=== PATIENT | male | born 1940 | race Caucasian/White ===

== ENCOUNTER 2022-12-29 12:45 | Outpatient (OUT) | payer MEDICARE, OTHER, SELFPAY ==
--- NOTE | 2022-12-29 13:00 | CT_ITS ---
The [address] [address] Patient Name: BABATUNDE MCNAIR MRN: [id number] date: 1940 Sex: M Assigned Patient Location: CT Current Patient Location: CT Accession/Order Number: [id number] Exam Date: 12/29/2022 13:00 Report Date: 12/29/2022 13:49 At the request of: RABIA JACOBSON Procedure: CT chest wo con EXAM: CT scan of the chest without contrast. Dose reduction technique used: Automated exposure control and/or adjustment of the mA and/or kV according to patient size and/or use of iterative reconstruction technique. REASON FOR EXAM: Bronchiectasis, groundglass opacity COMPARISON: CT scan dated 06/15/2022 FINDINGS: Bilateral bronchiectasis with mucus plugging and bronchial wall thickening, this is most prominent within the right lower lobe and right middle lobe. Numerous tiny bilateral nodular opacities throughout both lungs which have worsened compared to 06/15/2022. Mildly enlarged mediastinal lymph nodes are not significantly changed and likely reactive. Coronary atherosclerotic calcifications. T12 and L1 chronic compression fractures with mild height loss. No pneumothorax. No pleural effusion. No acute fractures. Remainder unremarkable. CT/CT chest wo con IMPRESSION: Bronchiectasis with mucus plugging throughout both lungs with numerous infectious/inflammatory nodules in both lungs that have worsened since 06/15/2022. Electronically authenticated by: NATALIIA VASQUEZ Date: 12/29/2022 13:49
== END 2022-12-29 12:46 | disposition home or self-care (01) ==
PROVIDERS: PCP Internal Medicine; Visit Provider Internal Medicine
DX: R91.8 Other nonspecific abnormal finding of lung field (principal); J47.9 Bronchiectasis, uncomplicated
CPT/HCPCS: 71250

== ENCOUNTER 2023-01-26 14:26 | Outpatient (OUT) | payer MEDICARE, OTHER, SELFPAY ==
[2023-01-26 15:29] LABS: Hematocrit 35.2 % (42.0-54.0); Hemoglobin 11.4 g/dL (14.0-18.0); Mean Corpuscular HGB Conc 32.4 g/dL (29.9-35.2); Mean Corpuscular Hemoglobin 30.1 pg (25.9-34.0); Mean Corpuscular Volume 92.9 fL (80.0-94.0); Mean Platelet Volume 10.1 fL (9.5-13.5); Platelet Count 228 10^3/uL (150-450); Red Blood Count 3.79 10^6/uL (4.70-6.10); Red Cell Distribution Width 12.9 % (11.0-15.0); White Blood Count 16.5 10^3/uL (4.0-11.0)
--- NOTE | 2023-01-26 15:35 | XR_ITS ---
The [address] [address] Patient Name: BABATUNDE MCNAIR MRN: [id number] date: 1940 Sex: M Assigned Patient Location: [facility] Current Patient Location: [facility] Accession/Order Number: [id number] Exam Date: 01/26/2023 15:40 Report Date: 01/26/2023 16:03 At the request of: RABIA JACOBSON Procedure: XR chest 2V EXAM: XR chest 2V HISTORY: Preop exam COMPARISON: 05/08/2015 TECHNIQUE: Upright PA and lateral chest x-ray FINDINGS: Patchy opacities throughout the right lung are compatible with infiltrates which may be acute or chronic in nature. These were not present in the prior study. Linear atelectasis or scarring persist at the extreme left lung base. The heart is not enlarged and the vasculature is not distended. There is flattening of the hemidiaphragms indicating COPD. Degenerative changes are seen in the spine. XR/XR chest 2V IMPRESSION: Patchy interstitial changes are seen throughout the right lung indicating infiltrates which were not apparent in the prior study. Chronic changes are noted at the left lung base. There is no evidence of overt cardiac decompensation. Electronically authenticated by: RIGOBERTO CHATMAN Date: 01/26/2023 16:03
[2023-01-26 15:38] LABS: Atypical Lymphocytes Abs Man 1.3; Band Neutrophils Absolute 0.3 10^3/uL (0.0-0.3); Eosinophils Absolute Manual 0.33 10^3/uL (0.00-0.70); Lymphocytes Absolute Manual 4.62 10^3/uL (1.20-3.80); Monocytes Absolute Manual 1.65 10^3/uL (0.30-0.80); Segmented Neut Absolute Manual 8.25 10^3/uL (1.4-6.5)
[2023-01-26 15:46] LABS: Anion Gap 10.7; BUN Creatinine Ratio 18.3; Calcium 8.2 mg/dL (8.5-10.1); Carbon Dioxide 27.7 mmol/L (21.0-32.0); Chloride 96 mmol/L (98-107); Estimated GFR (African America >60 (>=60); Estimated GFR (Non-African Ame >60 (>=60); Glucose 110 mg/dL (74-106); Potassium 4.4 mmol/L (3.5-5.1); Sodium 130 mmol/L (136-145)
[2023-01-26 16:01] LABS: Prothrombin Time 14.6 sec (9.0-11.6)
== END 2023-01-26 14:27 | disposition home or self-care (01) ==
PROVIDERS: PCP Internal Medicine; Visit Provider Internal Medicine
DX: Z01.812 Encounter for preprocedural laboratory examination (principal); J47.9 Bronchiectasis, uncomplicated; T17.990A Other foreign object in respiratory tract, part unspecified in causing asphyxiation, initial encounter
CPT/HCPCS: 36415; 71046; 80048; 85027; 85610; 85730

== ENCOUNTER 2023-01-31 06:34 | Day surgery (SDC) | payer MEDICARE, OTHER, SELFPAY ==
[2023-01-26 15:35] VITALS: BP 119/73; PULSE 69; RESP 20; TEMP 36.2; O2SAT 96; BMI 21.3
[2023-01-31] VITALS (11 sets, daily range): BP systolic 106–128; BP diastolic 70–85; PULSE 78–105; RESP 5–24; TEMP 36.6–36.9; O2SAT 93–100; BMI 20.6
--- NOTE | 2023-01-31 07:03 | PC.NURSE ---
shortness of breath with exertioin
[2023-01-31] MEDS: LACTATED RINGER'S SOLUTION 1,000 ML 50 ML IV (07:10)
[2023-01-31] MEDS: LIDOCAINE HCL 1% 100 MG/10 ML MDV INJ (07:50)
--- NOTE | 2023-01-31 08:12 | P.ON_ITS ---
Date of procedure: 01/31/23 Pre-op diagnosis: Mucus plugging secondary to bronchiectasis Post-op diagnosis: same as pre-op (No endobronchial lesions) Procedure: Procedure: Diagnostic and therapeutic fiberoptic bronchoscopy with bronchoalveolar lavage Anesthesia: Lidocaine 1%, 10mL topically; General anesthesia per the anesthesia department Specimens: Bronchoalveolar lavage of the right lower lobe Informed consent was obtained after risks, benefits, and alternatives were discussed with the patient.? Time out was initiated to confirm the correct patient, site, and procedure with all present voicing in the affirmative. Patient was brought to the operating room suite where noninvasive monitoring was utilized.? Sedation & anesthesia were administered by the anesthesia department- please refer to their records for further information.? Tape was placed over the patient's eyes to prevent spillage of secretions.? iGel airway was placed by anesthesia.? The vocal cords were observed without gross evidence of nodules, ulcers, or masses.? 5mL of 2% lidocaine were instilled topically to the vocal cords.? The bronchoscope was then passed between the vocal cords and advanced through the trachea without any gross tracheal lesions. The bronchoscope reached the distal trachea where an additional 5mL of 2% lidocaine were instilled topically to the main khanh.? The main khanh was sharp without splaying or evidence of underlying mass. A mild amount of mucus was noted in the right main bronchus which was removed via suction. The bronchoscope was then advanced through the right main bronchus to the right upper lobe, where the apical, posterior, and anterior segments were visualized.? The bronchoscope was advanced through the bronchus intermedius to the right middle lobe or the medial and lateral segments visualized.? A large mucus plug was noted partially obstructing the right lower lobe, which was then removed via suctioning. Once the proximal airway was cleared, the bronchoscope was then advanced to the right lower lobe superior, medial, anterior, lateral, and posterior basilar segments.? No endobronchial lesions, exudate, or other abnormalities were noted. The bronchoscope was retracted to the main khanh and advanced through the left main bronchus to the left upper lobe where the upper division apicoposterior and anterior, as well as lingular superior and inferior segments were visualized.? As with the right, a mucus plug was partially obstructing the left lower lobe bronchus. After removal, the bronchoscope was then advanced into the left lower lobe where the superior, anteromedial, lateral, and posterior basilar segments visualized.? No endobronchial lesions, exudate, or other abnormalities were noted. Next, a bronchoalveolar lavage was obtained from the right lower lobe. Smaller mucus plugs were noted from the distal bronchi. BAL was sent for cultures. Remaining mucus was removed from the left lower lobe after lavage. I returned to the right lower lobe and further mucus plugs were noted from there. They were removed via lavage until there was lack of return of plugs and secretions. The bronchoscope was removed. The patient tolerated the procedure well. Surgeon: Chance Solares Estimated blood loss (mL): 0 Pathology: none sent Condition: stable Disposition: same day
--- NOTE | 2023-01-31 08:36 | PC.NURSE ---
per Dr.Rapp smith to move pt to ambulatory to monitor until a minimum time of 2 hours. pt maintaining SpO2 without O2 or difficulty breathing
--- NOTE | 2023-01-31 09:59 | PC.NURSE ---
okay per that pt is discharged home.
== END 2023-01-31 10:07 | disposition home or self-care (01) ==
PROVIDERS: PCP Internal Medicine; Visit Provider Internal Medicine
PROC: (CPT 31624; principal; 2023-01-31 07:30)
DX: J47.9 Bronchiectasis, uncomplicated (principal); N18.9 Chronic kidney disease, unspecified; K21.9 Gastro-esophageal reflux disease without esophagitis; I48.0 Paroxysmal atrial fibrillation; Z87.891 Personal history of nicotine dependence; N40.0 Benign prostatic hyperplasia without lower urinary tract symptoms; Z79.899 Other long term (current) drug therapy; J45.991 Cough variant asthma; D83.9 Common variable immunodeficiency, unspecified; R91.8 Other nonspecific abnormal finding of lung field; Z22.39 Carrier of other specified bacterial diseases; E03.8 Other specified hypothyroidism; M19.90 Unspecified osteoarthritis, unspecified site
CPT/HCPCS: 31624; 36415; 87070; 87102; 87116; 87150; 87186; 87205; 87206; 99999; J2704

== ENCOUNTER 2023-07-08 12:27 | Outpatient (OUT) | payer MEDICARE, OTHER, SELFPAY ==
--- NOTE | 2023-07-08 12:34 | ECG_ITS ---
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
--- OUTSIDE RECORDS SUMMARY | 2023-07-08 12:50 | XMS_ITS | CCD ---
Author Organization [facility] Care Team Providers Care Multimedia Authoring Specialist Name Role Phone Rodriguez Quiroz Unavailable Unavailable Sweetie Burr Unavailable Unavailable Blaise Marie Unavailable Unavailable Brenda Oneal Unavailable Unavailable Blaise Marie Unavailable Unavailable Unavailable SAMSA ., RABIA Admitting Unavailable SAM .RABIA Attending Unavailable DR BLAISE MARIE Primary Care Unavailable GILSA ., RABIA Consulting Unavailable SAMSA .RABIA Admitting Unavailable INDIRA .RABIA Attending Unavailable DR BLAISE MARIE Primary Care Unavailable GILSA ., RABIA Consulting Unavailable IDALIA BELLA Consulting Unavailable TRINI IIYASMIN Consulting Unavailable Cynthia, Dr. Blaise Mcfarland Primary Care Unavaila michelle Marie, Dr. Blaise Mcfarland Referring Unavaila MD SWEETIE Cowan Attending Unavailable Cynthia, Dr. Blaise Mcfarland Primary Care Unavaila michelle Marie, Dr. Blaise Mcfarland Referring Unavaila MD SWEETIE Cowan Attending Unavailable Cynthia, Dr. Blaise Mcfarland Primary Care Unavaila ble Cynthia, Dr. Blaise Mcfarland Referring Unavaila ble Jose, Dr. Rodriguez Dominguez Attending Unav ailable Cynthia, Dr. Blaise Mcfarland Referring Unavaila ble Cynthia, Dr. Blaise Mcfarland Primary Care Unavaila MD SWEETIE Cowan Attending Unavailable Blaise Marie Primary Care Provider BLAISE MARIE Referring Unavailable BLAISE MARIE Primary Care Unavailable POLI CAMPBELL Attending Unavailable BLAISE MARIE Primary Care Unavailable Blaise Marie DO Primary Care Provider [phone] Blaise Marie DO Primary Care Provider [phone] REFUGIOSBLAISE Attending Unavailable YUHAS, BLAISE L Referring Unavailable YUHAS, BLAISE Beck Primary Care Unavailable YUHAS, BLAISE Beck Attending Unavailable YUHAS, BLAISE L Referring Unavailable YUHAS, BLAISE L Primary Care Unavailable YUHAS, BLAISE Beck Referring Unavailable YUHAS, BLAISE L Primary Care Unavailable SWEETIE BURR Attending Unavailable REFUGIOSBLAISE Primary Care Unavailable RODRIGUEZ QUIROZ Attending Unavailable SHAWN QUIROZ Referring Unavailable YUHAS, BLAISE MCFARLAND Primary Care Unavailable SWEETIE BURR Attending Unavailable YUHAS, BLAISE MCFARLAND Primary Care Unavailable SWEETIE BURR Attending Unavailable RAMONAHAS, BLAISE MCFARLAND Primary Care Unavailable SWEETIE BURR Referring Unavailable YUHAS, BLAISE L Primary Care Unavailable SWEETIE BURR M Referring Unavailable YUHAS, BLAISE L Primary Care Unavailable SAM, RABIA P Referring Unavailable YUHAS, BLAISE L Primary Care Unavailable YUHAS, BLAISE L Referring Unavailable YUHAS, BLAISE L Primary Care Unavailable KIESHA, SWEETIE M Referring Unavailable YUHAS, BLAISE L Primary Care Unavailable SAMSA, RABIA P Referring Unavailable YUHAS, BLAISE L Primary Care Unavailable Allergies Allergy Classification Reported Allergen(s) Allergy Type Date of Onset Reaction(s) Facility Fish (1 source) fish, unspecified Food Allergy -[facility] [place] [facility] DO Work Phone: Penicillins (antibiotic) (1 source) Penicillins; Translations: [Penicillins] [facility] [place] [facility] Work Phone: rivaroxaban (1 source) rivaroxaban; Translations: [Xarelto TABS] Drug Allergy 6 -[facility] [place] [facility] DO Work Phone: Sulfonamides (antibiotic) (1 source) Sulfonamides (Antibiotic); Translations: [Sulfa Drugs] Drug [facility]ergy [facility] [place] [facility] DO Work Phone: (20 sources) fish, unspecified allergy to substance [facility] (20 sources) Penicillins; Translations: [Penicillins] drug allergy 7 [facility] 3 Repository (17 sources) rivaroxaban; Translations: [Xarelto TABS] Drug Allergy 6 Unknown [facility] (20 sources) Sulfonamides (Antibiotic); Translations: [Sulfa Drugs] drug allergy Rash [facility]- [place] Work Phone: (5 sources) apixaban; Translations: [APIXABAN] Drug Allergy 6 [facility] Repository (5 sources) edoxaban; Translations: [EDOXABAN] Drug Allergy 6 [facility] Repository (1 source) Fish derivative Drug allergy (disorder) [facility] Repository (1 source) Penicillin Drug Allergy [facility] Repository (1 source) Sulfonamides (Antibiotic) Drug allergy (disorder) [facility] Repository (9 sources) apixaban Drug Allergy 6 Itching [facility] (9 sources) edoxaban Drug Allergy 6 [facility] (5 sources) Fish; Translations: [FISH CONTAINING PRODUCTS] Drug Allergy 3 Unknown [facility] (4 sources) levoFLOXacin; Translations: [LEVOFLOXACIN] Drug Allergy 3 Unknown [facility] (4 sources) Penicillins Drug Allergy 7 [facility] (13 sources) Sulfonamides (Antibiotic); Translations: [SULFA (SULFONAMIDE ANTIBIOTICS)] Drug Allergy 7 Itching, Rash [facility] (1 source) rivaroxaban; Translations: [RIVAROXABAN] Drug Allergy 6 [facility] 3 Repository Medications Current Medications Medication Drug Class(es) Dates Sig (Normalized) Sig (Original) acetaminophen 500 mg oral tablet (9 sources) take 1 tablet by mouth every six hours as needed for pain acetaminophen (TYLENOL) 500 mg tablet Take 1 tablet (500 mg total) by mouth every 6 (six) hours as needed for pain. 0 Active Comment on above: Take 500 mg by mouth every 6 hours as needed. atorvastatin 20 mg oral tablet (20 sources) HMG-CoA Reductase Inhibitor Start: 07-01-2023 take 1 tablet by mouth in the morning atorvastatin (LIPITOR) 20 mg tablet Indications: Mixed hyperlipidemia TAKE 1 TABLET (20 MG TOTAL) BY MOUTH IN THE MORNING 90 tablet 1 07/01/2023 Active Start: 12-07-2018 End: 07-01-2023 take 1 tablet by mouth in the morning atorvastatin (LIPITOR) 20 mg tablet Indications: Mixed hyperlipidemia TAKE 1 TABLET (20 MG TOTAL) BY MOUTH IN THE MORNING 90 tablet 1 12/12/2022 07/01/2023 Discontinued Start: 06-16-2018 End: 02-11-2023 atorvastatin (Lipitor) 10 mg tablet Take by mouth. 0 06/16/2018 02/11/2023 Discontinued (Therapy completed) Start: 06-16-2018 Atorvastatin C alcium 10 MG Oral Tablet Quantity: 0 Refills: 0 Ordered: 16-Jun-2018 Kiesha CERDA, Sweetie Hartman Start : 16-Jun-2018 Active Atorvastatin Carmelo cium 20 MG Oral Tablet Quantity: 0 Refills: 0 Ordered: 19-Mar-2022 DO Active Comment on above: Take 20 mg by mouth. cholecalciferol 0.05 mg oral capsule (20 sources) Vitamin D Start: 12-23-2017 cholecalciferol (Vitamin D-3) 50 mcg (2,000 unit) capsule Take 1 capsule (2,000 Units) by mouth. 0 12/23/2017 Active Start: 12-23-2017 cholecalcifero l (Vitamin D-3) 50 mcg (2,000 unit) capsule Take 1 capsule (50 mcg) by mouth. 0 12/23/2017 Active Start: 12-23-2017 Vitamin D3 50 MCG (2000 UT) Oral Capsule Quantity: 0 Refills: 0 Ordered: 23-Dec-2017 DO Start : 23-Dec-2017 Active Comment on above: Take 2,000 Units by mouth. famotidine 40 mg oral tablet (20 sources) Histamine-2 Receptor Antagonist Start: 04-17-2022 End: 04-29-2023 take 1 tablet by mouth once daily famotidine (PEPCID) 40 mg tablet Indications: Gastro-esophageal reflux disease without esophagitis TAKE 1 TABLET BY MOUTH EVERY DAY 90 tablet 1 04/29/2023 Active Start: 07-26-2016 End: 02-11-2023 take 1 tablet by mouth at bedtime Famotidine 20 MG Oral Tablet TAKE 1 TABLET AT BEDTIME. Quantity: 0 Refills: 0 Ordered: 23-Dec-2017 DO Start : 23-Dec-2017 Active Comment on above: Take 1 tablet by pb th once daily. finasteride 5 mg oral tablet (20 sources) 5-alpha Reductase Inhibitor Start: 015 End: take 1 tablet by mouth once daily finasteride (PROSCAR) 5 mg tablet Indications: Benign prostatic hyperplasia, unspecified whether lower urinary tract symptoms present TAKE 1 TABLET BY MOUTH EVERY DAY 90 tablet 4 04/06/2022 Active Comment on above: Take 1 tablet by pb once daily. IMMUN GLOB G,IGG,/PRO/IGA 0-50 (HIZENTRA SUBQ) (5 sources) IMMUN GLOB G,IGG,/PRO/IGA 0-50 (HIZENTRA SUBQ) Inject under the skin every 7 days. 0 Active 10 ml immunoglobulin g, human 200 mg/ml prefilled syringe (20 sources) Human Immunoglobulin G Start: 023 End: immune globulin, human, (Hizentra) subcutaneous infusion Inject 35 mL (7 g) under the skin 1 (one) time per week. Infuse via FREEDOM 60 pump subcutaneously into 2-3 sites over 60 minutes using f1200 tubing. Allow medication to reach room temperature prior to administration. Storage: Refrigerate. 0 08/06/2022 08/06/2023 Active Start: 08-06-2022 End: 02-11-2023 immune globulin, human, (Hiz entra) subcutaneous infusion Inject 7 mL (1,400 mg) under the skin 1 (one) time per week. Infuse via FREEDOM 60 pump subcutaneously into 2-3 sites over 60 minutes using f1200 tubing. Allow medication to reach room temperature prior to administration. Storage: Refrigerate. 0 08/06/2022 02/11/2023 Discontinued (Therapy completed) Start: 08-06-2022 End: 02-11-2023 immune globulin, human, (Hiz entra) subcutaneous infusion Inject 35 mL (7 g) under the skin 1 (one) time per week. Infuse via FREEDOM 60 pump subcutaneously into 2-3 sites over 60 minutes using f1200 tubing. Allow medication to reach room temperature prior to administration. Storage: Refrigerate. 0 08/06/2022 02/11/2023 Discontinued (Therapy completed) End: 02-11-2023 immune globulin, human, (Hiz entra) subcutaneous infusion Inject 30 mL (6 g) under the skin 1 (one) time per week. 0 02/11/2023 Discontinued (Therapy completed) Hizentra 1 GM/5M L Subcutaneous Solution use as directed once weekly Quantity: 0 Refills: 0 Ordered: 29-Apr-2017 DO Active levothyroxine sodium 0.075 mg oral tablet (20 sources) l-Thyroxine Start: 06-16-2023 take 1 tablet by mouth once daily levothyroxine (SYNTHROID, LEVOTHROID) 75 MCG tablet Indications: Other specified hypothyroidism TAKE 1 TABLET BY MOUTH EVERY DAY 90 tablet 1 06/16/2023 Active Start: 06-16-2018 End: 06-16-2023 take 1 tablet by mouth once daily levothyroxine (Synthroid, Levoxyl) 75 mcg tablet Take 1 tablet (75 mcg) by mouth once daily. 0 06/16/2018 Active Start: 06-16-2018 Levothyroxine Sodium 75 MCG Oral Tablet Quantity: 0 Refills: 0 Ordered: 16-Jun-2018 Kiesha CERDA, Sweetie Hartman Start : 16-Jun-2018 Active Comment on above: Take 1 tablet by pb once daily. rivaroxaban 20 mg oral tablet (20 sources) Factor Xa Inhibitor Start: take 1 tablet by mouth in the morning rivaroxaban (XARELTO) 20 mg tablet tablet Take 1 tablet (20 mg total) by mouth in the morning. 90 tablet 3 08/17/2022 Active Start: 10-20-2021 End: 02-11-2023 rivaroxaban (Xarelto) 15 mg tablet Take 1 tablet (15 mg) by mouth. 0 10/20/2021 02/11/2023 Discontinued (Therapy completed) Comment on above: Take 20 mg by mouth. sodium chloride 30 mg/ml inhalation solution (19 sources) Start: 05-12-2023 sodium chloride 3 % nebulizer solution Take by nebulization if needed for cough. 0 05/12/2023 Active Start: 03-20-2023 sodium chlorid e 0.9 % nebulizer solution Inhale 3 mL by nebulization in the morning and 3 mL at noon and 3 mL in the evening and 3 mL before bedtime. 90 mL 12 03/20/2023 Active Start: 01-04-2023 sodium chlorid e 3 % nebulizer solution Start: 05-11-2022 End: 06-14-2023 take 1 dose by mouth three times daily sodium chloride 0.9 % nebulizer solution INHALE 1 VIAL BY MOUTH 3 TIMES DAILY 0 05/11/2022 06/14/2023 Discontinued (Med List Cleanup) Comment on above: INHALE 1 VIAL BY [facility] 3 TIMES DAILY 30 actuat umeclidinium 0.0625 mg/actuat / vilanterol 0.025 mg/actuat dry powder inhaler (4 sources) Anticholinergic, beta2-Adrenergic Agonist Start: take 1 puff(s) by inhalation in the morning umeclidinium-vilante roL (ANORO ELLIPTA) 62.5-25 mcg/actuation blister with device Indications: Chronic obstructive pulmonary disease, unspecified COPD type ([facility]) Inhale 1 puff in the morning. 90 each 1 05/24/2023 Active Start: 05-24-2023 take 1 puff(s) by in halation once daily Anoro Ellipta 62.5-25 mcg/actuation blister with device Inhale 1 puff once daily. 0 05/24/2023 Active Completed/Discontinued Medications Medication Drug Class(es) Dates Sig (Normalized) Sig (Original) amiodarone hydrochloride 100 mg oral tablet (3 sources) Antiarrhythmic Start: 07-30-2014 take 1 tablet by mouth once daily Amiodarone HCl - 100 MG Oral Tablet TAKE 1 TABLET DAILY. Refills: 0 Start : 30-Jul-2014 Active dabigatran etexilate 150 mg oral capsule (16 sources) Start: 12-23-2017 End: 02-11-2023 take 1 capsule by mouth twice daily dabigatran etexilate (Pradaxa) 150 mg capsule Take 1 capsule (150 mg) by mouth 2 times a day. 0 12/23/2017 02/11/2023 Discontinued (Therapy completed) [id number] 0.3 ml EPINEPHrine 1 mg/ml auto-injector (6 sources) alpha-Adrenergic Agonist, beta-Adrenergic Agonist, Catecholamine Start: 11-13-2014 EpiPen 2-Mc 0.3 MG/0.3ML Injection Solution Auto-injector Quantity: 2 Refills: 0 Start : 13-Nov-2014 Active 30 actuat fluticasone furoate 0.2 mg/actuat / vilanterol 0.025 mg/actuat dry powder inhaler (20 sources) Corticosteroid, beta2-Adrenergic Agonist Start: 03-26-2023 End: 05-24-2023 take 1 puff(s) by inhalation in the morning fluticasone furoate-vilantero L (BREO ELLIPTA) 200-25 mcg/dose blister with device Inhale 1 puff in the morning. 180 each 1 03/26/2023 05/24/2023 Discontinued (Cost of medication) Start: 01-24-2023 take 1 puff(s) by in halation once daily fluticasone-vilanterol (BREO ELLIPTA) 200-25 mcg/dose inhaler INHALE 1 PUFF INTO THE LUNGS EVERY DAY 0 01/24/2023 Active Start: 06-07-2017 End: 06-14-2023 take 1 puff(s) by inhalation once daily fluticasone furoate-vilanteroL (Breo Ellipta) 200-25 mcg/dose inhaler Inhale 1 puff once daily. 0 06/07/2017 06/14/2023 Discontinued (Therapy completed) Start: 06-07-2017 Breo Ellipta 2 00-25 MCG/INH AEPB Quantity: 0 Refills: 0 Ordered: 07-Jun-2017 DO Start : 07-Jun-2017 Active Comment on above: INHALE 1 PUFF INTO T HE LUNGS EVERY DAY immun glob G,IgG,/pro/IgA 0-50 (HIZENTRA SUBCUTANEOUS) (1 source) immun glob G,IgG,/pro/IgA 0-50 (HIZENTRA SUBCUTANEOUS) Inject subcutaneously. 0 Active Comment on above: Inject subcutaneousl y. levoFLOXacin 500 mg oral tablet (5 sources) Quinolone Antimicrobial Start: 02-13-20 20 take 1 tablet by mouth once daily levoFLOXacin 500 MG Oral Tablet Take 1 tablet daily Quantity: 10 Refills: 1 Ordered: 19-Mar-2022 Rodriguez Quiroz MD Start : 13-Feb-2020 Active CLARIFICATION: PRIOR COMMENT WAS OLD. RENAL FUNCTION IMPROVED AND CAN TAKE 500 MG DAILY. Start: 07-25-2018 take 1 tablet by pb th once daily levoFLOXacin 500 MG Oral Tablet TAKE 1 TABLET DAILY. Quantity: 10 Refills: 0 Rodriguez Quiroz MD Start : 25-Jul-2018 Active Nebulizer/Tubing/Mouthpiece KIT (6 sources) Start: 09-28-2018 Nebulizer/Tubing/Mouthpiece KIT USE DIRECTED. Quantity: 1 Refills: 6 Sweetie Burr MD Start : 28-Sep-2018 Active Start: 07-15-2016 Nebulizer/Tubi ng/Mouthpiece KIT USE DIRECTED. Quantity: 1 Refills: 0 Sweetie Burr MD Start : 15-Jul-2016 Active tobramycin 60 mg/ml inhalation solution (20 sources) Aminoglycoside Antibacterial Start: 12-17-2020 Tobramycin 300 MG/5M L Inhalation Nebulization Solution INHALE THE CONTENTS OF 1 AMPULE VIA NEBULIZER DAILY FOR 14 DAYS ON, THEN 14 DAYS OFF - REFILLS CALL: [phone] Quantity: 16 Refills: 12 Ordered: 19-Mar-2022 Rodriguez Quiroz MD Start : 17-Dec-2020 Active YES, OK TO DISPENSE 16 AMPULES Start: 06-02-2015 Tobramycin 300 MG/5ML Inhalation Nebulization Solution INHALE THE CONTENTS OF 1 AMPULE VIA NEBULIZER DAILY FOR 14 DAYS ON, THEN 14 DAYS OFF - REFILLS CALL: [phone] Quantity: 14 Refills: 6 Ordered: 15-Apr-2020 Rodriguez Quiroz MD Start : 02-Jun-2015 Active Start: 06-02-2015 Tobramycin 300 MG/5ML Inhalation Nebulization Solution INHALE THE CONTENTS OF 1 AMPULE (300MG) VIA NEBULIZER TWICE DAILY FOR14 DAYS ON, THEN 14 DAYS OFF - REPEAT. Quantity: 1 Refills: 3 Rodriguez Quiroz MD Start : 02-Jun-2015 Active 56 x 5 ML Plas Cont Start: 06-02-2015 Tobramycin 300 MG/5ML Inhalation Nebulization Solution USE 1 UNIT DOSE IN NEBULIZER TWICE DAILY FOR 14 DAYS ON, AND 14 DAYS OFF then repeat Quantity: 1 Refills: 6 Rodriguez Quiroz MD Start : 02-Jun-2015 Active 5 ML Plas Cont (56 Plas Conts) triamcinolone acetonide 0.055 mg/actuat metered dose nasal spray (5 sources) Corticosteroid Start: 11-12-2022 Nasacort Aller gy 24HR 55 MCG/ACT Nasal Aerosol INSTILL 2 SPRAY Daily Quantity: 1 Refills: 3 Ordered: 12-Nov-2022 Sweetie Burr MD Start : 12-Nov-2022 Active Start: 04-01-2021 Triamcinolone Acetonide 0.1 % External Cream APPLY THIN COAT TO AFFECTED AREA TWICE A DAY Quantity: 30 Refills: 0 Ordered: 01-Apr-2021 DO Start : 01-Apr-2021 Active Problems Active Problems Problem Classification Problem Date Documented Da te Episodic/Chronic Acute bronchitis (1 source) Acute bronchitis; Translations: [Bronchitis, acute] Episodic Asthma (12 sources) Asthma; Translations: [Asthma, unspecified type, unspecified] Onset: 3 Chronic Bacterial infection; unspecified site (6 sources) Pneumococcal infectious disease; Translations: [Streptococcus pneumoniae] Episodic Cancer; other and unspecified primary (20 sources) H/O: malignant neoplasm; Translations: [Personal history of unspecified malignant neoplasm] Episodic Cardiac dysrhythmias (17 sources) Unspecified atrial fibrillation; Translations: [Paroxysmal atrial fibrillation] Onset: 9 Resolved: 2 02-10-2023 Chronic Chronic kidney disease (20 sources) Chronic kidney disease; Translations: [Chronic kidney disease, unspecified] Onset: 7 02-10-2023 Chronic Chronic kidney disease (1 source) Chronic kidney disease; Translations: [Chronic kidney disease, stage 3a] Onset: 2 Chronic obstructive pulmonary disease and bronchiectasis (20 sources) Bronchiectasis; Translations: [Bronchiectasis without acute exacerbation] Onset: 8 Chronic Deficiency and other anemia (1 source) Anemia, unspecified; Translations: [ANEMIA UNSPECIFIED] Onset: 3 Episodic Diseases of white blood cells (20 sources) Leukocytosis; Translations: [Leukocytosis, unspecified] Onset: 3 02-02-2023 Chronic Disorders of lipid metabolism (13 sources) Hyperlipidemia; Translations: [Hyperlipidemia, unspecified] Onset: 1 02-10-2023 Chronic Esophageal disorders (10 sources) Gastro-esophageal reflux disease without esophagitis; Translations: [Gastric reflux] Onset: 7 02-10-2023 Chronic Essential hypertension (1 source) Hypertensive disorder Onset: 4 Chronic Hyperplasia of prostate (9 sources) Benign prostatic hyperplasia without lower urinary tract symptoms; Translations: [Benign prostatic hyperplasia] Onset: 7 02-10-2023 Chronic Hypertension with complications and secondary hypertension (1 source) Hypertensive chronic kidney disease with stage 1 through stage 4 chronic kidney disease, or unspecified chronic kidney disease; Translations: [HTN CKD W/STAGE 1-4 CKD/UNS CKD] Onset: 3 Chronic Immunity disorders (20 sources) Common variable agammaglobulinemia; Translations: [Common variable immunodeficiency] Onset: 0 02-02-2023 Chronic Leukemias (12 sources) Chronic lymphoid leukemia, disease; 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] Onset: 3 02-02-2023 Chronic Osteoarthritis (8 sources) Arthritis; Translations: [Unspecified osteoarthritis, unspecified site] Onset: 7 02-10-2023 Chronic Other aftercare (1 source) longterm (current) use of anticoagulants; Translations: [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 USE 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] Onset: 3 Episodic Other aftercare (1 source) Other retirement (current) drug therapy; Translations: [OTH CORRECTION CURRENT DRUG THERAPY] Onset: 3 Episodic Other connective tissue disease (20 sources) H/O: arthritis; Translations: [Personal history of arthritis] Episodic Other gastrointestinal disorders (5 sources) H/O: gastrointestinal disease; Translations: [History of esophageal reflux] Episodic Other gastrointestinal disorders (20 sources) Personal history of other diseases of the digestive system; Translations: [History of gastroesophageal reflux disease] Episodic Other lower respiratory disease (6 sources) Cough; Translations: [Cough] Episodic Other lower respiratory disease (6 sources) Wheezing; Translations: [Wheezing] Episodic Other lower respiratory disease (15 sources) H/O: asthma; Translations: [Personal history of other diseases of respiratory system] Episodic Other lower respiratory disease (2 sources) Other nonspecific abnormal finding of lung field; Translations: [OTH NONSPECIFIC ABN FIND LNG FIELD] Onset: 3 Episodic Other nervous system disorders (20 sources) Personal history of other diseases of the nervous system and sense organs; Translations: [H/O: cataract] Episodic Other nervous system disorders (6 sources) Sense of smell impaired; Translations: [Decreased sense of smell] Episodic Other upper respiratory infections (20 sources) Chronic sinusitis; Translations: [Chronic maxillary sinusitis] Onset: 7 02-10-2023 Chronic Pleurisy; pneumothorax; pulmonary collapse (1 source) Pleural effusion, not elsewhere classified; Translations: [PLEURAL EFFUSION NEC] Onset: 3 Episodic Residual codes; unclassified (8 sources) Obstructive sleep apnea syndrome; Translations: [Obstructive sleep apnea (adult) (pediatric)] Onset: 7 02-10-2023 Chronic Screening and history of mental health and substance abuse codes (20 sources) Ex-smoker; Translations: [Personal history of tobacco use] Onset: 3 Episodic Thyroid disorders (9 sources) Secondary hypothyroidism; Translations: [Other specified hypothyroidism] Onset: 9 02-10-2023 Chronic Unclassified (1 source) CONTACT W/AND (SUSP) EXPOS COVID-19; Translations: [CONTACT W/AND (SUSP) EXPOS COVID-19] Onset: 3 Past or Other Problems Problem Classification Problem Date Documented Date Episodic/Chronic Cardiac dysrhythmias (5 sources) Palpitations; Translations: [Palpitations] Onset: 08-22-2018 Resolved: 12-09-2021 12-09-2021 Episodic Chronic obstructive pulmonary disease and bronchiectasis (5 sources) Haemophilus influenzae laryngotracheobronchi tis; Translations: [Bronchitis, not specified as acute or chronic] Onset: 03-20-2023 03-20-2023 Episodic Chronic obstructive pulmonary disease and bronchiectasis (6 sources) Chronic bronchiolitis; 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] Fluid and electrolyte disorders (5 sources) Acute hyponatremia; Translations: [Hypo-osmolality and hyponatremia] Onset: 03-18-2023 03-18-2023 Episodic Immunizations and screening for infectious disease (20 sources) Infectious disease carrier; Translations: [Carrier or suspected carrier of other specified bacterial diseases] Onset: 02-10-2023 02-15-2023 Episodic Malaise and fatigue (5 sources) Fatigue; Translations: [Other fatigue] Onset: 04-02-2015 Resolved: 12-09-2021 12-09-2021 Episodic Mood disorders (5 sources) Mood disorders Onset: 04-05-2023 Resolved: 05-24-2023 04-05-2023 Other aftercare (5 sources) Drug therapy finding; Translations: [Other retirement (current) drug therapy] Onset: 04-19-2018 Resolved: 06-01-2019 06-01-2019 Episodic Other lower respiratory disease (5 sources) Hypoxemia; Translations: [Hypoxemia] Onset: 03-18-2023 03-18-2023 Episodic Other lower respiratory disease (10 sources) Dyspnea; Translations: [Dyspnea, unspecified] Onset: 08-22-2018 Resolved: 06-01-2019 06-01-2019 Episodic Other male genital disorders (20 sources) Disorder of prostate; Translations: [Unspecified disorder of prostate] Resolved: 09-24-2014 Episodic Other upper respiratory disease (20 sources) Polyp of nasal cavity and/or nasal sinus; Translations: [Unspecified nasal polyp] Onset: 02-10-2023 02-10-2023 Episodic Other upper respiratory disease (6 sources) Polyp of nasal cavity and/or nasal sinus; Translations: [Nasal polyp] Pneumonia (except that caused by tuberculosis or sexually transmitted disease) (20 sources) Pneumonia; Translations: [Community acquired pneumonia] Onset: 11-04-2016 02-10-2023 Episodic Poisoning by other medications and drugs (20 sources) Adverse reaction to drug; Translations: [Unspecified drug or medicinal substance causing adverse effects in therapeutic use] Onset: 02-10-2023 02-10-2023 Episodic Spondylosis; intervertebral disc disorders; other back problems (8 sources) Spinal stenosis; Translations: [Spinal stenosis, site unspecified] Onset: 11-04-2016 02-10-2023 Episodic Unclassified (6 sources) Patient encounter status; Translations: [Encounter for administration of vaccine] NEGATED: Highlighted row has not occurred!Residual codes; unclassified (20 sources) Disease Episodic Results Test Name Value Interpretation Reference Range Facility XR CHEST 2 VWSon 07-05-2023 XR CHEST 2 VWS XR CHEST 2 VWS CHEST 2 VIEWS HISTORY: Bronchiectasis COMPARISON: CT chest 04/27/2023 IMPRESSION: * Extensive bronchiectasis in each lung with associated bronchial wall thickening, right worse than left. * No pleural effusions or pneumothorax. Finalized by Rabia Dias MD on 07/05/2023 7:54 AM [facility] IGGon 06-09-2023 IgG [Mass/Vol] 826 mg/dL Normal 635-1741 [facility] Comment on above: Performed By: #### 2 465-3 #### [facility] ([id number]) [address] [place] [address] COMPREHENSIVE METABOLIC PANE Frank 06-07-2023 Albumin [Mass/Vol] 3.7 g/dL Normal 3.2-5.3 [facility] Comment on above: Performed By: #### C MP #### [facility] ([id number]) [address] [place] [address] ALP [Catalytic activity/Vol] 115 U/L Normal 39-130 [facility] Comment on above: Performed By: #### C MP #### [facility] ([id number]) [address], [address] [place] [address] ALT [Catalytic activity/Vol] 10 U/L Normal 0-40 [facility] Comment on above: Performed By: #### C MP #### [facility] ([id number]) [address], [address] [place] [address] Anion gap [Moles/Vol] 8 mmol/L Normal 5-15 [facility] Comment on above: Performed By: #### C MP #### [facility] ([id number]) [address], [address] [place] [address] AST [Catalytic activity/Vol] 16 U/L Normal 0-41 [facility] Comment on above: Performed By: #### C MP #### [facility] ([id number]) [address] [place] [address] Bilirubin [Mass/Vol] 0.7 mg/dL Normal 0.3-1.2 [facility] Comment on above: Performed By: #### C MP #### [facility] ([id number]) [address] [address] [place] [address] Calcium [Mass/Vol] 9.1 mg/dL Normal 8.5-10.5 [facility] Comment on above: Performed By: #### C MP #### [facility] ([id number]) [address] [address] [place] [address] Chloride [Moles/Vol] 96 mmol/L Low 98-109 [facility] Comment on above: Performed By: #### C MP #### [facility] ([id number]) [address] [address] [place] [address] CO2 [Moles/Vol] 28 mmol/L Normal 22-32 [facility] Comment on above: Performed By: #### C MP #### [facility] ([id number]) [address] [address] [place] [address] Creatinine [Mass/Vol] 1.18 mg/dL Normal 0.60-1.30 [facility] Comment on above: Result Comment: METH OD TRACEABLE TO IDMS STANDARD Performed By: #### C MP #### [facility] ([id number]) [address] [address] [place] [address] GFR/1.73 sq M.predicted among non-blacks MDRD (S/P/Bld) [Vol rate/Area] 61 mL/min/{1.73_m2} Normal >59 [facility] Comment on above: Result Comment: Reported eGFR is based on the CKD-EPI 1 equation that does not use a race coefficient. Performed By: #### C MP #### [facility] ([id number]) [address] [address] [place] [address] Glucose [Mass/Vol] 88 mg/dL Normal 65-99 [facility] Comment on above: Performed By: #### C MP #### [facility] ([id number]) [address] [place] [address] Potassium [Moles/Vol] 3.8 mmol/L Normal 3.5-5.0 [facility] Comment on above: Performed By: #### C MP #### [facility] ([id number]) [address] [place] [address] Protein [Mass/Vol] 6.0 g/dL Normal 6.0-8.0 [facility] Comment on above: Performed By: #### C MP #### [facility] ([id number]) [address] [place] [address] Sodium [Moles/Vol] 132 mmol/L Low 134-146 [facility] Comment on above: Performed By: #### C MP #### [facility] ([id number]) [address] [place] [address] Urea nitrogen [Mass/Vol] 20 mg/dL Normal 5-27 [facility] Comment on above: Performed By: #### C MP #### [facility] ([id number]) [address] [place] [address] COMPLETE BLOOD COUNTon 05-24 Erythrocyte distribution width (RBC) [Ratio] 14.9 % Normal 11.5-15.0 [facility] Comment on above: Performed By: #### C BC #### [facility] ([id number]) [address] [place] [address] Hematocrit (Bld) [Volume fraction] 38.7 % Low 39-49 [facility] Comment on above: Performed By: #### C BC #### [facility] ([id number]) [address] [place] [address] Hemoglobin (Bld) [Mass/Vol] 12.5 g/dL Low 13.0-17.0 [facility] Comment on above: Performed By: #### C BC #### [facility] ([id number]) [address] [place] [address] MCH (RBC) [Entitic mass] 29.6 pg Normal 27-34 [facility] Comment on above: Performed By: #### C BC #### [facility] ([id number]) [address] [place] [address] MCHC (RBC) [Mass/Vol] 32.2 g/dL Normal 32-36 [facility] Comment on above: Performed By: #### C BC #### [facility] ([id number]) [address] [place] [address] MCV (RBC) [Entitic vol] 92 fL Normal 80-100 [facility] Comment on above: Performed By: #### C BC #### [facility] ([id number]) [address] [place] [address] Platelet mean volume (Bld) [Entitic vol] 9.5 fL Normal 7-12 [facility] Comment on above: Performed By: #### C BC #### [facility] ([id number]) [address] [place] [address] Platelets (Bld) [#/Vol] 244 10*3/uL Normal 150-450 [facility] Comment on above: Performed By: #### C BC #### [facility] ([id number]) [address] [place] [address] RBC COUNT 4.21 X10E12/L Normal 4.10-5.70 [facility] Comment on above: Performed By: #### C BC #### [facility] ([id number]) [address] [place] [address] WBC (Bld) [#/Vol] 23.5 10*3/uL High 4.0-11.0 [facility] Comment on above: Performed By: #### C BC #### [facility] ([id number]) [address] [place] [address] COMPREHENSIVE METABOLIC PANE Rfank 05-24-2023 Albumin [Mass/Vol] 3.8 g/dL Normal 3.2-5.3 [facility] Comment on above: Performed By: #### Jeronimo VANEGAS, 70990-2 #### [facility] ([id number]) [address] [place] [address] ALP [Catalytic activity/Vol] 112 U/L Normal 39-130 [facility] Comment on above: Performed By: #### Jeronimo VANEGAS, 52445-3 #### [facility] ([id number]) [address] [place] [address] ALT [Catalytic activity/Vol] 10 U/L Normal 0-40 [facility] Comment on above: Performed By: #### Jeronimo VANEGAS, 16752-4 #### [facility] ([id number]) [address] [place] [address] Anion gap [Moles/Vol] 6 mmol/L Normal 5-15 [facility] Comment on above: Performed By: #### Jeronimo VANEGAS, 43169-5 #### [facility] ([id number]) [address] [place] [address] AST [Catalytic activity/Vol] 17 U/L Normal 0-41 [facility] Comment on above: Performed By: #### Jeronimo VANEGAS, 34258-5 #### [facility] ([id number]) [address] [place] [address] Bilirubin [Mass/Vol] 0.8 mg/dL Normal 0.3-1.2 [facility] Comment on above: Performed By: #### Jeronimo VANEGAS, 53934-3 #### [facility] ([id number]) [address] [place] [address] Calcium [Mass/Vol] 9.6 mg/dL Normal 8.5-10.5 [facility] Comment on above: Performed By: #### Jeronimo VANEGAS, 26063-8 #### [facility] ([id number]) [address] [place] [address] Chloride [Moles/Vol] 97 mmol/L Low 98-109 [facility] Comment on above: Performed By: #### Jeronimo VANEGAS, 33134-6 #### [facility] ([id number]) [address] [place] [address] CO2 [Moles/Vol] 30 mmol/L Normal 22-32 [facility] Comment on above: Performed By: #### Jeronimo VANEGAS, 73701-3 #### [facility] ([id number]) [address] [place] [address] Creatinine [Mass/Vol] 1.22 mg/dL Normal 0.60-1.30 [facility] Comment on above: Result Comment: METH OD TRACEABLE TO IDMS STANDARD Performed By: #### Jeronimo VANEGAS, 13300-0 #### [facility] ([id number]) [address] [place] [address] GFR/1.73 sq M.predicted among non-blacks MDRD (S/P/Bld) [Vol rate/Area] 58 mL/min/{1.73_m2} Low >59 [facility] Comment on above: Result Comment: Reported eGFR is based on the CKD-EPI 2020 equation that does not use a race coefficient. Performed By: #### Jeronimo VANEGAS, 92146-1 #### [facility] ([id number]) [address] [place] [address] Glucose [Mass/Vol] 94 mg/dL Normal 65-99 [facility] Comment on above: Performed By: #### Jeronimo VANEGAS, 45265-6 #### [facility] ([id number]) [address] [place] [address] Potassium [Moles/Vol] 4.1 mmol/L Normal 3.5-5.0 [facility] Comment on above: Performed By: #### Jeronimo VANEGAS, 31088-0 #### [facility] ([id number]) [address] [place] [address] Protein [Mass/Vol] 6.7 g/dL Normal 6.0-8.0 [facility] Comment on above: Performed By: #### Jeronimo VANEGAS, 58699-5 #### [facility] ([id number]) [address] [place] [address] Sodium [Moles/Vol] 133 mmol/L Low 134-146 [facility] Comment on above: Performed By: #### Jeronimo VANEGAS, 62336-5 #### [facility] ([id number]) [address] [place] [address] Urea nitrogen [Mass/Vol] 17 mg/dL Normal 5-27 [facility] Comment on above: Performed By: #### Jeronimo VANEGAS, 49992-5 #### [facility] ([id number]) [address] [place] [address] Comprehensive metabolic pane frank 05-24-2023 Albumin [Mass/Vol] 3.8 g/dL 3.2 - 5.3 g/dL [facility] ALP [Catalytic activity/Vol] 112 U/L 39 - 130 U/L [facility] ALT No additional P-5'-P [Catalytic activity/Vol] 10 U/L 0 - 40 U/L [facility] Anion gap [Moles/Vol] 6 mmol/L 5 - 15 mmol/L [facility] AST [Catalytic activity/Vol] 17 U/L 0 - 41 U/L [facility] Bilirubin [Mass/Vol] 0.8 mg/dL 0.3 - 1.2 mg/dL [facility] Calcium [Mass/Vol] 9.6 mg/dL 8.5 - 10. 5 mg/dL [facility] Chloride [Moles/Vol] 97 mmol/L Low 98 - 109 mmol/L [facility] CO2 [Moles/Vol] 30 mmol/L 22 - 32 mmol/L [facility] Creatinine [Mass/Vol] 1.22 mg/dL 0.60 - 1.30 mg/dL [facility] Comment on above: METHOD TRACEABLE TO [facility] STANDARD eGFR (CKD-EPI)non-race dependent 58 Low - PINF [facility] Comment on above: Reported eGFR is based on the CKD-EPI 2020 equation that does not use a race coefficient. Glucose [Mass/Vol] 94 mg/dL 65 - 99 mg/dL [facility] Potassium [Moles/Vol] 4.1 mmol/L 3.5 - 5.0 mmol/L [facility] Protein [Mass/Vol] 6.7 g/dL 6.0 - 8.0 g/dL [facility] Sodium [Moles/Vol] 133 mmol/L Low 134 - 146 mmol/L [facility] Urea nitrogen [Mass/Vol] 17 mg/dL 5 - 27 mg/dL [facility] Lipid 1996 panelon 4 Cholesterol [Mass/Vol] 98 mg/dL Low 150 - 200 mg/dL [facility] Cholesterol in HDL [Mass/Vol] 45 mg/dL 39 - PINF mg/dL [facility] Comment on above: HDL <40 mg/dL - High Risk HDL > or = 40mg/dL- Desirable HDL >60 mg/dL - Negative Risk Cholesterol in LDL [Mass/Vol] 40 mg/dL NINF - 130 mg/dL [facility] Comment on above: LDL <100 mg/dL - Desirable LDL >160 mg/dL - High Risk Cholesterol in VLDL [Mass/Vol] 13 mg/dL 0 - 30 mg/dL [facility] Cholesterol.total/ Cholesterol in HDL [Mass ratio] 2.2 {ratio} 1.0 - 5.0 [facility] Triglyceride [Mass/Vol] 63 mg/dL 27 - 150 mg/dL [facility] Cholesterol [Mass/Vol] 98 mg/dL Low 150-200 [facility] Comment on above: Performed By: #### Jeronimo VANEGAS, 22787-5 #### [facility] ([id number]) [address] [place] [address] Cholesterol in HDL [Mass/Vol] 45 mg/dL Normal >39 [facility] Comment on above: Result Comment: HDL <40 mg/dL - High Risk HDL > or = 40mg/dL- Desirable HDL >60 mg/dL - Negative Risk Performed By: #### Jeronimo VANEGAS, 12170-7 #### [facility] ([id number]) [address] [place] [address] Cholesterol in LDL [Mass/Vol] 40 mg/dL Normal <130 [facility] Comment on above: Result Comment: LDL <100 mg/dL - Desirable LDL >160 mg/dL - High Risk Performed By: #### Jeronimo VANEGAS, 40181-6 #### [facility] ([id number]) [address] [place] [address] Cholesterol in VLDL [Mass/Vol] 13 mg/dL Normal 0-30 [facility] Comment on above: Performed By: #### Jeronimo VANEGAS, 32272-0 #### [facility] ([id number]) [address] [place] [address] CHOLESTEROL:HDL 2.2 Normal 1.0-5.0 [facility] Comment on above: Performed By: #### C ROMINA, 71752-8 #### [facility] ([id number]) [address] [place] [address] Triglyceride [Mass/Vol] 63 mg/dL Normal 27-150 [facility] Comment on above: Performed By: #### C ROMINA, 61461-0 #### [facility] ([id number]) [address] [facility], [address] [address] No Panel Informationon 05-24 Interpretation and review of laboratory results Abnormal [facility] IGGon 05-05-2023 IgG [Mass/Vol] 748 mg/dL Normal 635-1741 [facility] Comment on above: Performed By: #### 2 465-3 #### [facility] ([id number]) [address] [facility], [address] [address] [address] CHEST W CONTon 04-29-[address] CT CHEST W CONT CT CHEST W CONT Study: Contrast-enhanced CT of the chest dated 04/27/2023 10:47 AM. Indication: Lung mass. Comparison: CT the chest from 03/17/2023, 06/15/2022, 03/22/2022 and 10/05/2016 . Technique: After the injection of intravenous nonionic iodinated contrast, axial CT of the chest was performed from the lung apices to the hemidiaphragms. 2-D reformats were obtained. All CT scans at this facility use dose modulation, iterative reconstruction, and/or weight based dosing when appropriate to reduce radiation dose to as low as reasonably achievable. Findings: The central airways are patent. Similar degree of diffuse bronchiectasis more pronounced at the lung bases with bronchial impaction and bronchial wall thickening most pronounced in the bilateral lower lobes. Again seen is marked scattered peribronchovascular tree-in-bud nodules with scant groundglass opacity throughout all lobes. Previously noted right upper lobe subpleural masslike consolidation has demonstrated marked interval reduction in size with only a scant amount of subcentimeter subpleural nodular opacities (axial image 30 series 2). Mild improvement of left upper lobe peribronchovascular nodular opacities. No significant pleural effusion or pneumothorax. The heart is not appear enlarged and there is no pericardial effusion. Atheromatous calcifications of the coronary arteries. No thoracic aortic aneurysm. Similar degree of prominent mediastinal lymph nodes. Similarly prominent bilateral calyces versus renal sinus cysts. Subcentimeter left renal calculi. Renal hypodensities that are too small to characterize. Again seen a presumed renal cysts on the left. Otherwise the visualized upper abdomen is unremarkable. Similar compression deformity of the L1 vertebral body. No acute or grossly suspicious osseous abnormality. Impression: 1. Marked interval improvement of previously noted right upper lobe pleural-based mass with scant remaining subcentimeter subpleural nodular opacities. Interval improvement of left upper lobe peribronchovascular nodular opacities. This suggests an infectious/inflammatory etiology. 2. Otherwise overall similar-appearing of marked diffuse tree-in-bud nodules and scant peribronchovascular ground glass opacities with similar diffuse bronchiectasis with bronchial impaction/bronchial wall thickening most pronounced at the lung bases. These findings are likely postinfectious in etiology. 3. Similar degree of prominent mediastinal lymph nodes. 4. Redemonstration of similar bilateral calyceal prominence versus renal sinus cysts. Finalized by Brianna Cleaning MD on 04/29/2023 8:54 AM Normal [facility] CBC W Auto Differential pane l (Bld)on 02-02-2023 Basophils (Bld) [#/Vol] 0.09 10*3/uL Normal <0.11 [facility] Comment on above: Order Comment: Speci men Type: BLOOD SPECIMEN Ordering Facility: [facility] Address: [address] [place] [address] Performed By: #### 5 7021-8 #### [facility] CLIA [id number] [address] [place] [address] [facility] CLIA [id number] [address] [place] [address] [place] #### [id number] #### [facility] CLIA [id number] [address] [place] [address] [place] Basophils/100 WBC (Bld) 0.4 % Normal [facility] Comment on above: Order Comment: Speci men Type: BLOOD SPECIMEN Ordering Facility: [facility] Address: [address] [place] [address] Performed By: #### 5 7021-8 #### [facility] CLIA [id number] [address] [place] [address] LAB CLIA [id number] [address] [place] [address] [place] #### [id number] #### [facility] CLIA [id number] [address] [place] [address] [place] Eosinophils (Bld) [#/Vol] 0.63 10*3/uL High <0.46 [facility] Comment on above: Order Comment: Speci men Type: BLOOD SPECIMEN Ordering Facility: [facility] Address: [address] [place] [address] Performed By: #### 5 7021-8 #### [facility] CLIA [id number] [address] [place] [address] LAB CLIA [id number] [address] [place] [address] [place] #### [id number] #### [facility] CLIA [id number] [address] [place] [address] [place] Eosinophils/100 WBC (Bld) 2.6 % Normal [facility] Comment on above: Order Comment: Speci men Type: BLOOD SPECIMEN Ordering Facility: [facility] Address: [address] [place] [address] Performed By: #### 5 7021-8 #### [facility] CLIA [id number] [address] [place] [address] LAB CLIA [id number] [address] [place], [place] [id number] [place] #### [id number] #### [facility] CLIA [id number] [address] [place] [address] [place] Erythrocyte distribution width (RBC) [Ratio] 13.2 % Normal 11.5-15.0 [facility] Comment on above: Order Comment: Speci men Type: BLOOD SPECIMEN Ordering Facility: [facility] Address: [address] [place] [address] Performed By: #### 5 7021-8 #### [facility] CLIA [id number] [address] [place] [address] LAB CLIA [id number] [address] [place] [address] [place] #### [id number] #### [facility] CLIA [id number] [address] [place] [address] [place] Hematocrit (Bld) [Volume fraction] 36.3 % Low 39.0-51.0 [facility] Comment on above: Order Comment: Speci men Type: BLOOD SPECIMEN Ordering Facility: [facility] Address: [address] [place] [address] Performed By: #### 5 7021-8 #### [facility] CLIA [id number] [address] LAB CLIA [id number] [address] [place] [address] [place] #### [id number] #### [facility] CLIA [id number] [address] [place] [address] [place] Hemoglobin (Bld) [Mass/Vol] 11.6 g/dL Low 13.0-17.0 [facility] Comment on above: Order Comment: Speci men Type: BLOOD SPECIMEN Ordering Facility: [facility] Address: [address] [place] [address] Performed By: #### 5 7021-8 #### [facility] CLIA [id number] [address] [place] [address] LAB CLIA [id number] [address] [place] [address] [place] #### [id number] #### [facility] CLIA [id number] [address] [place] [address] [place] Immature granulocytes (Bld) [#/Vol] 0.20 10*3/uL High <0.10 [facility] Comment on above: Order Comment: Speci men Type: BLOOD SPECIMEN Ordering Facility: [facility] Address: [address] [place] [address] Performed By: #### 5 7021-8 #### [facility] CLIA [id number] [address] [place] [address] LAB CLIA [id number] [address] [place] [address] [place] #### [id number] #### [facility] CLIA [id number] [address] [place] [address] [place] Immature granulocytes/100 WBC (Bld) 0.8 % Normal [facility] Comment on above: Order Comment: Speci men Type: BLOOD SPECIMEN Ordering Facility: [facility] Address: [address] [facility] [place] [address] Performed By: #### 5 7021-8 #### [facility] CLIA [id number] [address] [place] [address] LAB CLIA [id number] [address] [place] [address] [place] #### [id number] #### [facility] CLIA [id number] [address] [place] [address] [place] Lymphocytes (Bld) [#/Vol] 6.62 10*3/uL High 1.00-4.00 [facility] Comment on above: Order Comment: Speci men Type: BLOOD SPECIMEN Ordering Facility: [facility] Address: [address] [place] [address] Performed By: #### 5 7021-8 #### [facility] CLIA [id number] [address] [place] [address] LAB CLIA [id number] [address] [place] [address] [place] #### [id number] #### [facility] CLIA [id number] [address] [place] [address] [place] Lymphocytes/100 WBC (Bld) 27.1 % Normal [facility] Comment on above: Order Comment: Speci men Type: BLOOD SPECIMEN Ordering Facility: [facility] Address: [address] [place] [address] Performed By: #### 5 7021-8 #### [facility] CLIA [id number] [address] [place] [address] LAB CLIA [id number] [facility] [place] [address] [place] #### [id number] #### [facility] CLIA [id number] [facility] [place] [address] [place] MCH (RBC) [Entitic mass] 29.5 pg Normal 26.0-34.0 [facility] Comment on above: Order Comment: Speci men Type: BLOOD SPECIMEN Ordering Facility: [facility] Address: [address] [place] [address] Performed By: #### 5 7021-8 #### [facility] CLIA [id number] [address] [place] [address] LAB CLIA [id number] [address] [place] [address] [place] #### [id number] #### [facility] CLIA [id number] [address] [place] [id number] [place] MCHC (RBC) [Mass/Vol] 32.0 g/dL Normal 30.5-36.0 [facility] Comment on above: Order Comment: Speci men Type: BLOOD SPECIMEN Ordering Facility: [facility] Address: [address] [place] [address] Performed By: #### 5 7021-8 #### [facility] CLIA [id number] [address] [place] [address] LAB CLIA [id number] [address] [place] [address] [place] #### [id number] #### [facility] CLIA [id number] [address] [place] [address] [place] MCV (RBC) [Entitic vol] 92.4 fL Normal 80.0-100.0 [facility] Comment on above: Order Comment: Speci men Type: BLOOD SPECIMEN Ordering Facility: [facility] Address: [address] [place] [address] Performed By: #### 5 7021-8 #### [facility] CLIA [id number] [address] [place] [address] LAB CLIA [id number] [address] [place] [address] [place] #### [id number] #### [facility] CLIA [id number] [address] [place] [address] [place] Monocytes (Bld) [#/Vol] 2.49 10*3/uL High <0.87 [facility] Comment on above: Order Comment: Speci men Type: BLOOD SPECIMEN Ordering Facility: [facility] Address: [address] [place] [address] Performed By: #### 5 7021-8 #### [facility] CLIA [id number] [address] [place], [place] [id number] [facility] CLIA [id number] [address] [place] [address] [place] #### [id number] #### [facility] CLIA [id number] [address] [place] [id number] [place] Monocytes/100 WBC (Bld) 10.2 % Normal [facility] Comment on above: Order Comment: Speci men Type: BLOOD SPECIMEN Ordering Facility: [facility] Address: [address] [place] [address] Performed By: #### 5 7021-8 #### [facility] CLIA [id number] [address] [place] [address] LAB CLIA [id number] [address] [place] [address] [place] #### [id number] #### [facility] CLIA [id number] [address] [place] [address] [place] Neutrophils (Bld) [#/Vol] 14.40 10*3/uL High 1.45-7.50 [facility] Comment on above: Order Comment: Speci men Type: BLOOD SPECIMEN Ordering Facility: [facility] Address: [address] [place] [address] Performed By: #### 5 7021-8 #### [facility] CLIA [id number] [address] [place] [address] LAB CLIA [id number] [address] [place] [id number] [place] #### [id number] #### [facility] CLIA [id number] [address] [place] [id number] [place] Neutrophils/100 WBC (Bld) 58.9 % Normal [facility] Comment on above: Order Comment: Speci men Type: BLOOD SPECIMEN Ordering Facility: [facility] Address: [address] [place] [address] Performed By: #### 5 7021-8 #### [facility] CLIA [id number] [address] [place] [address] LAB CLIA [id number] [address] [place] [address] [place] #### [id number] #### [facility] CLIA [id number] [address] [place] [address] [place] Platelet mean volume (Bld) [Entitic vol] 10.6 fL Normal 9.0-12.7 [facility] Comment on above: Order Comment: Speci men Type: BLOOD SPECIMEN Ordering Facility: [facility] Address: [address] [place] [address] Performed By: #### 5 7021-8 #### [facility] CLIA [id number] [address] [place] [address] LAB CLIA [id number] [address] [place] [address] [place] #### [id number] #### [facility] CLIA [id number] [address] [place] [address] [place] Platelets (Bld) [#/Vol] 222 10*3/uL Normal 150-400 [facility] Comment on above: Order Comment: Speci men Type: BLOOD SPECIMEN Ordering Facility: [facility] Address: [address] [place] [address] Performed By: #### 5 7021-8 #### [facility] CLIA [id number] [address] [place] [address] LAB CLIA [id number] [address] [place] [address] [place] #### [id number] #### [facility] CLIA [id number] [address] [place] [address] [place] RBC (Bld) [#/Vol] 3.93 10*6/uL Low 4.20-6.00 [facility] Comment on above: Order Comment: Speci men Type: BLOOD SPECIMEN Ordering Facility: [facility] Address: [address] [place] [address] Performed By: #### 5 7021-8 #### [facility] CLIA [id number] [address] [place] [address] LAB CLIA [id number] [address] [place] [address] [place] #### [id number] #### [facility] CLIA [id number] [address] [place] [address] [place] WBC (Bld) [#/Vol] 24.43 10*3/uL High 3.70-11.00 [facility] Comment on above: Order Comment: Speci men Type: BLOOD SPECIMEN Ordering Facility: [facility] Address: [place] [address] Performed By: #### 5 7021-8 #### [facility] CLIA [id number] [address] [place] [address] LAB CLIA [id number] [address] [place] [address] [place] #### [id number] #### [facility] CLIA [id number] [address] [place] [address] [place] CNOVSPon 02-02-2023 CNOVSP Visit (SP) Office ([place]) ----- RASHAD PHIPPS ([id number]) 1940 M Date Time Provider Department 02/02/23 3:30 PM POLI CAMBPELL During your visit today, we recorded the following information about you: Temperature Pulse Respiration Blood pressure 97.3 degrees 73/minute 18/minute 119/67 Weight Height 68.8 kg 1.803 m Poli Campbell MD 02/02/2023 4:25 PM Signed PATIENT NAME: Rashad Phipps CLINIC NO.: [id number] ATTENDING PHYSICIAN: Poli Campbell MD DATE OF SERVICE: February 02, [address] Blaise Marie, thank you for referring Mr Rashad Phipps for an opinion regarding Possible CLL. 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 Nava as well as infectious disease, history of atrial fibrillation status post catheter ablation and basal cell skin cancer referred here for possible diagnosis of CLL. Patient does have chronic fatigue. Otherwise denies any increased lymph gland swelling. Denies any fever chills night sweats or abdominal pain. Patient states that his infections have significantly decreased since being on subcutaneous IVIG infusions under the direction of immunology. Due to persistent elevation in his white blood cell count patient underwent a flow cytometry which demonstrated a monoclonal B-cell population expressing CD19, dim CD20, light chain kappa restricted, CD23 and CD5 positive consistent with the phenotype of B-cell CLL. Of note the patient mostly has neutrophilia and lymphocytosis. Current Outpatient Medications Medication Sig immun glob G,IgG,/pro/IgA 0-50 (HIZENTRA SUBCUTANEOUS) Inject subcutaneously. acetaminophen (TYLENOL) 500 mg tablet Take 500 mg by mouth every 6 hours as needed. atorvastatin (LIPITOR) 20 mg tablet Take 20 mg by mouth. fluticasone-vilanterol (BREO ELLIPTA) 200-25 mcg/dose inhaler INHALE 1 PUFF INTO THE LUNGS EVERY DAY Cholecalciferol, Vitamin D3, 50 mcg (2,000 unit) cap Take 2,000 Units by mouth. famotidine (PEPCID) 40 mg tablet Take 1 tablet by mouth once daily. levothyroxine (SYNTHROID) 75 mcg tablet Take 1 tablet by mouth once daily. rivaroxaban (XARELTO) 20 mg tablet Take 20 mg by mouth. sodium chloride 0.9 % nebulizer solution INHALE 1 VIAL BY MOUTH 3 TIMES DAILY finasteride (PROSCAR) 5 mg tablet Take 1 tablet by mouth once daily. (Patient not taking: Reported on 02/02/2023) No current facility-administered medications for this visit. ALLERGIES Allergen Reactions Apixaban Itching Other reaction(s): Rash, itching Other reaction(s): Rash, itching Edoxaban Unknown Other reaction(s): Rash, itching Other reaction(s): Rash, itching Fish Containing Pro* Unknown Levofloxacin Unknown Penicillins Unknown Rivaroxaban Unknown Sulfa (Sulfonamide * Itching PAST MEDICAL HISTORY Diagnosis Date Bronchiectasis (HCC) Chronic renal impairment Mixed hyperlipidemia Secondary hypothyroidism History reviewed. No pertinent surgical history. History reviewed. No pertinent family history. Social History Tobacco Use Smoking status: Former Types: Cigarettes Passive exposure: Past Smokeless tobacco: Never Substance Use Topics Alcohol use: Not Currently Drug use: Never REVIEW OF SYSTEMS GENERAL: No weight loss, malaise or fevers. No night sweats. HEENT: Negative for headaches, No changes in hearing or vision, no nose bleeds or other nasal problems. RESPIRATORY: Negative for cough, wheezing and shortness of breath CARDIOVASCULAR: Negative for chest pain, leg swelling and palpitations GI: Negative for abdominal discomfort, blood in stools or black stools and change in bowel habits : Negative for dysuria, frequency and incontinence MUSCULOSKELETAL: Negative for joint pain or swelling, back pain, and muscle pain. SKIN: Negative for lesions, rash, and itching. HEMATOLOGY/LYMPHOLOGY Negative for prolonged bleeding, bruising easily, and swollen nodes. NEURO: Negative for numbness or tingling of hands/feet. No weakness. PHYSICAL EXAMINATION: BP 119/67 Pulse 73 Temp 36.3 ?C (97.3 ?F) (Temporal) Resp 18 Ht 180.3 cm (5' 11 ) Wt 68.8 kg (151 lb 9.6 oz) SpO2 97% BMI 21.14 kg/m? Wt 68.8 kg (151 lb 9.6 oz) BMI 21.14 kg/m2 Last 3 Encounter Wt Readings: Date: Wt: 02/02/2023 68.8 kg (151 lb 9.6 oz) General appearance:ECOG PERFORMANCE STATUS: 1- Restricted in physically strenuous activity. Carries out light duty. Patient in NAD. Skin: Skin color, texture, turgor normal. No rashes or lesions. Eyes: Anicteric sclera. Pupils are equally round and reactive to light. Extraocular movements are intact. Breast: (more content not included)... Normal [facility] Comprehensive metabolic 2000 panelon 02-02-2023 Albumin [Mass/Vol] 3.9 g/dL Normal 3.9-4.9 [facility] Comment on above: Order Comment: Speci men Type: BLOOD SPECIMEN Ordering Facility: [facility] Address: [address] [place] [address] Performed By: #### 2 4323-8, 2531-0 #### [facility] CLIA [id number] [address] [place] [address] ALP [Catalytic activity/Vol] 107 U/L Normal 38-113 [facility] Comment on above: Order Comment: Speci men Type: BLOOD SPECIMEN Ordering Facility: [facility] Address: [address] [place] [address] Performed By: #### 2 4328, 2531-0 #### [facility] CLIA [id number] [address] [place] [address] ALT [Catalytic activity/Vol] 8 U/L Low 10-54 [facility] Comment on above: Order Comment: Speci men Type: BLOOD SPECIMEN Ordering Facility: [facility] Address: [address] [place] [address] Performed By: #### 2 4328, 2531-0 #### [facility] CLIA [id number] [address] [place] [address] Anion gap [Moles/Vol] 5 mmol/L Low 9-18 [facility] Comment on above: Order Comment: Speci men Type: BLOOD SPECIMEN Ordering Facility: [facility] Address: [address] [place] [address] Performed By: #### 2 43238, 2531-0 #### [facility] CLIA [id number] [address] [place] [address] AST [Catalytic activity/Vol] 14 U/L Normal 14-40 [facility] Comment on above: Order Comment: Speci men Type: BLOOD SPECIMEN Ordering Facility: [facility] Address: [address] [place] [address] Performed By: #### 2 4323-8, 2-0 #### [facility] CLIA [id number] [address] [place] [address] Bilirubin [Mass/Vol] 0.5 mg/dL Normal 0.2-1.3 [facility] Comment on above: Order Comment: Speci men Type: BLOOD SPECIMEN Ordering Facility: [facility] Address: [address] [place] [address] Performed By: #### 2 432-8, 2-0 #### [facility] CLIA [id number] [address] [place] [address]683 Calcium [Mass/Vol] 9.0 mg/dL Normal 8.5-10.2 [facility] Comment on above: Order Comment: Speci men Type: BLOOD SPECIMEN Ordering Facility: [facility] Address: [address] [place] [address] Performed By: #### 2 4323-8, 2531-0 #### [facility] CLIA [id number] [address] [place] [address]272 Chloride [Moles/Vol] 97 mmol/L Normal 97-105 [facility] Comment on above: Order Comment: Speci men Type: BLOOD SPECIMEN Ordering Facility: [facility] Address: [address] [place] [address] Performed By: #### 2 4323-8, 2-0 #### [facility] CLIA [id number] [address] [place] [address] 69163 CO2 [Moles/Vol] 28 mmol/L Normal 22-30 [facility] Comment on above: Order Comment: Speci men Type: BLOOD SPECIMEN Ordering Facility: [facility] Address: [address] [place] [address] [address] Performed By: #### 2 4323-8, 2532-0 #### [facility] CLIA [id number] [address] [place] [address]704 Creatinine [Mass/Vol] 1.26 mg/dL High 0.73-1.22 [facility] Comment on above: Order Comment: Specmalik men Type: BLOOD SPECIMEN Ordering Facility: [facility] Address: [address] [place] [id number] Performed By: #### 2 4323-8, 2532-0 #### [facility] CLIA [id number] [address] [place] [address] Creatinine and Glomerular filtration rate.predicted panel (S/P/Bld) 56 mL/min/1.73m??? Low >=60 [facility] Comment on above: Order Comment: Kevin duvall Type: BLOOD SPECIMEN Ordering Facility: [facility] Address: [address] [place] [address] Result Comment: Doug mated Glomerular Filtration Rate (eGFR) is calculated using the 2020 CKD-EPI creatinine equation. This equation utilizes serum creatinine, sex, and age as parameters. The creatinine assay has traceable calibration to isotope dilution-mass spectrometry. Refer to KDIGO guidelines for clinical interpretation. In patients with unstable renal function, e.g. those with acute kidney injury, the eGFR may not accurately reflect actual GFR. Performed By: #### 2 4323-8, 2531-0 #### [facility] CLIA [id number] [address] [place] [address]104 Glucose [Mass/Vol] 99 mg/dL Normal 74-99 [facility] Comment on above: Order Comment: Speci men Type: BLOOD SPECIMEN Ordering Facility: [facility] Address: [address] [place] [id number] Result Comment: The [place] Diabetes [employer] (ADA) provides guidance for cutoff values for fasting glucose and random glucose. The ADA defines fasting as no caloric intake for at least 8 hours. Fasting plasma glucose results between 100 to 125 mg/dL indicate increased risk for diabetes (prediabetes). Fasting plasma glucose results greater than or equal to 126 mg/dL meet the criteria for diagnosis of diabetes. In the absence of unequivocal hyperglycemia, results should be confirmed by repeat testing. In a patient with classic symptoms of hyperglycemia or hyperglycemic crisis, random plasma glucose results greater than or equal to 200 mg/dL meet the criteria for diagnosis of diabetes. Reference: Standards of Medical Care in Diabetes 2016, [place] [employer]. Diabetes Care. 2016.39(Suppl 1). Performed By: #### 2 4323-8, 2531-0 #### [facility] CLIA [id number] [address] [place] [address] Potassium [Moles/Vol] 4.1 mmol/L Normal 3.7-5.1 [facility] Comment on above: Order Comment: Speci men Type: BLOOD SPECIMEN Ordering Facility: [facility] Address: [address] [place] [address] Performed By: #### 2 43238, 2531-0 #### [facility] CLIA [id number] [address] [place] [address]46 Protein [Mass/Vol] 6.4 g/dL Normal 6.3-8.0 [facility] Comment on above: Order Comment: Speci men Type: BLOOD SPECIMEN Ordering Facility: [facility] Address: [address] [place] [address] Performed By: #### 2 4328, 2531-0 #### [facility] CLIA [id number] [address] [place] [address]08 Sodium [Moles/Vol] 130 mmol/L Low 136-144 [facility] Comment on above: Order Comment: Speci men Type: BLOOD SPECIMEN Ordering Facility: [facility] Address: [address] [place] [address] Performed By: #### 2 4328, 2531-0 #### [facility] CLIA [id number] [address] [place] [address]43 Urea nitrogen [Mass/Vol] 20 mg/dL Normal 9-24 [facility] Comment on above: Order Comment: Speci men Type: BLOOD SPECIMEN Ordering Facility: [facility] Address: [address] [place] [address] Performed By: #### 2 4323-8, 2532-0 #### [facility] CLIA [id number] [address] [place] [address]8918 Albumin [Mass/Vol] 3.9 g/dL 3.9 - 4.9 g/dL [facility] ALP [Catalytic activity/Vol] 107 U/L 38 - 113 U/L [facility] ALT [Catalytic activity/Vol] 8 U/L Low 10 - 54 U/L [facility] Anion gap [Moles/Vol] 5 mmol/L Low 9 - 18 mmol/L [facility] AST [Catalytic activity/Vol] 14 U/L 14 - 40 U/L [facility] Bilirubin [Mass/Vol] 0.5 mg/dL 0.2 - 1.3 mg/dL [facility] Calcium [Mass/Vol] 9.0 mg/dL 8.5 - 10. 2 mg/dL [facility] Chloride [Moles/Vol] 97 mmol/L 97 - 105 mmol/L [facility] CO2 [Moles/Vol] 28 mmol/L 22 - 30 mmol/L [facility] Creatinine [Mass/Vol] 1.26 mg/dL High 0.73 - 1.22 mg/dL [facility] Estimated Glomerular Filtration Rate 56 mL/min/1.73m Low >=60 mL/min/1.73m [facility] Glucose [Mass/Vol] 99 mg/dL 74 - 99 mg/dL [facility] Potassium [Moles/Vol] 4.1 mmol/L 3.7 - 5.1 mmol/L [facility] Protein [Mass/Vol] 6.4 g/dL 6.3 - 8.0 g/dL [facility] Sodium [Moles/Vol] 130 mmol/L Low 136 - 144 mmol/L [facility] Urea nitrogen [Mass/Vol] 20 mg/dL 9 - 24 mg/dL [facility] IMMUNOFIXATION SCREEN, SERUM on 02-02-2023 MPA RESULT No M protein is identified. Normal No M protein is identified. [facility] Comment on above: Order Comment: Speci men Type: BLOOD SPECIMEN Ordering Facility: [facility] Address: [address] [place] [address] Performed By: #### I FES #### [facility] CLIA [id number] [address] [place] [address] [place] STAFF REVIEW (MPA) Reviewed by Betty Vallejo M.D. Normal [facility] Comment on above: Order Comment: Speci men Type: BLOOD SPECIMEN Ordering Facility: [facility] Address: [address] [place] [address] Performed By: #### I FES #### [facility] CLIA [id number] [address] [place] [address] [place] IMMUNOGLOBULINS GAMon 2022 IgA [Mass/Vol] 117 mg/dL Normal 70-400 [facility] Comment on above: Order Comment: Speci men Type: BLOOD SPECIMEN Ordering Facility: [facility] Address: [address] [place] [address] Performed By: #### S ERIMM #### [facility] CLIA [id number] [address] [place] [address] [place] IgG [Mass/Vol] 823 mg/dL Normal 700-1600 [facility] Comment on above: Order Comment: Speci men Type: BLOOD SPECIMEN Ordering Facility: [facility] Address: [address] [place] [address] Performed By: #### S ERIMM #### [facility] CLIA [id number] [address] [place] [address] [place] IgM [Mass/Vol] 22 mg/dL Low 40-230 [facility] Comment on above: Order Comment: Speci men Type: BLOOD SPECIMEN Ordering Facility: [facility] Address: [address] [place] [address] Performed By: #### S ERIMM #### [facility] CLIA [id number] [address] [place] [address] [place] KAPPA/GUILLEN,FREE,SERon 2022 Immunoglobulin light chains.kappa.free (S) [Mass/Vol] 24.9 mg/L High 3.3-19.4 [facility] Comment on above: Order Comment: Speci jadiel Type: BLOOD SPECIMEN Ordering Facility: [facility] Address: [address] [place] [address] Result Comment: Rare ly, increased serum free light chains levels may not be detected or accurately quantified due to prozone phenomenon or in high viscosity samples using this immunoturbidimetric assay. Correlation with other laboratory results and clinical findings is recommended. The [place] Free Light Chain was performed using the Binding Site Optilite immunoturbidimetric method. Result obtained with different assay methods or kits cannot be used interchangeably. Performed By: #### K LFRS #### [facility] CLIA [id number] [address] [place] [address] [place] Immunoglobulin light chains.kappa/Immun oglobulin light chains.lambda (S) [Mass ratio] 1.78 High 0.26-1.65 [facility] Comment on above: Order Comment: Debrai jadiel Type: BLOOD SPECIMEN Ordering Facility: [facility] Address: [address] [place] [address] Performed By: #### K LFRS #### [facility] CLIA [id number] [address] [place] [address] [place] Immunoglobulin light chains.lambda.free [Mass/Vol] 14.0 mg/L Normal 5.7-26.3 [facility] Comment on above: Order Comment: Debramalik duvall Type: BLOOD SPECIMEN Ordering Facility: [facility] Address: [address] [place] [address] Result Comment: Rare ly, increased serum free light chains levels may not be detected or accurately quantified due to prozone phenomenon or in high viscosity samples using this immunoturbidimetric assay. Correlation with other laboratory results and clinical findings is recommended. The L[place] Free Light Chain was performed using the Binding Site Optilite immunoturbidimetric method. Result obtained with different assay methods or kits cannot be used interchangeably. Performed By: #### K LFRS #### [facility] CLIA [id number] [address] [place] [address] [place] LD LACTATE DEHYDROon LDH [Catalytic activity/Vol] 124 U/L Low 135 - 225 U/L [facility] LDH SerPl-cCncon 02-02-2023 LDH [Catalytic activity/Vol] 124 U/L Low 135-225 [facility] Comment on above: Order Comment: Speci men Type: BLOOD SPECIMEN Ordering Facility: [facility] Address: [address] [place] [address] Performed By: #### 2 4323-8, 2532-0 #### [facility] CLIA [id number] [address] [place] [address] PROTEIN ELECTROPHORESIS SERU M (P)on 02-02-2023 Albumin [Mass/Vol] 3.32 g/dL Low 3.43-5.41 [facility] Comment on above: Order Comment: Speci men Type: BLOOD SPECIMEN Ordering Facility: [facility] Address: [address] [place] [address] Performed By: #### L [id number] #### [facility] CLIA [id number] [address] [place] [address] [place] Alpha 1 globulin Elph [Mass/Vol] 0.46 g/dL High 0.18-0.43 [facility] Comment on above: Order Comment: Speci men Type: BLOOD SPECIMEN Ordering Facility: [facility] Address: [address] [place] [address] Performed By: #### L [id number] #### [facility] CLIA [id number] [address] [place] [address] [place] Alpha 2 globulin Elph [Mass/Vol] 0.72 g/dL Normal 0.42-0.98 [facility] Comment on above: Order Comment: Speci men Type: BLOOD SPECIMEN Ordering Facility: [facility] Address: [address] [place] [address] Performed By: #### L [id number] #### [facility] CLIA [id number] [address] [place] [address] [place] Beta globulin Elph [Mass/Vol] 0.62 g/dL Normal 0.61-1.17 [facility] Comment on above: Order Comment: Speci men Type: BLOOD SPECIMEN Ordering Facility: [facility] Address: [address] [place] [address] Performed By: #### L [id number] #### [facility] CLIA [id number] [address] [place] [address] [place] Gamma globulin Elph [Mass/Vol] 0.68 g/dL Normal 0.53-1.51 [facility] Comment on above: Order Comment: Speci men Type: BLOOD SPECIMEN Ordering Facility: [facility] Address: [address] [place] [address] Performed By: #### L [id number] #### [facility] CLIA [id number] [address] [place] [address] [place] M-PROTEIN LOCATION Normal [facility] Comment on above: Order Comment: Speci men Type: BLOOD SPECIMEN Ordering Facility: [facility] Address: [address] [place] [address] Result Comment: Not Applicable. Performed By: #### L [id number] #### [facility] CLIA [id number] [address] [place] [address] [place] Protein Fractions [Interp] No definitive M protein is identified on protein electrophoresis. Normal No definitive M protein is identified on protein electrophore sis. [facility] Comment on above: Order Comment: Speci men Type: BLOOD SPECIMEN Ordering Facility: [facility] Address: [address] [place] [address] Performed By: #### L [id number] #### [facility] CLIA [id number] [address] [place] [address] [place] Protein.monoclonal Elph [Mass/Vol] 0.00 g/dL Normal <=0.00 [facility] Comment on above: Order Comment: Speci men Type: BLOOD SPECIMEN Ordering Facility: [facility] Address: [address] [place] [address] Performed By: #### L [id number] #### [facility] CLIA [id number] [facility] [place] [address] [place] SPE STAFF REVIEW Reviewed by Betty Vallejo M.D. Normal [facility] Comment on above: Order Comment: Speci men Type: BLOOD SPECIMEN Ordering Facility: [facility] Address: [address] [place] [address] Performed By: #### L [id number] #### [facility] CLIA [id number] [address] [place] [address] [place] Prot SerPl-mCncon 02-02-2023 Protein [Mass/Vol] 5.8 g/dL Low 6.3-8.0 [facility] Comment on above: Order Comment: Speci men Type: BLOOD SPECIMEN Ordering Facility: [facility] Address: [address] [place] [address] Performed By: #### 2 885-2 #### [facility] CLIA [id number] [address] [place] [address] [place] RBC MORPHOLOGYon 02-02-2023 Platelets Estimate (Bld) [#/Vol] Adequate Normal [facility] Comment on above: Order Comment: Speci men Type: BLOOD SPECIMENOrdering Facility: [facility] Address: [address] [place] [address] Performed By: #### 5 7021-8 ####[facility] [id number] [place], [place] [id number] [id number] [place] [address] [place]#### [id number] ####[facility] [id number] [place] [address] [place] RBC morphology finding Nom (Bld) Reviewed: unremarkable Normal [facility] Comment on above: Order Comment: Speci men Type: BLOOD SPECIMENOrdering Facility: [facility] Address: [address] [facility] [place] [address] Performed By: #### 5 7021-8 ####[facility] [id number] [place], [place] [id number] [facility] LABCLIA [id number] [place] [id number] [facility]#### [id number] ####[facility] [id number] [place] [id number] [facility] Office Visiton 11-12-2022 Follow-up visit Diagnoses/Problems 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) Asthma, unspecified asthma severity, unspecified whether complicated, unspecified whether persistent (493.90) (J45.909) Chronic sinusitis (473.9) (J32.9) Bronchiectasis (494.0) (J47.9) CKD (chronic kidney disease) (585.9) (N18.9) Orders Asthma, unspecified asthma severity, unspecified whether complicated, unspecified whether persistent Asthma Control Flowsheet; Status:Complete; Done: [id number] Bronchiectasis, CVID (common variable immunodeficiency) Immunoglobulin G Level, Serum; Status:Active; Requested for:[id number]; Chronic sinusitis Start: Nasacort Allergy 24HR 55 MCG/ACT Nasal Aerosol; INSTILL 2 SPRAY Daily CKD (chronic kidney disease) Comprehensive Metabolic Panel; Status:Active; Requested for:[id number]; Patient Discussion/Summary Continue Hizentra infusions. Have IgG level rechecked in January 2023. Continue Breo. Use albuterol as needed. Continue saline neb solution 0.9 3x a day and flutter valve by Dr. Solares. I recommend followup with Dr. Quiroz, ID, at least yearly. Change Flonase to Nasacort AQ two sprays each nostril once a day. To increase the efficacy of your nasal spray, be sure to look down while using it. [place] slightly away from the direction of your nasal septum (the bone in the middle of your nose) and only sniff after you have sprayed- avoid spraying and sniffing at the same time, or else a lot of spray will go down your throat. Obtain blood work to evaluate renal function. We will call you with results and further recommendations. Follow up virtually February 2023 or sooner if symptoms worsen prior. By signing my name below, I, Jun Pratt, attest that this documentation has been prepared under the direction and in the presence of Sweetie Burr MD. All medical record entries made by the Perezibe were at my direction and personally dictated by me. I have reviewed the chart and agree that the record accurately reflects my personal performance of the history, physical exam, discussion and plan. Provider Impressions 1. CVID - Chronic, stable. Hizentra 7 gram weekly infusions are going well. Last IgG level 05/07/2022 was normal. Continue Hizentra infusions. Have IgG level rechecked in January 2023. 2. Asthma - Chronic, controlled. ACT is 22. Exam today is significant for wheeze in all 4 quadrants, more in upper lobes. Continue Breo. Use albuterol as needed. 3. Bronchiectasis - Chronic, controlled. C/O increasing phlegm, worse with humid days. He is compliant with his neb and flutter valve. Dr. Quiroz stopped tobramycin due to resistance to pseudomonas and risk of further kidney damage Continue saline neb solution 0.9 3x a day and flutter valve per Dr. Solares. I recommend followup with Dr. Quiroz, ID, at least yearly. 4. Rhinitis - New problem, controlled. Allergy test was positive for weeds and dust mite. He uses Flonase daily. He C/O recurrent nosebleeds and concerned regarding increase in Xarelto to 20 mg daily. Change Flonase to Nasacort AQ two sprays each nostril once a day. Proper use reviewed and patient verbalized understanding. 5. CKD - Resolved, per patient, after stopping tobramycin. Labs to evaluate renal function. We will call you with results and further recommendations. Follow up virtually February 2023 or sooner if symptoms worsen prior. Moderate risk of disease progression exists. Chief Complaint Followup visit for CVID and asthma History of Present Illness Patient is accompanied by his . Since last visit, 08/06/2022, patient states he had bronchoscopy Apr [address] Solares with mucus buildup in his lungs, which persists. He feels it is accumulating more daily and is worse on humid days. He will only push-mow his yard when humidity is below 50. About a month ago, he was mowing and had to stop 3 times but admits he was not aware of the humidity beforehand. He rested and was able to catch his breath. His states he has been compliant with nebulizer with salt water and flutter 3x a day. He does cough up sputum intermittently that is thicker in the mornings. He has used a vest in the past but did not like it. Patient states when he discontinued tobramycin, his renal levels normalized and his CKD resolved, so he does not have followup scheduled He continues Xarelto 20 per classified ad taker but questions if this raises a bleeding risk. He is concerned due to intermittent nosebleeds. He uses Flonase daily. Patient has followup with Dr. Solares in Dec 2022. Patient states weekly infusions are going well and he denies any illnesses or infections. Patient admits to 15 lb weight loss after bronchoscopy and has not gained it back. Patient's notes he has a decreased appetite and often does not know what he wants to eat. Patient does not have an appointment scheduled with Dr. Quiroz, ID, yet. Review of Systems See attached Review of Systems in HPI. Active Problems Asthma (more content not included)... 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 Increase to 7 gram. Continue Breo. Use albuterol as needed. Continue saline neb solution 0.9 3x a day and flutter valve per Dr. Solares. Have blood work to evaluate IgG level and respiratory allergy profile. We will call you with results and further recommendations. Trial Astepro nasal spray as needed. Follow up 11/19/2022 at 10:30 am or sooner if symptoms worsen prior. By signing my name below, I, Perez Prattibe, attest that this documentation has been prepared under the direction and in the presence of Sweetie Burr MD. All medical record entries made by the Scribe were at my direction and personally dictated by me. I have reviewed the chart and agree that the record accurately reflects my personal performance of the history, physical exam, discussion and plan. Provider Impressions This visit was completed via telephone.. All issues as below were discussed and addressed. If it was felt that the patient should be evaluated in clinic then they were directed there. Time spent talking with patient: 45 minutes. Greater than 50% of that was review of health conditions, health promotion, risk reducing discussion. 1. CVID - Chronic, stable. Hizentra 7 gram weekly infusions. Last IgG level 05/07/2022 was normal. states dose was never increased as was supposed to be in Apr 2022. Continue Hizentra infusions. Increase to 7 gram. Have IgG level rechecked with next blood draw. 2. Asthma - Chronic, controlled. ACT is 25. Continue Breo. Use albuterol as needed. 3. Bronchiectasis - Chronic, controlled. Dr. Quiroz stopped tobramycin due to resistance to pseudomonas. Cough is improving compared to prior. Continue saline neb solution 0.9 3x a day and flutter valve by Dr. Solares. 4. Rhinitis - New problem, uncontrolled. Allergies resolved in the past but C/O sneezing and rhinorrhea. Wonders if he is developing allergies. He will have a respiratory allergy profile. We will call you with results and further recommendations. Trial Astepro nasal spray as needed. Follow up 11/19/2022 at 10:30 am or sooner if symptoms worsen prior. Moderate risk of disease progression exists. Chief Complaint A telephone visit (audio only) between the patient (at the originating site) and the provider (at the distant site) was utilized to provide this telehealth service. Verbal consent was requested and obtained from RASHAD PHIPPS on this date, 08/06/2022 10:15 AM , for a telehealth visit. Followup visit for CVID History of Present Illness Patient is at home and accompanied by his . Since last visit, 05/07/2022, patient states he feels good and has persistent cough but much milder than 3 months ago. He saw Dr. Quiroz 06/10/2022. Dr. Quiroz stopped tobramycin because it was resistant to the pseudomonas, per patient. Patient is asking if we received results of the bronchoscopy done by Dr. Solares in Apr 2022. Patient states he had repeat CBC 2 weeks later and white count dropped by 5 points so no other workup was required. He was given a 10 day course of Levaquin in May [address] Quiroz. states patient was prescribed regular saline neb solution 0.9 3x a day and flutter valve have per Dr. Solares. Patient also had a fall in May 2022 with a contusion. It was suspected this may have triggered his elevated white count. His ecchymosis has resolved but he has a persistent bicep lump that is decreasing. Patient reports hay fever and asthma Hx as a child, which affected him during ragweed season and when in his barn with animal/hay exposure. He had severe reaction to ragweed and Sx resolved since. He has been sneezing and experiencing rhinorrhea more attributed to the tree pollen and wonders if he may be redeveloping allergies. is asking if he should start fluticasone. He continues Hizentra infusions from [facility], which are going well with no SE. His states his dose was never increased in Apr 2022. Review of Systems See attached Review of Systems in HPI. Active Problems Asthma, unspecified asthma severity, unspecified whether complicated, unspecified whether persistent (493.90) (J45.909) Bronchiectasis (494.0) (J47.9) Chronic sinusitis (473.9) (J32.9) CKD (chronic kidney disease) (585.9) (N18.9) 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) Former smoker (V15.82) (Z87.891) (more content not included)... Normal [employer] FAST SMEAR AND CXon Acid Fast Culture Negative Normal [facility] Comment on above: Result Comment: No a marshall fast bacilli isolated after 6 weeks. Performed By: #### A FB #### [facility] [address] [place] [address] [address] Nadeen Broderick Acid Fast Smear Negative Normal [facility] Comment on above: Performed By: #### A FB #### [facility] [address] [place], [place] [address] Dr. Nadeen Broderick [employer] Specimen Processing Concentration Normal [facility] Comment on above: Performed By: #### A FB #### [facility] [address] [place] [address] Dr. Nadeen Broderick Chart Updateon 06-10-2022 Chart Update Chart Update 06/10/2022 update Unscheduled follow-up See recent chart updates. I have been evaluating patient for recent increase leukocytosis to approximately 34,000 I repeated CBC on 05/21/2022 and it measured 22.7 which was a slight improvement See prior chart updates Overall I think the patient's regular white blood cell count baseline is probably in the middle teens. TODAY, I called patient to follow-up on CBC improvement. Patient continues to use flutter valve and aerosolized normal saline to help mobilize additional secretions. I reviewed sputum culture from 05/21/2022 which showed normal throat bryson and 3 colonies of mucoid Pseudomonas resistant to levofloxacin and tobramycin but still fully susceptible to other agents like Zosyn, ceftazidime, and cefepime. This isolate was also intermediately susceptible to COLISTIN, a potential alternative aerosol antibiotic. Currently patient has stable respiratory status. We recently gave him a 10-day course of oral levofloxacin and although some of the Pseudomonas in the sputum was resistant, patient had a clinical response and reports improvement. The and the patient noticed less coughing after completing a brief course of levofloxacin which may have reduced some of the nonresistant mixed respiratory bryson. Also, today patient revealed that he had fallen on 05/15/2022 when he tripped on a curb. Patient landed on his left side and broke his fall with his left arm/hand. He also struck his left knee which hurt afterword but did not cause subsequent difficulty. However several days later the patient noticed swelling and a bruise in the left biceps area. This was a rather large area of several centimeters. Patient had some associated swelling but no gross pain. The bruising seem to improve over several days. OF NOTE, patient is on anticoagulant, Xarelto. THUS, patient likely had subcutaneous bleeding/possible intramuscular bleeding. Initial injury appeared to resolve however on 06/08/2022 patient was getting up out of the lazy boy recliner and felt a pain and snap in the left arm. This area is now again ecchymotic. Patient going to see PCP today 06/10/2022 Wonder if patient had tendon rupture, soft tissue injury, or even a fracture. The initial leukocytosis and of April preceded the initial fall on 05/15/2022. Slow recovery and the white blood cell count may reflect secondary process, subcutaneous or intramuscular bleeding. 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 Nadeen Broderick Fungus Stain Final report Normal [facility] Comment on above: Performed By: #### C XFUN #### [facility] [address] [place], [place] [address] Dr. Nadeen Broderick Result 1 Comment Normal [facility] Comment on above: Result Comment: LAILA/ Calcofluor preparation: no fungus observed. Performed By: #### C XFUN #### [facility] [address] [place] [address] Dr. Nadeen Broderick Result Comment: No y east or mold isolated after 4 weeks. RESPIRATORY CF CULTURE,BACTE RIAL.on 05-21-2022 RESPIRATORY CF CULTURE,BACTERIAL. PATIENT: RASHAD PHIPPS LOCATION: [facility] BILL#: [id number] : 36 AGE: SEX: M ORDERED BY: RODRIGUEZ QUIROZ SOURCE: SPUTUM COLLECTED: 05/21/22 11:00 ANTIBIOTICS AT [facility].: RECEIVED : 05/21/22 18:13 SITE: Supplemental Report R E S U L T S RESPIRATORY CF CULTURE,BACTERIAL. FINAL 05/31/22 08:13 1+ NORMAL THROAT BRYSON. THIS REPORT CONTAINS ADDITIONAL INFORMATION NOT INCLUDED IN PREVIOUS FINAL REPORT. ADDITIONAL SUSCEPTIBILITIES REQUESTED ISOLATE1 : Pseudomonas aeruginosa, mucoid 3COLONY Organism P aer, mucoid Antibiotic KB INTRP PHILOMENA INTRP Piperc/Tazobact S Aztreonam S Ceftazidime S Cefepime S Meropenem S Tobramycin R Ciprofloxacin I Colistin I Trimeth/Sulfa R Amikacin R Levofloxacin >32 R ___ S=SUSCEPTIBLE I=INTERMEDIATE R=RESISTANT SDD=SUSCEPTIBLE DOSE DEPENDENT NS=NONSUSCEPTIBLE X=REPORTED IN ERROR ___ Normal [facility] Comment on above: Performed By: #### R ESCF #### [facility] [address] [place] [address] Chart Updateon 05-19-2022 Chart Update Chart Update 05/19/2022 update 05/17/2022 white blood cell count was 27.7 This is improved but still elevated 05/07/2022 white blood cell count was 34.4 06/26/2021 white blood cell count 14.7 04/29/2017 white blood cell count 16 2016 white blood cell count approximately 9 Patient has been off aerosolized tobramycin since several days before 05/03/2022 bronchoscopy 05/07/2022 WBC of 34.4 was initially attributed to post bronchoscopy 05/17/2022 WBC remains slightly elevated and unclear about what recent baseline is. See above review. Has no additional symptoms Off aerosolized tobramycin patient has had additional cough and mucus. Has increased pulmonary toileting significantly. Using 3 times daily normal saline aerosols and flutter valve to mobilize secretions Patient has had no fever, hemoptysis, chest pain, additional shortness of breath or dyspnea Leukocytosis may be from additional bacterial growth in the lung and mucous plugging although patient relatively stable but with some additional cough. In March 2022 patient had additional cough and felt that he was having a flare so I treated with a 10-day course of levofloxacin commencing 03/19/2022. Patient reports that this helped tremendously. I suspect leukocytosis reflects ongoing inflammation and sequestration of bacteria in the lung. Uncertain of true baseline at this time Discussed options 1. Repeat blood count off antibiotics 2. Obtain sputum (planned for 05/21/2022) and treat empirically with follow-up CBC and 7 to 10 days Recommended: 1. Obtain sputum at home and submit to lab on 05/21/2022. Requisition sent to laboratory at [facility]. Patient will collect sputum today prior to starting levofloxacin 2. Levofloxacin 500 mg daily x10 days. Prescription sent electronically 3. Repeat CBC plus differential and basic metabolic panel on 05/31/2022. Order placed in computer. [facility] LAB phone [phone]) LAB FAX for [facility] ([phone]) LAB number [phone] 4. Phone follow-up in 1 week or earlier if necessary 5. Phone follow-up with culture results in 7-10 days Signatures Electronically signed by : Rodriguez Quiroz MD; May 19 2022 10:30AM EST (Author) Normal [facility] [employer] Chart Updateon 05-18-2022 Chart Update Orders Bronchiectasis, CVID (common variable immunodeficiency), Pseudomonas aeruginosa colonization Cult, Respiratory CF; Status:Hold For - Specimen/Data Collection; Requested for:[id number]; Perform:Lab Services - Office to Draw (Non-Blood Test); Order Comments:Immunoglobulin Immunodeficiency and bronchiectasis. History of mucoid pseudomonas.; Due:[id number];Ordered; For:Bronchiectasis, CVID (common variable immunodeficiency), Pseudomonas aeruginosa colonization; Ordered By:Rodriguez Quiroz; Site : Throat/Pharynx Chart Update 05/18/2022 Infectious Diseases Update Non scheduled evaluation I received and reviewed records from Dr. Solares Patient had been seen 05/11/2022 after a 05/03/2022 bronchoscopy. Bronchoscopy showed significant mucous plugging (right greater than left). 05/03/2022 lavage fluid culture sent to reference lab and results returned growing LIGHT Pseudomonas aeruginosa (resistant to tobramycin, susceptible to Cipro, levo, Zosyn and meropenem) Patient has been on aerosolized tobramycin once daily (on 16 off 16 days) 05/07/2022 labs showed: Random tobramycin level of 0.6 mcg/mL WBC count of approximately 34,000 Serum creatinine 1.33 05/18/2022 I SPOKE TO PATIENT about several issues: 1. Repeat CBC pending from 05/17/2022 after post bronchoscopy leukocytosis 2. Patient has had mucoid Pseudomonas in the past dating back to 2019. At that time isolate was intermediate susceptible to tobramycin. Regarding Pseudomonas, patient likely has multiple subpopulation's including mucoid and nonmucoid organisms (and probably some tobramycin susceptible or all resistant ?). Nonetheless the predominant organism at this time was tobramycin resistant. Ongoing aerosolized tobramycin might keep down the colony count or bacterial burden of other susceptible Pseudomonas not necessarily sampled by lavage. Certainly a dilutional effect. Nonetheless I suspect patient has multiple strains of Pseudomonas that would be isolated from mucus. Patient had already discontinued aerosolized tobramycin on 04/30/2022 in preparation for 05/03/2022 bronchoscopy. Interesting that patient's tobramycin level was still higher than expected suggesting ongoing systemic absorption. THUS, agree to suspending tobramycin aerosol treatment although it may have been having some effect at reducing the bacterial colony counts of susceptible organisms not otherwise sampled in the current culture. OFF tobramycin we might expect to see emergence of tobramycin susceptible isolates but this would require multiple samples for evaluation. 3. Patient now on regular normal saline aerosol and flutter valve to improve pulmonary toileting. 4. Stable kidney function (CKD, GFR approximately 50) PLAN - Follow-up on 05/17/2022 CBC - Remain off aerosolized tobramycin - I requested repeat sputum culture for more complete analysis. We will process as a cystic fibrosis sample at the main hospital. Patient to deliver sputum on 05/21/2022 to the [facility] facility. We will discuss results afterwards. We will request additional antibiotic testing for future interventions (for example, colistin which also can be aerosolized if needed) - Continue maximizing pulmonary toileting. I explained that mobilization of secretions and prevention of mucous plugging is a main principal of treatment over antibiotics. - Continue to follow-up with PCP, allergy and pulmonary (Dr. Solares) Will send note to Dr. Solares at [facility] in [place], [place] FAX [phone] Signatures Electronically signed by : Rodriguez Quiroz MD; May 18 2022 12:35PM EST (Author) Normal [facility] [employer] Chart Updateon 05-10-2022 Chart Update Chart Update 05/10/2022 update At last visit in March 2022 I requested follow-up laboratory studies which patient obtained on 05/07/2022 Tobramycin level good at 0.6 mcg/mL while taking aerosolized tobramycin on 16 days off 16 days Periodic treatment with oral antibiotics (usually levofloxacin) for mixed throat bryson, Pseudomonas aeruginosa and previously Streptococcus pneumoniae. 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 Patient reports new evaluation regarding possible new lesion/? Mass/? Infiltrate in the right lower lobe. Patient underwent bronchoscopy. No procedural or culture details known. Patient had no additional news and has follow-up with pulmonology in [facility] on 05/11/2022. NEW supervisor aircraft cleaning, Dr. Rabia Solares Post-bronchoscopy leukocytosis I asked the patient to relay WBC count to Dr. Solares Would recommend repeat CBC plus differential in 1 week on 05/17/2022. Pulmonary could order at local hospital for patient convenience (patient goes to [facility] in [facility]) Patient will call and let me know if we need to order and send fax to [facility] if pulmonary unable to do so I faxed a copy of white blood cell count report to pulmonary at [phone] (Dr. Solares) Signatures Electronically signed by : Rodriguez Quiroz MD; May 10 2022 2:37PM EST (Author) Normal [facility] [employer] CBC AND DIFFERENTIALon 05-07 % AUTOMATED IMMATURE GRAN 1.8 % High 0.0 - 0.9 [facility] Comment on above: Result Comment: Acacia ture Granulocyte Count (IG) includes promyelocytes, myelocytes and metamyelocytes but does not include bands. Percent differential counts (%) should be interpreted in the context of the absolute cell counts (cells/L). Performed By: #### C BCDF #### [address] [id number] DIFFERENTIAL SEE MANUAL DIFF Normal [facility] Comment on above: Performed By: #### C BCDF #### [address] [id number] Erythrocyte distribution width (RBC) [Ratio] 14.6 % High 11.5 - 14.5 [facility] Comment on above: Performed By: #### C BCDF #### [address] [id number] Hematocrit (Bld) [Volume fraction] 34.7 % Low 41.0 - 52.0 [facility] Comment on above: Performed By: #### C BCDF #### [address] [id number] Hemoglobin (Bld) [Mass/Vol] 11.0 g/dL Low 13.5 - 17.5 [facility] Comment on above: Performed By: #### C BCDF #### [address] [id number] MCHC (RBC) [Mass/Vol] 31.7 g/dL Low 32.0 - 36.0 [facility] Comment on above: Performed By: #### C BCDF #### [address] [id number] MCV (RBC) [Entitic vol] 92 fL Normal 80 - 100 [facility] Comment on above: Performed By: #### C BCDF #### [address] [id number] Platelets (Bld) [#/Vol] 376 10*3/uL Normal 150 - 450 [facility] Comment on above: Performed By: #### C BCDF #### [address] [id number] RBC 3.77 x10E12/L Low 4.50 - 5.90 [facility] Comment on above: Performed By: #### C BCDF #### [address] [id number] WBC (Bld) [#/Vol] 34.0 10*3/uL High 4.4 - 11.3 [facility] Comment on above: Performed By: #### C BCDF #### [address] [id number] COMPREHENSIVE PANELon 2022 Albumin [Mass/Vol] 3.6 g/dL Normal 3.4 - 5.0 [facility] Comment on above: Performed By: #### C MP #### [address] [id number] ALP [Catalytic activity/Vol] 94 U/L Normal 33 - 136 [facility] Comment on above: Performed By: #### C MP #### [address] [id number] ALT [Catalytic activity/Vol] 12 U/L Normal 10 - 52 [facility] Comment on above: Result Comment: Cathy ents treated with Sulfasalazine may generate falsely decreased results for ALT. Performed By: #### C MP #### [address] [id number] Anion gap [Moles/Vol] 12 mmol/L Normal 10 - 20 [facility] Comment on above: Performed By: #### C MP #### [address] [id number] AST [Catalytic activity/Vol] 14 U/L Normal 9 - 39 [facility] Comment on above: Performed By: #### C MP #### [address] [id number] Bilirubin [Mass/Vol] 0.6 mg/dL Normal 0.0 - 1.2 [facility] Comment on above: Performed By: #### C MP #### [address] [id number] Calcium [Mass/Vol] 8.8 mg/dL Normal 8.6 - 10.3 [facility] Comment on above: Performed By: #### C MP #### [address] [id number] Chloride [Moles/Vol] 95 mmol/L Low 98 - 107 [facility] Comment on above: Performed By: #### C MP #### [address] [id number] Creatinine [Mass/Vol] 1.33 mg/dL High 0.50 - 1.30 [facility] Comment on above: Performed By: #### C MP #### [address] [id number] GFR/1.73 sq M.predicted among non-blacks MDRD (S/P/Bld) [Vol rate/Area] 53 mL/min/{1.73_m2} Abnormal >90 [facility] Comment on above: Result Comment: CALC ULATIONS OF ESTIMATED GFR ARE PERFORMED USING THE 2020 CKD-EPI STUDY REFIT EQUATION WITHOUT THE RACE VARIABLE FOR THE IDMS-TRACEABLE CREATININE METHODS. https://jasn.asnjournals.org/content//ASN.741473973 8 Performed By: #### C MP #### [address] [id number] Glucose [Mass/Vol] 72 mg/dL Low 74 - 99 [facility] Comment on above: Performed By: #### C MP #### [address] [id number] HCO3 (Bld) [Moles/Vol] 28 mmol/L Normal 21 - 32 [facility] Comment on above: Performed By: #### C MP #### [address] [id number] Potassium [Moles/Vol] 3.9 mmol/L Normal 3.5 - 5.3 [facility] Comment on above: Performed By: #### C MP #### [address] [id number] Protein [Mass/Vol] 6.1 g/dL Low 6.4 - 8.2 [facility] Comment on above: Performed By: #### C MP #### [address] [id number] Sodium [Moles/Vol] 131 mmol/L Low 136 - 145 [facility] Comment on above: Performed By: #### C MP #### [address] [place] [place] [id number] Urea nitrogen [Mass/Vol] 22 mg/dL Normal 6 - 23 [facility] Comment on above: Performed By: #### C #### [address] [id number] Complete Blood Count + Diffe rentialon 05-07-2022 Erythrocyte distribution width (RBC) [Ratio] 14.6 % above high threshold See Below [facility] Work Phone: Comment on above: Reference Range: 11. 5 - 14.5 Hematocrit (Bld) [Volume fraction] 34.7 % below low threshold See Below [facility] Work Phone: Comment on above: Reference Range: 41. 0 - 52.0 Hemoglobin (Bld) [Mass/Vol] 11.0 g/dL below low threshold See Below [facility] Work Phone: Comment on above: Reference Range: 13. 5 - 17.5 MCHC (RBC) [Mass/Vol] 31.7 g/dL below low threshold See Below [facility] Work Phone: Comment on above: Reference Range: 32. 0 - 36.0 MCV (RBC) [Entitic vol] 92 fL 80 - 100 [facility] Work Phone: Platelets (Bld) [#/Vol] 376 10*3/uL 150 - 450 [facility] Work Phone: RBC (Bld) [#/Vol] 3.77 {x10E12/L} below low threshold See Below [facility] Work Phone: Comment on above: Reference Range: 4.5 0 - 5.90 WBC (Bld) [#/Vol] 34.0 10*3/uL above high threshold 4.4 - 11.3 [facility] Work Phone: Complete Blood Count + Differential SEE MANUAL DIFF [facility] Work Phone: Complete Blood Count + Differential 1.8 % above high threshold 0.0 - 0.9 [facility] Work Phone: Comment on above: Immature Granulocyte Count (IG) includes promyelocytes, myelocytes and metamyelocytes but does not include bands. Percent differential counts (%) should be interpreted in the context of the absolute cell counts (cells/L). IGGon 05-07-2022 IgG [Mass/Vol] 778 mg/dL Normal 700 - 1600 [facility] Comment on above: Result Comment: MONO CLONAL PROTEINS MAY CAUSE FALSELY LOW RESULTS IN THIS ASSAY. SERUM PROTEIN ELECTROPHORESIS SHOULD BE DONE THE FIRST TEST TO EVALUATE MONOCLONAL GAMMOPATHY. Performed By: #### I GG #### [facility] [address] [place] [address] Immunoglobulin G Level, Seru mon 05-07-2022 IgG [Mass/Vol] 778 mg/dL 700 - 1600 [facility] Work Phone: Comment on above: MONOCLONAL PROTEINS MAY CAUSE FALSELY LOWRESULTS IN THIS ASSAY. SERUM PROTEINELECTROPHORESIS SHOULD BE DONE THEFIRST TEST TO EVALUATE MONOCLONAL GAMMOPATHY. Laboratory - Chemistry and C hemistry - challengeon 05-07-2022 Albumin BCP dye [Mass/Vol] 3.6 g/dL 3.4 - 5.0 [facility] Work Phone: ALP [Catalytic activity/Vol] 94 U/L 33 - 136 [facility] Work Phone: ALT With P-5'-P [Catalytic activity/Vol] 12 U/L 10 - 52 [facility] Work Phone: Comment on above: Patients treated wit h Sulfasalazine may generate falsely decreased results for ALT. Anion gap [Moles/Vol] 12 mmol/L 10 - 20 [facility] Work Phone: AST With P-5'-P [Catalytic activity/Vol] 14 U/L 9 - 39 [facility] Work Phone: Bilirubin [Mass/Vol] 0.6 mg/dL 0.0 - 1.2 [facility] Work Phone: Calcium [Mass/Vol] 8.8 mg/dL 8.6 - 10.3 [facility] Work Phone: Chloride [Moles/Vol] 95 mmol/L below low threshold 98 - 107 [facility] Work Phone: CO2 [Moles/Vol] 28 mmol/L 21 - 32 [facility] Work Phone: Creatinine [Mass/Vol] 1.33 mg/dL above high threshold See Below [facility] Work Phone: Comment on above: Reference Range: 0.5 0 - 1.30 Glucose [Mass/Vol] 72 mg/dL below low threshold 74 - 99 [facility] Work Phone: Potassium [Moles/Vol] 3.9 mmol/L 3.5 - 5.3 [facility] Work Phone: Protein [Mass/Vol] 6.1 g/dL below low threshold 6.4 - 8.2 [facility] Work Phone: Sodium [Moles/Vol] 131 mmol/L below low threshold 136 - 145 [facility] Work Phone: Urea nitrogen [Mass/Vol] 22 mg/dL 6 - 23 [facility] Work Phone: Laboratory - Hematology and Cell countson 05-07-2022 Basophils/100 WBC (Bld) 0.0 % 0.0 - 2.0 [facility] Work Phone: Lymphocytes/100 WBC (Bld) 16.0 % See Below [facility] Work Phone: Comment on above: Reference Range: 13. 0 - 44.0 Monocytes/100 WBC (Bld) 9.0 % 2.0 - 10.0 [facility] Work Phone: MANUAL DIFFERENTIALon 2022 % BASOPHIL 0.0 % Normal 0.0 - 2.0 [facility] Comment on above: Performed By: #### M DIFF #### [address] [id number] % EOSINOPHIL 0.0 % Normal 0.0 - 6.0 [facility] Comment on above: Performed By: #### M DIFF #### [address] [id number] % LYMPHOCYTE 16.0 % Normal 13.0 - 44.0 [facility] Comment on above: Performed By: #### M DIFF #### [address] [id number] % MONOCYTE 9.0 % Normal 2.0 - 10.0 [facility] Comment on above: Performed By: #### M DIFF #### [address] [id number] % SEG NEUTROPHIL 75.0 % Normal 40.0 - 80.0 [facility] Comment on above: Result Comment: Perc ent differential counts (%) should be interpreted in the context of the absolute cell counts (cells/L). Performed By: #### M DIFF #### [address] [id number] ANC 25.50 x10E9/L High 1.60 - 5.50 [facility] Comment on above: Performed By: #### M DIFF #### [address] [id number] BASOPHIL 0.00 x10E9/L Normal 0.00 - 0.10 [facility] Comment on above: Performed By: #### M DIFF #### [address], [place] [id number] EOSINOPHIL 0.00 x10E9/L Normal 0.00 - 0.40 [facility] Comment on above: Performed By: #### M DIFF #### [address] [id number] LYMPHOCYTE 5.44 x10E9/L High 0.80 - 3.00 [facility] Comment on above: Performed By: #### M DIFF #### [address] [id number] MONOCYTE 3.06 x10E9/L High 0.05 - 0.80 [facility] Comment on above: Performed By: #### M DIFF #### [address] [id number] SEG NEUTROPHIL 25.50 x10E9/L High 1.60 - 5.00 [facility] Comment on above: Performed By: #### M DIFF #### [address] [id number] No Panel Informationon 05-07 25.50 {x10E9/L} above high threshold See Below [facility] Work Phone: Comment on above: Reference Range: 1.6 0 - 5.50 Reference Range: 1.6 0 - 5.00 0.00 {x10E9/L} See Below [facility] Work Phone: Comment on above: Reference Range: 0.0 0 - 0.10 Reference Range: 0.0 0 - 0.40 3.06 {x10E9/L} above high threshold See Below [facility] Work Phone: Comment on above: Reference Range: 0.0 5 - 0.80 5.44 {x10E9/L} above high threshold See Below [facility] Work Phone: Comment on above: Reference Range: 0.8 0 - 3.00 0.0 % 0.0 - 6.0 [facility] Work Phone: 75.0 % See Below [facility] Work Phone: Comment on above: Reference Range: 40. 0 - 80.0 Percent differential counts (%) should be interpreted in the context of the absolute cell counts (cells/L). 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 Have IgG level rechecked with next blood draw. If you develop fever, loss of taste or smell, sore throat, wheezing or shortness of breath, please let me know so we can order testing and possible infusion of immunoglobulin. Continue Breo. Use albuterol as needed. Continue tobramycin, dose to be determined by Dr. Quiroz. Continue tobramycin nebulized, 16 days on, 16 days off. I want to start nebulized acetylcysteine to think mucus but will check with [employer] Division Manager first. I will review CT chest once I obtain results from his PCP. Follow up in 3 months or sooner if symptoms worsen prior. By signing my name below, I, Jun Pratt, attest that this documentation has been prepared under the direction and in the presence of Sweetie Burr MD. All medical record entries made by the Perezibe were at my direction and personally dictated by me. I have reviewed the chart and agree that the record accurately reflects my personal performance of the history, physical exam, discussion and plan. Provider Impressions 1. CVID - Chronic, stable. Hizentra 6 gram weekly infusions are going well. Last IgG level was in September 2021. Continue Hizentra infusions. Some recent increase in infections. Have IgG level rechecked with next blood draw. If you develop fever, loss of taste or smell, sore throat, wheezing or shortness of breath, please let me know so we can order testing and possible infusion of immunoglobulin. 2. Asthma - Chronic, controlled. ACT is 23. Continue Breo. Use albuterol as needed. 3. Bronchiectasis - Chronic, controlled. He had a bronchoscopy this past Tuesday. Patient notes improvement in his energy but cough productive of thick mucus persists. He has a flutter valve but not sure if they are using it correctly. He is on aerosolized tobramycin, 16 days on and 16 days off. On exam, he has rhonchi x4 and wheezing x4. Continue tobramycin, dose to be determined by Dr. Quiroz. Continue tobramycin nebulized, 16 days on, 16 days off. I want to start nebulized acetylcysteine to thin his mucus but will check with [employer] Division Manager first. [facility] I will [facility] CT chest once I obtain results from his PCP. Follow up in 3 months or sooner if symptoms worsen prior. Moderate risk of disease progression exists. Chief Complaint Followup visit for CVID History of Present Illness He is accompanied by his . Since last visit, 10/25/2021, patient denied infections prior to seeing Dr. Quiroz last month. Dr. Quiroz prescribed levofloxacin x10 days for an infection. He improved but had persistent fatigue, no strength and severe cough. His states since Thanksgiving, he had pain in his right chest. He had a CT of chest ordered, which took a long time to get in. He reports the CT scan showed a dark area in right lung of unknown etiology or significance. He was referred for fluid removal from his chest (pleural effusion), but aborted the procedure because there was not enough fluid, per his . They have not received results of fluid cytology yet. A had persistent Sx and saw a supervisor aircraft cleaning at [facility], Dr. Rabia Solares, who performed bronchoscopy this past Tuesday. The bronchoscopy showed no growth or tumors. Patient notes improvement in his energy since his bronchoscopy but cough is the same as prior and productive. He was told mucus would persist and he was recommended clearing it as often as possible. He does have a flutter valve but admits they are not sure they are using it correctly. He continues Hizentra infusions, which are going well with no SE. He and his are unsure when his kidney function was last checked. Dr. Quiorz told him he would order a renal panel when he spoke to him last month. Review of Systems See attached Review of Systems in HPI. 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 Normal [employer] RED CELL MORPHOLOGYon [address] [facility] Comment on above: Performed By: #### M ORP2 #### [address] [id number] YULY CELLS Few Normal [facility] Comment on above: Performed By: #### M ORP2 #### [address] [id number] OVALOCYTES Few Normal [facility] Comment on above: Performed By: #### M ORP2 #### [address] [id number] RBC morphology finding Nom (Bld) See Below Normal [facility] Comment on above: Performed By: #### M ORP2 #### [address] [id number] TOBRAMYCINon 05-07-2022 TOBRAMYCIN 0.6 ug/mL Normal [facility] Comment on above: Result Comment: . Th erapeutic Ranges: Peak: 4.0-10.0 ug/mL . Trough: 0.0- 2.0 ug/mL Performed By: #### T OBRU #### [facility] [address] [place] [address] Tobramycin Level, Randomon 0 05-07-2022 Tobramycin [Mass/Vol] 0.6 ug/mL [facility] Work Phone: Comment on above: . Therapeutic Ranges : Peak: 4.0-10.0 ug/mL. Trough: 0.0- 2.0 ug/mL CULTURE OTHERon 05-03-2022 CULTURE OTHER Culture Observations : Susceptibility testing performed by [facility]. See report scanned in [employer]. Isolate 1 Pseudomonas aeruginosa Light growth of Normal [facility] Comment on above: Performed By: #### O THCX #### [facility] [address] [address] [address] Nadeen Broderick CYTOLOGYon 05-03-2022 SENT TO REF LAB 05/03/2022 Normal [facility] Comment on above: Performed By: #### C YTO #### [facility] [address], [place] [address] Dr. Nadeen Broderick GRAM STAINon 05-03-2022 COMMENTS NO ORGANISMS OBSERVED Normal [facility] Comment on above: Performed By: #### G STAIN #### [facility] [address] [place] [address] [address] Nadeen Broderick DIPHTHEROIDS Normal [facility] Comment on above: Performed By: #### G STAIN #### [facility] [address] [address] [address] Nadeen Broderick EPITHELIALS RARE Normal [facility] Comment on above: Performed By: #### G STAIN #### [facility] [address] [address] [address] Nadeen Broderick FUNGAL ELEMENTS Normal [facility] Comment on above: Performed By: #### G STAIN #### [facility] [address] [address] [address] Nadeen Broderick GRAM NEG BACILLI Normal [facility] Comment on above: Performed By: #### G STAIN #### [facility] [address] [address] [address] Nadeen IBARRA NEG DIPPLOCOCCI Normal [facility] Comment on above: Performed By: #### G STAIN #### [facility] [address] [address] [address] Nadeen Broderick GRAM POS BACILLI Normal [facility] Comment on above: Performed By: #### G STAIN #### [facility] [address] [address] [address] Nadeen Broderick GRAM POSITIVE COCCI Normal [facility] Comment on above: Performed By: #### G STAIN #### [facility] [address] [address] [address] Nadeen Broderick GRAM STAIN SOURCE R. LOWER LOBE LAVAGE Normal [facility] Comment on above: Performed By: #### G STAIN #### [facility] [address] [address] [address] Nadeen Broderick GS_DIPTH Normal [facility] Comment on above: Performed By: #### G STAIN #### [facility] [address] [address] [address] Nadeen Broderick WBC MODERATE Normal [facility] Comment on above: Performed By: #### G STAIN #### [facility] [address] [address] [address] Nadeen Broderick CBC W MANUAL DIFFon 04-30-19 23 ATYPICAL LYMPH # 1.30 103/ul Normal [facility] Comment on above: Performed By: #### C CAMILLE #### [facility] [address] [place] [address] Dr. Nadeen Broderick ATYPICAL LYMPH % 5 % Normal [facility] Comment on above: Performed By: #### C CAMILLE #### [facility] [address] [place] [address] Dr. Nadeen Broderick BAND # 0.0 103/ul Normal 0.0-0.3 [facility] Comment on above: Performed By: #### C CAMILLE #### [facility] [address] [place] [address] Dr. Nadeen Broderick BAND % 0 % Normal 0-5 [facility] Comment on above: Performed By: #### C CAMILLE #### [facility] [address] [place] [address] Dr. Naeden Broderick BASOM # 0.00 103/ul Normal 0.00-0.10 [facility] Comment on above: Performed By: #### C CAMILLE #### [facility] [address] [place] [address] Dr. Nadeen Broderick BASOM % 0.0 % Critically low 0.2-2.0 [facility] Comment on above: Performed By: #### C CAMILLE #### [facility] [address] [place] [address] Dr. Nadeen Broderick BLAST # Normal [facility] Comment on above: Performed By: #### C CAMILLE #### [facility] [address] [place] [address] Dr. Nadeen Broderick BLAST % Normal [facility] Comment on above: Performed By: #### C CAMILLE #### [facility] [address] [place] [address] Dr. Nadeen Broderick CORRECTED WBC Normal 4.0-11.0 [facility] Comment on above: Performed By: #### C CAMILLE #### [facility] [address] [place] [address] Dr. Nadeen Broderick EOS # 0.26 103/ul Normal 0.00-0.70 [facility] Comment on above: Performed By: #### C CAMILLE #### [facility] [address] [address] [address] Nadeen Broderick EOS% 1.0 % Normal 0.9-7.0 [facility] Comment on above: Performed By: #### C CAMILLE #### [facility] [address] [address] [address] Nadeen Broderick HCT 28.5 % Critically low 42.0-54.0 [facility] Comment on above: Performed By: #### C CAMILLE #### [facility] [address] [place] [address] Dr. Nadeen Broderick HGB 10.3 g/dl Critically low 14.0-18.0 [facility] Comment on above: Performed By: #### C CAMILLE #### [facility] [address] [place] [address] Dr. Nadeen Broderick LYMPHM # 4.96 103/ul Critically high 1.20-3.80 [facility] Comment on above: Performed By: #### C CAMILLE #### [facility] [address] [place] [address] Dr. Nadeen Broderick LYMPHM% 19.0 % Critically low 20.5-60.0 [facility] Comment on above: Performed By: #### C CAMILLE #### [facility] [address] [address] [address] Nadeen Broderick MCH 29.4 pg Normal 25.9-34.0 [facility] Comment on above: Performed By: #### C CAMILLE #### [facility] [address] [address] [address] Nadeen Broderick MCHC 36.1 g/dl Critically high 29.9-35.2 [facility] Comment on above: Performed By: #### C CAMILLE #### [facility] [address] [address] [address] Nadeen Broderick MCV 81.4 fL Normal 80.0-94.0 [facility] Comment on above: Performed By: #### C CAMILLE #### [facility] [address] [address] [address] Nadeen Broderick METAMYELOCYTE # Normal [facility] Comment on above: Performed By: #### C CAMILLE #### [facility] [address] [address] [address] Nadeen Broderick METAMYELOCYTE % Normal [facility] Comment on above: Performed By: #### C CAMILLE #### [facility] [address] [address] [address] Nadeen Broderick MONOM# 2.61 103/ul Critically high 0.30-0.80 [facility] Comment on above: Performed By: #### C CAMILLE #### [facility] [address] [place] [address] Dr. Nadeen Broderick MONOM% 10.0 % Normal 1.7-12.0 [facility] Comment on above: Performed By: #### C CAMILLE #### [facility] [address] [place] [address] Dr. Nadeen Broderick MPV 9.1 fL Critically low 9.5-13.5 [facility] Comment on above: Performed By: #### Jeronimo OBRIEN #### [facility] [address] [place] [address] Dr. Nadeen Broderick MYELOCYTE # Normal [facility] Comment on above: Performed By: #### C CAMILLE #### [facility] [address] [address] [address] Nadeen Broderick MYELOCYTE % Normal [facility] Comment on above: Performed By: #### C CAMILLE #### [facility] [address] [address] [address] Nadeen Broderick NRBC Normal [facility] Comment on above: Performed By: #### C CAMILLE #### [facility] [address] [address] [address] Nadeen Broderick PLT 320 103/ul Normal 150-450 [facility] Comment on above: Performed By: #### C CAMILLE #### [facility] [address] [address] [address] Nadeen Broderick RBC 3.50 106/ul Critically low 4.70-6.10 [facility] Comment on above: Performed By: #### Jeronimo OBRIEN #### [facility] [address] [address] [address] Nadeen Broderick RDW 13.3 % Normal 11.0-15.0 [facility] Comment on above: Performed By: #### Jeronimo OBRIEN #### [facility] [address] [address] [address] Nadeen Broderick SEG # 16.96 103/ul Critically high 1.40-6.50 [facility] Comment on above: Performed By: #### Jeronimo OBRIEN #### [facility] [address] [place] [address] Dr. Nadeen Broderick SEG % 65.0 % Normal 43.0-75.0 [facility] Comment on above: Performed By: #### Jeronimo OBRIEN #### [facility] [address] [address] [address] Nadeen Broderick WBC 26.1 103/ul Critically high 4.0-11.0 [facility] Comment on above: Performed By: #### Jeronimo OBRIEN #### [facility] [address] [address] [address] Nade[facility] Broder[facility] SARS-CoV-2 (COVID-19) RNA PERLITA+probe Ql (Unsp spec) Not detected Normal NOT DETECTED [facility] Comment on above: Result Comment: This test is not yet approved or cleared by the [place] FDA. When there are no FDA-approved or cleared tests available, and other criteria are met, FDA can make tests available under an emergency access mechanism called an Emergency Use Authorization (EUA). The EUA for this test is supported by the [place] of Health and Human Service's (HHS's) declaration that circumstances exist to justify the emergency use of in vitro diagnostics for the detection and/or diagnosis of the virus that causes COVID-19. This EUA will remain in effect (meaning this test can be used) for the duration of the COVID-19 declaration justifying emergency of IVDs, unless it is terminated or revoked by FDA (after which the test may no longer be used). When diagnostic testing is negative, the possibility of a false negative should be considered in the context of a patient's recent exposures and the presence of clinical signs and symptoms consistent with SARS-CoV-2. Performed By: #### C VDTB #### [facility] [address] [place] [address] Dr. Nadeen Broderick PROF CHEM 8 (BAS METB)on Anion gap [Moles/Vol] 12.4 mmol/L Normal [facility] Comment on above: Performed By: #### B MP #### [facility] [address] [place] [address] Dr. Nadeen Broderick Calcium [Mass/Vol] 9.0 mg/dL Normal 8.5-10.1 [facility] Comment on above: Performed By: #### B MP #### [facility] [address] [place] [address] Dr. Nadeen Broderick Chloride [Moles/Vol] 97 mmol/L Critically low 98-107 [facility] Comment on above: Performed By: #### B MP #### [facility] [address] [place] [address] Dr. Nadeen Broderick CO2 [Moles/Vol] 27.1 mmol/L Normal 21.0-32.0 [facility] Comment on above: Performed By: #### B MP #### [facility] [address] [place] [address] Dr. Nadeen Broderick Creatinine [Mass/Vol] 1.54 mg/dL Critically high 0.70-1.30 [facility] Comment on above: Performed By: #### B MP #### [facility] [address] [place] [address] Dr. Nadeen Broderick EGFR-AF SLOVENIAN 53 mL/min/1.73m2 Critically low >=60 [facility] Comment on above: Performed By: #### B MP #### [facility] [address] [place] [address] Dr. Nadeen Broderick EGFR-NON AF SLOVENIAN 43 mL/min/1.73m2 Critically low >=60 [facility] Comment on above: Performed By: #### B MP #### [facility] [address] [address] [address] Nadeen Broderick Glucose [Mass/Vol] 106 mg/dL Normal 74-106 [facility] Comment on above: Performed By: #### B MP #### [facility] [address] [address] [address] Nadeen Broderick Potassium [Moles/Vol] 3.5 mmol/L Normal 3.5-5.1 [facility] Comment on above: Performed By: #### B MP #### [facility] [address] [place] [address] Dr. Nadeen Broderick Sodium [Moles/Vol] 133 mmol/L Critically low 136-145 Th [facility] Comment on above: Performed By: #### B MP #### [facility] [address] [place] [address] Dr. Nadeen Broderick Urea nitrogen [Mass/Vol] 26.0 mg/dL Critically high 7.0-18.0 [facility] Comment on above: Performed By: #### B MP #### [facility] [address] [place] [address] Dr. Nadeen Broderick Urea nitrogen/Creatinin e [Mass ratio] 16.9 mg/mg Normal [facility] Comment on above: Performed By: #### B MP #### [facility] [address] [place] [address] Dr. Nadeen Broderick PROTIMEon 04-30-2022 INR Coag (PPP) [Relative time] 1.29 {INR} Normal [facility] Comment on above: Performed By: #### P TT, PT #### [facility] [address] [place] [address] Dr. Nadeen Broderick INR GUIDELINES SEE BELOW Normal [facility] Comment on above: Result Comment: DAVID RED INR: 2.0 - 3.0 CONDITIONS NOT LISTED BELOW 2.5 - 3.5 FOR PROSTHETIC HEART VALVE REPLACEMENT 2.5 - 3.5 RECURRENT THROMBOSIS Performed By: #### P TT, PT #### [facility] [address] [place], [place] [address] Dr. Nadeen Broderick PT Coag (PPP) [Time] 13.5 s Critically high 9.0-11.6 [facility] Comment on above: Performed By: #### P TT, PT #### [facility] [address] [place], [place] [address] Dr. Nadeen Broderick PTTon 04-30-2022 aPTT Coag (Bld) [Time] 53.6 s Critically high 22.3-36.2 [facility] Comment on above: Performed By: #### P TT, PT #### [facility] [address] [address] [address] Nadeen Broderick ID - Follow Upon 03-19-2022 ID - Follow Up Chief Complaint A telephone visit (audio only) between the patient (at the originating site) and the provider (at the distant site) was utilized to provide this telehealth service. Verbal consent was requested and obtained from RASHAD PHIPPS on this date, 03/19/2022 11:00 AM , for a telehealth visit. Telephone visit due to travel distance and ongoing COVID-19 pandemic in a patient with chronic immunosuppression Patient was last evaluated June 2021 History of Present IllnessSome data reviewed and entered into a note opened on 06/11/2021 in preparation for ID clinic on 06/12/2021 Patient last evaluated June 2021 Patient followed for: 1. Pseudomonas and Streptococcus pneumoniae airway colonization 2. Recurrent pseudomonas bronchitis/pneumonia 3. Bronchiectasis 4. Common variable immune deficiency/hypogammaglobu linemia 5. Kidney injury, improved after reducing aerosolized tobramycin to once daily (and after some reductions in IVIG dosing) Regarding Pseudomonas and Streptococcus pneumoniae colonization, bronchitis and intermittent recurrent pneumonia: The patient has been on tobramycin aerosols since November 2014. CT scan performed on 10/24/2015 showed decrease in bibasilar lung consolidation. Bronchiectasis was stable Clinically stable and improved. Continues daily tobramycin aerosol on 2 weeks off 2 weeks 07/19/2018 Pseudomonas susceptible to levofloxacin but intermediate susceptibility to tobramycin 02/01/2020 Klebsiella pneumoniae susceptible to Cipro/levo, tobramycin and TMP-SMX TODAY 03/19/2022 I spoke to the patient and his for 30 minutes The patient reports having had increased cough and sputum production since 03/10/2022. Patient saw his PCP who has arranged for CT scan of the chest, sputum culture and oxygen monitoring. Patient has had no hemoptysis, fever, chills, rigors, headache, rash, or peripheral edema. Patient also having some pleuritic/chest pain with coughing. Has not had major decline over the last 9 days but has not rebounded. Seems to feel like he is about 75% his usual state. Discussed options today. Agree with CT scan sputum culture and follow-up. Since patient seems to be having a flare in bronchitis and or pneumonia it is reasonable to treat empirically based on previous cultures. In the past patient has responded to empiric levofloxacin which was covered Streptococcus pneumoniae and some of the Pseudomonas. Certainly will cover all prior Pseudomonas isolate that had been identified. Patient continues to use aerosolized tobramycin. On 16 days then off 16 days. Currently off 16 days. And refill pending. 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) Reaction, drug, adverse (E947.9) (T50.905A) Past Medical History History of arthritis (V13.4) (Z87.39) History of asthma (V12.69) (Z87.09) History of cataract (V12.49) (Z86.69) History of esophageal reflux (V12.79) (Z87.19) History of malignant neoplasm (V10.90) (Z85.9) History of Prostate irregularity (602.9) (N42.9) Surgical History History of Cataract Surgery History of Sinus Surgery History of Thyroid Surgery Family History Family history of malignant neoplasm (V16.9) (Z80.9) Family history of malignant neoplasm (V16.9) (Z80.9) Family history of cardiac disorder (V17.49) (Z82.49) Family history of cardiac disorder (V17.49) (Z82.49) Social History Former smoker (V15.82) (Z87.891) Social alcohol use (Z78.9) Allergies Sulfa Drugs Rash; Recorded By: Sweetie Burr; 09/30/2014 2:01:39 PM Penicillins Recorded By: Hillary Hinds; 07/30/2014 3:31:11 PM Fish Recorded By: Hillary Hinds; 07/30/2014 3:31:11 PM Denied Xarelto TABS Allergy; 05 Jun 2015; Updated By: Mel Álvarez; 03/19/2022 11:14:54 AM type 3 reaction Current Meds Tobramycin 300 MG/5ML Inhalation Nebulization Solution; INHALE THE CONTENTS OF 1 AMPULE VIA NEBULIZER DAILY FOR 14 DAYS ON, THEN 14 DAYS OFF - REFILLS CALL: [phone]; Therapy: 17Dec2020 to (Last Rx:09Jul2021) Requested for: 09Jul2021 Ordered Rx By: Rodriguez Quiroz; Dispense: 0 Days ; #:16 Milliliter; Refill: 6; For: Bronchiectasis, CVID (common variable immunodeficiency); ZACH = N; Print Rx; Msg to Pharmacy: YES, [place] TO DISPENSE 16 AMPULES Atorvastatin Calcium 10 MG Oral Tablet; Therapy: 16Jun2018 to Recorded Rx By: Sweetie Burr; Dispense: 0 Days ; #: Sufficient Tablet; Refill: 0; ZACH = N; Record; Last Updated By: Mel Álvarez; 03/19/2022 11:14:54 AM Patitent is no longer taken this medication. Atorvastatin Calcium 20 MG Oral Tablet; Therapy: (Recorded:19Mar2022) to Recorded Dispense: 0 Days ; #: Sufficient; Refill: 0; ZACH = N; Record; Last Upda (more content not included)... Normal [employer] COMPREHENSIVE METABOLIC PANE Frank 10-01-2021 Albumin [Mass/Vol] 4.0 g/dL Normal 3.6-5.1 [facility] Comment on above: Performed By: #### 5 2114, 7600, 11305 #### [facility] of [address], [address] [place] [address] [place]: Ozzie Callejas MD Albumin/Globulin [Mass ratio] 1.8 {ratio} Normal 1.0-2.5 [facility] Comment on above: Performed By: #### 5 8984, 7600, 27265 #### [facility] of [address], [address] [place] [address] [place]: Ozzie Callejas MD ALP [Catalytic activity/Vol] 94 U/L Normal 35-144 [facility] Comment on above: Performed By: #### 5 89, 7600, 23013 #### [facility] of [address], [address] [place] [address] [place]: Ozzie Callejas MD ALT [Catalytic activity/Vol] 10 U/L Normal 9-46 [facility] Comment on above: Performed By: #### 5 8984, 7600, 76960 #### [facility] of [address], [address] [place] [address] [place]: Ozzie Callejas MD AST [Catalytic activity/Vol] 16 U/L Normal 10-35 [facility] Comment on above: Performed By: #### 5 8984, 7600, 98932 #### [facility] [address], [address] [place] [address] [place]: Ozzie Callejas MD Bilirubin [Mass/Vol] 0.5 mg/dL Normal 0.2-1.2 [facility] Comment on above: Performed By: #### 5 8984, 7600, 08248 #### [facility] of [address], [address] [place] [address] [place]: Ozzie Callejas MD Calcium [Mass/Vol] 9.1 mg/dL Normal 8.6-10.3 [facility] Comment on above: Performed By: #### 5 8984, 7600, 43689 #### [facility] of [address], [address] [place] [address] [place]: Ozzie Callejas MD Chloride [Moles/Vol] 101 mmol/L Normal 98-110 [facility] Comment on above: Performed By: #### 5 69, 7600, 20651 #### [facility] [place] [address] [place]: Ozzie Callejas MD CO2 [Moles/Vol] 26 mmol/L Normal 20-32 [facility] Comment on above: Performed By: #### 5 89, 7600, 02181 #### [facility] [place] [address] [place]: Ozzie Callejas MD Creatinine [Mass/Vol] 1.55 mg/dL High 0.70-1.11 [facility] Comment on above: Result Comment: For patients >49 years of age, the reference limit for Creatinine is approximately 13% higher for people identified as -[place]. Performed By: #### 5 89, 0, 45345 #### [facility] [place] [address] [place]: Ozzie Callejas MD eGFR NON-AFR. SLOVENIAN 41 mL/min/1.73m2 Low > OR = 60 [facility] Comment on above: Performed By: #### 5 3984, 0, 34460 #### [facility] [place] [address] [place]: Ozzie Callejas MD GFR/1.73 sq M.predicted among blacks MDRD (S/P/Bld) [Vol rate/Area] 47 mL/min/{1.73_m2} Low > OR = 60 [facility] Comment on above: Performed By: #### 5 8184, 7600, 99702 #### [facility] [place] [address] [place]: Ozzie Callejas MD Globulin (S) [Mass/Vol] 2.2 g/dL Normal 1.9-3.7 [facility] Comment on above: Performed By: #### 5 8984, 7600, 60048 #### [facility] of [address], [address] [place] [address] [place]: Ozzie Callejas MD Glucose [Mass/Vol] 92 mg/dL Normal 65-99 [facility] Comment on above: Result Comment: Fasting reference interval Performed By: #### 5 8984, 7600, 85259 #### [facility] of [address], [address] [place] [address] [place]: Ozzie Callejas MD Potassium [Moles/Vol] 4.3 mmol/L Normal 3.5-5.3 [facility] Comment on above: Performed By: #### 5 8984, 7600, 75909 #### [facility] of [address], [address] [place] [address] [place]: Ozzie Callejas MD Protein [Mass/Vol] 6.2 g/dL Normal 6.1-8.1 [facility] Comment on above: Performed By: #### 5 8984, 7600, 68488 #### [facility] of [address], [address] [place] [address] [place]: Ozzie Callejas MD Sodium [Moles/Vol] 137 mmol/L Normal 135-146 [facility] Comment on above: Performed By: #### 5 [id number], 7600, [id number] #### [facility] of [address], [address] [place] [address] [place]: Ozzie Callejas MD Urea nitrogen [Mass/Vol] 19 mg/dL Normal 7-25 [facility] Comment on above: Performed By: #### 5 [id number], 7600, [id number] #### [facility] of [address], [address] [place] [address] [place]: Ozzie Callejas MD Urea nitrogen/Creatinin e [Mass ratio] 12 mg/mg Normal 6-22 [facility] Comment on above: Performed By: #### 5 [id number], 7600, [id number] #### [facility] of [address], [address] [place] [address] [place]: Ozzie Callejas MD LIPID PANEL, [facility] [place] 06-2 Cholesterol [Mass/Vol] 114 mg/dL Normal <200 [facility] Comment on above: Order Comment: FASTI NG:YES FASTING: YES Performed By: #### 5 2584, 7600, 51939 #### [facility] [address], [address] [place] [address] [place]: Ozzie Callejas MD Cholesterol in HDL [Mass/Vol] 47 mg/dL Normal > OR = 40 [facility] Comment on above: Order Comment: FASTI NG:YES FASTING: YES Performed By: #### 5 5317, 7600, [id number] #### [facility] [address], [address] [place] [address] [place]: Ozzie Callejas MD Cholesterol in LDL [Mass/Vol] 53 mg/dL Normal [facility] Comment on above: Order Comment: FASTI NG:YES FASTING: YES Result Comment: Refe rence range: <100 Desirable range <100 mg/dL for primary prevention; <70 mg/dL for patients with CHD or diabetic patients with > or = 2 CHD risk factors. LDL-C is now calculated using the Jay Jay-Cezar calculation, which is a validated novel method providing better accuracy than the Friedewald equation in the estimation of LDL-C. Jay Jay TAYLOR et al. MARIBEL. 2013;310(19): 2719-7067 (http://education.[employer]/faq/DVR255) Performed By: #### 5 3345, 7600, 15660 #### [facility] [address], [address] [place] [address] [place]: Ozzie Callejas MD Cholesterol.total/ Cholesterol in HDL [Mass ratio] 2.4 {ratio} Normal <5.0 [facility] Comment on above: Order Comment: FASTI NG:YES FASTING: YES Performed By: #### 5 9702, 7600, 45184 #### [facility] [address], [address] [place] [address] [place]: Ozzie Callejas MD NON HDL CHOLESTEROL 67 mg/dL (calc) Normal <130 [facility] Comment on above: Order Comment: FASTI NG:YES FASTING: YES Result Comment: For patients with diabetes plus 1 major ASCVD risk factor, treating to a non-HDL-C goal of <100 mg/dL (LDL-C of <70 mg/dL) is considered a therapeutic option. Performed By: #### 5 8984, 7600, 78111 #### [facility] [address], [address] [place] [address] [place]: Ozzie Callejas MD Triglyceride [Mass/Vol] 60 mg/dL Normal <150 [facility] Comment on above: Order Comment: FASTI NG:YES FASTING: YES Performed By: #### 5 [id number], 7600, 46568 #### [facility] [place] [address] [place]: Ozzie Callejas MD TSH+FREE T4on 10-01-2021 Free T4 [Mass/Vol] 1.6 ng/dL Normal 0.8-1.8 [facility] Comment on above: Performed By: #### 5 [id number], 7600, [id number] #### [facility] [place] [address] [place]: Ozzie Callejas MD TSH Qn 0.68 m[IU]/L Normal 0.40-4.50 [facility] Comment on above: Performed By: #### 5 8984, 7600, 26138 #### [facility] [place] [address] [place]: Ozzie Callejas MD Tobacco Screening.on 022 Fall risk assessment a) No falls within the last year [facility] [employer] Work Phone: Tobacco use status [facility]PH[facility] b) No [facility] [employer] Work Phone: BASIC METABOLIC PANELon 12-2 Calcium [Mass/Vol] 8.8 mg/dL Normal 8.6-10.3 [facility] Comment on above: Order Comment: FASTI NG:UNKNOWN FASTING: UNKNOWN Performed By: #### 1 0165 #### [facility] [address], [address] [place] [address] [place]: Ozzie Callejas MD Chloride [Moles/Vol] 99 mmol/L Normal 98-110 [facility] Comment on above: Order Comment: FASTI NG:UNKNOWN FASTING: UNKNOWN Performed By: #### 1 0165 #### [facility] [address], [address] [place] [address] [place]: Ozzie Callejas MD CO2 [Moles/Vol] 28 mmol/L Normal 20-32 [facility] Comment on above: Order Comment: FASTI NG:UNKNOWN FASTING: UNKNOWN Performed By: #### 1 0165 #### [facility] [address], [address] [place] [address] [place]: Ozzie Callejas MD Creatinine [Mass/Vol] 1.34 mg/dL High 0.70-1.11 [facility] Comment on above: Order Comment: FASTI NG:UNKNOWN FASTING: UNKNOWN Result Comment: For patients >49 years of age, the reference limit for Creatinine is approximately 13% higher for people identified as -Ken[place]. Performed By: #### 1 0165 #### [facility] [address], [address] [place] [address] [place]: Ozzie Callejas MD eGFR NON-AFR. SLOVENIAN 49 mL/min/1.73m2 Low > OR = 60 [facility] Comment on above: Order Comment: FASTI NG:UNKNOWN FASTING: UNKNOWN Performed By: #### 1 0165 #### [facility] [address], [address] [place] [address] [place]: Ozzie Callejas MD GFR/1.73 sq M.predicted among blacks MDRD (S/P/Bld) [Vol rate/Area] 57 mL/min/{1.73_m2} Low > OR = 60 [facility] Comment on above: Order Comment: FASTI NG:UNKNOWN FASTING: UNKNOWN Performed By: #### 1 0165 #### [facility] [address], [address] [place] [address] [place]: Ozzie Callejas MD Glucose [Mass/Vol] 84 mg/dL Normal 65-99 [facility] Comment on above: Order Comment: FASTI NG:UNKNOWN FASTING: UNKNOWN Result Comment: Fasting reference interval Performed By: #### 1 0165 #### [facility] [address], [address] [place] [address] [place]: Ozzie Callejas MD Potassium [Moles/Vol] 4.3 mmol/L Normal 3.5-5.3 [facility] Comment on above: Order Comment: FASTI NG:UNKNOWN FASTING: UNKNOWN Performed By: #### 1 0165 #### [facility] [place] [address] [place]: Ozzie Callejas MD Sodium [Moles/Vol] 135 mmol/L Normal 135-146 [facility] Comment on above: Order Comment: FASTI NG:UNKNOWN FASTING: UNKNOWN Performed By: #### 1 [id number] #### [facility] [place] [address] [place]: Ozzie Callejas MD Urea nitrogen [Mass/Vol] 20 mg/dL Normal 7-25 [facility] Comment on above: Order Comment: FASTI NG:UNKNOWN FASTING: UNKNOWN Performed By: #### 1 [id number] #### [facility] [place] [address] [place]: Ozzie Callejas MD Urea nitrogen/Creatinin e [Mass ratio] 15 mg/mg Normal 6-22 [facility] Comment on above: Order Comment: FASTI NG:UNKNOWN FASTING: UNKNOWN Performed By: #### 1 [id number] #### [facility] [place] [address] [place]: Ozzie Callejas MD Vital Signs Date Time Vital Sign Value Performing Clinician Facility 05-24-2023 12:05-0500 Diastolic blood pressure 68 mm[Hg] Blaise Marie DO Work Phone: [facility] 05-24-2023 12:05-0500 Systolic blood pressure 98 mm[Hg] Blaise Marie DO Work Phone: [facility] 05-24-2023 11:30-0500 Body height 180.3 cm Blaise Marie DO Work Phone: [facility] 05-24-2023 11:30-0500 Body mass index (BMI) [Ratio] 20.35 kg/m2 Blaise Marie DO Work Phone: [facility] 05-24-2023 11:30-0500 Body temperature 97.7 [degF] Blaise Marie DO [facility] 05-24-2023 11:30-0500 Body weight 66.18 kg Blaise Marie DO Work Phone[facility] 05-24-2023 11:30-0500 Heart rate 87 /min Blaise Marie DO Work Phone[facility] 05-24-2023 11:30-0500 SaO2% (BldA) [Mass fraction] 93 % Blaise Marie DO [facility] Comment on above: pt is on o2 at home , hands are cold 02-02-2023 15:26-0400 Body height 180.3 cm Poli Campbell MD Work Phone: [facility] 02-02-2023 15:26-0400 Body temperature 97.3 [degF] Poli Campbell MD Work Phone: [facility] 02-02-2023 15:26-0400 Body weight 68.77 kg Poli Campbell MD Work Phone: [facility] 02-02-2023 15:26-0400 Diastolic blood pressure 67 mm[Hg] Poli Campbell MD Work Phone: [facility] 02-02-2023 15:26-0400 Heart rate 73 /min Poli Campbell MD Work Phone: [facility] 02-02-2023 15:26-0400 Respiratory rate 18 /min Poli Campbell MD Work Phone: [facility] 02-02-2023 15:26-0400 SaO2% (BldA) [Mass fraction] 97 % Poli Campbell MD Work Phone: [facility] 02-02-2023 15:26-0400 Systolic blood pressure 119 mm[Hg] Poli Campbell MD Work Phone: [facility] 11-12-2022 11:19-0400 Body mass index (BMI) [Ratio] 20.73 kg/m2 Blaise Marie Work Phone: LY-Tsuxnkqlbl-[facility] [place] [facility] Work Phone: 11-12-2022 11:19-0400 Body surface area Derived from formula 1.86 m2 Blaise Marie Work Phone: AP-Zayaryaixd-Zyqt [facility] [place] [facility] Work Phone: 11-12-2022 11:19-0400 Body weight 67.4 kg Blaise Marie Work Phone: SW-Ehbcxjfwah-Kotm [facility] [place] [facility] Work Phone: 11-12-2022 10:42-0400 Diastolic blood pressure 64 mm[Hg] Blaise Marie Work Phone: PC-Heovnvkzvj-Xxyw [facility] [place] [facility] Work Phone: 11-12-2022 10:42-0400 Heart rate 89 /min Blaise Marie Work Phone: GJ-Gudacspejl-Svry [facility] [place] [facility] Work Phone: 11-12-2022 10:42-0400 Systolic blood pressure 98 mm[Hg] Blaise Marie Work Phone: GP-Yzpfpbduqh-Ivdb [facility] [place] [facility] Work Phone: 05-07-2022 10:39-0500 Body mass index (BMI) [Ratio] 20.92 kg/m2 Blaise Marie Work Phone: TA-Qmcnjlqwqm-Iqqd [place] [address] DO Work Phone: 05-07-2022 10:39-0500 Body surface area Derived from formula 1.87 m2 Blaise Marie Work Phone: BC-Prxiwlfdtn-Oqvm [place] [address] DO Work Phone: 05-07-2022 10:39-0500 Body weight 68.04 kg Blaise Marie Work Phone: WY-Srakznxijo-Bubd [place] [address] DO Work Phone: 05-07-2022 10:39-0500 Diastolic blood pressure 61 mm[Hg] Blaise Marie Work Phone: QU-Qocrjjruhe-Xalk [place] [address] DO Work Phone: 05-07-2022 10:39-0500 Heart rate 90 /min Blaise Marie Work Phone: KP-Nmsyvnczmh-Zgdj [place] [address] DO Work Phone: 05-07-2022 10:39-0500 SaO2% (BldA) [Mass fraction] 98 % Blaise Marie Work Phone: WR-Agycyfkmdg-Vksn [place] [address] DO Work Phone: 05-07-2022 10:39-0500 Systolic blood pressure 112 mm[Hg] Blaise Marie Work Phone: DI-Saoziohmcq-Wzoh [place] [address] DO Work Phone: 09-25-2021 10:13-0400 Body mass index (BMI) [Ratio] 22.32 kg/m2 Blaise Marie Work Phone: OS-Btmpgkqkvt-Bmgp [place] [address] DO Work Phone: 09-25-2021 10:13-0400 Body surface area Derived from formula 1.92 m2 Blaise Marie Work Phone: GU-Bhzzfrdhvl-Jhyt [place] [address] DO Work Phone: 09-25-2021 10:13-0400 Body weight 72.57 kg Blaise Marie Work Phone: GR-Mimjmkoclr-Iabn [place] [address] DO Work Phone: 09-25-2021 10:13-0400 Diastolic blood pressure 75 mm[Hg] Blaise Marie Work Phone: CQ-Mhhpaqbarg-Pncx [place] [address] DO Work Phone: 09-25-2021 10:13-0400 Heart rate 85 /min Blaise Marie Work Phone: OC-Eypnpuynld-Wgod [place] [address] DO Work Phone: 09-25-2021 10:13-0400 SaO2% (BldA) [Mass fraction] 96 % Blaise Marie Work Phone: NG-Pzuftzvkvf-Wolj [place] [address] DO Work Phone: 09-25-2021 10:13-0400 Systolic blood pressure 106 mm[Hg] Blaise Marie Work Phone: SM-Xekjfvepuc-Utbd [place] [address] DO Work Phone: 06-12-2021 09:38-0500 0 1 Blaise Marie Work Phone: [facility]Infectious Disease[facility] Work Phone: Comment on above: [employer] 11-14-2020 10:23-0400 Body height 180.34 cm Blaise Marie Work Phone: SH-Xusaxqgkwd-Qihn [place] [address] DO Work Phone: 11-14-2020 10:23-0400 Body mass index (BMI) [Ratio] 22.87 kg/m2 Blaise Marie Work Phone: HL-Amrdtgbqsr-Wpbc [place] [address] DO Work Phone: 11-14-2020 10:23-0400 Body surface area Derived from formula 1.94 m2 Blaise Marie Work Phone: [facility] 2100 DO Work Phone: 11-14-2020 10:23-0400 Body weight 74.39 kg Blaise Marie Work Phone: [facility] 2099 DO Work Phone: 11-14-2020 10:23-0400 Diastolic blood pressure 74 mm[Hg] Blaise Marie Work Phone: [facility] 2099 DO Work Phone: 11-14-2020 10:23-0400 Systolic blood pressure 116 mm[Hg] Blaise Marie Work Phone: [facility] 2099 DO Work Phone: 12-22-2018 13:54-0400 BMI (Body Mass Index) 21.2 kg/m2 Rodriguez Quiroz KT-Tpzowce-Zvaaqhv e 2470 Work Phone: 12-22-2018 13:54-0400 Body weight 68.95 kg Rodriguez Eagleton AP-Hsbvclb-Mwcac ak e [address]70 Work Phone: 12-22-2018 13:54-0400 BP Diastolic 72 mm[Hg] Rodriguez Quiroz AH-Oxioecx-Eefda ak [address] Work Phone: 12-22-2018 13:54-0400 BP Systolic 111 mm[Hg] Rodriguez Quiroz TK-Oeagkix-Siqmu ak e 2470 Work Phone: 12-22-2018 13:54-0400 BSA (Body Surface Area) 1.88 m2 Rodriguez Quiroz MW-Mktluur-Prxarxi e 2470 Work Phone: 12-22-2018 13:54-0400 Height 180.34 cm Rodriguez Quiroz KB-Vkroogy-Mlxpu ak e 2470 Work Phone: 12-22-2018 13:54-0400 Pulse (Heart Rate) 73 /min Rodriguez Quiroz HH-Nkxugxj-Ht stlak e 2470 Work Phone: Encounters Encounter Date Encounter Type Care Provider Facility Start: 07-04-2023 End: 07-05-2023 ambulatory RABIA P [facility] Start: 07-01-2023 Refill Blaise Chadwick Work Phone: [facility] Comment on above: Mixed hyperlipidemia Start: 06-16-2023 Refill Blaise Chadwick Work Phone: [facility] Comment on above: Other specified hypo thyroidism Start: 06-14-2023 End: 06-14-2023 ambulatory [facility] Start: 06-14-2023 End: 06-14-2023 Office outpatient visit 15 minutes Sweetie Burr MD Work Phone: [facility] Comment on above: CVID (common variabl e immunodeficiency) (CMS/HCC) (Primary Dx) Start: 06-09-2023 End: 06-10-2023 ambulatory [facility] Start: 06-07-2023 End: 06-08-2023 [facility] Start: 05-24-2023 End: 05-25-2023 ambulatory [facility] Start: 05-24-2023 End: 05-24-2023 ambulatory [facility] Start: 05-24-2023 End: 05-24-2023 Office outpatient visit 25 minutes Blaise Marie DO Work Phone: [facility] Comment on above: Chronic obstructive pulmonary disease, unspecified COPD type (CMS-HCC) (Primary Dx); Mixed hyperlipidemia; 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 ([facility]); Chronic lymphocytic leukemia of B-cell type not having achieved remission ([facility]); Bronchiectasis; Paroxysmal atrial fibrillation (CMS-HCC); Chronic renal impairment, stage 3a (CMS-HCC) Start: 05-13-2023 End: 05-13-2023 ambulatory [facility] Start: 05-05-2023 End: 05-06-2023 ambulatory [facility] Start: 04-29-2023 Refill Blaise Chadwick Work Phone: [facility] Comment on above: Gastro-esophageal re flux disease without esophagitis Start: 04-29-2023 End: 04-29-2023 ambulatory RODRIGUEZ Oropeza [facility] Ambulatory Start: 04-29-2023 End: 04-29-2023 Phys/qhp telephone evaluation 21-30 min Rodriguez Quiroz MD Work Phone: [facility] Comment on above: Pneumonia due to Pse udomonas species, unspecified laterality, unspecified part of lung (CMS/HCC) (Primary Dx); Bronchiectasis without complication (CMS/HCC) Start: 04-27-2023 End: 04-28-2023 ambulatory [facility] Start: 04-27-2023 End: 04-27-2023 ambulatory RABIA Figueroa [facility] Start: 04-17-2023 Refill Blaise Chadwick Work Phone: [facility] Comment on above: Bronchiectasis Start: 04-05-2023 End: 04-05-2023 ambulatory [facility] Start: 02-11-2023 End: 02-11-2023 ambulatory [facility] Start: 02-11-2023 End: 02-11-2023 Office outpatient visit 40 minutes Sweetie Burr MD Work Phone: [facility] Comment on above: Bronchiectasis witho ut complication (CMS/HCC) (Primary Dx); 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) Start: 02-02-2023 End: 02-02-2023 ambulatory BLAISE MARIE Facility:[facility] Start: 02-02-2023 End: 02-02-2023 Visit (SP) Office Poli Campbell MD Work Phone: Hematology/Oncology Comment on above: Monoclonal B-cell ly mphocytosis (Primary Dx); CLL (chronic lymphocytic leukemia) (HCC); 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n [address] [place] Facility:[id number] Start: 08-06-2022 Office outpatient vi sit 25 minutes Blaise Marie Work Phone: KW-Wyugzyflsg-Zuwugf ke 2100 DO Work Phone: Start: 08-06-2022 Patient encounter procedure Clary Beck Ramonaiva Work Phone: RG-Bcygwfofla-Etafhp DISKOVRe 2100 DO Work Phone: Start: 08-06-[address] [place] Facility:[id number] Start: 06-10-2022 Chart Update Blaise Marie Work Phone: [facility] Work Phone: Start: 05-20-2022 Chart Update Blaise Mraie Work Phone: [facility] Work Phone: Start: 05-19-2022 Chart Update Blaise Marie Work Phone: [facility] Work Phone: Start: 05-18-2022 AUDIT Blaise Marie Work Phone: [facility] Work Phone: Start: 05-10-2022 Chart Update Blaise Marie Work Phone: [facility] Work Phone: Start: 05-07-2022 Office outpatient vi sit 40 minutes Blaise Marie Work Phone: YF-Skhybfvikk-Blusyk Work Phone: Start: 05-07-2022 Patient encounter procedure Clary eliza Beck Cynthia Work Phone: HL-Arimzbsuix-Nnyrmg ke 2100 DO Work Phone: Start: 05-07-[address] Blaise Marie Facility:[id number] Start: 05-05-2022 Encounter for prepro cedural laboratory examination [facility] . [facility] Start: 05-03-2022 End: 05-03-2022 ambulatory [facility] . Facility:H1 Start: 04-30-2022 End: 05-01-2022 ambulatory [facility] . Facility:H1 Start: 04-30-2022 End: 05-01-2022 Encounter for preprocedural laboratory examination [facility] . Facility:H1 Start: 03-19-[address] Blaise Marie Facility:[id number] Start: 03-19-2022 Phys/qhp telephone evaluation 21-30 min Blaise Marie Work Phone: [facility] Work Phone: Start: 10-09-2021 Phys/qhp telephone evaluation 21-30 min Blaise Marie Work Phone: [facility] Work Phone: Start: 09-25-2021 Office outpatient vi sit 25 minutes Blaise Beck Cynthia Work Phone: AS-Wnzmgjvxyx-Nbsgpr ke 2100 DO Work Phone: Start: 07-09-2021 AUDIT Blaise Beck Cynthia Work Phone: [facility] Work Phone: Start: 06-12-2021 Phys/qhp telephone evaluation 21-30 min Blaise Marie Work Phone: [facility] [place] Work Phone: Start: 05-15-2021 Office outpatient vi sit 15 minutes Blaise Marie Work Phone: PI-Gvujxgnrzg-[place] 6045 DO Work Phone: Start: 01-16-2021 Phys/qhp telephone evaluation 21-30 min Blaise Marie Work Phone: [facility] Work Phone: Start: 12-17-2020 Rx Change Blaise Marie Work Phone: [facility] Work Phone: Start: 11-14-2020 Office outpatient vi sit 25 minutes Blaise Marie Work Phone: AO-Ncmapcdecl-Wzsyir ke 2100 DO Work Phone: Start: 12-22-2018 Patient encounter procedure Rodriguez anderson NG-Ucvinsh-Ndqjkapf 2470 Work Phone: Start: 06-16-2018 Patient encounter procedure Rodriguez anderson WV-Nbidiuqgev-Lqyqvf Work Phone: Start: 12-23-2017 Patient encounter procedure Rodriguez anderson DJ-Nlyxpbjsem-Bmagxc Work Phone: Start: 08-16-2017 Patient encounter procedure Rodriguez Montemayor lton GQ-Otdcakilqq-Ubkeer Work Phone: Start: 06-17-2017 Patient encounter procedure Rodriguez anderson LI-Mnaoyhueui-Enbbio Work Phone: Start: 06-07-2017 Patient encounter procedure Rodriguez anderson WP-Xjdrtgunvl-Drqsbi Work Phone: Start: 04-29-2017 Patient encounter procedure Rodriguez anderson NN-Zcjlmllpzf-Mmyfuc Work Phone: Start: 02-15-2017 Patient encounter procedure Rodriguez Montemayor justin MG-Pzeunupuyv-Qsfipi Work Phone: Procedures Date Procedure Procedure Detail Performing Clinician Start: 05-24-2023 Adult depression scr eening assessment Blaise Marie DO Work Phone: Start: 04-29-2023 FOLLOW UP IN INFECTI OUS DISEASE SWEETIE KIESHA Start: 04-05-2023 Follow-up visit Follow-up BLAISE Beck CYNTHIA Start: 04-05-2023 Adult depression scr eening assessment Blaise Marie DO Work Phone: Start: 01-30-2020 Cul bact xcpt urine blood/stool aerobic isol Rodriguez Quiroz Start: 12-05-2018 Assay of gammaglobul in iga igd igg igm each Rodriguez Quiroz Start: 12-05-2018 Blood count complete auto&auto difrntl wbc Rodriguez Quiroz Start: 12-05-2018 Comprehensive metabo lic 2000 panel Rodriguez Quiroz Cataract surgery Rodriguez de anda History of Sinus Surgery Sco vijaya Quiroz History of Thyroid Surgery Rachael Quiroz Plan of Treatment Date Care Activity Detail Author Start: 01-21-2033 DTaP,Tdap and Td Vaccines (2 - Td or Tdap) DTaP,Tdap and Td Vaccines (2 - Td or Tdap) [facility] Start: 01-21-2033 DTaP/Tdap/Td Vaccine s (2 - Td or Tdap) DTaP/Tdap/Td Vaccines (2 - Td or Tdap) [facility] Start: 01-21-2033 Urine microalbumin profile DTaP,Tdap,Td Vaccine (2 - Td or Tdap) [facility] Start: 02-02-2026 Diabetes Screening Diabetes Screenin g [facility] Start: 05-24-2024 Adult BMI Screening Adult BMI Screen ing [facility] Start: 05-24-2024 Depression Screening Depression Scre [facility] Start: 05-24-2024 Fall Risk Screening Fall Risk Screen ing [facility] Start: 05-24-2024 Tobacco Screening Tobacco Screening [facility] Start: 04-05-2024 Adult BMI Screening Adult BMI Screen ing [facility] Start: 04-05-2024 Depression Screening Depression Scre ening [facility] Start: 04-05-2024 Fall Risk Screening Fall Risk Screen ing [facility] Start: 04-05-2024 Tobacco Screening Tobacco Screening [facility] Start: 02-03-2024 End: 05-04-2024 CBC W Auto Differential panel - Blood CBC + DIFF Lab Routine Monoclonal B-cell lymphocytosis Expected: 02/03/2024 (Approximate), Expires: 05/04/2024 [facility] Work Phone: Comment on above: Expected: 02/03/2024 (Approximate), Expires: 05/04/2024 Start: 02-03-2024 End: 05-04-2024 Comprehensive metabolic 2000 panel - Serum or Plasma COMP METABOLIC PANEL Lab Routine Monoclonal B-cell lymphocytosis Expected: 02/03/2024 (Approximate), Expires: 05/04/2024 [facility] Work Phone: Comment on above: Expected: 02/03/2024 (Approximate), Expires: 05/04/2024 Start: 02-03-2024 End: 05-04-2024 Lactate dehydrogenase [Enzymatic activity/volume] in Serum or Plasma LD LACTATE DEHYDRO Lab Routine Monoclonal B-cell lymphocytosis Expected: 02/03/2024 (Approximate), Expires: 05/04/2024 [facility] Work Phone: Comment on above: Expected: 02/03/2024 (Approximate), Expires: 05/04/2024 Start: 10-25-2023 End: 10-25-2023 Patient encounter procedure 10/25/2023 2:00 PM EDT Office Visit [facility] [address] [place] [id number] Sweetie Burr MD [address] [facility] [address] [place] [address] [facility] Start: 07-19-2023 End: 07-19-2023 Patient encounter procedure 07/19/2023 1:00 PM EDT Office Visit [facility] [address] [place] [address] [facility] Start: 07-09-2023 Medicare Annual Wellness Visit Medicare Annual Wellness Visit [facility] Start: 04-29-2023 End: 04-29-2023 Telemedicine consultation with patient 04/29/2023 9:[address] [place] [address] [address] [place] [address] [place] [address] [place] [address] [facility] Start: 04-27-2023 End: 04-27-2023 Patient encounter procedure 04/27/2023 11:00 AM EST Appointment [facility] - [facility] Imaging [address] [place] [id number] [facility] Imaging Start: 03-02-2023 End: 06-01-2023 PROTEIN ELECTROPHORESIS SERUM W/INTERP PROTEIN ELECTROPHORESIS SERUM W/INTERP Lab Routine Monoclonal B-cell lymphocytosis Expected: 03/02/2023 (Approximate), Expires: 06/01/2023 [facility] Work Phone: Comment on above: Expected: 03/02/2023 (Approximate), Expires: 06/01/2023 Start: 02-24-2023 COVID-19 Vaccine (4 - Pfizer risk series) COVID-19 Vaccine (4 - Pfizer risk series) [facility] Start: 02-24-2023 COVID-19 Vaccine () COVID-19 Vaccine () [facility] Start: 02-24-2023 Covid-19 Vaccine () Covid-19 Vaccine () [facility] Start: 02-24-2023 COVID-19 Vaccine () COVID-19 Vaccine ([facility] Start: 02-11-2023 VIRFUVHOME, Provider : Sweetie Burr, Status: Pen, Time: 10:30 AM VIRFUVHOME, Provider: Sweetie Burr, Status: Elvis, Time: 10:30 AM [facility] [place] [facility] Work Phone: Start: 02-02-2023 End: 05-04-2023 MONOCLONAL PROTEIN, SERUM (BLOOD) [facility] Work Phone: Comment on above: Expected: 02/02/2023 , Expires: 05/04/2023 Start: 11-19-2022 FUV, Provider: Sweetie Burr, Status: Elvis, Time: 10:30 AM FUV, Provider: Sweetie Burr, Status: Elvis, Time: 10:30 AM IU-Tdvszpdqfe-[place]wd [place] [address] DO Work Phone: Start: 08-06-2022 VIRFUWINDYE, Provider : Sweetie Burr, Status: Pen, Time: 10:15 AM VIRFUVHOME, Provider: Sweetie Burr, Status: Pen, Time: 10:15 AM AA-Lgqkmurfwf-Ckwq [place] [address] DO Work Phone: Start: 04-11-2022 Advance Directive Discussion Advance Directive Discussion [facility] Start: 04-11-2022 Depression Assessment Depression Ass essment [facility] Start: 03-26-2022 FUV, Provider: Sweetie Burr, Status: Elvis, Time: 10:00 AM FUV, Provider: Sweetie Burr, Status: Pen, Time: 10:00 AM TU-Tfauhhyjly-[place] [address] DO Work Phone: Start: 10-09-2021 VIRFUVNERYE, Provider : Rodriguez Quiroz, Status: Pen, Time: 8:20 AM VIRFUVHOME, Provider: Rodriguez Quiroz, Status: Pen, Time: 8:20 AM MG-Infectious Disease-[facility] [place] Work Phone: Start: 09-25-2021 FUV, Provider: Sweetie Burr, Status: Pen, Time: 10:00 AM FUV, Provider: Sweetie Burr, Status: Pen, Time: 10:00 AM MG-Infectious Disease-[facility] [place] Work Phone: Start: 06-12-2021 VIRFUVHOME, Provider : Rodriguez Quiroz, Status: Pen, Time: 9:40 AM VIRFUVHOME, Provider: Rodriguez Quiroz, Status: Pen, Time: 9:40 AM RC-Iaezukeyrn-Szdb [place] [address] DO Work Phone: Start: 05-15-2021 VIRFUVHOME, Provider : Sweetie Burr, Status: Pen, Time: 10:15 AM VIRFUVHOME, Provider: Sweetie Burr, Status: Pen, Time: 10:15 AM DS-Gorfyihdaj-[place] [address] DO Work Phone: Start: 1958 Diabetes mellitus screening Diabetes Screening [facility] Start: 1940 Lipid panel Lipid Panel [facility] Start: 1940 Medicare Annual Wellness Visit Medicare Annual Wellness Visit (AWV) [facility] Start: 1940 Thyroid stimulating hormone measurement TSH Level [facility] End: 05-24-2024 CBC panel - Blood by Automated count CBC without diff Lab Routine Chronic obstructive pulmonary disease, unspecified COPD type (CMS-HCC) 1 Occurrences starting 05/24/2023 until 05/24/2024 [employer] Work Phone: Comment on above: 1 Occurrences starti ng 05/24/2023 until 05/24/2024 CBC panel - Blood by Automated count CBC without diff Lab Routine Chronic obstructive pulmonary disease, unspecified COPD type (CMS-HCC) 05/24/2023 9:52 PM EST [employer] CBC W Auto Different ial panel - Blood CBC + DIFF Lab Routine Monoclonal B-cell lymphocytosis 02/02/2023 3:25 PM EDT [facility] Work Phone: End: 08-11-2024 Comprehensive metabolic 2000 panel - Serum or Plasma Comprehensive metabolic panel Lab Routine Bronchiectasis without complication (CMS/HCC) 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) q 3 month for 4 Occurrences starting 02/11/2023 until 08/11/2024 [facility] Work Phone: Comment on above: q 3 month for 4 Occu rrences starting 02/11/2023 until 08/11/2024 End: 02-12-2024 IgG [Mass/volume] in Serum or Plasma IgG Lab Routine Bronchiectasis without complication (CMS/HCC) 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 Planned Goals not documented MN-Pwcayfgmme-Uijl na Work Phone: Immunizations Immunization Date Immunization Notes Care Provider [facility] 01-21-2023 respiratory syncytia l virus (RSV) vaccine, adjuvanted (AREXVY) Poli Campbell MD Work Phone: [facility] 01-21-2023 tetanus toxoid, redu leatha diphtheria toxoid, and acellular pertussis vaccine, adsorbed Poli Campbell MD Work Phone: [facility] 12-30-2022 influenza (HD-IIV4) vaccine, age 65+ yr, high dose, quadrivalent, PF (FLUZONE HIGH-DOSE) Poli Campbell MD Work Phone: [facility] 12-30-2022 Pfizer COVID-19 vacc ine, Fall 2022, 12 years and older, (30mcg/0.3mL) Sweetie Burr MD Work Phone: [facility] Work Phone: 10-13-2022 zoster vaccine recombinant Poli Campbell MD Work Phone: [facility] 08-10-2022 zoster vaccine recombinant Poli Campbell MD Work Phone: [facility] 01-06-2022 Fluzone High-Dose Quadrivalent 0.7 ML Intramuscular Suspension Prefilled Syringe Blaise Marie Work Phone: [facility] 01-06-2022 Pfizer COVID-19 Vac Bivalent 30 MCG/0.3ML Intramuscular Suspension Blaise Marie Work Phone: [facility] Work Phone: 08-12-2021 Comirnaty 30 MCG/0.3 ML Intramuscular Suspension Blaise Marie Work Phone: [facility] [place] Work Phone: 01-28-2021 Fluad Quadrivalent 0 .5 ML Intramuscular Prefilled Syringe Blaise Marie Work Phone: [facility] 01-28-2021 Pfizer-BioNTech COVI D-19 Vacc 30 MCG/0.3ML Intramuscular Suspension Blaise Marie Work Phone: [facility] [place] Work Phone: 05-28-2020 Pfizer-BioNTech COVI D-19 Vacc 30 MCG/0.3ML Intramuscular Suspension Blaise Marie Work Phone: [facility] Work Phone: 05-05-2020 COVID-19, mRNA, LNP- S, PF, 100mcg/0.5mL Dose Blaise Marie DO Work Phone: [place] 05-05-2020 Pfizer-BioNTech COVI D-19 Vacc 30 MCG/0.3ML Intramuscular Suspension Blaise Marie Work Phone: [facility] 01-11-2020 Fluad Quadrivalent 0 .5 ML Intramuscular Prefilled Syringe Blaise Isaacrachael Work Phone: [facility] 02-27-2019 pneumococcal polysaccharide vaccine, 23 valent Blaise Marie Work Phone: [facility] 12-28-2018 AS03 adjuvant Poli Campbell MD Work Phone: [facility] 12-28-2018 Seasonal trivalent influenza vaccine, adjuvanted, preservative free Blaise Mcelroyiva Work Phone: [facility] 01-20-2018 influenza, high dose seasonal, preservative-free Blaise Marie Work Phone: [facility] 01-18-2018 influenza, injectabl e, quadrivalent, contains preservative Poli Campbell MD Work Phone: [facility] 04-29-2017 pneumococcal conjuga te vaccine, 13 valent; Translations: [Prevnar 13 Intramuscular Suspension] Rodriguez [facility] Comment on above: Series: 04-11-2017 pneumococcal conjuga te vaccine, 13 valent Blaise Mcelroyiva Work Phone: [facility] 01-23-2017 influenza, injectabl e, quadrivalent, contains preservative Blaise Isaacrachael Work Phone: [facility] 02-23-2016 influenza, high dose seasonal, preservative-free Blaise Marie Work Phone: [facility] 01-29-2015 influenza, high dose seasonal, preservative-free Blaise Marie Work Phone: [facility] 02-12-2014 influenza, seasonal, injectable Blaise Ebony Mcelroyiva Work Phone: [facility] 02-06-2013 influenza virus vacc ine, whole virus Blaise Beck Cynthia Work Phone: [facility] 01-12-2012 influenza, seasonal, injectable Blaise Ebony Mcelroyiva Work Phone: [facility] 06-10-2011 pneumococcal polysaccharide vaccine, 23 valent Blaise Marie Work Phone: [facility] Payers Date Payer Category Payer Unknown 2003 Medicare [id number] 1959 Medicare [id number] 1959 Unknown [id number] 1938 Unknown [id number] 2.16.84 [id number] 1938 Unknown [id number] 2.16.84 [id number] 1938 Unknown [id number] 2.16. [id number] 1938 Unknown [id number] 2.16. [id number] 1938 Unknown [id number] 2.16. [id number] 1938 Unknown [id number] 2.16. [id number] 1938 Unknown [id number] 2.16.8 40.1.203915.3.579.2.1286 1938 Unknown [id number] 2.16.84 0.1.417423.3.579.2.1286 1938 Unknown [id number] 2.16.8 40.1.797273.3.579.2.1286 1938 Unknown [id number] 2.16.8 40.1.137467.3.579.2.1244 1938 Unknown [id number] 2.16.8 40.1.125570.3.579.2.1244 1938 Unknown [id number] 2.16.8 40.1.415450.3.579.2.1244 1938 Unknown [id number] 2.16.8 40.1.846276.3.579.2.1244 1938 Unknown [id number] 2.16.8 40.1.279701.3.579.2.1286 1938 Unknown [id number] 2.16.8 40.1.626942.3.579.2.128 1938 Unknown [id number] 2.16.8 40.1.387863.3.579.2.1286 1938 Unknown [id number] 2.16.8 40.1.823012.3.579.2.1286 1938 Unknown [id number] 2.16.84 0.1.644813.3.579.2.1286 1938 Unknown [id number] 2.16.84 [id number] Social History Date Type Detail Facility Start: 02-02-2023 End: 03-17-2023 Former smoker Former smoker [facility] Start: 08-14-2021 End: 02-02-2023 Tobacco smoking status NHIS Ex-smoker [facility] History of tobacco use Current smoker [facility] History of tobacco use Cigarette Smoker C [facility] History of tobacco use Passive smoker [facility] Start: 08-14-2021 End: 02-02-2023 Tobacco use and exposure Smokeless tobacco non-user [facility] Start: 02-02-2023 Alcohol intake Ex-drinker (finding) [facility] Start: 02-02-2023 End: 03-17-2023 Tobacco use panel [facility] National Score (1-10 0), lower number is lower risk 87 [facility] Start: 1940 Sex Assigned At Not on file C [facility] Start: 02-11-2023 Tobacco smoking stat us NHIS Never smoked tobacco [facility] Start: 04-05-2023 End: 05-24-2023 Alcohol intake Current drinker of alcohol (finding) [facility] Has the [employer], [employer], or water zanda threatened to shut off services in your home in past 12Mo No [facility] Do you belong to any clubs or organizations such as spiritism groups, unions, fraternal or athletic groups, or school groups? Yes [facility] Are you now , , , , never or living with a partner? [facility] How often to you hav e a drink containing alcohol? Monthly or less [facility] How often do you hav e 6 or more drinks on 1 occasion? Never [facility] Do you feel stress - tense, restless, nervous, or anxious, or unable to sleep at night because your mind is troubled all the time - these days [OSQ] Only a little [facility] Start: 03-09-2022 Education 17 [facility] Start: 1940 Sex Assigned At Male [facility] Start: 04-16-2018 Gender identity Identifies as male gender (finding) [facility] Start: 04-16-2018 Sexual orientation Heterosexual (fin ding) [facility] Start: 04-19-2023 End: 04-29-2023 Exposure to SARS-CoV-2 (event) Not sure [facility] NEGATED: Highlighted row - - KW-Nyqamnxdne-Iaixr a Work Phone: Functional Status Date Assessment Result Facility NEGATED: Highlighted row Functional performance Functional status health issues are not documented Disease KG-Fqqkokmgnt-Plsny a Work Phone: Mental Status Date Assessment Result Facility NEGATED: Highlighted row Cognitive function [Interpretation] Cognitive status health issues are not documented Disease SX-Lwugawvdla-Zxqgm a Work Phone: Clinical Notes 12-10-2018 to 06-19-2023 Assessment & Plan Note - Sweetie Burr MD - 06/19/2023 2:08 PM EDTAssessment & Plan Note - Sweetie Burr MD - 06/19/2023 2:08 PM EDTSweetie Burr MD - 06/14/2023 12:15 PM EST Note Date & Type Note Facility 06-19-2023 Evaluation + Plan note Associated Problem(s): CVID (common variable immunodeficiency) (CMS/[facility]) His level is back up to his baseline. His last creatinine was within normal limits. Continue Hizentra 7 g weekly infusions. Obtain IgG level blood work before next appointment in October 2023. [facility] Work Phone: 06-19-2023 Miscellaneous Notes Associated Problem(s): CVID (common variable immunodeficiency) ([facility]) His level is back up to his baseline. His last creatinine was within normal limits. Continue Hizentra 7 g weekly infusions. Obtain IgG level blood work before next appointment in October 2023. documented in this encounter [facility] Work Phone: 06-14-2023 History of Present illness Narrative Subjective Rashad Phipps is a 82 y.o. male who presents for Follow-up (Blood work). Chief Complaint Patient presents with Follow-up Blood work Patient presents virtually from home, unaccompanied. Since last visit, 05-13-2023, patient reports the bronchiectasis is problematic and he cannot get rid of it. He makes excess mucus and not sure how to avoid it. He takes his 3% sodium chloride nebulizer 3x a day most days. The solution is giving him some results with the 3%. He is on Anoro but has used it only twice. Patient's Hizentra 7 g weekly infusions are going well and he continues tolerating them. He denies any infections. His next infusion is . His IgG level did increase. His creatinine has been good for a while, per patient. 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 Physical Exam Constitutional: Appearance: Normal appearance. HENT: Head: Normocephalic and atraumatic. Eyes: Extraocular Movements: Extraocular movements intact. Conjunctiva/sclera: Conjunctivae normal. Pupils: Pupils are equal, round, and reactive to light. Pulmonary: Effort: Pulmonary effort is normal. Musculoskeletal: Cervical back: Normal range of motion. Skin: Findings: No rash. Neurological: Mental Status: He is alert and oriented to person, place, and time. Mental status is at baseline. Psychiatric: Mood and Affect: Mood normal. Behavior: Behavior normal. Thought Content: Thought content normal. Judgment: Judgment normal. Assessment/Plan CVID (common variable immunodeficiency) (CMS/HCC) His level is back up to his baseline. His last creatinine was within normal limits. Continue Hizentra 7 g weekly infusions. Obtain IgG level blood work before next appointment in October 2023. By signing my name below, I, Jun Pratt, attest that this documentation has been prepared under the direction and in the presence of Sweetie Burr MD. All medical record entries made by the Scribe were at my direction and personally dictated by me. I have reviewed the chart and agree that the record accurately reflects my personal performance of the history, physical exam, discussion and plan. documented in this encounter [facility] Work Phone: 06-14-2023 Instructions Arabella Singh - 06/14/2023 12:15 PM EST Continue Hizentra 7 g weekly infusions. Obtain IgG level blood work before next appointment in October 2023. Continue 3% sodium chloride nebulizer as needed. Follow up Tuesday at [place], 10-25-2023 at 2:00 pm or sooner if symptoms worsen prior. documented in this encounter [facility] Work Phone: 05-24-2023 History of Present illness Narrative IM PROGRESS NOTE Patient - Rashad Phipps Age - 82 y.o. - 1940 ASSESSMENT & PLAN 1. Chronic obstructive pulmonary disease, unspecified COPD type ([facility]) -currently stable taking Breo once daily. However poor insurance coverage. -will try switching to Anoro 1 puff daily. Rx written today. -encourage patient to continue using his oxygen nightly and as much as possible during the day with or without activity. He was assured there are no negative consequences of using his oxygen. - CBC without diff; Future - umeclidinium-vilanteroL (ANORO ELLIPTA) 62.5-25 mcg/actuation blister with device; Inhale 1 puff in the morning. Dispense: 90 each; Refill: 1 2. Mixed hyperlipidemia -currently on atorvastatin 20 mg daily -repeat lipid panel to assess efficacy of current treatment - Lipid profile; Future - Comprehensive metabolic panel; Future 3. 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 Keep follow-up with immunology 4. Chronic lymphocytic leukemia of B-cell type not having achieved remission ([facility]) -early stage -no active treatment contemplated at this time. -keep follow-up with Oncology as previously scheduled. Repeat CBC 5. Bronchiectasis -chronic problem which is stable, but with exacerbations several times a year -keep regular follow-up with pulmonology regarding bronchoscopy 6. Paroxysmal atrial fibrillation ([facility]) -rate is currently controlled -continue Xarelto 20 mg daily 7. Chronic renal impairment, stage 3a ([facility]) -renal protective strategies reviewed with the patient -repeat GFR today Subjective 82-year-old male presents for recheck on his COPD. Denies any flare-ups since last evaluation. Currently taking Breo inhaler once daily. -sputum production is consistent. He can feel his bronchiectasis starting to buildup . -no fevers at this point. -has not had problems sleeping. Has not had to limit his normal ADLs. -he has been using home oxygen nightly, and the portable unit at least several days a week. 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 He definitely feels this is helped, he has more energy, less fatigue, and feels less short of breath. -he is having problems with the Breo. Poor insurance coverage. He does like the ease of use however. -still using nebulized sodium chloride when having increased sputum. A review of systems was negative except for the following: ENT: hearing change Respiratory: Scheduled to see pulmonology regarding repeat bronchoscopy in late July Cardiovascular: Heart rate has been controlled. He denies any edema. No problems with current medications Genito-Urinary: urinary frequency/urgency Immunologic: Recently was seen by bioinformatics support specialist and Infectious Disease. They had no changes to his current regimen for CVID. Exam BP 98/68 (BP Site: Left Arm, BP Postition: Sitting) Pulse 87 Temp 36.5 C (97.7 F) (Oral) Ht 180.3 cm (5' 11 ) Wt 66.2 kg (145 lb 14.4 oz) SpO2 93% Comment: pt is on o2 at home , hands are cold BMI 20.35 kg/m Physical Exam Vitals reviewed. Constitutional: General: He is not in acute distress. Appearance: He is normal weight. He is not toxic-appearing. HENT: Head: Normocephalic. Right Ear: External ear normal. Left Ear: External ear normal. Ears: Comments: Decreased hearing bilaterally. Wearing hearing aids. Nose: No congestion or rhinorrhea. Mouth/Throat: Mouth: Mucous membranes are moist. Comments: Postnasal drainage noted posterior pharynx. Clear Eyes: General: No scleral icterus. Neck: Vascular: No carotid bruit. Cardiovascular: Rate and Rhythm: Normal rate. Rhythm irregular. Heart sounds: Murmur (3/6 systolic murmur 2nd right interspace and left lower sternal border) heard. No gallop. Comments: Mildly diminished posterior tibial pulses bilaterally Pulmonary: Effort: Pulmonary effort is normal. Breath sounds: Wheezing (Scattered wheezing bilateral lower reynoso) present. No rales. Comments: Air movement is noted bilaterally all reynoso Abdominal: Palpations: Abdomen is soft. Musculoskeletal: Right lower leg: No edema. Left lower leg: No edema. Skin: General: Skin is warm and dry. Coloration: Skin is not jaundiced. Findings: No bruising. Neurological: Mental Status: He is alert and oriented to person, place, and time. Motor: No weakness. Coordination: Coordination normal. Psychiatric: Mood and Affect: Mood normal. Behavior: Behavior normal. Meds Current Outpatient Medications: acetaminophen (TYLENOL) 500 mg tablet, Take 1 tablet (500 mg total) by mouth every 6 (six) hours as needed for pain., Disp: , Rfl: atorvastatin (LIPITOR) 20 mg tablet, TAKE 1 TABLET (20 MG TOTAL) BY MOUTH IN THE MORNING, Disp: 90 tablet, Rfl: 1 cholecalciferol, vitamin D3, 2,000 units capsule, Take 1 capsule (2,000 Units total) by mouth in the morning., Disp: , Rfl: famotidine (PEPCID) 40 mg tablet, TAKE 1 TABLET BY MOUTH EVERY DAY, Disp: 90 tablet, Rfl: 1 finasteride (PROSCAR) 5 mg tablet, TAKE 1 TABLET BY MOUTH EVERY DAY (Patient taking differently: Take 1 tablet (5 mg total) by mouth in the morning.), Disp: 90 tablet, Rfl: 4 IMMUN GLOB G,IGG,/PRO/IGA 0-50 (HIZENTRA SUBQ), Inject under the skin every 7 days. , Disp: , Rfl: levothyroxine (SYNTHROID, LEVOTHROID) 75 MCG tablet, TAKE 1 TABLET BY MOUTH EVERY DAY, Disp: 90 tablet, Rfl: 1 rivaroxaban (XARELTO) 20 mg tablet tablet, Take 1 tablet (20 mg total) by mouth in the morning., Disp: 90 tablet, Rfl: 3 sodium chloride 3 % nebulizer solution, , Disp: , Rfl: sodium chloride 0.9 % nebulizer solution, Inhale 3 mL by nebulization in the morning and 3 mL at noon and 3 mL in the evening and 3 mL before bedtime., Disp: 90 mL, Rfl: 12 umeclidinium-vilanteroL (ANORO ELLIPTA) 62.5-25 mcg/actuation blister with device, Inhale 1 puff in the morning., Disp: 90 each, Rfl: 1 Lab Results Hospital Outpatient Visit on 05/05/2023 Component Date Value Ref Range Status IgG 05/05/2023 [id number] - 1,741 mg/dL Final Other Testing No results found. Blaise Marie DO., [facility] Office: [phone] [facility]-29-2023 History of Present illness Narrative Infectious Diseases Clinic Follow-up: Reason for Visit: FOLLOW UP Telephone assessment History of Current Issue Patient was last evaluated 03/19/2022 but several calls and chart updates (05/18/22, 05/19/22 and 06/10/22) Patient has been following regularly with pulmonary medicine in [facility]. Patient currently using a flutter valve and hypertonic saline to help mobilize secretions. Patient had previously been taking aerosolized tobramycin but has not been using since early 2022. Has not had any significant decline. It seems that he has dramatically improved pulmonary hygiene with guidance from pulmonary. This is excellent news. Patient has chronic bronchiectasis and immunoglobulin deficiency. Continues to follow-up with allergy and immunology for IVIG. Periodic ID clinic follow-up regarding cultures and treatment. Previously had both aerosolized tobramycin. This was discontinued approximately 1 year ago. Patient has tolerated levofloxacin in the past for flares. Patient's pulmonary microbiology has shown pneumococci, haemophilus, and mixed Pseudomonas (including susceptible and resistant mucoid strains). Last culture that I located in May 2022 grew predominantly mucoid Pseudomonas susceptible to Zosyn, ceftazidime, meropenem but resistant to levofloxacin and tobramycin). Previous cultures had shown more susceptible organisms. Also patient has had some intermediate susceptible pneumococci. Patient and his report hospitalization at [facility] in March 2023. Patient cannot recall antibiotic treatment but I was able to locate some information showing that respiratory cultures grew haemophilus influenza. 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 Patient had repeat CT scan for follow-up on 04/27/2023 and has an appointment with pulmonary medicine in 1 week to discuss results and any diagnostic testing and or treatments. Currently patient is now using oxygen when up and about. 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 Patient has had no fever, chills, night sweats, hemoptysis, headache, rash, nausea, vomiting, or diarrhea. No recent change in consistency and coloration of sputum. Overall patient feels better with hypertonic saline treatment and flutter valve use PAST MEDICAL HISTORY: Past Medical History: Diagnosis Date Disorder of prostate, unspecified Prostate irregularity Personal history of malignant neoplasm, unspecified History of malignant neoplasm Personal history of other diseases of the digestive system History of esophageal reflux Personal history of other diseases of the musculoskeletal system and connective tissue History of arthritis Personal history of other diseases of the nervous system and sense organs History of cataract Personal history of other diseases of the respiratory system 09/25/2021 History of asthma PAST SURGICAL HISTORY: Past Surgical History: Procedure Laterality Date CATARACT EXTRACTION 07/30/2014 Cataract Surgery SINUS SURGERY 07/30/2014 Sinus Surgery THYROID SURGERY 07/30/2014 Thyroid Surgery ALLERGIES: Allergies Allergen Reactions Apixaban Itching Other reaction(s): Rash, itching Other reaction(s): Rash, itching Other reaction(s): Rash, itching Edoxaban Unknown Other reaction(s): Rash, itching Other reaction(s): Rash, itching Other reaction(s): Rash, itching Fish Containing Products Unknown Levofloxacin Unknown Penicillins Unknown Rivaroxaban Unknown Sulfa (Sulfonamide Antibiotics) Itching and Rash MEDICATIONS: Current Outpatient Medications: acetaminophen (Tylenol) 500 mg tablet, Take 1 tablet (500 mg) by mouth every 6 hours if needed., Disp: , Rfl: atorvastatin (Lipitor) 20 mg tablet, Take 1 tablet (20 mg) by mouth., Disp: , Rfl: cholecalciferol (Vitamin D-3) 50 mcg (2,000 unit) capsule, Take 1 capsule (50 mcg) by mouth., Disp: , Rfl: famotidine (Pepcid) 40 mg tablet, Take 1 tablet (40 mg) by mouth once daily., Disp: , Rfl: finasteride (Proscar) 5 mg tablet, Take 1 tablet (5 mg) by mouth once daily., Disp: , Rfl: fluticasone furoate-vilanteroL (Breo Ellipta) 200-25 mcg/dose inhaler, Inhale 1 puff once daily., Disp: , Rfl: immune globulin, human, (Hizentra) subcutaneous infusion, Inject 35 mL (7 g) under the skin 1 (one) time per week. Infuse via FREEDOM 60 pump subcutaneously into 2-3 sites over 60 minutes using f1200 tubing. Allow medication to reach room temperature prior to administration. Storage: Refrigerate., Disp: , Rfl: levothyroxine (Synthroid, Levoxyl) 75 mcg tablet, Take 1 tablet (75 mcg) by mouth once daily., Disp: , Rfl: rivaroxaban (Xarelto) 20 mg tablet, Take 1 tablet (20 mg) by mouth., Disp: , Rfl: sodium chloride 0.9 % nebulizer solution, INHALE 1 VIAL BY MOUTH 3 TIMES DAILY, Disp: , Rfl: PHYSICAL EXAMINATION: Telephone evaluation ASSESSMENT / RECOMMENDATIONS: 1. Pseudomonas and Streptococcus pneumoniae airway colonization 2. Recurrent pseudomonas bronchitis/pneumonia 3. Bronchiectasis 4. Common variable immune deficiency/hypogammaglobulinemia 5. Kidney injury, improved after reducing aerosolized tobramycin to once daily (and after some reductions in IVIG dosing) 6. Chronic stable leukocytosis. Baseline appears to be in the 20,000 range. Has had higher numbers in the 45,000 range that were probably correlating with flares/pneumonia. 7. Haemophilus pneumonia in March 2023 Aerosolized tobramycin was discontinued early in 2022 when culture showed highly resistant mucoid Pseudomonas although it is likely the patient has a smaller viable population of susceptible Pseudomonas. Regardless during the interval patient has been doing well with increase pulmonary toileting with hypertonic saline and flutter valve use. Patient now following more regularly with pulmonary medicine in [facility] (Dr. Solares) I have received regular notes from pulmonary office which is very helpful and greatly appreciated Today we discussed patient's status and my role as an infectious disease specialist. I did mention that patient has previously tolerated use of tobramycin and oral levofloxacin which could be used in the future. Also if patient has severe pneumonia and requires hospitalization empiric treatment with agents such as Zosyn or ceftazidime would be appropriate based on most recent (May 2022) sputum cultures. Therefore I recommended patient obtain sputum culture. I asked the patient to speak to pulmonary to see if they would order that at [facility]. Alternatively I can print the requisition and fax to the patient's laboratory near his home. Not urgent but I think it would be helpful to have surveillance cultures of his current respiratory bryson. PLAN: 1. Continue to follow regularly with pulmonary (Dr. Solares) 2. I asked patient to see if he could get a sputum culture ordered with pulmonary whom he follows with next week. If not [facility] I think it would be helpful to have surveillance sputum culture every 6 to 12 months. 3. Follow-up with pulmonary in [address] scan from 04/27/[address] scan showing possible new mass. Diagnostic or therapeutic plans pending with pulmonary. 4. ID office staff will contact patient for 6-month phone follow-up. Dr. Quiroz available and during the interim. Patient has contact information but can call ID office at [phone] I spent 40 minutes in the professional and overall care of this patient. Rodriguez Quiroz MD documented in this encounter [facility] Work Phone: 02-15-2023 Evaluation + Plan note Associated Problem(s): Pseudomonas aeruginosa colonization No growth in current culture from bronchoscopy. I would like him to continue to follow with Dr. Quiroz so he can stay in the loop of his case. That way if he develops another infection ID can give their opinion. [facility] Work Phone: 02-15-2023 Miscellaneous Notes Associated Problem(s): Pseudomonas aeruginosa colonization No growth in current culture from bronchoscopy. I would like him to continue to follow with Dr. Quiroz so he can stay in the loop of his case. That way if he develops another infection ID can give their opinion. Associated Problem(s): Bronchiectasis (CMS/HCC) His case is incredibly complicated due to his bronchietasis. He recently underwent a bronchoscopy with clearing of the excessive secretions he develops in his airways. Currently no growth from bronchoscopy which is a great sign. He is treated by Dr. Solares. 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 Jay in the past caused decreased renal function Associated Problem(s): CVID (common variable immunodeficiency) (CMS/HCC) He will continue his infusions. He is receiving Hizentra 7 grams weekly. He is tolerating it well. IgG level q 3 months with close monitoring of renal function. Overall he is much better with less infections. He does not have any side effects from his infusions. His case is incredibly complicated due to his bronchietasis. He recently underwent a bronchoscopy with clearing of the excessive secretions he develops in his airways. Currently no growth from bronchoscopy which is a great sign. documented in this encounter [facility] Work Phone: 02-15-2023 Evaluation + Plan note Associated Problem(s): Bronchiectasis ([facility]) His case is incredibly complicated due to his bronchietasis. He recently underwent a bronchoscopy with clearing of the excessive secretions he develops in his airways. Currently no growth from bronchoscopy which is a great sign. He is treated by Dr. Solares. 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 Jay in the past caused decreased renal function [facility] Work Phone: 02-15-2023 Evaluation + Plan note Associated Problem(s): CVID (common variable immunodeficiency) (CMS/[facility]) He will continue his infusions. He is receiving Hizentra 7 grams weekly. He is tolerating it well. IgG level q 3 months with close monitoring of renal function. Overall he is much better with less infections. He does not have any side effects from his infusions. His case is incredibly complicated due to his bronchietasis. He recently underwent a bronchoscopy with clearing of the excessive secretions he develops in his airways. Currently no growth from bronchoscopy which is a great sign. [facility] Work Phone: 02-11-2023 History of Present illness Narrative Subjective Rashad Phipps is a 82 y.o. male who presents for Immunodeficiency and Recurrent Pneumonia. Chief Complaint Patient presents with Immunodeficiency Recurrent Pneumonia Patient is at home accompanied by his . Patient returned to Dr. Solares, [employer], in Apr 2022 for breathing issues. He underwent bronchoscopy about a week ago and did well. Patient was told they sent in samples but results have not returned yet. The physician told him he may have to have periodic bronchoscopies; however, the goal was to eventually not require any. Patient is using Aerobika but it does not work as well as the hypertonic solution. This is more effective for him. Patient feels well currently and plans to mow the yard this afternoon. He has an appointment with Dr. Solares 05/10/2023. Patient notes his infusions are going well and he had lab work a week ago. Patient denies any new or worsening issues with his kidneys. He has not seen Dr. Quiroz recently. He ws told to set up a meeting next month but patient has not. Review of Systems Constitutional: Negative. HENT: Negative for ear discharge, ear pain, rhinorrhea, sinus pressure, sinus pain, sneezing and sore throat. Respiratory: Positive for cough, shortness of breath and wheezing. Negative for chest tightness and stridor. Cardiovascular: Negative for chest pain, palpitations and leg swelling. Skin: Negative for rash. Allergic/Immunologic: Negative. Negative for environmental allergies, food allergies and immunocompromised state. Psychiatric/Behavioral: Negative for agitation, confusion, dysphoric mood and sleep disturbance. Objective There were no vitals taken for this visit. Physical Exam Constitutional: Appearance: Normal appearance. HENT: Head: Normocephalic and atraumatic. Eyes: Extraocular Movements: Extraocular movements intact. Conjunctiva/sclera: Conjunctivae normal. Pupils: Pupils are equal, round, and reactive to light. Pulmonary: Effort: Pulmonary effort is normal. Musculoskeletal: Cervical back: Normal range of motion. Skin: Findings: No rash. Neurological: Mental Status: He is alert and oriented to person, place, and time. Mental status is at baseline. Psychiatric: Mood and Affect: Mood normal. Behavior: Behavior normal. Thought Content: Thought content normal. Judgment: Judgment normal. Current Outpatient Medications Medication Sig Dispense Refill acetaminophen (Tylenol) 500 mg tablet Take 1 tablet (500 mg) by mouth every 6 hours if needed. atorvastatin (Lipitor) 20 mg tablet Take 1 tablet (20 mg) by mouth. cholecalciferol (Vitamin D-3) 50 mcg (2,000 unit) capsule Take 1 capsule (2,000 Units) by mouth. famotidine (Pepcid) 40 mg tablet Take 1 tablet (40 mg) by mouth once daily. finasteride (Proscar) 5 mg tablet Take 1 tablet (5 mg) by mouth once daily. fluticasone furoate-vilanteroL (Breo Ellipta) 200-25 mcg/dose inhaler Inhale 1 puff once daily. immune globulin, human, (Hizentra) subcutaneous infusion Inject 35 mL (7 g) under the skin 1 (one) time per week. Infuse via FREEDOM 60 pump subcutaneously into 2-3 sites over 60 minutes using f1200 tubing. Allow medication to reach room temperature prior to administration. Storage: Refrigerate. levothyroxine (Synthroid, Levoxyl) 75 mcg tablet Take 1 tablet (75 mcg) by mouth once daily. rivaroxaban (Xarelto) 20 mg tablet Take 1 tablet (20 mg) by mouth. sodium chloride 0.9 % nebulizer solution INHALE 1 VIAL BY MOUTH 3 TIMES DAILY No current facility-administered medications for this visit. Orders Placed This Encounter Procedures IgG Standing Status: Standing Number of Occurrences: 4 Standing Expiration Date: 02/12/2024 Order Specific Question: Release result to MyChart Answer: Immediate [1] Comprehensive metabolic panel Standing Status: Standing Number of Occurrences: 4 Standing Expiration Date: 08/11/2024 Order Specific Question: Release result to [facility] Answer: Immediate [1] Assessment/Plan CVID (common variable immunodeficiency) (CMS/HCC) He will continue his infusions. He is receiving Hizentra 7 grams weekly. He is tolerating it well. IgG level q 3 months with close monitoring of renal function. Overall he is much better with less infections. He does not have any side effects from his infusions. His case is incredibly complicated due to his bronchietasis. He recently underwent a bronchoscopy with clearing of the excessive secretions he develops in his airways. Currently no growth from bronchoscopy which is a great sign. Bronchiectasis (CMS/HCC) His case is incredibly complicated due to his bronchietasis. He recently underwent a bronchoscopy with clearing of the excessive secretions he develops in his airways. Currently no growth from bronchoscopy which is a great sign. He is treated by Dr. Solares. 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 Jay in the past caused decreased renal function Pseudomonas aeruginosa colonization No growth in current culture from bronchoscopy. I would like him to continue to follow with Dr. Quiroz so he can stay in the loop of his case. That way if he develops another infection ID can give their opinion. By signing my name below, I, Arabella Singh, Scribe, attest that this documentation has been prepared under the direction and in the presence of Sweetie Burr MD. All medical record entries made by the Scribe were at my direction and personally dictated by me. I have reviewed the chart and agree that the record accurately reflects my personal performance of the history, physical exam, discussion and plan. documented in this encounter [facility] Work Phone: 02-11-2023 Instructions Arabella Singh - 02/11/2023 10:30 AM EDT Continue Hizentra infusions. Obtain IgG level recheck every 3 months. I recommend followup with Dr. Quiroz, ID, and Dr. Solares, [employer]. documented in this encounter [facility] Work Phone: 02-02-2023 Note HNO ID: [id number] Author: Poli Campbell MD Service: ? Author Type: Physician Type: Progress Notes Filed: 02/02/2023 4:25 PM Note Text: PATIENT NAME: Rashad Phipps CLINIC NO.: [id number] ATTENDING PHYSICIAN: Poli Campbell MD DATE OF SERVICE: February 02, [address] Blaise Marie, thank you for referring Mr Rashad Phipps for an opinion regarding Possible CLL. 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 Nava as well as infectious disease, history of atrial fibrillation status post catheter ablation and basal cell skin cancer referred here for possible diagnosis of CLL. Patient does have chronic fatigue. Otherwise denies any increased lymph gland swelling. Denies any fever chills night sweats or abdominal pain. Patient states that his infections have significantly decreased since being on subcutaneous IVIG infusions under the direction of immunology. Due to persistent elevation in his white blood cell count patient underwent a flow cytometry which demonstrated a monoclonal B-cell population expressing CD19, dim CD20, light chain kappa restricted, CD23 and CD5 positive consistent with the phenotype of B-cell CLL. Of note the patient mostly has neutrophilia and lymphocytosis. Current Outpatient Medications Medication Sig immun glob G,IgG,/pro/IgA 0-50 (HIZENTRA SUBCUTANEOUS) Inject subcutaneously. acetaminophen (TYLENOL) 500 mg tablet Take 500 mg by mouth every 6 hours as needed. atorvastatin (LIPITOR) 20 mg tablet Take 20 mg by mouth. fluticasone-vilanterol (BREO ELLIPTA) 200-25 mcg/dose inhaler INHALE 1 PUFF INTO THE LUNGS EVERY DAY Cholecalciferol, Vitamin D3, 50 mcg (2,000 unit) cap Take 2,000 Units by mouth. famotidine (PEPCID) 40 mg tablet Take 1 tablet by mouth once daily. levothyroxine (SYNTHROID) 75 mcg tablet Take 1 tablet by mouth once daily. rivaroxaban (XARELTO) 20 mg tablet Take 20 mg by mouth. sodium chloride 0.9 % nebulizer solution INHALE 1 VIAL BY MOUTH 3 TIMES DAILY finasteride (PROSCAR) 5 mg tablet Take 1 tablet by mouth once daily. (Patient not taking: Reported on 02/02/2023) No current facility-administered medications for this visit. ALLERGIES Allergen Reactions Apixaban Itching Other reaction(s): Rash, itching Other reaction(s): Rash, itching Edoxaban Unknown Other reaction(s): Rash, itching Other reaction(s): Rash, itching Fish Containing Pro* Unknown Levofloxacin Unknown Penicillins Unknown Rivaroxaban Unknown Sulfa (Sulfonamide * Itching PAST MEDICAL HISTORY Diagnosis Date Bronchiectasis (HCC) Chronic renal impairment Mixed hyperlipidemia Secondary hypothyroidism History reviewed. No pertinent surgical history. History reviewed. No pertinent family history. Social History Tobacco Use Smoking status: Former Types: Cigarettes Passive exposure: Past Smokeless tobacco: Never Substance Use Topics Alcohol use: Not Currently Drug use: Never REVIEW OF SYSTEMS GENERAL: No weight loss, malaise or fevers. No night sweats. HEENT: Negative for headaches, No changes in hearing or vision, no nose bleeds or other nasal problems. RESPIRATORY: Negative for cough, wheezing and shortness of breath CARDIOVASCULAR: Negative for chest pain, leg swelling and palpitations GI: Negative for abdominal discomfort, blood in stools or black stools and change in bowel habits : Negative for dysuria, frequency and incontinence MUSCULOSKELETAL: Negative for joint pain or swelling, back pain, and muscle pain. SKIN: Negative for lesions, rash, and itching. HEMATOLOGY/LYMPHOLOGY Negative for prolonged bleeding, bruising easily, and swollen nodes. NEURO: Negative for numbness or tingling of hands/feet. No weakness. PHYSICAL EXAMINATION: BP 119/67 Pulse 73 Temp 36.3 ?C (97.3 ?F) (Temporal) Resp 18 Ht 180.3 cm (5' 11 ) Wt 68.8 kg (151 lb 9.6 oz) SpO2 97% BMI 21.14 kg/m? Wt 68.8 kg (151 lb 9.6 oz) BMI 21.14 kg/m2 Last 3 Encounter Wt Readings: Date: Wt: 02/02/2023 68.8 kg (151 lb 9.6 oz) General appearance:ECOG PERFORMANCE STATUS: 1- Restricted in physically strenuous activity. Carries out light duty. Patient in NAD. Skin: Skin color, texture, turgor normal. No rashes or lesions. Eyes: Anicteric sclera. Pupils are equally round and reactive to light. Extraocular movements are intact. Breast: No palpable breast masses. No nipple change or discharge. Lymph Nodes: No cervical, supraclavicular, axillary or inguinal adenopathy. Oropharynx: Lips, mucosa, and tongue normal. Back: No pain to percussion. Negative SLR test Lungs clear to auscultation, No wheezing or rhonchi Heart: RRR without mur (more content not included)... [facility] 02-02-2023 History of Present illness Narrative PATIENT NAME: Rashad Phipps CLINIC NO.: [id number] ATTENDING PHYSICIAN: Poli Campbell MD DATE OF SERVICE: February 02, [address] Blaise Marie, thank you for referring Mr Rashad Phipps for an opinion regarding Possible CLL. 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 Nava as well as infectious disease, history of atrial fibrillation status post catheter ablation and basal cell skin cancer referred here for possible diagnosis of CLL. Patient does have chronic fatigue. Otherwise denies any increased lymph gland swelling. Denies any fever chills night sweats or abdominal pain. Patient states that his infections have significantly decreased since being on subcutaneous IVIG infusions under the direction of immunology. Due to persistent elevation in his white blood cell count patient underwent a flow cytometry which demonstrated a monoclonal B-cell population expressing CD19, dim CD20, light chain kappa restricted, CD23 and CD5 positive consistent with the phenotype of B-cell CLL. Of note the patient mostly has neutrophilia and lymphocytosis. Current Outpatient Medications Medication Sig immun glob G,IgG,/pro/IgA 0-50 (HIZENTRA SUBCUTANEOUS) Inject subcutaneously. acetaminophen (TYLENOL) 500 mg tablet Take 500 mg by mouth every 6 hours as needed. atorvastatin (LIPITOR) 20 mg tablet Take 20 mg by mouth. fluticasone-vilanterol (BREO ELLIPTA) 200-25 mcg/dose inhaler INHALE 1 PUFF INTO THE LUNGS EVERY DAY Cholecalciferol, Vitamin D3, 50 mcg (2,000 unit) cap Take 2,000 Units by mouth. famotidine (PEPCID) 40 mg tablet Take 1 tablet by mouth once daily. levothyroxine (SYNTHROID) 75 mcg tablet Take 1 tablet by mouth once daily. rivaroxaban (XARELTO) 20 mg tablet Take 20 mg by mouth. sodium chloride 0.9 % nebulizer solution INHALE 1 VIAL BY MOUTH 3 TIMES DAILY finasteride (PROSCAR) 5 mg tablet Take 1 tablet by mouth once daily. (Patient not taking: Reported on 02/02/2023) No current facility-administered medications for this visit. ALLERGIES Allergen Reactions Apixaban Itching Other reaction(s): Rash, itching Other reaction(s): Rash, itching Edoxaban Unknown Other reaction(s): Rash, itching Other reaction(s): Rash, itching Fish Containing Pro* Unknown Levofloxacin Unknown Penicillins Unknown Rivaroxaban Unknown Sulfa (Sulfonamide * Itching PAST MEDICAL HISTORY Diagnosis Date Bronchiectasis (HCC) Chronic renal impairment Mixed hyperlipidemia Secondary hypothyroidism History reviewed. No pertinent surgical history. History reviewed. No pertinent family history. Social History Tobacco Use Smoking status: Former Types: Cigarettes Passive exposure: Past Smokeless tobacco: Never Substance Use Topics Alcohol use: Not Currently Drug use: Never REVIEW OF SYSTEMS GENERAL: No weight loss, malaise or fevers. No night sweats. HEENT: Negative for headaches, No changes in hearing or vision, no nose bleeds or other nasal problems. RESPIRATORY: Negative for cough, wheezing and shortness of breath CARDIOVASCULAR: Negative for chest pain, leg swelling and palpitations GI: Negative for abdominal discomfort, blood in stools or black stools and change in bowel habits : Negative for dysuria, frequency and incontinence MUSCULOSKELETAL: Negative for joint pain or swelling, back pain, and muscle pain. SKIN: Negative for lesions, rash, and itching. HEMATOLOGY/LYMPHOLOGY Negative for prolonged bleeding, bruising easily, and swollen nodes. NEURO: Negative for numbness or tingling of hands/feet. No weakness. PHYSICAL EXAMINATION: BP 119/67 Pulse 73 Temp 36.3 C (97.3 F) (Temporal) Resp 18 Ht 180.3 cm (5' 11 ) Wt 68.8 kg (151 lb 9.6 oz) SpO2 97% BMI 21.14 kg/m Wt 68.8 kg (151 lb 9.6 oz) BMI 21.14 kg/m2 Last 3 Encounter Wt Readings: Date: Wt: 02/02/2023 68.8 kg (151 lb 9.6 oz) General appearance:ECOG PERFORMANCE STATUS: 1- Restricted in physically strenuous activity. Carries out light duty. Patient in NAD. Skin: Skin color, texture, turgor normal. No rashes or lesions. Eyes: Anicteric sclera. Pupils are equally round and reactive to light. Extraocular movements are intact. Breast: No palpable breast masses. No nipple change or discharge. Lymph Nodes: No cervical, supraclavicular, axillary or inguinal adenopathy. Oropharynx: Lips, mucosa, and tongue normal. Back: No pain to percussion. Negative SLR test Lungs clear to auscultation, No wheezing or rhonchi Heart: RRR without murmur, gallop, or rubs. Abdomen soft, non-tender. No masses, organomegaly Extremities: No deformities. No edema Neuro: Gait and speech normal. Reflexes normal and symmetric. Muscular strength intact. Sensation grossly intact. Rectal: Deferred : Deferred LABS: BUN (mg/dL) Date Value 08/01/2018 17 Albumin (g/dL) Date Value 11/14/2017 3.7 WBC Date Value Ref Range Status 02/02/2023 24.43 (H) 3.70 - 11.00 k/uL Preliminary RBC Date Value Ref Range Status 02/02/2023 3.93 (L) 4.20 - 6.00 m/uL Preliminary Hemoglobin Date Value Ref Range Status 02/02/2023 11.6 (L) 13.0 - 17.0 g/dL Preliminary Hematocrit Date Value Ref Range Status 02/02/2023 36.3 (L) 39.0 - 51.0 % Preliminary MCV Date Value Ref Range Status 02/02/2023 92.4 80.0 - 100.0 fL Preliminary MCH Date Value Ref Range Status 02/02/2023 29.5 26.0 - 34.0 pg Preliminary MCHC Date Value Ref Range Status 02/02/2023 32.0 30.5 - 36.0 g/dL Preliminary RDW-CV Date Value Ref Range Status 02/02/2023 13.2 11.5 - 15.0 % Preliminary Platelet Count Date Value Ref Range Status 02/02/2023 222 150 - 400 k/uL Preliminary MPV Date Value Ref Range Status 02/02/2023 10.6 9.0 - 12.7 fL Preliminary PATH: IMAGING: ASSESSMENT AND PLAN: Rashad Phipps is a 82 year old year old male past medical history significant for BPH, 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 Patient does not necessarily meet the criteria for diagnosis of chronic lymphocytic leukemia. I reviewed the laboratory results and the implication of monoclonal B-cell lymphocytosis with patient and his . I stated that patients with monoclonal B-cell lymphocytosis especially with higher white blood cell count can eventually develop chronic lymphocytic leukemia and/or other lymphoproliferative disorders. At this point we can monitor the patient on a yearly basis. Patient will continue follow-up with pulmonary in regards to his bronchiectasis. Continue follow-up with cardiology in regards to his atrial fibrillation. Continue follow-up with Dr. Marie Dear Dr. Blaise Marie, thank you for allowing me to participate in Mr Rashad virk, if there are any questions or concerns please do not hesitate to contact me at the number below. Poli Cmapbell M.D. Hematology/Medical Oncology [facility] [phone] CC: Blaise Marie, DO documented in this encounter [facility] 08-06-2022 History of Present illness Narrative Patient is accompanied by his .Since last visit, 08/06/2022, patient states he had bronchoscopy Apr [address] Solares with mucus buildup in his lungs, which persists. He feels it is accumulating more daily and is worse on humid days. He will only push-mow his yard when humidity is below 50. About a month ago, he was mowing and had to stop 3 times but admits he was not aware of the humidity beforehand. He rested and was able to catch his breath. His states he has been compliant with nebulizer with salt water and flutter 3x a day. He does cough up sputum intermittently that is thicker in the mornings. He has used a vest in the past but did not like it.Patient states when he discontinued tobramycin, his renal levels normalized and his CKD resolved, so he does not have followup scheduledHe continues Xarelto 20 per classified ad taker but questions if this raises a bleeding risk. He is concerned due to intermittent nosebleeds. He uses Flonase daily.Patient has followup with Dr. Solares in Dec 2022.Patient states weekly infusions are going well and he denies any illnesses or infections.Patient admits to 15 lb weight loss after bronchoscopy and has not gained it back. Patient's notes he has a decreased appetite and often does not know what he wants to eat. Patient does not have an appointment scheduled with Dr. Quiroz, ID, yet. XK-Afgmjiqgko-[place] A Work Phone: 08-06-2022 History of Present illness Narrative Patient is accompanied by his .Since last visit, 08/06/2022, patient states he had bronchoscopy Apr [address] Solares with mucus buildup in his lungs, which persists. He feels it is accumulating more daily and is worse on humid days. He will only push-mow his yard when humidity is below 50. About a month ago, he was mowing and had to stop 3 times but admits he was not aware of the humidity beforehand. He rested and was able to catch his breath. His states he has been compliant with nebulizer with salt water and flutter 3x a day. He does cough up sputum intermittently that is thicker in the mornings. He has used a vest in the past but did not like it.Patient states when he discontinued tobramycin, his renal levels normalized and his CKD resolved, so he does not have followup scheduledHe continues Xarelto 20 per classified ad taker but questions if this raises a bleeding risk. He is concerned due to intermittent nosebleeds. He uses Flonase daily.Patient has followup with Dr. Solares in Dec 2022.Patient states weekly infusions are going well and he denies any illnesses or infections.Patient admits to 15 lb weight loss after bronchoscopy and has not gained it back. Patient's notes he has a decreased appetite and often does not know what he wants to eat. Patient does not have an appointment scheduled with Dr. Qiuroz, ID, yet. UD-Marafunlmc-Wqobvbbl 2100 DO Work Phone: 05-07-2022 History of Present illness Narrative Patient is at home and accompanied by his .Since last visit, 05/07/2022, patient states he feels good and has persistent cough but much milder than 3 months ago. He saw Dr. Quiroz 06/10/2022. Dr. Quiroz stopped tobramycin because it was resistant to the pseudomonas, per patient. Patient is asking if we received results of the bronchoscopy done by Dr. Solares in Apr 2022. Patient states he had repeat CBC 2 weeks later and white count dropped by 5 points so no other workup was required. He was given a 10 day course of Levaquin in May [address] Quiroz. states patient was prescribed regular saline neb solution 0.9 3x a day and flutter valve have per Dr. Solares.Patient also had a fall in May 2022 with a contusion. It was suspected this may have triggered his elevated white count. His ecchymosis has resolved but he has a persistent bicep lump that is decreasing.Patient reports hay fever and asthma Hx as a child, which affected him during ragweed season and when in his barn with animal/hay exposure. He had severe reaction to ragweed and Sx resolved since. He has been sneezing and experiencing rhinorrhea more attributed to the tree pollen and wonders if he may be redeveloping allergies. is asking if he should start fluticasone.He continues Hizentra infusions from [facility], which are going well with no SE. His states his dose was never increased in Apr 2022. QY-Iemyhllbqy-Jwuyvkdn [employer] DO Work Phone: 05-07-2022 History of Present illness Narrative Patient is at home and accompanied by his .Since last visit, 05/07/2022, patient states he feels good and has persistent cough but much milder than 3 months ago. He saw Dr. Quiroz 06/10/2022. Dr. Quiroz stopped tobramycin because it was resistant to the pseudomonas, per patient. Patient is asking if we received results of the bronchoscopy done by Dr. Solares in Apr 2022. Patient states he had repeat CBC 2 weeks later and white count dropped by 5 points so no other workup was required. He was given a 10 day course of Levaquin in May [address] Quiroz. states patient was prescribed regular saline neb solution 0.9 3x a day and flutter valve have per Dr. Solares.Patient also had a fall in May 2022 with a contusion. It was suspected this may have triggered his elevated white count. His ecchymosis has resolved but he has a persistent bicep lump that is decreasing.Patient reports hay fever and asthma Hx as a child, which affected him during ragweed season and when in his barn with animal/hay exposure. He had severe reaction to ragweed and Sx resolved since. He has been sneezing and experiencing rhinorrhea more attributed to the tree pollen and wonders if he may be redeveloping allergies. is asking if he should start fluticasone.He continues Hizentra infusions from [facility], which are going well with no SE. His states his dose was never increased in Apr 2022. MX-Mxaosaqbwm-Gidagwzd 2100 DO Work Phone: 10-25-2021 History of Present illness Narrative He is accompanied by his .Since last visit, 10/25/2021, patient denied infections prior to seeing Dr. Quiroz last month. Dr. Quiroz prescribed levofloxacin x10 days for an infection. He improved but had persistent fatigue, no strength and severe cough.His states since , he had pain in his right chest. He had a CT of chest ordered, which took a long time to get in. He reports the CT scan showed a dark area in right lung of unknown etiology or significance. He was referred for fluid removal from his chest (pleural effusion), but aborted the procedure because there was not enough fluid, per his . They have not received results of fluid cytology yet.A had persistent Sx and saw a supervisor aircraft cleaning at [facility], Dr. Rabia Solares, who performed bronchoscopy this past Tuesday. The bronchoscopy showed no growth or tumors. Patient notes improvement in his energy since his bronchoscopy but cough is the same as prior and productive. He was told mucus would persist and he was recommended clearing it as often as possible. He does have a flutter valve but admits they are not sure they are using it correctly.He continues Hizentra infusions, which are going well with no SE. He and his are unsure when his kidney function was last checked. Dr. Quiroz told him he would order a renal panel when he spoke to him last month. JP-Ykctraixky-Njrdirfe 2100 DO Work Phone: 10-25-2021 History of Present illness Narrative He is accompanied by his .Since last visit, 10/25/2021, patient denied infections prior to seeing Dr. Quiroz last month. Dr. Quiroz prescribed levofloxacin x10 days for an infection. He improved but had persistent fatigue, no strength and severe cough.His states since , he had pain in his right chest. He had a CT of chest ordered, which took a long time to get in. He reports the CT scan showed a dark area in right lung of unknown etiology or significance. He was referred for fluid removal from his chest (pleural effusion), but aborted the procedure because there was not enough fluid, per his . They have not received results of fluid cytology yet.A had persistent Sx and saw a supervisor aircraft cleaning at [facility], Dr. Rabia Solares, who performed bronchoscopy this past Tuesday. The bronchoscopy showed no growth or tumors. Patient notes improvement in his energy since his bronchoscopy but cough is the same as prior and productive. He was told mucus would persist and he was recommended clearing it as often as possible. He does have a flutter valve but admits they are not sure they are using it correctly.He continues Hizentra infusions, which are going well with no SE. He and his are unsure when his kidney function was last checked. Dr. Quiroz told him he would order a renal panel when he spoke to him last month. KF-Vxnnmsujro-[facility]xaa Work Phone: 06-11-2021 History of Present illness Narrative Some data reviewed and entered into a note opened on 06/11/2021 in preparation for ID clinic on 06/12/2021ati last evaluated 01/16/2021ati followed for:1. 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 Recurrent pseudomonas bronchitis/pneumonia3. Bronchiectasis4. Common variable immune deficiency/hypogammaglobulinemia5 . Kidney injury, improved after reducing aerosolized tobramycin to once daily (and after some reductions in IVIG dosing)ON 01/16/2021:Regarding Pseudomonas and Streptococcus pneumoniae colonization, bronchitis and intermittent recurrent pneumonia:The patient has been on tobramycin aerosols since November 2014.CT scan performed on 10/24/2015 showed decrease in bibasilar lung consolidation.Bronchiectasis was stableClinically stable and improved.Continues daily tobramycin aerosol on 2 weeks off 2 weeks07/19/2018 Pseudomonas susceptible to levofloxacin but intermediate susceptibility to julpvebgmh96/23/2020 Klebsiella pneumoniae susceptible to Cipro/levo, tobramycin and TMP-SMXTODAY 06/12/2021: -Infectious Disease-[facility] Bo Work Phone: 06-11-2021 History of Present illness Narrative Some data reviewed and entered into a note opened on 06/11/2021 in preparation for ID clinic on 06/12/2021ati last evaluated Juneati followed for:1. 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 Recurrent pseudomonas bronchitis/pneumonia3. Bronchiectasis4. Common variable immune deficiency/hypogammaglobulinemia5 . Kidney injury, improved after reducing aerosolized tobramycin to once daily (and after some reductions in IVIG dosing)Regarding Pseudomonas and Streptococcus pneumoniae colonization, bronchitis and intermittent recurrent pneumonia:The patient has been on tobramycin aerosols since November 2014.CT scan performed on 10/24/2015 showed decrease in bibasilar lung consolidation.Bronchiectasis was stableClinically stable and improved.Continues daily tobramycin aerosol on 2 weeks off 2 weeks07/19/2018 Pseudomonas susceptible to levofloxacin but intermediate susceptibility to bhpxcvrfcu97/23/2020 Klebsiella pneumoniae susceptible to Cipro/levo, tobramycin and TMP-SMXTODAY 03/19/2022 I spoke to the patient and his for 30 minutesThe patient reports having had increased cough and sputum production since 03/10/2022. Patient saw his PCP who has arranged for CT scan of the chest, sputum culture and oxygen monitoring. Patient has had no hemoptysis, fever, chills, rigors, headache, rash, or peripheral edema. Patient also having some pleuritic/chest pain with coughing. Has not had major decline over the last 9 days but has not rebounded. Seems to feel like he is about 75% his usual state.Discussed options today. Agree with CT scan sputum culture and follow-up. Since patient seems to be having a flare in bronchitis and or pneumonia it is reasonable to treat empirically based on previous cultures. In the past patient has responded to empiric levofloxacin which was covered Streptococcus pneumoniae and some of the Pseudomonas. Certainly will cover all prior Pseudomonas isolate that had been identified.Patient continues to use aerosolized tobramycin. On 16 days then off 16 days. Currently off 16 days. And refill pending. [facility] Work Phone: 05-15-2021 History of Present illness Narrative Since last visit, 05/15/2021, patient had a phone visit with Dr. Quiroz 07/09/2021 and he was happy with sputum culture results. Patient is asking if he should continue his tobramycin since there was no Pseudomonas in the culture. He has a virtual followup with Dr. Quiroz on 10/09/2021.Patient states yesterday his nebulizer compressor stopped working and he has 6 remaining vials to complete this course. He did not take tobramycin yesterday or today until he gets a new compressor.He denies any sinus infections and completing BID saline nasal lavages. He has intermittent rhinorrhea and PND he thought was due to the lavage because of continued drainage after rinsing. He has had 2 sinus surgeries and this also helps keep him clear.He tested positive to ragweed years ago. He wonders if he may have worsening or new allergies due to increased nose-blowing and cough productive of thick phlegm. He uses Flonase around mid November for his allergies, which does help his Sx. He does feel his allergies are weather related currently.? Hizentra infusions are going well with no SE. After 5 years, he has not had a problem and only new thing is having to refrigerate the Hizentra.His kidneys are stable and creatinine is mildly elevated, per patient., but he was told this was not a concern. US-Smxpcecxrl-Bzxpxlwo 2100 DO Work Phone: 11-09-2020 History of Present illness Narrative Since last visit, Nov 2020, he has been well, avoided COVID or any infections and is vaccinated.Hizentra infusions are going well well with no SE. After 5 years, he has not had a problem and only new thing is having to refrigerate the Hizentra.He continues on tobramycin 16 days on, 16 days [address] He saw Dr. Quiroz in January and he feels that his symptoms are under good control with the combination of the medication.Cough and mucus production is about the same or less. Overall his sputum has less color. He believes it is seasonal with less Sx in the summer and more in the winter.His grandson is at [employer] [facility] [employer] [facility] [employer]. He is studying medicine.Kidneys are stable. ZN-Xezyjhpclv-Islbhjlo 9553 DO Work Phone: 05-22-2020 History of Present illness Narrative He is accompanied by his .Since last visit, 05/22/2020, he has been well, avoided COVID or any infections and is vaccinated.Hizentra infusions are going well well with no SE. After 5 years, he has not had a problem and only new thing is having to refrigerate the Hizentra.He continues on tobramycin 16 days on, 16 days off. He has not seen Dr. Quiroz in 1.5 years and patient has not called him since he has not had a problem.Cough and mucus production is about the same. He believes it is seasonal with less Sx in the summer and more in the winter.Kidneys are stable. SO-Pqtvpuvoni-Crbrlawr 2100 DO Work Phone: 12-10-2018 History of Present illness Narrative Telephone visit due to patient's chronic immunosuppression and ongoing COVID-19 pandemicPatient has been followed in the infectious disease clinic for history of bronchiectasis, and common variable immune deficiency. Patient has not been seen December 2018. Chart and telephone updates afterward in February and January 2020. Patient was treated with a course of oral levofloxacin for flare and bronchitis.Today patient I spoke by telephone. He reports feeling well over the last year. Continues receiving IVIG for his CVID. He also notes that he feels that his sputum has been less copious and wider than usual. He had a good summer. He has stayed active and independent in his activities of daily living.He has had no hemoptysis, refractory cough, headache, sinus pressure, shortness of breath, chest pain, orthopnea, PND, tinnitus.Continues taking daily tobramycin on 2 weeks and off 2 weeks.Patient reports following up with nephrology and his PCP and no report of changing CKD.06/05/2020 laboratory studies: White blood cell count stable, slightly elevated at 16,000, serum creatinine stable slightly elevated at 1.44, GFR 47Prior cultures:May 2017 patient grew penicillin and ceftriaxone resistant pneumococcus. Pneumococcus was susceptible to vancomycin and levofloxacin.July 2018 sputum grew Pseudomonas susceptible to cefepime, ciprofloxacin and levofloxacin. Intermediately susceptible to tobramycinJanuary 2020 sputum grew Klebsiella pneumoniae susceptible to Unasyn, ceftriaxone, Cipro, levo, tobramycin and ZosynI did review previous cultures MG-Infectious Disease-[place] Work Phone: Chief complaint Narrative - Reported An interactive audio and video telecommunication system which permits real time communications between the patient (at the originating site) and provider (at the distant site) was utilized to provide this telehealth service.Follow up WG-Mvumqiyvet-Lvgspnwz 2100 DO Work Phone: Evaluation note Diagnosis Monoclonal B-cell lymphocytosis- Primary Lymphocytosis (symptomatic) CLL (chronic lymphocytic leukemia) (HCC) Chronic lymphoid leukemia, without mention of having achieved remission 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) Immunodeficiency with predominant T-cell defect, unspecified [facility] Diagnosis Bronchiectasis without complication (CMS/HCC)- Primary 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* Diagnosis CVID (common variable immunodeficiency) ([facility])- Primary Common variable immunodeficiency documented in this encounter [facility] Work Phone: Evaluation note* Diagnosis Mixed hyperlipidemia [facility]ructionsNot on filedocumented in this encounter [facility]InstructionsNot on filedocumented in this encounter [facility] SystemInstructionsNot on filedocumented in this encounter [facility] SystemInstructionsNot on filedocumented in this encounter [facility] SystemReason for referral (narrative)* Consultation (Routine) - Authorized Specialty Diagnoses / Procedures Referred By Contac t Referred To Contact Infectious Diseases Diagnoses Bronchiectasis without complication (CMS/HCC) Procedures Follow Up In Infectious Disease Sweetie Burr MD [address] [facility], [place] [phone] Referral ID Status Reason Start Date Expiration Date V isits Requested Visits Authorized [id number] Authorized 02/11/2023 02/11/2024 1 1 [facility] Work Phone: Reason for visit Narrative* Consultation (Routine) - Authorized Specialty Diagnoses / Procedures Referred By Vineet miner Referred To Contact Infectious Diseases Diagnoses Bronchiectasis without complication (CMS/HCC) Procedures Follow Up In Infectious Disease Sweetie Burr MD [address] [facility], [place] [phone] Referral ID Status Reason Start Date Expiration Date V isits Requested Visits Authorized [id number] Authorized 02/11/2023 02/11/2024 1 1 [facility] Work Phone: Family History No Family History Records Found Grandmother Name Dates Details Family history of cardiac di sorder(V17.49, Z82.49) Status:Active Grandfather Name Dates Details Family history of cardiac di sorder(V17.49, Z82.49) Status:Active Mother Name Dates Details Family history of malignant neoplasm(V16.9, Z80.9) Status:Active Father Name Dates Details Family history of malignant neoplasm(V16.9, Z80.9) Status:Active Grandmother Name Dates Details Family history of cardiac di sorder(V17.49, Z82.49) Status:Active Grandfather Name Dates Details Family history of cardiac di sorder(V17.49, Z82.49) Status:Active Mother Name Dates Details Family history of malignant neoplasm(V16.9, Z80.9) Status:Active Father Name Dates Details Family history of malignant neoplasm(V16.9, Z80.9) Status:Active Grandmother Name Dates Details Family history of cardiac di sorder(V17.49, Z82.49) Status:Active Grandfather Name Dates Details Family history of cardiac di sorder(V17.49, Z82.49) Status:Active Mother Name Dates Details Family history of malignant neoplasm(V16.9, Z80.9) Status:Active Father Name Dates Details Family history of malignant neoplasm(V16.9, Z80.9) Status:Active Grandmother Name Dates Details Family history of cardiac di sorder(V17.49, Z82.49) Status:Active Grandfather Name Dates Details Family history of cardiac di sorder(V17.49, Z82.49) Status:Active Mother Name Dates Details Family history of malignant neoplasm(V16.9, Z80.9) Status:Active Father Name Dates Details Family history of malignant neoplasm(V16.9, Z80.9) Status:Active Grandmother Name Dates Details Family history of cardiac di sorder(V17.49, Z82.49) Status:Active Grandfather Name Dates Details Family history of cardiac di sorder(V17.49, Z82.49) Status:Active Mother Name Dates Details Family history of malignant neoplasm(V16.9, Z80.9) Status:Active Father Name Dates Details Family history of malignant neoplasm(V16.9, Z80.9) Status:Active Unknown Family Member Name Dates Details Family history of malignant neoplasm: Mother, Father(V16.9, Z80.9) Status:Active Family history of cardiac di sorder: Grandmother, Grandfather(V17.49, Z82.49) Status:Active Unknown Family Member Name Dates Details Family history of malignant neoplasm: Mother, Father(V16.9, Z80.9) Status:Active Family history of cardiac di sorder: Grandmother, Grandfather(V17.49, Z82.49) Status:Active Unknown Family Member Name Dates Details Family history of malignant neoplasm: Mother, Father(V16.9, Z80.9) Status:Active Family history of cardiac di sorder: Grandmother, Grandfather(V17.49, Z82.49) Status:Active Unknown Family Member Name Dates Details Family history of malignant neoplasm: Mother, Father(V16.9, Z80.9) Status:Active Family history of cardiac di sorder: Grandmother, Grandfather(V17.49, Z82.49) Status:Active Unknown Family Member Name Dates Details Family history of malignant neoplasm: Mother, Father(V16.9, Z80.9) Status:Active Family history of cardiac di sorder: Grandmother, Grandfather(V17.49, Z82.49) Status:Active Unknown Family Member Name Dates Details Family history of malignant neoplasm: Mother, Father(V16.9, Z80.9) Status:Active Family history of cardiac di sorder: Grandmother, Grandfather(V17.49, Z82.49) Status:Active Unknown Family Member Name Dates Details Family history of malignant neoplasm: Mother, Father(V16.9, Z80.9) Status:Active Family history of cardiac di sorder: Grandmother, Grandfather(V17.49, Z82.49) Status:Active Unknown Family Member Name Dates Details Family history of malignant neoplasm: Mother, Father(V16.9, Z80.9) Status:Active Family history of cardiac di sorder: Grandmother, Grandfather(V17.49, Z82.49) Status:Active Unknown Family Member Name Dates Details Family history of malignant neoplasm: Mother, Father(V16.9, Z80.9) Status:Active Family history of cardiac di sorder: Grandmother, Grandfather(V17.49, Z82.49) Status:Active Unknown Family Member Name Dates Details Family history of malignant neoplasm: Mother, Father(V16.9, Z80.9) Status:Active Family history of cardiac di sorder: Grandmother, Grandfather(V17.49, Z82.49) Status:Active Unknown Family Member Name Dates Details Family history of malignant neoplasm: Mother, Father(V16.9, Z80.9) Status:Active Family history of cardiac di sorder: Grandmother, Grandfather(V17.49, Z82.49) Status:Active Unknown Family Member Name Dates Details Family history of malignant neoplasm: Mother, Father(V16.9, Z80.9) Status:Active Family history of cardiac di sorder: Grandmother, Grandfather(V17.49, Z82.49) Status:Active Unknown Family Member Name Dates Details Family history of malignant neoplasm: Mother, Father(V16.9, Z80.9) Status:Active Family history of cardiac di sorder: Grandmother, Grandfather(V17.49, Z82.49) Status:Active Unknown Family Member Name Dates Details Family history of malignant neoplasm: Mother, Father(V16.9, Z80.9) Status:Active Family history of cardiac di sorder: Grandmother, Grandfather(V17.49, Z82.49) Status:Active Unknown Family Member Name Dates Details Family history of malignant neoplasm: Mother, Father(V16.9, Z80.9) Status:Active Family history of cardiac di sorder: Grandmother, Grandfather(V17.49, Z82.49) Status:Active Unknown Family Member Name Dates Details Family history of malignant neoplasm: Mother, Father(V16.9, Z80.9) Status:Active Family history of cardiac di sorder: Grandmother, Grandfather(V17.49, Z82.49) Status:Active Unknown Family Member Name Dates Details Family history of malignant neoplasm: Mother, Father(V16.9, Z80.9) Status:Active Family history of cardiac di sorder: Grandmother, Grandfather(V17.49, Z82.49) Status:Active Unknown Family Member Name Dates Details Family history of malignant neoplasm: Mother, Father(V16.9, Z80.9) Status:Active Family history of cardiac di sorder: Grandmother, Grandfather(V17.49, Z82.49) Status:Active Unknown Family Member Name Dates Details Family history of malignant neoplasm: Mother, Father(V16.9, Z80.9) Status:Active Family history of cardiac di sorder: Grandmother, Grandfather(V17.49, Z82.49) Status:Active Unknown Family Member Name Dates Details Family history of malignant neoplasm: Mother, Father(V16.9, Z80.9) Status:Active Family history of cardiac di sorder: Grandmother, Grandfather(V17.49, Z82.49) Status:Active Chief Complaint FUV for CVID* A telephone visit (audio only) between the patient (at the originating site) and the provider (at the distant site) was utilized to provide this telehealth service. * Verbal consent was requested and obtained from RASHAD PHIPPS on this date, 01/16/2021 11:00 AM , for a telehealth visit. * Telephone visit due to patient's ongoing immunosuppression and COVID-19 pandemic * A telephone visit (audio only) between the patient (at the originating site) and the provider (at the distant site) was utilized to provide this telehealth service. * Verbal consent was requested and obtained from RASAHD PHIPPS on this date, 06/12/2021 09:40 AM , for a telehealth visit. * Scheduled follow-up. * Telephone assessment due to distance to travel and ongoing COVID-19 pandemic in an immunocompromised patient * Patient followed for recurrent bronchitis and pneumonia with Pseudomonas aeruginosa and Streptococcus pneumoniae a in the setting of chronic bronchiectasis and common variable immune deficiency. Co-managing with allergy and immunology. * Patient has been on daily tobramycin aerosol. Cycles on 16 days and then off 16 days based on supply. Recall that patient has some renal insufficiency when taking twice daily aerosolized tobramycin. Single daily dosing tobramycin x16 days has been helpful. * Patient last evaluated in January 2021 * Again today 06/12/2021 patient reports feeling generally well. No hemoptysis. Stable small amount of sputum. Expectorate sputum at different times during the day. Feels quite adequate and independent in activities of daily living. Continues home Hizentra (subcutaneous immunoglobulin) which she administers every Tuesday (4 shots in the abdominal area. Reports no complications or signs of localized infection. * In addition patient has had no new symptoms. Patient denies fever, chills, rigors, headache, additional shortness of breath, PND, orthopnea, rash, swollen joints or confusion. Patient follows with his primary care physician. Patient has not seen his podiatry teacher recently. Last serum creatinine was 1.43 and stable Followup visit for CVIDFollow up* A telephone visit (audio only) between the patient (at the originating site) and the provider (at the distant site) was utilized to provide this telehealth service. * Verbal consent was requested and obtained from RASHAD PHIPPS on this date, 03/19/2022 11:00 AM , for a telehealth visit. * Telephone visit due to travel distance and ongoing COVID-19 pandemic in a patient with chronic immunosuppression * Patient was last evaluated June 2021 Followup visit for CVIDFollowup visit for CVID* A telephone visit (audio only) between the patient (at the originating site) and the provider (at the distant site) was utilized to provide this telehealth service. * Verbal consent was requested and obtained from RASHAD PHIPPS on this date, 08/06/2022 10:15 AM , for a telehealth visit. * Followup visit for CVID * A telephone visit (audio only) between the patient (at the originating site) and the provider (at the distant site) was utilized to provide this telehealth service. * Verbal consent was requested and obtained from RASHAD PHIPPS on this date, 08/06/2022 10:15 AM , for a telehealth visit. * Followup visit for CVID Followup visit for CVID and asthmaFollowup visit for CVID and asthma Summary Purpose Advance Directives No Advanced Directives Records FoundLatest Code Status on File Code Status Date Activated Date Inactivated Comments Full Code 03/17/2023 4:34 PM 03/20/2023 4:36 PM Additional Source Comments (unrecognized sect ion and content) No Status Records FoundNo Status Records FoundNo Status Records FoundNo Status Records FoundNo Status Records FoundNo Status Records FoundNo Status Records FoundNo Status Records FoundNo Status Records Found INFORMATION SOURCE (unrecogn ized section and content) DATE CREATED AUTHOR 10/01/2021 [facility] DATE CREATED AUTHOR AUTHOR'S ORGANIZ ATION 06/21/2022 [facility] DATE CREATED AUTHOR AUTHOR'S ORGANIZ ATION 11/13/2022 [facility] DATE CREATED AUTHOR AUTHOR'S ORGANIZ ATION 11/17/2022 [facility] DATE CREATED AUTHOR AUTHOR'S ORGANIZ ATION 02/04/2023 [facility] DATE CREATED AUTHOR AUTHOR'S ORGANIZ ATION 05/26/2023 [facility] DATE CREATED AUTHOR AUTHOR'S ORGANIZ ATION 05/26/2023 [facility] DATE CREATED AUTHOR AUTHOR'S ORGANIZ ATION 06/15/2023 [facility] DATE CREATED AUTHOR AUTHOR'S ORGANIZ ATION 07/05/2023 [facility] Source Comments (unrecognize d section and content) In the event this informatio n is protected by the Federal Confidentiality of Alcohol and Drug Abuse Patient Records regulations: The Federal rules restrict any use of the information to criminally investigate or prosecute any alcohol or drug abuse patient.[facility] Reason for Visit (unrecogniz ed section and content) Reason Comments Leukemia New patient consulta tion Reason Comments Immunodeficiency Recurrent Pneumonia Reason Comments Med Refill Reason Comments Hypertension Hyperlipidemia Reason Comments Follow-up Blood work Care Teams (unrecognized sec tion and content) Mult[employer] Authoring Specialist Relationship Specialty Start Date End Date Blaise Marie [address] [place] [address] PCP - General Internal Medicine 01/26/23 Multimedia Authoring Specialist Relationship Specialty Start Date End Date Blaise Marie DO [address] [place] [address] PCP - General 04/12/16 Mult[employer] Authoring Specialist Relationship Specialty Start Date End Date Blaise Marie DO [address] [place] [address] PCP - General Internal Medicine 12/20/16 Mult[employer] Authoring Specialist Relationship Specialty Start Date End Date Blaise Marie DO [address] [place] [address] PCP - General 04/12/16 Multimedia Authoring Specialist Relationship Specialty Start Date End Date Blaise Marie DO [address] [place] [address] PCP - General Internal Medicine 12/20/16 Mult[employer] Authoring Specialist Relationship Specialty Start Date End Date Blaise Marie DO [address] [place] [address] PCP - General Internal Medicine 12/20/16 Multimedia Authoring Specialist Relationship Specialty Start Date End Date Blaise Marie DO [address] [place] [address] PCP - General Internal Medicine 12/20/16 Multimedia Authoring Specialist Relationship Specialty Start Date End Date Blaise Marie, [address] [place] [address] PCP - General 04/12/16 FOR RECORDS PERTAINING TO PATIENTS WHO ARE OR HAVE BEEN ENROLLED IN A CHEMICAL DEPENDENCY/SUBSTANCEABUSE PROGRAM, SOME INFORMATION MAY BE OMITTED. This clinical summary was aggregated from multiple sources. Caution should be exercised in using it in the provision of clinical care. This summary normalizes information from multiple sources, and as a consequence, information in this document may materially change the coding, format and clinical context of patient data. In addition, data may be omitted in some cases. CLINICAL DECISIONS SHOULD BE BASED ON THE PRIMARY CLINICAL RECORDS. [facility] [employer] [facility]. provides no warranty or guarantee of the accuracy or completeness of information in this document.
[2023-07-08 14:00] LABS: Prothrombin Time 12.6 sec (9.0-11.6)
[2023-07-08 15:01] LABS: Partial Thromboplastin Time 50.9 sec (22.3-36.2)
== END 2023-07-08 12:28 | disposition home or self-care (01) ==
LOC: PST 12:28
PROVIDERS: PCP Internal Medicine; Visit Provider Internal Medicine
DX: Z01.812 Encounter for preprocedural laboratory examination (principal); J47.9 Bronchiectasis, uncomplicated; Z01.810 Encounter for preprocedural cardiovascular examination
CPT/HCPCS: 80048; 85610; 85730; 93005

== ENCOUNTER 2023-07-12 11:28 | Day surgery (SDC) | payer MEDICARE, OTHER, SELFPAY ==
[2023-07-08 13:08] VITALS: BP 96/52; PULSE 77; TEMP 36.2; O2SAT 92; BMI 20.8
[2023-07-12] VITALS (17 sets, daily range): BP systolic 82–126; BP diastolic 49–87; PULSE 78–98; TEMP 36.1–36.5; O2SAT 91–100; BMI 20.2
[2023-07-12] MEDS: LACTATED RINGER'S SOLUTION 1,000 ML 50 ML IV ×2 (11:55→13:52)
[2023-07-12] MEDS: LIDOCAINE HCL 1% 100 MG/10 ML MDV INJ (12:52)
[2023-07-12] MEDS: GUAIFENESIN 200 MG/DEXTROMETHORPHAN 20 MG 10 ML UNIT DOSE CUP PO (13:33)
[2023-07-12] MEDS: FENTANYL CITRATE/PF 100 MCG/2 ML VIAL 50 MCG IV (13:47)
--- NOTE | 2023-07-12 13:53 | PC.NURSE ---
07/12/2023 (1333) Patient continues to cough. Patient unable to expectorate secretions. Medicated with cough syrup as ordered. 1340- Patient placed on humidified nasal cannula at 6l/min as ordered. (1347) Patient continues to cough. Medicated with Fentanyl as ordered per Anesthesia. O2 continues at 6l/min humidified air via nc.
--- NOTE | 2023-07-12 17:53 | W.PM.PROCNOT ---
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 Diffuse mucus plugging encountered in all bronchopulmonary segments 2. Inflammatory mucosal changes 3. No endobronchial lesions Anesthesia 1. General anesthesia - please see their records 2. Lidocaine 1% - 5mL Specimens BAL of lingula of left upper lobe Estimated blood loss None Complications None immediately following the procedure [employer] Flip Posadas S IV Description Informed consent was obtained after risks, benefits, and alternatives were discussed with the patient.? Time out was initiated to confirm the correct patient, site, and procedure with all present voicing in the affirmative. Patient was brought to the operating room suite where noninvasive monitoring was utilized.? Sedation & anesthesia were administered by the anesthesia department-please refer to their records for further information.? Tape was placed over the patient's eyes to prevent spillage of secretions.? A 7.5 endotracheal tube was placed by anesthesia. Due to the endotracheal tube, the larynx, vocal cords, and proximal trachea were unable to be examined. The distal trachea was visualized without any gross tracheal lesions. A moderate amount of secretions layering across the main bronchi was encountered upon approaching the main khanh. The secretions were cleared and then 5mL of 1% lidocaine were instilled topically to the main khanh.? The main khanh was sharp without splaying or evidence of underlying mass. There was diffuse mucus plugging among all 18 bronchopulmonary segments (right and left lungs). Lavage was performed of each individual segment and down to the subsegments and beyond as able. I have performed bronchoscopies on this patient before, and this was the worst mucus plugging I have encountered from this patient. After the mucus plugs were cleared, I was able to evaluate each individual bronchopulmonary segment. Mild-moderate inflammatory changes of the bronchial mucosa were seen, but no endobronchial lesions were encountered. Next, a BAL was obtained from the lingula for culture. Once adequate sample was obtained, the trap was removed, and further lavage of the bronchopulmonary segments was once again performed. The bronchoscope was occluded once with thick secretions which required me to pull out and flush the channel. The segments were further cleared until all large plugs were removed and airways remained fairly patent as far as I could see with the scope. The bronchoscope was withdrawn.? Patient tolerated procedure well. Patient's was updated on the findings. Surgeon: Chance Solares Condition: stable Disposition: same day
== END 2023-07-12 15:10 | disposition home or self-care (01) ==
PROVIDERS: PCP Internal Medicine; Visit Provider Internal Medicine
PROC: (CPT 31624; principal; 2023-07-12 12:35)
DX: J47.9 Bronchiectasis, uncomplicated (principal); Z79.01 Long term (current) use of anticoagulants; N18.9 Chronic kidney disease, unspecified; R53.83 Other fatigue; R05.9 Cough, unspecified; Z87.891 Personal history of nicotine dependence; N40.0 Benign prostatic hyperplasia without lower urinary tract symptoms; K21.9 Gastro-esophageal reflux disease without esophagitis; I48.0 Paroxysmal atrial fibrillation; C91.10 Chronic lymphocytic leukemia of B-cell type not having achieved remission; R91.8 Other nonspecific abnormal finding of lung field; Z87.01 Personal history of pneumonia (recurrent); Z85.820 Personal history of malignant melanoma of skin; J96.11 Chronic respiratory failure with hypoxia; D83.9 Common variable immunodeficiency, unspecified; Z22.39 Carrier of other specified bacterial diseases
CPT/HCPCS: 31624; 36415; 87070; 87102; 87116; 87150; 87186; 87205; 87206; 99999; J1094; J2704

== ENCOUNTER 2023-11-14 10:57 | Outpatient (OUT) | payer MEDICARE, OTHER, SELFPAY ==
--- OUTSIDE RECORDS SUMMARY | 2023-11-14 11:08 | XMS_ITS | CCD ---
Author Organization [facility] Care Team Providers Care It Consulting Manager Name Role Phone Rodriguez Quiroz Unavailable Unavailable Sweetie Burr Unavailable Unavailable Blaise Marie Unavailable Unavailable Brenda Oneal Unavailable Unavailable Blaise Marie Unavailable Unavailable Unavailable SAMSA ., RABIA Admitting Unavailable SAMSA ., RABIA Attending Unavailable CYNTHIA, DR WELSH Primary Care Unavailable SAMSA ., RABIA Consulting Unavailable SAMSA ., RABIA Admitting Unavailable SAMSA ., RABIA Attending Unavailable CYNTHIA, DR WELSH Primary Care Unavailable GILSA ., RABIA Consulting Unavailable IDALIA BELLA Consulting Unavailable TRINI II, YASMIN Consulting Unavailable Yuiva, Dr. Blaise Mcmahan Primary Care Unavaila ble Cynthia, Dr. Blaise Mcmahan Referring Unavaila MD SWEETIE Cowan Attending Unavailable Yuhas, Dr. Blaise Mcmahan Primary Care Unavaila ble Cynthia, Dr. Blaise Mcmahan Referring Unavaila MD SWEETIE Cowan Attending Unavailable Yuharachael, Dr. Blaise Mcmahan Primary Care Unavaila ble Cynthia, Dr. Blaise Mcmahan Referring Unavaila ble Jose, Dr. Rodriguez Dominguez Attending Unav ailable Cynthia, Dr. Blaise Mcmahan Referring Unavaila ble Cynthia, Dr. Blaise Mcmahan Primary Care Unavaila MD SWEETIE Cowan Attending Unavailable Blaise Marie Primary Care Provider BLAISE MARIE Referring Unavailable BLAISE MARIE Primary Care Unavailable POLI CAMPBELL Attending Unavailable BLAISE MARIE Primary Care Unavailable Blaise Marie DO Primary Care Provider Blaise Marie DO Primary Care Provider [phone] PONCHOS, BLAISE L Attending Unavailable YUHAS, BLAISE L Referring Unavailable YUHAS, BLAISE L Primary Care Unavailable YUHAS, BLAISE L Referring Unavailable YUHAS, BLAISE L Primary Care Unavailable YUHAS, BLAISE L Attending Unavailable YUHAS, BLAISE L Referring Unavailable YUHAS, BLAISE L Primary Care Unavailable SHANI BIRMINGHAM Attending Unavailable YUHAS, BLAISE L Referring Unavailable YUHAS, BLAISE L Primary Care Unavailable YUHAS, BLAISE L Attending Unavailable YUHAS, BLAISE L Referring Unavailable YUHAS, BLAISE L Primary Care Unavailable YUHAS, BLAISE L Referring Unavailable YUHAS, BLAISE L Primary Care Unavailable YUHAS, BLAISE L Referring Unavailable YUHAS, BLAISE L Primary Care Unavailable LENOSWEETIE VACA Referring Unavailable YUHAS, BLAISE L Primary Care Unavailable LENOSWEETIE Referring Unavailable YUHAS, BLAISE L Primary Care Unavailable SAMSA, RABIA P Referring Unavailable YUHAS, BLAISE L Primary Care Unavailable SAMSA, RABIA P Referring Unavailable YUHAS, BLAISE L Primary Care Unavailable ALEXANDER ADAMSON Attending Unavailable YUHAS, BLAISE L Referring Unavailable YUHAS, BLAISE L Primary Care Unavailable LENOSWEETIE VACA Referring Unavailable YUHAS, BLAISE Beck Primary Care Unavailable YUHAS, BLAISE Beck Referring Unavailable YUHAS, BLAISE Beck Primary Care Unavailable LENOSWEETIE VACA Referring Unavailable YUHAS, BLAISE Beck Primary Care Unavailable SWEETIE BURR Attending Unavailable YUHAS, BLAISE HUMPHREYARD Primary Care Unavailable RODRIGUEZ QUIROZ Attending Unavailable SHAWN QUIROZ Referring Unavailable YUHAS, BLAISE BARTOLO Primary Care Unavailable LENOSWEETIE VACA Attending Unavailable YUHAS, BLAISE BARTOLO Primary Care Unavailable LENOSWEETIE VACA Attending Unavailable YUHAS, BLAISE BARTOLO Primary Care Unavailable LENOSWEETIE VACA Attending Unavailable YUHAS, BLAISE BARTOLO Primary Care Unavailable RODRIGUEZ QUIROZ Attending Unavailable YUHAS, BLAISE BARTOLO Primary Care Unavailable Allergies Allergy Classification Reported Allergen(s) Allergy Type Date of Onset Reaction(s) Facility Fish (1 source) fish, unspecified Food Allergy Bill Mendes 2100 DO Work Phone: Penicillins (antibiotic) (1 source) Penicillins; Translations: [Penicillins] Drug Allergy Bill Yousifke 2100 DO Work Phone: rivaroxaban (1 source) rivaroxaban; Translations: [Xarelto TABS] [facility] Work Phone: Sulfonamides (antibiotic) (1 source) Sulfonamides (Antibiotic); Translations: [Sulfa Drugs] Drug Allergy Rash [facility] 2100 DO Work Phone: (20 sources) fish, unspecified allergy to substance [facility] Work Phone: (20 sources) Penicillins; Translations: [Penicillins] drug allergy 7 [facility] 3 Repository (17 sources) rivaroxaban; Translations: [Xarelto TABS] Drug Allergy 6 Unknown [facility] (20 sources) Sulfonamides (Antibiotic); Translations: [Sulfa Drugs] drug allergy Rash [facility] Work Phone: (5 sources) apixaban; Translations: [APIXABAN] Drug Allergy 6 [facility] Repository (5 sources) edoxaban; Translations: [EDOXABAN] Drug Allergy 6 [facility] Repository (1 source) Fish derivative Drug allergy (disorder) [facility] Repository (1 source) Penicillin Drug Allergy [facility] Repository (1 source) Sulfonamides (Antibiotic) Drug allergy (disorder) [facility] Repository (9 sources) apixaban Drug Allergy 6 Itching [facility] (9 sources) edoxaban Drug Allergy 6 Unknown [facility] (5 sources) Fish; Translations: [FISH CONTAINING PRODUCTS] Drug Allergy 3 Unknown [facility] (4 sources) levoFLOXacin; Translations: [LEVOFLOXACIN] Drug Allergy 3 Unknown [facility] (4 sources) Penicillins Drug Allergy 7 [facility] (13 sources) Sulfonamides (Antibiotic); Translations: [SULFA (SULFONAMIDE ANTIBIOTICS)] Drug Allergy 7 Itching, Rash [facility] (1 source) rivaroxaban; Translations: [RIVAROXABAN] Drug Allergy 6 [facility] 3 Repository Medications Current Medications Medication Drug [...] Tablet Quantity: 0 Refills: 0 Ordered: 16-Jun-2018 Sweetie Burr MD Start : 16-Jun-2018 Active Atorvastatin Carmelo cium [...] 1 tablet by pb th once daily. IMMUN GLOB G,IGG,/PRO/IGA 0-50 (HIZENTRA [...] Tablet Quantity: 0 Refills: 0 Ordered: 16-Jun-2018 Sweetie Burr MD Start : 16-Jun-2018 Active Comment on above: Take 1 tablet by pb th once daily. rivaroxaban 20 mg oral tablet [...] Comment on above: INHALE 1 VIAL BY [facility] 3 TIMES DAILY 30 actuat umeclidinium 0.0625 mg/actuat / vilanterol 0.025 mg/actuat dry powder inhaler (4 sources) Anticholinergic, beta2-Adrenergic Agonist Start: take 1 puff(s) by inhalation in the morning umeclidinium-vilante roL (ANORO ELLIPTA) 62.5-25 mcg/actuation blister with device Indications: Chronic obstructive pulmonary disease, unspecified COPD type ([facility]) Inhale 1 puff in the morning. 90 [...] day. 0 12/23/2017 02/11/2023 Discontinued (Therapy completed) [id number] 0.3 ml EPINEPHrine 1 mg/ml auto-injector (6 [...] THEN 14 DAYS OFF - REFILLS CALL: [phone] Quantity: 16 Refills: 12 Ordered: 19-Mar-2022 Rodriguez Quiroz MD Start : 17-Dec-2020 Active YES, OK TO DISPENSE 16 AMPULES Start: 06-02-2015 Tobramycin 300 MG/5ML Inhalation Nebulization Solution INHALE THE CONTENTS OF 1 AMPULE VIA NEBULIZER DAILY FOR 14 DAYS ON, THEN 14 DAYS OFF - REFILLS CALL: [phone] Quantity: 14 Refills: 6 Ordered: 15-Apr-2020 Rodriguez [...] of unspecified malignant neoplasm] Episodic Cardiac dysrhythmias (18 sources) Unspecified atrial fibrillation; Translations: [Paroxysmal atrial [...] 3 02-02-2023 Chronic Disorders of lipid metabolism (14 sources) Hyperlipidemia; Translations: [Hyperlipidemia, unspecified] Onset: 1 02-10-2023 Chronic Esophageal disorders (10 sources) Gastro-esophageal reflux disease without esophagitis; Translations: [Gastric reflux] Onset: 7 02-10-2023 Chronic Essential hypertension (1 source) Hypertensive disorder Onset: 4 Chronic Fluid and electrolyte disorders (8 sources) Acute hyponatremia; Translations: [Hypo-osmolality and hyponatremia] Onset: 3 03-18-2023 Episodic Hyperplasia of prostate (10 sources) Benign prostatic hyperplasia without lower urinary [...] [Common variable immunodeficiency] Onset: 0 02-02-2023 Chronic Immunizations and screening for infectious disease (20 sources) Infectious disease carrier; Translations: [Carrier or suspected carrier of other specified bacterial diseases] Onset: 3 02-15-2023 Episodic Leukemias (13 sources) Chronic lymphoid leukemia, disease; 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] Onset: 3 02-02-2023 Chronic Osteoarthritis (8 sources) Arthritis; Translations: [Unspecified osteoarthritis, unspecified site] Onset: 7 02-10-2023 Chronic Other aftercare (1 source) alf (current) use of anticoagulants; Translations: [[facility] CURRNT USE 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] Onset: 3 Episodic Other aftercare (1 source) Other fpc (current) drug therapy; 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] Onset: 3 Episodic Other [...] other diseases of respiratory system] Episodic Other nervous system disorders (20 sources) [...] [CONTACT W/AND (SUSP) EXPOS COVID-19] Onset: 3 Unclassified (1 source) medicare annual wellness Onset: 4 Past or Other Problems Problem Classification Problem Date Documented Date Episodic/Chronic Cardiac dysrhythmias (5 sources) Palpitations; Translations: [Palpitations] Onset: 08-22-2018 Resolved: 12-09-2021 2 Episodic Chronic obstructive pulmonary disease and bronchiectasis (5 sources) Haemophilus influenzae laryngotracheobronchi tis; Translations: [Bronchitis, not specified as acute or chronic] Onset: 03-20-2023 03-20-2023 Episodic Chronic obstructive pulmonary disease and bronchiectasis (6 sources) Chronic bronchiolitis; 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..] Test Name Value Interpretation Reference Range Facility IGGon 10-25-2023 IgG [Mass/Vol] 795 mg/dL Normal 635-1741 [facility] Comment on above: Performed By: #### 2 465-3 #### [facility] ([id number]) [address], [address] [place] [address] BASIC METABOLIC PANLon 09-06 Anion gap [Moles/Vol] 7 mmol/L Normal 5-15 [facility] Comment on above: Performed By: #### C BCA, BMP #### [facility] ([id number]) [address], [address] [place] [address] Calcium [Mass/Vol] 9.0 mg/dL Normal 8.5-10.5 [facility] Comment on above: Performed By: #### C BCA, BMP #### [facility] ([id number]) [address], [address] [place] [address] Chloride [Moles/Vol] 95 mmol/L Low 98-109 [facility] Comment on above: Performed By: #### C BCA, BMP #### [facility] ([id number]) [address], [address] [place] [address] CO2 [Moles/Vol] 26 mmol/L Normal 22-32 [facility] Comment on above: Performed By: #### C BCA, BMP #### [facility] ([id number]) [address], [address] [place] [address] Creatinine [Mass/Vol] 1.38 mg/dL High 0.60-1.30 [facility] Comment on above: Result Comment: METH OD TRACEABLE TO IDMS STANDARD Performed By: #### C BCA, BMP #### [facility] ([id number]) [address] [address] [place] [address] GFR/1.73 sq M.predicted among non-blacks MDRD (S/P/Bld) [Vol rate/Area] 50 mL/min/{1.73_m2} Low >59 [facility] Comment on above: Result Comment: Reported eGFR is based on the CKD-EPI 2020 equation that does not use a race coefficient. Performed By: #### C CATRACHITO, BMP #### [facility] ([id number]) [address] [address] Glucose [Mass/Vol] 83 mg/dL Normal 65-99 [facility] Comment on above: Performed By: #### C CATRACHITO, BMP #### [facility] ([id number]) [address] [address] Potassium [Moles/Vol] 4.3 mmol/L Normal 3.5-5.0 [facility] Comment on above: Performed By: #### C CATRACHITO, BMP #### [facility] ([id number]) [address] [address] Sodium [Moles/Vol] 128 mmol/L Low 134-146 [facility] Comment on above: Performed By: #### C BCA, BMP #### [facility] ([id number]) [address] [address] Urea nitrogen [Mass/Vol] 24 mg/dL Normal 5-27 [facility] Comment on above: Performed By: #### C BCA, BMP #### [facility] ([id number]) [address] [address] CBC AND AUTO DIFFon 09-07-19 24 ACANTHOCYTE 1+ Abnormal NONE [facility] Comment on above: Performed By: #### C BCA, BMP #### [facility] ([id number]) [address], [address] [place] [address] YULY 1+ Abnormal NONE [facility] Comment on above: Performed By: #### C CATRACHITO, BMP #### [facility] ([id number]) [address], [address] [place] [address] Eosinophils (Bld) [#/Vol] 0.5 10*3/uL High 0.0-0.4 [facility] Comment on above: Performed By: #### C CATRACHITO, BMP #### [facility] ([id number]) [address] [place] [address] Eosinophils/100 WBC (Bld) 2.0 % Normal [facility] Comment on above: Performed By: #### C CATRACHITO, BMP #### [facility] ([id number]) [address] [place] [address] Erythrocyte distribution width (RBC) [Ratio] 14.3 % Normal 11.5-15.0 [facility] Comment on above: Performed By: #### C CATRACHITO, BMP #### [facility] ([id number]) [address], [address] [place] [address] Hematocrit (Bld) [Volume fraction] 33.4 % Low 39-49 [facility] Comment on above: Performed By: #### C CATRACHITO, BMP #### [facility] ([id number]) [address] [place] [address] Hemoglobin (Bld) [Mass/Vol] 11.2 g/dL Low 13.0-17.0 [facility] Comment on above: Performed By: #### C CATRACHITO, BMP #### [facility] ([id number]) [address], [address] [place] [address] Lymphocytes (Bld) [#/Vol] 5.0 10*3/uL High 1.0-3.5 [facility] Comment on above: Performed By: #### C BCA, BMP #### [facility] ([id number]) [address], [address] [place] [address] Lymphocytes/100 WBC (Bld) 22.0 % Normal [facility] Comment on above: Performed By: #### C BCA, BMP #### [facility] ([id number]) [address] [place] [address] MCH (RBC) [Entitic mass] 30.4 pg Normal 27-34 [facility] Comment on above: Performed By: #### C BCA, BMP #### [facility] ([id number]) [address], [address] [place] [address] MCHC (RBC) [Mass/Vol] 33.6 g/dL Normal 32-36 [facility] Comment on above: Performed By: #### C BCA, BMP #### [facility] ([id number]) [address], [address] [place] [address] MCV (RBC) [Entitic vol] 90 fL Normal 80-100 [facility] Comment on above: Performed By: #### C BCA, BMP #### [facility] ([id number]) [address] [place] [address] Monocytes (Bld) [#/Vol] 1.8 10*3/uL High 0-0.9 [facility] Comment on above: Performed By: #### C BCA, BMP #### [facility] ([id number]) [address], [address] [place] [address] Monocytes/100 WBC (Bld) 8.0 % Normal [facility] Comment on above: Performed By: #### C BCA, BMP #### [facility] ([id number]) [address], [address] [place] [address] MYELOCYTE 1.0 % Normal [facility] Comment on above: Performed By: #### C CATRACHITO, BMP #### [facility] ([id number]) [address], [address] [place] [address] Neutrophils (Bld) [#/Vol] 15.0 10*3/uL High 1.5-6.6 [facility] Comment on above: Performed By: #### C CATRACHITO, BMP #### [facility] ([id number]) [address] [place] [address] OVALOCYTE 1+ Abnormal NONE [facility] Comment on above: Performed By: #### Jeronimo WINSTON, BMP #### [facility] ([id number]) [address], [address] [place] [address] Platelet mean volume (Bld) [Entitic vol] 9.4 fL Normal 7-12 [facility] Comment on above: Performed By: #### Jeronimo WINSTON, BMP #### [facility] ([id number]) [address], [address] [place] [address] Platelets (Bld) [#/Vol] 234 10*3/uL Normal 150-450 [facility] Comment on above: Performed By: #### Jeronimo WINSTON, BMP #### [facility] ([id number]) [address] [place] [address] RBC COUNT 3.70 X10E12/L Low 4.10-5.70 [facility] Comment on above: Performed By: #### C CATRACHITO, BMP #### [facility] ([id number]) [address], [address] [place] [address] SEG NEUTROPHIL 67.0 % Normal [facility] Comment on above: Performed By: #### Jeronimo WINSTON, BMP #### [facility] ([id number]) [address], [address] [place] [address] WBC (Bld) [#/Vol] 22.5 10*3/uL High 4.0-11.0 [facility] Comment on above: Performed By: #### C BCA, BMP #### [facility] ([id number]) [address] [place] [address] XR CHEST 2 VWSon 07-05-2023 XR CHEST 2 VWS XR CHEST 2 VWS CHEST 2 VIEWS HISTORY: Bronchiectasis COMPARISON: CT chest 04/27/2023 IMPRESSION: * Extensive bronchiectasis in each lung with associated bronchial wall thickening, right worse than left. * No pleural effusions or pneumothorax. Finalized by Rabia Dias MD on 07/05/2023 7:[address] [facility] IGGon 06-09-2023 IgG [Mass/Vol] 826 mg/dL Normal 635-1741 [facility] Comment on above: Performed By: #### 2 465-3 #### [facility] ([id number]) [address] [place] [address] COMPREHENSIVE METABOLIC PANE Frank 06-07-2023 Albumin [Mass/Vol] 3.7 g/dL Normal 3.2-5.3 [facility] Comment on above: Performed By: #### C MP #### [facility] ([id number]) [address], [address] [place] [address] ALP [Catalytic activity/Vol] 115 U/L Normal 39-130 [facility] Comment on above: Performed By: #### C MP #### [facility] ([id number]) [address], [address] [place] [address] ALT [Catalytic activity/Vol] 10 U/L Normal 0-40 [facility] Comment on above: Performed By: #### C MP #### [facility] ([id number]) [address], [address] [place] [address] Anion gap [Moles/Vol] 8 mmol/L Normal 5-15 [facility] Comment on above: Performed By: #### C MP #### [facility] ([id number]) [address], [address] [place] [address] AST [Catalytic activity/Vol] 16 U/L Normal 0-41 [facility] Comment on above: Performed By: #### C MP #### [facility] ([id number]) [address], [address] [place] [address] Bilirubin [Mass/Vol] 0.7 mg/dL Normal 0.3-1.2 [facility] Comment on above: Performed By: #### C MP #### [facility] ([id number]) [address], [address] [place] [address] Calcium [Mass/Vol] 9.1 mg/dL Normal 8.5-10.5 [facility] Comment on above: Performed By: #### C MP #### [facility] ([id number]) [address] [place] [address] Chloride [Moles/Vol] 96 mmol/L Low 98-109 [facility] Comment on above: Performed By: #### C MP #### [facility] ([id number]) [address], [address] [place] [address] CO2 [Moles/Vol] 28 mmol/L Normal 22-32 [facility] Comment on above: Performed By: #### C MP #### [facility] ([id number]) [address], [address] [place] [address] Creatinine [Mass/Vol] 1.18 mg/dL Normal 0.60-1.30 [facility] Comment on above: Result Comment: METH OD TRACEABLE TO IDMS STANDARD Performed By: #### C MP #### [facility] ([id number]) [address], [address] [place] [address] GFR/1.73 sq M.predicted among non-blacks MDRD (S/P/Bld) [Vol rate/Area] 61 mL/min/{1.73_m2} Normal >59 [facility] Comment on above: Result Comment: Reported eGFR is based on the CKD-EPI 2020 equation that does not use a race coefficient. Performed By: #### C MP #### [facility] ([id number]) [address], [address] [place] [address] Glucose [Mass/Vol] 88 mg/dL Normal 65-99 [facility] Comment on above: Performed By: #### C MP #### [facility] ([id number]) [address] [address] [place] [address] Potassium [Moles/Vol] 3.8 mmol/L Normal 3.5-5.0 [facility] Comment on above: Performed By: #### C MP #### [facility] ([id number]) [address], [address] [place] [address] Protein [Mass/Vol] 6.0 g/dL Normal 6.0-8.0 [facility] Comment on above: Performed By: #### C MP #### [facility] ([id number]) [address], [address] [place] [address] Sodium [Moles/Vol] 132 mmol/L Low 134-146 [facility] Comment on above: Performed By: #### C MP #### [facility] ([id number]) [address], [address] [place] [address] Urea nitrogen [Mass/Vol] 20 mg/dL Normal 5-27 [facility] Comment on above: Performed By: #### C MP #### [facility] ([id number]) [address], [address] [place] [address] COMPLETE BLOOD COUNTon 05-24 Erythrocyte distribution width (RBC) [Ratio] 14.9 % Normal 11.5-15.0 [facility] Comment on above: Performed By: #### C BC #### [facility] ([id number]) [address], [address] [place] [address] Hematocrit (Bld) [Volume fraction] 38.7 % Low 39-49 [facility] Comment on above: Performed By: #### C BC #### [facility] ([id number]) [address], [address] [place] [address] Hemoglobin (Bld) [Mass/Vol] 12.5 g/dL Low 13.0-17.0 [facility] Comment on above: Performed By: #### C BC #### [facility] ([id number]) [address], [address] [place] [address] MCH (RBC) [Entitic mass] 29.6 pg Normal 27-34 [facility] Comment on above: Performed By: #### C BC #### [facility] ([id number]) [address], [address] [place] [address] MCHC (RBC) [Mass/Vol] 32.2 g/dL Normal 32-36 [facility] Comment on above: Performed By: #### C BC #### [facility] ([id number]) [address] [place] [address] MCV (RBC) [Entitic vol] 92 fL Normal 80-100 [facility] Comment on above: Performed By: #### C BC #### [facility] ([id number]) [address] [place] [address] Platelet mean volume (Bld) [Entitic vol] 9.5 fL Normal 7-12 [facility] Comment on above: Performed By: #### C BC #### [facility] ([id number]) [address] [place] [address] Platelets (Bld) [#/Vol] 244 10*3/uL Normal 150-450 [facility] Comment on above: Performed By: #### C BC #### [facility] ([id number]) [address] [place] [address] RBC COUNT 4.21 X10E12/L Normal 4.10-5.70 [facility] Comment on above: Performed By: #### C BC #### [facility] ([id number]) [address] [place] [address] WBC (Bld) [#/Vol] 23.5 10*3/uL High 4.0-11.0 [facility] Comment on above: Performed By: #### C BC #### [facility] ([id number]) [address], [address] [place] [address] COMPREHENSIVE METABOLIC PANE Frank 05-24-2023 Albumin [Mass/Vol] 3.8 g/dL Normal 3.2-5.3 [facility] Comment on above: Performed By: #### Jeronimo VANEGAS, 29665-1 #### [facility] ([id number]) [address] [place] [address] ALP [Catalytic activity/Vol] 112 U/L Normal 39-130 [facility] Comment on above: Performed By: #### Jeronimo VANEGAS, 26358-6 #### [facility] ([id number]) [address], [address] [place] [address] ALT [Catalytic activity/Vol] 10 U/L Normal 0-40 [facility] Comment on above: Performed By: #### Jeronimo VANEGAS, 57812-3 #### [facility] ([id number]) [address], [address] [place] [address] Anion gap [Moles/Vol] 6 mmol/L Normal 5-15 [facility] Comment on above: Performed By: #### Jeronimo VANEGAS, 58175-2 #### [facility] ([id number]) [address] [place] [address] AST [Catalytic activity/Vol] 17 U/L Normal 0-41 [facility] Comment on above: Performed By: #### Jeronimo VANEGAS, 29357-6 #### [facility] ([id number]) [address], [address] [place] [address] Bilirubin [Mass/Vol] 0.8 mg/dL Normal 0.3-1.2 [facility] Comment on above: Performed By: #### Jeronimo VANEGAS, 22982-3 #### [facility] ([id number]) [address], [address] [place] [address] Calcium [Mass/Vol] 9.6 mg/dL Normal 8.5-10.5 [facility] Comment on above: Performed By: #### Jeronimo VANEGAS, 54692-0 #### [facility] ([id number]) [address], [address] [place] [address] Chloride [Moles/Vol] 97 mmol/L Low 98-109 [facility] Comment on above: Performed By: #### Jeronimo VANEGAS, 25248-1 #### [facility] ([id number]) [address], [address] [place] [address] CO2 [Moles/Vol] 30 mmol/L Normal 22-32 [facility] Comment on above: Performed By: #### Jeronimo VANEGAS, 36542-4 #### [facility] ([id number]) [address], [address] [place] [address] Creatinine [Mass/Vol] 1.22 mg/dL Normal 0.60-1.30 [facility] Comment on above: Result Comment: METH OD TRACEABLE TO IDMS STANDARD Performed By: #### Jeronimo VANEGAS, 25556-4 #### [facility] ([id number]) [address] [place] [address] GFR/1.73 sq M.predicted among non-blacks MDRD (S/P/Bld) [Vol rate/Area] 58 mL/min/{1.73_m2} Low >59 [facility] Comment on above: Result Comment: Reported eGFR is based on the CKD-EPI 2020 equation that does not use a race coefficient. Performed By: #### Jeronimo VANEGAS, 81311-2 #### [facility] ([id number]) [address], [address] [place] [address] Glucose [Mass/Vol] 94 mg/dL Normal 65-99 [facility] Comment on above: Performed By: #### Jeronimo VANEGAS, 86914-8 #### [facility] ([id number]) [address], [address] [place] [address] Potassium [Moles/Vol] 4.1 mmol/L Normal 3.5-5.0 [facility] Comment on above: Performed By: #### Jeronimo VANEGAS, 34889-6 #### [facility] ([id number]) [address] [place] [address] Protein [Mass/Vol] 6.7 g/dL Normal 6.0-8.0 [facility] Comment on above: Performed By: #### Jeronimo VANEGAS, 17140-1 #### [facility] ([id number]) [address], [address] [place] [address] Sodium [Moles/Vol] 133 mmol/L Low 134-146 [facility] Comment on above: Performed By: #### Jeronimo VANEGAS, 87481-0 #### [facility] ([id number]) [address] [address] [place] [address] Urea nitrogen [Mass/Vol] 17 mg/dL Normal 5-27 [facility] Comment on above: Performed By: #### Jeronimo VANEGAS, 58151-5 #### [facility] ([id number]) [address], [address] [place] [address] Comprehensive metabolic pane frank 05-24-2023 Albumin [Mass/Vol] 3.8 g/dL 3.2 - 5.3 g/dL [facility] ALP [Catalytic activity/Vol] 112 U/L 39 - 130 U/L [facility] ALT No additional P-5'-P [Catalytic activity/Vol] 10 U/L 0 - 40 U/L [facility] Anion gap [Moles/Vol] 6 mmol/L 5 - 15 mmol/L [facility] AST [Catalytic activity/Vol] 17 U/L 0 - 41 U/L [facility] Bilirubin [Mass/Vol] 0.8 mg/dL 0.3 - 1.2 mg/dL [facility] Calcium [Mass/Vol] 9.6 mg/dL 8.5 - 10. 5 mg/dL [facility] Chloride [Moles/Vol] 97 mmol/L Low 98 - 109 mmol/L [facility] CO2 [Moles/Vol] 30 mmol/L 22 - 32 mmol/L [facility] Creatinine [Mass/Vol] 1.22 mg/dL 0.60 - 1.30 mg/dL [facility] Comment on above: METHOD TRACEABLE TO [facility] STANDARD eGFR (CKD-EPI)non-race dependent 58 Low - PINF [facility] Comment on above: Reported eGFR is based on the CKD-EPI 2020 equation that does not use a race coefficient. Glucose [Mass/Vol] 94 mg/dL 65 - 99 mg/dL [facility] Potassium [Moles/Vol] 4.1 mmol/L 3.5 - 5.0 mmol/L [facility] Protein [Mass/Vol] 6.7 g/dL 6.0 - 8.0 g/dL [facility] Sodium [Moles/Vol] 133 mmol/L Low 134 - 146 mmol/L [facility] Urea nitrogen [Mass/Vol] 17 mg/dL 5 - 27 mg/dL [facility] Lipid 1996 panelon Cholesterol [Mass/Vol] 98 mg/dL Low 150 - 200 mg/dL [facility] Cholesterol in HDL [Mass/Vol] 45 mg/dL 39 - PINF mg/dL [facility] Comment on above: HDL <40 mg/dL - High Risk HDL > or = 40mg/dL- Desirable HDL >60 mg/dL - Negative Risk Cholesterol in LDL [Mass/Vol] 40 mg/dL NINF - 130 mg/dL [facility] Comment on above: LDL <100 mg/dL - Desirable LDL >160 mg/dL - High Risk Cholesterol in VLDL [Mass/Vol] 13 mg/dL 0 - 30 mg/dL [facility] Cholesterol.total/ Cholesterol in HDL [Mass ratio] 2.2 {ratio} 1.0 - 5.0 [facility] Triglyceride [Mass/Vol] 63 mg/dL 27 - 150 mg/dL [facility] Cholesterol [Mass/Vol] 98 mg/dL Low 150-200 [facility] Comment on above: Performed By: #### Jeronimo VANEGAS, 38067-8 #### [facility] ([id number]) [address], [address] [place] [address] Cholesterol in HDL [Mass/Vol] 45 mg/dL Normal >39 [facility] Comment on above: Result Comment: HDL <40 mg/dL - High Risk HDL > or = 40mg/dL- Desirable HDL >60 mg/dL - Negative Risk Performed By: #### Jeronimo VANEGAS, 28883-9 #### [facility] ([id number]) [address], [address] [place] [address] Cholesterol in LDL [Mass/Vol] 40 mg/dL Normal <130 [facility] Comment on above: Result Comment: LDL <100 mg/dL - Desirable LDL >160 mg/dL - High Risk Performed By: #### Jeronimo VANEGAS, 38793-8 #### [facility] ([id number]) [address] [address] Cholesterol in VLDL [Mass/Vol] 13 mg/dL Normal 0-30 [facility] Comment on above: Performed By: #### Jeronimo VANEGAS, 70412-7 #### [facility] ([id number]) [address] [address] CHOLESTEROL:HDL 2.2 Normal 1.0-5.0 [facility] Comment on above: Performed By: #### Jeronimo VANEGAS, 68607-4 #### [facility] ([id number]) [address] [address] Triglyceride [Mass/Vol] 63 mg/dL Normal 27-150 [facility] Comment on above: Performed By: #### Jeronimo VANEGAS, 94176-7 #### [facility] ([id number]) [address] [address] No Panel Informationon 05-24 Interpretation and review of laboratory results Abnormal [facility] IGGon 05-05-2023 IgG [Mass/Vol] 748 mg/dL Normal 635-1741 [facility] Comment on above: Performed By: #### 2 465-3 #### [facility] ([id number]) [address] [address] [address] CHEST W CONTon 04-29-2023 CT CHEST [...] Cleaning MD on 04/29/2023 8:[address] [facility] CBC W Auto Differential pane l (Bld)on 02-02-2023 Basophils (Bld) [#/Vol] 0.09 10*3/uL Normal <0.11 [facility] Comment on above: Order Comment: Speci men Type: BLOOD SPECIMEN Ordering Facility: [facility] Address: [address] [place] [address] Performed By: #### 5 7021-8 #### [facility] CLIA [id number] [address] [place] [address] LAB CLIA [id number] [address] [place] [address] [place] #### [id number] #### [facility] CLIA [id number] [address] [place] [address] [place] Basophils/100 WBC (Bld) 0.4 % Normal [facility] Comment on above: Order Comment: Speci men Type: BLOOD SPECIMEN Ordering Facility: [facility] Address: [address] [place] [address] Performed By: #### 5 7021-8 #### [facility] CLIA [id number] [address] [place] [address] LAB CLIA [id number] [address] [place] [address] [place] #### [id number] #### [facility] CLIA [id number] [address] [place] [address] [place] Eosinophils (Bld) [#/Vol] 0.63 10*3/uL High <0.46 [facility] Comment on above: Order Comment: Speci men Type: BLOOD SPECIMEN Ordering Facility: [facility] Address: [address] [place] [address] Performed By: #### 5 7021-8 #### [facility] CLIA [id number] [address] [address] LAB CLIA [id number] [address] [place] [address] [place] #### [id number] #### [facility] CLIA [id number] [address] [place] [address] [place] Eosinophils/100 WBC (Bld) 2.6 % Normal [facility] Comment on above: Order Comment: Speci men Type: BLOOD SPECIMEN Ordering Facility: [facility] Address: [address] [place] [address] Performed By: #### 5 7021-8 #### [facility] CLIA [id number] [address] [id number] [facility] CLIA [id number] [address] [place] [address] [place] #### [id number] #### [facility] CLIA [id number] [address] [place] [address] [place] Erythrocyte distribution width (RBC) [Ratio] 13.2 % Normal 11.5-15.0 [facility] Comment on above: Order Comment: Speci men Type: BLOOD SPECIMEN Ordering Facility: [facility] Address: [address] [place] [address] Performed By: #### 5 7021-8 #### [facility] CLIA [id number] [address] [id number] [facility] CLIA [id number] [facility] [place] [address] [place] #### [id number] #### [facility] CLIA [id number] [address] [place] [address] [place] Hematocrit (Bld) [Volume fraction] 36.3 % Low 39.0-51.0 [facility] Comment on above: Order Comment: Speci men Type: BLOOD SPECIMEN Ordering Facility: [facility] Address: [address] [address] Performed By: #### 5 7021-8 #### [facility] CLIA [id number] [address] [id number] [facility] CLIA [id number] [address] [place] [address] [place] #### [id number] #### [facility] CLIA [id number] [address] [id number] [place] Hemoglobin (Bld) [Mass/Vol] 11.6 g/dL Low 13.0-17.0 [facility] Comment on above: Order Comment: Speci men Type: BLOOD SPECIMEN Ordering Facility: [facility] Address: [address] [place] [address] Performed By: #### 5 7021-8 #### [facility] CLIA [id number] [address] [address] LAB CLIA [id number] [address] [place] [address] [place] #### [id number] #### [facility] CLIA [id number] [address] [place] [address] [place] Immature granulocytes (Bld) [#/Vol] 0.20 10*3/uL High <0.10 [facility] Comment on above: Order Comment: Speci men Type: BLOOD SPECIMEN Ordering Facility: [facility] Address: [address] [place] [address] Performed By: #### 5 7021-8 #### [facility] CLIA [id number] [address] [place], [place] [address] [facility] CLIA [id number] [address] [place] [address] [place] #### [id number] #### [facility] CLIA [id number] [address] [place] [address] [place] Immature granulocytes/100 WBC (Bld) 0.8 % Normal [facility] Comment on above: Order Comment: Speci men Type: BLOOD SPECIMEN Ordering Facility: [facility] Address: [address] [address] Performed By: #### 5 7021-8 #### [facility] CLIA [id number] [address] [place], [place] [address] [facility] CLIA [id number] [address] [place] [address] [place] #### [id number] #### [facility] CLIA [id number] [address] [id number] [place] Lymphocytes (Bld) [#/Vol] 6.62 10*3/uL High 1.00-4.00 [facility] Comment on above: Order Comment: Speci men Type: BLOOD SPECIMEN Ordering Facility: [facility] Address: [address] [place] [address] Performed By: #### 5 7021-8 #### [facility] CLIA [id number] [address] [address] LAB CLIA [id number] [address] [place] [address] [place] #### [id number] #### [facility] CLIA [id number] [address] [id number] [place] Lymphocytes/100 WBC (Bld) 27.1 % Normal [facility] Comment on above: Order Comment: Speci men Type: BLOOD SPECIMEN Ordering Facility: [facility] Address: [address] [id number] Performed By: #### 5 7021-8 #### [facility] CLIA [id number] [address] [place], [place] [address] [facility] CLIA [id number] [address] [place] [address] [place] #### [id number] #### [facility] CLIA [id number] [address] [place] [address] [place] MCH (RBC) [Entitic mass] 29.5 pg Normal 26.0-34.0 [facility] Comment on above: Order Comment: Speci men Type: BLOOD SPECIMEN Ordering Facility: [facility] Address: [address] [place] [address] Performed By: #### 5 7021-8 #### [facility] CLIA [id number] [address] [address] LAB CLIA [id number] [address] [place] [address] [place] #### [id number] #### [facility] CLIA [id number] [address] [place] [address] [place] MCHC (RBC) [Mass/Vol] 32.0 g/dL Normal 30.5-36.0 [facility] Comment on above: Order Comment: Speci men Type: BLOOD SPECIMEN Ordering Facility: [facility] Address: [address] [place] [address] Performed By: #### 5 7021-8 #### [facility] CLIA [id number] [address] [place] [address] LAB CLIA [id number] [address] [place] [address] [place] #### [id number] #### [facility] CLIA [id number] [address] [place] [address] [place] MCV (RBC) [Entitic vol] 92.4 fL Normal 80.0-100.0 [facility] Comment on above: Order Comment: Speci men Type: BLOOD SPECIMEN Ordering Facility: [facility] Address: [address] [place] [address] Performed By: #### 5 7021-8 #### [facility] CLIA [id number] [address] [address] LAB CLIA [id number] [facility] [place] [address] [place] #### [id number] #### [facility] CLIA [id number] [address] [place] [address] [place] Monocytes (Bld) [#/Vol] 2.49 10*3/uL High <0.87 [facility] Comment on above: Order Comment: Speci men Type: BLOOD SPECIMEN Ordering Facility: [facility] Address: [address] [place] [address] Performed By: #### 5 7021-8 #### [facility] CLIA [id number] [address] [address] LAB CLIA [id number] [address] [place] [address] [place] #### [id number] #### [facility] CLIA [id number] [address] [place] [address] [place] Monocytes/100 WBC (Bld) 10.2 % Normal [facility] Comment on above: Order Comment: Speci men Type: BLOOD SPECIMEN Ordering Facility: [facility] Address: [address] [place] [address] Performed By: #### 5 7021-8 #### [facility] CLIA [id number] [address] [place] [address] LAB CLIA [id number] [address] [place] [address] [place] #### [id number] #### [facility] CLIA [id number] [address] [place] [address] [place] Neutrophils (Bld) [#/Vol] 14.40 10*3/uL High 1.45-7.50 [facility] Comment on above: Order Comment: Speci men Type: BLOOD SPECIMEN Ordering Facility: [facility] Address: [address] [place] [address] Performed By: #### 5 7021-8 #### [facility] CLIA [id number] [address] [address] LAB CLIA [id number] [address] [place] [address] [place] #### [id number] #### [facility] CLIA [id number] [address] [place] [address] [place] Neutrophils/100 WBC (Bld) 58.9 % Normal [facility] Comment on above: Order Comment: Speci men Type: BLOOD SPECIMEN Ordering Facility: [facility] Address: [address] [place] [address] Performed By: #### 5 7021-8 #### [facility] CLIA [id number] [address] [address] LAB CLIA [id number] [address] [place] [address] [place] #### [id number] #### [facility] CLIA [id number] [address] [place] [address] [place] Platelet mean volume (Bld) [Entitic vol] 10.6 fL Normal 9.0-12.7 [facility] Comment on above: Order Comment: Speci men Type: BLOOD SPECIMEN Ordering Facility: [facility] Address: [address] [place] [address] Performed By: #### 5 7021-8 #### [facility] CLIA [id number] [address] [address] LAB CLIA [id number] [address] [place] [address] [place] #### [id number] #### [facility] CLIA [id number] [address] [place] [address] [place] Platelets (Bld) [#/Vol] 222 10*3/uL Normal 150-400 [facility] Comment on above: Order Comment: Speci men Type: BLOOD SPECIMEN Ordering Facility: [facility] Address: [address] [place] [address] Performed By: #### 5 7021-8 #### [facility] CLIA [id number] [address] [address] LAB CLIA [id number] [address] [place] [address] [place] #### [id number] #### [facility] CLIA [id number] [address] [place] [address] [place] RBC (Bld) [#/Vol] 3.93 10*6/uL Low 4.20-6.00 [facility] Comment on above: Order Comment: Speci men Type: BLOOD SPECIMEN Ordering Facility: [facility] Address: [address] [place] [address] Performed By: #### 5 7021-8 #### [facility] CLIA [id number] [address] [address] LAB CLIA [id number] [address] [place] [address] [place] #### [id number] #### [facility] CLIA [id number] [address] [place] [address] [place] WBC (Bld) [#/Vol] 24.43 10*3/uL High 3.70-11.00 [facility] Comment on above: Order Comment: Speci men Type: BLOOD SPECIMEN Ordering Facility: [facility] Address: [address] [place] [address] Performed By: #### 5 7021-8 #### [facility] CLIA [id number] [address] [address] LAB CLIA [id number] [address] [place], [place] [address] [place] #### [id number] #### [facility] CLIA [id number] [address] [place], [place] [address] [place] CNOVSPon 02-02-2023 CNOVSP Visit (SP) Office ([facility]) ----- RASHAD PHIPPS ([id number]) 1940 M Date Time Provider Department 02/02/23 3:30 PM POLI CAMPBELL During your visit today, we recorded the following information about you: Temperature Pulse Respiration Blood pressure 97.3 degrees 73/minute 18/minute 119/67 Weight Height 68.8 kg 1.803 m Poli Campbell MD 02/02/2023 4:25 PM Signed PATIENT NAME: Rashad Phipps CLINIC NO.: [id number] ATTENDING PHYSICIAN: Poli Campbell MD DATE OF [...] intact. Breast: (more content not included)... Normal [facility] Comprehensive metabolic 2000 panelon 02-02-2023 Albumin [Mass/Vol] 3.9 g/dL Normal 3.9-4.9 [facility] Comment on above: Order Comment: Speci men Type: BLOOD SPECIMEN Ordering Facility: [facility] Address: [address] [id number] Performed By: #### 2 4323-8, #### [facility] CLIA [id number] [address] [place] [address] ALP [Catalytic activity/Vol] 107 U/L Normal 38-113 [facility] Comment on above: Order Comment: Speci men Type: BLOOD SPECIMEN Ordering Facility: [facility] Address: [address] [place] [address] Performed By: #### 2 4323-8, 0 #### [facility] CLIA [id number] [address] [place] [address] ALT [Catalytic activity/Vol] 8 U/L Low 10-54 [facility] Comment on above: Order Comment: Speci men Type: BLOOD SPECIMEN Ordering Facility: [facility] Address: [address] [place] [address] Performed By: #### 2 432-8, 2531-0 #### [facility] CLIA [id number] [address] [place] [address] Anion gap [Moles/Vol] 5 mmol/L Low 9-18 [facility] Comment on above: Order Comment: Speci men Type: BLOOD SPECIMEN Ordering Facility: [facility] Address: [address] [place] [address] Performed By: #### 2 4328, 2531-0 #### [facility] CLIA [id number] [address] [place] [id number] AST [Catalytic activity/Vol] 14 U/L Normal 14-40 [facility] Comment on above: Order Comment: Speci men Type: BLOOD SPECIMEN Ordering Facility: [facility] Address: [address] [place] [address] Performed By: #### 2 4328, 2531-0 #### [facility] CLIA [id number] [address] [place] [id number] Bilirubin [Mass/Vol] 0.5 mg/dL Normal 0.2-1.3 [facility] Comment on above: Order Comment: Speci men Type: BLOOD SPECIMEN Ordering Facility: [facility] Address: [address] [place] [address] Performed By: #### 2 4328, 2531-0 #### [facility] CLIA [id number] [address] [place] [address]49 Calcium [Mass/Vol] 9.0 mg/dL Normal 8.5-10.2 [facility] Comment on above: Order Comment: Speci men Type: BLOOD SPECIMEN Ordering Facility: [facility] Address: [address] [place] [address] Performed By: #### 2 4328, 2531-0 #### [facility] CLIA [id number] [address] [place] [address] Chloride [Moles/Vol] 97 mmol/L Normal 97-105 [facility] Comment on above: Order Comment: Speci men Type: BLOOD SPECIMEN Ordering Facility: [facility] Address: [address] [place] [address] Performed By: #### 2 4323-8, 2532-0 #### [facility] CLIA [id number] [address] [place] [address] CO2 [Moles/Vol] 28 mmol/L Normal 22-30 [facility] Comment on above: Order Comment: Speci men Type: BLOOD SPECIMEN Ordering Facility: [facility] Address: [address] [place] [address] Performed By: #### 2 4323-8, 2532-0 #### [facility] CLIA [id number] [address] [place] [address]328 Creatinine [Mass/Vol] 1.26 mg/dL High 0.73-1.22 [facility] Comment on above: Order Comment: Speci men Type: BLOOD SPECIMEN Ordering Facility: [facility] Address: [address] [place] [address] Performed By: #### 2 4323-8, 2532-0 #### [facility] CLIA [id number] [address] [place] [address] 39017 Creatinine and Glomerular filtration rate.predicted panel (S/P/Bld) 56 mL/min/1.73m??? Low >=60 [facility] Comment on above: Order Comment: Speci men Type: BLOOD SPECIMEN Ordering Facility: [facility] Address: [address] [place] [address] Result Comment: Doug mated Glomerular Filtration Rate [...] reflect actual GFR. Performed By: #### 2 43238, 0 #### [facility] CLIA [id number] [address] [place] [address] Glucose [Mass/Vol] 99 mg/dL Normal 74-99 [facility] Comment on above: Order Comment: Speci men Type: BLOOD SPECIMEN Ordering Facility: [facility] Address: [address] [place] [address] Result Comment: The [place] Diabetes Association (ADA) provides guidance for cutoff [...] Standards of Medical Care in Diabetes 2016, [place] [employer]. Diabetes Care. 2016.39(Suppl 1). Performed By: #### 2 4328, 0 #### [facility] CLIA [id number] [address] [place] [address] 10501 Potassium [Moles/Vol] 4.1 mmol/L Normal 3.7-5.1 [facility] Comment on above: Order Comment: Speci men Type: BLOOD SPECIMEN Ordering Facility: [facility] Address: [address] [place] [address] Performed By: #### 2 43238, 0 #### [facility] CLIA [id number] [address] [place] [address]27 Protein [Mass/Vol] 6.4 g/dL Normal 6.3-8.0 [facility] Comment on above: Order Comment: Debrai men Type: BLOOD SPECIMEN Ordering Facility: [facility] Address: [address] [place] [address] Performed By: #### 2 4328, 2531-0 #### [facility] CLIA [id number] [address] [place] [address] 56440 Sodium [Moles/Vol] 130 mmol/L Low 136-144 [facility] Comment on above: Order Comment: Speci men Type: BLOOD SPECIMEN Ordering Facility: [facility] Address: [address] [id number] Performed By: #### 2 4323-8, 2531-0 #### [facility] CLIA [id number] [address] [place], [place] [address] Urea nitrogen [Mass/Vol] 20 mg/dL Normal 9-24 [facility] Comment on above: Order Comment: Speci men Type: BLOOD SPECIMEN Ordering Facility: [facility] Address: [address] [place] [address] Performed By: #### 2 4323-8, 2531-0 #### [facility] CLIA [id number] [address] [place], [place] [address] Albumin [Mass/Vol] 3.9 g/dL 3.9 - 4.9 g/dL [facility] ALP [Catalytic activity/Vol] 107 U/L 38 - 113 U/L [facility] ALT [Catalytic activity/Vol] 8 U/L Low 10 - 54 U/L [facility] Anion gap [Moles/Vol] 5 mmol/L Low 9 - 18 mmol/L [facility] AST [Catalytic activity/Vol] 14 U/L 14 - 40 U/L [facility] Bilirubin [Mass/Vol] 0.5 mg/dL 0.2 - 1.3 mg/dL [facility] Calcium [Mass/Vol] 9.0 mg/dL 8.5 - 10. 2 mg/dL [facility] Chloride [Moles/Vol] 97 mmol/L 97 - 105 mmol/L [facility] CO2 [Moles/Vol] 28 mmol/L 22 - 30 mmol/L [facility] Creatinine [Mass/Vol] 1.26 mg/dL High 0.73 - 1.22 mg/dL [facility] Estimated Glomerular Filtration Rate 56 mL/min/1.73m Low >=60 mL/min/1.73m [facility] Glucose [Mass/Vol] 99 mg/dL 74 - 99 mg/dL [facility] Potassium [Moles/Vol] 4.1 mmol/L 3.7 - 5.1 mmol/L [facility] Protein [Mass/Vol] 6.4 g/dL 6.3 - 8.0 g/dL [facility] Sodium [Moles/Vol] 130 mmol/L Low 136 - 144 mmol/L [facility] Urea nitrogen [Mass/Vol] 20 mg/dL 9 - 24 mg/dL [facility] IMMUNOFIXATION SCREEN, SERUM on 02-02-2023 MPA RESULT No M protein is identified. Normal No M protein is identified. [facility] Comment on above: Order Comment: Speci men Type: BLOOD SPECIMEN Ordering Facility: [facility] Address: [address] [place] [address] Performed By: #### I FESC #### [facility] CLIA [id number] [address] [place] [address] [place] STAFF REVIEW (MPA) Reviewed by Betty Vallejo M.D. Normal [facility] Comment on above: Order Comment: Speci men Type: BLOOD SPECIMEN Ordering Facility: [facility] Address: [address] [place] [address] Performed By: #### I FES #### [facility] CLIA [id number] [facility] [place] [address] [place] IMMUNOGLOBULINS GAMon 2022 IgA [Mass/Vol] 117 mg/dL Normal 70-400 [facility] Comment on above: Order Comment: Speci men Type: BLOOD SPECIMEN Ordering Facility: [facility] Address: [address] [place] [address] Performed By: #### S ERIMM #### [facility] CLIA [id number] [facility] [place] [address] [place] IgG [Mass/Vol] 823 mg/dL Normal 700-1600 [facility] Comment on above: Order Comment: Speci men Type: BLOOD SPECIMEN Ordering Facility: [facility] Address: [address] [place] [address] Performed By: #### S ERIMM #### [facility] CLIA [id number] [facility] [place] [address] [place] IgM [Mass/Vol] 22 mg/dL Low 40-230 [facility] Comment on above: Order Comment: Speci men Type: BLOOD SPECIMEN Ordering Facility: [facility] Address: [address] [place] [address] Performed By: #### S ERIMM #### [facility] CLIA [id number] [facility] [place] [address] [place] KAPPA/GUILLEN,FREE,SERon 2022 Immunoglobulin light chains.kappa.free (S) [Mass/Vol] 24.9 mg/L High 3.3-19.4 [facility] Comment on above: Order Comment: Speci men Type: BLOOD SPECIMEN Ordering Facility: [facility] Address: [address] [place] [address] Result Comment: Rare ly, increased serum free light chains levels may not be detected or accurately quantified due to prozone phenomenon or in high viscosity samples using this immunoturbidimetric assay. Correlation with other laboratory results and clinical findings is recommended. The [place] Free Light Chain was performed using the Binding Site Optilite immunoturbidimetric method. Result obtained with different assay methods or kits cannot be used interchangeably. Performed By: #### K LFRS #### [facility] CLIA [id number] [address] [place] [address] [place] Immunoglobulin light chains.kappa/Immun oglobulin light chains.lambda (S) [Mass ratio] 1.78 High 0.26-1.65 [facility] Comment on above: Order Comment: Speci men Type: BLOOD SPECIMEN Ordering Facility: [facility] Address: [address] [place] [address] Performed By: #### K LFRS #### [facility] CLIA [id number] [address] [place] [address] [place] Immunoglobulin light chains.lambda.free [Mass/Vol] 14.0 mg/L Normal 5.7-26.3 [facility] Comment on above: Order Comment: Speci men Type: BLOOD SPECIMEN Ordering Facility: [facility] Address: [place] [address] Result Comment: Rare ly, increased serum free [...] interchangeably. Performed By: #### K LFRS #### [facility] CLIA [id number] [address] [place] [address] [place] LD LACTATE DEHYDROon 023 LDH [Catalytic activity/Vol] 124 U/L Low 135 - 225 U/L [facility] LDH SerPl-cCncon 02-02-2023 LDH [Catalytic activity/Vol] 124 U/L Low 135-225 [facility] Comment on above: Order Comment: Speci men Type: BLOOD SPECIMEN Ordering Facility: [facility] Address: [place] [address] Performed By: #### 2 4323-8, 2532-0 #### [facility] CLIA [id number] [address] [place] [address] PROTEIN ELECTROPHORESIS SERU M (P)on 02-02-2023 Albumin [Mass/Vol] 3.32 g/dL Low 3.43-5.41 [facility] Comment on above: Order Comment: Speci men Type: BLOOD SPECIMEN Ordering Facility: [facility] Address: [address] [place] [address] Performed By: #### L [id number] #### [facility] CLIA [id number] [address] [place] [address] [place] Alpha 1 globulin Elph [Mass/Vol] 0.46 g/dL High 0.18-0.43 [facility] Comment on above: Order Comment: Speci men Type: BLOOD SPECIMEN Ordering Facility: [facility] Address: [address] [place] [address] Performed By: #### L [id number] #### [facility] CLIA [id number] [address] [place] [address] [place] Alpha 2 globulin Elph [Mass/Vol] 0.72 g/dL Normal 0.42-0.98 [facility] Comment on above: Order Comment: Speci men Type: BLOOD SPECIMEN Ordering Facility: [facility] Address: [address] [place] [address] Performed By: #### L [id number] #### [facility] CLIA [id number] [address] [place] [address] [place] Beta globulin Elph [Mass/Vol] 0.62 g/dL Normal 0.61-1.17 [facility] Comment on above: Order Comment: Speci men Type: BLOOD SPECIMEN Ordering Facility: [facility] Address: [address] [place] [address] Performed By: #### L [id number] #### [facility] CLIA [id number] [address] [place] [address] [place] Gamma globulin Elph [Mass/Vol] 0.68 g/dL Normal 0.53-1.51 [facility] Comment on above: Order Comment: Speci men Type: BLOOD SPECIMEN Ordering Facility: [facility] Address: [address] [place] [address] Performed By: #### L [id number] #### [facility] CLIA [id number] [address] [place] [address] [place] M-PROTEIN LOCATION Normal [facility] Comment on above: Order Comment: Speci men Type: BLOOD SPECIMEN Ordering Facility: [facility] Address: [address] [place] [address] Result Comment: Not Applicable. Performed By: #### L [id number] #### [facility] CLIA [id number] [address] [place] [address] [place] Protein Fractions [Interp] No definitive M protein is identified on protein electrophoresis. Normal No definitive M protein is identified on protein electrophore sis. [facility] Comment on above: Order Comment: Speci men Type: BLOOD SPECIMEN Ordering Facility: [facility] Address: [address] [place] [address] Performed By: #### L [id number] #### [facility] CLIA [id number] [address] [place] [address] [place] Protein.monoclonal Elph [Mass/Vol] 0.00 g/dL Normal <=0.00 [facility] Comment on above: Order Comment: Speci men Type: BLOOD SPECIMEN Ordering Facility: [facility] Address: [address] [place] [address] Performed By: #### L [id number] #### [facility] CLIA [id number] [address] [place] [address] [place] SPE STAFF REVIEW Reviewed by Betty Vallejo M.D. Normal [facility] Comment on above: Order Comment: Speci men Type: BLOOD SPECIMEN Ordering Facility: [facility] Address: [address] [place] [address] Performed By: #### L [id number] #### [facility] CLIA [id number] [address] [place] [address] [place] Prot SerPl-mCncon 02-02-2023 Protein [Mass/Vol] 5.8 g/dL Low 6.3-8.0 [facility] Comment on above: Order Comment: Speci men Type: BLOOD SPECIMEN Ordering Facility: [facility] Address: [address] [place] [address] Performed By: #### 2 885-2 #### [facility] CLIA [id number] [address] [place] [address] [place] RBC MORPHOLOGYon 02-02-2023 Platelets Estimate (Bld) [#/Vol] Adequate Normal [facility] Comment on above: Order Comment: Speci jadiel Type: BLOOD SPECIMENOrdering Facility: [facility] Address: [address] [place] [address] Performed By: #### 5 7021-8 ####[facility] [id number] [address] LABCLIA [id number] [place] [address] [place]#### [id number] ####[facility] [id number] [place] [address] [place] RBC morphology finding Nom (Bld) Reviewed: unremarkable Normal [facility] Comment on above: Order Comment: Kevin duvall Type: BLOOD SPECIMENOrdering Facility: [facility] Address: [address] [place] [address] Performed By: #### 5 7021-8 ####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) Asthma, unspecified asthma severity, unspecified whether complicated, unspecified whether persistent (493.90) (J45.909) Chronic sinusitis (473.9) (J32.9) Bronchiectasis (494.0) (J47.9) CKD (chronic kidney disease) (585.9) (N18.9) Orders Asthma, unspecified asthma severity, unspecified whether complicated, unspecified whether persistent Asthma Control Flowsheet; Status:Complete; Done: [id number] Bronchiectasis, CVID (common variable immunodeficiency) Immunoglobulin G Level, Serum; Status:Active; Requested for:[id number]; Chronic sinusitis Start: Nasacort Allergy 24HR 55 MCG/ACT Nasal Aerosol; INSTILL 2 SPRAY Daily CKD (chronic kidney disease) Comprehensive Metabolic Panel; Status:Active; Requested for:[id number]; Patient Discussion/Summary Continue Hizentra infusions. Have IgG level rechecked in January 2023. Continue Breo. Use albuterol as needed. Continue saline neb solution 0.9 3x a day and flutter valve by Dr. Jacobson. I recommend followup with Dr. Quiroz, ID, at least yearly. Change Flonase to Nasacort AQ two sprays each nostril once a day. To increase the efficacy of your nasal spray, be sure to look down while using it. [place] slightly away from the direction of your [...] a day and flutter valve per Dr. Jacobson. I recommend followup with VERONICA Garrison, at least yearly. 4. Rhinitis - New [...] he had bronchoscopy Apr [address] Jacobson with mucus buildup in his lungs, which [...] followup scheduled He continues Xarelto 20 per business coordinator but questions if this raises a bleeding risk. He is concerned due to intermittent nosebleeds. He uses Flonase daily. Patient has followup with Dr. Jacobson in Dec 2022. Patient states weekly infusions are going well and he denies any illnesses or infections. Patient admits to 15 lb weight loss after bronchoscopy and has not gained it back. Patient's notes he has a decreased appetite and often does not know what he wants to eat. Patient does not have an appointment scheduled with VERONICA Garrison, yet. Review of Systems See attached Review of Systems in HPI. Active Problems Asthma (more content not included)... Normal [facility] Office Visiton 08-06-2022 Follow-up visit Diagnoses/Problems Asthma, [...] a day and flutter valve per Dr. Jacobson. Have blood work to evaluate IgG level [...] a day and flutter valve by Dr. Jacobson. 4. Rhinitis - New problem, uncontrolled. Allergies [...] results of the bronchoscopy done by Dr. Jacobson in Apr 2022. Patient states he had repeat CBC 2 weeks later and white count dropped by 5 points so no other workup was required. He was given a 10 day course of Levaquin in May [address] Quiroz. states patient was prescribed regular saline neb solution 0.9 3x a day and flutter valve have per Dr. Jacobson. Patient also had a fall in May [...] start fluticasone. He continues Hizentra infusions from [facility], which are going well with no SE. [...] (V15.82) (Z87.891) (more content not included)... Normal [facility] ACID FAST SMEAR AND CXon Acid Fast Culture Negative Normal [facility] Comment on above: Result Comment: No a marshall fast bacilli isolated after 6 weeks. Performed By: #### A FB #### [facility] [address] [address] [address] Nadeen Broderick Acid Fast Smear Negative Normal [facility] Comment on above: Performed By: #### A FB #### [facility] [address] [address] [address] Nadeen Broderick [employer] Specimen Processing Concentration Normal [facility] Comment on above: Performed By: #### A FB #### [facility] [address] [address] [address] Nadeen Broderick Chart Updateon 06-10-2022 Chart [...] scan of the chest ordered by his lace tearing supervisor Dr. Jacobson (in [facility]) I requested repeat CBC for 06/21/2022 but will defer if other overlapping blood tests or testing requested by PCP 1 1 Amended By: Rodriguez Quiroz; Jun 10 2022 11:29 AM ESTSignatures Electronically signed by : Rodriguez Quiroz MD; Jun 10 2022 11:31AM EST (Author) Normal [facility] FUNGAL CULTUREon 06-02-2022 Fungus (Mycology) Culture Final report Normal [facility] Comment on above: Performed By: #### C XFUN #### [facility] [address] [address] [address] Nadeen Broderick Fungus Stain Final report Normal [facility] Comment on above: Performed By: #### C XFUN #### [facility] [address] [address] [address] Nadeen Broderick Result 1 Comment Normal [facility] Comment on above: Result Comment: LAILA/ Calcofluor preparation: no fungus observed. Performed By: #### C XFUN #### [facility] [address] [address] [address] Nadeen Broderick Result Comment: No y east or mold isolated after 4 weeks. RESPIRATORY CF CULTURE,BACTE RIAL.on 05-21-2022 RESPIRATORY CF CULTURE,BACTERIAL. PATIENT: RASHAD PHIPPS LOCATION: [address] BILL#: [id number] : 36 AGE: SEX: M ORDERED BY: [...] DEPENDENT NS=NONSUSCEPTIBLE X=REPORTED IN ERROR ___ Normal [facility] Comment on above: Performed By: #### R [facility] #### [facility] [address] [place] [address] Chart Updateon 05-19-2022 Chart Update Chart Update [...] on 05/21/2022. Requisition sent to laboratory at [facility]. Patient will collect sputum today prior to starting levofloxacin 2. Levofloxacin 500 mg daily x10 days. Prescription sent electronically 3. Repeat CBC plus differential and basic metabolic panel on 05/31/2022. Order placed in computer. Requisition faxed to [employer] [facility] laboratories at [facility] in [facility] LAB phone [phone]) LAB FAX for [facility] ([phone]) LAB number [phone] 4. Phone follow-up in 1 week or earlier if necessary 5. Phone follow-up with culture results in 7-10 days Signatures Electronically signed by : Rodriguez Quiroz MD; May 19 2022 10:30AM EST (Author) Normal [facility] Chart Updateon 05-18-2022 Chart Update Orders Bronchiectasis, CVID (common variable immunodeficiency), Pseudomonas aeruginosa colonization Cult, Respiratory CF; Status:Hold For - Specimen/Data Collection; Requested for:[id number]; Perform:Lab Services - Office to Draw (Non-Blood Test); Order Comments:Immunoglobulin Immunodeficiency and bronchiectasis. History of mucoid pseudomonas.; Due:[id number];Ordered; For:Bronchiectasis, CVID (common variable immunodeficiency), Pseudomonas aeruginosa colonization; Ordered By:Rodriguez Quiroz; Site : Throat/Pharynx Chart Update 05/18/2022 Infectious Diseases Update Non scheduled evaluation I received and reviewed records from Dr. Jacobson Patient had been seen 05/11/2022 after a [...] to deliver sputum on 05/21/2022 to the [facility] facility. We will discuss results afterwards. We will request additional antibiotic testing for future interventions (for example, colistin which also can be aerosolized if needed) - Continue maximizing pulmonary toileting. I explained that mobilization of secretions and prevention of mucous plugging is a main principal of treatment over antibiotics. - Continue to follow-up with PCP, allergy and pulmonary (Dr. Jacobson) Will send note to Dr. Jacobson at [facility] in [place], [place] FAX [phone] Signatures Electronically signed by : Rodriguez Quiroz MD; May 18 2022 12:35PM EST (Author) Normal [facility] Chart Updateon 05-10-2022 Chart Update Chart Update [...] 05/03/2022 as part of evaluation with new lace tearing supervisor. Patient reports new evaluation regarding possible new lesion/? Mass/? Infiltrate in the right lower lobe. Patient underwent bronchoscopy. No procedural or culture details known. Patient had no additional news and has follow-up with pulmonology in [facility] on 05/11/2022. NEW lace tearing supervisor, Dr. Rabia Jacobson Post-bronchoscopy leukocytosis I asked the patient to relay WBC count to Dr. Jacobson Would recommend repeat CBC plus differential in 1 week on 05/17/2022. Pulmonary could order at local hospital for patient convenience (patient goes to [facility] in [facility]) Patient will call and let me know if we need to order and send fax to [facility] if pulmonary unable to do so I faxed a copy of white blood cell count report to pulmonary at [phone] (Dr. Jacobson) Signatures Electronically signed by : Rodriguez Quiroz MD; May 10 2022 2:37PM EST (Author) Normal [facility] CBC AND DIFFERENTIALon 05-07 % AUTOMATED IMMATURE GRAN 1.8 % High 0.0 - 0.9 [facility] Comment on above: Result Comment: Acacia ture Granulocyte Count (IG) includes promyelocytes, myelocytes and metamyelocytes but does not include bands. Percent differential counts (%) should be interpreted in the context of the absolute cell counts (cells/L). Performed By: #### C BCDF #### [address] [id number] DIFFERENTIAL SEE MANUAL DIFF Normal [facility] Comment on above: Performed By: #### C BCDF #### [address] [id number] Erythrocyte distribution width (RBC) [Ratio] 14.6 % High 11.5 - 14.5 [facility] Comment on above: Performed By: #### C BCDF #### [address] [id number] Hematocrit (Bld) [Volume fraction] 34.7 % Low 41.0 - 52.0 [facility] Comment on above: Performed By: #### C BCDF #### [address] [id number] Hemoglobin (Bld) [Mass/Vol] 11.0 g/dL Low 13.5 - 17.5 [facility] Comment on above: Performed By: #### C BCDF #### [address] [id number] MCHC (RBC) [Mass/Vol] 31.7 g/dL Low 32.0 - 36.0 [facility] [facility] Comment on above: Performed By: #### C BCDF #### [address] [id number] MCV (RBC) [Entitic vol] 92 fL Normal 80 - 100 [facility] ([facility] Comment on above: Performed By: #### C BCDF #### [address] [id number] Platelets (Bld) [#/Vol] 376 10*3/uL Normal 150 - 450 [facility] Comment on above: Performed By: #### C BCDF #### [address] [id number] RBC 3.77 x10E12/L Low 4.50 - 5.90 [facility] Comment on above: Performed By: #### C BCDF #### [address] [id number] WBC (Bld) [#/Vol] 34.0 10*3/uL High 4.4 - 11.3 [facility] Comment on above: Performed By: #### C BCDF #### [address] [id number] COMPREHENSIVE PANELon 2022 Albumin [Mass/Vol] 3.6 g/dL Normal 3.4 - 5.0 [facility] Comment on above: Performed By: #### C MP #### [address] [id number] ALP [Catalytic activity/Vol] 94 U/L Normal 33 - 136 [facility] Comment on above: Performed By: #### C MP #### [address] [id number] ALT [Catalytic activity/Vol] 12 U/L Normal 10 - 52 [facility] Comment on above: Result Comment: Cathy ents treated with Sulfasalazine may generate falsely decreased results for ALT. Performed By: #### C MP #### [address] [id number] Anion gap [Moles/Vol] 12 mmol/L Normal 10 - 20 [facility] Comment on above: Performed By: #### C MP #### [address] [id number] AST [Catalytic activity/Vol] 14 U/L Normal 9 - 39 [facility] Comment on above: Performed By: #### C MP #### [address] [id number] Bilirubin [Mass/Vol] 0.6 mg/dL Normal 0.0 - 1.2 [facility] Comment on above: Performed By: #### C MP #### [address] [id number] Calcium [Mass/Vol] 8.8 mg/dL Normal 8.6 - 10.3 [facility] Comment on above: Performed By: #### C MP #### [address] [id number] Chloride [Moles/Vol] 95 mmol/L Low 98 - 107 [facility] Comment on above: Performed By: #### C MP #### [address] [id number] Creatinine [Mass/Vol] 1.33 mg/dL High 0.50 - 1.30 [facility] Comment on above: Performed By: #### C MP #### [address] [id number] GFR/1.73 sq M.predicted among non-blacks MDRD (S/P/Bld) [Vol rate/Area] 53 mL/min/{1.73_m2} Abnormal >90 [facility] Comment on above: Result Comment: CALC ULATIONS OF ESTIMATED GFR ARE PERFORMED USING THE 2020 CKD-EPI STUDY REFIT EQUATION WITHOUT THE RACE VARIABLE FOR THE IDMS-TRACEABLE CREATININE METHODS. https://jasn.asnjournals.org/content//ASN.901078508 8 Performed By: #### C MP #### [address] [id number] Glucose [Mass/Vol] 72 mg/dL Low 74 - 99 [facility] Comment on above: Performed By: #### C MP #### [address] [id number] HCO3 (Bld) [Moles/Vol] 28 mmol/L Normal 21 - 32 [facility] Comment on above: Performed By: #### C MP #### [address] [id number] Potassium [Moles/Vol] 3.9 mmol/L Normal 3.5 - 5.3 [facility] Comment on above: Performed By: #### C MP #### [address] [id number] Protein [Mass/Vol] 6.1 g/dL Low 6.4 - 8.2 [facility] Comment on above: Performed By: #### C MP #### [address] [id number] Sodium [Moles/Vol] 131 mmol/L Low 136 - 145 [facility] Comment on above: Performed By: #### C MP #### [address] [id number] Urea nitrogen [Mass/Vol] 22 mg/dL Normal 6 - 23 [facility] Comment on above: Performed By: #### C MP #### [address] [id number] Complete Blood Count + Diffe rentialon 05-07-2022 [...] [Mass/Vol] 778 mg/dL Normal 700 - 1600 [facility] Comment on above: Result Comment: MONO CLONAL PROTEINS MAY CAUSE FALSELY LOW RESULTS IN THIS ASSAY. SERUM PROTEIN ELECTROPHORESIS SHOULD BE DONE THE FIRST TEST TO EVALUATE MONOCLONAL GAMMOPATHY. Performed By: #### I GG #### [facility] [address] [place] [address] Immunoglobulin G Level, Seru mon 05-07-2022 IgG [...] BASOPHIL 0.0 % Normal 0.0 - 2.0 [facility] Comment on above: Performed By: #### M DIFF #### [address] [id number] % EOSINOPHIL 0.0 % Normal 0.0 - 6.0 [facility] Comment on above: Performed By: #### M DIFF #### [address] [id number] % LYMPHOCYTE 16.0 % Normal 13.0 - 44.0 [facility] Comment on above: Performed By: #### M DIFF #### [address] [id number] % MONOCYTE 9.0 % Normal 2.0 - 10.0 [facility] Comment on above: Performed By: #### M DIFF #### [address] [id number] % SEG NEUTROPHIL 75.0 % Normal 40.0 - 80.0 [facility] Comment on above: Result Comment: Perc ent differential counts (%) should be interpreted in the context of the absolute cell counts (cells/L). Performed By: #### M DIFF #### [address] [id number] ANC 25.50 x10E9/L High 1.60 - 5.50 [facility] Comment on above: Performed By: #### M DIFF #### [address] [id number] BASOPHIL 0.00 x10E9/L Normal 0.00 - 0.10 [facility] Comment on above: Performed By: #### M DIFF #### [address] [id number] EOSINOPHIL 0.00 x10E9/L Normal 0.00 - 0.40 [facility] Comment on above: Performed By: #### M DIFF #### [address] [id number] LYMPHOCYTE 5.44 x10E9/L High 0.80 - 3.00 [facility] Comment on above: Performed By: #### M DIFF #### [address] [id number] MONOCYTE 3.06 x10E9/L High 0.05 - 0.80 [facility] Comment on above: Performed By: #### M DIFF #### [address] [id number] SEG NEUTROPHIL 25.50 x10E9/L High 1.60 - 5.00 [facility] Comment on above: Performed By: #### M DIFF #### [address] [id number] No Panel Informationon 05-07 25.50 {x10E9/L} above [...] THE RACE VARIABLE FOR THE IDMS-TRACEABLE CREATININE METHODS.https://jasn.asnjournals.org/content//ASN.2 [email or web address] Office Visiton 05-07-2022 Follow-up visit Diagnoses/Problems Bronchiectasis [...] to think mucus but will check with Mobile Application Developer first. I will review CT chest once [...] thin his mucus but will check with Mobile Application Developer first. Record release from lace tearing supervisor, Rabia Jacobson DO, [facility]. I will review CT chest once I [...] A had persistent Sx and saw a lace tearing supervisor at [facility], Dr. Rabia Jacobson, who performed bronchoscopy this past Tuesday. The [...] colonization (V02.59) (Z22.39) Reaction, drug, adverse (E947.9) (T50.103A) Past Medical History History of arthritis (V13.4) (Z87.39) History of cataract (V12.49) (Z86.69) History of esophageal reflux (V12.79) (Z87.19) History of malignant neoplasm (V10.90) (Z85.9) History of (more content not included)... Normal [employer] RED CELL MORPHOLOGYon 2022 ACANTHOCYTES Few Normal [facility] Comment on above: Performed By: #### M ORP2 #### [address] [id number] YULY CELLS Few Normal [facility] Comment on above: Performed By: #### M ORP2 #### [address] [id number] OVALOCYTES Few Normal [facility] Comment on above: Performed By: #### M ORP2 #### [address] [id number] RBC morphology finding Nom (Bld) See Below Normal [facility] Comment on above: Performed By: #### M ORP2 #### [address] [id number] TOBRAMYCINon 05-07-2022 TOBRAMYCIN 0.6 ug/mL Normal [facility] Comment on above: Result Comment: . Th erapeutic Ranges: Peak: 4.0-10.0 ug/mL . Trough: 0.0- 2.0 ug/mL Performed By: #### T OBRU #### [facility] [address] [place] [address] Tobramycin Level, Randomon 0 05-07-2022 Tobramycin [Mass/Vol] 0.6 ug/mL [facility]-Infectious Disease-[facility] Immun [facility] Work Phone: Comment on above: . Therapeutic Ranges : Peak: 4.0-10.0 ug/mL. Trough: 0.0- 2.0 ug/mL CULTURE OTHERon 05-03-2022 CULTURE OTHER Culture Observations : Susceptibility testing performed by [facility]. See report scanned in One [employer]. Isolate 1 Pseudomonas aeruginosa Light growth of Normal [facility] Comment on above: Performed By: #### O THCX #### [facility] [address] [address] [address] Nadeen Broderick CYTOLOGYon 05-03-2022 SENT TO REF LAB 05/03/2022 Normal [facility] Comment on above: Performed By: #### C YTO #### [facility] [address] [address] [address] Nadeen IBARRA STAINon 05-03-2022 COMMENTS NO ORGANISMS OBSERVED Normal [facility] Comment on above: Performed By: #### G STAIN #### [facility] [address] [place] [address] Dr. Nadeen Broderick DIPHTHEROIDS [facility] Comment on above: Performed By: #### G STAIN #### [facility] [address] [address] [address] Nadeen Broderick EPITHELIALS RARE Normal [facility] Comment on above: Performed By: #### G STAIN #### [facility] [address] [address] [address] Nadeen Broderick FUNGAL ELEMENTS [facility] Comment on above: Performed By: #### G STAIN #### [facility] [address] [place] [address] Dr. Nadeen IBARRA NEG BACILLI Normal [facility] Comment on above: Performed By: #### G STAIN #### [facility] [address] [place] [address] Dr. Nadeen IBARRA NEG DIPPLOCOCCI Normal [facility] Comment on above: Performed By: #### G STAIN #### [facility] [address] [place] [address] Dr. Nadeen IBARRA POS BACILLI [facility] Comment on above: Performed By: #### G STAIN #### [facility] [address] [place] [address] Dr. Nadeen Broderick GRAM POSITIVE COCCI Normal [facility] Comment on above: Performed By: #### G STAIN #### [facility] [address] [place] [address] Dr. Nadeen Broderick GRAM STAIN SOURCE R. LOWER LOBE LAVAGE Normal [facility] Comment on above: Performed By: #### G STAIN #### [facility] [address] [place] [address] Dr. Nadeen Broderick GS_DIPTH Normal [facility] Comment on above: Performed By: #### G STAIN #### [facility] [address] [place] [address] Dr. aNdeen Broderick WBC MODERATE Normal [facility] Comment on above: Performed By: #### G STAIN #### [facility] [address] [place] [address] Dr. Nadeen Broderick CBC W MANUAL DIFFon 04-30-19 23 ATYPICAL LYMPH # 1.30 103/ul Normal [facility] Comment on above: Performed By: #### C BCMAN #### [facility] [address] [place] [address] Dr. Nadeen Broderick ATYPICAL LYMPH % 5 % Normal [facility] Comment on above: Performed By: #### C BCMAN #### [facility] [address] [place] [address] Dr. Nadeen Broderick BAND # 0.0 103/ul Normal 0.0-0.3 [facility] Comment on above: Performed By: #### C CAMILLE #### [facility] [address] [place] [address] Dr. Nadeen Broderick BAND % 0 % Normal 0-5 [facility] Comment on above: Performed By: #### C BCMAN #### [facility] [address] [place] [address] Dr. Nadeen Broderick BASOM # 0.00 103/ul Normal 0.00-0.10 [facility] Comment on above: Performed By: #### C BCMAN #### [facility] [address] [place] [address] Dr. Nadeen Broderick BASOM % 0.0 % Critically low 0.2-2.0 [facility] Comment on above: Performed By: #### C BCMAN #### [facility] [address] [address] [address] Nadeen Broderick BLAST # Normal [facility] Comment on above: Performed By: #### C BCMAN #### [facility] [address] [place] [address] Dr. Nadeen Broderick BLAST % Normal [facility] Comment on above: Performed By: #### C BCMAN #### [facility] [address] [address] [address] Nadeen Broderick CORRECTED WBC Normal 4.0-11.0 [facility] Comment on above: Performed By: #### C BCMAN #### [facility] [address] [place] [address] Dr. Nadeen Broderick EOS # 0.26 103/ul Normal 0.00-0.70 [facility] Comment on above: Performed By: #### C BCMAN #### [facility] [address] [place] [address] Dr. Nadeen Broderick EOS% 1.0 % Normal 0.9-7.0 [facility] Comment on above: Performed By: #### C BCPIERRE #### [facility] [address] [place] [address] Dr. Nadeen Broderick HCT 28.5 % Critically low 42.0-54.0 [facility] Comment on above: Performed By: #### C BCMAN #### [facility] [address] [place] [address] Dr. Nadeen Broderick HGB 10.3 g/dl Critically low 14.0-18.0 [facility] Comment on above: Performed By: #### C BCMAN #### [facility] [address] [place] [address] Dr. Nadeen Broderick LYMPHM # 4.96 103/ul Critically high 1.20-3.80 [facility] Comment on above: Performed By: #### C BCMAN #### [facility] [address] [place] [address] Dr. Nadeen Broderick LYMPHM% 19.0 % Critically low 20.5-60.0 [facility] Comment on above: Performed By: #### C CAMILLE #### [facility] [address] [address] [address] Nadeen Broderick MCH 29.4 pg Normal 25.9-34.0 [facility] Comment on above: Performed By: #### C CAMILLE #### [facility] [address] [place] [address] Dr. Nadeen Broderick MCHC 36.1 g/dl Critically high 29.9-35.2 [facility] Comment on above: Performed By: #### C CAMILLE #### [facility] [address] [place] [address] Dr. Nadeen Broderick MCV 81.4 fL Normal 80.0-94.0 [facility] Comment on above: Performed By: #### C CAMILLE #### [facility] [address] [place] [address] Dr. Nadeen Broderick METAMYELOCYTE # Normal [facility] Comment on above: Performed By: #### C CAMILLE #### [facility] [address] [place] [address] Dr. Nadeen Broderick METAMYELOCYTE % Normal [facility] Comment on above: Performed By: #### C CAMILLE #### [facility] [address] [place] [address] Dr. Nadeen Broderick MONOM# 2.61 103/ul Critically high 0.30-0.80 [facility] Comment on above: Performed By: #### C CAMILLE #### [facility] [address] [place] [address] Dr. Nadeen Broderick MONOM% 10.0 % Normal 1.7-12.0 [facility] Comment on above: Performed By: #### C CAMILLE #### [facility] [address] [place] [address] Dr. Nadeen Broderick MPV 9.1 fL Critically low 9.5-13.5 [facility] Comment on above: Performed By: #### C CAMILLE #### [facility] [address] [place] [address] Dr. Nadeen Broderick MYELOCYTE # Normal [facility] Comment on above: Performed By: #### C CAMILLE #### [facility] [address] [address] [address] Nadeen Broderick MYELOCYTE % Normal [facility] Comment on above: Performed By: #### C CAMILLE #### [facility] [address] [address] [address] Nadeen Broderick NRBC Normal [facility] Comment on above: Performed By: #### C CAMILLE #### [facility] [address] [address] [address] Nadeen Broderick PLT 320 103/ul Normal 150-450 [facility] Comment on above: Performed By: #### C CAMILLE #### [facility] [address] [address] [address] Nadeen Broderick RBC 3.50 106/ul Critically low 4.70-6.10 [facility] Comment on above: Performed By: #### C CAMILLE #### [facility] [address] [address] [address] Nadeen Broderick RDW 13.3 % Normal 11.0-15.0 [facility] Comment on above: Performed By: #### C CAMILLE #### [facility] [address] [place] [address] Dr. Nadeen Broderick SEG # 16.96 103/ul Critically high 1.40-6.50 [facility] Comment on above: Performed By: #### C CAMILLE #### [facility] [address] [place] [address] Dr. Nadeen Broderick SEG % 65.0 % Normal 43.0-75.0 [facility] Comment on above: Performed By: #### C CAMILLE #### [facility] [address] [place] [address] Dr. Nadeen Broderick WBC 26.1 103/ul Critically high 4.0-11.0 [facility] Comment on above: Performed By: #### C CAMILLE #### [facility] [address] [place] [address] Dr. Nadeen Broderick [facility]12 SARS-CoV-2 (COVID-19) RNA PERLITA+probe Ql (Unsp spec) Not detected Normal NOT DETECTED [facility] Comment on above: Result Comment: This test is not yet approved or cleared by the [place] FDA. When there are no FDA-approved or cleared tests available, and other criteria are met, FDA can make tests available under an emergency access mechanism called an Emergency Use Authorization (EUA). The EUA for this test is supported by the Vaccine Customer Representative of Health and Human Service's (HHS's) declaration [...] consistent with SARS-CoV-2. Performed By: #### C VDTBH #### [facility] [address] [place] [address] Dr. Nadeen Broderick PROF CHEM 8 (BAS METB)on Anion gap [Moles/Vol] 12.4 mmol/L Normal [facility] Comment on above: Performed By: #### B MP #### [facility] [address] [place] [address] Dr. Nadeen Broderick Calcium [Mass/Vol] 9.0 mg/dL Normal 8.5-10.1 [facility] Comment on above: Performed By: #### B MP #### [facility] [address] [address] [address] Nadeen Broderick Chloride [Moles/Vol] 97 mmol/L Critically low 98-107 [facility] Comment on above: Performed By: #### B MP #### [facility] [address] [address] [address] Nadeen Broderick CO2 [Moles/Vol] 27.1 mmol/L Normal 21.0-32.0 [facility] Comment on above: Performed By: #### B MP #### [facility] [address] [address] [address] Nadeen Broderick Creatinine [Mass/Vol] 1.54 mg/dL Critically high 0.70-1.30 [facility] Comment on above: Performed By: #### B MP #### [facility] [address] [address] [address] Nadeen Broderick EGFR-AF MONGOLIAN 53 mL/min/1.73m2 Critically low >=60 [facility] Comment on above: Performed By: #### B MP #### [facility] [address] [address] [address] Nadeen Broderick EGFR-NON AF MONGOLIAN 43 mL/min/1.73m2 Critically low >=60 [facility] Comment on above: Performed By: #### B MP #### [facility] [address] [address] [address] Nadeen Broderick Glucose [Mass/Vol] 106 mg/dL Normal 74-106 [facility] Comment on above: Performed By: #### B MP #### [facility] [address] [address] [address] Nadeen Broderick Potassium [Moles/Vol] 3.5 mmol/L Normal 3.5-5.1 [facility] Comment on above: Performed By: #### B MP #### [facility] [address] [address] [address] Nadeen Broderick Sodium [Moles/Vol] 133 mmol/L Critically low 136-145 [facility] Comment on above: Performed By: #### B MP #### [facility] [address] [address] [address] Nadeen Broderick Urea nitrogen [Mass/Vol] 26.0 mg/dL Critically high 7.0-18.0 [facility] Comment on above: Performed By: #### B MP #### [facility] [address] [address] [address] Nadeen Broderick Urea nitrogen/Creatinin e [Mass ratio] 16.9 mg/mg Normal [facility] Comment on above: Performed By: #### B MP #### [facility] [address] [place] [address] Dr. Nadeen Broderick PROTIMEon 04-30-2022 INR Coag (PPP) [Relative time] 1.29 {INR} Normal [facility] Comment on above: Performed By: #### P TT, PT #### [facility] [address] [place] [address] Dr. Nadeen Broderick INR GUIDELINES SEE BELOW Normal [facility] Comment on above: Result Comment: DAVID RED INR: 2.0 - 3.0 CONDITIONS NOT LISTED BELOW 2.5 - 3.5 FOR PROSTHETIC HEART VALVE REPLACEMENT 2.5 - 3.5 RECURRENT THROMBOSIS Performed By: #### P TT, PT #### [facility] [address] [place] [address] Dr. Nadeen Broderick PT Coag (PPP) [Time] 13.5 s Critically high 9.0-11.6 [facility] Comment on above: Performed By: #### P TT, PT #### [facility] [address] [place] [address] Dr. Nadeen Broderick PTTon 04-30-2022 aPTT Coag (Bld) [Time] 53.6 s Critically high 22.3-36.2 [facility] Comment on above: Performed By: #### P TT, PT #### [facility] [address] [place] [address] Dr. Nadeen Broderick ID - Follow Upon [...] colonization (V02.59) (Z22.39) Reaction, drug, adverse (E947.9) (T50.164F) Past Medical History History of arthritis (V13.4) [...] THEN 14 DAYS OFF - REFILLS CALL: [phone]; Therapy: 17Dec2020 to (Last Rx:09Jul2021) Requested for: [...] Last Upda (more content not included)... Normal [facility] METABOLIC PANE [facility] 10-01-2021 Albumin [Mass/Vol] 4.0 g/dL Normal 3.6-5.1 [facility] Comment on above: Performed By: #### 5 8984, 7600, 64807 #### [facility] [address] [place] [address] Department Store Salesperson: Ozzie Callejas MD Albumin/Globulin [Mass ratio] 1.8 {ratio} Normal 1.0-2.5 [facility] Comment on above: Performed By: #### 5 8984, 7600, [id number] #### [facility] [address] [place] [address] [employer] Salesperson: Ozzie Callejas MD ALP [Catalytic activity/Vol] 94 U/L Normal 35-144 [facility] Comment on above: Performed By: #### 5 8984, 7600, 21969 #### [facility] [place] [address] [employer] Salesperson: Ozzie Callejas MD ALT [Catalytic activity/Vol] 10 U/L Normal 9-46 [facility] Comment on above: Performed By: #### 5 89, 7600, 56393 #### [facility] [address] [place] [address] [employer] Salesperson: Ozzie Callejas MD AST [Catalytic activity/Vol] 16 U/L Normal 10-35 [facility] Comment on above: Performed By: #### 5 8984, 7600, 78241 #### [facility] [address] [address] [place] [address] Department Store Salesperson: Ozzie Callejas MD Bilirubin [Mass/Vol] 0.5 mg/dL Normal 0.2-1.2 [facility] Comment on above: Performed By: #### 5 8984, 7600, 21104 #### [facility] [address], [address] [place] [address] Department Store Salesperson: Ozzie Callejas MD Calcium [Mass/Vol] 9.1 mg/dL Normal 8.6-10.3 [facility] Comment on above: Performed By: #### 5 8984, 7600, 82483 #### [facility] [address], [address] [place] [address] Department Store Salesperson: Ozzie Callejas MD Chloride [Moles/Vol] 101 mmol/L Normal 98-110 [facility] Comment on above: Performed By: #### 5 89, 7600, 19048 #### [facility] [address] Street, [address] [place] [address] Department Store Salesperson: Ozzie Callejas MD CO2 [Moles/Vol] 26 mmol/L Normal 20-32 [facility] Comment on above: Performed By: #### 5 89, 7600, 13024 #### [facility] [place] [address] Department Store Salesperson: Ozzie Callejas MD Creatinine [Mass/Vol] 1.55 mg/dL High 0.70-1.11 [facility] Comment on above: Result Comment: For patients >49 years of age, the reference limit for Creatinine is approximately 13% higher for people identified as -Cameroonian. Performed By: #### 5 89, 7600, 85379 #### [facility] [place] [address] Department Store Salesperson: Ozzie Callejas MD eGFR NON-AFR. MONGOLIAN 41 mL/min/1.73m2 Low > OR = 60 [facility] Comment on above: Performed By: #### 5 8984, 7600, 58954 #### [facility] of [place] [address] [place] [address] Department Store Salesperson: Ozzie Callejas MD GFR/1.73 sq M.predicted among blacks MDRD (S/P/Bld) [Vol rate/Area] 47 mL/min/{1.73_m2} Low > OR = 60 [facility] Comment on above: Performed By: #### 5 8984, 7600, 78284 #### [facility] [address], [address] [place] [address] Department Store Salesperson: Ozzie Callejas MD Globulin (S) [Mass/Vol] 2.2 g/dL Normal 1.9-3.7 [facility] Comment on above: Performed By: #### 5 89, 7600, 24993 #### [facility] [place] [address] Department Store Salesperson: Ozzie Callejas MD Glucose [Mass/Vol] 92 mg/dL Normal 65-99 [facility] Comment on above: Result Comment: Fasting reference interval Performed By: #### 5 89, 7600, 84034 #### [facility] [place] [address] Department Store Salesperson: Ozzie Callejas MD Potassium [Moles/Vol] 4.3 mmol/L Normal 3.5-5.3 [facility] Comment on above: Performed By: #### 5 8984, 7600, 31214 #### [facility] [place] [address] Department Store Salesperson: Ozzie Callejas MD Protein [Mass/Vol] 6.2 g/dL Normal 6.1-8.1 [facility] Comment on above: Performed By: #### 5 89, 7600, 49533 #### [facility] [place] [address] Department Store Salesperson: Ozzie Callejas MD Sodium [Moles/Vol] 137 mmol/L Normal 135-146 [facility] Comment on above: Performed By: #### 5 89, 7600, 66359 #### [facility] of [address], [address] [place] [address] Department Store Salesperson: Ozzie Callejas MD Urea nitrogen [Mass/Vol] 19 mg/dL Normal 7-25 [facility] Comment on above: Performed By: #### 5 8984, 7600, 88248 #### [facility] [address], [address] [place] [address] Department Store Salesperson: Ozzie Callejas MD Urea nitrogen/Creatinin e [Mass ratio] 12 mg/mg Normal 6-22 [facility] Comment on above: Performed By: #### 5 8984, 7600, 21496 #### [facility] [address], [address] [place] [address] Department Store Salesperson: Ozzie Callejas MD LIPID PANEL, [facility] 06- Cholesterol [Mass/Vol] 114 mg/dL Normal <200 [facility] Comment on above: Order Comment: FASTI NG:YES FASTING: YES Performed By: #### 5 8984, 7600, 34404 #### [facility] [address], [address] [place] [address] Department Store Salesperson: Ozzie Callejas MD Cholesterol in HDL [Mass/Vol] 47 mg/dL Normal > OR = 40 [facility] Comment on above: Order Comment: FASTI NG:YES FASTING: YES Performed By: #### 5 8984, 7600, 35808 #### [facility] [address], [address] [place] [address] Department Store Salesperson: Ozzie Callejas MD Cholesterol in LDL [Mass/Vol] 53 mg/dL Normal [facility] Comment on above: Order Comment: FASTI NG:YES FASTING: YES Result Comment: Refe rence range: <100 Desirable range <100 mg/dL for primary prevention; <70 mg/dL for patients with CHD or diabetic patients with > or = 2 CHD risk factors. LDL-C is now calculated using the Shane calculation, which is a validated novel method providing better accuracy than the Friedewald equation in the estimation of LDL-C. Jay Jay SS et al. MARIBEL. 2013;310(19): 8084-4062 (http://education.[facility].com/faq/CXM676) Performed By: #### 5 8984, 7600, 16580 #### [facility] [address], [address] [place] [address] Department Store Salesperson: Ozzie Callejas MD Cholesterol.total/ Cholesterol in HDL [Mass ratio] 2.4 {ratio} Normal <5.0 [facility] Comment on above: Order Comment: FASTI NG:YES FASTING: YES Performed By: #### 5 8984, 7600, 80708 #### [facility] [address], [address] [place] [address] Department Store Salesperson: Ozzie Callejas MD NON HDL CHOLESTEROL 67 mg/dL (calc) Normal <130 [facility] Comment on above: Order Comment: FASTI NG:YES FASTING: YES Result Comment: For patients with diabetes plus 1 major ASCVD risk factor, treating to a non-HDL-C goal of <100 mg/dL (LDL-C of <70 mg/dL) is considered a therapeutic option. Performed By: #### 5 8984, 7600, 37590 #### [facility] [address], [address] [place] [address] Department Store Salesperson: Ozzie Callejas MD Triglyceride [Mass/Vol] 60 mg/dL Normal <150 [facility] Comment on above: Order Comment: FASTI NG:YES FASTING: YES Performed By: #### 5 8984, 7600, 13231 #### [facility] [address], [address] [place] [address] Department Store Salesperson: Ozzie Callejas MD TSH+FREE T4on 10-01-2021 Free T4 [Mass/Vol] 1.6 ng/dL Normal 0.8-1.8 [facility] Comment on above: Performed By: #### 5 8984, 7600, 61511 #### [facility] [address], [address] [place] [address] Department Store Salesperson: Ozzie Callejas MD TSH Qn 0.68 m[IU]/L Normal 0.40-4.50 [facility] Comment on above: Performed By: #### 5 8984, 7600, 34341 #### [facility] [address], [address] [place] [address] Department Store Salesperson: Ozzie Callejas MD Tobacco Screening.on 022 Fall risk assessment a) No falls within the last year [facility] [employer] Work Phone: Tobacco use status [facility] b) No [facility] [employer] Work Phone: BASIC METABOLIC PANELon - Calcium [Mass/Vol] 8.8 mg/dL Normal 8.6-10.3 [facility] Comment on above: Order Comment: FASTI NG:UNKNOWN FASTING: UNKNOWN Performed By: #### 1 0165 #### [facility] [address], [address] [place] [address] Department Store Salesperson: Ozzie Callejas MD Chloride [Moles/Vol] 99 mmol/L Normal 98-110 [facility] Comment on above: Order Comment: FASTI NG:UNKNOWN FASTING: UNKNOWN Performed By: #### 1 0165 #### [facility] [address], [address] [place] [address] Department Store Salesperson: Ozzie Callejas MD CO2 [Moles/Vol] 28 mmol/L Normal 20-32 [facility] Comment on above: Order Comment: FASTI NG:UNKNOWN FASTING: UNKNOWN Performed By: #### 1 0165 #### [facility] [address], [address] [place] [address] Department Store Salesperson: Ozzie Callejas MD Creatinine [Mass/Vol] 1.34 mg/dL High 0.70-1.11 [facility] Comment on above: Order Comment: FASTI NG:UNKNOWN FASTING: UNKNOWN Result Comment: For patients >49 years of age, the reference limit for Creatinine is approximately 13% higher for people identified as -Cameroonian. Performed By: #### 1 0165 #### [facility] [address], [address] [place] [address] Department Store Salesperson: Ozzie Callejas MD eGFR NON-AFR. MONGOLIAN 49 mL/min/1.73m2 Low > OR = 60 [facility] Comment on above: Order Comment: FASTI NG:UNKNOWN FASTING: UNKNOWN Performed By: #### 1 0165 #### [facility] [place] [address] Department Store Salesperson: Ozzie Callejas MD GFR/1.73 sq M.predicted among blacks MDRD (S/P/Bld) [Vol rate/Area] 57 mL/min/{1.73_m2} Low > OR = 60 [facility] Comment on above: Order Comment: FASTI NG:UNKNOWN FASTING: UNKNOWN Performed By: #### 1 0165 #### [facility] [place] [address] Department Store Salesperson: Ozzie Callejas MD Glucose [Mass/Vol] 84 mg/dL Normal 65-99 [facility] Comment on above: Order Comment: FASTI NG:UNKNOWN FASTING: UNKNOWN Result Comment: Fasting reference interval Performed By: #### 1 0165 #### [facility] [place] [address] Department Store Salesperson: Ozzie Callejas MD Potassium [Moles/Vol] 4.3 mmol/L Normal 3.5-5.3 [facility] Comment on above: Order Comment: FASTI NG:UNKNOWN FASTING: UNKNOWN Performed By: #### 1 0165 #### [facility] [place] [address] Department Store Salesperson: Ozzie Callejas MD Sodium [Moles/Vol] 135 mmol/L Normal 135-146 [facility] Comment on above: Order Comment: FASTI NG:UNKNOWN FASTING: UNKNOWN Performed By: #### 1 0165 #### [facility] [place] [address] Department Store Salesperson: Ozzie Callejas MD Urea nitrogen [Mass/Vol] 20 mg/dL Normal 7-25 [facility] Comment on above: Order Comment: FASTI NG:UNKNOWN FASTING: UNKNOWN Performed By: #### 1 0165 #### [place] [address] Department Store Salesperson: Ozzie Callejas MD Urea nitrogen/Creatinin e [Mass ratio] 15 mg/mg Normal 6-22 [facility] Comment on above: Order Comment: FASTI NG:UNKNOWN FASTING: UNKNOWN Performed By: #### 1 0165 #### [facility] [address] [facility], [address] [place] [address] Department Store Salesperson: Ozzie Callejas MD Vital Signs Date Time Vital Sign Value Performing Clinician Facility 05-24-2023 12:05-0500 Diastolic blood pressure 68 mm[Hg] Blaise [facility] 05-24-2023 12:05-0500 Systolic blood pressure 98 mm[Hg] [facility] 05-24-2023 11:30-0500 Body height 180.3 cm Blaise Marie DO [facility] 05-24-2023 11:30-0500 Body mass index (BMI) [Ratio] 20.35 kg/m2 Blaise Marie DO [facility] 05-24-2023 11:30-0500 Body temperature 97.7 [degF] Blaise Marie DO [facility] 05-24-2023 11:30-0500 Body weight 66.18 kg Blaise Marie DO [facility] 05-24-2023 11:30-0500 Heart rate 87 /min Blaise Marie DO [facility] 05-24-2023 11:30-0500 SaO2% (BldA) [Mass fraction] 93 % Blaise Marie DO [facility] Comment on above: pt is on o2 at home , hands are cold 02-02-2023 15:26-0400 Body height 180.3 cm Poli Campbell MD Work Phone: [facility] 02-02-2023 15:26-0400 Body temperature 97.3 [degF] Poli Campbell MD Work Phone: [facility] 02-02-2023 15:26-0400 Body weight 68.77 kg Poli Campbell MD Work Phone: [facility] 02-02-2023 15:26-0400 Diastolic blood pressure 67 mm[Hg] Poli Campbell MD Work Phone: [facility] 02-02-2023 15:26-0400 Heart rate 73 /min Poli Campbell MD Work Phone: [facility] 02-02-2023 15:26-0400 Respiratory rate 18 /min Poli Campbell MD Work Phone: [facility] 02-02-2023 15:26-0400 SaO2% (BldA) [Mass fraction] 97 % Poli Campbell MD Work Phone: [facility] 02-02-2023 15:26-0400 Systolic blood pressure 119 mm[Hg] Poli Campbell MD Work Phone: [facility] 11-12-2022 11:19-0400 Body mass index (BMI) [Ratio] 20.73 kg/m2 Blaise Marie Work Phone: [facility]el[facility] [place] [facility] Work Phone: 11-12-2022 11:19-0400 Body surface area Derived from formula 1.86 m2 Blaise Marie Work Phone: XL-Rfbmydigwi-Dlzr [facility] [place] [facility] Work Phone: 11-12-2022 11:19-0400 Body weight 67.4 kg Blaise Marie Work Phone: SD-Omxpciwbfv-Rept [facility] [place] [facility] Work Phone: 11-12-2022 10:42-0400 Diastolic blood pressure 64 mm[Hg] Blaise Marie Work Phone: AS-Tykoiqacdw-Nqkl [facility] [place] [facility] Work Phone: 11-12-2022 10:42-0400 Heart rate 89 /min Blaise Marie Work Phone: ZV-Dxohrozanw-Ttvx [facility] [place] [facility] Work Phone: 11-12-2022 10:42-0400 Systolic blood pressure 98 mm[Hg] Blaise Marie Work Phone: SL-Giunwuhhsm-Pinw [facility] [place] [facility] Work Phone: 05-07-2022 10:39-0500 Body mass index (BMI) [Ratio] 20.92 kg/m2 Blaise Beck Cynthia Work Phone: UM-Pnzwtjkznl-[place] [address] DO Work Phone: 05-07-2022 10:39-0500 Body surface area Derived from formula 1.87 m2 Blaise Beck Cynthia Work Phone: OO-Yjfriptvqo-Qvee [place] [address] DO Work Phone: 05-07-2022 10:39-0500 Body weight 68.04 kg Blaise Mcelroyiva Work Phone: JC-Muimpnaxnq-Abzj [place] [address]99 DO Work Phone: 05-07-2022 10:39-0500 Diastolic blood pressure 61 mm[Hg] Blaise Beck Cynthia Work Phone: ZI-Fvvcmeibir-Wlmg [place] [address]99 DO Work Phone: 05-07-2022 10:39-0500 Heart rate 90 /min Blaise Beck Cynthia Work Phone: HS-Homchmttbn-Szll [place] [address]99 DO Work Phone: 05-07-2022 10:39-0500 SaO2% (BldA) [Mass fraction] 98 % Blaise Beck Cynthia Work Phone: OV-Qwzwwtnued-Pruf [place] [address] DO Work Phone: 05-07-2022 10:39-0500 Systolic blood pressure 112 mm[Hg] Blaise Marie Work Phone: EX-Ugfkjynboc-Jxqt [place] [address] DO Work Phone: 09-25-2021 10:13-0400 Body mass index (BMI) [Ratio] 22.32 kg/m2 Blaise Marie Work Phone: DQ-Uonffmwimr-Fwli [place] [address]99 DO Work Phone: 09-25-2021 10:13-0400 Body surface area Derived from formula 1.92 m2 Blaise Marie Work Phone: OL-Kwpysusdws-Vuql [place] [address] DO Work Phone: 09-25-2021 10:13-0400 Body weight 72.57 kg Blaise Marie Work Phone: EO-Lmkbxsllpg-Rppy [place] [address]99 DO Work Phone: 09-25-2021 10:13-0400 Diastolic blood pressure 75 mm[Hg] Blaise Marie Work Phone: AR-Bxtfhnxpaj-Euph [place] [address] DO Work Phone: 09-25-2021 10:13-0400 Heart rate 85 /min Blaise Marie Work Phone: AI-Qapsiadtnj-Zzsz [place] [address] DO Work Phone: 09-25-2021 10:13-0400 SaO2% (BldA) [Mass fraction] 96 % Blaise Marie Work Phone: MW-Udnqvjqwgz-Nkak [place] [address]99 DO Work Phone: 09-25-2021 10:13-0400 Systolic blood pressure 106 mm[Hg] Blaise Marie Work Phone: RT-Gjdaqlhjjc-[place] [address]99 DO Work Phone: 06-12-2021 09:38-0500 0 1 Blaise Marie Work Phone: [facility] Work Phone: Comment on above: [employer] 11-14-2020 10:23-0400 Body height 180.34 cm Blaise Isaacrachael Work Phone: EZ-Uxlovyhdsc-Jvao [place] [address]99 DO Work Phone: 11-14-2020 10:23-0400 Body mass index (BMI) [Ratio] 22.87 kg/m2 Blaise Mcelroyiva Work Phone: [facility] 2099 DO Work Phone: 11-14-2020 10:23-0400 Body surface area Derived from formula 1.94 m2 Blaise Beck Cynthia Work Phone: [facility] 2099 DO Work Phone: 11-14-2020 10:23-0400 Body weight 74.39 kg Blaise Beck Cynthia Work Phone: [facility] 2099 DO Work Phone: 11-14-2020 10:23-0400 Diastolic blood pressure 74 mm[Hg] Blaise Mcelroyiva Work Phone: WT-Swqccgtyet-Cozr [place] [address] DO Work Phone: 11-14-2020 10:23-0400 Systolic blood pressure 116 mm[Hg] Blaise Beck Cynthia Work Phone: [facility] 2099 DO Work Phone: 12-22-2018 13:54-0400 BMI (Body Mass Index) 21.2 kg/m2 Rodriguez Quiroz MS-Ocireth-Rogxyns e 2470 Work Phone: 12-22-2018 13:54-0400 Body weight 68.95 kg Rodriguez Quiroz HC-Piugabl-Anbsy ak e 2470 Work Phone: 12-22-2018 13:54-0400 BP Diastolic 72 mm[Hg] Rodriguez Quiroz YN-Djtoleo-Wznhu ak e 2470 Work Phone: 12-22-2018 13:54-0400 BP Systolic 111 mm[Hg] Rodriguez CERVANTESJT-Qhcilhd-Yozny ak e 2470 Work Phone: 12-22-2018 13:54-0400 BSA (Body Surface Area) 1.88 m2 Rodriguez CERVANTESZR-Hzecedz-Stowoyt e 2470 Work Phone: 12-22-2018 13:54-0400 Height 180.34 cm Rodriguez CERVANTESDT-Zxmqvdw-Opagf ak e 2470 Work Phone: 12-22-2018 13:54-0400 Pulse (Heart Rate) 73 /min Rodriguez CERVANTES-Urology-Jessee winstonlak e 1500 Work Phone: Encounters Encounter Date Encounter Type Care Provider Facility Start: 11-11-2023 End: 11-11-2023 ambulatory [facility]ulatory Start: 10-31-2023 End: 10-31-2023 ambulatory [facility] Start: 10-25-2023 End: 10-25-2023 ambulatory [facility] Start: 09-08-2023 End: 09-08-2023 ambulatory [facility] Start: 09-07-2023 End: 09-07-2023 ambulatory [facility] Start: 08-09-2023 End: 08-09-2023 [facility] Start: 07-19-2023 End: 07-19-2023 ambulatory [facility] Start: 07-04-2023 End: 07-04-2023 ambulatory [facility]ED BY 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) Start: 06-09-2023 End: 06-09-2023 ambulatory [facility] Start: 06-07-2023 End: 06-07-2023 ambulatory [facility] Start: 05-24-2023 End: 05-25-2023 ambulatory [facility] Start: 05-24-2023 End: 05-24-2023 ambulatory [facility] Start: 05-24-2023 End: 05-24-2023 Office outpatient visit 25 minutes Blaise Marie DO Work Phone: [facility] Comment on above: Chronic obstructive pulmonary disease, unspecified COPD type ([facility]) (Primary Dx); Mixed hyperlipidemia; 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 ([facility]); Chronic lymphocytic leukemia of B-cell type not having achieved remission ([facility]); Bronchiectasis; Paroxysmal atrial fibrillation ([facility]); Chronic renal impairment, stage 3a ([facility]) Start: 05-13-2023 End: 05-13-2023 ambulatory [facility] Start: 05-05-2023 End: 05-05-2023 ambulatory [facility] Start: 04-29-2023 Refill Blaise Chadwick Work Phone: [facility] Comment on above: Gastro-esophageal re flux disease without esophagitis Start: 04-29-2023 End: 04-29-2023 Phys/qhp telephone evaluation 21-30 min Rodriguez Quiroz MD Work Phone: [facility] Bo Comment on above: Pneumonia due to Pse udomonas species, unspecified laterality, unspecified part of lung (CMS/HCC) (Primary Dx); Bronchiectasis without complication (CMS/HCC) Start: 04-29-2023 End: 04-29-2023 ambulatory [facility] Start: 04-27-2023 End: 04-27-2023 ambulatory BLAISE Beck [facility] Start: 04-27-2023 End: 04-27-[address] 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) Start: 02-11-2023 End: 02-11-2023 ambulatory S[facility]ON [facility] Ambulatory Start: 02-02-2023 End: 02-02-2023 ambulatory BLAISE MARIE Facility:[facility] Start: 02-02-2023 End: 02-02-2023 Visit (SP) Office Poli Campbell MD Work Phone: Hematology/Oncology Comment on above: Monoclonal B-cell ly mphocytosis (Primary Dx); CLL (chronic lymphocytic leukemia) (HCC); 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 Lilibethharachael Facility:[id number] Start: 08-06-2022 Office outpatient vi sit 25 minutes Blaise Beck Lilibethiva Work Phone: EE-Jhlqucurfl-Exvuyj ke 2100 DO Work Phone: Start: 08-06-2022 Patient encounter procedure Clary Marie Work Phone: LL-Voojhootga-Rpyjih ke 2100 DO Work Phone: Start: 08-06-[address] Lilibethrachael Facility:[id number] Start: 06-10-2022 Chart Update Blaise Marie Work Phone: [facility] Work Phone: Start: 05-20-2022 Chart Update Blaise Beck Ponchorachael Work Phone: [facility] Work Phone: Start: 05-19-2022 Chart Update Blaise Beck Ponchorachael Work Phone: [facility] Work Phone: Start: 05-18-2022 AUDIT Blaise Beck Lilibethiva Work Phone: [facility] Work Phone: Start: 05-10-2022 Chart Update Blaise Marie Work Phone: [facility] Work Phone: Start: 05-07-2022 Office outpatient vi sit 40 minutes Blaise Marie Work Phone: EQ-Lwxogazsre-Htirrd Work Phone: Start: 05-07-2022 Patient encounter procedure Clary Marie Work Phone: MF-Qfwksxttjb-Fzajth ke 2100 DO Work Phone: Start: 05-07-[address] [place] Facility:[id number] Start: 05-05-2022 Encounter for prepro cedural laboratory examination RABIA JACOBSON . [facility] Start: 05-03-2022 End: 05-03-2022 ambulatory RABIA JACOBSON . Facility:[facility]1 Start: 04-30-2022 End: 05-01-2022 ambulatory RABIA JACOBSON . Facility:[facility]1 Start: 04-30-2022 End: 05-01-2022 Encounter for preprocedural laboratory examination RABIA JACOBSON . Facility:[facility]1 Start: 03-19-[address] [place] Facility:[id number] Start: 03-19-2022 Phys/qhp telephone evaluation 21-30 min Blaise Marie Work Phone: [facility] Work Phone: Start: 10-09-2021 Phys/qhp telephone evaluation 21-30 min Blaise Marie Work Phone: [facility] [place] Work Phone: Start: 09-25-2021 Office outpatient vi sit 25 minutes Blaise Marie Work Phone: CK-Fvnfpzhrtw-Sirows ke 2100 DO Work Phone: Start: 07-09-2021 AUDIT Blaise Marie Work Phone: [facility] Work Phone: Start: 06-12-2021 Phys/qhp telephone evaluation 21-30 min Blaise Marie Work Phone: [facility] Work Phone: Start: 05-15-2021 Office outpatient vi sit 15 minutes Blaise Marie Work Phone: XF-Nlmrnbisbz-Bybhqa ke 2100 DO Work Phone: Start: 01-16-2021 Phys/qhp telephone evaluation 21-30 min Blaise Marie Work Phone: [facility]-[place] Work Phone: Start: 12-17-2020 Rx Change Blaise Marie Work Phone: [facility] Work Phone: Start: 11-14-2020 Office outpatient vi sit 25 minutes Blaise Marie Work Phone: FN-Wvsnbziedq-Mudqyv ke 2100 DO Work Phone: Start: 12-22-2018 Patient encounter procedure Rodriguez anderson SQ-Rivtjpi-Wptanoam 2470 Work Phone: Start: 06-16-2018 Patient encounter procedure Rodriguez anderson SA-Vrfghnkcgp-Jadwur Work Phone: Start: 12-23-2017 Patient encounter procedure Rodriguez anderson KD-Ulcwutnjnf-Bcnapx Work Phone: Start: 08-16-2017 Patient encounter procedure Rodriguez anderson WO-Bbazwhocbo-Yxlkar Work Phone: Start: 06-17-2017 Patient encounter procedure Rodriguez anderson WA-Xggilllsry-Aqjmaq Work Phone: Start: 06-07-2017 Patient encounter procedure Rodriguez anderson EH-Gknctfiqlp-Qshyyi Work Phone: Start: 04-29-2017 Patient encounter procedure Rodriguez anderson ZS-Efzwynoobr-Tkkeqd Work Phone: Start: 02-15-2017 Patient encounter procedure Rodriguez anderson LE-Gblkjqnxll-Ryabqe Work Phone: Procedures Date Procedure Procedure Detail Performing Clinician Start: 10-25-2023 Follow-up visit Follow-up ALEXANDER OREILLY Start: 05-24-2023 Adult depression scr eening assessment Blaise Mcelroyiva DO Work Phone: Start: 04-29-2023 FOLLOW UP IN INFECTI OUS DISEASE SWEETIE BURR Start: 04-05-2023 Follow-up visit Follow-up BLAISE MARIE Start: 04-05-2023 Adult depression scr eening assessment Blaise Marie DO Work Phone: Start: 01-30-2020 Cul bact xcpt urine blood/stool aerobic isol Rodriguez Quiroz Start: 12-05-2018 Assay of gammaglobul in iga igd igg igm each Rodriguez Quiroz Start: 12-05-2018 Blood count complete auto&auto difrntl wbc Rodriguez Quiroz Start: 12-05-2018 Comprehensive metabo lic 2000 panel Rodriguez Quiroz Cataract surgery Rodriguez [place] n History of Sinus Surgery Sco vijaya Quiroz History of Thyroid Surgery S horace Quiroz Plan of Treatment Date Care Activity Detail Author Start: 01-21-2033 DTaP,Tdap and Td Vaccines (2 - Td or Tdap) DTaP,Tdap and Td Vaccines (2 - Td or Tdap) [facility] Start: 01-21-2033 DTaP/Tdap/Td Vaccine s (2 - Td or Tdap) DTaP/Tdap/Td Vaccines (2 - Td or Tdap) [facility] Start: 01-21-2033 Urine microalbumin profile DTaP,Tdap,Td Vaccine (2 - Td or Tdap) [facility] Start: 02-02-2026 Diabetes Screening Diabetes Screenin g [facility] Start: 05-24-2024 Adult BMI Screening Adult BMI Screen ing [facility] Start: 05-24-2024 Depression Screening Depression Scre ening [facility] Start: 05-24-2024 Fall Risk Screening Fall Risk Screen ing [facility] Start: 05-24-2024 Tobacco Screening Tobacco Screening [facility] Start: 04-05-2024 Adult BMI Screening Adult BMI Screen ing [facility] Start: 04-05-2024 Depression Screening Depression Scre ening [facility] Start: 04-05-2024 Fall Risk Screening Fall Risk Screen ing [facility] Start: 04-05-2024 Tobacco Screening Tobacco Screening [facility] Start: 02-03-2024 End: 05-04-2024 CBC W Auto Differential panel - Blood CBC + DIFF Lab Routine Monoclonal B-cell lymphocytosis Expected: 02/03/2024 (Approximate), Expires: 05/04/2024 [facility] Work Phone: Comment on above: Expected: 02/03/2024 (Approximate), Expires: 05/04/2024 Start: 02-03-2024 End: 05-04-2024 Comprehensive metabolic 2000 panel - Serum or Plasma COMP METABOLIC PANEL Lab Routine Monoclonal B-cell lymphocytosis Expected: 02/03/2024 (Approximate), Expires: 05/04/2024 [facility] Work Phone: Comment on above: Expected: 02/03/2024 (Approximate), Expires: 05/04/2024 Start: 02-03-2024 End: 05-04-2024 Lactate dehydrogenase [Enzymatic activity/volume] in Serum or Plasma LD LACTATE DEHYDRO Lab Routine Monoclonal B-cell lymphocytosis Expected: 02/03/2024 (Approximate), Expires: 05/04/2024 [facility] Work Phone: Comment on above: Expected: 02/03/2024 (Approximate), Expires: 05/04/2024 Start: 10-25-2023 End: 10-25-2023 Patient encounter procedure 10/25/2023 2:00 PM EDT Office Visit [facility] [address] [place] [id number] Sweetie Burr MD [address] [facility] [place], [address] [place] [address] [facility] [place] Start: 07-19-2023 End: 07-19-2023 Patient encounter procedure 07/19/2023 1:00 PM EDT [facility] [address] [place] [address] [facility] Start: 07-09-2023 Medicare Annual Wellness Visit Medicare Annual Wellness Visit [facility] Start: 04-29-2023 End: 04-29-2023 Telemedicine consultation with patient 04/29/2023 9:20 AM EST Telemedicine [facility] [place] [address] [place] [address] [place] [address] [place] [address] [facility] Bo Start: 04-27-2023 End: 04-27-2023 Patient encounter procedure 04/27/2023 11:00 AM EST Appointment [facility] [address] [place] [address] [facility] Start: 03-02-2023 End: 06-01-2023 PROTEIN ELECTROPHORESIS SERUM W/INTERP PROTEIN ELECTROPHORESIS SERUM W/INTERP Lab Routine Monoclonal B-cell lymphocytosis Expected: 03/02/2023 (Approximate), Expires: 06/01/2023 [facility] Work Phone: Comment on above: Expected: 03/02/2023 (Approximate), Expires: 06/01/2023 Start: 02-24-2023 COVID-19 Vaccine (4 - Pfizer risk series) COVID-19 Vaccine (4 - Pfizer risk series) [facility] Start: 02-24-2023 COVID-19 Vaccine ( season) COVID-19 Vaccine ( season) [facility] Start: 02-24-2023 Covid-19 Vaccine ( season) Covid-19 Vaccine ( season) [facility] Start: 02-24-2023 COVID-19 Vaccine ( season) COVID-19 Vaccine ( season) [facility] Start: 02-11-2023 VIRJEFF, Provider : Sweetie Burr, Status: Pen, Time: 10:30 AM CHERELLE, Provider: Sweetie Burr, Status: Pen, Time: 10:30 AM [facility] [place] [facility] Work Phone: Start: 02-02-2023 End: 05-04-2023 MONOCLONAL PROTEIN, SERUM (BLOOD) [facility] Work Phone: Comment on above: Expected: 02/02/2023 , Expires: 05/04/2023 Start: 11-19-2022 FUV, Provider: Sweetie Burr, Status: Pen, Time: 10:30 AM FUV, Provider: Sweetie Burr, Status: Pen, Time: 10:[address] [facility] [address] DO Work Phone: Start: 08-06-2022 VIRFUVNERYE, Provider : Sweetie Burr, Status: Pen, Time: 10:15 AM VIRFUVHOME, Provider: Sweetie Burr, Status: Pen, Time: 10:15 AM [facility] [address] DO Work Phone: Start: 04-11-2022 Advance Directive Discussion Advance Directive Discussion [facility] Start: 04-11-2022 Depression Assessment Depression Ass essment [facility] Start: 03-26-2022 FUV, Provider: Sweetie Burr, Status: Pen, Time: 10:00 AM FUV, Provider: Sweetie Burr, Status: Pen, Time: 10:[address] [facility] [address] DO Work Phone: Start: 10-09-2021 VIRFUCARLINE, Provider : Rodriguez Quiroz, Status: Pen, Time: 8:20 AM VIRFUVHOME, Provider: Rodriguez Quiroz, Status: Pen, Time: 8:20 AM [facility] Work Phone: Start: 09-25-2021 FUV, Provider: Sweetie Burr, Status: Pen, Time: 10:00 AM FUV, Provider: Sweetie Burr, Status: Pen, Time: 10:00 AM [facility] [place] Work Phone: Start: 06-12-2021 VIRFUVSALVADOR, Provider : Rodriguez Quiroz, Status: Pen, Time: 9:40 AM VIRFUVHOME, Provider: Rodriguez Quiroz, Status: Pen, Time: 9:[address] [facility] [address] DO Work Phone: Start: 05-15-2021 CHERELLE, Provider : Sweetie Burr, Status: Pen, Time: 10:15 AM CHERELLE, Provider: Sweetie Burr, Status: Pen, Time: 10:[address] [facility] [address] DO Work Phone: Start: 1958 Diabetes mellitus screening Diabetes Screening [facility] Start: 1940 Lipid panel Lipid Panel [facility] Start: 1940 Medicare Annual Wellness Visit Medicare Annual Wellness Visit (AWV) [facility] Start: 1940 Thyroid stimulating hormone measurement TSH Level [facility] End: 05-24-2024 CBC panel - Blood by Automated count CBC without diff Lab Routine Chronic obstructive pulmonary disease, unspecified COPD type (CMS-HCC) 1 Occurrences starting 05/24/2023 until 05/24/2024 [employer] Work Phone: Comment on above: 1 Occurrences starti ng 05/24/2023 until 05/24/2024 CBC panel - Blood by Automated count CBC without diff Lab Routine Chronic obstructive pulmonary disease, unspecified COPD type (CMS-HCC) 05/24/2023 9:52 PM EST [employer] CBC W Auto Different ial panel - Blood CBC + DIFF Lab Routine Monoclonal B-cell lymphocytosis 02/02/2023 3:25 PM EDT [facility] Work Phone: End: 08-11-2024 Comprehensive metabolic 2000 panel - Serum or Plasma Comprehensive metabolic panel Lab Routine Bronchiectasis without complication (CMS/HCC) 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) q 3 month for 4 Occurrences starting 02/11/2023 until 08/11/2024 [facility] Work Phone: Comment on above: q 3 month for 4 Occu rrences starting 02/11/2023 until 08/11/2024 End: 02-12-2024 IgG [Mass/volume] in Serum or Plasma IgG Lab Routine Bronchiectasis without complication (CMS/HCC) 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) q 3 months for 4 Occurrences starting 02/11/2023 until 02/12/2024 [facility] Service Area Work Phone: Comment on above: q 3 months for 4 Occ urrences starting 02/11/2023 until 02/12/2024 PROTEIN ELECTROPHORE SIS SERUM W/INTERP PROTEIN ELECTROPHORESIS SERUM W/INTERP Lab Routine Monoclonal B-cell lymphocytosis 02/02/2023 3:25 PM EDT [facility] Work Phone: QF-Ikyfxxxnmm-S temitope na Work Phone: [facility] NEGATED: Highlighted row has been ruled out! Planned Goals not documented YS-Enyiqzlkrz-Uakq na Work Phone: Immunizations Immunization Date Immunization Notes Care Provider [facility] 01-21-2023 respiratory syncytia l virus (RSV) vaccine, adjuvanted (AREXVY) Poli Campbell MD Work Phone: [facility] 01-21-2023 tetanus toxoid, redu leatha diphtheria toxoid, and acellular pertussis vaccine, adsorbed Poli Campbell MD Work Phone: [facility] 12-30-2022 influenza (HD-IIV4) vaccine, age 65+ yr, high dose, quadrivalent, PF (FLUZONE HIGH-DOSE) Poli Campbell MD Work Phone: [facility] 12-30-2022 Pfizer COVID-19 vacc ine, Fall 2022, 12 years and older, (30mcg/0.3mL) Sweetie Burr MD Work Phone: [facility] Work Phone: 10-13-2022 zoster vaccine recombinant Poli Campbell MD Work Phone: [facility] 08-10-2022 zoster vaccine recombinant Poli Campbell MD Work Phone: [facility] 01-06-2022 Fluzone High-Dose Quadrivalent 0.7 ML Intramuscular Suspension Prefilled Syringe Blaise Mcelroyiva Work Phone: [facility] 01-06-2022 Pfizer COVID-19 Vac Bivalent 30 MCG/0.3ML Intramuscular Suspension Blaise Isaacrachael Work Phone: [facility] Work Phone: 08-12-2021 Comirnaty 30 MCG/0.3 ML Intramuscular Suspension Blaise Mcelroyiva Work Phone: [facility] [place] Work Phone: 01-28-2021 Fluad Quadrivalent 0 .5 ML Intramuscular Prefilled Syringe Blaise Beck Cynthia Work Phone: [facility] 01-28-2021 Pfizer-BioNTech COVI D-19 Vacc 30 MCG/0.3ML Intramuscular Suspension Blaise Mcelroyiva Work Phone: [facility] [place] Work Phone: 05-28-2020 Pfizer-BioNTech COVI D-19 Vacc 30 MCG/0.3ML Intramuscular Suspension Blaise Mcelroyiva Work Phone: [facility] Work Phone: 05-05-2020 COVID-19, mRNA, LNP- S, PF, 100mcg/0.5mL Dose Blaise Marie DO Work Phone: [facility] 05-05-2020 Pfizer-BioNTech COVI D-19 Vacc 30 MCG/0.3ML Intramuscular Suspension Blaise Beck Cynthia Work Phone: [facility] 01-11-2020 Fluad Quadrivalent 0 .5 ML Intramuscular Prefilled Syringe Blaise Beck Cynthia Work Phone: [facility] 02-27-2019 pneumococcal polysaccharide vaccine, 23 valent Blaise Ebony Marie Work Phone: [facility] 12-28-2018 AS03 adjuvant Poli Campbell MD Work Phone: [facility] 12-28-2018 Seasonal trivalent influenza vaccine, adjuvanted, preservative free Blaise Mcelroyhas Work Phone: [facility] 01-20-2018 influenza, high dose seasonal, preservative-free Blaise Beck Yuhas Work Phone: [facility] 01-18-2018 influenza, injectabl e, quadrivalent, contains preservative Poli Campbell MD Work Phone: [facility] 04-29-2017 pneumococcal conjuga te vaccine, 13 valent; Translations: [Prevnar 13 Intramuscular Suspension] Rodriguez [facility] Comment on above: Series: 04-11-2017 pneumococcal conjuga te vaccine, 13 valent Blaise Isaacs Work Phone: [facility] 01-23-2017 influenza, injectabl e, quadrivalent, contains preservative Blaise Mcelroyhas Work Phone: [facility] 02-23-2016 influenza, high dose seasonal, preservative-free Blaise Beck Yuhas Work Phone: [facility] 01-29-2015 influenza, high dose seasonal, preservative-free Blaise Beck Yuhas Work Phone: [facility] 02-12-2014 influenza, seasonal, injectable Blaise Beck Yuhas Work Phone: [facility] 02-06-2013 influenza virus vacc ine, whole virus Blaise Isaacs Work Phone: [facility] 01-12-2012 influenza, seasonal, injectable Blaise Beck Yuhas Work Phone: [facility] 06-10-2011 pneumococcal polysaccharide vaccine, 23 valent Blaise Beck Yuhas Work Phone: [facility] Payers Date Payer Category Payer Unknown 2003 Medicare [id number] 1959 Medicare [id number] 1959 Unknown [id number] 1938 Unknown [id number] 2.16.84 0.1.795422.3.579.2.593 1938 Unknown [id number] 2.16.84 0.1.420888.3.579.2.593 1938 Unknown [id number] 2.16. 840.1.754777.3.579.2.356 1938 Unknown [id number] 2.16. 840.1.946694.3.579.2.356 1938 Unknown [id number] 2.16. 840.1.374025.3.579.2.356 1938 Unknown [id number] 2.16. 840.1.656588.3.579.2.356 1938 Unknown [id number] 2.16.8 40.1.763011.3.579.2.1285 1938 Unknown [id number] 2.16.8 40.1.896399.3.579.2.1285 1938 Unknown [id number] 2.16.8 40.1.184002.3.579.2.1285 1938 Unknown [id number] 2.16.8 40.1.129899.3.579.2.1285 1938 Unknown [id number] 2.16.84 0.1.724379.3.579.2.128 1938 Unknown [id number] 2.16.8 40.1.626200.3.579.2.1285 1938 Unknown [id number] 2.16.8 40.1.412992.3.579.2.1285 1938 Unknown [id number] 2.16.8 40.1.779242.3.579.2.1285 1938 Unknown [id number] 2.16.8 40.1.770933.3.579.2.1285 1938 Unknown [id number] 2.16.8 40.1.193647.3.579.2.128 1938 Unknown [id number] 2.16.8 40.1.978138.3.579.2.1285 1938 Unknown [id number] 2.16.8 40.1.869118.3.579.2.128 1938 Unknown [id number] 2.16.8 40.1.417460.3.579.2.1285 1938 Unknown [id number] 2.16.84 0.1.988006.3.579.2.128 1938 Unknown [id number] 2.16.84 0.1.213569.3.579.2.1285 1938 Unknown [id number] 2.16.8 40.1.241615.3.579.2.124 1938 Unknown [id number] 2.16.8 40.1.270652.3.579.2.1243 1938 Unknown [id number] 2.16.8 40.1.560139.3.579.2.1243 1938 Unknown [id number] 2.16.8 40.1.401313.3.579.2.1243 1938 Unknown [id number] 2.16.8 40.1.061259.3.579.2.1243 1938 Unknown [id number] 2.16.8 40.1.976145.3.579.2.1244 Social History Date Type Detail Facility Start: 02-02-2023 End: 03-17-2023 Former smoker Former smoker [facility] Start: 08-14-2021 End: 02-02-2023 Tobacco smoking status NHIS Ex-smoker [facility] History of tobacco use Current smoker [facility] History of tobacco use Cigarette Smoker C [facility] History of tobacco use Passive smoker [facility] Start: 08-14-2021 End: 02-02-2023 Tobacco use and exposure Smokeless tobacco non-user [facility] Start: 10-25-2023 Alcohol intake Ex-drinker (finding) [facility] Start: 02-02-2023 End: 03-17-2023 Tobacco use panel [facility] National Score (1-10 0), lower number is lower risk 87 [facility] Start: 1940 Sex Assigned At Not on file C [facility] Start: 02-11-2023 Tobacco smoking stat us NHIS Never smoked tobacco [facility] Start: 04-05-2023 End: 05-24-2023 Alcohol intake Current drinker of alcohol (finding) [facility] Has the [employer], or [employer] threatened to shut off services in your home in past 12Mo No [facility] Do you belong to any clubs or organizations such as spiritism groups, unions, fraternal or athletic groups, or school groups? Yes [facility] Are you now , , , , never or living with a partner? [facility] How often to you hav e a drink containing alcohol? Monthly or less [facility] How often do you hav e 6 or more drinks on 1 occasion? Never [facility] Do you feel stress - tense, restless, nervous, or anxious, or unable to sleep at night because your mind is troubled all the time - these days [OSQ] Only a little [facility] Start: 03-09-2022 Education 17 [facility] Start: 1940 Sex Assigned At Male P [facility] Start: 04-16-2018 Gender identity Identifies as male gender (finding) [facility] Start: 04-16-2018 Sexual orientation Heterosexual (fin ding) [facility] Start: 04-19-2023 End: 04-29-2023 Exposure to SARS-CoV-2 (event) Not sure [facility] NEGATED: Highlighted row - - FP-Qjxbpmdtuy-Jsltz a Work Phone: Functional Status Date Assessment Result Facility NEGATED: Highlighted row Functional performance Functional status health issues are not documented Disease UO-Lrxzfncual-Hgwab a Work Phone: Mental Status Date Assessment Result Facility NEGATED: Highlighted row Cognitive function [Interpretation] Cognitive status health issues are not documented Disease RO-Whdifqelgf-Moxbp a Work Phone: Clinical Notes 12-10-2018 to 06-19-2023 Assessment & Plan Note - Sweetie Burr MD - 06/19/2023 2:08 PM EDTAssessment & Plan Note - Sweetie Burr MD - 06/19/2023 2:08 PM EDTDagabby Burr MD - 06/14/2023 12:15 PM EST Note Date & Type Note Facility 06-19-2023 Evaluation + Plan note Associated Problem(s): CVID (common variable immunodeficiency) (CMS/HCC) His level is back up to his baseline. His last creatinine was within normal limits. Continue Hizentra 7 g weekly infusions. Obtain IgG level blood work before next appointment in October 2023. [facility] Work Phone: 06-19-2023 Miscellaneous Notes Associated Problem(s): CVID (common variable immunodeficiency) (CMS/HCC) His level is back up to his baseline. His last creatinine was within normal limits. Continue Hizentra 7 g weekly infusions. Obtain IgG level blood work before next appointment in October 2023. documented in this encounter [facility] Work Phone: 06-14-2023 History of Present illness [...] discussion and plan. documented in this encounter [facility] Work Phone: 06-14-2023 Instructions Arabella Singh - 06/14/2023 12:15 PM EST Continue Hizentra 7 g weekly infusions. Obtain IgG level blood work before next appointment in October 2023. Continue 3% sodium chloride nebulizer as needed. Follow up Tuesday at [place], 10-25-2023 at 2:00 pm or sooner if symptoms worsen prior. documented in this encounter [facility] Work Phone: 05-24-2023 History of Present illness Narrative IM PROGRESS NOTE Patient - Rashad Phipps Age - 82 y.o. - 1940 ASSESSMENT & PLAN 1. Chronic obstructive pulmonary disease, unspecified COPD type ([facility]) -currently stable taking Breo once daily. However [...] predominant abnormalities of b-cell numbers and function ([facility]) -receiving Hizentra routinely -overall stable. Keep follow-up with immunology 4. Chronic lymphocytic leukemia of B-cell type not having achieved remission ([facility]) -early stage -no active treatment contemplated at this time. -keep follow-up with Oncology as previously scheduled. Repeat CBC 5. Bronchiectasis -chronic problem which is stable, but with exacerbations several times a year -keep regular follow-up with pulmonology regarding bronchoscopy 6. Paroxysmal atrial fibrillation ([facility]) -rate is currently controlled -continue Xarelto 20 mg daily 7. Chronic renal impairment, stage 3a ([facility]) -renal protective strategies reviewed with the patient [...] urinary frequency/urgency Immunologic: Recently was seen by fish smoker and Infectious Disease. They had no changes [...] Testing No results found. Blaise Marie DO., [facility] Office: [phone] documented in this encounter [facility] 04-29-2023 History of Present illness Narrative Infectious Diseases Clinic Follow-up: Reason for Visit: FOLLOW UP Telephone assessment History of Current Issue Patient was last evaluated 03/19/2022 but several calls and chart updates (05/18/22, 05/19/22 and 06/10/22) Patient has been following regularly with pulmonary medicine in [facility]. Patient currently using a flutter valve and [...] pneumococci. Patient and his report hospitalization at [facility] in March 2023. 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 Patient has had no fever, chills, [...] following more regularly with pulmonary medicine in [facility] (Dr. Jacobson) I have received regular notes from pulmonary [...] see if they would order that at [facility]. Alternatively I can print the requisition and fax to the patient's laboratory near his home. Not urgent but I think it would be helpful to have surveillance cultures of his current respiratory bryson. PLAN: 1. Continue to follow regularly with pulmonary (Dr. Jacobson) 2. I asked patient to see if he could get a sputum culture ordered with pulmonary whom he follows with next week. If not I can send order to [facility] lab. I think it would be helpful [...] information but can call ID office at [phone] I spent 40 minutes in the professional and overall care of this patient. Rodriguez Quiroz MD documented in this encounter [facility] Work Phone: 02-15-2023 Evaluation + Plan note Associated Problem(s): Pseudomonas aeruginosa colonization No growth in current culture from bronchoscopy. I would like him to continue to follow with Dr. Quiroz so he can stay in the loop of his case. That way if he develops another infection ID can give their opinion. [facility] Work Phone: 02-15-2023 Miscellaneous Notes Associated Problem(s): [...] great sign. He is treated by Dr. Jacobson. 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 Jay in the past caused decreased renal function Associated Problem(s): CVID (common variable immunodeficiency) ([facility]/HCC) He will continue his infusions. He is [...] a great sign. documented in this encounter [facility] Work Phone: 02-15-2023 Evaluation + Plan note Associated Problem(s): Bronchiectasis ([facility]) His case is incredibly complicated due to his bronchietasis. He recently underwent a bronchoscopy with clearing of the excessive secretions he develops in his airways.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
--- NOTE | 2023-11-14 11:29 | XR_ITS ---
The [address] [address] Patient Name: BABATUNDE MCNAIR MRN: [id number] date: 1940 Sex: M Assigned Patient Location: [facility] Current Patient Location: [facility] Accession/Order Number: [id number] Exam Date: 11/14/2023 12:08 Report Date: 11/14/2023 15:02 At the request of: RABIA JACOBSON Procedure: XR chest 2V EXAMINATION: XR chest 2V HISTORY: Preop exam COMPARISON: XR chest 01/26/2023, 07/04/2023 FINDINGS: LUNGS: Coarse interstitial markings bilaterally, right greater than left; unchanged. Mild patchy opacities within lateral right lung and lateral left lung base. Slight prominence of the perihilar bronchi and mild bronchial wall thickening. VASCULATURE: No increased pulmonary vasculature. PLEURA: No pneumothorax, effusion, or pleural thickening. CARDIAC: No cardiomegaly or cardiac silhouette abnormality. MEDIASTINUM: No visible mass or adenopathy. BONES: No fracture or visible bone lesion. OTHER: Negative. XR/XR chest 2V IMPRESSION: 1. Suspect mild acute infiltrates and/or bronchiolitis overlying chronic interstitial changes. Findings are slightly greater than previously seen. Electronically authenticated by: FRANCESCA GALICIA Date: 11/14/2023 15:02
[2023-11-14 12:15] LABS: Hematocrit 35.1 % (42.0-54.0); Hemoglobin 11.4 g/dL (14.0-18.0); Mean Corpuscular HGB Conc 32.5 g/dL (29.9-35.2); Mean Corpuscular Hemoglobin 29.8 pg (25.9-34.0); Mean Corpuscular Volume 91.6 fL (80.0-94.0); Mean Platelet Volume 11.4 fL (9.5-13.5); Platelet Count 209 10^3/uL (150-450); Red Blood Count 3.83 10^6/uL (4.70-6.10); Red Cell Distribution Width 13.4 % (11.0-15.0); White Blood Count 25.5 10^3/uL (4.0-11.0)
[2023-11-14 12:28] LABS: Anion Gap 12.6; Calcium 9.1 mg/dL (8.5-10.1); Carbon Dioxide 27.3 mmol/L (21.0-32.0); Chloride 98 mmol/L (98-107); Estimated GFR (African America >60 (>=60); Estimated GFR (Non-African Ame 51 (>=60); Glucose 81 mg/dL (74-106); Potassium 3.9 mmol/L (3.5-5.1); Sodium 134 mmol/L (136-145)
[2023-11-14 12:36] LABS: INR 1.38; Prothrombin Time 14.2 sec (9.0-11.6)
[2023-11-14 13:06] LABS: Band Neutrophils Absolute 0.3 10^3/uL (0.0-0.3); Lymphocytes Absolute Manual 6.37 10^3/uL (1.20-3.80); Monocytes Absolute Manual 1.53 10^3/uL (0.30-0.80); Segmented Neut Absolute Manual 17.34 10^3/uL (1.4-6.5)
[2023-11-14 13:08] LABS: Anisocytosis 1+; Ovalocytes 1+
== END 2023-11-14 10:58 | disposition home or self-care (01) ==
LOC: PST 10:58
PROVIDERS: PCP Internal Medicine; Visit Provider Internal Medicine
DX: Z01.810 Encounter for preprocedural cardiovascular examination (principal); Z01.812 Encounter for preprocedural laboratory examination; J47.9 Bronchiectasis, uncomplicated; R91.8 Other nonspecific abnormal finding of lung field
CPT/HCPCS: 36415; 71046; 80048; 85007; 85027; 85610; 85730

== ENCOUNTER 2023-11-16 11:01 | Day surgery (SDC) | payer MEDICARE, OTHER, SELFPAY ==
[2023-11-14 11:45] VITALS: BP 90/59; PULSE 87; TEMP 36.6; O2SAT 92; BMI 20.7
[2023-11-16] VITALS (10 sets, daily range): BP systolic 80–119; BP diastolic 65–78; PULSE 86–105; TEMP 36.2; O2SAT 92–99; BMI 20.2
--- OUTSIDE RECORDS SUMMARY | 2023-11-16 11:07 | XMS_ITS | CCD ---
Author Organization [facility] Care Team Providers Care Field Service Consultant Name Role Phone Rodriguez Quiroz Unavailable Unavailable [...] Blaise Mcmahan Referring Unavaila ble Cynthia, Dr. Bliase Mcmahan Primary Care Unavaila MD SWEETIE Cowan Attending Unavailable Blaise Marie Primary Care Provider BLAISE MARIE Referring Unavailable BLAISE MARIE Primary Care Unavailable POLI CAMPBELL Attending Unavailable BLAISE MARIE Primary Care Unavailable Blaise Marie DO Primary Care Provider [phone] Blaise Marie DO Primary Care Provider PONCHOS, BLAISE L Attending Unavailable YUHAS, BLAISE [...] Unavailable LENOSWEETIE VACA Referring Unavailable YUHAS, BLAISE eBck Primary Care Unavailable SWEETIE BURR Attending Unavailable [...] rivaroxaban; Translations: [Xarelto TABS] Drug Allergy 6 [facility] Work Phone: Sulfonamides (antibiotic) (1 source) Sulfonamides (Antibiotic); Translations: [Sulfa Drugs] Drug Allergy Rash [facility] 2100 DO Work Phone: (20 sources) fish, unspecified allergy to substance [facility] Work Phone: (20 sources) Penicillins; Translations: [Penicillins] drug allergy 7 [facility] 3 Repository (17 sources) rivaroxaban; Translations: [Xarelto TABS] Drug Allergy 6 Unknown [facility] (20 sources) Sulfonamides (Antibiotic); Translations: [Sulfa Drugs] drug allergy Rash [facility] Work Phone: (5 sources) apixaban; Translations: [APIXABAN] Drug Allergy 6 [facility] Repository (5 sources) edoxaban; Translations: [EDOXABAN] Drug Allergy 6 [facility] Repository (1 source) Fish derivative Drug allergy (disorder) [facility] Repository (1 source) Penicillin Drug Allergy [facility] Repository (1 source) Sulfonamides (Antibiotic) Drug allergy (disorder) [facility] Repository (9 sources) apixaban Drug Allergy 6 Itching [facility] (9 sources) edoxaban Drug Allergy 6 Unknown [facility] (5 sources) Fish; Translations: [FISH CONTAINING PRODUCTS] Drug Allergy 3 Unknown [facility] (4 sources) levoFLOXacin; Translations: [LEVOFLOXACIN] Drug Allergy 3 Unknown [facility] (4 sources) Penicillins Drug Allergy 7 [facility] (13 sources) Sulfonamides (Antibiotic); Translations: [SULFA (SULFONAMIDE ANTIBIOTICS)] Drug Allergy 7 Itching, Rash [facility] (1 source) rivaroxaban; Translations: [RIVAROXABAN] Drug Allergy 6 [facility] 3 Repository Medications Current Medications Medication Drug [...] Comment on above: INHALE 1 VIAL BY [facility] 3 TIMES DAILY 30 actuat umeclidinium 0.0625 mg/actuat / vilanterol 0.025 mg/actuat dry powder inhaler (4 sources) Anticholinergic, beta2-Adrenergic Agonist Start: take 1 puff(s) by inhalation in the morning umeclidinium-vilante roL (ANORO ELLIPTA) 62.5-25 mcg/actuation blister with device Indications: Chronic obstructive pulmonary disease, unspecified COPD type ([facility]) Inhale 1 puff in the [...] day. 0 12/23/2017 02/11/2023 Discontinued (Therapy completed) [id number] 0.3 ml EPINEPHrine 1 mg/ml auto-injector (6 [...] THEN 14 DAYS OFF - REFILLS CALL: [phone] Quantity: 16 Refills: 12 Ordered: 19-Mar-2022 Rodriguez Quiroz MD Start : 17-Dec-2020 Active YES, OK TO DISPENSE 16 AMPULES Start: 06-02-2015 Tobramycin 300 MG/5ML Inhalation Nebulization Solution INHALE THE CONTENTS OF 1 AMPULE VIA NEBULIZER DAILY FOR 14 DAYS ON, THEN 14 DAYS OFF - REFILLS CALL: [phone] Quantity: 14 Refills: 6 Ordered: 15-Apr-2020 Rodriguez [...] 7 02-10-2023 Chronic Other aftercare (1 source) [facility] (current) use of anticoagulants; Translations: [GROUP HOME CURRNT USE 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] Onset: 3 Episodic Other aftercare (1 source) [facility] (current) drug therapy; Translations: [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 THERAPY] Onset: 3 Episodic Other [...] (5 sources) Drug therapy finding; Translations: [Other [facility] (current) drug therapy] Onset: 04-19-2018 Resolved: 06-01-2019 [...] 10-25-2023 IgG [Mass/Vol] 795 mg/dL Normal 635-1741 [facility] Comment on above: Performed By: #### 2 465-3 #### [facility] ([id number]) [address], [address] [place] [address] BASIC METABOLIC PANLon 09-06 Anion gap [Moles/Vol] 7 mmol/L Normal 5-15 [facility] Comment on above: Performed By: #### C BCA, BMP #### [facility] ([id number]) [address], [address] [place] [address] Calcium [Mass/Vol] 9.0 mg/dL Normal 8.5-10.5 [facility] Comment on above: Performed By: #### C BCA, BMP #### [facility] ([id number]) [address], [address] [place] [address] Chloride [Moles/Vol] 95 mmol/L Low 98-109 [facility] Comment on above: Performed By: #### C BCA, BMP #### [facility] ([id number]) [address], [address] [place] [address] CO2 [Moles/Vol] 26 mmol/L Normal 22-32 [facility] Comment on above: Performed By: #### C BCA, BMP #### [facility] ([id number]) [address], [address] [place] [address] Creatinine [Mass/Vol] 1.38 mg/dL High 0.60-1.30 [facility] Comment on above: Result Comment: METH OD TRACEABLE TO IDMS STANDARD Performed By: #### C BCA, BMP #### [facility] ([id number]) [address] [address] [place] [address] GFR/1.73 sq M.predicted among non-blacks MDRD (S/P/Bld) [Vol rate/Area] 50 mL/min/{1.73_m2} Low >59 [facility] Comment on above: Result Comment: Reported eGFR is based on the CKD-EPI 2020 equation that does not use a race coefficient. Performed By: #### C CATRACHITO, BMP #### [facility] ([id number]) [address] [address] Glucose [Mass/Vol] 83 mg/dL Normal 65-99 [facility] Comment on above: Performed By: #### C CATRACHITO, BMP #### [facility] ([id number]) [address] [address] Potassium [Moles/Vol] 4.3 mmol/L Normal 3.5-5.0 [facility] Comment on above: Performed By: #### C CATRACHITO, BMP #### [facility] ([id number]) [address] [address] Sodium [Moles/Vol] 128 mmol/L Low 134-146 [facility] Comment on above: Performed By: #### C BCA, BMP #### [facility] ([id number]) [address] [address] Urea nitrogen [Mass/Vol] 24 mg/dL Normal 5-27 [facility] Comment on above: Performed By: #### C BCA, BMP #### [facility] ([id number]) [address] [address] CBC AND AUTO DIFFon 09-07-19 24 ACANTHOCYTE 1+ Abnormal NONE [facility] Comment on above: Performed By: #### C BCA, BMP #### [facility] ([id number]) [address], [address] [place] [address] YULY 1+ Abnormal NONE [facility] Comment on above: Performed By: #### C CATRACHITO, BMP #### [facility] ([id number]) [address], [address] [place] [address] Eosinophils (Bld) [#/Vol] 0.5 10*3/uL High 0.0-0.4 [facility] Comment on above: Performed By: #### C CATRACHITO, BMP #### [facility] ([id number]) [address] [place] [address] Eosinophils/100 WBC (Bld) 2.0 % Normal [facility] Comment on above: Performed By: #### C CATRACHITO, BMP #### [facility] ([id number]) [address] [place] [address] Erythrocyte distribution width (RBC) [Ratio] 14.3 % Normal 11.5-15.0 [facility] Comment on above: Performed By: #### C CATRACHITO, BMP #### [facility] ([id number]) [address], [address] [place] [address] Hematocrit (Bld) [Volume fraction] 33.4 % Low 39-49 [facility] Comment on above: Performed By: #### C CATRACHITO, BMP #### [facility] ([id number]) [address] [place] [address] Hemoglobin (Bld) [Mass/Vol] 11.2 g/dL Low 13.0-17.0 [facility] Comment on above: Performed By: #### C CATRACHITO, BMP #### [facility] ([id number]) [address], [address] [place] [address] Lymphocytes (Bld) [#/Vol] 5.0 10*3/uL High 1.0-3.5 [facility] Comment on above: Performed By: #### C BCA, BMP #### [facility] ([id number]) [address], [address] [place] [address] Lymphocytes/100 WBC (Bld) 22.0 % Normal [facility] Comment on above: Performed By: #### C BCA, BMP #### [facility] ([id number]) [address] [place] [address] MCH (RBC) [Entitic mass] 30.4 pg Normal 27-34 [facility] Comment on above: Performed By: #### C BCA, BMP #### [facility] ([id number]) [address], [address] [place] [address] MCHC (RBC) [Mass/Vol] 33.6 g/dL Normal 32-36 [facility] Comment on above: Performed By: #### C BCA, BMP #### [facility] ([id number]) [address], [address] [place] [address] MCV (RBC) [Entitic vol] 90 fL Normal 80-100 [facility] Comment on above: Performed By: #### C BCA, BMP #### [facility] ([id number]) [address] [place] [address] Monocytes (Bld) [#/Vol] 1.8 10*3/uL High 0-0.9 [facility] Comment on above: Performed By: #### C BCA, BMP #### [facility] ([id number]) [address], [address] [place] [address] Monocytes/100 WBC (Bld) 8.0 % Normal [facility] Comment on above: Performed By: #### C BCA, BMP #### [facility] ([id number]) [address], [address] [place] [address] MYELOCYTE 1.0 % Normal [facility] Comment on above: Performed By: #### C CATRACHITO, BMP #### [facility] ([id number]) [address], [address] [place] [address] Neutrophils (Bld) [#/Vol] 15.0 10*3/uL High 1.5-6.6 [facility] Comment on above: Performed By: #### C CATRACHITO, BMP #### [facility] ([id number]) [address] [place] [address] OVALOCYTE 1+ Abnormal NONE [facility] Comment on above: Performed By: #### Jeronimo WINSTON, BMP #### [facility] ([id number]) [address], [address] [place] [address] Platelet mean volume (Bld) [Entitic vol] 9.4 fL Normal 7-12 [facility] Comment on above: Performed By: #### Jeronimo WINSTON, BMP #### [facility] ([id number]) [address], [address] [place] [address] Platelets (Bld) [#/Vol] 234 10*3/uL Normal 150-450 [facility] Comment on above: Performed By: #### Jeronimo WINSTON, BMP #### [facility] ([id number]) [address] [place] [address] RBC COUNT 3.70 X10E12/L Low 4.10-5.70 [facility] Comment on above: Performed By: #### C CATRACHITO, BMP #### [facility] ([id number]) [address], [address] [place] [address] SEG NEUTROPHIL 67.0 % Normal [facility] Comment on above: Performed By: #### Jeronimo WINSTON, BMP #### [facility] ([id number]) [address], [address] [place] [address] WBC (Bld) [#/Vol] 22.5 10*3/uL High 4.0-11.0 [facility] Comment on above: Performed By: #### C BCA, BMP #### [facility] ([id number]) [address], [address] [place] [address] XR CHEST 2 VWSon 07-05-2023 XR CHEST 2 VWS XR CHEST 2 VWS CHEST 2 VIEWS HISTORY: Bronchiectasis COMPARISON: CT chest 04/27/2023 IMPRESSION: * Extensive bronchiectasis in each lung with associated bronchial wall thickening, right worse than left. * No pleural effusions or pneumothorax. Finalized by Rabia Dias MD on 07/05/2023 7:54 AM Normal [facility] IGGon 06-09-2023 IgG [Mass/Vol] 826 mg/dL Normal 635-1741 [facility] Comment on above: Performed By: #### 2 465-3 #### [facility] ([id number]) [address] [place] [address] COMPREHENSIVE METABOLIC PANE Frank 06-07-2023 Albumin [Mass/Vol] 3.7 g/dL Normal 3.2-5.3 [facility] Comment on above: Performed By: #### C MP #### [facility] ([id number]) [address] [place] [address] ALP [Catalytic activity/Vol] 115 U/L Normal 39-130 [facility] Comment on above: Performed By: #### C MP #### [facility] ([id number]) [address], [address] [place] [address] ALT [Catalytic activity/Vol] 10 U/L Normal 0-40 [facility] Comment on above: Performed By: #### C MP #### [facility] ([id number]) [address], [address] [place] [address] Anion gap [Moles/Vol] 8 mmol/L Normal 5-15 [facility] Comment on above: Performed By: #### C MP #### [facility] ([id number]) [address], [address] [place] [address] AST [Catalytic activity/Vol] 16 U/L Normal 0-41 [facility] Comment on above: Performed By: #### C MP #### [facility] ([id number]) [address], [address] [place] [address] Bilirubin [Mass/Vol] 0.7 mg/dL Normal 0.3-1.2 [facility] Comment on above: Performed By: #### C MP #### [facility] ([id number]) [address], [address] [place] [address] Calcium [Mass/Vol] 9.1 mg/dL Normal 8.5-10.5 [facility] Comment on above: Performed By: #### C MP #### [facility] ([id number]) [address], [address] [place] [address] Chloride [Moles/Vol] 96 mmol/L Low 98-109 [facility] Comment on above: Performed By: #### C MP #### [facility] ([id number]) [address], [address] [place] [address] CO2 [Moles/Vol] 28 mmol/L Normal 22-32 [facility] Comment on above: Performed By: #### C MP #### [facility] ([id number]) [address], [address] [place] [address] Creatinine [Mass/Vol] 1.18 mg/dL Normal 0.60-1.30 [facility] Comment on above: Result Comment: METH OD TRACEABLE TO IDMS STANDARD Performed By: #### C MP #### [facility] ([id number]) [address], [address] [place] [address] GFR/1.73 sq M.predicted among non-blacks MDRD (S/P/Bld) [Vol rate/Area] 61 mL/min/{1.73_m2} Normal >59 [facility] Comment on above: Result Comment: Reported eGFR is based on the CKD-EPI 2020 equation that does not use a race coefficient. Performed By: #### C MP #### [facility] ([id number]) [address], [address] [place] [address] Glucose [Mass/Vol] 88 mg/dL Normal 65-99 [facility] Comment on above: Performed By: #### C MP #### [facility] ([id number]) [address] [address] [place] [address] Potassium [Moles/Vol] 3.8 mmol/L Normal 3.5-5.0 [facility] Comment on above: Performed By: #### C MP #### [facility] ([id number]) [address] [place] [address] Protein [Mass/Vol] 6.0 g/dL Normal 6.0-8.0 [facility] Comment on above: Performed By: #### C MP #### [facility] ([id number]) [address], [address] [place] [address] Sodium [Moles/Vol] 132 mmol/L Low 134-146 [facility] Comment on above: Performed By: #### C MP #### [facility] ([id number]) [address], [address] [place] [address] Urea nitrogen [Mass/Vol] 20 mg/dL Normal 5-27 [facility] Comment on above: Performed By: #### C MP #### [facility] ([id number]) [address], [address] [place] [address] COMPLETE BLOOD COUNTon 05-24 Erythrocyte distribution width (RBC) [Ratio] 14.9 % Normal 11.5-15.0 [facility] Comment on above: Performed By: #### C BC #### [facility] ([id number]) [address], [address] [place] [address] Hematocrit (Bld) [Volume fraction] 38.7 % Low 39-49 [facility] Comment on above: Performed By: #### C BC #### [facility] ([id number]) [address], [address] [place] [address] Hemoglobin (Bld) [Mass/Vol] 12.5 g/dL Low 13.0-17.0 [facility] Comment on above: Performed By: #### C BC #### [facility] ([id number]) [address] [place] [address] MCH (RBC) [Entitic mass] 29.6 pg Normal 27-34 [facility] Comment on above: Performed By: #### C BC #### [facility] ([id number]) [address] [place] [address] MCHC (RBC) [Mass/Vol] 32.2 g/dL Normal 32-36 [facility] Comment on above: Performed By: #### C BC #### [facility] ([id number]) [address], [address] [place] [address] MCV (RBC) [Entitic vol] 92 fL Normal 80-100 [facility] Comment on above: Performed By: #### C BC #### [facility] ([id number]) [address], [address] [place] [address] Platelet mean volume (Bld) [Entitic vol] 9.5 fL Normal 7-12 [facility] Comment on above: Performed By: #### C BC #### [facility] ([id number]) [address], [address] [place] [address] Platelets (Bld) [#/Vol] 244 10*3/uL Normal 150-450 [facility] Comment on above: Performed By: #### C BC #### [facility] ([id number]) [address], [address] [place] [address] RBC COUNT 4.21 X10E12/L Normal 4.10-5.70 [facility] Comment on above: Performed By: #### C BC #### [facility] ([id number]) [address] [place] [address] WBC (Bld) [#/Vol] 23.5 10*3/uL High 4.0-11.0 [facility] Comment on above: Performed By: #### C BC #### [facility] ([id number]) [address] [place] [address] COMPREHENSIVE METABOLIC PANE Frank 05-24-2023 Albumin [Mass/Vol] 3.8 g/dL Normal 3.2-5.3 [facility] Comment on above: Performed By: #### Jeronimo VANEGAS, 97533-0 #### [facility] ([id number]) [address] [place] [address] ALP [Catalytic activity/Vol] 112 U/L Normal 39-130 [facility] Comment on above: Performed By: #### Jeronimo VANEGAS, 65419-0 #### [facility] ([id number]) [address], [address] [place] [address] ALT [Catalytic activity/Vol] 10 U/L Normal 0-40 [facility] Comment on above: Performed By: #### Jeronimo VANEGAS, 81729-4 #### [facility] ([id number]) [address] [place] [address] Anion gap [Moles/Vol] 6 mmol/L Normal 5-15 [facility] Comment on above: Performed By: #### Jeronimo VANEGAS, 03888-5 #### [facility] ([id number]) [address] [place] [address] AST [Catalytic activity/Vol] 17 U/L Normal 0-41 [facility] Comment on above: Performed By: #### Jeronimo VANEGAS, 34158-8 #### [facility] ([id number]) [address] [place] [address] Bilirubin [Mass/Vol] 0.8 mg/dL Normal 0.3-1.2 [facility] Comment on above: Performed By: #### Jeronimo VANEGAS, 10692-7 #### [facility] ([id number]) [address] [place] [address] Calcium [Mass/Vol] 9.6 mg/dL Normal 8.5-10.5 [facility] Comment on above: Performed By: #### Jeronimo VANEGAS, 64629-0 #### [facility] ([id number]) [address] [place] [address] Chloride [Moles/Vol] 97 mmol/L Low 98-109 [facility] Comment on above: Performed By: #### Jeronimo VANEGAS, 49201-5 #### [facility] ([id number]) [address] [place] [address] CO2 [Moles/Vol] 30 mmol/L Normal 22-32 [facility] Comment on above: Performed By: #### eJronimo VANEGAS, 43824-2 #### [facility] ([id number]) [address] [place] [address] Creatinine [Mass/Vol] 1.22 mg/dL Normal 0.60-1.30 [facility] Comment on above: Result Comment: METH OD TRACEABLE TO IDMS STANDARD Performed By: #### Jeronimo VANEGAS, 61943-3 #### [facility] ([id number]) [address] [place] [address] GFR/1.73 sq M.predicted among non-blacks MDRD (S/P/Bld) [Vol rate/Area] 58 mL/min/{1.73_m2} Low >59 [facility] Comment on above: Result Comment: Reported eGFR is based on the CKD-EPI 2020 equation that does not use a race coefficient. Performed By: #### Jeronimo VANEGAS, 03695-0 #### [facility] ([id number]) [address] [place] [address] Glucose [Mass/Vol] 94 mg/dL Normal 65-99 [facility] Comment on above: Performed By: #### Jeronimo VANEGAS, 21208-4 #### [facility] ([id number]) [address] [place] [address] Potassium [Moles/Vol] 4.1 mmol/L Normal 3.5-5.0 [facility] Comment on above: Performed By: #### Jeronimo VANEGAS, 08489-0 #### [facility] ([id number]) [address] [place] [address] Protein [Mass/Vol] 6.7 g/dL Normal 6.0-8.0 [facility] Comment on above: Performed By: #### Jeronimo VANEGAS, 33647-7 #### [facility] ([id number]) [address] [place] [address] Sodium [Moles/Vol] 133 mmol/L Low 134-146 [facility] Comment on above: Performed By: #### Jeronimo VANEGAS, 34813-3 #### [facility] ([id number]) [address] [address] [place] [address] Urea nitrogen [Mass/Vol] 17 mg/dL Normal 5-27 [facility] Comment on above: Performed By: #### Jeronimo VANEGAS, 49748-2 #### [facility] ([id number]) [address] [place] [address] Comprehensive metabolic pane frank 05-24-2023 Albumin [Mass/Vol] 3.8 g/dL 3.2 - 5.3 g/dL [facility] ALP [Catalytic activity/Vol] 112 U/L 39 - 130 U/L [facility] ALT No additional P-5'-P [Catalytic activity/Vol] 10 U/L 0 - 40 U/L [facility] Anion gap [Moles/Vol] 6 mmol/L 5 - 15 mmol/L [facility] AST [Catalytic activity/Vol] 17 U/L 0 - 41 U/L [facility] Bilirubin [Mass/Vol] 0.8 mg/dL 0.3 - 1.2 mg/dL [facility] Calcium [Mass/Vol] 9.6 mg/dL 8.5 - 10. 5 mg/dL [facility] Chloride [Moles/Vol] 97 mmol/L Low 98 - 109 mmol/L [facility] CO2 [Moles/Vol] 30 mmol/L 22 - 32 mmol/L [facility] Creatinine [Mass/Vol] 1.22 mg/dL 0.60 - 1.30 mg/dL [facility] Comment on above: METHOD TRACEABLE TO [facility] STANDARD eGFR (CKD-EPI)non-race dependent 58 Low - PINF [facility] Comment on above: Reported eGFR is based on the CKD-EPI 2020 equation that does not use a race coefficient. Glucose [Mass/Vol] 94 mg/dL 65 - 99 mg/dL [facility] Potassium [Moles/Vol] 4.1 mmol/L 3.5 - 5.0 mmol/L [facility] Protein [Mass/Vol] 6.7 g/dL 6.0 - 8.0 g/dL [facility] Sodium [Moles/Vol] 133 mmol/L Low 134 - 146 mmol/L [facility] Urea nitrogen [Mass/Vol] 17 mg/dL 5 - 27 mg/dL [facility] Lipid 1996 panelon Cholesterol [Mass/Vol] 98 mg/dL Low 150 - 200 mg/dL [facility] Cholesterol in HDL [Mass/Vol] 45 mg/dL 39 - PINF mg/dL [facility] Comment on above: HDL <40 mg/dL - High Risk HDL > or = 40mg/dL- Desirable HDL >60 mg/dL - Negative Risk Cholesterol in LDL [Mass/Vol] 40 mg/dL NINF - 130 mg/dL [facility] Comment on above: LDL <100 mg/dL - Desirable LDL >160 mg/dL - High Risk Cholesterol in VLDL [Mass/Vol] 13 mg/dL 0 - 30 mg/dL [facility] Cholesterol.total/ Cholesterol in HDL [Mass ratio] 2.2 {ratio} 1.0 - 5.[address] [facility] Triglyceride [Mass/Vol] 63 mg/dL 27 - 150 mg/dL [facility] Cholesterol [Mass/Vol] 98 mg/dL Low 150-200 [facility] Comment on above: Performed By: #### Jeronimo VANEGAS, 54423-7 #### [facility] ([id number]) [address], [address] [place] [address] Cholesterol in HDL [Mass/Vol] 45 mg/dL Normal >39 [facility] Comment on above: Result Comment: HDL <40 mg/dL - High Risk HDL > or = 40mg/dL- Desirable HDL >60 mg/dL - Negative Risk Performed By: #### Jeronimo VANEGAS, 17212-7 #### [facility] ([id number]) [address], [address] [place] [address] Cholesterol in LDL [Mass/Vol] 40 mg/dL Normal <130 [facility] Comment on above: Result Comment: LDL <100 mg/dL - Desirable LDL >160 mg/dL - High Risk Performed By: #### Jeronimo VANEGAS, 10608-9 #### [facility] ([id number]) [address] [address] Cholesterol in VLDL [Mass/Vol] 13 mg/dL Normal 0-30 [facility] Comment on above: Performed By: #### Jeronimo VANEGAS, 99036-8 #### [facility] ([id number]) [address] [address] CHOLESTEROL:HDL 2.2 Normal 1.0-5.0 [facility] Comment on above: Performed By: #### Jeronimo VANEGAS, 20383-0 #### [facility] ([id number]) [address] [address] Triglyceride [Mass/Vol] 63 mg/dL Normal 27-150 [facility] Comment on above: Performed By: #### Jeronimo VANEGAS, 37660-4 #### [facility] ([id number]) [address] [address] No Panel Informationon 05-24 Interpretation and review of laboratory results Abnormal [facility] IGGon 05-05-2023 IgG [Mass/Vol] 748 mg/dL Normal 635-1741 [facility] Comment on above: Performed By: #### 2 465-3 #### [facility] ([id number]) [address] [address] [address] CHEST W CONTon 04-29-2023 CT CHEST [...] Cleaning MD on 04/29/2023 8:54 AM Normal [facility] CBC W Auto Differential pane l (Bld)on 02-02-2023 Basophils (Bld) [#/Vol] 0.09 10*3/uL Normal <0.11 [facility] Comment on above: Order Comment: Speci men Type: BLOOD SPECIMEN Ordering Facility: [facility] Address: [address] [place] [address] Performed By: #### 5 7021-8 #### [facility] CLIA [id number] [address] [place] [address] LAB CLIA [id number] [address] [place] [address] [place] #### [id number] #### [facility] CLIA [id number] [address] [place] [address] [place] Basophils/100 WBC (Bld) 0.4 % Normal [facility] Comment on above: Order Comment: Speci men Type: BLOOD SPECIMEN Ordering Facility: [facility] Address: [address] [place] [address] Performed By: #### 5 7021-8 #### [facility] CLIA [id number] [address] [place] [address] LAB CLIA [id number] [address] [place] [address] [place] #### [id number] #### [facility] CLIA [id number] [address] [place] [address] [place] Eosinophils (Bld) [#/Vol] 0.63 10*3/uL High <0.46 [facility] Comment on above: Order Comment: Speci men Type: BLOOD SPECIMEN Ordering Facility: [facility] Address: [address] [place] [address] Performed By: #### 5 7021-8 #### [facility] CLIA [id number] [address] [place] [address] LAB CLIA [id number] [address] [place] [address] [place] #### [id number] #### [facility] CLIA [id number] [address] [place] [address] [place] Eosinophils/100 WBC (Bld) 2.6 % Normal [facility] Comment on above: Order Comment: Speci men Type: BLOOD SPECIMEN Ordering Facility: [facility] Address: [address] [place] [address] Performed By: #### 5 7021-8 #### [facility] CLIA [id number] [address] [place] [id number] [facility] CLIA [id number] [address] [place] [address] [place] #### [id number] #### [facility] CLIA [id number] [address] [place] [address] [place] Erythrocyte distribution width (RBC) [Ratio] 13.2 % Normal 11.5-15.0 [facility] Comment on above: Order Comment: Speci men Type: BLOOD SPECIMEN Ordering Facility: [facility] Address: [address] [place] [address] Performed By: #### 5 7021-8 #### [facility] CLIA [id number] [address] [place] [id number] [facility] CLIA [id number] [facility] [place] [address] [place] #### [id number] #### [facility] CLIA [id number] [address] [place] [address] [place] Hematocrit (Bld) [Volume fraction] 36.3 % Low 39.0-51.0 [facility] Comment on above: Order Comment: Speci men Type: BLOOD SPECIMEN Ordering Facility: [facility] Address: [address] [place] [address] Performed By: #### 5 7021-8 #### [facility] CLIA [id number] [address] [address] [facility] CLIA [id number] [address] [place] [address] [place] #### [id number] #### [facility] CLIA [id number] [address] [place] [place] [id number] [place] Hemoglobin (Bld) [Mass/Vol] 11.6 g/dL Low 13.0-17.0 [facility] Comment on above: Order Comment: Speci men Type: BLOOD SPECIMEN Ordering Facility: [facility] Address: [address] [place] [address] Performed By: #### 5 7021-8 #### [facility] CLIA [id number] [address] [place] [address] LAB CLIA [id number] [address] [place] [address] [place] #### [id number] #### [facility] CLIA [id number] [address] [place] [address] [place] Immature granulocytes (Bld) [#/Vol] 0.20 10*3/uL High <0.10 [facility] Comment on above: Order Comment: Speci men Type: BLOOD SPECIMEN Ordering Facility: [facility] Address: [address] [place] [address] Performed By: #### 5 7021-8 #### [facility] CLIA [id number] [address] [place], [place] [address] [facility] CLIA [id number] [address] [place] [address] [place] #### [id number] #### [facility] CLIA [id number] [address] [place] [address] [place] Immature granulocytes/100 WBC (Bld) 0.8 % Normal [facility] Comment on above: Order Comment: Speci men Type: BLOOD SPECIMEN Ordering Facility: [facility] Address: [address] [place] [id number] Performed By: #### 5 7021-8 #### [facility] CLIA [id number] [address] [place], [place] [address] [facility] CLIA [id number] [address] [place] [address] [place] #### [id number] #### [facility] CLIA [id number] [address] [place] [place] [id number] [place] Lymphocytes (Bld) [#/Vol] 6.62 10*3/uL High 1.00-4.00 [facility] Comment on above: Order Comment: Speci men Type: BLOOD SPECIMEN Ordering Facility: [facility] Address: [address] [place] [address] Performed By: #### 5 7021-8 #### [facility] CLIA [id number] [address] [place] [address] LAB CLIA [id number] [address] [place] [address] [place] #### [id number] #### [facility] CLIA [id number] [address] [place] [id number] [place] Lymphocytes/100 WBC (Bld) 27.1 % Normal [facility] Comment on above: Order Comment: Speci men Type: BLOOD SPECIMEN Ordering Facility: [facility] Address: [address] [place] [id number] Performed By: #### 5 7021-8 #### [facility] CLIA [id number] [address] [place], [place] [address] [facility] CLIA [id number] [address] [place] [address] [place] #### [id number] #### [facility] CLIA [id number] [address] [place] [address] [place] MCH (RBC) [Entitic mass] 29.5 pg Normal 26.0-34.0 [facility] Comment on above: Order Comment: Speci men Type: BLOOD SPECIMEN Ordering Facility: [facility] Address: [address] [place] [address] Performed By: #### 5 7021-8 #### [facility] CLIA [id number] [address] [place] [address] LAB CLIA [id number] [address] [place] [address] [place] #### [id number] #### [facility] CLIA [id number] [address] [place] [address] [place] MCHC (RBC) [Mass/Vol] 32.0 g/dL Normal 30.5-36.0 [facility] Comment on above: Order Comment: Speci men Type: BLOOD SPECIMEN Ordering Facility: [facility] Address: [address] [place] [address] Performed By: #### 5 7021-8 #### [facility] CLIA [id number] [address] [place] [address] LAB CLIA [id number] [address] [place] [address] [place] #### [id number] #### [facility] CLIA [id number] [address] [place] [address] [place] MCV (RBC) [Entitic vol] 92.4 fL Normal 80.0-100.0 [facility] Comment on above: Order Comment: Speci men Type: BLOOD SPECIMEN Ordering Facility: [facility] Address: [address] [place] [address] Performed By: #### 5 7021-8 #### [facility] CLIA [id number] [address] [place] [address] LAB CLIA [id number] [facility] [place] [address] [place] #### [id number] #### [facility] CLIA [id number] [address] [place] [address] [place] Monocytes (Bld) [#/Vol] 2.49 10*3/uL High <0.87 [facility] Comment on above: Order Comment: Speci men Type: BLOOD SPECIMEN Ordering Facility: [facility] Address: [address] [place] [address] Performed By: #### 5 7021-8 #### [facility] CLIA [id number] [address] [place] [address] LAB CLIA [id number] [address] [place] [address] [place] #### [id number] #### [facility] CLIA [id number] [address] [place] [address] [place] Monocytes/100 WBC (Bld) 10.2 % Normal [facility] Comment on above: Order Comment: Speci men Type: BLOOD SPECIMEN Ordering Facility: [facility] Address: [address] [place] [address] Performed By: #### 5 7021-8 #### [facility] CLIA [id number] [address] [place] [address] LAB CLIA [id number] [address] [place] [address] [place] #### [id number] #### [facility] CLIA [id number] [address] [place] [address] [place] Neutrophils (Bld) [#/Vol] 14.40 10*3/uL High 1.45-7.50 [facility] Comment on above: Order Comment: Speci men Type: BLOOD SPECIMEN Ordering Facility: [facility] Address: [address] [place] [address] Performed By: #### 5 7021-8 #### [facility] CLIA [id number] [address] [place] [address] LAB CLIA [id number] [address] [place] [address] [place] #### [id number] #### [facility] CLIA [id number] [address] [place] [address] [place] Neutrophils/100 WBC (Bld) 58.9 % Normal [facility] Comment on above: Order Comment: Speci men Type: BLOOD SPECIMEN Ordering Facility: [facility] Address: [address] [place] [address] Performed By: #### 5 7021-8 #### [facility] CLIA [id number] [address] [place] [address] LAB CLIA [id number] [address] [place] [address] [place] #### [id number] #### [facility] CLIA [id number] [address] [place] [address] [place] Platelet mean volume (Bld) [Entitic vol] 10.6 fL Normal 9.0-12.7 [facility] Comment on above: Order Comment: Speci men Type: BLOOD SPECIMEN Ordering Facility: [facility] Address: [address] [place] [address] Performed By: #### 5 7021-8 #### [facility] CLIA [id number] [address] [place] [address] LAB CLIA [id number] [address] [place] [address] [place] #### [id number] #### [facility] CLIA [id number] [address] [place] [address] [place] Platelets (Bld) [#/Vol] 222 10*3/uL Normal 150-400 [facility] Comment on above: Order Comment: Speci men Type: BLOOD SPECIMEN Ordering Facility: [facility] Address: [address] [place] [address] Performed By: #### 5 7021-8 #### [facility] CLIA [id number] [address] [place] [address] LAB CLIA [id number] [address] [place] [address] [place] #### [id number] #### [facility] CLIA [id number] [address] [place] [address] [place] RBC (Bld) [#/Vol] 3.93 10*6/uL Low 4.20-6.00 [facility] Comment on above: Order Comment: Speci men Type: BLOOD SPECIMEN Ordering Facility: [facility] Address: [address] [place] [address] Performed By: #### 5 7021-8 #### [facility] CLIA [id number] [address] [place] [address] LAB CLIA [id number] [address] [place] [address] [place] #### [id number] #### [facility] CLIA [id number] [address] [place] [address] [place] WBC (Bld) [#/Vol] 24.43 10*3/uL High 3.70-11.00 [facility] Comment on above: Order Comment: Speci men Type: BLOOD SPECIMEN Ordering Facility: [facility] Address: [address] [place] [address] Performed By: #### 5 7021-8 #### [facility] CLIA [id number] [address] [place] [address] LAB CLIA [id number] [address] [place], [place] [address] [place] #### [id number] #### [facility] CLIA [id number] [address] [place], [place] [address] [place] CNOVSPon 02-02-2023 CNOVSP Visit (SP) Office ([facility]) ----- RASHAD PHIPPS ([id number]) 1940 M Date Time Provider Department 02/02/23 3:30 PM POLI CAMPBELL During your visit today, we recorded the following information about you: Temperature Pulse Respiration Blood pressure 97.3 degrees 73/minute 18/minute 119/67 Weight Height 68.8 kg 1.803 m Poli Campbell MD 02/02/2023 4:25 PM Signed PATIENT NAME: Rashad Phipps CLINIC NO.: [id number] ATTENDING PHYSICIAN: Poli Campbell MD DATE OF [...] intact. Breast: (more content not included)... Normal [facility] Comprehensive metabolic 2000 panelon 02-02-2023 Albumin [Mass/Vol] 3.9 g/dL Normal 3.9-4.9 [facility] Comment on above: Order Comment: Speci men Type: BLOOD SPECIMEN Ordering Facility: [facility] Address: [address] [place] [id number] Performed By: #### 2 4323-8, #### [facility] CLIA [id number] [address] [place] [address] ALP [Catalytic activity/Vol] 107 U/L Normal 38-113 [facility] Comment on above: Order Comment: Speci men Type: BLOOD SPECIMEN Ordering Facility: [facility] Address: [address] [place] [address] Performed By: #### 2 4323-8, 0 #### [facility] CLIA [id number] [address] [place] [address] ALT [Catalytic activity/Vol] 8 U/L Low 10-54 [facility] Comment on above: Order Comment: Speci men Type: BLOOD SPECIMEN Ordering Facility: [facility] Address: [address] [place] [address] Performed By: #### 2 432-8, 2531-0 #### [facility] CLIA [id number] [address] [place] [address] Anion gap [Moles/Vol] 5 mmol/L Low 9-18 [facility] Comment on above: Order Comment: Speci men Type: BLOOD SPECIMEN Ordering Facility: [facility] Address: [address] [place] [address] Performed By: #### 2 4328, 2531-0 #### [facility] CLIA [id number] [address] [place] [address] AST [Catalytic activity/Vol] 14 U/L Normal 14-40 [facility] Comment on above: Order Comment: Speci men Type: BLOOD SPECIMEN Ordering Facility: [facility] Address: [address] [place] [address] Performed By: #### 2 4328, 2531-0 #### [facility] CLIA [id number] [address] [place] [address] Bilirubin [Mass/Vol] 0.5 mg/dL Normal 0.2-1.3 [facility] Comment on above: Order Comment: Speci men Type: BLOOD SPECIMEN Ordering Facility: [facility] Address: [address] [place] [address] Performed By: #### 2 4328, 2531-0 #### [facility] CLIA [id number] [address] [place] [address] Calcium [Mass/Vol] 9.0 mg/dL Normal 8.5-10.2 [facility] Comment on above: Order Comment: Speci men Type: BLOOD SPECIMEN Ordering Facility: [facility] Address: [address] [place] [address] Performed By: #### 2 4328, 2531-0 #### [facility] CLIA [id number] [address] [place] [address] Chloride [Moles/Vol] 97 mmol/L Normal 97-105 [facility] Comment on above: Order Comment: Speci men Type: BLOOD SPECIMEN Ordering Facility: [facility] Address: [address] [place] [address] Performed By: #### 2 4323-8, 2532-0 #### [facility] CLIA [id number] [address] [place] [address] CO2 [Moles/Vol] 28 mmol/L Normal 22-30 [facility] Comment on above: Order Comment: Speci men Type: BLOOD SPECIMEN Ordering Facility: [facility] Address: [address] [place] [address] Performed By: #### 2 4323-8, 2532-0 #### [facility] CLIA [id number] [address] [place] [address] Creatinine [Mass/Vol] 1.26 mg/dL High 0.73-1.22 [facility] Comment on above: Order Comment: Speci men Type: BLOOD SPECIMEN Ordering Facility: [facility] Address: [address] [place] [address] Performed By: #### 2 4323-8, 2532-0 #### [facility] CLIA [id number] [address] [place] [address] Creatinine and Glomerular filtration rate.predicted panel (S/P/Bld) 56 mL/min/1.73m??? Low >=60 [facility] Comment on above: Order Comment: Speci men Type: BLOOD SPECIMEN Ordering Facility: [facility] Address: [address] [place] [address] Result Comment: Doug mated Glomerular Filtration Rate [...] Performed By: #### 2 43238, 0 #### [facility] CLIA [id number] [address] [place] [address] Glucose [Mass/Vol] 99 mg/dL Normal 74-99 [facility] Comment on above: Order Comment: Speci men Type: BLOOD SPECIMEN Ordering Facility: [facility] Address: [address] [place] [address] Result Comment: The [employer] Diabetes Association (ADA) provides guidance for cutoff [...] Standards of Medical Care in Diabetes 2016, [employer] Association. Diabetes Care. 2016.39(Suppl 1). Performed By: #### 2 4328, 0 #### [facility] CLIA [id number] [address] [place] [address] Potassium [Moles/Vol] 4.1 mmol/L Normal 3.7-5.1 [facility] Comment on above: Order Comment: Speci men Type: BLOOD SPECIMEN Ordering Facility: [facility] Address: [address] [place] [address] Performed By: #### 2 43238, 0 #### [facility] CLIA [id number] [address] [place] [address] Protein [Mass/Vol] 6.4 g/dL Normal 6.3-8.0 [facility] Comment on above: Order Comment: Debrai men Type: BLOOD SPECIMEN Ordering Facility: [facility] Address: [address] [place] [address] Performed By: #### 2 4328, 2531-0 #### [facility] CLIA [id number] [address] [place] [address] Sodium [Moles/Vol] 130 mmol/L Low 136-144 [facility] Comment on above: Order Comment: Speci men Type: BLOOD SPECIMEN Ordering Facility: [facility] Address: [address] [place] [id number] Performed By: #### 2 4323-8, 2531-0 #### [facility] CLIA [id number] [address] [place], [place] [address] Urea nitrogen [Mass/Vol] 20 mg/dL Normal 9-24 [facility] Comment on above: Order Comment: Speci men Type: BLOOD SPECIMEN Ordering Facility: [facility] Address: [address] [place] [address] Performed By: #### 2 4323-8, 2531-0 #### [facility] CLIA [id number] [address] [place], [place] [address] Albumin [Mass/Vol] 3.9 g/dL 3.9 - 4.9 g/dL [facility] ALP [Catalytic activity/Vol] 107 U/L 38 - 113 U/L [facility] ALT [Catalytic activity/Vol] 8 U/L Low 10 - 54 U/L [facility] Anion gap [Moles/Vol] 5 mmol/L Low 9 - 18 mmol/L [facility] AST [Catalytic activity/Vol] 14 U/L 14 - 40 U/L [facility] Bilirubin [Mass/Vol] 0.5 mg/dL 0.2 - 1.3 mg/dL [facility] Calcium [Mass/Vol] 9.0 mg/dL 8.5 - 10. 2 mg/dL [facility] Chloride [Moles/Vol] 97 mmol/L 97 - 105 mmol/L [facility] CO2 [Moles/Vol] 28 mmol/L 22 - 30 mmol/L [facility] Creatinine [Mass/Vol] 1.26 mg/dL High 0.73 - 1.22 mg/dL [facility] Estimated Glomerular Filtration Rate 56 mL/min/1.73m Low >=60 mL/min/1.73m [facility] Glucose [Mass/Vol] 99 mg/dL 74 - 99 mg/dL [facility] Potassium [Moles/Vol] 4.1 mmol/L 3.7 - 5.1 mmol/L [facility] Protein [Mass/Vol] 6.4 g/dL 6.3 - 8.0 g/dL [facility] Sodium [Moles/Vol] 130 mmol/L Low 136 - 144 mmol/L [facility] Urea nitrogen [Mass/Vol] 20 mg/dL 9 - 24 mg/dL [facility] IMMUNOFIXATION SCREEN, SERUM on 02-02-2023 MPA RESULT No M protein is identified. Normal No M protein is identified. [facility] Comment on above: Order Comment: Speci men Type: BLOOD SPECIMEN Ordering Facility: [facility] Address: [address] [place] [address] Performed By: #### I FESC #### [facility] CLIA [id number] [address] [place] [address] [place] STAFF REVIEW (MPA) Reviewed by Betty Vallejo M.D. [facility] [facility] Comment on [facility]: Order Comment: Speci men Type: BLOOD SPECIMEN Ordering Facility: [facility] Address: [address] [place] [address] Performed By: #### I FES #### [facility] CLIA [id number] [facility] [place] [address] [place] IMMUNOGLOBULINS GAMon 2022 IgA [Mass/Vol] 117 mg/dL Normal 70-400 [facility] Comment on above: Order Comment: Speci men Type: BLOOD SPECIMEN Ordering Facility: [facility] Address: [address] [place] [address] Performed By: #### S ERIMM #### [facility] CLIA [id number] [facility] [place] [address] [place] IgG [Mass/Vol] 823 mg/dL Normal 700-1600 [facility] Comment on above: Order Comment: Speci men Type: BLOOD SPECIMEN Ordering Facility: [facility] Address: [address] [place] [address] Performed By: #### S ERIMM #### [facility] CLIA [id number] [facility] [place] [address] [place] IgM [Mass/Vol] 22 mg/dL Low 40-230 [facility] Comment on above: Order Comment: Speci men Type: BLOOD SPECIMEN Ordering Facility: [facility] Address: [address] [place] [address] Performed By: #### S ERIMM #### [facility] CLIA [id number] [facility] [place] [address] [place] KAPPA/GUILLEN,FREE,SERon 2022 Immunoglobulin light chains.kappa.free (S) [Mass/Vol] 24.9 mg/L High 3.3-19.4 [facility] Comment on above: Order Comment: Speci men Type: BLOOD SPECIMEN Ordering Facility: [facility] Address: [address] [place] [address] Result Comment: Rare ly, increased serum free light chains levels may not be detected or accurately quantified due to prozone phenomenon or in high viscosity samples using this immunoturbidimetric assay. Correlation with other laboratory results and clinical findings is recommended. The [place] Free Light Chain was performed using the Binding Site Optilite immunoturbidimetric method. Result obtained with different assay methods or kits cannot be used interchangeably. Performed By: #### K LFRS #### [facility] CLIA [id number] [address] [place] [address] [place] Immunoglobulin light chains.kappa/Immun oglobulin light chains.lambda (S) [Mass ratio] 1.78 High 0.26-1.65 [facility] Comment on above: Order Comment: Speci men Type: BLOOD SPECIMEN Ordering Facility: [facility] Address: [address] [place] [address] Performed By: #### K LFRS #### [facility] CLIA [id number] [address] [place] [address] [place] Immunoglobulin light chains.lambda.free [Mass/Vol] 14.0 mg/L Normal 5.7-26.3 [facility] Comment on above: Order Comment: Speci men Type: BLOOD SPECIMEN Ordering Facility: [facility] Address: [place] [address] Result Comment: Rare ly, increased serum free [...] interchangeably. Performed By: #### K LFRS #### [facility] CLIA [id number] [address] [place] [address] [place] LD LACTATE DEHYDROon 023 LDH [Catalytic activity/Vol] 124 U/L Low 135 - 225 U/L [facility] LDH SerPl-cCncon 02-02-2023 LDH [Catalytic activity/Vol] 124 U/L Low 135-225 [facility] Comment on above: Order Comment: Speci men Type: BLOOD SPECIMEN Ordering Facility: [facility] Address: [place] [address] Performed By: #### 2 4323-8, 2532-0 #### [facility] CLIA [id number] [address] [place] [address] PROTEIN ELECTROPHORESIS SERU M (P)on 02-02-2023 Albumin [Mass/Vol] 3.32 g/dL Low 3.43-5.41 [facility] Comment on above: Order Comment: Speci men Type: BLOOD SPECIMEN Ordering Facility: [facility] Address: [address] [place] [address] Performed By: #### L [id number] #### [facility] CLIA [id number] [address] [place] [address] [place] Alpha 1 globulin Elph [Mass/Vol] 0.46 g/dL High 0.18-0.43 [facility] Comment on above: Order Comment: Speci men Type: BLOOD SPECIMEN Ordering Facility: [facility] Address: [address] [place] [address] Performed By: #### L [id number] #### [facility] CLIA [id number] [address] [place] [address] [place] Alpha 2 globulin Elph [Mass/Vol] 0.72 g/dL Normal 0.42-0.98 [facility] Comment on above: Order Comment: Speci men Type: BLOOD SPECIMEN Ordering Facility: [facility] Address: [address] [place] [address] Performed By: #### L [id number] #### [facility] CLIA [id number] [address] [place] [address] [place] Beta globulin Elph [Mass/Vol] 0.62 g/dL Normal 0.61-1.17 [facility] Comment on above: Order Comment: Speci men Type: BLOOD SPECIMEN Ordering Facility: [facility] Address: [address] [place] [address] Performed By: #### L [id number] #### [facility] CLIA [id number] [address] [place] [address] [place] Gamma globulin Elph [Mass/Vol] 0.68 g/dL Normal 0.53-1.51 [facility] Comment on above: Order Comment: Speci men Type: BLOOD SPECIMEN Ordering Facility: [facility] Address: [address] [place] [address] Performed By: #### L [id number] #### [facility] CLIA [id number] [address] [place] [address] [place] M-PROTEIN LOCATION Normal [facility] Comment on above: Order Comment: Speci men Type: BLOOD SPECIMEN Ordering Facility: [facility] Address: [address] [place] [address] Result Comment: Not Applicable. Performed By: #### L [id number] #### [facility] CLIA [id number] [address] [place] [address] [place] Protein Fractions [Interp] No definitive M protein is identified on protein electrophoresis. Normal No definitive M protein is identified on protein electrophore sis. [facility] Comment on above: Order Comment: Speci men Type: BLOOD SPECIMEN Ordering Facility: [facility] Address: [address] [place] [address] Performed By: #### L [id number] #### [facility] CLIA [id number] [address] [place] [address] [place] Protein.monoclonal Elph [Mass/Vol] 0.00 g/dL Normal <=0.00 [facility] Comment on above: Order Comment: Speci men Type: BLOOD SPECIMEN Ordering Facility: [facility] Address: [address] [place] [address] Performed By: #### L [id number] #### [facility] CLIA [id number] [address] [place] [address] [place] SPE STAFF REVIEW Reviewed by Betty Vallejo M.D. Normal [facility] Comment on above: Order Comment: Speci men Type: BLOOD SPECIMEN Ordering Facility: [facility] Address: [address] [place] [address] Performed By: #### L [id number] #### [facility] CLIA [id number] [address] [place] [address] [place] Prot SerPl-mCncon 02-02-2023 Protein [Mass/Vol] 5.8 g/dL Low 6.3-8.0 [facility] Comment on above: Order Comment: Speci men Type: BLOOD SPECIMEN Ordering Facility: [facility] Address: [address] [place] [address] Performed By: #### 2 885-2 #### [facility] CLIA [id number] [address] [place] [address] [place] RBC MORPHOLOGYon 02-02-2023 Platelets Estimate (Bld) [#/Vol] Adequate Normal [facility] Comment on above: Order Comment: Speci jadiel Type: BLOOD SPECIMENOrdering Facility: [facility] Address: [address] [place] [address] Performed By: #### 5 7021-8 ####[facility] [id number] [address] LABCLIA [id number] [place] [address] [place]#### [id number] ####[facility] [id number] [place] [address] [place] RBC morphology finding Nom (Bld) Reviewed: unremarkable Normal [facility] Comment on above: Order Comment: Kevin duvall Type: BLOOD SPECIMENOrdering Facility: [facility] Address: [address] [place] [address] Performed By: #### 5 7021-8 ####[facility]CLIA [id number] [address] LABCLIA [id number] [place] [address] [place]#### [id number] ####[facility] [id number] [address] [place] Office Visiton 11-12-2022 Follow-up visit Diagnoses/Problems 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) Asthma, unspecified asthma severity, unspecified whether complicated, unspecified whether persistent (493.90) (J45.909) Chronic sinusitis (473.9) (J32.9) Bronchiectasis (494.0) (J47.9) CKD (chronic kidney disease) (585.9) (N18.9) Orders Asthma, unspecified asthma severity, unspecified whether complicated, unspecified whether persistent Asthma Control Flowsheet; Status:Complete; Done: [id number] Bronchiectasis, CVID (common variable immunodeficiency) Immunoglobulin G Level, Serum; Status:Active; Requested for:[id number]; Chronic sinusitis Start: Nasacort Allergy 24HR 55 MCG/ACT Nasal Aerosol; INSTILL 2 SPRAY Daily CKD (chronic kidney disease) Comprehensive Metabolic Panel; Status:Active; Requested for:[id number]; Patient Discussion/Summary Continue Hizentra infusions. Have IgG [...] sure to look down while using it. [place] slightly away from the direction of your [...] followup scheduled He continues Xarelto 20 per clay miller but questions if this raises a bleeding [...] Problems Asthma (more content not included)... Normal [facility] Office Visiton 08-06-2022 Follow-up visit Diagnoses/Problems Asthma, [...] start fluticasone. He continues Hizentra infusions from [facility], which are going well with [...] (V15.82) (Z87.891) (more content not included)... Normal [facility] ACID FAST SMEAR AND CXon Acid Fast Culture Negative Normal [facility] Comment on above: Result Comment: No a marshall fast bacilli isolated after 6 weeks. Performed By: #### A FB #### [facility] [address] [place] [address] [address] Nadeen Broderick Acid Fast Smear Negative Normal [facility] Comment on above: Performed By: #### A FB #### [facility] [address] [place] [address] [address] Nadeen Broderick [employer] Specimen Processing Concentration Normal [facility] Comment on above: Performed By: #### A FB #### [facility] [address] [place] [address] [address] 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 Jacobson (in [facility]) I requested repeat CBC for 06/21/2022 but will defer if other overlapping blood tests or testing requested by PCP 1 1 Amended By: Rodriguez Quiroz; Jun 10 2022 11:29 AM ESTSignatures Electronically signed by : Rodriguez Quiroz MD; Jun 10 2022 11:31AM EST (Author) Normal [facility] FUNGAL CULTUREon 06-02-2022 Fungus (Mycology) Culture Final report Normal [facility] Comment on above: Performed By: #### C XFUN #### [facility] [address] [place] [address] [address] Nadeen Broderick Fungus Stain Final report Normal [facility] Comment on above: Performed By: #### C XFUN #### [facility] [address] [place] [address] [address] Nadeen Broderick Result 1 Comment Normal [facility] Comment on above: Result Comment: LAILA/ Calcofluor preparation: no fungus observed. Performed By: #### C XFUN #### [facility] [address] [place] [address] [address] Nadeen Broderick Result Comment: No y east or mold isolated after 4 weeks. RESPIRATORY CF CULTURE,BACTE RIAL.on 05-21-2022 RESPIRATORY CF CULTURE,BACTERIAL. PATIENT: RASHAD PHIPPS LOCATION: [address] BILL#: [id number] : 36 AGE: SEX: M ORDERED BY: [...] DEPENDENT NS=NONSUSCEPTIBLE X=REPORTED IN ERROR ___ Normal [facility] Comment on above: Performed By: #### R [facility] #### [facility] [address] [place] [address] Chart Updateon 05-19-2022 Chart Update Chart Update [...] on 05/21/2022. Requisition sent to laboratory at [facility]. Patient will collect sputum today prior to starting levofloxacin 2. Levofloxacin 500 mg daily x10 days. Prescription sent electronically 3. Repeat CBC plus differential and basic metabolic panel on 05/31/2022. Order placed in computer. Requisition faxed to [facility] at [facility] in [facility] LAB phone [phone]) LAB FAX for [facility] ([phone]) LAB number [id number] 4. Phone follow-up in 1 week or earlier if necessary 5. 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 We will discuss results afterwards. We [...] Will send note to Dr. Jacobson at [facility] in [place], [place] FAX [phone] Signatures Electronically signed by : Rodriguez Quiroz MD; May 18 2022 12:35PM EST (Author) Normal [facility] Chart Updateon 05-10-2022 Chart Update Chart Update [...] 05/03/2022 as part of evaluation with new last model department supervisor. Patient reports new evaluation regarding possible new lesion/? Mass/? Infiltrate in the right lower lobe. Patient underwent bronchoscopy. No procedural or culture details known. Patient had no additional news and has follow-up with pulmonology in [facility] on 05/11/2022. NEW last model department supervisor, Dr. Rabia Jacobson Post-bronchoscopy leukocytosis I asked the patient to relay WBC count to Dr. Jacobson Would recommend repeat CBC plus differential in 1 week on 05/17/2022. Pulmonary could order at local hospital for patient convenience (patient goes to [facility] in [facility]) Patient will call and let me know if we need to order and send fax to [facility] if pulmonary unable to do so I faxed a copy of white blood cell count report to pulmonary at [phone] (Dr. Jacobson) Signatures Electronically signed by : Rodriguez Quiroz MD; May 10 2022 2:37PM EST (Author) Normal [facility] CBC AND DIFFERENTIALon 05-07 % AUTOMATED IMMATURE GRAN 1.8 % High 0.0 - 0.9 [facility] Comment on above: Result Comment: Acacia ture Granulocyte Count (IG) includes promyelocytes, myelocytes and metamyelocytes but does not include bands. Percent differential counts (%) should be interpreted in the context of the absolute cell counts (cells/L). Performed By: #### C BCDF #### [address] [id number] DIFFERENTIAL SEE MANUAL DIFF Normal [facility] [place] Comment on above: Performed By: #### C BCDF #### [address] [id number] Erythrocyte distribution width (RBC) [Ratio] 14.6 % High 11.5 - 14.5 [facility] Comment on above: Performed By: #### C BCDF #### [address] [id number] Hematocrit (Bld) [Volume fraction] 34.7 % Low 41.0 - 52.0 [facility] Comment on above: Performed By: #### C BCDF #### [address] [id number] Hemoglobin (Bld) [Mass/Vol] 11.0 g/dL Low 13.5 - 17.5 [facility] Comment on above: Performed By: #### C BCDF #### [address] [id number] MCHC (RBC) [Mass/Vol] 31.7 g/dL Low 32.0 - 36.0 [facility] Comment on above: Performed By: #### C BCDF #### [address] [id number] MCV (RBC) [Entitic vol] 92 fL Normal 80 - 100 [facility] Comment on above: Performed By: #### C BCDF #### [address] [id number] Platelets (Bld) [#/Vol] 376 10*3/uL Normal 150 - 450 [facility] Comment on above: Performed By: #### C BCDF #### [address] [id number] RBC 3.77 x10E12/L Low 4.50 - 5.90 [facility] Comment on above: Performed By: #### C BCDF #### [address] [id number] WBC (Bld) [#/Vol] 34.0 10*3/uL High 4.4 - 11.3 [facility] Comment on above: Performed By: #### C BCDF #### [address] [id number] COMPREHENSIVE PANELon 2022 Albumin [Mass/Vol] 3.6 g/dL Normal 3.4 - 5.0 [facility] Comment on above: Performed By: #### C MP #### [address] [id number] ALP [Catalytic activity/Vol] 94 U/L Normal 33 - 136 [facility] Comment on above: Performed By: #### C MP #### [address] [id number] ALT [Catalytic activity/Vol] 12 U/L Normal 10 - 52 [facility] Comment on above: Result Comment: Cathy ents treated with Sulfasalazine may generate falsely decreased results for ALT. Performed By: #### C MP #### [address] [id number] Anion gap [Moles/Vol] 12 mmol/L Normal 10 - 20 [facility] Comment on above: Performed By: #### C MP #### [address] [id number] AST [Catalytic activity/Vol] 14 U/L Normal 9 - 39 [facility] Comment on above: Performed By: #### C MP #### [address] [id number] Bilirubin [Mass/Vol] 0.6 mg/dL Normal 0.0 - 1.2 [facility] Comment on above: Performed By: #### C MP #### [address] [id number] Calcium [Mass/Vol] 8.8 mg/dL Normal 8.6 - 10.3 [facility] Comment on above: Performed By: #### C MP #### [address] [id number] Chloride [Moles/Vol] 95 mmol/L Low 98 - 107 [facility] Comment on above: Performed By: #### C MP #### [address] [id number] Creatinine [Mass/Vol] 1.33 mg/dL High 0.50 - 1.30 [facility] Comment on above: Performed By: #### C MP #### [address] [id number] GFR/1.73 sq M.predicted among non-blacks MDRD (S/P/Bld) [Vol rate/Area] 53 mL/min/{1.73_m2} Abnormal >90 [facility] Comment on above: Result Comment: CALC ULATIONS OF ESTIMATED GFR ARE PERFORMED USING THE 2020 CKD-EPI STUDY REFIT EQUATION WITHOUT THE RACE VARIABLE FOR THE IDMS-TRACEABLE CREATININE METHODS. https://jasn.asnjournals.org/content//ASN.908221648 8 Performed By: #### C MP #### [address] [id number] Glucose [Mass/Vol] 72 mg/dL Low 74 - 99 [facility] Comment on above: Performed By: #### C MP #### [address] [id number] HCO3 (Bld) [Moles/Vol] 28 mmol/L Normal 21 - 32 [facility] Comment on above: Performed By: #### C MP #### [address] [id number] Potassium [Moles/Vol] 3.9 mmol/L Normal 3.5 - 5.3 [facility] Comment on above: Performed By: #### C MP #### [address] [id number] Protein [Mass/Vol] 6.1 g/dL Low 6.4 - 8.2 [facility] Comment on above: Performed By: #### C MP #### [address] [id number] Sodium [Moles/Vol] 131 mmol/L Low 136 - 145 [facility] Comment on above: Performed By: #### C MP #### [address] [id number] Urea nitrogen [Mass/Vol] 22 mg/dL Normal 6 - 23 [facility] Comment on above: Performed By: #### C MP #### [address] [id number] Complete Blood Count + Diffe rentialon 05-07-2022 [...] [Mass/Vol] 778 mg/dL Normal 700 - 1600 [facility] Comment on above: Result Comment: MONO CLONAL PROTEINS MAY CAUSE FALSELY LOW RESULTS IN THIS ASSAY. SERUM PROTEIN ELECTROPHORESIS SHOULD BE DONE THE FIRST TEST TO EVALUATE MONOCLONAL GAMMOPATHY. Performed By: #### I GG #### [facility] [address] [place] [address] Immunoglobulin G Level, Seru mon 05-07-2022 IgG [...] BASOPHIL 0.0 % Normal 0.0 - 2.0 [facility] Comment on above: Performed By: #### M DIFF #### [address] [id number] % EOSINOPHIL 0.0 % Normal 0.0 - 6.0 [facility] Comment on above: Performed By: #### M DIFF #### [address] [id number] % LYMPHOCYTE 16.0 % Normal 13.0 - 44.0 [facility] Comment on above: Performed By: #### M DIFF #### [address] [id number] % MONOCYTE 9.0 % Normal 2.0 - 10.0 [facility] Comment on above: Performed By: #### M DIFF #### [address] [id number] % SEG NEUTROPHIL 75.0 % Normal 40.0 - 80.0 [facility] [place] Comment on above: Result Comment: Perc ent differential counts (%) should be interpreted in the context of the absolute cell counts (cells/L). Performed By: #### M DIFF #### [address] [id number] ANC 25.50 x10E9/L High 1.60 - 5.50 [facility] Comment on above: Performed By: #### M DIFF #### [address] [id number] BASOPHIL 0.00 x10E9/L Normal 0.00 - 0.10 [facility] Comment on above: Performed By: #### M DIFF #### [address] [id number] EOSINOPHIL 0.00 x10E9/L Normal 0.00 - 0.40 [facility] Comment on above: Performed By: #### M DIFF #### [address] [id number] LYMPHOCYTE 5.44 x10E9/L High 0.80 - 3.00 [facility] Comment on above: Performed By: #### M DIFF #### [address] [id number] MONOCYTE 3.06 x10E9/L High 0.05 - 0.80 [facility] Comment on above: Performed By: #### M DIFF #### [address] [id number] SEG NEUTROPHIL 25.50 x10E9/L High 1.60 - 5.00 [facility] Comment on above: Performed By: #### M DIFF #### [address] [id number] No Panel Informationon 05-07 25.50 {x10E9/L} above [...] RACE VARIABLE FOR THE IDMS-TRACEABLE CREATININE METHODS.https://jasn.asnjournals.org/content//ASN.2 568677098 Office Visiton 05-07-2022 Follow-up visit Diagnoses/Problems Bronchiectasis [...] to think mucus but will check with Test Designer first. I will review CT chest once [...] thin his mucus but will check with Test Designer first. Record release from last model department supervisor, Rabia Jacobson DO, [facility]. I will review CT chest once [...] A had persistent Sx and saw a last model department supervisor at [facility], Dr. Rabia Jacobson, who performed bronchoscopy [...] colonization (V02.59) (Z22.39) Reaction, drug, adverse (E947.9) (T50.761T) Past Medical History History of arthritis (V13.4) (Z87.39) History of cataract (V12.49) (Z86.69) History of esophageal reflux (V12.79) (Z87.19) History of malignant neoplasm (V10.90) (Z85.9) History of (more content not included)... Normal [facility] RED CELL MORPHOLOGYon 2022 ACANTHOCYTES Few Normal [facility] Comment on above: Performed By: #### M ORP2 #### [address] [id number] YULY CELLS Few Normal [facility] Comment on above: Performed By: #### M ORP2 #### [address] [id number] OVALOCYTES Few Normal [facility] Comment on above: Performed By: #### M ORP2 #### [address] [id number] RBC morphology finding Nom (Bld) See Below Normal [facility] Comment on above: Performed By: #### M ORP2 #### [address] [id number] TOBRAMYCINon 05-07-2022 TOBRAMYCIN 0.6 ug/mL Normal [facility] Comment on above: Result Comment: . Th erapeutic Ranges: Peak: 4.0-10.0 ug/mL . Trough: 0.0- 2.0 ug/mL Performed By: #### T OBRU #### [facility] [address] [place] [address] Tobramycin Level, Randomon 0 05-07-2022 Tobramycin [Mass/Vol] 0.6 ug/mL [facility]-Infectious Disease-Spec Immun Unit Work Phone: Comment on above: . Therapeutic Ranges : Peak: 4.0-10.0 ug/mL. Trough: 0.0- 2.0 ug/mL CULTURE OTHERon 05-03-2022 CULTURE OTHER Culture Observations : Susceptibility testing performed by [facility]. See report scanned in One [employer]. Isolate 1 Pseudomonas aeruginosa Light growth of Normal [facility] Comment on above: Performed By: #### O THCX #### [facility] [address] [address] [address] Nadeen Broderick CYTOLOGYon 05-03-2022 SENT TO REF LAB 05/03/2022 Normal [facility] Comment on above: Performed By: #### C YTO #### [facility] [address] [address] [address] Nadeen IBARRA STAINon 05-03-2022 COMMENTS NO ORGANISMS OBSERVED Normal [facility] Comment on above: Performed By: #### G STAIN #### [facility] [address] [place] [address] Dr. Nadeen Broderick DIPHTHEROIDS [facility] Comment on above: Performed By: #### G STAIN #### [facility] [address] [address] [address] Nadeen Broderick EPITHELIALS RARE Normal [facility] Comment on above: Performed By: #### G STAIN #### [facility] [address] [address] [address] Nadeen Broderick FUNGAL ELEMENTS [facility] Comment on above: Performed By: #### G STAIN #### [facility] [address] [place] [address] Dr. Nadeen IBARRA NEG BACILLI Normal [facility] Comment on above: Performed By: #### G STAIN #### [facility] [address] [place] [address] Dr. Nadeen IBARRA NEG DIPPLOCOCCI Normal [facility] Comment on above: Performed By: #### G STAIN #### [facility] [address] [place] [address] Dr. Nadeen IBARRA POS BACILLI [facility] Comment on above: Performed By: #### G STAIN #### [facility] [address] [place] [address] Dr. Nadeen Broderick GRAM POSITIVE COCCI Normal [facility] Comment on above: Performed By: #### G STAIN #### [facility] [address] [place] [address] Dr. Nadeen Broderick GRAM STAIN SOURCE R. LOWER LOBE LAVAGE Normal [facility] Comment on above: Performed By: #### G STAIN #### [facility] [address] [place] [address] Dr. Nadeen Broderick GS_DIPTH Normal [facility] Comment on above: Performed By: #### G STAIN #### [facility] [address] [place] [address] Dr. Nadeen Broderick WBC MODERATE Normal [facility] Comment on above: Performed By: #### G STAIN #### [facility] [address] [place] [address] Dr. Nadeen Broderick CBC W MANUAL DIFFon 04-30-19 23 ATYPICAL LYMPH # 1.30 103/ul Normal [facility] Comment on above: Performed By: #### C BCMAN #### [facility] [address] [place] [address] Dr. Nadeen Broderick ATYPICAL LYMPH % 5 % Normal [facility] Comment on above: Performed By: #### C BCMAN #### [facility] [address] [place] [address] Dr. Nadeen Broderick BAND # 0.0 103/ul Normal 0.0-0.3 [facility] Comment on above: Performed By: #### C CAMILLE #### [facility] [address] [place] [address] Dr. Nadeen Broderick BAND % 0 % Normal 0-5 [facility] Comment on above: Performed By: #### C BCMAN #### [facility] [address] [place] [address] Dr. Nadeen Broderick BASOM # 0.00 103/ul Normal 0.00-0.10 [facility] Comment on above: Performed By: #### C BCMAN #### [facility] [address] [place] [address] Dr. Nadeen Broderick BASOM % 0.0 % Critically low 0.2-2.0 [facility] Comment on above: Performed By: #### C BCMAN #### [facility] [address] [address] [address] Nadeen Broderick BLAST # Normal [facility] Comment on above: Performed By: #### C BCMAN #### [facility] [address] [place] [address] Dr. Nadeen Broderick BLAST % Normal [facility] Comment on above: Performed By: #### C BCMAN #### [facility] [address] [address] [address] Nadeen Broderick CORRECTED WBC Normal 4.0-11.0 [facility] Comment on above: Performed By: #### C BCMAN #### [facility] [address] [place] [address] Dr. Nadeen Broderick EOS # 0.26 103/ul Normal 0.00-0.70 [facility] Comment on above: Performed By: #### C BCMAN #### [facility] [address] [place] [address] Dr. Nadeen Broderick EOS% 1.0 % Normal 0.9-7.0 [facility] Comment on above: Performed By: #### C BCPIERRE #### [facility] [address] [place] [address] Dr. Nadeen Broderick HCT 28.5 % Critically low 42.0-54.0 [facility] Comment on above: Performed By: #### C BCMAN #### [facility] [address] [place] [address] Dr. Nadeen Broderick HGB 10.3 g/dl Critically low 14.0-18.0 [facility] Comment on above: Performed By: #### C BCMAN #### [facility] [address] [place] [address] Dr. Nadeen Broderick LYMPHM # 4.96 103/ul Critically high 1.20-3.80 [facility] Comment on above: Performed By: #### C BCMAN #### [facility] [address] [place] [address] Dr. Nadeen Broderick LYMPHM% 19.0 % Critically low 20.5-60.0 [facility] Comment on above: Performed By: #### C CAMILLE #### [facility] [address] [address] [address] Nadeen Broderick MCH 29.4 pg Normal 25.9-34.0 [facility] Comment on above: Performed By: #### C CAMILLE #### [facility] [address] [place] [address] Dr. Nadeen Broderick MCHC 36.1 g/dl Critically high 29.9-35.2 [facility] Comment on above: Performed By: #### C CAMILLE #### [facility] [address] [place] [address] Dr. Nadeen Broderick MCV 81.4 fL Normal 80.0-94.0 [facility] Comment on above: Performed By: #### C CAMILLE #### [facility] [address] [place] [address] Dr. Nadeen Broderick METAMYELOCYTE # Normal [facility] Comment on above: Performed By: #### C CAMILLE #### [facility] [address] [place] [address] Dr. Nadeen Broderick METAMYELOCYTE % Normal [facility] Comment on above: Performed By: #### C CAMILLE #### [facility] [address] [place] [address] Dr. Nadeen Broderick MONOM# 2.61 103/ul Critically high 0.30-0.80 [facility] Comment on above: Performed By: #### C CAMILLE #### [facility] [address] [place] [address] Dr. Nadeen Broderick MONOM% 10.0 % Normal 1.7-12.0 [facility] Comment on above: Performed By: #### C CAMILLE #### [facility] [address] [place] [address] Dr. Nadeen Broderick MPV 9.1 fL Critically low 9.5-13.5 [facility] Comment on above: Performed By: #### C CAMILLE #### [facility] [address] [place] [address] Dr. Nadeen Broderick MYELOCYTE # Normal [facility] Comment on above: Performed By: #### C CAMILLE #### [facility] [address] [address] [address] Nadeen Broderick MYELOCYTE % Normal [facility] Comment on above: Performed By: #### C CAMILLE #### [facility] [address] [address] [address] Nadeen Broderick NRBC Normal [facility] Comment on above: Performed By: #### C CAMILLE #### [facility] [address] [address] [address] Nadeen Broderick PLT 320 103/ul Normal 150-450 [facility] Comment on above: Performed By: #### C CAMILLE #### [facility] [address] [address] [address] Nadeen Broderick RBC 3.50 106/ul Critically low 4.70-6.10 [facility] Comment on above: Performed By: #### C CAMILLE #### [facility] [address] [address] [address] Nadeen Broderick RDW 13.3 % Normal 11.0-15.0 [facility] Comment on above: Performed By: #### C CAMILLE #### [facility] [address] [place] [address] Dr. Nadeen Broderick SEG # 16.96 103/ul Critically high 1.40-6.50 [facility] Comment on above: Performed By: #### C CAMILLE #### [facility] [address] [place] [address] Dr. Nadeen Broderick SEG % 65.0 % Normal 43.0-75.0 [facility] Comment on above: Performed By: #### C CAMILLE #### [facility] [address] [place] [address] Dr. Nadeen Broderick WBC 26.1 103/ul Critically high 4.0-11.0 [facility] Comment on above: Performed By: #### C CAMILLE #### [facility] [address] [place] [address] Dr. Nadeen Broderick [facility]12 SARS-CoV-2 (COVID-19) RNA PERLITA+probe Ql (Unsp spec) Not detected Normal NOT DETECTED [facility] Comment on above: Result Comment: This test is not yet approved or cleared by the [place] FDA. When there are no FDA-approved or cleared tests available, and other criteria are met, FDA can make tests available under an emergency access mechanism called an Emergency Use Authorization (EUA). The EUA for this test is supported by the [employer] Agent of Health and Human Service's (HHS's) declaration [...] SARS-CoV-2. Performed By: #### C VDTBH #### [facility] [address] [place] [address] Dr. Nadeen Broderick PROF CHEM 8 (BAS METB)on Anion gap [Moles/Vol] 12.4 mmol/L Normal [facility] Comment on above: Performed By: #### B MP #### [facility] [address] [place] [address] Dr. Nadeen Broderick Calcium [Mass/Vol] 9.0 mg/dL Normal 8.5-10.1 [facility] Comment on above: Performed By: #### B MP #### [facility] [address] [address] [address] Nadeen Broderick Chloride [Moles/Vol] 97 mmol/L Critically low 98-107 [facility] Comment on above: Performed By: #### B MP #### [facility] [address] [address] [address] Nadeen Broderick CO2 [Moles/Vol] 27.1 mmol/L Normal 21.0-32.0 [facility] Comment on above: Performed By: #### B MP #### [facility] [address] [address] [address] Nadeen Broderick Creatinine [Mass/Vol] 1.54 mg/dL Critically high 0.70-1.30 [facility] Comment on above: Performed By: #### B MP #### [facility] [address] [address] [address] Nadeen Broderick EGFR-AF GREENLANDIC 53 mL/min/1.73m2 Critically low >=60 [facility] Comment on above: Performed By: #### B MP #### [facility] [address] [address] [address] Nadeen Broderick EGFR-NON AF GREENLANDIC 43 mL/min/1.73m2 Critically low >=60 [facility] Comment on above: Performed By: #### B MP #### [facility] [address] [address] [address] Nadeen Broderick Glucose [Mass/Vol] 106 mg/dL Normal 74-106 [facility] Comment on above: Performed By: #### B MP #### [facility] [address] [address] [address] Nadeen Broderick Potassium [Moles/Vol] 3.5 mmol/L Normal 3.5-5.1 [facility] Comment on above: Performed By: #### B MP #### [facility] [address] [address] [address] Nadeen Broderick Sodium [Moles/Vol] 133 mmol/L Critically low 136-145 [facility] Comment on above: Performed By: #### B MP #### [facility] [address] [address] [address] Nadeen Broderick Urea nitrogen [Mass/Vol] 26.0 mg/dL Critically high 7.0-18.0 [facility] Comment on above: Performed By: #### B MP #### [facility] [address] [address] [address] Nadeen Broderick Urea nitrogen/Creatinin e [Mass ratio] 16.9 mg/mg Normal [facility] Comment on above: Performed By: #### B MP #### [facility] [address] [place] [address] Dr. Nadeen Broderick PROTIMEon 04-30-2022 INR Coag (PPP) [Relative time] 1.29 {INR} Normal [facility] Comment on above: Performed By: #### P TT, PT #### [facility] [address] [place] [address] Dr. Nadeen Broderick INR GUIDELINES SEE BELOW Normal [facility] Comment on above: Result Comment: DAVID RED INR: 2.0 - 3.0 CONDITIONS NOT LISTED BELOW 2.5 - 3.5 FOR PROSTHETIC HEART VALVE REPLACEMENT 2.5 - 3.5 RECURRENT THROMBOSIS Performed By: #### P TT, PT #### [facility] [address] [place] [address] Dr. Nadeen Broderick PT Coag (PPP) [Time] 13.5 s Critically high 9.0-11.6 [facility] Comment on above: Performed By: #### P TT, PT #### [facility] [address] [place] [address] Dr. Nadeen Broderick PTTon 04-30-2022 aPTT Coag (Bld) [Time] 53.6 s Critically high 22.3-36.2 [facility] Comment on above: Performed By: #### P TT, PT #### [facility] [address] [place] [address] Dr. Nadeen Broderick ID - Follow Upon [...] colonization (V02.59) (Z22.39) Reaction, drug, adverse (E947.9) (T50.079T) Past Medical History History of arthritis (V13.4) [...] THEN 14 DAYS OFF - REFILLS CALL: [phone]; Therapy: [id number] to (Last Rx:09Jul2021) Requested for: [...] Last Upda (more content not included)... Normal [facility] METABOLIC PANE [facility] 10-01-2021 Albumin [Mass/Vol] 4.0 g/dL Normal 3.6-5.1 [facility] Comment on above: Performed By: #### 5 8984, 7600, 12503 #### [facility] [address] [address] Apn: Ozzie Callejas MD Albumin/Globulin [Mass ratio] 1.8 {ratio} Normal 1.0-2.5 [facility] Comment on above: Performed By: #### 5 8984, 7600, 86538 #### [facility] [address] [address] Apn: Ozzie Callejas MD ALP [Catalytic activity/Vol] 94 U/L Normal 35-144 [facility] Comment on above: Performed By: #### 5 8984, 7600, 90562 #### [facility] [address] [address] Apn: Ozzie Callejas MD ALT [Catalytic activity/Vol] 10 U/L Normal 9-46 [facility] Comment on above: Performed By: #### 5 89, 7600, 00863 #### [facility] [address] [address] Apn: Ozzie Callejas MD AST [Catalytic activity/Vol] 16 U/L Normal 10-35 [facility] Comment on above: Performed By: #### 5 8984, 7600, 48031 #### [facility] [address] [address] [address] [place] [address] Apn: Ozzie Callejas MD Bilirubin [Mass/Vol] 0.5 mg/dL Normal 0.2-1.2 [facility] Comment on above: Performed By: #### 5 8984, 7600, 14188 #### [facility] [address], [address] [place] [address] Apn: Ozzie Callejas MD Calcium [Mass/Vol] 9.1 mg/dL Normal 8.6-10.3 [facility] Comment on above: Performed By: #### 5 8984, 7600, 72206 #### [facility] [address], [address] [place] [address] Apn: Ozzie Callejas MD Chloride [Moles/Vol] 101 mmol/L Normal 98-110 [facility] Comment on above: Performed By: #### 5 89, 7600, 20893 #### [facility] [address], [address] [place] [address] Apn: Ozzie Callejas MD CO2 [Moles/Vol] 26 mmol/L Normal 20-32 [facility] Comment on above: Performed By: #### 5 89, 7600, 25526 #### [facility] [address] [address] Apn: Ozzie Callejas MD Creatinine [Mass/Vol] 1.55 mg/dL High 0.70-1.11 [facility] Comment on above: Result Comment: For patients >49 years of age, the reference limit for Creatinine is approximately 13% higher for people identified as -Indian. Performed By: #### 5 89, 7600, 72737 #### [facility] [address] [address] Apn: Ozzie Callejas MD eGFR NON-AFR. GREENLANDIC 41 mL/min/1.73m2 Low > OR = 60 [facility] Comment on above: Performed By: #### 5 8984, 7600, 24876 #### [facility] of [address] [address] [address] [place] [address] Apn: Ozzie Callejas MD GFR/1.73 sq M.predicted among blacks MDRD (S/P/Bld) [Vol rate/Area] 47 mL/min/{1.73_m2} Low > OR = 60 [facility] Comment on above: Performed By: #### 5 8984, 7600, 75305 #### [facility] [address], [address] [place] [address] Apn: Ozzie Callejas MD Globulin (S) [Mass/Vol] 2.2 g/dL Normal 1.9-3.7 [facility] Comment on above: Performed By: #### 5 89, 7600, 61232 #### [facility] [address] [address] Apn: Ozzie Callejas MD Glucose [Mass/Vol] 92 mg/dL Normal 65-99 [facility] Comment on above: Result Comment: Fasting reference interval Performed By: #### 5 89, 7600, 47155 #### [facility] [address] [address] Apn: Ozzie Callejas MD Potassium [Moles/Vol] 4.3 mmol/L Normal 3.5-5.3 [facility] Comment on above: Performed By: #### 5 8984, 7600, 05762 #### [facility] [address] [address] Apn: Ozzie Callejas MD Protein [Mass/Vol] 6.2 g/dL Normal 6.1-8.1 [facility] Comment on above: Performed By: #### 5 89, 7600, 58378 #### [facility] [address] [address] Apn: Ozzie Callejas MD Sodium [Moles/Vol] 137 mmol/L Normal 135-146 [facility] Comment on above: Performed By: #### 5 89, 7600, 25494 #### [facility] of [address], [address] [place] [address] Apn: Ozzie Callejas MD Urea nitrogen [Mass/Vol] 19 mg/dL Normal 7-25 [facility] Comment on above: Performed By: #### 5 8984, 7600, 79485 #### [facility] [address], [address] [place] [address] Apn: Ozzie Callejas MD Urea nitrogen/Creatinin e [Mass ratio] 12 mg/mg Normal 6-22 [facility] Comment on above: Performed By: #### 5 8984, 7600, 40812 #### [facility] [address], [address] [place] [address] Apn: Ozzie Callejas MD LIPID PANEL, [facility] 06- Cholesterol [Mass/Vol] 114 mg/dL Normal <200 [facility] Comment on above: Order Comment: FASTI NG:YES FASTING: YES Performed By: #### 5 8984, 7600, 33002 #### [facility] [address], [address] [place] [address] Apn: Ozzie Callejas MD Cholesterol in HDL [Mass/Vol] 47 mg/dL Normal > OR = 40 [facility] Comment on above: Order Comment: FASTI NG:YES FASTING: YES Performed By: #### 5 8984, 7600, 32672 #### [facility] [address], [address] [place] [address] Apn: Ozzie Callejas MD Cholesterol in LDL [Mass/Vol] [...] equation in the estimation of LDL-C. Jay Jya SS et al. MARIBEL. 2013;310(19): 7871-5640 (http://education.[facility].com/faq/KYK527) Performed By: #### 5 8984, 7600, 43822 #### [facility] [address], [address] [place] [address] Apn: Ozzie Callejas MD Cholesterol.total/ Cholesterol in HDL [Mass ratio] 2.4 {ratio} Normal <5.0 [facility] Comment on above: Order Comment: FASTI NG:YES FASTING: YES Performed By: #### 5 8984, 7600, 22762 #### [facility] [address], [address] [place] [address] Apn: Ozzie Callejas MD NON HDL CHOLESTEROL 67 mg/dL (calc) Normal <130 [facility] Comment on above: Order Comment: FASTI NG:YES FASTING: YES Result Comment: For patients with diabetes plus 1 major ASCVD risk factor, treating to a non-HDL-C goal of <100 mg/dL (LDL-C of <70 mg/dL) is considered a therapeutic option. Performed By: #### 5 8984, 7600, 23288 #### [facility] [address], [address] [place] [address] Apn: Ozzie Callejas MD Triglyceride [Mass/Vol] 60 mg/dL Normal <150 [facility] Comment on above: Order Comment: FASTI NG:YES FASTING: YES Performed By: #### 5 8984, 7600, 58494 #### [facility] [address], [address] [place] [address] Apn: Ozzie Callejas MD TSH+FREE T4on 10-01-2021 Free T4 [Mass/Vol] 1.6 ng/dL Normal 0.8-1.8 [facility] Comment on above: Performed By: #### 5 8984, 7600, 86394 #### [facility] [address], [address] [place] [address] Apn: Ozzie Callejas MD TSH Qn 0.68 m[IU]/L Normal 0.40-4.50 [facility] Comment on above: Performed By: #### 5 8984, 7600, 13808 #### [facility] [address], [address] [place] [address] Apn: Ozzie Callejas MD Tobacco Screening.on 022 Fall risk assessment a) No falls within the last year [facility] [employer] Work Phone: Tobacco use status [facility] b) No [facility] [employer] Work Phone: BASIC METABOLIC PANELon - Calcium [Mass/Vol] 8.8 mg/dL Normal 8.6-10.3 [facility] Comment on above: Order Comment: FASTI NG:UNKNOWN FASTING: UNKNOWN Performed By: #### 1 0165 #### [facility] [address], [address] [place] [address] Apn: Ozzie Callejas MD Chloride [Moles/Vol] 99 mmol/L Normal 98-110 [facility] Comment on above: Order Comment: FASTI NG:UNKNOWN FASTING: UNKNOWN Performed By: #### 1 0165 #### [facility] [address], [address] [place] [address] Apn: Ozzie Callejas MD CO2 [Moles/Vol] 28 mmol/L Normal 20-32 [facility] Comment on above: Order Comment: FASTI NG:UNKNOWN FASTING: UNKNOWN Performed By: #### 1 0165 #### [facility] [address], [address] [place] [address] Apn: Ozzie Callejas MD Creatinine [Mass/Vol] 1.34 mg/dL High 0.70-1.11 [facility] Comment on above: Order Comment: FASTI NG:UNKNOWN FASTING: UNKNOWN Result Comment: For patients >49 years of age, the reference limit for Creatinine is approximately 13% higher for people identified as -Indian. Performed By: #### 1 0165 #### [facility] [address], [address] [place] [address] Apn: Ozzie Callejas MD eGFR NON-AFR. GREEN[place]IC 49 mL/min/1.73m2 Low > OR = 60 [facility] Comment on above: Order Comment: FASTI NG:UNKNOWN FASTING: UNKNOWN Performed By: #### 1 0165 #### [facility] [address] [address] Apn: Ozzie Callejas MD GFR/1.73 sq M.predicted among blacks MDRD (S/P/Bld) [Vol rate/Area] 57 mL/min/{1.73_m2} Low > OR = 60 [facility] Comment on above: Order Comment: FASTI NG:UNKNOWN FASTING: UNKNOWN Performed By: #### 1 0165 #### [facility] [address] [place] [address] Apn: Ozzie Callejas MD Glucose [Mass/Vol] 84 mg/dL Normal 65-99 [facility] Comment on above: Order Comment: FASTI NG:UNKNOWN FASTING: UNKNOWN Result Comment: Fasting reference interval Performed By: #### 1 0165 #### [facility] [address] [place] [address] Apn: Ozzie Callejas MD Potassium [Moles/Vol] 4.3 mmol/L Normal 3.5-5.3 [facility] Comment on above: Order Comment: FASTI NG:UNKNOWN FASTING: UNKNOWN Performed By: #### 1 0165 #### [facility] [address] [place] [address] Apn: Ozzie Callejas MD Sodium [Moles/Vol] 135 mmol/L Normal 135-146 [facility] Comment on above: Order Comment: FASTI NG:UNKNOWN FASTING: UNKNOWN Performed By: #### 1 0165 #### [facility] [address] [place] [address] Apn: Ozzie Callejas MD Urea nitrogen [Mass/Vol] 20 mg/dL Normal 7-25 [facility] Comment on above: Order Comment: FASTI NG:UNKNOWN FASTING: UNKNOWN Performed By: #### 1 0165 #### [place] [address] Apn: Ozzie Callejas MD Urea nitrogen/Creatinin e [Mass ratio] 15 mg/mg Normal 6-22 [facility] Comment on above: Order Comment: FASTI NG:UNKNOWN FASTING: UNKNOWN Performed By: #### 1 0165 #### [facility] [address] [facility], [address] [place] [address] Apn: Ozzie Callejas MD Vital Signs Date Time Vital Sign Value Performing Clinician Facility 05-24-2023 12:05-0500 Diastolic blood pressure 68 mm[Hg] Blaise Marie [facility] 05-24-2023 12:05-0500 Systolic blood pressure 98 mm[Hg] Blaise [facility] DO [facility] 05-24-2023 11:30-0500 Body height 180.3 cm Blaise Marie DO Work [facility] 05-24-2023 11:30-0500 Body mass index (BMI) [Ratio] 20.35 kg/m2 Blaise Marie DO [facility] 05-24-2023 11:30-0500 Body temperature 97.7 [degF] Blaise Marie DO [facility] 05-24-2023 11:30-0500 Body weight 66.18 kg Blaise Marie DO [facility] 05-24-2023 11:30-0500 Heart rate 87 /min Blaise Marie DO [facility] [employer] 05-24-2023 11:30-0500 SaO2% (BldA) [Mass fraction] 93 % Blaise Marie DO Work Phone: [facility] Comment on above: pt is on o2 at home , hands are cold 02-02-2023 15:26-0400 Body height 180.3 cm Poli Campbell MD Work Phone: [facility] 02-02-2023 15:26-0400 Body temperature 97.3 [degF] Poli Campbell MD Work Phone: [facility] 02-02-2023 15:26-0400 Body weight 68.77 kg Poli Campbell MD Work Phone: [facility] 02-02-2023 15:26-0400 Diastolic blood pressure 67 mm[Hg] Poli Campbell MD Work Phone: [facility] 02-02-2023 15:26-0400 Heart rate 73 /min Poli Campbell MD Work Phone: [facility] 02-02-2023 15:26-0400 Respiratory rate 18 /min Poli Campbell MD Work Phone: [facility] 02-02-2023 15:26-0400 SaO2% (BldA) [Mass fraction] 97 % Poli Campbell MD Work Phone: [facility] 02-02-2023 15:26-0400 Systolic blood pressure 119 mm[Hg] Poli Campbell MD Work Phone: [facility] 11-12-2022 11:19-0400 Body mass index (BMI) [Ratio] 20.73 kg/m2 Blaise Marie Work Phone: OG-Fwqeheghpd-[place]ebb [place] Work Phone: 11-12-2022 11:19-0400 Body surface area Derived from formula 1.86 m2 Blaise Marie Work Phone: VU-Mosjywooxc-Qrey [facility] [place] [facility] Work Phone: 11-12-2022 11:19-0400 Body weight 67.4 kg Blaise Marie Work Phone: KF-Eraekwizwv-Fpmk [facility] [place] [facility] Work Phone: 11-12-2022 10:42-0400 Diastolic blood pressure 64 mm[Hg] Blaise Marie Work Phone: GB-Gvkffzkvap-Dlgt [place] Work Phone: 11-12-2022 10:42-0400 Heart rate 89 /min Blaise Marie Work Phone: QU-Jkskcyqwhf-Hfdm [place] Work Phone: 11-12-2022 10:42-0400 Systolic blood pressure 98 mm[Hg] Blaise Marie Work Phone: QA-Xrtvfrucpn-Vxjl [facility] [place] A Work Phone: 05-07-2022 10:39-0500 Body mass index (BMI) [Ratio] 20.92 kg/m2 Blaise Beck Cnythia Work Phone: MW-Tpgbdvvvbv-[place]b [place] [address]99 DO Work Phone: 05-07-2022 10:39-0500 Body surface area Derived from formula 1.87 m2 Blaise Beck Cynthia Work Phone: PS-Yllcamczjw-Asii [place] 2099 DO Work Phone: 05-07-2022 10:39-0500 Body weight 68.04 kg Blaise Mcelroyiva Work Phone: KR-Orkbrtezst-Hcen [place] 2099 DO Work Phone: 05-07-2022 10:39-0500 Diastolic blood pressure 61 mm[Hg] Blaise Beck Cynthia Work Phone: ZB-Hndgyntxim-Vinp [place] 2099 DO Work Phone: 05-07-2022 10:39-0500 Heart rate 90 /min Blaise Beck Cynthia Work Phone: MZ-Fukoqggiqt-Sivw [place] 2099 DO Work Phone: 05-07-2022 10:39-0500 SaO2% (BldA) [Mass fraction] 98 % Blaise Beck Cynthia Work Phone: DE-Rpzpegpvnd-Mleu [place] 2099 DO Work Phone: 05-07-2022 10:39-0500 Systolic blood pressure 112 mm[Hg] Blaise Marie Work Phone: TM-Vcjbhpalnd-Onkl [place] 2099 DO Work Phone: 09-25-2021 10:13-0400 Body mass index (BMI) [Ratio] 22.32 kg/m2 Blaise Marie Work Phone: NX-Qpvhijfxoa-Hsia [place] 2099 DO Work Phone: 09-25-2021 10:13-0400 Body surface area Derived from formula 1.92 m2 Blaise Marie Work Phone: JR-Eapctmxinq-Imut [place] 2099 DO Work Phone: 09-25-2021 10:13-0400 Body weight 72.57 kg Blaise Marie Work Phone: JG-Zdpnzgipyf-Udpr [place] 2099 DO Work Phone: 09-25-2021 10:13-0400 Diastolic blood pressure 75 mm[Hg] Blaise Marie Work Phone: GG-Odeacwiopv-Wilh [place] 2099 DO Work Phone: 09-25-2021 10:13-0400 Heart rate 85 /min Blaise Marie Work Phone: DZ-Xengfzsetb-Gper [place] 2099 DO Work Phone: 09-25-2021 10:13-0400 SaO2% (BldA) [Mass fraction] 96 % Blaise Marie Work Phone: MU-Hffzqkbedi-Gpqa [place] 2099 DO Work Phone: 09-25-2021 10:13-0400 Systolic blood pressure 106 mm[Hg] Blaise Marie Work Phone: PC-Fbkdqjsipo-Wwhg [place] 2099 DO Work Phone: 06-12-2021 09:38-0500 0 1 Blaise Marie [facility] Work Phone: Comment on above: [employer] 11-14-2020 10:23-0400 Body height 180.34 cm Blaise Isaacrachael Work Phone: TG-Rsapkyazck-Whcj [place] 2099 DO Work Phone: 11-14-2020 10:23-0400 Body mass index (BMI) [Ratio] 22.87 kg/m2 Blaise Mcelroyiva Work Phone: [facility] 2099 DO Work Phone: 11-14-2020 10:23-0400 Body surface area Derived from formula 1.94 m2 Blaise Beck Cynthia Work Phone: [facility] 2099 DO Work Phone: 11-14-2020 10:23-0400 Body weight 74.39 kg Blaise Beck Cynthia Work Phone: [facility] 2099 DO Work Phone: 11-14-2020 10:23-0400 Diastolic blood pressure 74 mm[Hg] Blaise Mcelroyiva Work Phone: UV-Sceiuvgmhx-Zlez [place] 2099 DO Work Phone: 11-14-2020 10:23-0400 Systolic blood pressure 116 mm[Hg] Blaise Beck Cynthia Work Phone: [facility] 2099 DO Work Phone: 12-22-2018 13:54-0400 BMI (Body Mass Index) 21.2 kg/m2 Rodriguez Quiroz XH-Qxlydtb-Bnzwtgc e 2470 Work Phone: 12-22-2018 13:54-0400 Body weight 68.95 kg Rodriguez Quiroz BR-Tjipgjc-Tudsl ak e 2470 Work Phone: 12-22-2018 13:54-0400 BP Diastolic 72 mm[Hg] Rodriguez Quiroz BW-Dmmwngz-Babum ak e 2470 Work Phone: 12-22-2018 13:54-0400 BP Systolic 111 mm[Hg] Rodriguez CERVANTESQU-Jhlhpwj-Oubmu ak e 2470 Work Phone: 12-22-2018 13:54-0400 BSA (Body Surface Area) 1.88 m2 Rodriguez CERVANTESIH-Nnavpbj-Gwakurg e 2470 Work Phone: 12-22-2018 13:54-0400 Height 180.34 cm Rodriguez CERVANTESFT-Zpmikme-Kcppy ak e 2470 Work Phone: 12-22-2018 13:54-0400 Pulse (Heart Rate) 73 /min Rodriguez CERVANTES-Urology-Jessee winstonlak e 9750 Work Phone: Encounters Encounter Date Encounter Type Care Provider Facility Start: 11-11-2023 End: 11-11-2023 ambulatory [facility] Ambulatory Start: 10-31-2023 End: 10-31-2023 ambulatory [facility] Ambulatory Start: 10-25-2023 End: 10-25-2023 ambulatory [facility] Start: 09-08-2023 End: 09-08-2023 ambulatory [facility] Start: 09-07-2023 End: 09-07-2023 ambulatory [facility] Start: 08-09-2023 End: 08-09-2023 [facility] Start: 07-19-2023 End: 07-19-2023 ambulatory [facility] Start: 07-04-2023 End: 07-04-2023 ambulatory [facility] Start: 07-01-2023 Refill Blaise Brunson O Work Phone: [facility] Comment on above: Mixed hyperlipidemia Start: 06-16-2023 Refill Blaise Brunson O Work Phone: [facility] Comment on above: Other specified hypo thyroidism Start: 06-14-2023 End: 06-14-2023 ambulatory [facility] Ambulatory Start: 06-14-2023 End: 06-14-2023 Office outpatient visit 15 minutes Sweetie Burr MD Work Phone: 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 ([facility]); Chronic lymphocytic leukemia of B-cell type not having achieved remission ([facility]); Bronchiectasis; Paroxysmal atrial fibrillation ([facility]); Chronic renal impairment, stage 3a ([facility]) Start: 05-13-2023 End: 05-13-2023 ambulatory [facility] Ambulatory Start: 05-05-2023 End: 05-05-2023 ambulatory [facility] Start: 04-29-2023 Refill Blaise Chadwick Work Phone: [facility] Comment on above: Gastro-esophageal re flux disease without esophagitis Start: 04-29-2023 End: 04-29-2023 Phys/qhp telephone evaluation 21-30 min Rodriguez Quiroz MD Work Phone: [facility] Comment on above: Pneumonia due to Pse udomonas species, unspecified laterality, unspecified part of lung (CMS/HCC) (Primary Dx); Bronchiectasis without complication (CMS/HCC) Start: 04-29-2023 End: 04-29-2023 ambulatory [facility] Ambulatory Start: 04-27-2023 End: 04-27-2023 ambulatory BLAISE Beck [facility] Start: 04-27-2023 End: 04-27-2023 ambulatory RABIA P [facility] Start: 04-17-2023 Refill Blaise Brunson O Work Phone: [facility] Comment on above: Bronchiectasis Start: 04-05-2023 End: 04-05-2023 ambulatory [facility] Start: 02-11-2023 End: 02-11-2023 Office outpatient visit 40 minutes Sweetie Burr MD Work Phone: 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 Lilibethharachael Facility:[id number] Start: 08-06-2022 Office outpatient vi sit 25 minutes Blaise Beck Lilibethiva Work Phone: SU-Tbjvqyjyzw-Senhob ke 2100 DO Work Phone: Start: 08-06-2022 Patient encounter procedure Clary Marie Work Phone: NP-Uklejpssef-Ekofks ke 2100 DO Work Phone: Start: 08-06-[address] Bl[address] rd Lilibethrachael Facility:[id number] Start: 06-10-2022 Chart Update Blaise Marie Work Phone: [facility] Work Phone: Start: 05-20-2022 Chart Update Blaise Beck Ponchorachael Work Phone: [facility] Work Phone: Start: 05-19-2022 Chart Update Blaise Beck Poncohrachael Work Phone: [facility] Work Phone: Start: 05-18-2022 AUDIT Blaise Beck Lilibethiva Work Phone: [facility] Work Phone: Start: 05-10-2022 Chart Update Blaise Marie Work Phone: [facility] Work Phone: Start: 05-07-2022 Office outpatient vi sit 40 minutes Blaise Marie Work Phone: HI-Knpjfnpzts-Ctahbw Work Phone: Start: 05-07-2022 Patient encounter procedure Clary Marie Work Phone: HS-Xbshidipnm-Vfrlcl ke 2100 DO Work Phone: Start: 05-07-[address] Bl[address] Add[address] rd Yuiva Facility:[id number] Start: 05-05-2022 Encounter for prepro cedural laboratory examination RABIA JACOBSON . [facility] Start: 05-03-2022 End: 05-03-2022 ambulatory RABIA JACOBSON . Facility:H1 Start: 04-30-2022 End: 05-01-2022 ambulatory RABIA JACOBSON . Facility:[facility]1 Start: 04-30-2022 End: 05-01-2022 Encounter for preprocedural laboratory examination RABIA JACOBSON . Facility:[facility]1 Start: 03-19-[address] Bl[address] [place] Facility:[id number] Start: 03-19-2022 Phys/qhp telephone evaluation 21-30 min Blaise Marie Work Phone: [facility] Work Phone: Start: 10-09-2021 Phys/qhp telephone evaluation 21-30 min Blaise Marie Work Phone: [facility] [place] Work Phone: Start: 09-25-2021 Office outpatient vi sit 25 minutes Blaise Marie Work Phone: OR-Fwfbkoekpn-Qpfksp ke 2100 DO Work Phone: Start: 07-09-2021 AUDIT Blaise Marie Work Phone: [facility] Work Phone: Start: 06-12-2021 Phys/qhp telephone evaluation 21-30 min Blaise Marie Work Phone: [facility] Work Phone: Start: 05-15-2021 Office outpatient vi sit 15 minutes Blaise Marie Work Phone: VN-Dnncbsbqco-Shnlsz ke 2100 DO Work Phone: Start: 01-16-2021 Phys/qhp telephone evaluation 21-30 min Blaise Marie Work Phone: [facility]fectious Disease-[place] Work Phone: Start: 12-17-2020 Rx Change Blaise Marie Work Phone: [facility] Work Phone: Start: 11-14-2020 Office outpatient vi sit 25 minutes Blaise Marie Work Phone: WH-Suyjevnlaz-Crawxm ke 2100 DO Work Phone: Start: 12-22-2018 Patient encounter procedure Rodriguez anderson WB-Eduvcvc-Ekothsvt 2470 Work Phone: Start: 06-16-2018 Patient encounter procedure Rodriguez anderson BF-Ueljztmkpe-Wabpla Work Phone: Start: 12-23-2017 Patient encounter procedure Rodriguez anderson DB-Lkvgybkupx-Dsjxsl Work Phone: Start: 08-16-2017 Patient encounter procedure Rodriguez anderson CU-Hufpbrbygj-Szvsom Work Phone: Start: 06-17-2017 Patient encounter procedure Rodriguez anderson RT-Rplvmbzwcz-Zohfyf Work Phone: Start: 06-07-2017 Patient encounter procedure Rodriguez anderson PH-Ffrpyrskta-Teksgt Work Phone: Start: 04-29-2017 Patient encounter procedure Rodriguez anderson QA-Htrrsnnbcq-Lywvwj Work Phone: Start: 02-15-2017 Patient encounter procedure Rodriguez anderson TI-Vvsharrgqm-Wtgwln Work Phone: Procedures Date Procedure Procedure Detail [...] Td Vaccines (2 - Td or Tdap) [facility] Start: 01-21-2033 DTaP/Tdap/Td Vaccine s (2 - Td or Tdap) DTaP/Tdap/Td Vaccines (2 - Td or Tdap) [facility] Start: 01-21-2033 Urine microalbumin profile DTaP,Tdap,Td Vaccine (2 - Td or Tdap) [facility] Start: 02-02-2026 Diabetes Screening Diabetes Screenin g [facility] Start: 05-24-2024 Adult BMI Screening Adult BMI Screen ing [facility] Start: 05-24-2024 Depression Screening Depression Scre ening [facility] Start: 05-24-2024 Fall Risk Screening Fall Risk Screen ing [facility] Start: 05-24-2024 Tobacco Screening Tobacco Screening [facility] Start: 04-05-2024 Adult BMI Screening Adult BMI Screen ing [facility] Start: 04-05-2024 Depression Screening Depression Scre ening [facility] Start: 04-05-2024 Fall Risk Screening Fall Risk Screen ing [facility] Start: 04-05-2024 Tobacco Screening Tobacco Screening [facility] Start: 02-03-2024 End: 05-04-2024 CBC W Auto Differential panel - Blood CBC + DIFF Lab Routine Monoclonal B-cell lymphocytosis Expected: 02/03/2024 (Approximate), Expires: 05/04/2024 [facility] Work Phone: Comment on above: Expected: 02/03/2024 (Approximate), Expires: 05/04/2024 Start: 02-03-2024 End: 05-04-2024 Comprehensive metabolic 2000 panel - Serum or Plasma COMP METABOLIC PANEL Lab Routine Monoclonal B-cell lymphocytosis Expected: 02/03/2024 (Approximate), Expires: 05/04/2024 [facility] Work Phone: Comment on above: Expected: 02/03/2024 (Approximate), Expires: 05/04/2024 Start: 02-03-2024 End: 05-04-2024 Lactate dehydrogenase [Enzymatic activity/volume] in Serum or Plasma LD LACTATE DEHYDRO Lab Routine Monoclonal B-cell lymphocytosis Expected: 02/03/2024 (Approximate), Expires: 05/04/2024 [facility] Work Phone: Comment on above: Expected: 02/03/2024 (Approximate), Expires: 05/04/2024 Start: 10-25-2023 End: 10-25-2023 Patient encounter procedure 10/25/2023 2:00 PM EDT Office Visit [facility] [address] [place] [id number] Sweetie Burr MD [address] [facility], [address] [place] [address] [facility] Start: 07-19-2023 End: 07-19-2023 Patient encounter procedure 07/19/2023 1:00 PM EDT [facility] [address] [place] [address] [facility] Start: 07-09-2023 Medicare Annual Wellness Visit Medicare Annual Wellness Visit [facility] Start: 04-29-2023 End: 04-29-2023 Telemedicine consultation with patient 04/29/2023 9:20 AM EST [place]med[place] [facility] [place] [address] [address] [place] [address] [place] [address] [place] [address] [facility] Start: 04-27-2023 End: 04-27-2023 Patient encounter procedure 04/27/2023 11:00 AM EST Appointment [facility] [address] [place] [address] [facility] Start: 03-02-2023 End: 06-01-2023 PROTEIN ELECTROPHORESIS SERUM W/INTERP PROTEIN ELECTROPHORESIS SERUM W/INTERP Lab Routine Monoclonal B-cell lymphocytosis Expected: 03/02/2023 (Approximate), Expires: 06/01/2023 [facility] Work Phone: Comment on above: Expected: 03/02/2023 (Approximate), Expires: 06/01/2023 Start: 02-24-2023 COVID-19 Vaccine (4 - Pfizer risk series) COVID-19 Vaccine (4 - Pfizer risk series) [facility] Start: 02-24-2023 COVID-19 Vaccine ( season) COVID-19 Vaccine ( season) [facility] Start: 02-24-2023 Covid-19 Vaccine ( season) Covid-19 Vaccine ( season) [facility] Start: 02-24-2023 COVID-19 Vaccine ( season) COVID-19 Vaccine ( season) [facility] Start: 02-11-2023 VIRJEFF, Provider : Sweetie Burr, Status: Pen, Time: 10:30 AM CHERELLE, Provider: Sweetie Burr, Status: Pen, Time: 10:30 AM BC-Jabbkbwukn-Tynv [place] Work Phone: Start: 02-02-2023 End: 05-04-2023 MONOCLONAL PROTEIN, SERUM (BLOOD) [facility] Work Phone: Comment on above: Expected: 02/02/2023 , Expires: 05/04/2023 Start: 11-19-2022 FUV, Provider: Sweetie Burr, Status: Pen, Time: 10:30 AM FUV, Provider: Sweetie Burr, Status: Pen, Time: 10:30 AM [facility] 2100 DO Work Phone: Start: 08-06-2022 VIRFUVNERYE, Provider : Sweetie Burr, Status: Pen, Time: 10:15 AM VIRFUVHOME, Provider: Sweetie Burr, Status: Pen, Time: 10:15 AM [facility] Work Phone: Start: 04-11-2022 Advance Directive Discussion Advance Directive Discussion [facility] Start: 04-11-2022 Depression Assessment Depression Ass essment [facility] Start: 03-26-2022 FUV, Provider: Sweetie Burr, Status: Pen, Time: 10:00 AM FUV, Provider: Sweetie Burr, Status: Pen, Time: 10:00 AM [facility] 2099 DO Work Phone: Start: 10-09-2021 VIRFUCARLINE, Provider : Rodriguez Quiroz, Status: Pen, Time: 8:20 AM VIRFUVHOME, Provider: Rodriguez Quiroz, Status: Pen, Time: 8:20 AM [facility] Bo Work Phone: Start: 09-25-2021 FUV, Provider: Sweetie Burr, Status: Pen, Time: 10:00 AM FUV, Provider: Sweetie Burr, Status: Pen, Time: 10:00 AM [facility] Bo Work Phone: Start: 06-12-2021 VIRFUVSALVADOR, Provider : Rodriguez Quiroz, Status: Pen, Time: 9:40 AM VIRFUVHOME, Provider: Rodriguez Quiroz, Status: Pen, Time: 9:40 AM [facility] 2100 DO Work Phone: Start: 05-15-2021 CHERELLE, Provider : Sweetie Burr, Status: Pen, Time: 10:15 AM CHERELLE, Provider: Sweetie Burr, Status: Pen, Time: 10:15 AM [facility] 2100 DO Work Phone: Start: 1958 Diabetes mellitus screening Diabetes Screening [facility] Start: 1938 Lipid panel Lipid Panel [facility] Start: 1938 Medicare Annual Wellness Visit Medicare Annual Wellness Visit (AWV) [facility] Start: 1938 Thyroid stimulating hormone measurement TSH Level [facility] End: 05-24-2024 CBC panel - Blood by Automated count CBC without diff Lab Routine Chronic obstructive pulmonary disease, unspecified COPD type (CMS-HCC) 1 Occurrences starting 05/24/2023 until 05/24/2024 [employer] Work Phone: Comment on above: 1 Occurrences starti ng 05/24/2023 until 05/24/2024 CBC panel - Blood by Automated count CBC without diff Lab Routine Chronic obstructive pulmonary disease, unspecified COPD type (CMS-HCC) 05/24/2023 9:52 PM EST [email or web address] System CBC W Auto Different ial panel - Blood CBC + DIFF Lab Routine Monoclonal B-cell lymphocytosis 02/02/2023 3:25 PM EDT [facility] Work Phone: End: 08-11-2024 Comprehensive metabolic 2000 panel - Serum or Plasma Comprehensive metabolic panel Lab Routine Bronchiectasis without complication (CMS/HCC) 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) q 3 month for 4 Occurrences starting 02/11/2023 until 08/11/2024 [facility] Work Phone: Comment on above: q 3 month for 4 Occu rrences starting 02/11/2023 until 08/11/2024 End: 02-12-2024 IgG [Mass/volume] in Serum or Plasma IgG Lab Routine Bronchiectasis without complication (CMS/HCC) 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 Planned Goals not documented RK-Iecnubjbrf-Zfnr na Work Phone: Immunizations Immunization Date Immunization Notes Care Provider [facility] 01-21-2023 respiratory syncytia l virus (RSV) vaccine, adjuvanted (AREXVY) Poli Campbell MD Work Phone: [facility] 01-21-2023 tetanus toxoid, redu leatha diphtheria toxoid, and acellular pertussis vaccine, adsorbed Poli Campbell MD Work Phone: [facility] 12-30-2022 influenza (HD-IIV4) vaccine, age 65+ yr, high dose, quadrivalent, PF (FLUZONE HIGH-DOSE) Poli Campbell MD Work Phone: [facility] 12-30-2022 Pfizer COVID-19 vacc ine, Fall 2022, 12 years and older, (30mcg/0.3mL) Sweetie Burr MD Work Phone: [facility] Work Phone: 10-13-2022 zoster vaccine recombinant Poli Campbell MD Work Phone: [facility] 08-10-2022 zoster vaccine recombinant Poli Campbell MD Work Phone: [facility] 01-06-2022 Fluzone High-Dose Quadrivalent 0.7 ML Intramuscular Suspension Prefilled Syringe Blaise Mcelroyiva Work Phone: [facility] 01-06-2022 Pfizer COVID-19 Vac Bivalent 30 MCG/0.3ML Intramuscular Suspension Blaise Isaacrachael Work Phone: [facility] Work Phone: 08-12-2021 Comirnaty 30 MCG/0.3 ML Intramuscular Suspension Blaise Mcelroyiva Work Phone: [facility] [place] Work Phone: 01-28-2021 Fluad Quadrivalent 0 .5 ML Intramuscular Prefilled Syringe Blaise Beck Cynthia Work Phone: [facility] 01-28-2021 Pfizer-BioNTech COVI D-19 Vacc 30 MCG/0.3ML Intramuscular Suspension Blaise Mcelroyiva Work Phone: [facility] Bo Work Phone: 05-28-2020 Pfizer-BioNTech COVI D-19 Vacc 30 MCG/0.3ML Intramuscular Suspension Blaise Mcelroyiva Work Phone: [facility] Work Phone: 05-05-2020 COVID-19, mRNA, LNP- S, PF, 100mcg/0.5mL Dose Blaise Marie DO Work Phone: [facility] 05-05-2020 Pfizer-BioNTech COVI D-19 Vacc 30 MCG/0.3ML Intramuscular Suspension Blaise Beck Cynthia Work Phone: [facility] 01-11-2020 Fluad Quadrivalent 0 .5 ML Intramuscular Prefilled Syringe Blaise Beck Cynthia Work Phone: [facility] 02-27-2019 pneumococcal polysaccharide vaccine, 23 valent Blaise Ebony Marie Work Phone: [facility] 12-28-2018 AS03 adjuvant Poli Campbell MD Work Phone: [facility] 12-28-2018 Seasonal trivalent influenza vaccine, adjuvanted, preservative free Blaise Mcelroyhas Work Phone: [facility] 01-20-2018 influenza, high dose seasonal, preservative-free Blaise Beck Yuhas Work Phone: [facility] 01-18-2018 influenza, injectabl e, quadrivalent, contains preservative Poli Campbell MD Work Phone: [facility] 04-29-2017 pneumococcal conjuga te vaccine, 13 valent; Translations: [Prevnar 13 Intramuscular Suspension] Rodriguez [facility] Comment on above: Series: 04-11-2017 pneumococcal conjuga te vaccine, 13 valent Blaise Isaacs Work Phone: [facility] 01-23-2017 influenza, injectabl e, quadrivalent, contains preservative Blaise Mcelroyhas Work Phone: [facility] 02-23-2016 influenza, high dose seasonal, preservative-free Blaise Beck Yuhas Work Phone: [facility] 01-29-2015 influenza, high dose seasonal, preservative-free Blaise eBck Yuhas Work Phone: [facility] 02-12-2014 influenza, seasonal, injectable Blaise Beck Yuhas Work Phone: [facility] 02-06-2013 influenza virus vacc ine, whole virus Blaise Isaacs Work Phone: [facility] 01-12-2012 influenza, seasonal, injectable Blaise Beck Yuhas Work Phone: [facility] 06-10-2011 pneumococcal polysaccharide vaccine, 23 valent Blaise Beck Yuhas Work Phone: [facility] Payers Date Payer Category Payer Unknown 2003 Medicare [id number] 1959 Medicare [id number] 1959 Unknown [id number] 1938 Unknown [id number] 2.16.84 0.1.330003.3.579.2.593 1938 Unknown [id number] 2.16.84 0.1.579739.3.579.2.593 1938 Unknown [id number] 2.16. 840.1.388429.3.579.2.356 1938 Unknown [id number] 2.16. 840.1.294094.3.579.2.356 1938 Unknown [id number] 2.16. 840.1.952173.3.579.2.356 1938 Unknown [id number] 2.16. 840.1.504997.3.579.2.356 1938 Unknown [id number] 2.16.8 40.1.965005.3.579.2.1285 1938 Unknown [id number] 2.16.8 40.1.980018.3.579.2.1285 1938 Unknown [id number] 2.16.8 40.1.719189.3.579.2.1285 1938 Unknown [id number] 2.16.8 40.1.931771.3.579.2.1285 1938 Unknown [id number] 2.16.84 0.1.265192.3.579.2.128 1938 Unknown [id number] 2.16.8 40.1.241062.3.579.2.1285 1938 Unknown [id number] 2.16.8 40.1.589707.3.579.2.1285 1938 Unknown [id number] 2.16.8 40.1.629283.3.579.2.1285 1938 Unknown [id number] 2.16.8 40.1.877703.3.579.2.1285 1938 Unknown [id number] 2.16.8 40.1.471448.3.579.2.128 1938 Unknown [id number] 2.16.8 40.1.319571.3.579.2.1285 1938 Unknown [id number] 2.16.8 40.1.323764.3.579.2.128 1938 Unknown [id number] 2.16.8 40.1.061975.3.579.2.1285 1938 Unknown [id number] 2.16.84 0.1.899163.3.579.2.128 1938 Unknown [id number] 2.16.84 0.1.171651.3.579.2.1285 1938 Unknown [id number] 2.16.8 40.1.306643.3.579.2.124 1938 Unknown [id number] 2.16.8 40.1.358328.3.579.2.1243 1938 Unknown [id number] 2.16.8 40.1.400726.3.579.2.1243 1938 Unknown [id number] 2.16.8 40.1.403761.3.579.2.1243 1938 Unknown [id number] 2.16.8 40.1.029740.3.579.2.1243 1938 Unknown [id number] 2.16.8 40.1.280823.3.579.2.1244 Social History Date Type Detail Facility Start: 02-02-2023 End: 03-17-2023 Former smoker Former smoker [facility] Start: 08-14-2021 End: 02-02-2023 Tobacco smoking status NHIS Ex-smoker [facility] History of tobacco use Current smoker [facility] History of tobacco use Cigarette Smoker C [facility] History of tobacco use Passive smoker [facility] Start: 08-14-2021 End: 02-02-2023 Tobacco use and exposure Smokeless tobacco non-user [facility] Start: 10-25-2023 Alcohol intake Ex-drinker (finding) [facility] Start: 02-02-2023 End: 03-17-2023 Tobacco use panel [facility] National Score (1-10 0), lower number is lower risk 87 [facility] Start: 1940 Sex Assigned At Not on file C [facility] Start: 02-11-2023 Tobacco smoking stat us NHIS Never smoked tobacco [facility] Start: 04-05-2023 End: 05-24-2023 Alcohol intake Current drinker of alcohol (finding) [facility] Has the [employer], or [employer] threatened to shut off services in your home in past 12Mo No [facility] Do you belong to any clubs or organizations such as taoism groups, unions, fraternal or athletic groups, or school groups? Yes [facility] Are you now , , , , never or living with a partner? [facility] How often to you hav e a drink containing alcohol? Monthly or less [facility] How often do you hav e 6 or more drinks on 1 occasion? Never [facility] Do you feel stress - tense, restless, nervous, or anxious, or unable to sleep at night because your mind is troubled all the time - these days [OSQ] Only a little [facility] Start: 03-09-2022 Education [address] [facility] Start: 1940 Sex Assigned At Male P [facility] Start: 04-16-2018 Gender identity Identifies as male gender (finding) [facility] Start: 04-16-2018 Sexual orientation Heterosexual (fin ding) [facility] Start: 04-19-2023 End: 04-29-2023 Exposure to SARS-CoV-2 (event) Not sure [facility] NEGATED: Highlighted row - - MX-Ovxmrhqrbn-Lprmz a Work Phone: Functional Status Date Assessment Result Facility NEGATED: Highlighted row Functional performance Functional status health issues are not documented Disease AG-Gpkkdpdwue-Txquf a Work Phone: Mental Status Date Assessment Result Facility NEGATED: Highlighted row Cognitive function [Interpretation] Cognitive status health issues are not documented Disease HR-Rtquwgheni-Dcdam a Work Phone: Clinical Notes 12-10-2018 to [...] work before next appointment in October 2023. [facility] Work Phone: 06-19-2023 Miscellaneous Notes Associated Problem(s): CVID (common variable immunodeficiency) (CMS/HCC) His level is back up to his baseline. His last creatinine was within normal limits. Continue Hizentra 7 g weekly infusions. Obtain IgG level blood work before next appointment in October 2023. documented in this encounter [facility] Work Phone: 06-14-2023 History of Present illness [...] discussion and plan. documented in this encounter [facility] Work Phone: 06-14-2023 Instructions Arabella Singh - 06/14/2023 12:15 PM EST Continue Hizentra 7 g weekly infusions. Obtain IgG level blood work before next appointment in October 2023. Continue 3% sodium chloride nebulizer as needed. Follow up Tuesday at [place], 10-25-2023 at 2:00 pm or sooner if symptoms worsen prior. documented in this encounter [facility] Work Phone: 05-24-2023 History of Present illness Narrative IM PROGRESS NOTE Patient - Rashad Phipps Age - 82 y.o. - 1940 ASSESSMENT & PLAN 1. Chronic obstructive pulmonary disease, unspecified COPD type ([facility]) -currently stable taking Breo once daily. However [...] predominant abnormalities of b-cell numbers and function ([facility]) -receiving Hizentra routinely -overall stable. Keep follow-up with immunology 4. Chronic lymphocytic leukemia of B-cell type not having achieved remission ([facility]) -early stage -no active treatment contemplated at this time. -keep follow-up with Oncology as previously scheduled. Repeat CBC 5. Bronchiectasis -chronic problem which is stable, but with exacerbations several times a year -keep regular follow-up with pulmonology regarding bronchoscopy 6. Paroxysmal atrial fibrillation ([facility]) -rate is currently controlled -continue Xarelto 20 mg daily 7. Chronic renal impairment, stage 3a ([facility]) -renal protective strategies reviewed with the patient [...] urinary frequency/urgency Immunologic: Recently was seen by chefs and Infectious Disease. They had no changes [...] Testing No results found. Blaise Marie DO., [facility] Physicians Office: [phone] documented in this encounter [facility] 04-29-2023 History of Present illness Narrative Infectious Diseases Clinic Follow-up: Reason for Visit: FOLLOW UP Telephone assessment History of Current Issue Patient was last evaluated 03/19/2022 but several calls and chart updates (05/18/22, 05/19/22 and 06/10/22) Patient has been following regularly with pulmonary medicine in [facility]. Patient currently using a flutter [...] pneumococci. Patient and his report hospitalization at [facility] in March 2023. Patient cannot recall [...] following more regularly with pulmonary medicine in [facility] (Dr. Jacobson) I have received [...] see if they would order that at [facility]. Alternatively I can print the requisition [...] information but can call ID office at [phone] I spent 40 minutes in the professional and overall care of this patient. Rodriguez Quiroz MD documented in this encounter [facility] Work Phone: 02-15-2023 Evaluation + Plan note Associated Problem(s): Pseudomonas aeruginosa colonization No growth in current culture from bronchoscopy. I would like him to continue to follow with Dr. Quiroz so he can stay in the loop of his case. That way if he develops another infection ID can give their opinion. [facility] Work Phone: 02-15-2023 Miscellaneous Notes Associated Problem(s): [...] function Associated Problem(s): CVID (common variable immunodeficiency) ([facility]/HCC) He will continue his infusions. He is [...] a great sign. documented in this encounter [facility] Work Phone: 02-15-2023 Evaluation + Plan note Associated Problem(s): Bronchiectasis ([facility]) His case is incredibly complicated due to his bronchietasis. He recently underwent a bronchoscopy with clearing of the excessive secretions he develops in his airways. Currently no growth from bronchoscopy which is a great sign. He is treated by Dr. Jacobson. 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 Jay in the past caused decreased renal function [facility] Work Phone: 02-15-2023 Evaluation + Plan note Associated Problem(s): CVID (common variable immunodeficiency) ([facility]) He will continue his infusions. [...] from bronchoscopy which is a great sign. [facility] Work Phone: 02-11-2023 History of Present illness Narrative Subjective Rashad Phipps is a 82 y.o. male who presents for Immunodeficiency and Recurrent Pneumonia. Chief Complaint Patient presents with Immunodeficiency Recurrent Pneumonia Patient is at home accompanied by his . Patient returned to Dr. Jacobson, Test Designer, in Apr 2022 for breathing issues. He [...] 02/12/2024 Order Specific Question: Release result to [employer] Answer: Immediate [1] Comprehensive metabolic panel Standing Status: Standing Number of Occurrences: 4 Standing Expiration Date: 08/11/2024 Order Specific Question: Release result to [employer] Answer: Immediate [1] Assessment/Plan CVID (common variable [...] discussion and plan. documented in this encounter [facility] Work Phone: 02-11-2023 Instructions Arabella Singh - 02/11/2023 10:30 AM EDT Continue Hizentra infusions. Obtain IgG level recheck every 3 months. I recommend followup with Dr. Quiroz, ID, and Dr. Jacobson, Test Designer. documented in this encounter [facility] Work Phone: 02-02-2023 Note HNO ID: [id number] Author: Poli Campbell MD Service: ? Author Type: Physician Type: Progress Notes Filed: 02/02/2023 4:25 PM Note Text: PATIENT NAME: Rashad Ham [facility] NO.: [id number] ATTENDING PHYSICIAN: Poli Campbell MD DATE OF [...] RRR without mur (more content not included)... [facility] 02-02-2023 History of Present illness Narrative PATIENT NAME: Rashad Phipps CLINIC NO.: [id number] ATTENDING PHYSICIAN: Poli Campbell MD DATE OF [...] below. Poli Campbell M.D. Hematology/Medical Oncology [facility] [phone] CC: Blaise Marie, documented in this encounter [facility] 08-06-2022 History of Present illness Narrative [...] have followup scheduledHe continues Xarelto 20 per clay miller but questions if this raises a bleeding [...] an appointment scheduled with VERONICA Garrison, yet. [employer] [place] A Work Phone: 08-06-2022 History of [...] have followup scheduledHe continues Xarelto 20 per clay miller but questions if this raises a bleeding [...] an appointment scheduled with VERONICA Garrison, yet. SG-Ttjgrzuybj-Vrmieucl 2100 DO Work Phone: 05-07-2022 History of [...] should start fluticasone.He continues Hizentra infusions from [facility], which are going well with no SE. His states his dose was never increased in Apr 2022. DT-Nntubjmpsr-Vgnsbicj 2100 DO Work Phone: 05-07-2022 History of [...] should start fluticasone.He continues Hizentra infusions from [facility], which are going well with no SE. His states his dose was never increased in Apr 2022. BW-Eahoksbnns-[employer] DO Work Phone: 10-25-2021 History of Present [...] yet.A had persistent Sx and saw a last model department supervisor at [facility], Dr. Rabia Jacobson, who performed bronchoscopy [...] when he spoke to him last month. YR-Ecsfajbzea-Trjbacmv 2100 DO Work Phone: 10-25-2021 History of [...] yet.A had persistent Sx and saw a last model department supervisor at [facility], Dr. Rabia Jacobson, who performed bronchoscopy [...] when he spoke to him last month. SK-Rajcyudgip-Bswsvz Work Phone: 06-11-2021 History of Present illness [...] susceptible to levofloxacin but intermediate susceptibility to xupyyjijau56/23/2020 Klebsiella pneumoniae susceptible to Cipro/levo, tobramycin and TMP-SMXTODAY 06/12/2021: -Infectious Disease-[facility] Bo Work Phone: 06-11-2021 History of Present [...] susceptible to levofloxacin but intermediate susceptibility to bardrxvgql81/23/2020 Klebsiella pneumoniae susceptible to Cipro/levo, tobramycin and [...] off 16 days. And refill pending. MG-Infectious Disease-[place] Work Phone: 05-15-2021 History of Present illness [...] was told this was not a concern. AI-Zrqwzczymu-Zidpbunu 2100 DO Work Phone: 11-09-2020 History of [...] more in the winter.His grandson is at [employer]. He is studying medicine.Kidneys are stable. [...] and more in the winter.Kidneys are stable. OA-Ipahlehgxt-Igmkwwai 2100 DO Work Phone: 12-10-2018 History of [...] and ZosynI did review previous cultures 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) Immunodeficiency with predominant T-cell defect, unspecified [facility] encounter [facility] Diagnosis Bronchiectasis without complication (CMS/HCC)- Primary 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 ([facility]/HCC) documented in this encounter [facility] Work Phone: Evaluation note* Diagnosis Bronchiectasis ([facility]) [facility] Diagnosis Pneumonia due to Pseudomonas species, unspecified laterality, unspecified part of lung (CMS/HCC)- Primary Bronchiectasis without complication ([facility]/HCC) documented in this encounter [facility] Work Phone: Evaluation note* Diagnosis Gastro-esophageal reflux disease without esophagitis [facility] Diagnosis Chronic obstructive pulmonary disease, unspecified COPD type ([facility]-H[facility])- Primary Mixed hyperlipidemia 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 ([facility]-H[facility]) Chronic lymphocytic leukemia of B-cell type not having achieved remission ([facility]) Bronchiectasis ([facility]) Paroxysmal atrial fibrillation ([facility]) Atrial fibrillation Chronic renal impairment, stage 3a ([facility]) [facility] Diagnosis Other specified hypothyroidism [facility] Diagnosis CVID (common variable immunodeficiency) (CMS/HCC)- Primary Common variable immunodeficiency documented in this encounter [facility] Work Phone: Evaluation note* Diagnosis Mixed hyperlipidemia [...] Disease Sweetie Burr MD [address] [facility], [place] [address] Referral ID Status Reason Start Date Expiration Date V isits Requested Visits Authorized [id number] Authorized 02/11/2023 02/11/2024 1 1 [facility] Work Phone: Reason for visit Narrative* Consultation (Routine) - Authorized Specialty Diagnoses / Procedures Referred By Contac t Referred To Contact Infectious Diseases Diagnoses Bronchiectasis without complication (CMS/HCC) Procedures Follow Up In Infectious Disease Sweetie Burr MD [address] [facility], [place] [address] Referral ID Status Reason Start Date Expiration Date V isits Requested Visits Authorized [id number] Authorized 02/11/2023 02/11/2024 1 1 [facility] Work Phone: Family History No Family History [...] care physician. Patient has not seen his first assistant recently. Last serum creatinine was 1.43 and [...] Verbal consent was requested and obtained from RASHDA PHIPPS on this date, 08/06/2022 10:15 AM [...] AUTHOR AUTHOR'S ORGANIZ ATION 06/21/2022 [facility] DATE CREATED AUTHOR AUTHOR'S ORGANIZ ATION 11/13/2022 [facility] DATE CREATED AUTHOR AUTHOR'S ORGANIZ ATION 11/17/2022 [employer] DATE CREATED AUTHOR AUTHOR'S ORGANIZ ATION 02/04/2023 [facility] DATE CREATED AUTHOR AUTHOR'S ORGANIZ ATION 09/08/2023 [facility] DATE CREATED AUTHOR AUTHOR'S ORGANIZ ATION 09/09/2023 [facility] DATE CREATED AUTHOR AUTHOR'S ORGANIZ ATION 10/29/2023 [facility] DATE CREATED AUTHOR AUTHOR'S ORGANIZ ATION 11/13/2023 [facility] Comments (unrecognize d section and content) In the event this informatio n is protected by the Federal Confidentiality of Alcohol and Drug Abuse Patient Records regulations: The Federal rules restrict any use of the information to criminally investigate or prosecute any alcohol or drug abuse patient.[facility] Reason for Visit (unrecogniz ed section and content) Reason Comments Leukemia New patient consulta tion Reason Comments Immunodeficiency Recurrent Pneumonia Reason Comments Med Refill Reason Comments Hypertension Hyperlipidemia Reason Comments Follow-up Blood work Care Teams (unrecognized sec tion and content) Field Service Consultant Relationship Specialty Start Date End Date Blaise Marie [address] [place] [address] PCP - General Internal Medicine 01/26/23 Field Service Consultant Relationship Specialty Start Date End Date Blaise Marie DO [address] [place] [address] PCP - General 04/12/16 Field Service Consultant Relationship Specialty Start Date End Date Blaise Marie DO [address] [place] [address] PCP - General Internal Medicine 12/20/16 Field Service Consultant Relationship Specialty Start Date End Date Blaise Marie DO [address] [place] [address] [facility] General 04/12/16 Field Service Consultant Relationship Specialty Start Date End Date Blaise Marie DO [address] [place] [address] PCP - General Internal Medicine 12/20/16 Field Service Consultant Relationship Specialty Start Date End Date Blaise Marie DO [address] [place] [address] PCP - General Internal Medicine 12/20/16 Field Service Consultant Relationship Specialty Start Date End Date Blaise Marie DO [address] [place] [address] PCP [facility] Internal Medicine 12/20/16 Field Service Consultant Relationship Specialty Start Date End Date Blaise Marie DO [address] [place] [address] [facility] 04/12/16 FOR RECORDS PERTAINING TO PATIENTS WHO [...] BE BASED ON THE PRIMARY CLINICAL RECORDS. [employer] [facility]. provides no warranty or guarantee of the accuracy or completeness of information in this document.
[2023-11-16] MEDS: LACTATED RINGER'S SOLUTION 1,000 ML 50 ML IV (11:33)
[2023-11-16] MEDS: LIDOCAINE HCL 1% 100 MG/10 ML MDV INJ (12:24)
--- NOTE | 2023-11-16 12:43 | P.ON_ITS ---
Date of procedure: 11/16/23 Procedure: Procedure Therapeutic flexible bronchoscopy Indication Mucous plugging, inability to clear secretions Findings 1. Diffuse mucous plugging throughout the entire bronchial tree, including large mucous plug in the right main bronchus 2. Dynamic airway collapse 3. No endobronchial lesions seen Anesthesia 1. General anesthesia - please see their records 2. Lidocaine 1% - 10mL Specimens Bronchoalveolar lavage of the right lower lobe sent for culture Estimated blood loss <1mL Complications None Description Informed consent was obtained after risks, benefits, and alternatives were discussed with the patient.? Time out was initiated to confirm the correct patient, site, and procedure with all present voicing in the affirmative. Patient was brought to the operating room suite where noninvasive monitoring was utilized.? Sedation & anesthesia were administered by the anesthesia department- please refer to their records for further information.? Tape was placed over the patient's eyes to prevent spillage of secretions.? A laryngeal mask airway was placed by anesthesia.? The vocal cords were observed without gross evidence of nodules, ulcers, or masses.? 5mL of 1% lidocaine were instilled topically to the vocal cords.? The bronchoscope was then passed between the vocal cords and advanced through the trachea without any gross tracheal lesions. The bronchoscope reached the distal trachea where an additional 5mL of 1% lidocaine were instilled topically to the main khanh.? The main khanh was sharp without splaying or evidence of underlying mass. As the patient has had several bronchoscopies in the past, I did not spend a significant amount of time examining all the airways closely - the purpose was to clear secretions and remove mucus plugging. A large mucous plug was noted occluding the right main bronchus.With suctioning, this did include the scope several times. Eventually, the plug was removed and airway was better visualized. There appears to be a moderate degree of dynamic airway collapse.I progressively marched down to the right middle lobe bronchus intermedius and then right middle lobe clearing secretions. I eventually got to the right lower lobe and a bronchoalveolar lavage was obtained from that area. There is a minimal amount of oozing with suction; I elected to leave the patient on his anticoagulation because they felt the risks of stopping anticoagulation was not worth the benefit of preventing mild bleeding. The scope was then withdrawn to the main khanh then advanced To the left main bronchus. Further mucous plugs were suctioned from the left upper and lower lobe. Mucous plug was not as significant as on the right side. I then went through all 5 lobes with further lavage, removing remnant plugs.At the end, there ways appeared relatively clear without excessive mucus noted. The bronchoscope was withdrawn.? Patient tolerated procedure well. Surgeon: Chance Solares Condition: stable Disposition: same day
== END 2023-11-16 13:45 | disposition home or self-care (01) ==
PROVIDERS: PCP Internal Medicine; Visit Provider Internal Medicine
PROC: (CPT 31624; principal; 2023-11-16 12:00)
DX: J47.9 Bronchiectasis, uncomplicated (principal); Z99.81 Dependence on supplemental oxygen; I48.0 Paroxysmal atrial fibrillation; C91.10 Chronic lymphocytic leukemia of B-cell type not having achieved remission; Z87.891 Personal history of nicotine dependence; K21.9 Gastro-esophageal reflux disease without esophagitis; J96.11 Chronic respiratory failure with hypoxia; D83.9 Common variable immunodeficiency, unspecified; Z22.39 Carrier of other specified bacterial diseases; J45.991 Cough variant asthma; N18.9 Chronic kidney disease, unspecified; Z79.60 Long term (current) use of unspecified immunomodulators and immunosuppressants
CPT/HCPCS: 31624; 87015; 87070; 87102; 87116; 87150; 87186; 87205; 87206; 99999; J2704; J3010

== ENCOUNTER 2024-06-11 11:00 | Outpatient (OUT) | payer MEDICARE, OTHER, SELFPAY ==
--- OUTSIDE RECORDS SUMMARY | 2024-06-11 11:23 | XMS_ITS | CCD ---
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 Name Role Phone Rodriguez Quiroz Unavailable Unavailable Sweetie Pop Unavailable Unavailable Blaise Marie Unavailable Unavailable Brenda Oneal Unavailable Unavailable Blaise Marie Unavailable Unavailable Unavailable SAMSA ., RABIA Admitting Unavailable SAMSA ., RABIA Attending Unavailable DR BLAISE MARIE Primary Care Unavailable GILSA ., RABIA Consulting Unavailable SAMSA ., RABIA Admitting Unavailable INDIRA .RABIA Attending Unavailable DR BLAISE MARIE Primary Care Unavailable SAMSA ., RABIA Consulting Unavailable IDALIA BELLA Consulting Unavailable TRINI IIYASMIN Consulting Unavailable Ned, Dr. Blaise Mcmahan Primary Care Unavaila michelle Marie, Dr. Blaise Mcmahan Referring Unavaila MD SWEETIE Cowan Attending Unavailable Yuiva, Dr. Blaise Mcmahan Primary Care Unavaila michelle Marie, Dr. Blaise Mcmahan Referring Unavaila MD SWEETIE Cowan Attending Unavailable Ned, Dr. Blaise Mcmahan Primary Care Unavaila ble Ned, Dr. Blaise Mcmahan Referring Unavaila ble Jose, Dr. Rodriguez Dominguez Attending Unav ailable Ned, Dr. Blaise Mcmahan Referring Unavaila michelle Marie, Dr. Blaise Mcmahan Primary Care Unavaila MD SWEETIE Cowan Attending Unavailable Blaise Marie Primary Care Provider Blaise Marie DO Primary Care Provider Blaise Marie Primary Care Provider BLAISE MARIE Referring Unavailable BLAISE MARIE Primary Care Unavailable YUHAS, BLAISE L Referring Unavailable YUHAS, BLAISE L Primary Care Unavailable YUHAS, BLAISE L Referring Unavailable YUHAS, BLAISE L Primary Care Unavailable Yuhas DOBlaise Primary Care Provider [phone] Sweetie Pop MD Unavailable Yuhas DO, Blaise L Primary Care Provider [phone] SWEETIE POP Referring Unavailable YUHAS, BLAISE L Primary Care Unavailable SWEETIE POP Referring Unavailable YUHAS, BLAISE L Primary Care Unavailable SAMSA, RABIA P Referring Unavailable YUHAS, BLAISE L Primary Care Unavailable ALEXANDER LOZANO Attending Unavailable YUHAS, BLAISE L Referring Unavailable YUHAS, BLAISE L Primary Care Unavailable SWEETIE POP Referring Unavailable YUHAS, BLAISE L Primary Care Unavailable SWEETIE POP Referring Unavailable YUHAS, BLAISE L Primary Care Unavailable YUHAS, BLAISE L Primary Care Unavailable JES BARRAGAN Attending Unavailable YUHAS, BLAISE L Admitting Unavailable JES BARRAGAN Attending Unavailable CAREYHADEJES E Referring Unavailable YUHAS, BLAISE L Primary Care Unavailable YUHAS, BLAISE L Attending Unavailable YUHAS, BLAISE L Referring Unavailable YUHAS, BLAISE L Primary Care Unavailable SWEETIE POP Referring Unavailable YUHAS, BLAISE L Primary Care Unavailable SAMSA, RABIA P Referring Unavailable YUHAS, BLAISE L Primary Care Unavailable SAMSA, RABIA P Referring Unavailable YUHAS, BLAISE L Primary Care Unavailable SAMSA, RABIA P Referring Unavailable YUHAS, BLAISE L Primary Care Unavailable YUHAS, BLAISE BARTOLO Primary Care Unavailable VENNEPUREDDY, DANIS Attending Unavailable YUHAS, BLAISE BARTOLO Primary Care Unavailable VENNEPUREDDY, DANIS Attending Unavailable YUHAS, BLAISE BARTOLO Primary Care Unavailable YUHAS, BLAISE BARTOLO Primary Care Unavailable YUHAS, BLAISE L Referring Unavailable YUHAS, BLAISE L Primary Care Unavailable SHANI BURT Attending Unavailable YUHAS, BLAISE L Referring Unavailable YUHAS, BLAISE L Primary Care Unavailable YUHAS, BLAISE L Attending Unavailable YUHAS, BLAISE L Referring Unavailable YUHAS, BLAISE L Primary Care Unavailable YUHAS, BLAISE L Attending Unavailable YUHAS, BLAISE L Referring Unavailable YUHAS, BLAISE L Primary Care Unavailable YUMIGUELSBLAISE Attending Unavailable YUHASBLAISE Referring Unavailable YUHAS, BLAISE Beck Primary Care Unavailable YUHAS, BLAISE Beck Attending Unavailable YUHAS, BLAISE Beck Referring Unavailable YUHAS, BLAISE Beck Primary Care Unavailable YUHAS, BLAISE Beck Attending Unavailable YUHAS, BLAISE Beck Referring Unavailable YUHAS, BLAISE Beck Primary Care Unavailable YUHAS, BLAISE Beck Attending Unavailable YUHAS, BLAISE Beck Referring Unavailable YUHASBLAISE Primary Care Unavailable SWEETIE POP Attending Unavailable YUHAS, BLAISE MCMAHAN Primary Care Unavailable SWEETIE POP Attending Unavailable YUHASBLAISE Primary Care Unavailable SWEETIE POP Attending Unavailable RAMONAHAS, BLAISE MCMAHAN Primary Care Unavailable RODRIGUEZ QUIROZ Attending Unavailable YUHAS, BLAISE MCMAHAN Primary Care Unavailable SWEETIE POP Attending Unavailable RAMONAHAS, BLAISE MCMAHAN Primary Care Unavailable RODRIGUEZ QUIROZ Attending Unavailable RAMONAHASBLAISE Primary Care Unavailable Yumiguels Blaise BARNES Primary Care Provider Allergies Allergy Classification Reported Allergen(s) Allergy Type Date of Onset Reaction(s) Facility Fish (1 source) fish, unspecified Food Allergy [facility] [place] [facility] DO Work Phone: Penicillins (antibiotic) (1 source) Penicillins; Translations: [Penicillins] Drug Allergy [facility] [place] [facility] DO Work Phone: rivaroxaban (1 source) rivaroxaban; Translations: [Xarelto TABS] Drug Allergy 6 [facility] [place] [facility] DO Work Phone: Sulfonamides (antibiotic) (1 source) Sulfonamides (Antibiotic); Translations: [Sulfa Drugs] Drug Allergy Rash [facility] [place] [facility] DO Work Phone: (20 sources) fish, unspecified [facility]: (20 sources) Penicillins; Translations: [Penicillins] drug allergy 7 [facility] Repository (20 sources) rivaroxaban; Translations: [Xarelto TABS] Drug Allergy 6 Unknown [facility] (20 sources) Sulfonamides (Antibiotic); Translations: [Sulfa Drugs] drug allergy [facility] [place] Work Phone: (6 sources) apixaban; Translations: [APIXABAN] Drug Allergy 6 [facility] Repository (6 sources) edoxaban; Translations: [EDOXABAN] Drug Allergy 6 [facility] (1 source) Fish derivative Drug allergy (disorder) [facility] (1 source) Penicillin Drug Allergy [facility] (1 source) Sulfonamides (Antibiotic) Drug allergy (disorder) [facility] (20 sources) apixaban Drug Allergy 6 Itching [facility] (20 sources) edoxaban Drug Allergy 6 Unknown [facility] (11 sources) Fish; Translations: [FISH CONTAINING PRODUCTS] Drug Allergy 3 Unknown [facility] (7 sources) levoFLOXacin; Translations: [LEVOFLOXACIN] Drug Allergy 3 Unknown [facility] (7 sources) Penicillins Drug Allergy 7 Unknown [facility] (20 sources) Sulfonamides (Antibiotic); Translations: [SULFA (SULFONAMIDE ANTIBIOTICS)] Drug Allergy 7 Itching, Rash [facility] (2 sources) rivaroxaban; Translations: [RIVAROXABAN] Drug Allergy 6 [facility] Repository Medications Current Medications Medication Drug Class(es) Dates Sig (Normalized) Sig (Original) acetaminophen 500 mg oral tablet (20 sources) take 1 tablet by mouth every six hours as needed acetaminophen (Tylenol) 500 mg tablet Take 1 tablet (500 mg) by mouth every 6 hours if needed. Active Comment on above: Take 500 mg by mouth every 6 hours as needed. ampicillin 500 mg oral capsule (1 source) Penicillin-class Antibacterial Start: 02-16-2024 End: 02-21-2024 ampicillin (PRINCIPEN) 500 mg capsule Indications: Urinary tract infection due to Enterococcus Take 1 capsule (500 mg total) by mouth in the morning and 1 capsule (500 mg total) at noon and 1 capsule (500 mg total) in the evening and 1 capsule (500 mg total) before bedtime. Do all this for 5 days. 20 capsule 02/16/2024 02/21/2024 Active atorvastatin 20 mg oral tablet (20 sources) HMG-CoA Reductase Inhibitor Start: 12-15-2023 Atorvastatin Active MG PO December 15, 2023 12:00am Start: 12-07-2018 End: 12-25-2023 take 1 tablet by mouth in the morning atorvastatin (LIPITOR) 20 mg tablet Indications: Mixed hyperlipidemia TAKE 1 TABLET (20 MG TOTAL) BY MOUTH IN THE MORNING 90 tablet 1 12/25/2023 Active Start: 06-16-2018 End: 02-11-2023 atorvastatin (Lipitor) 10 mg tablet Take by mouth. 0 06/16/2018 02/11/2023 Discontinued (Therapy completed) Start: 06-16-2018 Atorvastatin C alcium 10 MG Oral Tablet Quantity: 0 Refills: 0 Ordered: 16-Jun-2018 Sweetie Pop MD Start : 16-Jun-2018 Active Atorvastatin Carmelo cium 20 MG Oral Tablet Quantity: 0 Refills: 0 Ordered: 19-Mar-2022 DO Active Comment on above: Take 20 mg by mouth. cholecalciferol 0.05 mg oral capsule (20 sources) Vitamin D Start: 12-23-2017 cholecalciferol (Vitamin D-3) 50 mcg (2,000 unit) capsule Take 1 capsule (50 mcg) by mouth. 12/23/2017 Active Start: 12-23-2017 cholecalcifero l (Vitamin D-3) 50 mcg (2,000 unit) capsule Take 1 capsule (2,000 Units) by mouth. 0 12/23/2017 Active Start: 12-23-2017 Vitamin D3 50 MCG (2000 UT) Oral Capsule Quantity: 0 Refills: 0 Ordered: 23-Dec-2017 DO Start : 23-Dec-2017 Active Comment on above: Take 2,000 Units by mouth. enteric contrast (will be provided with radiology test) (2 sources) Start: 05-02-2024 enteric contrast (will be provided with radiology test) Indications: CLL (chronic lymphocytic leukemia) (HCC) For CT CHESTABD/PEL W IVCON Routine order Administer, As Directed One Time Only, via Oral, Rectal, both Oral and Rectal, Enteric Tube, Stoma or Indwelling Catheter, Enteric Contrast as designated per enteric contrast guidelines 1 Each 05/02/2024 Active famotidine 40 mg oral tablet (20 sources) Histamine-2 Receptor Antagonist Start: 12-15-2023 Famotidine Active MG PO December 15, 2023 12:00am Start: 04-17-2022 End: 04-22-2024 take 1 tablet by mouth once daily famotidine (PEPCID) 40 mg tablet Indications: Gastro-esophageal reflux disease without esophagitis take 1 tablet by mouth every day 90 tablet 1 10/13/2023 Active Start: 07-26-2016 End: 02-11-2023 take 1 tablet by mouth at bedtime Famotidine 20 MG Oral Tablet TAKE 1 TABLET AT BEDTIME. Quantity: 0 Refills: 0 Ordered: 23-Dec-2017 DO Start : 23-Dec-2017 Active Comment on above: Take 1 tablet by khanh th once daily. finasteride 5 mg oral tablet (20 sources) 5-alpha Reductase Inhibitor Start: 12-15-2023 Finasteride Active MG PO December 15, 2023 12:00am Start: 07-30-2014 End: 07-12-2024 take 1 tablet by mouth in the morning finasteride (PROSCAR) 5 mg tablet Take 1 tablet (5 mg total) by mouth in the morning for 360 days. 90 tablet 3 07/18/2023 07/12/2024 Active Comment on above: Take 1 tablet by khanh th once daily. fluticasone-umeclidin -vilanter (Trelegy Ellipta) 200-62.5-25 mcg blister with device (1 source) take 1 puff(s) by inhalation once daily fluticasone-umeclidi n-vilanter (Trelegy Ellipta) 200-62.5-25 mcg blister with device Inhale 1 puff once daily. Active immun glob G,IgG,/pro/IgA 0-50 (HIZENTRA SUBCUTANEOUS) (4 sources) immun glob G,IgG,/pro/IgA 0-50 (HIZENTRA SUBCUTANEOUS) Inject subcutaneously. Active immun glob G,IgG ,/pro/IgA 0-50 (HIZENTRA SUBCUTANEOUS) Inject subcutaneously. 0 Active Comment on above: Inject subcutaneousl y. IMMUN GLOB G,IGG,/PRO/IGA 0- 50 (HIZENTRA SUBQ) (20 sources) IMMUN GLOB G,IGG ,/PRO/IGA 0-50 (HIZENTRA SUBQ) Inject under the skin every 7 days. Active IMMUN GLOB G,IGG ,/PRO/IGA 0-50 (HIZENTRA SUBQ) Inject under the skin every 7 days. 0 Active 10 ml immunoglobulin g, human 200 mg/ml prefilled syringe (20 sources) Human Immunoglobulin G Start: 08-06-2022 End: 08-06-2023 immune globulin, human, (Hizentra) subcutaneous infusion Inject [...] 0 Refills: 0 Ordered: 29-Apr-2017 DO Active iv contrast (will be provided with radiology test) (2 sources) Start: 05-02-2024 iv contrast (will be provided with radiology test) Indications: CLL (chronic lymphocytic leukemia) (HCC) CT Chest ABD/PEL-Inject, intravenously, once for 1 dose.No IV access, insert saline lock prior to the beginning of sedation, infusion, injection of imaging exam. Discontinue saline lock post exam. If Pt. has a central line or IVAD, may access for administration according to line specific nursing protocol. Once exam is complete flush line and de-access according to line specific nursing protocol in the CT contrast administration guidelines link. 1 Each 05/02/2024 Active levoFLOXacin 500 mg oral tablet (8 sources) Quinolone Antimicrobial Start: 12-17-2023 End: 12-22-2023 take 1 tablet by mouth in the morning levoFLOXacin (LEVAQUIN) 500 mg tablet Take 1 tablet (500 mg total) by mouth in the morning for 5 days. 5 tablet 12/17/2023 12/22/2023 Active Start: 02-13-2020 take 1 tablet by khanh th once daily levoFLOXacin 500 MG Oral Tablet Take 1 tablet daily Quantity: 10 Refills: 1 Ordered: 19-Mar-2022 Rodriguez Quiroz MD Start : 13-Feb-2020 Active CLARIFICATION: PRIOR COMMENT WAS OLD. RENAL FUNCTION IMPROVED AND CAN TAKE 500 MG DAILY. Start: 07-25-2018 take 1 tablet by khanh th once daily levoFLOXacin 500 MG Oral Tablet TAKE 1 TABLET DAILY. Quantity: 10 Refills: 0 Rodriguez Quiroz MD Start : 25-Jul-2018 Active levothyroxine sodium 0.075 mg oral tablet (20 sources) l-Thyroxine Start: 12-15-2023 Levothyroxine Active MCG PO December 15, 2023 12:00am Start: 06-16-2018 End: 12-25-2023 take 1 tablet by mouth once daily levothyroxine (SYNTHROID, LEVOTHROID) 75 MCG tablet Indications: Other specified hypothyroidism take 1 tablet by mouth every day 90 tablet 1 12/25/2023 Active Start: 06-16-2018 Levothyroxine Sodium 75 MCG Oral Tablet Quantity: 0 Refills: 0 Ordered: 16-Jun-2018 Sweetie Pop MD Start : 16-Jun-2018 Active Comment on above: Take 1 tablet by khanh th once daily. Oxygen (20 sources) oxygen Inhale 2 L/min as needed. Active predniSONE 20 mg oral tablet (3 sources) Start: 12-17-2023 End: 12-20-2023 take 1 tablet by mouth in the morning predniSONE (DELTASONE) 20 mg tablet Take 1 tablet (20 mg total) by mouth in the morning for 3 days. 3 tablet 12/17/2023 12/20/2023 Active rivaroxaban 20 mg oral tablet (20 sources) Factor Xa Inhibitor Start: 08-17-2022 End: 08-26-2023 take 1 tablet by mouth in the morning XARELTO 20 mg tablet tablet TAKE 1 TABLET (20 MG TOTAL) BY MOUTH IN THE MORNING 30 tablet 11 08/26/2023 Active Start: 10-20-2021 End: 02-11-2023 rivaroxaban (Xarelto) 15 mg tablet Take 1 tablet (15 mg) by mouth. 0 10/20/2021 02/11/2023 Discontinued (Therapy completed) Comment on above: Take 20 mg by mouth. sodium chloride 30 mg/ml inhalation solution (20 sources) Start: 12-15-2023 Sodium Chloride Active ML INHALATION December 15, 2023 12:00am Start: 03-20-2023 End: 07-19-2023 sodium chloride 0.9 % nebuli zer solution Inhale 3 mL by nebulization in the morning and 3 mL at noon and 3 mL in the evening and 3 mL before bedtime. 90 mL 12 03/20/2023 07/19/2023 Discontinued (Therapy completed) Start: 01-04-2023 sodium chlorid e 3 % nebulizer solution 01/04/2023 Active Start: 05-11-2022 sodium chlorid e 3 % nebulizer solution Take by nebulization if needed for cough. 05/12/2023 Active Start: 05-11-2022 End: 06-14-2023 take 1 dose by mouth three times daily sodium chloride 0.9 % nebulizer solution INHALE 1 VIAL BY MOUTH 3 TIMES DAILY 0 05/11/2022 06/14/2023 Discontinued (Med List Cleanup) Comment on above: INHALE 1 VIAL BY KHANH 3 TIMES DAILY TRELEGY ELLIPTA 200-62.5-25 mcg blister with device (1 source) Start: 04-25-2024 take 1 puff(s) by inhalation in the morning TRELEGY ELLIPTA 200-62.5-25 mcg blister with device Inhale 1 puff in the morning. 04/25/2024 Active TRELEGY ELLIPTA 200-62.5-25 mcg inhalation powder (2 sources) Start: 04-25-2024 take 1 puff(s) by inhalation once daily TRELEGY ELLIPTA 200-62.5-25 mcg inhalation powder Inhale 1 Puff as instructed once daily. 04/25/2024 Active Umeclidinium-Vilante rol (20 sources) Anticholinergic, beta2-Adrenergic Agonist Start: 12-15-2023 Umeclidinium-Vilant mireya (Anoro Ellipta) 62.5-25 mcg/actuation blister with device Active INHALATION December 15, 2023 12:00am Start: 05-24-2023 End: 05-03-2024 take 1 puff(s) by inhalation in the morning umeclidinium-vilanteroL (ANORO ELLIPTA) 62.5-25 mcg/actuation blister with device Indications: Chronic obstructive pulmonary disease, unspecified [place] type [place]HALE 1 PUFF IN THE MORNING 90 each 1 11/21/2023 Active Start: 05-24-2023 End: 05-02-2024 take 1 puff(s) by inhalation every other day ANORO ELLIPTA 62.5-25 mcg/actuation inhaler Inhale 1 Puff as instructed every other day. 05/24/2023 05/02/2024 Discontinued Start: 05-24-2023 take 1 puff(s) by inhalation once daily Anoro Ellipta 62.5-25 mcg/actuation blister with device Inhale 1 puff once daily. 05/24/2023 Active Completed/Discontinued Medications Medication Drug Class(es) [...] day. 0 12/23/2017 02/11/2023 Discontinued (Therapy completed) [id number] 0.3 ml EPINEPHrine 1 mg/ml auto-injector (6 sources) alpha-Adrenergic Agonist, beta-Adrenergic Agonist, Catecholamine Start: 11-13-2014 EpiPen 2-Mc 0.3 MG/0.3ML Injection Solution Auto-injector Quantity: 2 Refills: 0 Start : 13-Nov-2014 Active 30 actuat fluticasone furoate 0.2 mg/actuat dry powder inhaler (16 sources) Corticosteroid Start: 12-17-2023 End: 05-03-2024 take 1 puff(s) by inhalation in the morning fluticasone furoate (ARNUITY ELLIPTA) 200 mcg/actuation blister with device Inhale 1 puff in the morning. 60 each 12/17/2023 05/03/2024 Discontinued (Therapy completed) Start: 12-17-2023 End: 05-02-2024 take 1 puff(s) by inhalation every other day fluticasone furoate (ARNUITY ELLIPTA) 200 mcg/actuation inhaler Inhale 1 Puff as instructed every other day. 12/17/2023 05/02/2024 Discontinued 30 actuat fluticasone furoate 0.2 mg/actuat / vilanterol 0.025 mg/actuat dry powder inhaler (20 sources) Corticosteroid, beta2-Adrenergic Agonist Start: 03-26-2023 End: 05-24-2023 take 1 puff(s) by inhalation in the morning fluticasone furoate-vilanteroL (BREO ELLIPTA) 200-25 mcg/dose blister with device Inhale 1 puff in the morning. 180 each 1 03/26/2023 05/24/2023 Discontinued (Cost of medication) Start: 01-24-2023 End: 02-01-2024 take 1 puff(s) by inhalation once daily fluticasone-vilanterol (BREO ELLIPTA) 200-25 mcg/dose inhaler INHALE 1 PUFF INTO THE LUNGS EVERY DAY 01/24/2023 02/01/2024 Discontinued (Discontinued by Patient) Start: 06-07-2017 End: 06-14-2023 take 1 puff(s) by inhalation once daily fluticasone furoate-vilanteroL (Breo Ellipta) 200-25 mcg/dose inhaler Inhale 1 puff once daily. 0 06/07/2017 06/14/2023 Discontinued (Therapy completed) Start: 06-07-2017 Breo Ellipta 2 00-25 MCG/INH AEPB Quantity: 0 Refills: 0 Ordered: 07-Jun-2017 DO Start : 07-Jun-2017 Active Comment on above: INHALE 1 PUFF INTO T HE LUNGS EVERY DAY Nebulizer/Tubing/Mouthp iece KIT (6 sources) Start: 09-28-2018 Nebulizer/Tubing/Mouthpi jose elias KIT USE DIRECTED. Quantity: 1 Refills: 6 Sweetie Pop MD Start : 28-Sep-2018 Active Start: 07-15-2016 Nebulizer/Tubi ng/Mouthpiece KIT USE DIRECTED. Quantity: 1 Refills: 0 Sweetie Pop MD Start : 15-Jul-2016 Active tobramycin 60 mg/ml inhalation solution (20 sources) Aminoglycoside Antibacterial Start: 12-17-2020 Tobramycin 300 MG/5M L Inhalation Nebulization Solution INHALE THE CONTENTS OF 1 AMPULE VIA NEBULIZER DAILY FOR 14 DAYS ON, THEN 14 DAYS OFF - REFILLS CALL: [phone] Quantity: 16 Refills: 12 Ordered: 19-Mar-2022 Rodriguez Quiroz MD Start : 17-Dec-2020 Active YES, OK TO DISPENSE 16 AMPULES Start: 06-02-2015 Tobramycin 300 MG/5ML Inhalation Nebulization Solution INHALE THE CONTENTS OF 1 AMPULE VIA NEBULIZER DAILY FOR 14 DAYS ON, THEN 14 DAYS OFF - REFILLS CALL: [phone] Quantity: 14 Refills: 6 Ordered: 15-Apr-2020 Rodriguez [...] Quantity: 1 Refills: 3 Ordered: 12-Nov-2022 Sweetie Pop MD Start : 12-Nov-2022 Active Start: 04-01-2021 Triamcinolone Acetonide 0.1 % External Cream APPLY THIN COAT TO AFFECTED AREA TWICE A DAY Quantity: 30 Refills: 0 Ordered: 01-Apr-2021 DO Start : 01-Apr-2021 Active Problems Active Problems Problem Classification Problem Date Documented Date Episodic/Chronic Acute bronchitis (1 source) Acute bronchitis; Translations: [Bronchitis, acute] Episodic Asthma (12 sources) Asthma; Translations: [Asthma, unspecified type, unspecified] Onset: 3 Chronic Bacterial infection; unspecified site (10 sources) Pneumococcal infectious disease; Translations: [Bacterial infection due to Serratia] Onset: 5 05-11-2024 Episodic Cancer; other and unspecified primary (20 sources) H/O: malignant neoplasm; Translations: [Personal history of unspecified malignant neoplasm] Episodic Cardiac dysrhythmias (20 sources) Unspecified atrial fibrillation; Translations: [Paroxysmal atrial [...] 3 02-02-2023 Chronic Disorders of lipid metabolism (20 sources) Hyperlipidemia; Translations: [Hyperlipidemia, unspecified] Onset: 1 02-10-2023 Chronic Esophageal disorders (20 sources) Gastro-esophageal reflux disease without esophagitis; Translations: [Gastric reflux] Onset: 7 02-10-2023 Chronic Essential hypertension (1 source) Hypertensive disorder Onset: 4 Chronic Genitourinary symptoms and ill-defined conditions (3 sources) Unspecified symptoms and signs involving the genitourinary system; Translations: [Lower urinary tract symptoms] Onset: 4 02-14-2024 Episodic Hyperplasia of prostate (20 sources) Benign prostatic hyperplasia without lower urinary [...] variable immunodeficiency] Onset: 0 02-02-2023 Chronic Leukemias (20 sources) Chronic lymphoid leukemia, disease; 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] Onset: 3 02-02-2023 Chronic Neoplasms of unspecified nature or uncertain behavior (5 sources) Chronic myeloproliferative disorder (clinical); Translations: [Chronic myeloproliferative disease] Onset: 4 02-01-2024 Episodic Osteoarthritis (20 sources) Arthritis; Translations: [Unspecified osteoarthritis, unspecified site] Onset: 7 02-10-2023 Chronic Other aftercare (1 source) 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; Translations: [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] Onset: 3 Episodic Other aftercare (1 source) Other group home (current) drug therapy; Translations: [OTH HALF-WAY CURRENT DRUG THERAPY] Onset: 3 Episodic Other connective tissue disease (20 sources) H/O: arthritis; Translations: [Personal history of arthritis] Episodic Other gastrointestinal disorders (5 sources) H/O: gastrointestinal disease; Translations: [History of esophageal reflux] Episodic Other gastrointestinal disorders (20 sources) Personal history of other diseases of the digestive system; Translations: [History of gastroesophageal reflux disease] Episodic Other hematologic conditions (2 sources) Disorder of hematopoietic structure; Translations: [Other specified diseases of blood and blood-forming organs] 02-01-2024 Chronic Other hematologic conditions (1 source) Other specified diseases of blood and blood-forming organs; Translations: [Other specified diseases of blood and blood-forming organs] Onset: 4 Chronic Other lower respiratory disease (6 sources) Cough; [...] Translations: [PLEURAL EFFUSION NEC] Onset: 3 Episodic Pneumonia (except that caused by tuberculosis or sexually transmitted disease) (20 sources) Pneumonia; Translations: [Community acquired pneumonia] Onset: 7 02-10-2023 Episodic Pneumonia (except that caused by tuberculosis or sexually transmitted disease) (1 source) Pneumonia (except that caused by tuberculosis or sexually transmitted disease); Translations: [Pneumonia due to other gram-negative bacteria] Onset: 4 Pulmonary heart disease (6 sources) Pulmonary hypertension, unspecified; Translations: [Pulmonary hypertension] Onset: 4 05-03-2024 Chronic Residual codes; unclassified (20 sources) Obstructive sleep apnea syndrome; Translations: [Obstructive sleep apnea (adult) (pediatric)] Onset: 7 02-10-2023 Chronic Screening and history of mental health and substance abuse codes (20 sources) Ex-smoker; Translations: [Personal history of tobacco use] Onset: 3 Episodic Thyroid disorders (20 sources) Secondary hypothyroidism; Translations: [Other specified hypothyroidism] Onset: 9 02-10-2023 Chronic Unclassified (1 source) CONTACT W/AND (SUSP) EXPOS COVID-19; Translations: [CONTACT W/AND (SUSP) EXPOS COVID-19] Onset: 3 Unclassified (1 source) Low BP Onset: 4 Unclassified (1 source) Blood Pressure Check Onset: 4 Unclassified (1 source) medicare annual wellness Onset: 4 Past or Other Problems Problem Classification Problem Date Documented Date Episodic/Chronic Cardiac dysrhythmias (20 sources) Palpitations; Translations: [Palpitations] Onset: 08-22-2018 Resolved: 12-09-2021 12-09-2021 Episodic Chronic obstructive pulmonary disease and bronchiectasis (20 sources) Haemophilus influenzae laryngotracheobronchi tis; Translations: [Bronchitis, not specified as acute or chronic] Onset: 03-20-2023 03-20-2023 Episodic Chronic obstructive pulmonary disease and bronchiectasis (6 sources) Chronic bronchiolitis; 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] Conditions associated with dizziness or vertigo (3 sources) Dizziness and giddiness; Translations: [Postural dizziness] Onset: 12-29-2023 12-29-2023 Episodic Fluid and electrolyte disorders (20 sources) Hypo-osmolality and hyponatremia; Translations: [Acute hyponatremia] Onset: 03-18-2023 03-18-2023 Episodic Immunizations and screening for infectious disease (20 sources) Infectious disease carrier; Translations: [Carrier or suspected carrier of other specified bacterial diseases] Onset: 02-10-2023 02-15-2023 Episodic Malaise and fatigue (20 sources) Fatigue; Translations: [Other fatigue] Onset: 04-02-2015 Resolved: 12-09-2021 12-09-2021 Episodic Mood disorders (20 sources) Mood disorders Onset: 12-29-2023 Resolved: 02-01-2024 02-01-2024 Other aftercare (20 sources) Drug therapy finding; Translations: [Other group home (current) drug therapy] Onset: 04-19-2018 Resolved: 06-01-2019 06-01-2019 Episodic Other circulatory disease (1 source) Hypotension, unspecified; Translations: [Hypotension, unspecified] Onset: 12-15-2023 Episodic Other circulatory disease (1 source) Low blood pressure Onset: 12-15-2023 Episodic Other lower respiratory disease (20 sources) Hypoxemia; Translations: [Hypoxemia] Onset: 03-18-2023 03-18-2023 Episodic Other lower respiratory disease (20 sources) Dyspnea; Translations: [Dyspnea, unspecified] Onset: 08-22-2018 [...] cavity and/or nasal sinus; Translations: [Nasal polyp] Poisoning by other medications and drugs (20 sources) Adverse reaction to drug; Translations: [Unspecified drug or medicinal substance causing adverse effects in therapeutic use] Onset: 02-10-2023 02-10-2023 Episodic Spondylosis; intervertebral disc disorders; other back problems (20 sources) Spinal stenosis; Translations: [Spinal stenosis, site unspecified] Onset: 11-04-2016 02-10-2023 Episodic Unclassified (6 sources) Patient encounter status; Translations: [Encounter for administration of vaccine] Unclassified (1 source) Onset: 05-11-2024 05-11-2024 Urinary tract infections (1 source) Urinary tract infection caused by Enterococcus; Translations: [Urinary tract infection, site not specified] 02-16-2024 Episodic NEGATED: Highlighted row has not occurred!Residual codes; unclassified (20 sources) Disease Episodic Results Test Name Value Interpretation Reference Range [facility] [place] [facility] CNPN Telephone ([facility]) ----- RASHAD MCNAIR ([id number]) 1940 M Date Time Provider Department 05/03/24 DANIS SELF During your visit today, we recorded the following information about you: Danis Self MD 05/03/2024 8:32 AM Signed Please tell him to take OTC iron and vit C supplements, 1 tab daily for iron def anemia. Thank you. Ros Obrien, KING 05/03/2024 9:03 AM Signed VM left on Sandro Mcnair CRISTIANE when dialed provided cell phone number. Detailed message to begin OTC meds, as recommended. Encouraged to call back with receipt of VM. KING Gaona Natalie, KING 05/03/2024 11:05 AM Signed Attempted to notify pt at home number, again VM deletes attempt. Will await call back from initial contact VM left. KING Gaona Natalie, KING 05/03/2024 11:32 AM Signed Pt notified and agreeable to obtain and begin OTC meds, as recommended. Pt denies questions, needs or concerns at this time. Appt verified for f/u Ros Obrien RN Allergies As of Date: 05/03/2024 Noted Allergy Reaction APIXABAN 08/08/2015 9 - Itching Comments: Other reaction(s): Rash, itching Other reaction(s): Rash, itching EDOXABAN 05/20/2015 16 - Unknown Comments: Other reaction(s): Rash, itching Other reaction(s): Rash, itching FISH CONTAINING PRODUCTS 08/23/2022 16 - Unknown LEVOFLOXACIN 08/23/2022 16 - Unknown PENICILLINS 04/19/2016 16 - Unknown RIVAROXABAN 08/23/2022 16 - Unknown SULFA (SULFONAMIDE ANTIBIOTICS) 04/19/2016 9 - Itching Date Reviewed: 05/02/2024 Reviewed by: Claudine Meadows MA - Fully Assessed Reason for Visit: Results [95] OTC Iron/Vit C recommendation [Other] Prescriptions as of 05/03/2024 - TRELEGY ELLIPTA 200-62.5-25 mcg inhalation powder Inhale 1 Puff as instructed once daily. - iv contrast (will be provided with radiology test) CT Chest ABD/PEL-Inject, intravenously, once for 1 dose.No IV access, insert saline lock prior to the beginning of sedation, infusion, injection of imaging exam. Discontinue saline lock post exam. If Pt. has a central line or IVAD, may access for administration according to line specific nursing protocol. Once exam is complete flush line and de-access according to line specific nursing protocol in the CT contrast administration guidelines link. - enteric contrast (will be provided with radiology test) For CT CHESTABD/PEL W IVCON Routine order Administer, As Directed One Time Only, via Oral, Rectal, both Oral and Rectal, Enteric Tube, Stoma or Indwelling Catheter, Enteric Contrast as designated per enteric contrast guidelines - finasteride (PROSCAR) 5 mg tablet Take 5 mg by mouth once daily. - immun glob G,IgG,/pro/IgA 0-50 (HIZENTRA SUBCUTANEOUS) Inject subcutaneously. - acetaminophen (TYLENOL) 500 mg tablet Take 500 mg by mouth every 6 hours as needed. - atorvastatin (LIPITOR) 20 mg tablet Take 20 mg by mouth. - Cholecalciferol, Vitamin D3, 50 mcg (2,000 unit) cap Take 2,000 Units by mouth. - famotidine (PEPCID) 40 mg tablet Take 1 tablet by mouth once daily. - levothyroxine (SYNTHROID) 75 mcg tablet Take 1 tablet by mouth once daily. - rivaroxaban (XARELTO) 20 mg tablet Take 20 mg by mouth. - sodium chloride (NEBUSAL) 3 % nebulizer solution Use 3 mL via nebulizer as needed. 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 Encounter Status:Closed by ROS OBRIEN on 05/03/24 Normal [facility] CBC W Auto Differential pane l (Bld)on 05-02-2024 Basophils (Bld) [#/Vol] 0.00 10*3/uL Normal <0.11 [facility] Comment on above: Order Comment: Speci men Type: BLOOD SPECIMEN Ordering Facility: [facility] Address: [address] [place] [address] Performed By: #### 2 432-8, 2-0 #### [facility] CLIA [id number] [address] [place] [address] 12591 Basophils/100 WBC (Bld) 0.0 % Normal [facility] Comment on above: Order Comment: Speci men Type: BLOOD SPECIMEN Ordering Facility: [facility] Address: [address] [id number] Performed By: #### 2 4322-8, 2532-0 #### [facility] CLIA [id number] [address] [place] [address] 86168 Dacrocytes LM Ql (Bld) Few Normal [facility] Comment on above: Order Comment: Speci men Type: BLOOD SPECIMEN Ordering Facility: [facility] Address: [address] [place] [address] Performed By: #### 2 4322-11, 2531-0 #### [facility] CLIA [id number] [address] [place] [address] 93885 Differential cell count method Nom (Bld) Manual Normal [facility] Comment on above: Order Comment: Speci men Type: BLOOD SPECIMEN Ordering Facility: [facility] Address: [address] [place] [address] Performed By: #### 2 4322-11, 2-0 #### [facility] CLIA [id number] [address] [place] [address] 10334 Eosinophils (Bld) [#/Vol] 0.00 10*3/uL Normal <0.46 [facility] Comment on above: Order Comment: Speci men Type: BLOOD SPECIMEN Ordering Facility: [facility] Address: [facility] [place] [id number] Performed By: #### 2 8, 2532-0 #### [facility] CLIA [id number] [address] [place] [address] 26196 Eosinophils/100 WBC (Bld) 0.0 % Normal [facility] Comment on above: Order Comment: Speci men Type: BLOOD SPECIMEN Ordering Facility: [facility] Address: [address] [place] [address] Performed By: #### 2 4323-8, 2-0 #### [facility] CLIA [id number] [address] [place] [address] 75475 Erythrocyte distribution width (RBC) [Ratio] 14.2 % Normal 11.5-15.0 [facility] Comment on above: Order Comment: Speci men Type: BLOOD SPECIMEN Ordering Facility: [facility] Address: [address] [place] [address] Performed By: #### 2 432-8, 2-0 #### [facility] CLIA [id number] [address] [place] [address] 76811 Hematocrit (Bld) [Volume fraction] 34.8 % Low 39.0-51.0 [facility] Comment on above: Order Comment: Speci men Type: BLOOD SPECIMEN Ordering Facility: [facility] Address: [address] [place] [address] Performed By: #### 2 432-8, 2-0 #### [facility] CLIA [id number] [address] [place] [address] 47591 Hemoglobin (Bld) [Mass/Vol] 11.2 g/dL Low 13.0-17.0 [facility] Comment on above: Order Comment: Speci men Type: BLOOD SPECIMEN Ordering Facility: [facility] Address: [address] [place] [address] Performed By: #### 2 432-8, 2532-0 #### [facility] CLIA [id number] [address] [place] [address] 77061 Lymphocytes (Bld) [#/Vol] 32.90 10*3/uL High 1.00-4.00 [facility] Comment on above: Order Comment: Speci men Type: BLOOD SPECIMEN Ordering Facility: [facility] Address: [address] [place] [address] Performed By: #### 2 4323-8, 2532-0 #### [facility] CLIA [id number] [address] [place] [address] 74360 Lymphocytes/100 WBC (Bld) 58.0 % Normal [facility] Comment on above: Order Comment: Speci men Type: BLOOD SPECIMEN Ordering Facility: [facility] Address: [address] [place] [address] Performed By: #### 2 4328, 2531-0 #### [facility] CLIA [id number] [address] [place] [address] 17077 MCH (RBC) [Entitic mass] 29.2 pg Normal 26.0-34.0 [facility] Comment on above: Order Comment: Speci men Type: BLOOD SPECIMEN Ordering Facility: [facility] Address: [address] [place] [address] Performed By: #### 2 4328, 2531-0 #### [facility] CLIA [id number] [address] [place] [address] 35245 MCHC (RBC) [Mass/Vol] 32.2 g/dL Normal 30.5-36.0 [facility] Comment on above: Order Comment: Speci men Type: BLOOD SPECIMEN Ordering Facility: [facility] Address: [address] [place] [address] Performed By: #### 2 4328, 2531-0 #### [facility] CLIA [id number] [address] [place] [address] 37985 MCV (RBC) [Entitic vol] 90.6 fL Normal 80.0-100.0 [facility] Comment on above: Order Comment: Speci men Type: BLOOD SPECIMEN Ordering Facility: [facility] Address: [address] [place] [address] Performed By: #### 2 4328, 2532-0 #### [facility] CLIA [id number] [address] [place] [address] 40617 Monocytes (Bld) [#/Vol] 0.00 10*3/uL Normal <0.87 [facility] Comment on above: Order Comment: Speci men Type: BLOOD SPECIMEN Ordering Facility: [facility] Address: [address] [place] [address] Performed By: #### 2 4323-8, 2531-0 #### [facility] CLIA [id number] [address] [place] [address] 87770 Monocytes/100 WBC (Bld) 0.0 % Normal [facility] Comment on above: Order Comment: Speci men Type: BLOOD SPECIMEN Ordering Facility: [facility] Address: [address] [place] [address] Performed By: #### 2 4328, 2531-0 #### [facility] CLIA [id number] [address] [place] [address] 65086 Neutrophils (Bld) [#/Vol] 23.82 10*3/uL High 1.45-7.50 [facility] Comment on above: Order Comment: Speci men Type: BLOOD SPECIMEN Ordering Facility: [facility] Address: [address] [place] [address] Performed By: #### 2 4328, 2531-0 #### [facility] CLIA [id number] [address] [place] [address] 70161 Neutrophils/100 WBC (Bld) 42.0 % Normal [facility] Comment on above: Order Comment: Speci men Type: BLOOD SPECIMEN Ordering Facility: [facility] Address: [address] [place] [address] Performed By: #### 2 4328, 2-0 #### [facility] CLIA [id number] [address] [place] [address] 80069 Nucleated RBC (Bld) [#/Vol] 10*3/uL Normal <0.01 [facility] Comment on above: Order Comment: Speci men Type: BLOOD SPECIMEN Ordering Facility: [facility] Address: [address] [place] [address] Performed By: #### 2 432-8, 2-0 #### [facility] CLIA [id number] [address] [place] [address] Nucleated RBC/100 WBC (Bld) [Ratio] 0.0 /100 WBC Normal [facility] Comment on above: Order Comment: Speci men Type: BLOOD SPECIMEN Ordering Facility: [facility] Address: [address] [place] [address] Performed By: #### 2 4328, 2531-0 #### [facility] CLIA [id number] [address] [place] [address] 75064 Ovalocytes LM Ql (Bld) Few Normal [facility] Comment on above: Order Comment: Speci men Type: BLOOD SPECIMEN Ordering Facility: [facility] Address: [address] [place] [address] Performed By: #### 2 4328, 2531-0 #### [facility] CLIA [id number] [address] [place] [address] 69214 Platelet mean volume (Bld) [Entitic vol] 10.3 fL Normal 9.0-12.7 [facility] Comment on above: Order Comment: Speci men Type: BLOOD SPECIMEN Ordering Facility: [facility] Address: [address] [place] [address] Performed By: #### 2 4328, 2531-0 #### [facility] CLIA [id number] [address] [place] [address] 76579 Platelets (Bld) [#/Vol] 350 10*3/uL Normal 150-400 [facility] Comment on above: Order Comment: Speci men Type: BLOOD SPECIMEN Ordering Facility: [facility] Address: [address] [place] [address] Result Comment: Resu lts checked and verified.No clot detected. Performed By: #### 2 4323-8, 2532-0 #### [facility] CLIA [id number] [address] [place] [address] 55179 Platelets Estimate (Bld) [#/Vol] Adequate Normal [facility] Comment on above: Order Comment: Speci men Type: BLOOD SPECIMEN Ordering Facility: [facility] Address: [address] [place] [address] Performed By: #### 2 4323-8, 2-0 #### [facility] CLIA [id number] [address] [place] [address] 67587 Polychromasia LM Ql (Bld) Slight Normal [facility] Comment on above: Order Comment: Speci men Type: BLOOD SPECIMEN Ordering Facility: [facility] Address: [address] [phone] Performed By: #### 2 432-8, 2-0 #### [facility] CLIA [id number] [address] [place] [address] 27981 RBC (Bld) [#/Vol] 3.84 10*6/uL Low 4.20-6.00 [facility] Comment on above: Order Comment: Speci men Type: BLOOD SPECIMEN Ordering Facility: [facility] Address: [address] [phone] Performed By: #### 2 4328, 2531-0 #### [facility] CLIA [id number] [address] [place] [address] 00709 RBC FRAGMENTS Few Abnormal None Seen [facility] Comment on above: Order Comment: Speci men Type: BLOOD SPECIMEN Ordering Facility: [facility] Address: [address] [place] [address] Performed By: #### 2 4328, 2532-0 #### [facility] CLIA [id number] [address] [place] [address] 77539 RED CELL MORPH Reviewed: see result s of individual morphologies Normal [facility] Comment on above: Order Comment: Speci men Type: BLOOD SPECIMEN Ordering Facility: [facility] Address: [address] [place] [address] Performed By: #### 2 4323-8, 2532-0 #### [facility] CLIA [id number] [address] [place] [address] WBC (Bld) [#/Vol] 56.72 10*3/uL High 3.70-11.00 [facility] Comment on above: Order Comment: Speci men Type: BLOOD SPECIMEN Ordering Facility: [facility] Address: [address] [place] [address] Result Comment: Resu lts checked and verified.No clot detected. Performed By: #### 2 4323-8, 2532-0 #### [facility] CLIA [id number] [address] [place] [address] CNOVSPon 05-02-2024 CNOVSP Visit ([place]) Office ([place]) ----- RASHAD MCNAIR ([id number]) 1940 M Date Time Provider Department 05/02/24 1:30 PM DANIS SELF During your visit today, we recorded the following information about you: Temperature Pulse Respiration Blood pressure 97.5 degrees 85/minute 18/minute 121/69 Weight Height 65.5 kg 1.803 m Danis Self MD 05/03/2024 10:54 AM Addendum PATIENT NAME: Rashad Mcnair CLINIC NO.: [id number] ATTENDING PHYSICIAN: Danis Self MD DATE OF SERVICE: 05/02/[address] Blaise Marie, thank you for referring Mr Rashad Mcnair for an opinion regarding Possible CLL. Some of the elements of this note have been copied from my previous progress note dated 02/01/24 . All the information has been reviewed carefully. CHIEF COMPLAINT: I have blood abnormalities HPI: Rashad Mcnair is a 82 year old year old [...] the patient mostly has neutrophilia and lymphocytosis. Visit 02/01/24: - Doing well - On 2 lit O2. On it for 1 year. - Denies any B symptoms. - Does IVIG injections every week at home. Being monitored by academic registrar at . 05/02/24: - Doing well - Remains on 2 lit O2. - No smoking - Occasional alcohol. Current Outpatient Medications Medication Sig fluticasone furoate (ARNUITY ELLIPTA) 200 mcg/actuation inhaler Inhale 1 Puff as instructed every other day. finasteride (PROSCAR) 5 mg tablet Take 5 mg by mouth once daily. ANORO ELLIPTA 62.5-25 mcg/actuation inhaler Inhale 1 Puff as instructed every other day. immun glob G,IgG,/pro/IgA 0-50 (HIZENTRA SUBCUTANEOUS) Inject subcutaneously. acetaminophen (TYLENOL) 500 mg tablet Take 500 mg by mouth every 6 hours as needed. atorvastatin (LIPITOR) 20 mg tablet Take 20 mg by mouth. Cholecalciferol, Vitamin D3, 50 mcg (2,000 unit) cap Take 2,000 Units by mouth. famotidine (PEPCID) 40 mg tablet Take 1 tablet by mouth once daily. levothyroxine (SYNTHROID) 75 mcg tablet Take 1 tablet by mouth once daily. rivaroxaban (XARELTO) 20 mg tablet Take 20 mg by mouth. sodium chloride (NEBUSAL) 3 % nebulizer solution Use 3 mL via nebulizer as needed. No current facility-administered medications for this visit. ALLERGIES Allergen Reactions Apixaban Itching Other reaction(s): Rash, itching Other reaction(s): Rash, itching Edoxaban Unknown Other reaction(s): Rash, itching Other reaction(s): Rash, itching Fish Containing Pro* Unknown Levofloxacin Unknown Penicillins Unknown Rivaroxaban Unknown Sulfa (Sulfonamide * Itching PAST MEDICAL HISTORY Diagnosis Date Bronchiectasis (HCC) Chronic renal impairment Mixed hyperlipidemia Secondary hypothyroidism No past surgical history on file. No family history on file. Social History Tobacco Use Smoking status: Former [...] tingling of hands/feet. No weakness. PHYSICAL EXAMINATION: There were no vitals taken for this visit. Wt 68.8 kg (151 lb 9.6 oz) BMI 21.14 kg/m2 Last 3 Encounter Wt Readings: Date: Wt: 02/02/2023 68 (more content not included)... Normal [facility] CHRISTIANA DIRECTon 05-02-2024 DAGT, POLYSPECIFIC AHG Negative Normal [facility] Comment on above: Order Comment: Kevin duvall Type: BLOOD SPECIMEN Ordering Facility: [facility] Address: [address] [place] [address] Performed By: #### 2 4323-8, 2532-0 #### [facility] CLIA [id number] [address] [place] [address] 30199 Comprehensive metabolic 2000 panelon 05-02-2024 Albumin [Mass/Vol] 3.9 g/dL Normal 3.9-4.9 [facility] Comment on above: Order Comment: Kevin duvall Type: BLOOD SPECIMEN Ordering Facility: [facility] Address: [address] [place] [address] Performed By: #### 2 4323-8, 2531-0 #### [facility] CLIA [id number] [address] [place] [address] ALP [Catalytic activity/Vol] 117 U/L High 38-113 [facility] Comment on above: Order Comment: Speci men Type: BLOOD SPECIMEN Ordering Facility: [facility] Address: [address] [id number] Performed By: #### 2 432-8, 2531-0 #### [facility] CLIA [id number] [address] [place] [address] ALT [Catalytic activity/Vol] 16 U/L Normal 10-54 [facility] Comment on above: Order Comment: Speci men Type: BLOOD SPECIMEN Ordering Facility: [facility] Address: [address] [place] [address] Performed By: #### 2 4328, 2531-0 #### [facility] CLIA [id number] [address] [place] [address]3753 Anion gap [Moles/Vol] 10 mmol/L Normal 8-15 [facility] Comment on above: Order Comment: Speci men Type: BLOOD SPECIMEN Ordering Facility: [facility] Address: [address] [id number] Performed By: #### 2 4328, 2531-0 #### [facility] CLIA [id number] [address] [place] [address] 60090 AST [Catalytic activity/Vol] 17 U/L Normal 14-40 [facility] Comment on above: Order Comment: Speci men Type: BLOOD SPECIMEN Ordering Facility: [facility] Address: [address] [id number] Performed By: #### 2 4323-8, 2531-0 #### [facility] CLIA [id number] [address] [place] [address] Bilirubin [Mass/Vol] 0.5 mg/dL Normal 0.2-1.3 [facility] Comment on above: Order Comment: Speci men Type: BLOOD SPECIMEN Ordering Facility: [facility] Address: [address] [place] [address] Performed By: #### 2 4323-8, 2531-0 #### [facility] CLIA [id number] [address] [place] [address] Calcium [Mass/Vol] 9.4 mg/dL Normal 8.5-10.2 [facility] Comment on above: Order Comment: Speci men Type: BLOOD SPECIMEN Ordering Facility: [facility] Address: [address] [place] [address] Performed By: #### 2 432-8, 2531-0 #### [facility] CLIA [id number] [address] [place] [address]203 Chloride [Moles/Vol] 92 mmol/L Low 98-107 [facility] Comment on above: Order Comment: Speci men Type: BLOOD SPECIMEN Ordering Facility: [facility] Address: [address] [place] [address] Performed By: #### 2 4328, 2531-0 #### [facility] CLIA [id number] [address] [place] [address] 39881 CO2 [Moles/Vol] 28 mmol/L Normal 22-30 [facility] Comment on above: Order Comment: Speci men Type: BLOOD SPECIMEN Ordering Facility: [facility] Address: [address] [place] [address] Performed By: #### 2 432-8, 2531-0 #### [facility] CLIA [id number] [address] [place] [place] [address] Creatinine [Mass/Vol] 1.09 mg/dL Normal 0.73-1.22 [facility] Comment on above: Order Comment: Speci men Type: BLOOD SPECIMEN Ordering Facility: [facility] Address: [address] [place] [address] Performed By: #### 2 432-8, 2532-0 #### [facility] CLIA [id number] [address] [place] [address]756 Creatinine and Glomerular filtration rate.predicted panel (S/P/Bld) 67 mL/min/1.73m??? Normal >=60 [facility] Comment on above: Order Comment: Specmalik duvall Type: BLOOD SPECIMEN Ordering Facility: [facility] Address: [address] [place] [address] Result Comment: Doug mated Glomerular Filtration Rate [...] Performed By: #### 2 4323-8, 2531-0 #### [facility] CLIA [id number] [address] [place] [address] Glucose [Mass/Vol] 115 mg/dL High 74-99 [facility] Comment on above: Order Comment: Kevin duvall Type: BLOOD SPECIMEN Ordering Facility: [facility] Address: [address] [place] [address] Result Comment: The [place] Diabetes Association (ADA) provides guidance for cutoff [...] Standards of Medical Care in Diabetes 2016, [place] [employer]. Diabetes Care. 2016.39(Suppl 1). Performed By: #### 2 4323-8, 2531-0 #### [facility] CLIA [id number] [address] [place] [address] Potassium [Moles/Vol] 3.8 mmol/L Normal 3.7-5.1 [facility] Comment on above: Order Comment: Speci men Type: BLOOD SPECIMEN Ordering Facility: [facility] Address: [address] [place], [place] [address] Performed By: #### 2 4323-8, 2-0 #### [facility] CLIA [id number] [address] [place] [address] Protein [Mass/Vol] 6.3 g/dL Normal 6.3-8.0 [facility] Comment on above: Order Comment: Speci men Type: BLOOD SPECIMEN Ordering Facility: [facility] Address: [address] [place] [address] Performed By: #### 2 4323-8, 2-0 #### [facility] CLIA [id number] [address] [place] [address] 39886 Sodium [Moles/Vol] 130 mmol/L Low 136-144 [facility] Comment on above: Order Comment: Speci men Type: BLOOD SPECIMEN Ordering Facility: [facility] Address: [address] [place] [address] Performed By: #### 2 4323-8, 2531-0 #### [facility] CLIA [id number] [address] [place] [address]12 Urea nitrogen [Mass/Vol] 24 mg/dL Normal 9-24 [facility] Comment on above: Order Comment: Speci men Type: BLOOD SPECIMEN Ordering Facility: [facility] Address: [address] [place], [place] [address] Performed By: #### 2 4323-8, 2-0 #### [facility] CLIA [id number] [address] [place] [address] Ferritin SerPl-mCncon 2024 Ferritin [Mass/Vol] 55.6 ng/mL Normal 30.3-565.7 [facility] Comment on above: Order Comment: Speci men Type: BLOOD SPECIMEN Ordering Facility: [facility] Address: [address] [place] [address] Performed By: #### 2 4323-8, 2532-0 #### [facility] CLIA [id number] [address] [place] [address]98[address] Folate SerPl-mCncon 05-02-19 25 Folate [Mass/Vol] 8.8 ng/mL Normal >4.7 [facility] Comment on above: Order Comment: Speci men Type: BLOOD SPECIMEN Ordering Facility: [facility] Address: [address] [place] [address] Performed By: #### 2 284-8, 2132-9 #### [facility] CLIA [id number] [address] [place] [address] [place] Haptoglob SerPl-mCncon 05-02 Haptoglobin [Mass/Vol] 208 mg/dL Normal 31-238 [facility] Comment on above: Order Comment: Speci men Type: BLOOD SPECIMEN Ordering Facility: [facility] Address: [address] [place] [address] Performed By: #### 2 4323-8, 2531-0 #### [facility] CLIA [id number] [address] [place] [address] Iron and Iron binding capaci ty panelon 05-02-2024 Iron [Mass/Vol] 21 ug/dL Low 41-186 [facility] Comment on above: Order Comment: Speci men Type: BLOOD SPECIMEN Ordering Facility: [facility] Address: [address] [place], [place] [address] Performed By: #### 2 4323-8, 2532-0 #### [facility] CLIA [id number] [address] [place] [address]393 Iron binding capacity [Mass/Vol] 309 ug/dL Normal 232-386 [facility] Comment on above: Order Comment: Speci men Type: BLOOD SPECIMEN Ordering Facility: [facility] Address: [address] [place], [place] [address] Performed By: #### 2 4323-8, 2532-0 #### [facility] CLIA [id number] [address] [place] [address] Iron/TIBC [Molar ratio] 6.8 % Low 15.0-57.0 [facility] Comment on above: Order Comment: Kevin duvall Type: BLOOD SPECIMEN Ordering Facility: [facility] Address: [address] [place] [address] Performed By: #### 2 4323-8, 0 #### [facility] CLIA [id number] [address] [place] [address] 03186 LDH SerPl-cCncon 05-02-2024 LDH [Catalytic activity/Vol] 164 U/L Normal 135-225 [facility] Comment on above: Order Comment: Kevin duvall Type: BLOOD SPECIMEN Ordering Facility: [facility] Address: [address] [place] [address] Result Comment: Hemo lysis present. The origin of the hemolysis, in vitro versus an in vivo hemolytic process, cannot be distinguished via this assay alone. In vitro hemolysis may lead to non-physiological (spurious) elevation in lactate dehydrogenase (LDH) results. The result should be interpreted in context of the clinical setting and other test results. Suggest reorder as clinically indicated. Performed By: #### 2 43238, 0 #### [facility] CLIA [id number] [address] [place] [address]1667 Vit B12 SerPl-mCncon 025 Cobalamin (Vitamin B12) [Mass/Vol] 1259 pg/mL High 232-1245 [facility] Comment on above: Order Comment: Kevin duvall Type: BLOOD SPECIMEN Ordering Facility: [facility] Address: [address] [place] [address] Performed By: #### 2 284-8, 2132-9 #### [facility] CLIA [id number] [address] [place] [address] [address] [place] XR CHEST 2 VWSon 04-28-2024 XR CHEST 2 VWS XR CHEST 2 VWS Chest 2 views History: Acute bronchitis with bronchiectasis ([facility]) Comparison: 12/15/2023 Findings: Chest 2 views. Changes with interstitial thickening in the right greater than the left lung are stable. Atherosclerotic thoracic aorta. Stable cardiomediastinal silhouette. No new focal opacity, effusion or pneumothorax. Impression: Stable chronic and/or fibrotic changes without definitive new or acute process. Finalized by Jose Morrison MD on 04/28/2024 5:17 PM Normal [facility] LOWER RESPIRATORY CULTUREon 04-26-2024 Bacteria identified Respiratory culture Nom (Sput) GRAM STAIN >25 WHITE BLOOD CELLS/LPF 0 to 1 SQUAMOUS EPITHELIAL CELLS/LPF 0 CILIATED EPITHELIAL CELLS/LPF FEW GRAM POSITIVE COCCI RARE GRAM NEGATIVE RODS RARE GRAM POSITIVE RODS CULTURE RESULTS NORMAL ORAL BRYSON Normal [facility] Comment on above: Performed By: #### 6 24-7 ####[facility] ([id number])[address] [address] CREATININEon 02-28-2024 Creatinine [Mass/Vol] 1.11 mg/dL Normal 0.60-1.30 [facility] Comment on above: Result Comment: METH OD TRACEABLE TO IDMS STANDARD Performed By: #### C RT ####[facility] ([id number])[address] [address] GFR/1.73 sq M.predicted among non-blacks MDRD (S/P/Bld) [Vol rate/Area] 65 mL/min/{1.73_m2} Normal >59 [facility] Comment on above: Result Comment: Reported eGFR is based on the CKD-EPI 2020 equation that does not use a race coefficient. Performed By: #### C RT ####[facility] ([id number])[address] [address] COMPREHENSIVE METABOLIC PANE Frank 02-27-2024 Albumin [Mass/Vol] 3.7 g/dL Normal 3.2-5.3 [facility] Comment on above: Performed By: #### 2 465-3, CMP ####[facility] ([id number])[address], [place] [address] ALP [Catalytic activity/Vol] 89 U/L Normal 39-130 [facility] Comment on above: Performed By: #### 2 465-3, CMP ####[facility] ([id number])[address], [address], [place] [address] ALT [Catalytic activity/Vol] 10 U/L Normal 0-40 [facility] Comment on above: Performed By: #### 2 465-3, CMP ####[facility] ([id number])[address], [address], [place] [address] Anion gap [Moles/Vol] 6 mmol/L Normal 5-15 [facility] Comment on above: Performed By: #### 2 465-3, CMP ####[facility] ([id number])[address], [place] [address] AST [Catalytic activity/Vol] 18 U/L Normal 0-41 [facility] Comment on above: Performed By: #### 2 465-3, CMP ####[facility] ([id number])[address], [address], [place] [address] Bilirubin [Mass/Vol] 0.5 mg/dL Normal 0.3-1.2 [facility] Comment on above: Performed By: #### 2 465-3, CMP ####[facility] ([id number])[address], [address], [place] [address] Calcium [Mass/Vol] 8.9 mg/dL Normal 8.5-10.5 [facility] Comment on above: Performed By: #### 2 465-3, CMP ####[facility] ([id number])[address], [address], [place] [address] Chloride [Moles/Vol] 99 mmol/L Normal 98-109 [facility] Comment on above: Performed By: #### 2 465-3, CMP ####[facility] ([id number])[address], [address], [place] [address] CO2 [Moles/Vol] 29 mmol/L Normal 22-32 [facility] Comment on above: Performed By: #### 2 465-3, CMP ####[facility] ([id number])[address], [address], [place] [address] Creatinine [Mass/Vol] 1.12 mg/dL Normal 0.60-1.30 [facility] Comment on above: Result Comment: METH OD TRACEABLE TO IDMS STANDARD Performed By: #### 2 465-3, CMP ####[facility] ([id number])[address], [place] [address] GFR/1.73 sq M.predicted among non-blacks MDRD (S/P/Bld) [Vol rate/Area] 64 mL/min/{1.73_m2} Normal >59 [facility] Comment on above: Result Comment: Reported eGFR is based on the CKD-EPI 2020 equation that does not use a race coefficient. Performed By: #### 2 465-3, CMP ####[facility] ([id number])[address], [place] [address] Glucose [Mass/Vol] 106 mg/dL High 65-99 [facility] Comment on above: Performed By: #### 2 465-3, CMP ####[facility] ([id number])[address], [place] [address] Potassium [Moles/Vol] 4.8 mmol/L Normal 3.5-5.0 [facility] Comment on above: Performed By: #### 2 465-3, CMP ####[facility] ([id number])[address], [place] [address] Protein [Mass/Vol] 6.2 g/dL Normal 6.0-8.0 [facility] Comment on above: Performed By: #### 2 465-3, CMP ####[facility] ([id number])[address], [address] [place] [address] Sodium [Moles/Vol] 134 mmol/L Normal 134-146 [facility] Comment on above: Performed By: #### 2 465-3, CMP ####[facility] ([id number])[address], [address] [place] [address] Urea nitrogen [Mass/Vol] 22 mg/dL Normal 5-27 [facility] Comment on above: Performed By: #### 2 465-3, CMP ####[facility] ([id number])[address], [address] [place] [address] IGGon 02-27-2024 IgG [Mass/Vol] 775 mg/dL Normal 635-1741 [facility] Comment on above: Performed By: #### 2 465-3, CMP ####[facility] ([id number])[address] [address] POCT Urinalysis Auto, W/O Mi croscopyon 02-14-2024 Appearance (U) cloudy [facility]ct Urine Bilirubin Negative [facility] Urine Blood 1+ [facility] Urine Color yellow [facility] Urine Glucose Negative [facility] Urine Ketones Negative [facility] Urine Leukocyte Esterase Large [facility] Urine Nitrite Negative [facility] Urine Ph 7 [facility] Urine Protein 3+ [facility] Urine Specific [place] 1.015 [facility] Urine Urobilinogen 0.2 [facility] URINE CULTUREon 02-14-2024 Bacteria identified Cx Nom (U) CULTURE RESULTS >100,000 ORGANISMS/mL ENTEROCOCCUS SPECIES Ampicillin or Amoxicillin is the drug of choice for uncomplicated cystitis caused by enterococci. Cephalosporins are inappropriate. [ S = SUSCEPTIBLE R = RESISTANT I = INTERMEDIATE S-DO = Susceptible-dose dependent NS = Non-suscceptible NO = No Interpretation ] Organism: ENTEROCOCCUS SPECIES Antibiotic Interpretation PHILOMENA Status AMPICILLIN S <=2 F LEVOFLOXACIN S 0.5 F NITROFURANTOIN S <=16 F VANCOMYCIN S 1 F Susceptible [facility] Comment on above: Performed By: #### 6 30-4 #### [facility] ([id number]) [address] [place] [address], [address] [place] [address] BCR/ABL1 P190 QUANTITATIVE P CR BLOODon 02-01-2024 BCR/ABL1 P190 INTERPRETATION Normal [facility] Comment on above: Order Comment: Speci men Type: BLOOD SPECIMEN Ordering Facility: [facility] Address: [address] [place] [address] Result Comment: BCR/ ABL1 p190 Quantitative PCR Laboratory Accession Number: [id number] Result: UNDETECTED NCN: N/A Interpretation: p190 BCR/ABL1 transcripts were not detected. This result does not exclude the possibility of very low level transcripts below the limit of detection of this assay (>MR4.6), and a result of not detected does not exclude the presence of other BCR/ABL1 transcripts not targeted by this assay. Clinical correlation is suggested. Methodology: RNA was extracted from this sample, and cDNA prepared by reverse wrapping machine operator. Real time PCR was performed using primers for e1a2 BCR/ABL1 fusion transcripts and ABL1 transcripts (qPCR BCR/ABL minor, [employer], [place], [place]). This test does not detect p210 (e13a2 or e14a2) or other rare BCR/ABL1 transcripts. This assay has a limit of quantification of 0.0036% (LR4.4) and limit of detection of 0.0025% (LR4.6). Disclaimer: This test was developed and its performance characteristics determined by [facility]'s Pathology and Laboratory Medicine Department. It has not been cleared or approved by the FDA. [facility] Pathology and Laboratory Medicine Department is regulated under CLIA as certified to perform high-complexity testing. This test is used for clinical purposes. It should not be regarded as investigational or for research. Testing and interpretation performed at [facility], [address] [place] [address]. CLIA Number: [id number] As reviewed by Cassidy Coburn, PhD, [facility] Performed By: #### P 190P, P210P #### [facility] CLIA [id number] [address] [place] [address] [place] #### 210ISBP, 190NCBP #### [facility] CLIA [id number] [address] [place] [address] [place] BCR/ABL1 M569PNT BLOOD( AND BCR/ABL1:ABL1)on 02-01-2024 BCR/ABL1 P190 NCN(%BCR/ABL1:ABL1 ) N/A Normal [facility] Comment on above: Order Comment: Speci men Type: BLOOD SPECIMEN Ordering Facility: [facility] Address: [address] [place] [address] Performed By: #### P 190P, P210P #### [facility] CLIA [id number] [address] [place] [address] [place] #### 210ISBP, 190NCBP #### [facility] CLIA [id number] [address] [place] [address] [place] BCR/ABL1 P210 %IS PANELon BCR/ABL1 P210 %IS N/A Normal [facility] Comment on above: Order Comment: Speci men Type: BLOOD SPECIMEN Ordering Facility: [facility] Address: [address] [place] [address] Performed By: #### P 190P, P210P #### [facility] CLIA [id number] [address] [place] [address] [place] #### 210ISBP, 190NCBP #### [facility] CLIA [id number] [address] [place] [address] [place] BCR/ABL1 P210 MR N/A Normal [facility] Comment on above: Order Comment: Speci men Type: BLOOD SPECIMEN Ordering Facility: [facility] Address: [address] [place] [address] Performed By: #### P 190P, P210P #### [facility] CLIA [id number] [address] [place] [address] [place] #### 210ISBP, 190NCBP #### [facility] CLIA [id number] [address] [place] [address] [place] BCR/ABL1 P210 QUANTITATIVE P CR BLOODon 02-01-2024 BCR/ABL1 P210 INTERPRETATION Normal [facility] Comment on above: Order Comment: Speci men Type: BLOOD SPECIMEN Ordering Facility: [facility] Address: [address] [place] [address] Result Comment: BCR/ ABL1 p210 Quantitative PCR Laboratory Accession Number: [id number] Result: UNDETECTED MR: N/A %IS: N/A Interpretation: p210 BCR/ABL1 transcripts were not detected. This result does not exclude the possibility of very low level transcripts below the level of detection of this assay (>MR4.7), and a result of not detected does not exclude the possibility of other BCR/ABL1 transcripts not targeted by this assay. Methodology: The [employer] QuantideX BCR/ABL IS assay is an FDA-cleared in vitro diagnostic test for the quantitation of BCR/ABL1 and ABL1 transcripts in total RNA from whole blood of diagnosed t(9;22) positive chronic myeloid leukemia patients expressing e13a2 and/or e14a2 fusion transcripts. This test does not detect p190 (e1a2) or other rare BCR/ABL1 transcripts. This assay has a limit of quantification and limit of detection of 0.002% IS or MR4.7. References: 1) Salas et al, Blood 2006;108:28-37; Jabari et al, Leukemia 2015;29:999-1003 As reviewed by Cassidy Coburn, PhD, [facility] Performed By: #### P 190P, P210P #### [facility] CLIA [id number] [address] [place] [address] [place] #### 210ISBP, 190NCBP #### [facility] CLIA [id number] [address] [place] [address] [place] CBC W Auto Differential pane l (Bld)on 02-01-2024 Basophils (Bld) [#/Vol] 0.00 10*3/uL Normal <0.11 [facility] Comment on above: Order Comment: Speci men Type: BLOOD SPECIMEN Ordering Facility: [facility] Address: [address] [place] [address] Performed By: #### 2 284-8, 2131-12 #### [facility] CLIA [id number] [address] [place] [address] [place] Basophils/100 WBC (Bld) 0.0 % Normal [facility] Comment on above: Order Comment: Speci men Type: BLOOD SPECIMEN Ordering Facility: [facility] Address: [address] [place] [address] Performed By: #### 2 284-8, 2131-12 #### [facility] CLIA [id number] [address] [place] [address] [place] Dacrocytes LM Ql (Bld) Few Normal [facility] Comment on above: Order Comment: Speci men Type: BLOOD SPECIMEN Ordering Facility: [facility] Address: [address] [place] [address] Performed By: #### 2 284-8, 2131-12 #### [facility] CLIA [id number] [address] [place] [address] [place] Differential cell count method Nom (Bld) Manual Normal [facility] Comment on above: Order Comment: Speci men Type: BLOOD SPECIMEN Ordering Facility: [facility] Address: [address] [place] [address] Performed By: #### 2 284-8, 2131-12 #### [facility] CLIA [id number] [address] [place] [address] [place] Eosinophils (Bld) [#/Vol] 0.52 10*3/uL High <0.46 [facility] Comment on above: Order Comment: Speci men Type: BLOOD SPECIMEN Ordering Facility: [facility] Address: [address] [place] [address] Performed By: #### 2 284-8, 2131-12 #### [facility] CLIA [id number] [address] [place] [address] [place] Eosinophils/100 WBC (Bld) 1.7 % Normal [facility] Comment on above: Order Comment: Speci men Type: BLOOD SPECIMEN Ordering Facility: [facility] Address: [address] [place] [address] Performed By: #### 2 284-8, 2131-12 #### [facility] CLIA [id number] [address] [place] [address] [place] Erythrocyte distribution width (RBC) [Ratio] 14.3 % Normal 11.5-15.0 [facility] Comment on above: Order Comment: Speci men Type: BLOOD SPECIMEN Ordering Facility: [facility] Address: [address] [place] [address] Performed By: #### 2 284-8, 2131-12 #### [facility] CLIA [id number] [address] [place] [address] [place] Hematocrit (Bld) [Volume fraction] 32.9 % Low 39.0-51.0 [facility] Comment on above: Order Comment: Speci men Type: BLOOD SPECIMEN Ordering Facility: [facility] Address: [address] [place] [address] Performed By: #### 2 284-8, 2131-12 #### [facility] CLIA [id number] [address] [place] [address] [place] Hemoglobin (Bld) [Mass/Vol] 10.9 g/dL Low 13.0-17.0 [facility] Comment on above: Order Comment: Speci men Type: BLOOD SPECIMEN Ordering Facility: [facility] Address: [address] [place] [address] Performed By: #### 2 284-8, 2131-12 #### [facility] CLIA [id number] [address] [place] [address] [place] Lymphocytes (Bld) [#/Vol] 3.71 10*3/uL Normal 1.00-4.00 [facility] Comment on above: Order Comment: Speci men Type: BLOOD SPECIMEN Ordering Facility: [facility] Address: [address] [place] [address] Performed By: #### 2 284-8, 2131-12 #### [facility] CLIA [id number] [address] [place] [address] [place] Lymphocytes/100 WBC (Bld) 12.2 % Normal [facility] Comment on above: Order Comment: Speci men Type: BLOOD SPECIMEN Ordering Facility: [facility] Address: [address] [place] [address] Performed By: #### 2 284-8, 2131-12 #### [facility] CLIA [id number] [address] [place] [address] [place] MCH (RBC) [Entitic mass] 30.1 pg Normal 26.0-34.0 [facility] Comment on above: Order Comment: Speci men Type: BLOOD SPECIMEN Ordering Facility: [facility] Address: [address] [place] [address] Performed By: #### 2 284-8, 2131-12 #### [facility] CLIA [id number] [address] [place] [address] [place] MCHC (RBC) [Mass/Vol] 33.1 g/dL Normal 30.5-36.0 [facility] Comment on above: Order Comment: Speci men Type: BLOOD SPECIMEN Ordering Facility: [facility] Address: [address] [place] [address] Performed By: #### 2 284-8, 2131-12 #### [facility] CLIA [id number] [address] [place] [address] [place] MCV (RBC) [Entitic vol] 90.9 fL Normal 80.0-100.0 [facility] Comment on above: Order Comment: Speci men Type: BLOOD SPECIMEN Ordering Facility: [facility] Address: [address] [place] [address] Performed By: #### 2 284-8, 2131-12 #### [facility] CLIA [id number] [address] [place] [address] [place] Monocytes (Bld) [#/Vol] 2.13 10*3/uL High <0.87 [facility] Comment on above: Order Comment: Speci men Type: BLOOD SPECIMEN Ordering Facility: [facility] Address: [address] [place] [address] Performed By: #### 2 2848, 2131-12 #### [facility] CLIA [id number] [address] [place] [address] [place] Monocytes/100 WBC (Bld) 7.0 % Normal [facility] Comment on above: Order Comment: Speci men Type: BLOOD SPECIMEN Ordering Facility: [facility] Address: [address] [place] [address] Performed By: #### 2 284-8, 2131-12 #### [facility] CLIA [id number] [address] [place] [address] [place] Neutrophils (Bld) [#/Vol] 24.09 10*3/uL High 1.45-7.50 [facility] Comment on above: Order Comment: Speci men Type: BLOOD SPECIMEN Ordering Facility: [facility] Address: [address] [place] [address] Performed By: #### 2 284-8, 2131-12 #### [facility] CLIA [id number] [address] [place] [address] [place] Neutrophils/100 WBC (Bld) 79.1 % Normal [facility] Comment on above: Order Comment: Speci men Type: BLOOD SPECIMEN Ordering Facility: [facility] Address: [address] [place] [address] Performed By: #### 2 284-8, 2131-12 #### [facility] CLIA [id number] [address] [place] [address] [place] Nucleated RBC (Bld) [#/Vol] 10*3/uL Normal <0.01 [facility] Comment on above: Order Comment: Speci men Type: BLOOD SPECIMEN Ordering Facility: [facility] Address: [address] [place] [address] Performed By: #### 2 284-8, 2131-12 #### [facility] CLIA [id number] [address] [place] [address] [place] Nucleated RBC/100 WBC (Bld) [Ratio] 0.0 /100 WBC Normal [facility] Comment on above: Order Comment: Speci men Type: BLOOD SPECIMEN Ordering Facility: [facility] Address: [address] [place] [address] Performed By: #### 2 284-8, 2131-12 #### [facility] CLIA [id number] [address] [place] [address] [place] Ovalocytes LM Ql (Bld) Few Normal [facility] Comment on above: Order Comment: Speci men Type: BLOOD SPECIMEN Ordering Facility: [facility] Address: [address] [place] [address] Performed By: #### 2 284-8, 2131-12 #### [facility] CLIA [id number] [address] [place] [address] [place] Platelet mean volume (Bld) [Entitic vol] 10.8 fL Normal 9.0-12.7 [facility] Comment on above: Order Comment: Speci men Type: BLOOD SPECIMEN Ordering Facility: [facility] Address: [address] [place] [address] Performed By: #### 2 284-8, 2131-12 #### [facility] CLIA [id number] [address] [place] [address] [place] Platelets (Bld) [#/Vol] 264 10*3/uL Normal 150-400 [facility] Comment on above: Order Comment: Speci men Type: BLOOD SPECIMEN Ordering Facility: [facility] Address: [address] [place] [address] Performed By: #### 2 284-8, 2131-12 #### [facility] CLIA [id number] [address] [place] [address] [place] Platelets Estimate (Bld) [#/Vol] Adequate Normal [facility] Comment on above: Order Comment: Speci men Type: BLOOD SPECIMEN Ordering Facility: [facility] Address: [address] [place] [address] Performed By: #### 2 284-8, 2131-12 #### [facility] CLIA [id number] [address] [place] [address] [place] Polychromasia LM Ql (Bld) Slight Normal [facility] Comment on above: Order Comment: Speci men Type: BLOOD SPECIMEN Ordering Facility: [facility] Address: [address] [place], [place] [address] Performed By: #### 2 284-8, 2131-12 #### [facility] CLIA [id number] [address] [place] [address] [place] RBC (Bld) [#/Vol] 3.62 10*6/uL Low 4.20-6.00 [facility] Comment on above: Order Comment: Speci men Type: BLOOD SPECIMEN Ordering Facility: [facility] Address: [address] [place] [address] Performed By: #### 2 284-8, 2131-12 #### [facility] CLIA [id number] [address] [place] [address] [place] RBC FRAGMENTS Few Abnormal None Seen [facility] Comment on above: Order Comment: Speci men Type: BLOOD SPECIMEN Ordering Facility: [facility] Address: [address] [place] [address] Performed By: #### 2 284-8, 2131-12 #### [facility] CLIA [id number] [address] [place] [address] [place] RED CELL MORPH Reviewed: see result s of individual morphologies Normal [facility] Comment on above: Order Comment: Speci men Type: BLOOD SPECIMEN Ordering Facility: [facility] Address: [address] [place] [address] Performed By: #### 2 284-8, 2131-12 #### [facility] CLIA [id number] [address] [place] [address] [place] WBC (Bld) [#/Vol] 30.45 10*3/uL High 3.70-11.00 [facility] Comment on above: Order Comment: Speci men Type: BLOOD SPECIMEN Ordering Facility: [facility] Address: [address] [place] [address] Performed By: #### 2 284-8, 2131-12 #### [facility] CLIA [id number] [address] [place] [address] [place] CNOVSPon 02-01-2024 CNOVSP Visit (SP) Office ([place]) ----- RASHAD MCNAIR ([id number]) 1940 M Date Time Provider Department 10/23/24 1:30 PM DANIS SELF During your visit today, we recorded the following information about you: Temperature Pulse Respiration Blood pressure 97.3 degrees 78/minute 16/minute 97/61 Weight Height 65.8 kg 1.803 m Danis Self MD 02/01/2024 1:19 PM Signed Labs today and in 3 months F/u in 3 months Danis Self MD 02/01/2024 1:30 PM Signed PATIENT NAME: Rashad Mcnair CLINIC NO.: [id number] ATTENDING PHYSICIAN: Danis Self MD DATE OF SERVICE: February 01, 2024. Dear Dr. Blaise Marie, thank you for referring Mr Rashad Mcnair for an opinion regarding Possible CLL. Some of the elements of this note have been copied from previous progress note dated 02/02/23 . All the information has been reviewed carefully. CHIEF COMPLAINT: I have blood abnormalities HPI: Rashad Mcnair is a 82 year old year old [...] the patient mostly has neutrophilia and lymphocytosis. Visit 02/01/24: - Doing well - On 2 lit O2. On it for 1 year. - Denies any B symptoms. - Does IVIG injections every week at home. Being monitored by academic registrar at . Current Outpatient Medications Medication Sig fluticasone furoate (ARNUITY ELLIPTA) 200 mcg/actuation inhaler Inhale 1 Puff as instructed every other day. finasteride (PROSCAR) 5 mg tablet Take 5 mg by mouth once daily. ANORO ELLIPTA 62.5-25 mcg/actuation inhaler Inhale 1 Puff as instructed every other day. immun glob G,IgG,/pro/IgA 0-50 (HIZENTRA SUBCUTANEOUS) Inject subcutaneously. acetaminophen (TYLENOL) 500 mg tablet Take 500 mg by mouth every 6 hours as needed. atorvastatin (LIPITOR) 20 mg tablet Take 20 mg by mouth. Cholecalciferol, Vitamin D3, 50 mcg (2,000 unit) cap Take 2,000 Units by mouth. famotidine (PEPCID) 40 mg tablet Take 1 tablet by mouth once daily. levothyroxine (SYNTHROID) 75 mcg tablet Take 1 tablet by mouth once daily. rivaroxaban (XARELTO) 20 mg tablet Take 20 mg by mouth. sodium chloride (NEBUSAL) 3 % nebulizer solution Use 3 mL via nebulizer as needed. fluticasone-vilanterol (BREO ELLIPTA) 200-25 mcg/dose inhaler INHALE 1 PUFF INTO THE LUNGS EVERY DAY (Patient not taking: Reported on 02/01/2024) No current facility-administered medications for this visit. ALLERGIES Allergen Reactions Apixaban Itching Other reaction(s): Rash, itching Other reaction(s): Rash, itching Edoxaban Unknown Other reaction(s): Rash, itching Other reaction(s): Rash, itching Fish Containing Pro* Unknown Levofloxacin Unknown Penicillins Unknown Rivaroxaban Unknown Sulfa (Sulfonamide * Itching PAST MEDICAL HISTORY Diagnosis Date Bronchiectasis (HCC) Chronic renal impairment Mixed hyperlipidemia Secondary hypothyroidism No past surgical history on file. No family history on file. Social History Tobacco Use Smoking status: Former [...] for numbness or tingling of hands/feet. No weakne (more content not included)... Normal [facility] metabolic 2000 panelOrdered By: Jes Weiss on 02-01-2024 Albumin [Mass/Vol] 3.8 g/dL Low 3.9 - 4.9 g/dL [facility] ALP [Catalytic activity/Vol] 106 U/L 38 - 113 U/L [facility] ALT [Catalytic activity/Vol] 8 U/L Low 10 - 54 U/L [facility] Anion gap [Moles/Vol] 9 mmol/L 8 - 15 mmol/L [facility] AST [Catalytic activity/Vol] 14 U/L 14 - 40 U/L [facility] Bilirubin [Mass/Vol] 0.5 mg/dL 0.2 - 1.3 mg/dL [facility] Calcium [Mass/Vol] 9.1 mg/dL 8.5 - 10. 2 mg/dL [facility] Chloride [Moles/Vol] 98 mmol/L 98 - 107 mmol/L [facility] CO2 [Moles/Vol] 27 mmol/L 22 - 30 mmol/L [facility] Creatinine [Mass/Vol] 1.29 mg/dL High 0.73 - 1.22 mg/dL [facility] GFR/1.73 sq M.predicted among non-blacks MDRD (S/P/Bld) [Vol rate/Area] 54 mL/min/{1.73_m2} Low - PINF [facility] Comment on above: Estimated Glomerular Filtration Rate (eGFR) is calculated using the 2020 CKD-EPI creatinine equation. This equation utilizes serum creatinine, sex, and age as parameters. The creatinine assay has traceable calibration to isotope dilution-mass spectrometry. Refer to KDIGO guidelines for clinical interpretation. In patients with unstable renal function, e.g. those with acute kidney injury, the eGFR may not accurately reflect actual GFR. Glucose [Mass/Vol] 117 mg/dL High 74 - 99 mg/dL [facility] Comment on above: The [place] Diab[place] Association (ADA) provides guidance for cutoff values [...] Standards of Medical Care in Diabetes 2016, [place] [employer]. Diabetes Care. 2016.39(Suppl 1). Interpretation and review of laboratory results Abnormal [facility] Potassium [Moles/Vol] 3.9 mmol/L 3.7 - 5.1 mmol/L [facility] Protein [Mass/Vol] 6.2 g/dL Low 6.3 - 8.0 g/dL [facility] Sodium [Moles/Vol] 134 mmol/L Low 136 - 144 mmol/L [facility] Urea nitrogen [Mass/Vol] 23 mg/dL 9 - 24 mg/dL [facility] metabolic 2000 panelon 02-01-2024 Albumin [Mass/Vol] 3.8 g/dL Low 3.9-4.9 [facility] Comment on above: Order Comment: Speci men Type: BLOOD SPECIMEN Ordering Facility: [facility] Address: [address] [place] [address] Performed By: #### 2 4323-8, 0 #### [facility] CLIA [id number] [address] [place] [address] ALP [Catalytic activity/Vol] 106 U/L Normal 38-113 [facility] Comment on above: Order Comment: Speci men Type: BLOOD SPECIMEN Ordering Facility: [facility] Address: [address] [place] [address] Performed By: #### 2 4323-8, 0 #### [facility] CLIA [id number] [address] [place] [address] ALT [Catalytic activity/Vol] 8 U/L Low 10-54 [facility] Comment on above: Order Comment: Speci men Type: BLOOD SPECIMEN Ordering Facility: [facility] Address: [address] [place] [address] Performed By: #### 2 432-8, 2531-0 #### [facility] CLIA [id number] [address] [place] [address] Anion gap [Moles/Vol] 9 mmol/L Normal 8-15 [facility] Comment on above: Order Comment: Speci men Type: BLOOD SPECIMEN Ordering Facility: [facility] Address: [address] [place] [address] Performed By: #### 2 4328, 2-0 #### [facility] CLIA [id number] [address] [place] [address] AST [Catalytic activity/Vol] 14 U/L Normal 14-40 [facility] Comment on above: Order Comment: Speci men Type: BLOOD SPECIMEN Ordering Facility: [facility] Address: [address] [place] [address] Performed By: #### 2 4328, 2531-0 #### [facility] CLIA [id number] [address] [place] [address] Bilirubin [Mass/Vol] 0.5 mg/dL Normal 0.2-1.3 [facility] Comment on above: Order Comment: Speci men Type: BLOOD SPECIMEN Ordering Facility: [facility] Address: [address] [place] [address] Performed By: #### 2 4328, 2531-0 #### [facility] CLIA [id number] [address] [place] [address] Calcium [Mass/Vol] 9.1 mg/dL Normal 8.5-10.2 [facility] Comment on above: Order Comment: Speci men Type: BLOOD SPECIMEN Ordering Facility: [facility] Address: [address] [place] [address] Performed By: #### 2 4323-8, 2-0 #### [facility] CLIA [id number] [address] [place] [address] Chloride [Moles/Vol] 98 mmol/L Normal 98-107 [facility] Comment on above: Order Comment: Speci men Type: BLOOD SPECIMEN Ordering Facility: [facility] Address: [address] [place] [address] Performed By: #### 2 4323-8, 0 #### [facility] CLIA [id number] [address] [place] [address] CO2 [Moles/Vol] 27 mmol/L Normal 22-30 [facility] Comment on above: Order Comment: Speci men Type: BLOOD SPECIMEN Ordering Facility: [facility] Address: [address] [place] [address] Performed By: #### 2 4323-8, 0 #### [facility] CLIA [id number] [address] [place] [address] Creatinine [Mass/Vol] 1.29 mg/dL High 0.73-1.22 [facility] Comment on above: Order Comment: Speci men Type: BLOOD SPECIMEN Ordering Facility: [facility] Address: [address] [place] [address] Performed By: #### 2 4323-8, #### [facility] CLIA [id number] [address] [place] [address] Creatinine and Glomerular filtration rate.predicted panel (S/P/Bld) 54 mL/min/1.73m??? Low >=60 [facility] Comment on above: Order Comment: Speci men Type: BLOOD SPECIMEN Ordering Facility: [facility] Address: [address] [place] [address] Result Comment: Doug mated Glomerular Filtration Rate [...] reflect actual GFR. Performed By: #### 2 4323, #### [facility] CLIA [id number] [address] [place] [address] Glucose [Mass/Vol] 117 mg/dL High 74-99 [facility] Comment on above: Order Comment: Speci men Type: BLOOD SPECIMEN Ordering Facility: [facility] Address: [address] [place] [address] Result Comment: The [place] Diabetes Association (ADA) provides guidance for cutoff [...] Standards of Medical Care in Diabetes 2016, [place] Diabetes Association. Diabetes Care. 2016.39(Suppl 1). Performed By: #### 2 4328, #### [facility] CLIA [id number] [address] [place] [address] Potassium [Moles/Vol] 3.9 mmol/L Normal 3.7-5.1 [facility] Comment on above: Order Comment: Speci men Type: BLOOD SPECIMEN Ordering Facility: [facility] Address: [address] [place] [address] Performed By: #### 2 43206-16, 0 #### [facility] CLIA [id number] [address] [place] [address] Protein [Mass/Vol] 6.2 g/dL Low 6.3-8.0 [facility] Comment on above: Order Comment: Kevin men Type: BLOOD SPECIMEN Ordering Facility: [facility] Address: [address] [place] [address] Performed By: #### 2 43206-16, 0 #### [facility] CLIA [id number] [address] [place] [address] Sodium [Moles/Vol] 134 mmol/L Low 136-144 [facility] Comment on above: Order Comment: Speci men Type: BLOOD SPECIMEN Ordering Facility: [facility] Address: [address] [place] [address] Performed By: #### 2 4323-8, 2532-0 #### [facility] CLIA [id number] [address] [place] [address] Urea nitrogen [Mass/Vol] 23 mg/dL Normal 9-24 [facility] Comment on above: Order Comment: Speci men Type: BLOOD SPECIMEN Ordering Facility: [facility] Address: [address] [place] [address] Performed By: #### 2 4323-8, 2532-0 #### [facility] CLIA [id number] [address] [place], [place] [address] IgG SerPl-mCncon 02-01-2024 IgG [Mass/Vol] 822 mg/dL Normal 700-1600 [facility] Comment on above: Order Comment: Speci men Type: BLOOD SPECIMEN Ordering Facility: [facility] Address: [address] [place] [address] Performed By: #### 2 284-8, 2132-9 #### [facility] CLIA [id number] [address] [place] [address] [place] LACTATE DEHYDROGENASEon 01-10 LDH [Catalytic activity/Vol] 128 U/L Low 135 - 225 U/L [facility] LDH SerPl-cCncon 02-01-2024 LDH [Catalytic activity/Vol] 128 U/L Low 135-225 [facility] Comment on above: Order Comment: Speci men Type: BLOOD SPECIMEN Ordering Facility: [facility] Address: [address] [place] [address] Performed By: #### 2 4323-8, 2532-0 #### [facility] CLIA [id number] [address] [place] [address] LDH [Catalytic activity/Vol] on 02-01-2024 Interpretation and review of laboratory results Abnormal [facility] BASIC METABOLIC PANLon 12-16 Anion gap [Moles/Vol] 6 mmol/L Normal 5-15 [facility] Comment on above: Performed By: #### 2 465-3 #### [facility] ([id number]) [address], [address] [place] [address] Calcium [Mass/Vol] 8.5 mg/dL Normal 8.5-10.5 [facility] Comment on above: Performed By: #### 2 465-3 #### [facility] ([id number]) [address], [address] [place] [address] Chloride [Moles/Vol] 100 mmol/L Normal 98-109 [facility] Comment on above: Performed By: #### 2 465-3 #### [facility] ([id number]) [address], [address] [place] [address] CO2 [Moles/Vol] 22 mmol/L Normal 22-32 [facility] Comment on above: Performed By: #### 2 465-3 #### [facility] ([id number]) [address], [address] [place] [address] Creatinine [Mass/Vol] 1.03 mg/dL Normal 0.70-1.20 [facility] Comment on above: Result Comment: METH OD TRACEABLE TO IDMS STANDARD Performed By: #### 2 465-3 #### [facility] ([id number]) [address], [address] [place] [address] GFR/1.73 sq M.predicted among non-blacks MDRD (S/P/Bld) [Vol rate/Area] 71 mL/min/{1.73_m2} Normal >59 [facility] Comment on above: Result Comment: Reported eGFR is based on the CKD-EPI 2020 equation that does not use a race coefficient. Performed By: #### 2 465-3 #### [facility] ([id number]) [address], [address] [place] [address] Glucose [Mass/Vol] 158 mg/dL High 65-99 [facility] Comment on above: Performed By: #### 2 465-3 #### [facility] ([id number]) [address], [address] [place] [address] Potassium [Moles/Vol] 3.8 mmol/L Normal 3.5-5.0 [facility] Comment on above: Performed By: #### 2 465-3 #### [facility] ([id number]) [address], [address] [place] [address] Sodium [Moles/Vol] 128 mmol/L Low 134-146 [facility] Comment on above: Performed By: #### 2 465-3 #### [facility] ([id number]) [address], [address] [place] [address] Urea nitrogen [Mass/Vol] 33 mg/dL High 5-27 [facility] Comment on above: Performed By: #### 2 465-3 #### [facility] ([id number]) [address], [address] [place] [address] Glucose Glucometer (BldC) [M ass/Vol]on 12-17-2023 Glucose [Mass/Vol] 170 mg/dL High 65-99 [facility] Glucose [Mass/Vol] 122 mg/dL High 65-99 [facility] BASIC METABOLIC PANLon 12-15 Anion gap [Moles/Vol] 9 mmol/L Normal 5-15 [facility] Comment on above: Performed By: #### 2 465-3 #### [facility] ([id number]) [address], [address] [place] [address] Calcium [Mass/Vol] 8.5 mg/dL Normal 8.5-10.5 [facility] Comment on above: Performed By: #### 2 465-3 #### [facility] ([id number]) [address] [place] [address] Chloride [Moles/Vol] 101 mmol/L Normal 98-109 [facility] Comment on above: Performed By: #### 2 465-3 #### [facility] ([id number]) [address] [place] [address] CO2 [Moles/Vol] 21 mmol/L Low 22-32 [facility] Comment on above: Performed By: #### 2 465-3 #### [facility] ([id number]) [address], [address] [place] [address] Creatinine [Mass/Vol] 1.01 mg/dL Normal 0.70-1.20 [facility] Comment on above: Result Comment: METH OD TRACEABLE TO IDMS STANDARD Performed By: #### 2 465-3 #### [facility] ([id number]) [address], [address] [place] [address] GFR/1.73 sq M.predicted among non-blacks MDRD (S/P/Bld) [Vol rate/Area] 73 mL/min/{1.73_m2} Normal >59 [facility] Comment on above: Result Comment: Reported eGFR is based on the CKD-EPI 2020 equation that does not use a race coefficient. Performed By: #### 2 465-3 #### [facility] ([id number]) [address] [place] [address] Glucose [Mass/Vol] 149 mg/dL High 65-99 [facility] Comment on above: Performed By: #### 2 465-3 #### [facility] ([id number]) [address] [place] [address] Potassium [Moles/Vol] 4.1 mmol/L Normal 3.5-5.0 [facility] Comment on above: Performed By: #### 2 465-3 #### [facility] ([id number]) [address] [place] [address] Sodium [Moles/Vol] 131 mmol/L Low 134-146 [facility] Comment on above: Performed By: #### 2 465-3 #### [facility] ([id number]) [address] [place] [address] Urea nitrogen [Mass/Vol] 28 mg/dL High 5-27 [facility] Comment on above: Performed By: #### 2 465-3 #### [facility] ([id number]) [address] [place] [address] CBC AND AUTO DIFFon 12-16-19 24 ABSOLUTE BASOPHIL 0.0 X10E9/L Normal 0.0-0.2 [facility] Comment on above: Performed By: #### 2 465-3 #### [facility] ([id number]) [address] [place] [address] ABSOLUTE NEUTROPHIL 18.8 X10E9/L High 1.5-6.6 [facility] Comment on above: Performed By: #### 2 465-3 #### [facility] ([id number]) [address] [place] [address] Basophils/100 WBC (Bld) 0.1 % Normal [facility] Comment on above: Performed By: #### 2 465-3 #### [facility] [facility] ([id number]) [address], [address] [place] [address] Eosinophils (Bld) [#/Vol] 0.0 10*3/uL Normal 0.0-0.4 [facility] Comment on above: Performed By: #### 2 465-3 #### [facility] ([id number]) [address], [address] [place] [address] Eosinophils/100 WBC (Bld) 0.0 % Normal [facility] Comment on above: Performed By: #### 2 465-3 #### [facility] ([id number]) [address], [address] [place] [address] Erythrocyte distribution width (RBC) [Ratio] 14.7 % Normal 11.5-15.0 [facility] Comment on above: Performed By: #### 2 465-3 #### [facility] ([id number]) [address], [facility] [address] [place] [address] Hematocrit (Bld) [Volume fraction] 31.6 % Low 39-49 [facility] Comment on above: Performed By: #### 2 465-3 #### [facility] ([id number]) [address] [place] [address] Hemoglobin (Bld) [Mass/Vol] 10.2 g/dL Low 13.0-17.0 [facility] Comment on above: Performed By: #### 2 465-3 #### [facility] ([id number]) [address], [address] [place] [address] Lymphocytes (Bld) [#/Vol] 4.3 10*3/uL High 1.0-3.5 [facility] Comment on above: Performed By: #### 2 465-3 #### [facility] ([id number]) [address], [address] [place] [address] Lymphocytes/100 WBC (Bld) 18.3 % Normal [facility] Comment on above: Performed By: #### 2 465-3 #### [facility] ([id number]) [address], [address] [place] [address] MCH (RBC) [Entitic mass] 29.3 pg Normal 27-34 [facility] Comment on above: Performed By: #### 2 465-3 #### [facility] ([id number]) [address], [address] [place] [address] MCHC (RBC) [Mass/Vol] 32.2 g/dL Normal 32-36 [facility] Comment on above: Performed By: #### 2 465-3 #### [facility] ([id number]) [address], [address] [place] [address] MCV (RBC) [Entitic vol] 91 fL Normal 80-100 [facility] Comment on above: Performed By: #### 2 465-3 #### [facility] ([id number]) [address], [address] [place] [address] Monocytes (Bld) [#/Vol] 0.3 10*3/uL Normal 0-0.9 [facility] Comment on above: Performed By: #### 2 465-3 #### [facility] ([id number]) [address], [address] [place] [address] Monocytes/100 WBC (Bld) 1.3 % Normal [facility] Comment on above: Performed By: #### 2 465-3 #### [facility] ([id number]) [address], [address] [place] [address] Neutrophils/100 WBC (Bld) 80.3 % Normal [facility] Comment on above: Performed By: #### 2 465-3 #### [facility] ([id number]) [address], [address] [place] [address] Platelet mean volume (Bld) [Entitic vol] 11.2 fL Normal 7-12 [facility] Comment on above: Performed By: #### 2 465-3 #### [facility] ([id number]) [address], [address] [place] [address] Platelets (Bld) [#/Vol] 116 10*3/uL Low 150-450 [facility] Comment on above: Performed By: #### 2 465-3 #### [facility] ([id number]) [address], [address] [place] [address] RBC COUNT 3.47 X10E12/L Low 4.10-5.70 [facility] Comment on above: Performed By: #### 2 465-3 #### [facility] ([id number]) [address], [address] [place] [address] WBC (Bld) [#/Vol] 23.4 10*3/uL High 4.0-11.0 [facility] Comment on above: Performed By: #### 2 465-3 #### [facility] ([id number]) [address], [address] [place] [address] Glucose Glucometer (BldC) [M ass/Vol]on 12-16-2023 Glucose [Mass/Vol] 189 mg/dL High 65-99 [facility] Glucose [Mass/Vol] 158 mg/dL High 65-99 [facility] Glucose [Mass/Vol] 317 mg/dL High 65-99 [facility] Glucose [Mass/Vol] 141 mg/dL High 65-99 [facility] BLOOD CULTUREon 12-15-2023 Bacteria identified Aer cx Nom (Bld) CULTURE RESULTS NO GROWTH 5 DAYS Normal [facility] Bacteria identified Aer cx Nom (Bld) CULTURE RESULTS NO GROWTH 5 DAYS Normal [facility] CBC AND AUTO DIFFon 12-15-19 Erythrocyte distribution width (RBC) [Ratio] 14.5 % Normal 11.5-15.0 [facility] Comment on above: Performed By: #### C MP, CBCA, PINR, 44628-4, 81633-7, 47547-6, THYR #### [facility] ([id number]) [address] [place] [address], [place] [address] Hematocrit (Bld) [Volume fraction] 37.8 % Low 39-49 [facility] Comment on above: Performed By: #### C MP, CBCA, PINR, 42657-4, 87738-6, 60774-9, THYR #### [facility] ([id number]) [address] [place] [address] Hemoglobin (Bld) [Mass/Vol] 12.2 g/dL Low 13.0-17.0 [facility] Comment on above: Performed By: #### C MP, CBCA, PINR, 06466-3, 93658-6, 75900-4, THYR #### [facility] ([id number]) [address] [place] [address] Lymphocytes (Bld) [#/Vol] 3.4 10*3/uL Normal 1.0-3.5 [facility] Comment on above: Performed By: #### C MP, CBCA, PINR, 37762-2, 00319-7, 52198-4, THYR #### [facility] ([id number]) [address] [place] [address] Lymphocytes/100 WBC (Bld) 8.0 % Normal [facility] Comment on above: Performed By: #### C MP, CBCA, PINR, 04827-9, 62182-7, 65337-4, THYR #### [facility] ([id number]) [address] [place] [address] MCH (RBC) [Entitic mass] 29.3 pg Normal 27-34 [facility] Comment on above: Performed By: #### C MP, CBCA, PINR, 48536-9, 20968-4, 08566-0, THYR #### [facility] ([id number]) [address] [place] [address] MCHC (RBC) [Mass/Vol] 32.2 g/dL Normal 32-36 [facility] Comment on above: Performed By: #### C MP, CBCA, PINR, 16570-5, 79132-1, 94329-0, THYR #### [facility] ([id number]) [address] [place] [address] MCV (RBC) [Entitic vol] 91 fL Normal 80-100 [facility] Comment on above: Performed By: #### C MP, CBCA, PINR, 13005-9, 21073-0, 09933-7, THYR #### [facility] ([id number]) [address] [place] [address] Monocytes (Bld) [#/Vol] 3.9 10*3/uL High 0-0.9 [facility] Comment on above: Performed By: #### C MP, CBCA, PINR, 07189-8, 41354-2, 36052-0, THYR #### [facility] ([id number]) [address] [place] [address] Monocytes/100 WBC (Bld) 9.0 % Normal [facility] Comment on above: Performed By: #### C MP, CBCA, PINR, 28136-4, 55695-1, 32546-2, THYR #### [facility] ([id number]) [address] [place] [address] MYELOCYTE 1.0 % Normal [facility] Comment on above: Performed By: #### C MP, CBCA, PINR, 08514-0, 11039-8, 66587-4, THYR #### [facility] ([id number]) [address] [place] [address] Neutrophils (Bld) [#/Vol] 35.2 10*3/uL High 1.5-6.6 [facility] Comment on above: Performed By: #### C MP, CBCA, PINR, 01271-5, 81547-6, 70057-6, THYR #### [facility] ([id number]) [address] [place] [address] Platelet mean volume (Bld) [Entitic vol] 10.8 fL Normal 7-12 [facility] Comment on above: Performed By: #### C MP, CBCA, PINR, 99189-4, 12812-5, 19047-6, THYR #### [facility] ([id number]) [address] [place] [address] Platelets (Bld) [#/Vol] 154 10*3/uL Normal 150-450 [facility] Comment on above: Performed By: #### C MP, CBCA, PINR, 64673-3, 62534-9, 55686-4, THYR #### [facility] ([id number]) [address] [place] [address] RBC COUNT 4.16 X10E12/L Normal 4.10-5.70 [facility] Comment on above: Performed By: #### C MP, CBCA, PINR, 34867-2, 21870-1, 55456-6, THYR #### [facility] ([id number]) [address] [place] [address] RBC morphology finding Nom (Bld) NORMAL Normal [facility] Comment on above: Performed By: #### C MP, CBCA, PINR, 00537-9, 36457-3, 84295-6, THYR #### [facility] ([id number]) [address] [place] [address] SEG NEUTROPHIL 82.0 % Normal [facility] Comment on above: Performed By: #### C MP, CBCA, PINR, 47450-5, 02456-6, 51690-3, THYR #### [facility] ([id number]) [address] [place] [address] WBC (Bld) [#/Vol] 42.9 10*3/uL High 4.0-11.0 [facility] Comment on above: Performed By: #### C MP, CBCA, PINR, 42758-1, 86757-6, 22989-9, THYR #### [facility] ([id number]) [address] [place] [address] COMPREHENSIVE METABOLIC PANE Frank 12-15-2023 Albumin [Mass/Vol] 4.2 g/dL Normal 3.2-5.3 [facility] Comment on above: Performed By: #### C MP, CBCA, PINR, 41006-9, 74003-2, 94152-6, THYR #### [facility] ([id number]) [address] [place] [address] ALP [Catalytic activity/Vol] 124 U/L Normal 39-130 [facility] Comment on above: Performed By: #### C MP, CBCA, PINR, 94760-7, 86497-5, 22286-8, THYR #### [facility] ([id number]) [address] [place] [address] 14044 ALT [Catalytic activity/Vol] 25 U/L Normal 0-40 [facility] Comment on above: Performed By: #### C MP, CBCA, PINR, 07967-8, 75203-6, 18857-7, THYR #### [facility] ([id number]) [address] [place] [address] [place] [address] Anion gap [Moles/Vol] 9 mmol/L Normal 5-15 [facility] Comment on above: Performed By: #### C MP, CBCA, PINR, 79895-7, 30951-2, 27864-6, THYR #### [facility] ([id number]) [address] [place] [address] AST [Catalytic activity/Vol] 32 U/L Normal 0-41 [facility] Comment on above: Performed By: #### C MP, CBCA, PINR, 44340-9, 14803-8, 16918-8, THYR #### [facility] ([id number]) [address] [place] [address] [place] [address] Bilirubin [Mass/Vol] 2.3 mg/dL High 0.3-1.2 [facility] Comment on above: Performed By: #### C MP, CBCA, PINR, 01072-3, 83510-3, 80446-7, THYR #### [facility] ([id number]) [address] [place] [address] Calcium [Mass/Vol] 9.4 mg/dL Normal 8.5-10.5 [facility] Comment on above: Performed By: #### C MP, CBCA, PINR, 74797-8, 15801-7, 14620-6, THYR #### [facility] ([id number]) [address] [place] [address], [place] [address] Chloride [Moles/Vol] 100 mmol/L Normal 98-109 [facility] Comment on above: Performed By: #### C MP, CBCA, PINR, 56244-7, 40061-6, 50433-4, THYR #### [facility] ([id number]) [address] [place] [address], [place] [address] CO2 [Moles/Vol] 24 mmol/L Normal 22-32 [facility] Comment on above: Performed By: #### C MP, CBCA, PINR, 11219-4, 62918-4, 79575-1, THYR #### [facility] ([id number]) [address] [place] [address], [place] [address] Creatinine [Mass/Vol] 1.40 mg/dL High 0.70-1.20 [facility] Comment on above: Result Comment: METH OD TRACEABLE TO IDMS STANDARD Performed By: #### C MP, CBCA, PINR, 34015-0, 16543-9, 42370-9, THYR #### [facility] ([id number]) [address] [place] [address] GFR/1.73 sq M.predicted among non-blacks MDRD (S/P/Bld) [Vol rate/Area] 49 mL/min/{1.73_m2} Low >59 [facility] Comment on above: Result Comment: Reported eGFR is based on the CKD-EPI 2020 equation that does not use a race coefficient. Performed By: #### C MP, CBCA, PINR, 80479-1, 26480-6, 85426-4, THYR #### [facility] ([id number]) [address] [place] [address] Glucose [Mass/Vol] 112 mg/dL High 65-99 [facility] Comment on above: Performed By: #### C MP, CBCA, PINR, 31661-1, 19850-1, 20932-8, THYR #### [facility] ([id number]) [address] [place] [address] Potassium [Moles/Vol] 3.9 mmol/L Normal 3.5-5.0 [facility] Comment on above: Performed By: #### C MP, CBCA, PINR, 97117-0, 50842-9, 32789-3, THYR #### [facility] ([id number]) [address] [place] [address] Protein [Mass/Vol] 6.9 g/dL Normal 6.0-8.0 [facility] Comment on above: Performed By: #### C MP, CBCA, PINR, 79441-3, 91925-8, 27018-0, THYR #### [facility] ([id number]) [address] [place] [address], [place] [address] Sodium [Moles/Vol] 133 mmol/L Low 134-146 [facility] Comment on above: Performed By: #### C MP, CBCA, PINR, 18274-9, 32701-1, 01055-9, THYR #### [facility] ([id number]) [address] [place] [address] Urea nitrogen [Mass/Vol] 26 mg/dL Normal 5-27 [facility] Comment on above: Performed By: #### C MP, CBCA, PINR, 31521-4, 16116-8, 05054-4, THYR #### [facility] ([id number]) [address] [place] [address] CT CHEST WO CONTon CT CHEST WO CONT CT CHEST WO CONT STUDY: CT chest without contrast CLINICAL HISTORY: Respiratory illness, COMPARISON: 04/27/2023. TECHNIQUE: CT chest was performed without contrast. Coronal and sagittal reformatted images were obtained and reviewed. Automated exposure control was utilized. FINDINGS: Assessment in the absence of intravenous contrast is suboptimal, especially with respect to vasculature, metastatic disease, and infectious precesses [if clinically relevant]. Despite this constraint, best attempt is made: No acute findings at the thoracic inlet, body wall, visualized upper abdomen. Small hiatal hernia with apparent esophageal wall thickening. No aggressive osseous lesions. Diffuse idiopathic skeletal hyperostosis Nonenlarged heart. Moderate calcified coronary arterial disease. No aortic intramural hematoma. Unremarkable pulmonary arteries. No pneumothorax or pleural effusion. Confluent, somewhat consolidative, bibasilar opacities. Additional clustered tree-in-bud nodularity diffusely throughout the lung parenchyma [most notably right lung apex, lingular, middle lobe, bibasilar region Bronchial wall thickening, which may be seen in the setting of airway infection/inflammation. Notable extensive cylindrical bronchiectasis with basilar predominance. IMPRESSION: 1. Dependent right basilar opacities, left greater than right, presumed infection or aspiration. 2. Extensive symmetrical bronchiectasis, likely related to long-standing infection. Tree-in-bud nodularity throughout the majority of the lungs [relative sparing left upper lobe], presumably and bronchial spread of infection, such as mycobacterium avium complex. 3. Mild wall thickening the esophagus, correlate for clinical signs of esophagitis. All CT scans at this facility use dose modulation, iterative reconstruction, and/or weight based dosing when appropriate to reduce radiation dose to as low as reasonably achievable. Finalized by Bishnu Upton MD on 12/15/2023 7:26 PM Normal [facility] Glucose Glucometer (BldC) [M ass/Vol]on 12-15-2023 Glucose [Mass/Vol] 118 mg/dL High 65-99 [facility] LOWER RESPIRATORY CULTUREon 12-15-2023 Bacteria identified Respiratory culture Nom (Sput) GRAM STAIN >25 WHITE BLOOD CELLS/LPF 10 to 24 SQUAMOUS EPITHELIAL CELLS/LPF 0 CILIATED EPITHELIAL CELLS/LPF FEW GRAM POSITIVE COCCI IN CLUSTERS RARE GRAM NEGATIVE RODS RARE GRAM POSITIVE RODS RARE YEAST CULTURE RESULTS MANY PSEUDOMONAS AERUGINOSA ALONG WITH MODERATE NORMAL ORAL BRYSON [ S = SUSCEPTIBLE R = RESISTANT I = INTERMEDIATE S-DO = Susceptible-dose dependent NS = Non-suscceptible NO = No Interpretation ] Organism: PSEUDOMONAS AERUGINOSA Antibiotic Interpretation PHILOMENA Status CEFEPIME S F [ S = SUSCEPTIBLE R = RESISTANT I = INTERMEDIATE S-DO = Susceptible-dose dependent NS = Non-suscceptible NO = No Interpretation ] Organism: PSEUDOMONAS AERUGINOSA Antibiotic Interpretation PHILOMENA Status CIPROFLOXACIN S 0.5 F LEVOFLOXACIN S 1 F MEROPENEM S <=0.25 F TOBRAMYCIN S <=1 F PIPERACIL/TAZOBACTAM S <=4 F Susceptible [facility] Comment on above: Performed By: #### 2 465-3 #### [facility] ([id number]) [address], [address] [place] [address] Lactate (P ramón) [Moles/Vol]o n 12-15-2023 LACTATE W/REFLEX 1.4 mmol/L Normal 0.4-2.0 [facility] Comment on above: Result Comment: Result did not trigger repeat Lactate, re-order if needed. Performed By: #### C MP #### [facility] ([id number]) [address], [address] [place] [address] MAGNESIUMon 12-15-2023 Magnesium [Mass/Vol] 1.9 mg/dL Normal 1.8-2.6 [facility] Comment on above: Performed By: #### C MP, CBCA, PINR, 33673-2, 98455-3, 23660-5, THYR #### [facility] ([id number]) [address] [place] [address] PROTIME AND INRon 12-15-2023 INR Coag (PPP) [Relative time] 1.1 {INR} Normal 0.8-1.1 [facility] Comment on above: Performed By: #### C MP, CBCA, PINR, 74449-8, 70376-8, 27772-1, THYR #### [facility] ([id number]) [address] [place] [address] PT Coag (PPP) [Time] 12.9 s Normal 9.8-13.2 [facility] Comment on above: Result Comment: NEW REFERENCE RANGE Performed By: #### C MP, CBCA, PINR, 80157-7, 49155-3, 12658-5, THYR #### [facility] ([id number]) [address] [place] [address] Procalcitonin IA [Mass/Vol]o n 12-15-2023 PROCALCITONIN 0.59 ng/mL High <0.05 [facility] Comment on above: Result Comment: NOTE <0.50 ng/mL - Low risk of severe sepsis and/or septic shock. <2.00 ng/mL - Recommend retesting within 6-24 hours. >2.00 ng/mL - High risk of sepsis and/or septic shock. Performed By: #### C MP #### [facility] ([id number]) [address] [facility] [place] [address] SARS/FLU A+B/RSV by NAAT/Mol ecularon 12-15-2023 SARS/FLU A+B/RSV by NAAT/Molecular FLU A PCR Negative (qualifier value) FLU B PCR Negative (qualifier value) RSV by PCR Negative (qualifier value) SARS CoV 2 Not detected (qualifier value) NOTE The Xpert Xpress SARS-CoV-2/Flu/RSV Plus test is a rapid, multiplexed real-time RT-PCR test intended for the simultaneous qualitative detection and differentiation of SARS-CoV-2, influenza A, influenza B and respiratory syncytial virus (RSV) viral RNA from individuals suspected of respiratory viral infection consistent with COVID-19 by their healthcare provider. This test has not been validated in asymptomatic patients. The Xpert Xpress SARS-CoV-2 test is intended for use by qualified and trained operators who are performing tests using either [employer] or [employer] systems and is limited to laboratories that meet the CLIA requirements to perform high and moderate complexity tests. The Xpert Xpress SARS-CoV-2/Flu/RSV Plus is only for use under the Food and Drug Administration's Emergency Use Authorization. Results are for the simultaneous detection and differentiation of SARS-CoV-2, influenza A, influenza B and RSV nucleic acids in clinical specimens. SARS-CoV-2, influenza A, influenza B and RSV RNA identified by this test are generally detectable in upper respiratory samples during the acute phase of infection. Positive results are indicative of the presence of the identified virus, but do not rule out bacterial infection or co-infection with other pathogens not detected by this test. Clinical correlation with patient history and other diagnostic information is necessary to determine patient infection status. The agent detected may not be the definite cause of disease. Negative results do not preclude SARS-CoV-2, influenza A, influenza B and RSV infection and should not be used as the sole basis for treatment or other patient management decisions. Negative results must be combined with clinical observations, patient history and epidemiological information. An Invalid result may occur with specimen-associated inhibition unable to be resolved with specimen repeat. Fact Sheet for Healthcare Providers: https://www.fda.gov/media /179486/download Fact Sheet for Patients: https://www.fda.gov/media /321234/download Normal [facility] Comment on above: Performed By: #### C MP #### [facility] ([id number]) [address] [place] [address], [address] [place] [address] THYROID PROFILEon 12-15-2023 Free T4 [Mass/Vol] 1.03 ng/dL Normal 0.61-1.60 [facility] Comment on above: Performed By: #### C MP #### [facility] ([id number]) [address], [address] [place] [address] TSH 1.05 uIU/mL Normal 0.49-4.67 [facility] Comment on above: Performed By: #### C MP #### [facility] ([id number]) [address], [address] [place] [address] URN MACROSCOPIC NURon 2023 BILIRUBIN AUDRA Negative Normal NEG [facility] Comment on above: Performed By: #### C MP #### [facility] ([id number]) [address], [address] [place] [address] BLOOD/HGB AUDRA Small Abnormal NEG [facility] Comment on above: Performed By: #### C MP #### [facility] ([id number]) [address], [address] [place] [address] GLUCOSE AUDRA Negative Normal NEG [facility] Comment on above: Performed By: #### C MP #### [facility] ([id number]) [address], [address] [place] [address] KETONES AUDRA Negative Normal NEG [facility] Comment on above: Performed By: #### C MP #### [facility] ([id number]) [address], [address] [place] [address] LEUKOCYTE ESTERASE AUDRA Negative Normal NEG [facility] Comment on above: Performed By: #### C MP #### [facility] ([id number]) [address], [address] [place] [address] NITRITE AUDRA Negative Normal NEG [facility] Comment on above: Performed By: #### C MP #### [facility] ([id number]) [address], [address] [place] [address] PH AUDRA 7.0 Normal 5.0-8.5 [facility] Comment on above: Performed By: #### C MP #### [facility] ([id number]) [address], [address] [place] [address] PROTEIN AUDRA Negative Normal NEG [facility] Comment on above: Performed By: #### C MP #### [facility] ([id number]) [address], [address] [place] [address] SPECIFIC GRAVITY AUDRA 1.020 Normal 1.003-1.035 [facility] Comment on above: Performed By: #### C MP #### [facility] ([id number]) [address], [address] [place] [address] UROBILINOGEN AUDRA 0.2 eu/dL Normal <1.1 [facility] Comment on above: Performed By: #### C MP #### [facility] ([id number]) [address], [address] [place] [address] XR CHEST 1 VWon 12-15-2023 XR CHEST 1 VW XR CHEST 1 VW History: Harsh coughing, and trouble breathing. Vomiting. Hypotension Exam/Technique: Portable upright AP chest Comparison: 07/04/2023 and contrast-enhanced chest CT from 04/27/2023 Findings: Increasing patchy infiltrate at the right lung base, suggestive of right lower lobe pneumonia. Scattered extensive increased markings elsewhere bilaterally appear to be at least primarily correspond to the extensive changes of bronchiectasis previously seen with CT. No pleural abnormalities displayed. Cardiac and mediastinal contours display no gross abnormalities . IMPRESSION: Increasing infiltrate right lung base, consistent with pneumonia superimposed on extensive chronic changes Finalized by Tony Rubi MD on 12/15/2023 2:57 PM Normal [facility] aPTT Coag (PPP) [Time]on aPTT Coag (Bld) [Time] 37 s Normal 26-37 [facility] Comment on above: Result Comment: NEW REFERENCE RANGE Performed By: #### C MP, CBCA, PINR, 06051-5, 21060-6, 84968-9, THYR #### [facility] ([id number]) 5 [facility], [place] [address] IGGon 10-25-2023 IgG [Mass/Vol] 795 mg/dL Normal 635-1741 [facility] Comment on above: Performed By: #### 2 465-3 #### [facility] ([id number]) [address], [address] [place] [address] BASIC METABOLIC PANLon 09-06 Anion gap [Moles/Vol] 7 mmol/L Normal 5-15 [facility] Comment on above: Performed By: #### C BCA, BMP #### [facility] ([id number]) [address], [address] [place] [address] Calcium [Mass/Vol] 9.0 mg/dL Normal 8.5-10.5 [facility] Comment on above: Performed By: #### C BCA, BMP #### [facility] ([id number]) [address], [address] [place] [address] Chloride [Moles/Vol] 95 mmol/L Low 98-109 [facility] Comment on above: Performed By: #### C BCA, BMP #### [facility] ([id number]) [address], [address] [place] [address] CO2 [Moles/Vol] 26 mmol/L Normal 22-32 [facility] Comment on above: Performed By: #### C BCA, BMP #### [facility] ([id number]) [address], [address] [place] [address] Creatinine [Mass/Vol] 1.38 mg/dL High 0.60-1.30 [facility] Comment on above: Result Comment: METH OD TRACEABLE TO IDMS STANDARD Performed By: #### C BCA, BMP #### [facility] ([id number]) [address] [address] [place] [address] GFR/1.73 sq M.predicted among non-blacks MDRD (S/P/Bld) [Vol rate/Area] 50 mL/min/{1.73_m2} Low >59 [facility] Comment on above: Result Comment: Reported eGFR is based on the CKD-EPI 2020 equation that does not use a race coefficient. Performed By: #### C BCA, BMP #### [facility] ([id number]) [address], [address] [place] [address] Glucose [Mass/Vol] 83 mg/dL Normal 65-99 [facility] Comment on above: Performed By: #### C BCA, BMP #### [facility] ([id number]) [address] [address] Potassium [Moles/Vol] 4.3 mmol/L Normal 3.5-5.0 [facility] Comment on above: Performed By: #### C BCA, BMP #### [facility] ([id number]) [address] [address] [place] [address] Sodium [Moles/Vol] 128 mmol/L Low 134-146 [facility] Comment on above: Performed By: #### C BCA, BMP #### [facility] ([id number]) [address] [address] [place] [address] Urea nitrogen [Mass/Vol] 24 mg/dL Normal 5-27 [facility] Comment on above: Performed By: #### C BCA, BMP #### [facility] ([id number]) [address] [address] [place] [address] Basic Metabolic Panelon 05-2 Anion gap [Moles/Vol] 7 mmol/L 5 - 15 mmol/L [facility] Calcium [Mass/Vol] 9.0 mg/dL 8.5 - 10. 5 mg/dL [facility] Chloride [Moles/Vol] 95 mmol/L Low 98 - 109 mmol/L [facility] CO2 [Moles/Vol] 26 mmol/L 22 - 32 mmol/L [facility] Creatinine [Mass/Vol] 1.38 mg/dL High 0.60 - 1.30 mg/dL [facility] Comment on above: METHOD TRACEABLE TO [facility] STANDARD eGFR (CKD-EPI)non-race dependent 50 Low - PINF [facility] Comment on above: Reported eGFR is based on the CKD-EPI 2020 equation that does not use a race coefficient. Glucose [Mass/Vol] 83 mg/dL 65 - 99 mg/dL [facility] Interpretation and review of laboratory results Abnormal [facility] Potassium [Moles/Vol] 4.3 mmol/L 3.5 - 5.0 mmol/L [facility] Sodium [Moles/Vol] 128 mmol/L Low 134 - 146 mmol/L [facility] Urea nitrogen [Mass/Vol] 24 mg/dL 5 - 27 mg/dL [facility] CBC AND AUTO DIFFon 09-07-19 24 ACANTHOCYTE 1+ Abnormal NONE [facility] Comment on above: Performed By: #### C CATRACHITO, BMP #### [facility] ([id number]) [address], [address] [place] [address] LATIA 1+ Abnormal NONE [facility] Comment on above: Performed By: #### C CATRACHITO, BMP #### [facility] ([id number]) [address], [address] [place] [address] Eosinophils (Bld) [#/Vol] 0.5 10*3/uL High 0.0-0.4 [facility] Comment on above: Performed By: #### Jeronimo WINSTON, BMP #### [facility] ([id number]) [address], [address] [place] [address] Eosinophils/100 WBC (Bld) 2.0 % Normal [facility] Comment on above: Performed By: #### C BCA, BMP #### [facility] ([id number]) [address], [address] [place] [address] Erythrocyte distribution width (RBC) [Ratio] 14.3 % Normal 11.5-15.0 [facility] Comment on above: Performed By: #### C BCA, BMP #### [facility] ([id number]) [address], [address] [place] [address] Hematocrit (Bld) [Volume fraction] 33.4 % Low 39-49 [facility] Comment on above: Performed By: #### C CATRACHITO, BMP #### [facility] ([id number]) [address], [address] [place] [address] Hemoglobin (Bld) [Mass/Vol] 11.2 g/dL Low 13.0-17.0 [facility] Comment on above: Performed By: #### C CATRACHITO, BMP #### [facility] ([id number]) [address], [address] [place] [address] Lymphocytes (Bld) [#/Vol] 5.0 10*3/uL High 1.0-3.5 [facility] Comment on above: Performed By: #### C CATRACHITO, BMP #### [facility] ([id number]) [address], [address] [place] [address] Lymphocytes/100 WBC (Bld) 22.0 % Normal [facility] Comment on above: Performed By: #### C BCA, BMP #### [facility] ([id number]) [address], [address] [place] [address] MCH (RBC) [Entitic mass] 30.4 pg Normal 27-34 [facility] Comment on above: Performed By: #### C BCA, BMP #### [facility] ([id number]) [address], [address] [place] [address] MCHC (RBC) [Mass/Vol] 33.6 g/dL Normal 32-36 [facility] Comment on above: Performed By: #### C CATRACHITO, BMP #### [facility] ([id number]) [address], [address] [place] [address] MCV (RBC) [Entitic vol] 90 fL Normal 80-100 [facility] Comment on above: Performed By: #### C CATRACHITO, BMP #### [facility] ([id number]) [address], [address] [place] [address] Monocytes (Bld) [#/Vol] 1.8 10*3/uL High 0-0.9 [facility] Comment on above: Performed By: #### Jeronimo WINSTON, BMP #### [facility] ([id number]) [address], [address] [place] [address] Monocytes/100 WBC (Bld) 8.0 % Normal [facility] Comment on above: Performed By: #### C CATRACHITO, BMP #### [facility] ([id number]) [address], [address] [place] [address] MYELOCYTE 1.0 % Normal [facility] Comment on above: Performed By: #### Jeronimo WINSTON, BMP #### [facility] ([id number]) [address], [address] [place] [address] Neutrophils (Bld) [#/Vol] 15.0 10*3/uL High 1.5-6.6 [facility] Comment on above: Performed By: #### C CATRACHITO, BMP #### [facility] ([id number]) [address], [address] [place] [address] OVALOCYTE 1+ Abnormal NONE [facility] Comment on above: Performed By: #### C CATRACHITO, BMP #### [facility] ([id number]) [address], [address] [place] [address] Platelet mean volume (Bld) [Entitic vol] 9.4 fL Normal 7-12 [facility] Comment on above: Performed By: #### Jeronimo WINSTON, BMP #### [facility] ([id number]) [address], [address] [address] Platelets (Bld) [#/Vol] 234 10*3/uL Normal 150-450 [facility] Comment on above: Performed By: #### Jeronimo WINSTON, BMP #### [facility] ([id number]) [address], [facility] [address] [place] [address] RBC COUNT 3.70 X10E12/L Low 4.10-5.70 [facility] Comment on above: Performed By: #### Jeronimo WINSTON, BMP #### [facility] ([id number]) [address], [address] [address] SEG NEUTROPHIL 67.0 % Normal [facility] Comment on above: Performed By: #### Jeronimo WINSTON, BMP #### [facility] ([id number]) [address], [address] [address] WBC (Bld) [#/Vol] 22.5 10*3/uL High 4.0-11.0 [facility] Comment on above: Performed By: #### Jeronimo WINSTON, BMP #### [facility] ([id number]) [address], [address] [address] CBC auto differentialon 05-2 Acanthocytes LM Ql (Bld) 1+ Abnormal NONE^NONE [facility] Latia cells LM Ql (Bld) 1+ Abnormal NONE^NONE [facility] Eosinophils (Bld) [#/Vol] 0.5 10*3/uL High [facility] Eosinophils/100 WBC (Bld) 2.0 % [facility] Erythrocyte distribution width (RBC) [Ratio] 14.3 % 11.5 - 15.0 % [facility] Hematocrit (Bld) [Volume fraction] 33.4 % Low 39 - 49 % [facility] Hemoglobin (Bld) [Mass/Vol] 11.2 g/dL Low 13.0 - 17.0 g/dL [facility] Interpretation and review of laboratory results Abnormal [facility] Lymphocytes (Bld) [#/Vol] 5.0 10*3/uL High [facility] Lymphocytes/100 WBC (Bld) 22.0 % [facility] MCH (RBC) [Entitic mass] 30.4 pg 27 - 34 pg [facility] MCHC (RBC) [Mass/Vol] 33.6 g/dL 32 - 36 g/dL [facility] MCV (RBC) [Entitic vol] 90 fL 80 - 100 fL [facility] Monocytes (Bld) [#/Vol] 1.8 10*3/uL High [facility] Monocytes/100 WBC (Bld) 8.0 % [facility] Myelocytes/100 WBC (Bld) 1.0 % [facility] Neutrophils (Bld) [#/Vol] 15.0 10*3/uL High [facility] Ovalocytes LM Ql (Bld) 1+ Abnormal NONE^NONE [facility] Platelet mean volume (Bld) [Entitic vol] 9.4 fL 7 - 12 fL [facility] Platelets (Bld) [#/Vol] 234 10*3/uL [facility] RBC (Bld) [#/Vol] 3.70 10*6/uL Low [facility] Segmented neutrophils/100 WBC (Bld) 67.0 % [facility] WBC corrected for nucl RBC Auto (Bld) [#/Vol] 22.5 High [facility] XR CHEST 2 VWSon 07-05-2023 XR CHEST 2 VWS XR CHEST 2 VWS CHEST 2 VIEWS HISTORY: Bronchiectasis COMPARISON: CT chest 04/27/2023 IMPRESSION: * Extensive bronchiectasis in each lung with associated bronchial wall thickening, right worse than left. * No pleural effusions or pneumothorax. Finalized by Rabia Dias MD on 07/05/2023 7:54 AM Normal [facility] IGGon 06-09-2023 IgG [Mass/Vol] 826 mg/dL Normal 635-1741 [facility] Comment on above: Performed By: #### 2 465-3 #### [facility] ([id number]) [address], [address] [place] [address] COMPREHENSIVE METABOLIC PANE Frank 06-07-2023 Albumin [Mass/Vol] 3.7 g/dL Normal 3.2-5.3 [facility] Comment on above: Performed By: #### C MP #### [facility] ([id number]) [address], [address] [place] [address] ALP [Catalytic activity/Vol] 115 U/L Normal 39-130 [facility] Comment on above: Performed By: #### C MP #### [facility] ([id number]) [address], [address] [place] [address] ALT [Catalytic activity/Vol] 10 U/L Normal 0-40 [facility] Comment on above: Performed By: #### C MP #### [facility] ([id number]) [address], [address] [place] [address] Anion gap [Moles/Vol] 8 mmol/L Normal 5-15 [facility] Comment on above: Performed By: #### C MP #### [facility] ([id number]) [address], [address] [place] [address] AST [Catalytic activity/Vol] 16 U/L Normal 0-41 [facility] Comment on above: Performed By: #### C MP #### [facility] ([id number]) [address], [address] [place] [address] Bilirubin [Mass/Vol] 0.7 mg/dL Normal 0.3-1.2 [facility] Comment on above: Performed By: #### C MP #### [facility] ([id number]) [address], [address] [place] [address] Calcium [Mass/Vol] 9.1 mg/dL Normal 8.5-10.5 [facility] Comment on above: Performed By: #### C MP #### [facility] ([id number]) [address], [address] [place] [address] Chloride [Moles/Vol] 96 mmol/L Low 98-109 [facility] Comment on above: Performed By: #### C MP #### [facility] ([id number]) [address], [address] [place] [address] CO2 [Moles/Vol] 28 mmol/L Normal 22-32 [facility] Comment on above: Performed By: #### C MP #### [facility] ([id number]) [address] [address] [place] [address] Creatinine [Mass/Vol] 1.18 mg/dL Normal 0.60-1.30 [facility] Comment on above: Result Comment: METH OD TRACEABLE TO IDMS STANDARD Performed By: #### C MP #### [facility] ([id number]) [address] [address] [place] [address] GFR/1.73 sq M.predicted among non-blacks MDRD (S/P/Bld) [Vol rate/Area] 61 mL/min/{1.73_m2} Normal >59 [facility] Comment on above: Result Comment: Reported eGFR is based on the CKD-EPI 2020 equation that does not use a race coefficient. Performed By: #### C MP #### [facility] ([id number]) [address] [address] [place] [address] Glucose [Mass/Vol] 88 mg/dL Normal 65-99 [facility] Comment on above: Performed By: #### C MP #### [facility] ([id number]) [address] [address] [place] [address] Potassium [Moles/Vol] 3.8 mmol/L Normal 3.5-5.0 [facility] Comment on above: Performed By: #### C MP #### [facility] ([id number]) [address], [address] [place] [address] Protein [Mass/Vol] 6.0 g/dL Normal 6.0-8.0 [facility] Comment on above: Performed By: #### C MP #### [facility] ([id number]) [address], [address] [place] [address] Sodium [Moles/Vol] 132 mmol/L Low 134-146 [facility] Comment on above: Performed By: #### C MP #### [facility] ([id number]) [address], [address] [place] [address] Urea nitrogen [Mass/Vol] 20 mg/dL Normal 5-27 [facility] Comment on above: Performed By: #### C MP #### [facility] ([id number]) [address], [address] [place] [address] COMPLETE BLOOD COUNTon 05-24 Erythrocyte distribution width (RBC) [Ratio] 14.9 % Normal 11.5-15.0 [facility] Comment on above: Performed By: #### C BC #### [facility] ([id number]) [address] [place] [address] Hematocrit (Bld) [Volume fraction] 38.7 % Low 39-49 [facility] Comment on above: Performed By: #### C BC #### [facility] ([id number]) [address] [place] [address] Hemoglobin (Bld) [Mass/Vol] 12.5 g/dL Low 13.0-17.0 [facility] Comment on above: Performed By: #### C BC #### [facility] ([id number]) [address], [address] [place] [address] MCH (RBC) [Entitic mass] 29.6 pg Normal 27-34 [facility] Comment on above: Performed By: #### C BC #### [facility] ([id number]) [address], [address] [place] [address] MCHC (RBC) [Mass/Vol] 32.2 g/dL Normal 32-36 [facility] Comment on above: Performed By: #### C BC #### [facility] ([id number]) [address], [address] [place] [address] MCV (RBC) [Entitic vol] 92 fL Normal 80-100 [facility] Comment on above: Performed By: #### C BC #### [facility] ([id number]) [address], [address] [place] [address] Platelet mean volume (Bld) [Entitic vol] 9.5 fL Normal 7-12 [facility] Comment on above: Performed By: #### C BC #### [facility] ([id number]) [address], [address] [place] [address] Platelets (Bld) [#/Vol] 244 10*3/uL Normal 150-450 [facility] Comment on above: Performed By: #### C BC #### [facility] ([id number]) [address], [address] [place] [address] RBC COUNT 4.21 X10E12/L Normal 4.10-5.70 [facility] Comment on above: Performed By: #### C BC #### [facility] ([id number]) [address], [address] [place] [address] WBC (Bld) [#/Vol] 23.5 10*3/uL High 4.0-11.0 [facility] Comment on above: Performed By: #### C BC #### [facility] ([id number]) [address] [place] [address] COMPREHENSIVE METABOLIC PANE Frank 05-24-2023 Albumin [Mass/Vol] 3.8 g/dL Normal 3.2-5.3 [facility] Comment on above: Performed By: #### C ROMINA, 05918-8 #### [facility] ([id number]) [address] [place] [address] ALP [Catalytic activity/Vol] 112 U/L Normal 39-130 [facility] Comment on above: Performed By: #### Jeronimo VANEGAS, 15520-4 #### [facility] ([id number]) [address] [place] [address] ALT [Catalytic activity/Vol] 10 U/L Normal 0-40 [facility] Comment on above: Performed By: #### Jeronimo VANEGAS, 26259-3 #### [facility] ([id number]) [address], [address] [place] [address] Anion gap [Moles/Vol] 6 mmol/L Normal 5-15 [facility] Comment on above: Performed By: #### Jeronimo VANEGAS, 50427-9 #### [facility] ([id number]) [address], [address] [place] [address] AST [Catalytic activity/Vol] 17 U/L Normal 0-41 [facility] Comment on above: Performed By: #### Jeronimo VANEGAS, 88799-9 #### [facility] ([id number]) [address], [address] [place] [address] Bilirubin [Mass/Vol] 0.8 mg/dL Normal 0.3-1.2 [facility] Comment on above: Performed By: #### Jeronimo VANEGAS, 08105-2 #### [facility] ([id number]) [address] [place] [address] Calcium [Mass/Vol] 9.6 mg/dL Normal 8.5-10.5 [facility] Comment on above: Performed By: #### Jeronimo VANEGAS, 49711-8 #### [facility] ([id number]) [address] [place] [address] Chloride [Moles/Vol] 97 mmol/L Low 98-109 [facility] Comment on above: Performed By: #### Jeronimo VANEGAS, 99953-6 #### [facility] ([id number]) [address], [address] [place] [address] CO2 [Moles/Vol] 30 mmol/L Normal 22-32 [facility] Comment on above: Performed By: #### Jeronimo VANEGAS, 56972-9 #### [facility] ([id number]) [address] [place] [address] Creatinine [Mass/Vol] 1.22 mg/dL Normal 0.60-1.30 [facility] Comment on above: Result Comment: METH OD TRACEABLE TO IDMS STANDARD Performed By: #### Jeronimo VANEGAS, 66835-3 #### [facility] ([id number]) [address], [facility] [address] [place] [address] GFR/1.73 sq M.predicted among non-blacks MDRD (S/P/Bld) [Vol rate/Area] 58 mL/min/{1.73_m2} Low >59 [facility] Comment on above: Result Comment: Reported eGFR is based on the CKD-EPI 1 equation that does not use a race coefficient. Performed By: #### Jeronimo VANEGAS, 73114-4 #### [facility] ([id number]) [address] [place] [address] Glucose [Mass/Vol] 94 mg/dL Normal 65-99 [facility] Comment on above: Performed By: #### Jeronimo VANEGAS, 85751-4 #### [facility] ([id number]) [address], [address] [place] [address] Potassium [Moles/Vol] 4.1 mmol/L Normal 3.5-5.0 [facility] Comment on above: Performed By: #### Jeronimo VANEGAS, 07821-2 #### [facility] ([id number]) [address], [address] [place] [address] Protein [Mass/Vol] 6.7 g/dL Normal 6.0-8.0 [facility] Comment on above: Performed By: #### Jeronimo VANEGAS, 22076-6 #### [facility] ([id number]) [address], [address] [place] [address] Sodium [Moles/Vol] 133 mmol/L Low 134-146 [facility] Comment on above: Performed By: #### Jeronimo VANEGAS, 12875-2 #### [facility] ([id number]) [address], [address] [place] [address] Urea nitrogen [Mass/Vol] 17 mg/dL Normal 5-27 [facility] Comment on above: Performed By: #### Jeronimo VANEGAS, 20141-7 #### [facility] ([id number]) [address], [address] [place] [address] Comprehensive metabolic pane frank 05-24-2023 Albumin [Mass/Vol] 3.8 g/dL 3.2 - 5.3 g/dL [facility] ALP [Catalytic activity/Vol] 112 U/L 39 - 130 U/L [facility] ALT No additional P-5'-P [Catalytic activity/Vol] 10 U/L 0 - 40 U/L [facility] Anion gap [Moles/Vol] 6 mmol/L 5 - 15 mmol/L [facility] AST [Catalytic activity/Vol] 17 U/L 0 - 41 U/L [facility] Bilirubin [Mass/Vol] 0.8 mg/dL 0.3 - 1.2 mg/dL [facility] Calcium [Mass/Vol] 9.6 mg/dL 8.5 - 10. 5 mg/dL [facility] Chloride [Moles/Vol] 97 mmol/L Low 98 - 109 mmol/L [facility] CO2 [Moles/Vol] 30 mmol/L 22 - 32 mmol/L [facility] Creatinine [Mass/Vol] 1.22 mg/dL 0.60 - 1.30 mg/dL [facility] Comment on above: METHOD TRACEABLE TO [facility] STANDARD eGFR (CKD-EPI)non-race dependent 58 Low - PINF [facility] Comment on above: Reported eGFR is based on the CKD-EPI 2020 equation that does not use a race coefficient. Glucose [Mass/Vol] 94 mg/dL 65 - 99 mg/dL [facility] Potassium [Moles/Vol] 4.1 mmol/L 3.5 - 5.0 mmol/L [facility] Protein [Mass/Vol] 6.7 g/dL 6.0 - 8.0 g/dL [facility] Sodium [Moles/Vol] 133 mmol/L Low 134 - 146 mmol/L [facility] Urea nitrogen [Mass/Vol] 17 mg/dL 5 - 27 mg/dL [facility] Lipid 1996 panelon 4 Cholesterol [Mass/Vol] 98 mg/dL Low 150 - 200 mg/dL [facility] Cholesterol in HDL [Mass/Vol] 45 mg/dL 39 - PINF mg/dL [facility] Comment on above: HDL <40 mg/dL - High Risk HDL > or = 40mg/dL- Desirable HDL >60 mg/dL - Negative Risk Cholesterol in LDL [Mass/Vol] 40 mg/dL NINF - 130 mg/dL [facility] Comment on above: LDL <100 mg/dL - Desirable LDL >160 mg/dL - High Risk Cholesterol in VLDL [Mass/Vol] 13 mg/dL 0 - 30 mg/dL [facility] Cholesterol.total/ Cholesterol in HDL [Mass ratio] 2.2 {ratio} 1.0 - 5.0 [facility] Triglyceride [Mass/Vol] 63 mg/dL 27 - 150 mg/dL [facility] Cholesterol [Mass/Vol] 98 mg/dL Low 150-200 [facility] Comment on above: Performed By: #### Jeronimo VANEGAS, [address]-4 #### [facility] ([id number]) [address], [address] [place] [address] Cholesterol in HDL [Mass/Vol] 45 mg/dL Normal >39 [facility] Comment on above: Result Comment: HDL <40 mg/dL - High Risk HDL > or = 40mg/dL- Desirable HDL >60 mg/dL - Negative Risk Performed By: #### Jeronimo VANEGAS, 92797-7 #### [facility] ([id number]) [address], [address] [place] [address] Cholesterol in LDL [Mass/Vol] 40 mg/dL Normal <130 [facility] Comment on above: Result Comment: LDL <100 mg/dL - Desirable LDL >160 mg/dL - High Risk Performed By: #### Jeronimo VANEGAS, 01637-5 #### [facility] ([id number]) [address], [address] [place] [address] Cholesterol in VLDL [Mass/Vol] 13 mg/dL Normal 0-30 [facility] Comment on above: Performed By: #### Jeronimo VANEGAS, 87960-3 #### [facility] ([id number]) [address], [address] [place] [address] CHOLESTEROL:HDL 2.2 Normal 1.0-5.0 [facility] Comment on above: Performed By: #### C ROMINA, 96025-5 #### [facility] ([id number]) [address], [address] [place] [address] Triglyceride [Mass/Vol] 63 mg/dL Normal 27-150 [facility] Comment on above: Performed By: #### C ROMINA, 60371-6 #### [facility] ([id number]) [address], [address] [place] [address] No Panel Informationon 05-24 Interpretation and review of laboratory results Abnormal [facility] IGGon 05-05-2023 IgG [Mass/Vol] 748 mg/dL Normal 635-1741 [facility] Comment on above: Performed By: #### 2 465-3 #### [facility] ([id number]) [address], [address] [place] [address] Comprehensive metabolic 2000 panelon 02-02-2023 Albumin [Mass/Vol] 3.9 g/dL 3.9 - 4.9 g/dL [facility] ALP [Catalytic activity/Vol] 107 U/L 38 - 113 U/L [facility] ALT [Catalytic activity/Vol] 8 U/L Low 10 - 54 U/L [facility] Anion gap [Moles/Vol] 5 mmol/L Low 9 - 18 mmol/L [facility] AST [Catalytic activity/Vol] 14 U/L 14 - 40 U/L [facility] Bilirubin [Mass/Vol] 0.5 mg/dL 0.2 - 1.3 mg/dL [facility] Calcium [Mass/Vol] 9.0 mg/dL 8.5 - 10. 2 mg/dL [facility] Chloride [Moles/Vol] 97 mmol/L 97 - 105 mmol/L [facility] CO2 [Moles/Vol] 28 mmol/L 22 - 30 mmol/L [facility] Creatinine [Mass/Vol] 1.26 mg/dL High 0.73 - 1.22 mg/dL [facility] Estimated Glomerular Filtration Rate 56 mL/min/1.73m Low >=60 mL/min/1.73m [facility] Glucose [Mass/Vol] 99 mg/dL 74 - 99 mg/dL [facility] Potassium [Moles/Vol] 4.1 mmol/L 3.7 - 5.1 mmol/L [facility] Protein [Mass/Vol] 6.4 g/dL 6.3 - 8.0 g/dL [facility] Sodium [Moles/Vol] 130 mmol/L Low 136 - 144 mmol/L [facility] Urea nitrogen [Mass/Vol] 20 mg/dL 9 - 24 mg/dL [facility] LD LACTATE DEHYDROon 023 LDH [Catalytic activity/Vol] 124 U/L Low 135 - 225 U/L [facility] Office Visiton 11-12-2022 Follow-up visit Diagnoses/Problems 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) Asthma, unspecified asthma severity, unspecified whether complicated, unspecified whether persistent (493.90) (J45.909) Chronic sinusitis (473.9) (J32.9) Bronchiectasis (494.0) (J47.9) CKD (chronic kidney disease) (585.9) (N18.9) Orders Asthma, unspecified asthma severity, unspecified whether complicated, unspecified whether persistent Asthma Control Flowsheet; Status:Complete; Done: [id number] Bronchiectasis, CVID (common variable immunodeficiency) Immunoglobulin G Level, Serum; Status:Active; Requested for:[id number]; Chronic sinusitis Start: Nasacort Allergy 24HR 55 MCG/ACT Nasal Aerosol; INSTILL 2 SPRAY Daily CKD (chronic kidney disease) Comprehensive Metabolic Panel; Status:Active; Requested for:[id number]; Patient Discussion/Summary Continue Hizentra infusions. Have IgG [...] sure to look down while using it. Mena slightly away from the direction of your [...] direction and in the presence of Sweetie Pop MD. All medical record entries made by [...] per Dr. Jacobson. I recommend followup with Dr. [...] followup scheduled He continues Xarelto 20 per correspondence analyst but questions if this raises a bleeding [...] Problems Asthma (more content not included)... Normal [facility] Office Visiton 08-06-2022 Follow-up visit Diagnoses/Problems Asthma, [...] direction and in the presence of Sweetie Pop MD. All medical record entries made by [...] consent was requested and obtained from RASHAD MCNAIR on this date, 08/06/2022 10:15 AM , [...] start fluticasone. He continues Hizentra infusions from [employer], which are going well with no SE. [...] (V15.82) (Z87.891) (more content not included)... Normal [facility] ACID FAST SMEAR AND CXon 03- 13-2023 Acid Fast Culture Negative Normal [facility] Comment on above: Result Comment: No a marshall fast bacilli isolated after 6 weeks. Performed By: #### A FB #### [facility] [address] [place], [place] [address] Dr. Nadeen Broderick Acid Fast Smear Negative Normal [facility] Comment on above: Performed By: #### A FB #### [facility] [address] [place], [place] [address] Dr. Nadeen Broderick [employer] Specimen Processing Concentration Normal [facility] Comment on above: Performed By: #### A FB #### [facility] [address] [place], [place] [address] Dr. Nadeen Broderick Chart Updateon 06-10-2022 Chart [...] scan of the chest ordered by his electric motor fitter Dr. Jacobson (in [facility]) I requested repeat CBC for 06/21/2022 but will defer if other overlapping blood tests or testing requested by PCP 1 1 Amended By: Rodriguez Quiroz; Jun 10 2022 11:29 AM ESTSignatures Electronically signed by : Rodriguez Quiroz MD; Jun 10 2022 11:31AM EST (Author) Normal [facility] FUNGAL CULTUREon 06-02-2022 Fungus (Mycology) Culture Final report Normal [facility] Comment on above: Performed By: #### C XFUN #### [facility] [address] [place] [address] [address] Nadeen Broderick Fungus Stain Final report Normal [facility] Comment on above: Performed By: #### C XFUN #### [facility] [address] [address] [address] Nadeen Broderick Result 1 Comment Normal [facility] Comment on above: Result Comment: LAILA/ Calcofluor preparation: no fungus observed. Performed By: #### C XFUN #### [facility] [address] [place] [address] Dr. Nadeen Broderick Result Comment: No y east or mold isolated after 4 weeks. RESPIRATORY CF CULTURE,BACTE RIAL.on 05-21-2022 RESPIRATORY CF CULTURE,BACTERIAL. PATIENT: RASHAD MCNAIR LOCATION: [address] BILL#: [id number] : 36 AGE: SEX: M ORDERED BY: [...] DEPENDENT NS=NONSUSCEPTIBLE X=REPORTED IN ERROR ___ Normal [facility] Comment on above: Performed By: #### R ESCF #### [facility] [address] [place] [address] Chart Updateon 05-19-2022 Chart Update Chart Update [...] on 05/21/2022. Requisition sent to laboratory at [facility]. Patient will collect sputum today prior to starting levofloxacin 2. Levofloxacin 500 mg daily x10 days. Prescription sent electronically 3. Repeat CBC plus differential and basic metabolic panel on 05/31/2022. Order placed in computer. [facility] in [facility] LAB phone [phone]) LAB FAX for [facility] ([phone]) LAB number [id number] 4. Phone follow-up in 1 week or earlier if necessary 5. 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 We will discuss results afterwards. We [...] Will send note to Dr. Jacobson at [facility] in [place], [place] FAX [phone] Signatures Electronically signed by : Rodriguez Quiroz MD; May 18 2022 12:35PM EST (Author) Normal [facility] Chart Updateon 05-10-2022 Chart Update Chart Update [...] 05/03/2022 as part of evaluation with new electric motor fitter. Patient reports new evaluation regarding possible new lesion/? Mass/? Infiltrate in the right lower lobe. Patient underwent bronchoscopy. No procedural or culture details known. Patient had no additional news and has follow-up with pulmonology in [facility] on 05/11/2022. NEW electric motor fitter, Dr. Rabia Jacobson Post-bronchoscopy leukocytosis I asked the patient to relay WBC count to Dr. Jacobson Would recommend repeat CBC plus differential in 1 week on 05/17/2022. Pulmonary could order at local hospital for patient convenience (patient goes to [facility] in [facility]) Patient will call and let me know if we need to order and send fax to [facility] if pulmonary unable to do so I faxed a copy of white blood cell count report to pulmonary at [phone] (Dr. Jacobson) Signatures Electronically signed by : Rodriguez Quiroz MD; May 10 2022 2:37PM EST (Author) Normal [facility] CBC AND DIFFERENTIALon 05-07 % AUTOMATED IMMATURE GRAN 1.8 % High 0.0 - 0.9 [facility] Comment on above: Result Comment: Acacia ture Granulocyte Count (IG) includes promyelocytes, myelocytes and metamyelocytes but does not include bands. Percent differential counts (%) should be interpreted in the context of the absolute cell counts (cells/L). Performed By: #### C BCDF #### [address] [id number] DIFFERENTIAL SEE MANUAL DIFF Normal [facility] Comment on above: Performed By: #### C BCDF #### [address] [id number] Erythrocyte distribution width (RBC) [Ratio] 14.6 % High 11.5 - 14.5 [facility] Comment on above: Performed By: #### C BCDF #### [address] [id number] Hematocrit (Bld) [Volume fraction] 34.7 % Low 41.0 - 52.0 [facility] Comment on above: Performed By: #### C BCDF #### [address] [id number] Hemoglobin (Bld) [Mass/Vol] 11.0 g/dL Low 13.5 - 17.5 [facility] Comment on above: Performed By: #### C BCDF #### [address] [id number] MCHC (RBC) [Mass/Vol] 31.7 g/dL Low 32.0 - 36.0 [facility] Comment on above: Performed By: #### C BCDF #### [address] [id number] MCV (RBC) [Entitic vol] 92 fL Normal 80 - 100 [facility] Comment on above: Performed By: #### C BCDF #### [address] [id number] Platelets (Bld) [#/Vol] 376 10*3/uL Normal 150 - 450 [facility] Comment on above: Performed By: #### C BCDF #### [address] [id number] RBC 3.77 x10E12/L Low 4.50 - 5.90 [facility] Comment on above: Performed By: #### C BCDF #### [address] [id number] WBC (Bld) [#/Vol] 34.0 10*3/uL High 4.4 - 11.3 [facility] Comment on above: Performed By: #### C BCDF #### [address] [id number] COMPREHENSIVE PANELon 2022 Albumin [Mass/Vol] 3.6 g/dL Normal 3.4 - 5.0 [facility] Comment on above: Performed By: #### C MP #### [address] [id number] ALP [Catalytic activity/Vol] 94 U/L Normal 33 - 136 [facility] Comment on above: Performed By: #### C MP #### [address] [id number] ALT [Catalytic activity/Vol] 12 U/L Normal 10 - 52 [facility] Comment on above: Result Comment: Cathy ents treated with Sulfasalazine may generate falsely decreased results for ALT. Performed By: #### C MP #### [address] [id number] Anion gap [Moles/Vol] 12 mmol/L Normal 10 - 20 [facility] Comment on above: Performed By: #### C MP #### [address] [id number] AST [Catalytic activity/Vol] 14 U/L Normal 9 - 39 [facility] Comment on above: Performed By: #### C MP #### [address] [id number] Bilirubin [Mass/Vol] 0.6 mg/dL Normal 0.0 - 1.2 [facility] Comment on above: Performed By: #### C MP #### [address] [id number] Calcium [Mass/Vol] 8.8 mg/dL Normal 8.6 - 10.3 [facility] Comment on above: Performed By: #### C MP #### [address] [id number] Chloride [Moles/Vol] 95 mmol/L Low 98 - 107 [facility] Comment on above: Performed By: #### C MP #### [address] [id number] Creatinine [Mass/Vol] 1.33 mg/dL High 0.50 - 1.30 [facility] Comment on above: Performed By: #### C MP #### [address] [id number] GFR/1.73 sq M.predicted among non-blacks MDRD (S/P/Bld) [Vol rate/Area] 53 mL/min/{1.73_m2} Abnormal >90 [facility] Comment on above: Result Comment: CALC ULATIONS OF ESTIMATED GFR ARE PERFORMED USING THE 2020 CKD-EPI STUDY REFIT EQUATION WITHOUT THE RACE VARIABLE FOR THE IDMS-TRACEABLE CREATININE METHODS. https://jasn.asnjournals.org/content/early//ASN.291850734 8 Performed By: #### C MP #### [address] [id number] Glucose [Mass/Vol] 72 mg/dL Low 74 - 99 [facility] Comment on above: Performed By: #### C MP #### [address] [id number] HCO3 (Bld) [Moles/Vol] 28 mmol/L Normal 21 - 32 [facility] Comment on above: Performed By: #### C MP #### [address] [id number] Potassium [Moles/Vol] 3.9 mmol/L Normal 3.5 - 5.3 [facility] Comment on above: Performed By: #### C MP #### [address] [id number] Protein [Mass/Vol] 6.1 g/dL Low 6.4 - 8.2 [facility] Comment on above: Performed By: #### C MP #### [address] [id number] Sodium [Moles/Vol] 131 mmol/L Low 136 - 145 [facility] Comment on above: Performed By: #### C MP #### [address] [id number] Urea nitrogen [Mass/Vol] 22 mg/dL Normal 6 - 23 [facility] Comment on above: Performed By: #### C MP #### [address] [id number] Complete Blood Count + Diffe rentialon 05-07-2022 [...] [Mass/Vol] 778 mg/dL Normal 700 - 1600 [facility] Comment on above: Result Comment: MONO CLONAL PROTEINS MAY CAUSE FALSELY LOW RESULTS IN THIS ASSAY. SERUM PROTEIN ELECTROPHORESIS SHOULD BE DONE THE FIRST TEST TO EVALUATE MONOCLONAL GAMMOPATHY. Performed By: #### I GG #### [facility] [address] [place] [address] Immunoglobulin G Level, Seru mon 05-07-2022 IgG [...] BASOPHIL 0.0 % Normal 0.0 - 2.0 [facility] Comment on above: Performed By: #### M DIFF #### [address] [id number] % EOSINOPHIL 0.0 % Normal 0.0 - 6.0 [facility] Comment on above: Performed By: #### M DIFF #### [address] [id number] % LYMPHOCYTE 16.0 % Normal 13.0 - 44.0 [facility] Comment on above: Performed By: #### M DIFF #### [address] [id number] % MONOCYTE 9.0 % Normal 2.0 - 10.0 [facility] Comment on above: Performed By: #### M DIFF #### [address] [id number] % SEG NEUTROPHIL 75.0 % Normal 40.0 - 80.0 [facility] Comment on above: Result Comment: Perc ent differential counts (%) should be interpreted in the context of the absolute cell counts (cells/L). Performed By: #### M DIFF #### [address] [id number] ANC 25.50 x10E9/L High 1.60 - 5.50 [facility] Comment on above: Performed By: #### M DIFF #### [address] [id number] BASOPHIL 0.00 x10E9/L Normal 0.00 - 0.10 [facility] Comment on above: Performed By: #### M DIFF #### [address] [id number] EOSINOPHIL 0.00 x10E9/L Normal 0.00 - 0.40 [facility] Comment on above: Performed By: #### M DIFF #### [facility] [address] [place], [place] [id number] LYMPHOCYTE 5.44 x10E9/L High 0.80 - 3.00 [facility] Comment on above: Performed By: #### M DIFF #### [facility] [address] [place], [place] [id number] MONOCYTE 3.06 x10E9/L High 0.05 - 0.80 [facility] Comment on above: Performed By: #### M DIFF #### [facility] [address] [place], [place] [id number] SEG NEUTROPHIL 25.50 x10E9/L High 1.60 - 5.00 [facility] Comment on above: Performed By: #### M DIFF #### [address] [id number] No Panel Informationon 05-07 25.50 {x10E9/L} above [...] RACE VARIABLE FOR THE IDMS-TRACEABLE CREATININE METHODS.https://jasn.asnjournals.org/content/early//ASN.2 728466167 Office Visiton 05-07-2022 Follow-up visit Diagnoses/Problems Bronchiectasis [...] to think mucus but will check with Ends Down Checker first. I will review CT chest once I obtain results from his PCP. Follow up in 3 months or sooner if symptoms worsen prior. By signing my name below, I, Arabella Jun Singh, attest that this documentation has been prepared under the direction and in the presence of Sweetie Pop MD. All medical record entries made by the Jun were at my direction and personally dictated [...] thin his mucus but will check with Ends Down Checker first. [facility] I will review CT chest [...] A had persistent Sx and saw a electric motor fitter at [facility], Dr. Rabia Jacobson, who performed bronchoscopy this [...] RED CELL MORPHOLOGYon 2022 ACANTHOCYTES Few Normal [facility] Comment on above: Performed By: #### M ORP2 #### [address] [id number] LATIA CELLS Few Normal [facility] Comment on above: Performed By: #### M ORP2 #### [address] [id number] OVALOCYTES Few Normal [facility] Comment on above: Performed By: #### M ORP2 #### [address] [id number] RBC morphology finding Nom (Bld) See Below Normal [facility] Comment on above: Performed By: #### M ORP2 #### [address] [id number] TOBRAMYCINon 05-07-2022 TOBRAMYCIN 0.6 ug/mL Normal [facility] Comment on above: Result Comment: . Th erapeutic Ranges: Peak: 4.0-10.0 ug/mL . Trough: 0.0- 2.0 ug/mL Performed By: #### T OBRU #### [facility] [address] [place] [address] Tobramycin Level, Randomon 0 05-07-2022 Tobramycin [Mass/Vol] 0.6 ug/mL [facility]-Infectious Disease-Spec Immun Unit Work Phone: Comment on above: . Therapeutic Ranges : Peak: 4.0-10.0 ug/mL. Trough: 0.0- 2.0 ug/mL CULTURE OTHERon 05-03-2022 CULTURE OTHER Culture Observations : Susceptibility testing performed by [facility]. See report scanned in [employer]. Isolate 1 Pseudomonas aeruginosa Light growth of Normal [facility] Comment on above: Performed By: #### O THCX #### [facility] [address] [place] [address] Dr. Nadeen Broderick CYTOLOGYon 05-03-2022 SENT TO REF LAB 05/03/2022 Normal [facility] Comment on above: Performed By: #### C YTO #### [facility] [address] [place] [address] Dr. Nadeen Broderick GRAM STAINon 05-03-2022 COMMENTS NO ORGANISMS OBSERVED Normal [facility] Comment on above: Performed By: #### G STAIN #### [facility] [address] [place] [address] Dr. Nadeen Broderick DIPHTHEROIDS Normal [facility] Comment on above: Performed By: #### G STAIN #### [facility] [address] [place] [address] [address] Nadeen Broderick EPITHELIALS RARE Normal [facility] Comment on above: Performed By: #### G STAIN #### [facility] [address] [address] [address] Nadeen Broderick FUNGAL ELEMENTS Normal [facility] Comment on above: Performed By: #### G STAIN #### [facility] [address] [address] [address] Nadeen Broderick GRAM NEG BACILLI [facility] Comment on above: Performed By: #### G STAIN #### [facility] [address] [address] [address] Nadeen Broderick GRAM NEG DIPPLOCOCCI [facility] Comment on above: Performed By: #### G STAIN #### [facility] [address] [address] [address] Nadeen Broderick GRAM POS BACILLI [facility] Comment on above: Performed By: #### G STAIN #### [facility] [address] [address] [address] Nadeen Broderick GRAM POSITIVE COCCI Normal [facility] Comment on above: Performed By: #### G STAIN #### [facility] [address] [address] [address] Nadeen Broderick GRAM STAIN SOURCE R. LOWER LOBE LAVAGE Normal [facility] Comment on above: Performed By: #### G STAIN #### [facility] [address] [address] [address] Nadeen Broderick GS_DIPTH Normal [facility] Comment on above: Performed By: #### G STAIN #### [facility] [address] [place] [address] [address] Nadeen Broderick WBC MODERATE Normal [facility] Comment on above: Performed By: #### G STAIN #### [facility] [address] [address] [address] Nadeen Broderick CBC W MANUAL DIFFon 04-30-19 23 ATYPICAL LYMPH # 1.30 103/ul Normal [facility] Comment on above: Performed By: #### C CAMILLE #### [facility] [address] [address] [address] Nadeen Broderick ATYPICAL LYMPH % 5 % Normal [facility] Comment on above: Performed By: #### C CAMILLE #### [facility] [address] [place] [address] Dr. Nadeen Broderick BAND # 0.0 103/ul Normal 0.0-0.3 [facility] Comment on above: Performed By: #### C CAMILLE #### [facility] [address] [place] [address] Dr. Nadeen Broderick BAND % 0 % Normal 0-5 [facility] Comment on above: Performed By: #### C CAMILLE #### [facility] [address] [place] [address] Dr. Nadeen Broderick BASOM # 0.00 103/ul Normal 0.00-0.10 [facility] Comment on above: Performed By: #### C CAMILLE #### [facility] [address] [place] [address] Dr. Nadeen Broderick BASOM % 0.0 % Critically low 0.2-2.0 [facility] Comment on above: Performed By: #### C CAMILLE #### [facility] [address] [place] [address] Dr. Nadeen Broderick BLAST # Normal [facility] Comment on above: Performed By: #### C CAMILLE #### [facility] [address] [place] [address] Dr. Nadeen Broderick BLAST % Normal [facility] Comment on above: Performed By: #### C CAMILLE #### [facility] [address] [place] [address] Dr. Nadeen Broderick CORRECTED WBC Normal 4.0-11.0 [facility] Comment on above: Performed By: #### C CAMILLE #### [facility] [address] [place] [address] Dr. Nadeen Broderick EOS # 0.26 103/ul Normal 0.00-0.70 [facility] Comment on above: Performed By: #### C CAMILLE #### [facility] [address] [address] [address] Nadeen Broderick EOS% 1.0 % Normal 0.9-7.0 [facility] Comment on above: Performed By: #### C CAMILLE #### [facility] [address] [address] [address] Nadeen Broderick HCT 28.5 % Critically low 42.0-54.0 [facility] Comment on above: Performed By: #### C CAMILLE #### [facility] [address] [address] [address] Nadeen Broderick HGB 10.3 g/dl Critically low 14.0-18.0 [facility] Comment on above: Performed By: #### C CAMILLE #### [facility] [address] [address] [address] Nadeen Broderick LYMPHM # 4.96 103/ul Critically high 1.20-3.80 [facility] Comment on above: Performed By: #### C CAMILLE #### [facility] [address] [address] [address] Nadeen Broderick LYMPHM% 19.0 % Critically low 20.5-60.0 [facility] Comment on above: Performed By: #### C CAMILLE #### [facility] [address] [address] [address] Nadeen Broderick MCH 29.4 pg Normal 25.9-34.0 [facility] Comment on above: Performed By: #### C CAMILLE #### [facility] [address] [address] [address] Nadeen Broderick MCHC 36.1 g/dl Critically high 29.9-35.2 [facility] Comment on above: Performed By: #### C CAMILLE #### [facility] [address] [address] [address] Nadeen Broderick MCV 81.4 fL Normal 80.0-94.0 [facility] Comment on above: Performed By: #### C CAMILLE #### [facility] [address] [place] [address] Dr. Nadeen Broderick METAMYELOCYTE # Normal [facility] Comment on above: Performed By: #### C CAMILLE #### [facility] [address] [place] [address] Dr. Nadeen Broderick METAMYELOCYTE % Normal [facility] Comment on above: Performed By: #### C CAMILLE #### [facility] [address] [place] [address] Dr. Nadeen Broderick MONOM# 2.61 103/ul Critically high 0.30-0.80 [facility] Comment on above: Performed By: #### C CAMILLE #### [facility] [address] [place] [address] Dr. Nadeen Broderick MONOM% 10.0 % Normal 1.7-12.0 [facility] Comment on above: Performed By: #### C CAMILLE #### [facility] [address] [place] [address] Dr. Nadeen Broderick MPV 9.1 fL Critically low 9.5-13.5 [facility] Comment on above: Performed By: #### C CAMILLE #### [facility] [address] [place] [address] Dr. Nadeen Broderick MYELOCYTE # Normal [facility] Comment on above: Performed By: #### C CAMILLE #### [facility] [address] [place] [address] Dr. Nadeen Broderick MYELOCYTE % Normal [facility] Comment on above: Performed By: #### C CAMILLE #### [facility] [address] [place] [address] Dr. Nadeen Broderick NRBC Normal [facility] Comment on above: Performed By: #### C CAMILLE #### [facility] [address] [place] [address] Dr. Nadeen Broderick PLT 320 103/ul Normal 150-450 [facility] Comment on above: Performed By: #### C CAMILLE #### [facility] [address] [place] [address] Dr. Nadeen Broderick RBC 3.50 106/ul Critically low 4.70-6.10 [facility] Comment on above: Performed By: #### C BCMAN #### [facility] [address] [address] [address] Nadeen Broderick RDW 13.3 % Normal 11.0-15.0 [facility] Comment on above: Performed By: #### C BCMAN #### [facility] [address] [place], [place] [address] Dr. Nadeen Broderick SEG # 16.96 103/ul Critically high 1.40-6.50 [facility] Comment on above: Performed By: #### C BCMAN #### [facility] [id number] Nadeen Broderick SEG % 65.0 % Normal 43.0-75.0 [facility] Comment on above: Performed By: #### C BCMAN #### [facility] [address] [address] [address] Nadeen Broderick WBC 26.1 103/ul Critically high 4.0-11.0 [facility] Comment on above: Performed By: #### C BCMAN #### [facility] [address] [place], [place] [address] Dr. Nadeen Broderick Covid-19 PCR ([facility])on 04-12 SARS-CoV-2 (COVID-19) RNA PERLITA+probe Ql (Unsp spec) Not detected Normal NOT DETECTED [facility] Comment on above: Result Comment: This test is not yet approved or cleared by the [place] FDA. When there are no FDA-approved or cleared tests available, and other criteria are met, FDA can make tests available under an emergency access mechanism called an Emergency Use Authorization (EUA). The EUA for this test is supported by the [place] of Health and Human Service's (HHS's) declaration [...] SARS-CoV-2. Performed By: #### C VDTB #### [facility] [address] [place] [address] Dr. Nadeen Broderick PROF CHEM 8 (BAS METB)on Anion gap [Moles/Vol] 12.4 mmol/L Normal [facility] Comment on above: Performed By: #### B MP #### [facility] [address] [place] [address] Dr. Nadeen Broderick Calcium [Mass/Vol] 9.0 mg/dL Normal 8.5-10.1 [facility] Comment on above: Performed By: #### B MP #### [facility] [address] [place] [address] Dr. Nadeen Broderick Chloride [Moles/Vol] 97 mmol/L Critically low 98-107 [facility] Comment on above: Performed By: #### B MP #### [facility] [address] [place] [address] Dr. Nadeen Broderick CO2 [Moles/Vol] 27.1 mmol/L Normal 21.0-32.0 [facility] Comment on above: Performed By: #### B MP #### [facility] [address] [place] [address] Dr. Nadeen Broderick Creatinine [Mass/Vol] 1.54 mg/dL Critically high 0.70-1.30 [facility] Comment on above: Performed By: #### B MP #### [facility] [address] [place] [address] Dr. Nadeen Broderick EGFR-AF SWISS 53 mL/min/1.73m2 Critically low >=60 [facility] Comment on above: Performed By: #### B MP #### [facility] [address] [place] [address] Dr. Nadeen Broderick EGFR-NON AF SWISS 43 mL/min/1.73m2 Critically low >=60 [facility] Comment on above: Performed By: #### B MP #### [facility] [address] [address] [address] Nadeen Broderick Glucose [Mass/Vol] 106 mg/dL Normal 74-106 [facility] Comment on above: Performed By: #### B MP #### [facility] [address] [address] [address] Nadeen Broderick Potassium [Moles/Vol] 3.5 mmol/L Normal 3.5-5.1 [facility] Comment on above: Performed By: #### B MP #### [facility] [address] [address] [address] Nadeen Broderick Sodium [Moles/Vol] 133 mmol/L Critically low 136-145 [facility] Comment on above: Performed By: #### B MP #### [facility] [address] [place] [address] Dr. Nadeen Broderick Urea nitrogen [Mass/Vol] 26.0 mg/dL Critically high 7.0-18.0 [facility] Comment on above: Performed By: #### B MP #### [facility] [address] [address] [address] Nadeen Broderick Urea nitrogen/Creatinin e [Mass ratio] 16.9 mg/mg Normal [facility] Comment on above: Performed By: #### B MP #### [facility] [address] [place] [address] Dr. Nadeen Broderick PROTIMEon 04-30-2022 INR Coag (PPP) [Relative time] 1.29 {INR} Normal [facility] Comment on above: Performed By: #### P TT, PT #### [facility] [address] [place] [address] Dr. Nadeen Broderick INR GUIDELINES SEE BELOW Normal [facility] Comment on above: Result Comment: DAVID RED INR: 2.0 - 3.0 CONDITIONS NOT LISTED BELOW 2.5 - 3.5 FOR PROSTHETIC HEART VALVE REPLACEMENT 2.5 - 3.5 RECURRENT THROMBOSIS Performed By: #### P TT, PT #### [facility] [address] [place] [address] Dr. Nadeen Broderick PT Coag (PPP) [Time] 13.5 s Critically high 9.0-11.6 [facility] Comment on above: Performed By: #### P TT, PT #### [facility] [address] [place], [place] [address] Dr. Nadeen Broderick PTTon 04-30-2022 aPTT Coag (Bld) [Time] 53.6 s Critically high 22.3-36.2 [facility] Comment on above: Performed By: #### P TT, PT #### [facility] [address] [place], [place] [address] Dr. Nadeen Broderick ID - Follow Upon 03-19-2022 ID - Follow Up Chief Complaint A telephone visit (audio only) between the patient (at the originating site) and the provider (at the distant site) was utilized to provide this telehealth service. Verbal consent was requested and obtained from RASHAD MCNAIR on this date, 03/19/2022 11:00 AM , [...] Allergies Sulfa Drugs Rash; Recorded By: Sweetie Pop; 09/30/2014 2:01:39 PM Penicillins Recorded By: Hillary [...] THEN 14 DAYS OFF - REFILLS CALL: [phone]; Therapy: 17Dec2020 to (Last Rx:09Jul2021) Requested for: 09Jul2021 Ordered Rx By: Rodriguez Quiroz; Dispense: 0 Days ; #:16 Milliliter; Refill: 6; For: Bronchiectasis, CVID (common variable immunodeficiency); ZACH = N; Print Rx; Msg to Pharmacy: YES, OK TO DISPENSE 16 AMPULES Atorvastatin Calcium 10 MG Oral Tablet; Therapy: 16Jun2018 to Recorded Rx By: Sweetie Pop; Dispense: 0 Days ; #: Sufficient Tablet; Refill: 0; ZACH = N; Record; Last Updated By: Mel Álvarez; 03/19/2022 11:14:54 AM Patitent is no longer taken this medication. Atorvastatin Calcium 20 MG Oral Tablet; Therapy: (Recorded:[id number]) to Recorded Dispense: 0 Days ; #: Sufficient; Refill: 0; ZACH = N; Record; Last Upda (more content not included)... Normal [facility] COMPREHENSIVE METABOLIC PANE Frank 10-01-2021 Albumin [Mass/Vol] 4.0 g/dL Normal 3.6-5.1 [facility] Comment on above: Performed By: #### 5 7311, 0020, 45488 #### [facility] [address], [address] [place] [address] Securities Supervisor: Ozzie Callejas MD Albumin/Globulin [Mass ratio] 1.8 {ratio} Normal 1.0-2.5 [facility] Comment on above: Performed By: #### 5 8984, 7600, 83353 #### [facility] of [address], [address] [place] [address] Securities Supervisor: Ozzie Callejas MD ALP [Catalytic activity/Vol] 94 U/L Normal 35-144 [facility] Comment on above: Performed By: #### 5 89, 7600, 79374 #### [facility] of [address], [address] [place] [address] Securities Supervisor: Ozzie Callejas MD ALT [Catalytic activity/Vol] 10 U/L Normal 9-46 [facility] Comment on above: Performed By: #### 5 8984, 0, 23576 #### [facility] of [address], [address] [place] [address] Securities Supervisor: Ozzie Callejas MD AST [Catalytic activity/Vol] 16 U/L Normal 10-35 [facility] Comment on above: Performed By: #### 5 8984, 0, 77360 #### [facility] of [address] [address] Securities Supervisor: Ozzie Callejas MD Bilirubin [Mass/Vol] 0.5 mg/dL Normal 0.2-1.2 [facility] Comment on above: Performed By: #### 5 8984, 0, 14179 #### [facility] of [address] [address] Securities Supervisor: Ozzie Callejas MD Calcium [Mass/Vol] 9.1 mg/dL Normal 8.6-10.3 [facility] Comment on above: Performed By: #### 5 8984, 7600, 88505 #### [facility] of [address] [address] Securities Supervisor: Ozzie Callejas MD Chloride [Moles/Vol] 101 mmol/L Normal 98-110 [facility] Comment on above: Performed By: #### 5 8984, 7600, 78374 #### [facility] [address] [address] Securities Supervisor: Ozzie Callejas MD CO2 [Moles/Vol] 26 mmol/L Normal 20-32 [facility] Comment on above: Performed By: #### 5 8984, 7600, 38885 #### [facility] [address] [address] Securities Supervisor: Ozzie Callejas MD Creatinine [Mass/Vol] 1.55 mg/dL High 0.70-1.11 [facility] Comment on above: Result Comment: For patients >49 years of age, the reference limit for Creatinine is approximately 13% higher for people identified as -Burkin[place]. Performed By: #### 5 8984, 7600, 40421 #### [facility] [address], [address] [place] [address] Securities Supervisor: Ozzie Callejas MD eGFR NON-AFR. SWISS 41 mL/min/1.73m2 Low > OR = 60 [facility] Comment on above: Performed By: #### 5 8984, 7600, 57876 #### [facility] [address] [address] Securities Supervisor: Ozzie Callejas MD GFR/1.73 sq M.predicted among blacks MDRD (S/P/Bld) [Vol rate/Area] 47 mL/min/{1.73_m2} Low > OR = 60 [facility] Comment on above: Performed By: #### 5 8984, 7600, 54576 #### [facility] [address] [address] Securities Supervisor: Ozzie Callejas MD Globulin (S) [Mass/Vol] 2.2 g/dL Normal 1.9-3.7 [facility] Comment on above: Performed By: #### 5 8984, 7600, 63301 #### [facility] [address] [address] Securities Supervisor: Ozzie Callejas MD Glucose [Mass/Vol] 92 mg/dL Normal 65-99 [facility] Comment on above: Result Comment: Fasting reference interval Performed By: #### 5 8984, 7600, 35529 #### [facility] of [address], [address] [place] [address] Securities Supervisor: Ozzie Callejas MD Potassium [Moles/Vol] 4.3 mmol/L Normal 3.5-5.3 [facility] Comment on above: Performed By: #### 5 8984, 7600, 78271 #### [facility] [address], [address] [place] [address] Securities Supervisor: Ozzie Callejas MD Protein [Mass/Vol] 6.2 g/dL Normal 6.1-8.1 [facility] Comment on above: Performed By: #### 5 8984, 0, 64459 #### [facility] [address], [address] [place] [address] Securities Supervisor: Ozzie Callejas MD Sodium [Moles/Vol] 137 mmol/L Normal 135-146 [facility] Comment on above: Performed By: #### 5 8984, 7600, 20645 #### [facility] [address] [address] Securities Supervisor: Ozzie Callejas MD Urea nitrogen [Mass/Vol] 19 mg/dL Normal 7-25 [facility] Comment on above: Performed By: #### 5 8984, 7600, 47998 #### [facility] of [address] [address] Securities Supervisor: Ozzie Callejas MD Urea nitrogen/Creatinin e [Mass ratio] 12 mg/mg Normal 6-22 [facility] Comment on above: Performed By: #### 5 8984, 7600, 70795 #### [facility] of [address] [address] Securities Supervisor: Ozzie Callejas MD LIPID PANEL, [facility] 09-10 Cholesterol [Mass/Vol] 114 mg/dL Normal <200 [facility] Comment on above: Order Comment: FASTI NG:YES FASTING: YES Performed By: #### 5 8984, 7600, 77771 #### [facility] [address], [address] [place] [address] Securities Supervisor: Ozzie Callejas MD Cholesterol in HDL [Mass/Vol] 47 mg/dL Normal > OR = 40 [facility] Comment on above: Order Comment: FASTI NG:YES FASTING: YES Performed By: #### 5 8984, 7600, 10861 #### [facility] [address], [address] [place] [address] Securities Supervisor: Ozzie Callejas MD Cholesterol in LDL [Mass/Vol] [...] Jay Jay SS et al. MARIBEL. 2013;310(19): 9266-2703 ([email or web address]) Performed By: #### 5 8972, 7600, 99027 #### [facility] [address], [address] [place] [address] Securities Supervisor: Ozzie Callejas MD Cholesterol.total/ Cholesterol in HDL [Mass ratio] 2.4 {ratio} Normal <5.0 [facility] Comment on above: Order Comment: FASTI NG:YES FASTING: YES Performed By: #### 5 8984, 7600, 19515 #### [facility] [address], [address] [place] [address] Securities Supervisor: Ozzie Callejas MD NON HDL CHOLESTEROL 67 mg/dL (calc) Normal <130 [facility] Comment on above: Order Comment: FASTI NG:YES FASTING: YES Result Comment: For patients with diabetes plus 1 major ASCVD risk factor, treating to a non-HDL-C goal of <100 mg/dL (LDL-C of <70 mg/dL) is considered a therapeutic option. Performed By: #### 5 8984, 7600, 51311 #### [facility] [address], [address] [place] [address] Securities Supervisor: Ozzie Callejas MD Triglyceride [Mass/Vol] 60 mg/dL Normal <150 [facility] Comment on above: Order Comment: FASTI NG:YES FASTING: YES Performed By: #### 5 8984, 7600, 36321 #### [facility] [address], [address] [place] [address] Securities Supervisor: Ozzie Callejas MD TSH+FREE T4on 10-01-2021 Free T4 [Mass/Vol] 1.6 ng/dL Normal 0.8-1.8 [facility] Comment on above: Performed By: #### 5 8984, 7600, 36945 #### [facility] [address], [address] [place] [address] Securities Supervisor: Ozzie Callejas MD TSH Qn 0.68 m[IU]/L Normal 0.40-4.50 [facility] Comment on above: Performed By: #### 5 8984, 7600, 30522 #### [facility] [address] [place] [address] Securities Supervisor: Ozzie Callejas MD Tobacco Screening.on 022 Fall risk assessment a) No falls within the last year [facility] Work Phone: Tobacco use status [facility] b) No [facility] Work Phone: BASIC METABOLIC PANELon 03-12 Calcium [Mass/Vol] 8.8 mg/dL Normal 8.6-10.3 [facility] Comment on above: Order Comment: FASTI NG:UNKNOWN FASTING: UNKNOWN Performed By: #### 1 0165 #### [facility] of [address], [address] [place], [place] [address] Securities Supervisor: Ozzie Callejas MD Chloride [Moles/Vol] 99 mmol/L Normal 98-110 [facility] Comment on above: Order Comment: FASTI NG:UNKNOWN FASTING: UNKNOWN Performed By: #### 1 0165 #### [facility] [address], [address] [place] [address] Securities Supervisor: Ozzie Callejas MD CO2 [Moles/Vol] 28 mmol/L Normal 20-32 [facility] Comment on above: Order Comment: FASTI NG:UNKNOWN FASTING: UNKNOWN Performed By: #### 1 0165 #### [facility] [address], [address] [place] [address] Securities Supervisor: Ozzie Callejas MD Creatinine [Mass/Vol] 1.34 mg/dL High 0.70-1.11 [facility] Comment on above: Order Comment: FASTI NG:UNKNOWN FASTING: UNKNOWN Result Comment: For patients >49 years of age, the reference limit for Creatinine is approximately 13% higher for people identified as -Burkin[place]. Performed By: #### 1 0165 #### [facility] [address], [address] [place] [address] Securities Supervisor: Ozzie Callejas MD eGFR NON-AFR. SWISS 49 mL/min/1.73m2 Low > OR = 60 [facility] Comment on above: Order Comment: FASTI NG:UNKNOWN FASTING: UNKNOWN Performed By: #### 1 0165 #### [facility] [address], [address] [place] [address] Securities Supervisor: Ozzie Callejas MD GFR/1.73 sq M.predicted among blacks MDRD (S/P/Bld) [Vol rate/Area] 57 mL/min/{1.73_m2} Low > OR = 60 [facility] Comment on above: Order Comment: FASTI NG:UNKNOWN FASTING: UNKNOWN Performed By: #### 1 0165 #### [facility] [address], [address] [place] [address] Securities Supervisor: Ozzie Callejas MD Glucose [Mass/Vol] 84 mg/dL Normal 65-99 [facility] Comment on above: Order Comment: FASTI NG:UNKNOWN FASTING: UNKNOWN Result Comment: Fasting reference interval Performed By: #### 1 0165 #### [facility] [address] [address] Securities Supervisor: Ozzie Callejas MD Potassium [Moles/Vol] 4.3 mmol/L Normal 3.5-5.3 [facility] Comment on above: Order Comment: FASTI NG:UNKNOWN FASTING: UNKNOWN Performed By: #### 1 0165 #### [facility] [address] [address] Securities Supervisor: Ozzie Callejas MD Sodium [Moles/Vol] 135 mmol/L Normal 135-146 [facility] Comment on above: Order Comment: FASTI NG:UNKNOWN FASTING: UNKNOWN Performed By: #### 1 0165 #### [facility] [place] [address] Securities Supervisor: Ozzie Callejas MD Urea nitrogen [Mass/Vol] 20 mg/dL Normal 7-25 [facility] Comment on above: Order Comment: FASTI NG:UNKNOWN FASTING: UNKNOWN Performed By: #### 1 0165 #### [facility] [place] [address] Securities Supervisor: Ozzie Callejas MD Urea nitrogen/Creatinin e [Mass ratio] 15 mg/mg Normal 6-22 [facility] Comment on above: Order Comment: FASTI NG:UNKNOWN FASTING: UNKNOWN Performed By: #### 1 0165 #### [facility] [place] [address] Securities Supervisor: Ozzie Callejas MD Vital Signs Date Time Vital Sign Value Performing Clinician Jeffrey boyer 05-03-2024 13:09-0500 Body height 177.8 cm Blaise Marie DO Work Phone: [facility] 05-03-2024 13:09-0500 Body mass index (BMI) [Ratio] 20.63 kg/m2 Blaise Marie DO Work Phone: [facility] 05-03-2024 13:09-0500 Body temperature 98.1 [degF] Blaise Marie DO Work Phone: [employer] 05-03-2024 13:09-0500 Body weight 65.23 kg Blaise Marie DO Work Phone: [employer] 05-03-2024 13:09-0500 Diastolic blood pressure 60 mm[Hg] [facility]ise [facility] 05-03-2024 13:09-0500 Heart rate 88 /min Blaies Marie DO [facility] 05-03-2024 13:09-0500 SaO2% (BldA) [Mass fraction] 94 % Blaise Marie DO [facility] Phone: [facility] Comment on above: 2L/min 05-03-2024 13:09-0500 Systolic blood pressure 98 mm[Hg] Blaise Marie DO [facility] 05-02-2024 13:24-0500 Body height 180.3 cm Danis Self MD Work Phone: [facility] 05-02-2024 13:24-0500 Body mass index (BMI) [Ratio] 20.15 kg/m2 Danis Self MD Work Phone: [facility] 05-02-2024 13:24-0500 Body temperature 97.5 [degF] Danis Self MD Work Phone: [facility] 05-02-2024 13:24-0500 Body weight 65.5 kg Danis Self MD Work Phone: [facility] 05-02-2024 13:24-0500 Diastolic blood pressure 69 mm[Hg] Danis Self MD Work Phone: [facility] 05-02-2024 13:24-0500 Heart rate 85 /min Danis Self MD Work Phone: [facility] 05-02-2024 13:24-0500 Respiratory rate 18 /min Danis Self MD Work Phone: [facility] 05-02-2024 13:24-0500 SaO2% (BldA) [Mass fraction] 94 % Danis Self MD Work Phone: [facility] Comment on above: O2 @ 3L 05-02-2024 13:24-0500 Systolic blood pressure 121 mm[Hg] Danis Self MD Work Phone: [facility] 02-14-2024 15:05-0500 Body height 177.8 cm Blaise Ned BARNES Work Phone: [facility] [employer] 02-14-2024 15:05-0500 Body mass index (BMI) [Ratio] 20.75 kg/m2 Blaise Isaacs DO Work Phone: [facility] [employer] 02-14-2024 15:05-0500 Body temperature 97.5 [degF] Blaise Isaacs DO Work Phone: [facility] 02-14-2024 15:05-0500 Body weight 65.59 kg Blaise Isaacs DO Work Phone: [facility] 02-14-2024 15:05-0500 Diastolic blood pressure 52 mm[Hg] Blaise Ponchos DO Work Phone: [facility] 02-14-2024 15:05-0500 Heart rate 83 /min Blaise Ramonahas DO [facility] 02-14-2024 15:05-0500 Respiratory rate 20 /min Blaise Ponchos DO Work Phone: [facility] 02-14-2024 15:05-0500 SaO2% (BldA) [Mass fraction] 93 % Blaise Marie DO Work Phone: [facility] 02-14-2024 15:05-0500 Systolic blood pressure 102 mm[Hg] Blaise Marie DO Work Phone: [facility] [employer] [facility] 02-01-2024 16:16-0400 Body height 177.8 cm Blaise Marie DO Work Phone: [facility] [employer] [facility] 02-01-2024 16:16-0400 Body mass index (BMI) [Ratio] 20.75 kg/m2 Blaise Marie DO Work Phone: [facility] 02-01-2024 16:16-0400 Body temperature 98.01 [degF] Blaise Marie DO Work Phone: [facility] 02-01-2024 16:16-0400 Body weight 65.59 kg Blaise Marie DO Work Phone: [facility] 02-01-2024 16:16-0400 Diastolic blood pressure 62 mm[Hg] Blaise Marie DO Work Phone: [facility] 02-01-2024 16:16-0400 Heart rate 74 /min Blaise Marie DO Work Phone: [facility] 02-01-2024 16:16-0400 SaO2% (BldA) [Mass fraction] 99 % Blaise Marie DO Work Phone: [facility] [employer] [facility] 02-01-2024 16:16-0400 Systolic blood pressure 110 mm[Hg] Blaise Marie DO Work Phone: [facility] 02-01-2024 12:53-0400 Body height 180.3 cm Danis Self MD Work Phone: [facility] 02-01-2024 12:53-0400 Body mass index (BMI) [Ratio] 20.24 kg/m2 Danis Self MD Work Phone: [facility] 02-01-2024 12:53-0400 Body temperature 97.3 [degF] Danis Self MD Work Phone: [facility] 02-01-2024 12:53-0400 Body weight 65.8 kg Danis Self MD Work Phone: [facility] 02-01-2024 12:53-0400 Diastolic blood pressure 61 mm[Hg] Danis Self MD Work Phone: [facility] 02-01-2024 12:53-0400 Heart rate 78 /min Danis Self MD Work Phone: [facility] 02-01-2024 12:53-0400 Respiratory rate 16 /min Danis Self MD Work Phone: [facility] 02-01-2024 12:53-0400 SaO2% (BldA) [Mass fraction] 96 % Danis Self MD Work Phone: [facility] Comment on above: O2 @ 2L 02-01-2024 12:53-0400 Systolic blood pressure 97 mm[Hg] Danis Self MD Work Phone: [facility] 12-29-2023 12:42-0400 Body height 177.8 cm Blaise Marie DO Work Phone: [facility] 12-29-2023 12:42-0400 Body mass index (BMI) [Ratio] 21.29 kg/m2 Blaise Marie DO Work Phone: [facility] 12-29-2023 12:42-0400 Body temperature 98.01 [degF] Blaise Marie DO Work Phone: [facility] [facility] 12-29-2023 12:42-0400 Body weight 67.31 kg Blaise Marie DO Work Phone: [facility] 12-29-2023 12:42-0400 Diastolic blood pressure 50 mm[Hg] Blaise Marie DO Work Phone: [facility] [employer] [facility] 12-29-2023 12:42-0400 Heart rate 73 /min Blaise Marie DO Work Phone: [facility] [employer] [facility] 12-29-2023 12:42-0400 SaO2% (BldA) [Mass fraction] 96 % Blaise Marie DO Work Phone: [facility] [employer] [facility] 12-29-2023 12:42-0400 Systolic blood pressure 110 mm[Hg] Blaise Marie DO Work Phone: [facility] 10-25-2023 10:10-0400 Body height 177.8 cm Alexander Lozano MD Work Phone: [facility] 10-25-2023 10:10-0400 Body mass index (BMI) [Ratio] 20.95 kg/m2 Alexander Lozano MD Work Phone: [facility] 10-25-2023 10:10-0400 Body weight 66.22 kg Alexander Lozano MD Work Phone: [facility] 10-25-2023 10:10-0400 Diastolic blood pressure 42 mm[Hg] Alexander Lozano MD Work Phone: [facility] 10-25-2023 10:10-0400 Heart rate 66 /min Alexander Lozano MD Work Phone: [facility] 10-25-2023 10:10-0400 Systolic blood pressure 80 mm[Hg] Alexander Lozano MD Work Phone: [facility] 09-07-2023 14:45-0400 Diastolic blood pressure 56 mm[Hg] Blaise Marie DO Work Phone: [facility] 09-07-2023 14:45-0400 Systolic blood pressure 88 mm[Hg] lBaise Marie DO Work Phone: [facility] 09-07-2023 13:15-0400 Body height 177.8 cm Blaise Marie DO Work Phone: [facility] 09-07-2023 13:15-0400 Body mass index (BMI) [Ratio] 21.21 kg/m2 Blaise Marie DO Work Phone: [facility] [employer] [facility] 09-07-2023 13:15-0400 Body temperature 97.3 [degF] Blaise Marie DO Work Phone: [facility] [employer] [facility] 09-07-2023 13:15-0400 Body weight 67.04 kg Blaise Marie DO Work Phone: [facility] 09-07-2023 13:15-0400 Heart rate 75 /min Blaise Marie DO Work Phone: [facility] [employer] [facility] 09-07-2023 13:15-0400 Respiratory rate 18 /min Blaise Marie DO Work Phone: [facility] [employer] [facility] 09-07-2023 13:15-0400 SaO2% (BldA) [Mass fraction] 93 % Blaise Marie DO Work Phone: [facility] 08-09-2023 11:27-0400 Body height 177.8 cm Shani Burt MD Work Phone: [facility] 08-09-2023 11:27-0400 Body mass index (BMI) [Ratio] 21.09 kg/m2 Shani Burt MD Work Phone: [facility] [employer] [facility] 08-09-2023 11:27-0400 Body weight 66.68 kg hSani Burt MD Work Phone: [facility] 08-09-2023 11:27-0400 Diastolic blood pressure 56 mm[Hg] Shani Burt MD Work Phone: [facility] [employer] [facility] 08-09-2023 11:27-0400 Heart rate 87 /min Shani Burt MD Work Phone: [facility] [employer] [facility] 08-09-2023 11:27-0400 Systolic blood pressure 85 mm[Hg] Shani Burt MD Work Phone: [facility] 07-19-2023 13:04-0400 Body height 177.8 cm Blaise Greenehas DO Work Phone: [facility] 07-19-2023 13:04-0400 Body mass index (BMI) [Ratio] 21.14 kg/m2 Blaise Yuhas DO Work Phone: [facility] 07-19-2023 13:04-0400 Body weight 66.81 kg Blaise Yuhas DO Work Phone: [facility] 07-19-2023 13:04-0400 Diastolic blood pressure 58 mm[Hg] Blaise Yuhas DO Work Phone: [facility] 07-19-2023 13:04-0400 Systolic blood pressure 98 mm[Hg] Blaise Yuhas DO Work Phone: [facility] 05-24-2023 12:05-0500 Diastolic blood pressure 68 mm[Hg] Blaise Yuhas DO Work Phone: [facility] 05-24-2023 12:05-0500 Systolic blood pressure 98 mm[Hg] Blaise Greenehas DO Work Phone: [facility] 05-24-2023 11:30-0500 Body height 180.3 cm Blaise Greenehas DO Work Phone: [facility] 05-24-2023 11:30-0500 Body mass index (BMI) [Ratio] 20.35 kg/m2 Blaise Yuhas DO Work Phone: [facility] 05-24-2023 11:30-0500 Body temperature 97.7 [degF] Blaise Yuhas DO Work Phone: [facility] 05-24-2023 11:30-0500 Body weight 66.18 kg Blaise Greenehas DO Work Phone: [facility] 05-24-2023 11:30-0500 Heart rate 87 /min Blaise Greenehas DO Work Phone: [facility] [employer] [facility] 05-24-2023 11:30-0500 SaO2% (BldA) [Mass fraction] 93 % Blaise Marie DO Work Phone: [facility] [employer] [facility] Comment on above: pt is on o2 at home , hands are cold 04-05-2023 10:46-0500 Body height 180.3 cm Blaise Marie DO Work Phone: [facility] [employer] [facility] 04-05-2023 10:46-0500 Body mass index (BMI) [Ratio] 20.42 kg/m2 Blaise Marie DO Work Phone: [facility] [employer] [facility] 04-05-2023 10:46-0500 Body temperature 97.7 [degF] Blaise Marie DO Work Phone: [facility] [employer] [facility] 04-05-2023 10:46-0500 Body weight 66.41 kg Blaise Marie DO Work Phone: [facility] [employer] [facility] 04-05-2023 10:46-0500 Diastolic blood pressure 52 mm[Hg] Blaise Marie DO Work Phone: [facility] [employer] 04-05-2023 10:46-0500 Heart rate 73 /min Blaise Marie DO Work Phone: [facility] [employer] 04-05-2023 10:46-0500 SaO2% (BldA) [Mass fraction] 95 % Blaise Marie DO Work Phone: [facility] 04-05-2023 10:46-0500 Systolic blood pressure 110 mm[Hg] Blaise Marie DO Work Phone: [facility] 02-02-2023 15:26-0400 Body height 180.3 cm Tristin Campbell MD Work Phone: [facility] 02-02-2023 15:26-0400 Body temperature 97.3 [degF] Tristin Campbell MD Work Phone: [facility] 02-02-2023 15:26-0400 Body weight 68.77 kg Tristin Campbell MD Work Phone: [facility] 02-02-2023 15:26-0400 Diastolic blood pressure 67 mm[Hg] Tristin Campbell MD Work Phone: [facility] 02-02-2023 15:26-0400 Heart rate 73 /min Tristin Campbell MD Work Phone: [facility] 02-02-2023 15:26-0400 Respiratory rate 18 /min Tristin Campbell MD Work Phone: [facility] 02-02-2023 15:26-0400 SaO2% (BldA) [Mass fraction] 97 % Tristin Campbell MD Work Phone: [facility] 02-02-2023 15:26-0400 Systolic blood pressure 119 mm[Hg] Tristin Campbell MD Work Phone: [facility] 11-12-2022 11:19-0400 Body mass index (BMI) [Ratio] 20.73 kg/m2 Blaise Marie Work Phone: [facility] [facility] Work Phone: 11-12-2022 11:19-0400 Body surface area Derived from formula 1.86 m2 Blaise Marie Work Phone: LJ-Cleanqxckj[facility] [facility] Work Phone: 11-12-2022 11:19-0400 Body weight 67.4 kg Blaise Marie Work Phone: UI-Hmdxtgltvq[facility] [facility] Work Phone: 11-12-2022 10:42-0400 Diastolic blood pressure 64 mm[Hg] Blaise Marie Work Phone: GE-Yvyaptqerd-[address] [facility] [place] [facility] Work Phone: 11-12-2022 10:42-0400 Heart rate 89 /min Blaise Marie Work Phone: BB-Dnyfjkcctl-[address] [facility] [place] [facility] Work Phone: 11-12-2022 10:42-0400 Systolic blood pressure 98 mm[Hg] Blaise Marie Work Phone: WG-Sdrmktimnl-[address] [facility] [place] [facility] Work Phone: 05-07-2022 10:39-0500 Body mass index (BMI) [Ratio] 20.92 kg/m2 Blaise Marie Work Phone: WD-Aeodgnkyij-Zti [address] DO Work Phone: 05-07-2022 10:39-0500 Body surface area Derived from formula 1.87 m2 Blaise Greeneiva Work Phone: WE-Ijobfxzlbe-Iam [address] [address] DO Work Phone: 05-07-2022 10:39-0500 Body weight 68.04 kg Blaise Marie Work Phone: PS-Rkvtrwyvau-Lqn [address] DO Work Phone: 05-07-2022 10:39-0500 Diastolic blood pressure 61 mm[Hg] Blaise Marie Work Phone: NI-Cdhmkhojkd-Xct [address] [address] DO Work Phone: 05-07-2022 10:39-0500 Heart rate 90 /min Blaise Isaacrachael Work Phone: RS-Bndeczgsfu-Icr [address] DO Work Phone: 05-07-2022 10:39-0500 SaO2% (BldA) [Mass fraction] 98 % Blaise Beck Ned Work Phone: YP-Gbonuwromt-Tgf t[address] DO Work Phone: 05-07-2022 10:39-0500 Systolic blood pressure 112 mm[Hg] Blaise Marie Work Phone: EV-Nlgjrelknu-Fhr [address] [address] DO Work Phone: 09-25-2021 10:13-0400 Body mass index (BMI) [Ratio] 22.32 kg/m2 Blaise Marie Work Phone: MU-Upegzxkgfi-Hjo [address] DO Work Phone: 09-25-2021 10:13-0400 Body surface area Derived from formula 1.92 m2 Blaise Greeneiva Work Phone: XP-Hwolbnxlox-Ldp [address] [address] DO Work Phone: 09-25-2021 10:13-0400 Body weight 72.57 kg Blaise Beck Ned Work Phone: ZB-Rhxgykdowb-Xga t[address] 2[address] DO Work Phone: 09-25-2021 10:13-0400 Diastolic blood pressure 75 mm[Hg] Blaise Beck Ned Work Phone: HG-Ovhhwdlcei-Igv [address] DO Work Phone: 09-25-2021 10:13-0400 Heart rate 85 /min Blaise Greeneiva Work Phone: RI-Apadpnknol-Yuv [address] [address] DO Work Phone: 09-25-2021 10:13-0400 SaO2% (BldA) [Mass fraction] 96 % Blaise Greeneiva Work Phone: IM-Wvxjmmfjdp-Kxt [address] [address] DO Work Phone: 09-25-2021 10:13-0400 Systolic blood pressure 106 mm[Hg] Blaise Beck Ned Work Phone: DB-Tpssyfzgzy-Ybv [address] [address] DO Work Phone: 06-12-2021 09:38-0500 0 1 Blaise Beck Ned Work Phone: MG-[facility]ious [facility] Bo Work Phone: Comment on above: [employer] 11-14-2020 10:23-0400 Body height 180.34 cm Blaise Marie Work Phone: XE-Nolmanjmml-Zeb [address] DO Work Phone: 11-14-2020 10:23-0400 Body mass index (BMI) [Ratio] 22.87 kg/m2 Blaise Marie Work Phone: EZ-Wgsrhagmej-Vqa [address]lake 2100 DO Work Phone: 11-14-2020 10:23-0400 Body surface area Derived from formula 1.94 m2 Blaise Marie Work Phone: EO-Qinkgbvxxa-Www [address] 2100 DO Work Phone: 11-14-2020 10:23-0400 Body weight 74.39 kg Blaise Marie Work Phone: KC-Qvgdngzrcg-Kba [address] 2100 DO Work Phone: 11-14-2020 10:23-0400 Diastolic blood pressure 74 mm[Hg] Blaise Marie Work Phone: CR-Dmsuxydaky-Rbr [address] 2100 DO Work Phone: 11-14-2020 10:23-0400 Systolic blood pressure 116 mm[Hg] Blaise Marie Work Phone: EK-Seezoxyoor-Zgp tlake 2100 DO Work Phone: 12-22-2018 13:54-0400 BMI (Body Mass Index) 21.2 kg/m2 Rodriguez Quiroz LE-Socmsih-Fgjbrc ke 2470 Work Phone: 12-22-2018 13:54-0400 Body weight 68.95 kg Rodriguez Quiroz PD-Hgxwird-Bofay a ke 2470 Work Phone: 12-22-2018 13:54-0400 BP Diastolic 72 mm[Hg] Rodriguez Quiroz HD-Aaebqpp-Iiwdr a ke 2470 Work Phone: 12-22-2018 13:54-0400 BP Systolic 111 mm[Hg] Rodriguez Quiroz NS-Ztpgish-Axkbj a ke 2470 Work Phone: 12-22-2018 13:54-0400 BSA (Body Surface Area) 1.88 m2 Rodriguez rayo 2470 Work Phone: 12-22-2018 13:54-0400 Height 180.34 cm Rodriguez rayo 0311 Work Phone: 12-22-2018 13:54-0400 Pulse (Heart Rate) 73 /min Rodriguez rayo 2471 Work Phone: Encounters Encounter Date Encounter Type Care Provider Facility Start: 05-11-2024 End: 05-11-2024 Phys/qhp telephone evaluation 21-30 min Rodriguez Quiroz MD Work Phone: [facility] Comment on above: Pneumonia due to Pse udomonas species, unspecified laterality, unspecified part of lung (Multi) (Primary Dx); Serratia marcescens infection; Bronchiectasis without complication (Multi) Start: 05-11-2024 End: 05-11-2024 ambulatory [facility] Start: 05-03-2024 End: 05-03-2024 Telephone encounter Danis Self MD Work Phone: Hematology/Oncology Comment on above: Results; OTC Iron/Vi t C recommendation Start: 05-03-2024 End: 05-03-2024 Office outpatient visit 25 minutes Blaise Marie DO Work Phone: [facility] Comment on above: Hypotension due to h ypovolemia (Primary Dx); Chronic myeloproliferative disease ([facility]-HCC); Pulmonary hypertension ([facility]-HCC); 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); Chronic obstructive pulmonary disease, unspecified COPD type ([facility]-HCC); Bronchiectasis (CMS-HCC); Paroxysmal atrial fibrillation ([facility]-HCC); Chronic renal impairment, stage 3a ([facility]-HCC) Start: 05-03-2024 End: 05-03-2024 [facility] Start: 05-02-2024 End: 05-02-2024 Office outpatient visit 15 minutes Danis Self MD Work Phone: Hematology/Oncology Comment on above: CLL (chronic lymphoc ytic leukemia) (HCC) (Primary Dx); Other specified diseases of blood and blood-forming organs Start: 05-02-2024 End: 05-02-2024 ambulatory BLAISE MARIE Facility:[facility] Start: 04-27-2024 End: 04-27-2024 ambulatory [facility] Start: 04-26-2024 End: 04-26-2024 ambulatory [facility] Start: 04-22-2024 End: 04-22-2024 Refill Blaise Marie DO Work Phone: [facility] Comment on above: Gastro-esophageal re flux disease without esophagitis Start: 03-05-2024 End: 03-05-2024 Office outpatient visit 25 minutes Sweetie Pop MD Work Phone: [facility] Comment on above: CVID (common variabl e immunodeficiency) (Primary Dx) Start: 03-05-2024 End: 03-05-[address] [facility] Start: 02-28-2024 End: 02-28-2024 ambulatory [facility] Start: 02-27-2024 End: 02-27-2024 ambulatory [facility] Start: 02-16-2024 End: 02-16-2024 Orders Only Blaise Marie DO Work Phone: [facility] Comment on above: Urinary tract infect ion due to Enterococcus (Primary Dx) Start: 02-14-2024 End: 02-14-2024 ambulatory [facility] Start: 02-14-2024 End: 02-14-2024 Office outpatient visit 10 minutes Blaise Marie DO Work Phone: [facility] Comment on above: Lower urinary tract symptoms (LUTS) (Primary Dx) Start: 02-14-2024 End: 02-14-2024 ambulatory [facility] Start: 02-13-2024 End: 02-14-2024 Telephone encounter [facility] Start: 02-01-2024 End: 02-01-2024 ambulatory [facility] Start: 02-01-2024 End: 02-01-2024 Office outpatient visit 15 minutes Blaise Marie DO Work Phone: [facility] Comment on above: Hypotension due to h ypovolemia (Primary Dx); Pulmonary hypertension (CMS-HCC); Bronchiectasis (CMS-HCC); Chronic obstructive pulmonary disease, unspecified COPD type (CMS-HCC) Start: 02-01-2024 End: 02-01-2024 Office outpatient visit 25 minutes Danis Self MD Work Phone: Hematology/Oncology Comment on above: CLL (chronic lymphoc ytic leukemia) (HCC) (Primary Dx); Neutrophilic leukocytosis; Chronic myeloproliferative disease (HCC); Other specified diseases of blood and blood-forming organs Start: 02-01-2024 End: 02-01-2024 ambulatory DANIS SELF Facility:[facility] Start: 01-26-2024 End: 01-26-2024 ambulatory [facility] Start: 12-29-2023 End: 12-29-2023 ambulatory [facility] Start: 12-29-2023 End: 12-29-2023 Transitional care manage srvc 14 day discharge Blaise Marie DO Work Phone: [facility] Comment on above: Orthostatic dizzines s (Primary Dx); Pulmonary hypertension (CMS-HCC); Bronchiectasis ([facility]-HCC); Chronic obstructive pulmonary disease, unspecified COPD type ([facility]-HCC) Start: 12-28-2023 End: 12-29-2023 Telephone encounter Blaise Marie DO Work Phone: [facility] Start: 12-25-2023 End: 12-25-2023 Refill Blaise Marie DO Work Phone: [facility] Comment on above: Mixed hyperlipidemia ; Other specified hypothyroidism Start: 12-19-2023 End: 12-19-2023 Telephone encounter [facility] Comment on above: Transition Of Care Start: 12-15-2023 End: 12-18-2023 Emergency department patient visit JES BARRAGAN [facility] Start: 12-15-2023 End: 12-17-2023 Evaluation and management of inpatient [facility] Ebony MARIE [facility] Start: 12-15-2023 End: 12-15-2023 ambulatory [facility] Work Phone: Start: 12-15-2023 End: 12-15-2023 Patient encounter procedure [facility] Work Phone: Start: 11-21-2023 End: 11-21-2023 Refill Blaise Marie DO Work Phone[facility] Comment on above: Chronic obstructive pulmonary disease, unspecified COPD type (CMS-HCC) Start: 11-11-2023 End: 11-11-2023 ambulatory [facility] Start: 10-31-2023 End: 10-31-[address] [facility] Start: 10-25-2023 End: 10-25-2023 Office outpatient visit 15 minutes Alexander Lozano MD Work Phone: [facility] Comment on above: Paroxysmal atrial fi brillation (CMS-HCC) (Primary Dx); Mixed hyperlipidemia Start: 10-25-2023 End: 10-25-2023 ambulatory [facility] Start: 10-24-2023 End: 10-24-2023 Telephone encounter Rosa Gramajo [facility] Start: 10-13-2023 End: 10-13-2023 Refill Blaise Marie DO Work Phone: [facility] Comment on above: Gastro-esophageal re flux disease without esophagitis Start: 10-10-2023 End: 10-12-2023 Telephone encounter Blaise Marie DO Work Phone: [facility] Start: 09-07-2023 End: 09-07-2023 ambulatory [facility] Start: 09-07-2023 End: 09-07-2023 ambulatory [facility] Start: 09-07-2023 End: 09-07-2023 Office outpatient visit 25 minutes Blaise Marie DO Work Phone: [facility] Comment on above: Chronic obstructive pulmonary disease, unspecified COPD type (CMS-HCC) (Primary Dx); Bronchiectasis ([facility]-HCC); Chronic lymphocytic leukemia of B-cell type not having achieved remission ([facility]-HCC); Hyponatremia; Hypotension due to hypovolemia Start: 08-24-2023 End: 08-26-2023 Refill Trenton Pepper MD Work Phone: [facility] Comment on above: Med Refill Start: 08-09-2023 End: 08-09-2023 Office outpatient visit 15 minutes Shani Burt MD Work Phone: [facility] Comment on above: Benign non-nodular p rostatic hyperplasia with lower urinary tract symptoms (Primary Dx) Start: 08-09-2023 End: 08-09-2023 ambulatory SHANI BURT [facility] Start: 07-19-2023 End: 07-19-2023 ambulatory [facility] Start: 07-19-2023 End: 07-19-2023 Patient encounter procedure Blaise Marie DO Work Phone: [facility] Comment on above: Encounter for subseq uent annual wellness visit (AWV) in Medicare patient (Primary Dx) Start: 07-04-2023 End: 07-04-2023 ambulatory [facility] Start: 07-01-2023 Refill Blaise Chadwick Work Phone: [facility] Comment on above: Mixed hyperlipidemia Start: 06-16-2023 Refill [facility]aise Chadwick [facility] Comment on above: Other specified hypo thyroidism Start: 06-14-2023 End: 06-14-[address] [facility] Start: 06-14-2023 End: 06-14-2023 Office outpatient visit 15 minutes Sweetie Pop MD Work Phone: [facility] Comment on above: CVID (common variabl e immunodeficiency) (CMS/HCC) (Primary Dx) Start: 06-09-2023 End: 06-09-2023 ambulatory [facility] Start: 06-07-2023 End: 06-07-2023 ambulatory [facility] Start: 05-24-2023 End: 05-24-2023 ambulatory [facility] Start: 05-24-2023 End: 05-24-2023 Office outpatient visit 25 minutes Blaise Marie DO [facility] Comment on above: Chronic obstructive pulmonary disease, unspecified COPD type (CMS-HCC) (Primary Dx); Mixed hyperlipidemia; 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 Start: 04-29-2023 End: 04-29-2023 Phys/qhp telephone evaluation 21-30 min Rodriguez Quiroz MD Work Phone: [facility] Comment on above: Pneumonia due to Pse udomonas species, unspecified laterality, unspecified part of lung (CMS/HCC) (Primary Dx); Bronchiectasis without complication (CMS/HCC) Start: 04-17-2023 Refill Blaise Chadwick Work Phone: [facility] Comment on above: Bronchiectasis Start: 04-05-2023 End: 04-05-2023 Office outpatient visit 25 minutes Blaise Marie DO [facility] Comment on above: Acute exacerbation o f bronchiectasis (CMS-HCC) (Primary Dx); Chronic lymphocytic leukemia of B-cell type not having achieved remission (CMS-HCC) Start: 02-11-2023 End: 02-11-2023 Office outpatient visit 40 minutes Sweetie Pop MD Work Phone: [facility] Comment on above: Bronchiectasis witho ut complication (CMS/HCC) (Primary Dx); 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 Ramonaiva Facility:[id number] Start: 08-06-2022 Office outpatient vi sit 25 minutes Blaise Marie Work Phone: BF-Klrjpoqqvc-Drscm juan 2100 DO Work Phone: Start: 08-06-2022 Patient encounter procedure Clary Beck Ponchorachael Work Phone: JW-Pjyrvikags-Krinc juan 2100 DO Work Phone: Start: 08-06-[address] Ponchorachael Facility:[id number] Start: 06-10-2022 Chart Update Blaise Beck Ponchorachael Work Phone: [facility]Infectious Disease[facility] Work Phone: Start: 05-20-2022 Chart Update Blaise Beck Ramonaiva Work Phone: [facility] Work Phone: Start: 05-19-2022 Chart Update Blaise Marie Work Phone: [facility] Work Phone: Start: 05-18-2022 AUDIT Blaise Beck Ramonaiva Work Phone: [facility] Work Phone: Start: 05-10-2022 Chart Update Blaise Beck Ramonaiva Work Phone: [facility] Work Phone: Start: 05-07-2022 Office outpatient vi sit 40 minutes Blaise Marie Work Phone: KS-Ljktbruwye-Ujkpo a Work Phone: Start: 05-07-2022 Patient encounter procedure Clary Marie Work Phone: TR-Saokgtlauv-Rwodm ake [id number] DO Work Phone: Start: 05-07-[address] Blaise Marie Facility:[id number] Start: 05-05-2022 Encounter for prepro cedural laboratory examination [facility]IA [facility] . [facility] Start: 05-03-2022 End: 05-03-2022 ambulatory RABIABENJAMIN JACOBSON . Facility:H1 Start: 04-30-2022 End: 05-01-2022 ambulatory RABIA [facility] . Facility:H1 Start: 04-30-2022 End: 05-01-2022 Encounter for preprocedural laboratory examination RABIA [facility] . Facility:H1 Start: 03-19-[address] Blaise Marie Facility:[id number] Start: 03-19-2022 Phys/qhp telephone evaluation 21-30 min Blaise Marie Work Phone: MG-Infectious Disease-[place] Work Phone: Start: 10-09-2021 Phys/qhp telephone evaluation 21-30 min Blaise Marie Work Phone: MG-Infectious Disease-[facility] Sixes Work Phone: Start: 09-25-2021 Office outpatient vi sit 25 minutes Blaise Marie Work Phone: YA-Ziutooxmdv-Ceqjj ake 2100 DO Work Phone: Start: 07-09-2021 AUDIT Blaise Marie Work Phone: MG-Infectious Disease-[facility] Bo Work Phone: Start: 06-12-2021 Phys/qhp telephone evaluation 21-30 min Blaise Marie Work Phone: MG-Infectious Disease-[facility] Sixes Work Phone: Start: 05-15-2021 Office outpatient vi sit 15 minutes Blaise Marie Work Phone: YJ-Ervswulejn-Rqbjc juan 2100 DO Work Phone: Start: 01-16-2021 Phys/qhp telephone evaluation 21-30 min Blaise Marie Work Phone: MG-Infectious Disease-[place] Work Phone: Start: 12-17-2020 Rx Change Blaise Marie Work Phone: MG-Infectious Disease-[facility] Work Phone: Start: 11-14-2020 Office outpatient vi sit 25 minutes Blaise Marie Work Phone: ZU-Iyzgwxlhvx-Wrxkg juan 2100 DO Work Phone: Start: 12-22-2018 Patient encounter procedure Rodriguez anderson CD-Vwgyutx-Hbhazzrm 2470 Work Phone: Start: 06-16-2018 Patient encounter procedure Rodriguez anderson AC-Ihxmildhdu-Zlizf a Work Phone: Start: 12-23-2017 Patient encounter procedure Rodriguez anderson FS-Wibeqyiphh-Edboe a Work Phone: Start: 08-16-2017 Patient encounter procedure Rodriguez anderson XV-Zvqhnwhlzl-Zyvbv a Work Phone: Start: 06-17-2017 Patient encounter procedure Rodriguez anderson NA-Nhhoytxbva-Utnxd a Work Phone: Start: 06-07-2017 Patient encounter procedure Rodriguez anderson VV-Hbsbphevej-Rmlvr a Work Phone: Start: 04-29-2017 Patient encounter procedure Rodriguez anderson NL-Lqojlsbazp-Vizqh a Work Phone: Start: 02-15-2017 Patient encounter procedure Rodriguez anderson JE-Mvedqzorof-Dcozw a Work Phone: Procedures Date Procedure Procedure Detail Performing Clinician Start: 05-03-2024 Adult depression scr eening assessment Blaise Marie DO Work Phone: Start: 02-14-2024 Urnls dip stick/tabl et rgnt auto w/o microscopy Blaise Marie DO Work Phone: Start: 02-01-2024 Adult depression scr eening assessment Blaise Marie DO Work Phone: Start: 12-29-2023 Adult depression scr eening assessment Blaise Marie DO Work Phone: Start: 10-25-2023 Follow-up visit Follow-up ALEXANDER Beck JUAN DIEGO Start: 09-07-2023 Adult depression scr eening assessment Blaise Marie DO Work Phone: Start: 08-09-2023 Follow-up visit Follow-up SHANI Karl BURT Start: 07-19-2023 Adult depression scr eening assessment Blaise Marie DO Work Phone: Start: 05-24-2023 Adult depression scr eening assessment Blaise Marie DO Work Phone: Start: 04-05-2023 Adult depression scr eening assessment [...] de anda History of Sinus Surgery Sco Quiroz History of Thyroid Surgery S horace Quiroz Plan of Treatment Date Care Activity Detail Author Start: 01-21-2033 DTaP,Tdap and Td Vaccines (2 - Td or Tdap) DTaP,Tdap and Td Vaccines (2 - Td or Tdap) [facility] Start: 01-21-2033 DTaP/Tdap/Td Vaccine s (2 - Td or Tdap) DTaP/Tdap/Td Vaccines (2 - Td or Tdap) [facility] Start: 01-21-2033 Urine microalbumin profile DTaP,Tdap,Td Vaccine (2 - Td or Tdap) [facility] Start: 05-02-2027 Diabetes Screening Diabetes Screenin g [facility] Start: 01-31-2027 Diabetes Screening Diabetes Screenin g [facility] Start: 02-02-2026 Diabetes Screening Diabetes Screenin g [facility] Start: 05-03-2025 Depression Screening Depression Scre ening [facility] Start: 05-03-2025 Fall Risk Screening Fall Risk Screen ing [facility] Start: 05-03-2025 Tobacco Screening Tobacco Screening [facility] Start: 01-31-2025 Adult BMI Screening Adult BMI Screen ing [facility] Start: 01-31-2025 Depression Screening Depression Scre ening [facility] Start: 01-31-2025 Fall Risk Screening Fall Risk Screen ing [facility] Start: 12-28-2024 Adult BMI Screening Adult BMI Screen ing [facility] Start: 12-28-2024 Depression Screening Depression Scre ening [facility] Start: 12-28-2024 Fall Risk Screening Fall Risk Screen ing [facility] Start: 12-28-2024 Tobacco Screening Tobacco Screening [facility] Start: 12-16-2024 Adult BMI Screening Adult BMI Screen ing [facility] Start: 12-14-2024 Tobacco Screening Tobacco Screening [facility] Start: 10-24-2024 Adult BMI Screening Adult BMI Screen ing [facility] Start: 10-24-2024 Tobacco Screening Tobacco Screening [facility] Start: 09-06-2024 Adult BMI Screening Adult BMI Screen ing [facility] Start: 09-06-2024 Depression Screening Depression Scre ening [facility] Start: 09-06-2024 Tobacco Screening Tobacco Screening [facility] Start: 08-08-2024 Adult BMI Screening Adult BMI Screen ing [facility] Start: 08-08-2024 Tobacco Screening Tobacco Screening [facility] Start: 08-02-2024 End: 08-02-2024 Patient encounter procedure 08/02/2024 1:00 PM EDT [facility] [address] [place] [address] Blaise Marie, [address] [place] [address] [facility] - Family [facility] Start: 08-01-2024 End: 08-01-2024 Follow-up encounter 08/01/2024 1:00 PM EDT Visit (SP) Office Hematology/Oncology [address] [place] [address] Danis Self MD [address] [place] [address] Follow up Hematology/Oncology Comment on above: Follow up Start: 07-31-2024 End: 10-30-2024 CBC W Auto Differential panel - Blood COMPLETE BLOOD COUNT AND DIFFERENTIAL Lab Routine CLL (chronic lymphocytic leukemia) (HCC) Expected: 07/31/2024 (Approximate), Expires: 10/30/2024 [facility] Comment on above: Expected: 07/31/2024 (Approximate), Expires: 10/30/2024 Start: 07-31-2024 End: 10-30-2024 Comprehensive metabolic 2000 panel - Serum or Plasma COMPREHENSIVE METABOLIC PANEL Lab Routine CLL (chronic lymphocytic leukemia) (HCC) Expected: 07/31/2024 (Approximate), Expires: 10/30/2024 [facility] Comment on above: Expected: 07/31/2024 (Approximate), Expires: 10/30/2024 Start: 07-31-2024 End: 10-30-2024 FISH FOR CLL FISH FOR CLL Lab Routine CLL (chronic lymphocytic leukemia) (HCC) Expected: 07/31/2024 (Approximate), Expires: 10/30/2024 [facility] Comment on above: Expected: 07/31/2024 (Approximate), Expires: 10/30/2024 Start: 07-31-2024 End: 10-30-2024 FLOW CYTOMETRY FOR LEUKEMIA/LYMPHOMA (FCLL) FLOW CYTOMETRY FOR LEUKEMIA/LYMPHOMA (FCLL) Lab Routine CLL (chronic lymphocytic leukemia) (HCC) Expected: 07/31/2024 (Approximate), Expires: 10/30/2024 [facility] Comment on above: Expected: 07/31/2024 (Approximate), Expires: 10/30/2024 Start: 07-31-2024 End: 10-30-2024 JAK2 gene targeted mutation analysis in Blood or Tissue by Molecular genetics method [id number] MUTATION BLOOD Lab Routine CLL (chronic lymphocytic leukemia) (HCC) Other specified diseases of blood and blood-forming organs Expected: 07/31/2024, Expires: 10/30/2024 [facility] Comment on above: Expected: 07/31/2024 , Expires: 10/30/2024 Start: 07-31-2024 End: 10-30-2024 Lactate dehydrogenase [Enzymatic activity/volume] in Serum or Plasma LACTATE DEHYDROGENASE Lab Routine CLL (chronic lymphocytic leukemia) (HCC) Expected: 07/31/2024 (Approximate), Expires: 10/30/2024 [facility] Comment on above: Expected: 07/31/2024 (Approximate), Expires: 10/30/2024 Start: 07-19-2024 End: 07-19-2024 Patient encounter procedure 07/19/2024 12:20 PM EDT Office Visit [facility] Internal Medicine - Family Medicine [address] [place] [address] [facility] Internal Medicine - Family Medicine Start: 07-18-2024 Adult BMI Screening Adult BMI Screen ing [facility] Start: 07-18-2024 Depression Screening Depression Scre ening [facility] Start: 07-18-2024 Fall Risk Screening Fall Risk Screen ing [facility] Start: 07-18-2024 Medicare Annual Wellness Visit Medicare Annual Wellness Visit [facility] Start: 07-12-2024 End: 07-12-2024 Patient encounter procedure 07/12/2024 1:15 PM EDT Appointment Radiology Pet CT [address] [place] [address] [place] [address] CT CAP W IV CON Radiology Pet CT Comment on above: CT CAP W IV CON Start: 07-02-2024 End: 07-02-2024 Patient encounter procedure 07/02/2024 3:00 PM EDT Office Visit [facility] [address] [place] [address] Sweetie Pop MD [address] [facility], [address] [place] [address] [facility] Start: 06-30-2024 End: 06-01-2025 CT Abdomen and Pelvis W contrast IV CT ABD/PEL W IVCON Radiology Routine CLL (chronic lymphocytic leukemia) (HCC) Expected: 06/30/2024, Expires: 06/01/2025 [facility] Work Phone: Comment on above: Expected: 06/30/2024 , Expires: 06/01/2025 Start: 06-30-2024 End: 06-01-2025 CT Chest W contrast IV CT CHEST W IVCON Radiology Routine CLL (chronic lymphocytic leukemia) (HCC) Expected: 06/30/2024, Expires: 06/01/2025 [facility] Comment on above: Expected: 06/30/2024 , Expires: 06/01/2025 Start: 05-24-2024 Adult BMI Screening Adult BMI Screen ing [facility] Start: 05-24-2024 Depression Screening Depression Scre ening [facility] Start: 05-24-2024 Fall Risk Screening Fall Risk Screen ing [facility] Start: 05-24-2024 Tobacco Screening Tobacco Screening [facility] Start: 05-18-2024 End: 05-18-2024 Telemedicine consultation with patient 05/18/2024 8:00 AM EST Telemedicine [facility] [address] [address] [facility] [address] [place] [id number] [place] [address] [place] [address] [facility] Start: 05-03-2024 End: 08-02-2024 CBC W Auto Differential panel - Blood COMPLETE BLOOD COUNT AND DIFFERENTIAL Lab Routine CLL (chronic lymphocytic leukemia) (HCC) Expected: 05/03/2024 (Approximate), Expires: 08/02/2024 [facility] Comment on above: Expected: 05/03/2024 (Approximate), Expires: 08/02/2024 Start: 05-03-2024 End: 08-02-2024 Cobalamin (Vitamin B12) [Mass/volume] in Serum or Plasma VITAMIN B12 Lab Routine CLL (chronic lymphocytic leukemia) ([facility]) Expected: 05/03/2024 (Approximate), Expires: 08/02/2024 [facility] Comment on above: Expected: 05/03/2024 (Approximate), Expires: 08/02/2024 Start: 05-03-2024 End: 08-02-2024 Comprehensive metabolic 2000 panel - Serum or Plasma COMPREHENSIVE METABOLIC PANEL Lab Routine CLL (chronic lymphocytic leukemia) ([facility]) Expected: 05/03/2024 (Approximate), Expires: 08/02/2024 [facility] Comment on above: Expected: 05/03/2024 (Approximate), Expires: 08/02/2024 Start: 05-03-2024 End: 08-02-2024 Direct antiglobulin test.poly specific reagent [Presence] on Red Blood Cells [facility] Blood Bank Routine CLL (chronic lymphocytic leukemia) ([facility]) Expected: 05/03/2024 (Approximate), Expires: 08/02/2024 [facility] Comment on above: Expected: 05/03/2024 (Approximate), Expires: 08/02/2024 Start: 05-03-2024 End: 08-02-2024 Ferritin [Mass/volume] in Serum or Plasma FERRITIN Lab Routine CLL (chronic lymphocytic leukemia) ([facility]) Expected: 05/03/2024 (Approximate), Expires: 08/02/2024 [facility] Comment on above: Expected: 05/03/2024 (Approximate), Expires: 08/02/2024 Start: 05-03-2024 End: 08-02-2024 Folate [Mass/volume] in Serum or Plasma FOLATE, SERUM Lab Routine CLL (chronic lymphocytic leukemia) ([facility]) Expected: 05/03/2024 (Approximate), Expires: 08/02/2024 [facility] Comment on above: Expected: 05/03/2024 (Approximate), Expires: 08/02/2024 Start: 05-03-2024 End: 08-02-2024 Haptoglobin [Mass/volume] in Serum or Plasma HAPTOGLOBIN Lab Routine CLL (chronic lymphocytic leukemia) ([facility]) Expected: 05/03/2024 (Approximate), Expires: 08/02/2024 [facility] Comment on above: Expected: 05/03/2024 (Approximate), Expires: 08/02/2024 Start: 05-03-2024 End: 08-02-2024 Iron and Iron binding capacity panel - Serum or Plasma IRON AND TIBC Lab Routine CLL (chronic lymphocytic leukemia) (HCC) Expected: 05/03/2024 (Approximate), Expires: 08/02/2024 [facility] Comment on above: Expected: 05/03/2024 (Approximate), Expires: 08/02/2024 Start: 05-03-2024 End: 08-02-2024 Lactate dehydrogenase [Enzymatic activity/volume] in Serum or Plasma LACTATE DEHYDROGENASE Lab Routine CLL (chronic lymphocytic leukemia) (HCC) Expected: 05/03/2024 (Approximate), Expires: 08/02/2024 [facility] Comment on above: Expected: 05/03/2024 (Approximate), Expires: 08/02/2024 Start: 05-03-2024 End: 05-03-2024 Patient encounter procedure 05/03/2024 1:00 PM EST [facility] [address] [place] [address] Blaise Marie DO [address] [place] [address] [facility] - [facility] Start: 05-02-2024 End: 05-02-2024 Follow-up encounter 05/02/2024 1:30 PM EST Visit (SP) Office Hematology/Oncology [address] [facility] [place] [address] Danis Self MD [address] [place] [address] 3 MONTH FOLLOW UP Hematology/Oncology Comment on above: 3 MONTH FOLLOW UP Start: 05-02-2024 End: 05-02-2024 Patient encounter procedure 05/02/2024 1:15 PM EST Office Visit [facility] [address] [facility] [place] [address] 3 MONTH FOLLOW UP [facility] Comment on above: 3 MONTH FOLLOW UP Start: 04-11-2024 Advance Directive Discussion Advance Directive Discussion [facility] Start: 04-05-2024 Adult BMI Screening Adult BMI Screen ing [facility] Start: 04-05-2024 Depression Screening Depression Scre ening [facility] Start: 04-05-2024 Fall Risk Screening Fall Risk Screen ing [facility] Start: 04-05-2024 Tobacco Screening Tobacco Screening [facility] Start: 02-21-2024 Covid-19 Vaccine () Covid-19 Vaccine () [facility] Start: 02-21-2024 COVID-19 Vaccine () COVID-19 Vaccine () [facility] Start: 02-21-2024 COVID-19 Vaccine () COVID-19 Vaccine () [facility] Start: 02-03-2024 End: 05-04-2024 CBC W Auto Differential panel - Blood CBC + DIFF Lab Routine Monoclonal B-cell lymphocytosis Expected: 02/03/2024 (Approximate), Expires: 05/04/2024 [facility] Work Phone: Comment on above: Expected: 02/03/2024 (Approximate), Expires: 05/04/2024 Start: 02-03-2024 End: 05-04-2024 Comprehensive metabolic 2000 panel - Serum or Plasma COMP METABOLIC PANEL Lab Routine Monoclonal B-cell lymphocytosis Expected: 02/03/2024 (Approximate), Expires: 05/04/2024 [facility] Work Phone: Comment on above: Expected: 02/03/2024 (Approximate), Expires: 05/04/2024 Start: 02-03-2024 End: 05-04-2024 Lactate dehydrogenase [Enzymatic activity/volume] in Serum or Plasma LD LACTATE DEHYDRO Lab Routine Monoclonal B-cell lymphocytosis Expected: 02/03/2024 (Approximate), Expires: 05/04/2024 [facility] Work Phone: Comment on above: Expected: 02/03/2024 (Approximate), Expires: 05/04/2024 Start: 02-01-2024 End: 05-02-2024 BCR/ABL1 P190 QUANTITATIVE PCR BLOOD [facility] Comment on above: Expected: 02/01/2024 , Expires: 05/02/2024 Start: 02-01-2024 End: 05-02-2024 BCR/ABL1 P210 QUANTITATIVE PCR BLOOD [facility] Comment on above: Expected: 02/01/2024 , Expires: 05/02/2024 Start: 02-01-2024 End: 05-02-2024 IgG [Mass/volume] in Serum or Plasma [facility] Work Phone: Comment on above: Expected: 02/01/2024 , Expires: 05/02/2024 Start: 01-26-2024 End: 01-26-2024 Patient encounter procedure 01/26/2024 8:[address] [facility] Cardi[facility] [address] [place] [address] Blaise Marie, DO [address] [place] [address] [facility] Start: 01-12-2024 End: 01-12-2024 Patient encounter procedure 01/12/2024 2:00 PM EDT Office Visit [facility] Internal Medicine - Family Medicine [address] [place] [address] Blaise Marie, DO [address] [place] [address] [facility] Internal Medicine - Family Medicine Start: 01-03-2024 End: 01-03-2024 Patient encounter procedure 01/03/2024 1:00 PM EDT Office Visit [facility] Internal Medicine - Family Medicine [address] [place] [address] Blaise Marie, DO [address] [facility] [place] [address] [facility] Internal Medicine - Family Medicine Start: 12-29-2023 End: 12-28-2024 Echo complete W/O contrast Echo complete W/O contrast Echocardiography Routine Orthostatic dizziness Pulmonary hypertension ([facility]) Expected: 12/29/2023, Expires: 12/28/2024 [facility] Work Phone: Comment on above: Expected: 12/29/2023 , Expires: 12/28/2024 Start: 12-29-2023 End: 12-29-2023 Patient encounter procedure 12/29/2023 12:30 PM EDT Office Visit [facility] Internal Medicine - Family Medicine [address] [place] [address] Blaise Marie, DO [address] [place] [address] [facility] - [facility] Start: 12-11-2023 COVID-19 Vaccine ( season) COVID-19 Vaccine ( season) [facility] Start: 12-11-2023 Influenza vaccination Influenza Vacc ine [facility] Start: 10-25-2023 End: 10-25-2023 Patient encounter procedure [facility] Start: 09-07-2023 End: 09-07-2023 Patient encounter procedure 09/07/2023 1:00 PM EDT Office Visit [facility] Internal Medicine - Family Medicine [address] [place] [address] Blaise Marie, DO [address] [place] [address] [facility] - [facility] Start: 08-09-2023 End: 08-09-2023 Patient encounter procedure 08/09/2023 11:30 AM EDT Office Visit [facility] [address] [place] [address] [place] [address] [place] [phone] Shani Burt MD [address] [place], [place] [id number] [facility] Start: 07-19-2023 End: 07-19-2023 Patient encounter procedure 07/19/2023 1:00 PM EDT Office Visit [facility] Internal Medicine - Family Medicine [address] [place] [address] [facility] Start: 07-09-2023 Medicare Annual Wellness Visit Medicare Annual Wellness Visit [facility] Start: 04-29-2023 End: 04-29-2023 Telemedicine consultation with patient 04/29/2023 9:20 AM EST Telemedicine [facility] [address] [address] [place] [address] [place] [address] [place] [address] [facility] Start: 04-27-2023 End: 04-27-2023 Patient encounter procedure 04/27/2023 11:00 AM EST Appointment [facility] Imaging [address] [place] [address] [facility] Start: 04-11-2023 Advance Directive Discussion Advance Directive Discussion [facility] Start: 03-02-2023 End: 06-01-2023 PROTEIN ELECTROPHORESIS SERUM W/INTERP PROTEIN ELECTROPHORESIS SERUM W/INTERP Lab Routine Monoclonal B-cell lymphocytosis Expected: 03/02/2023 (Approximate), Expires: 06/01/2023 [facility] Work Phone: Comment on above: Expected: 03/02/2023 (Approximate), Expires: 06/01/2023 Start: 02-24-2023 COVID-19 Vaccine (4 - Pfizer risk series) COVID-19 Vaccine (4 - Pfizer risk series) [facility] Start: 02-24-2023 COVID-19 Vaccine () COVID-19 Vaccine () [facility] Start: 02-24-2023 Covid-19 Vaccine () Covid-19 Vaccine () [facility] Start: 02-24-2023 COVID-19 Vaccine () COVID-19 Vaccine () [facility] Start: 02-11-2023 VIRFUVSALVADOR, Provider : Sweetie Pop, Status: Pen, Time: 10:30 AM VIRFUVHOMGonzalo, Provider: Sweetie Pop, Status: Elvis, Time: 10:30 AM TU-Moqrbfywdd-Nveijz [place] A Work Phone: Start: 02-02-2023 End: 05-04-2023 MONOCLONAL PROTEIN, SERUM (BLOOD) [facility] Work Phone: Comment on above: Expected: 02/02/2023 , Expires: 05/04/2023 Start: 11-19-2022 FUV, Provider: Sweetie Pop, Status: Pen, Time: 10:30 AM FUV, Provider: Sweetie Pop, Status: Pen, Time: 10:30 AM SB-Xenpbkeiub-Ljwjcrt e 2100 DO Work Phone: Start: 08-06-2022 VIRFUVSALVADOR, Provider : Sweetie Pop, Status: Pen, Time: 10:15 AM VIRFUVHOME, Provider: Sweetie Pop, Status: Pen, Time: 10:15 AM NW-Ffxlkrghxv-Jnzrcgd e 2100 DO Work Phone: Start: 04-11-2022 Advance Directive Discussion Advance Directive Discussion [facility] Start: 04-11-2022 Depression Assessment Depression Ass essment [facility] Start: 03-26-2022 FUV, Provider: Sweetie Pop, Status: Pen, Time: 10:00 AM FUV, Provider: Sweetie Pop, Status: Pen, Time: 10:00 AM BG-Xquckffwhf-Gsrjepz e 2100 DO Work Phone: Start: 10-09-2021 VIRJEFF, Provider : Rodriguez Quiroz, Status: Pen, Time: 8:20 AM VIRFUVHOME, Provider: Rodriguez Quiroz, Status: Pen, Time: 8:20 AM MG-Infectious Disease-[facility] Bo Work Phone: Start: 09-25-2021 FUV, Provider: Sweetie Pop, Status: Pen, Time: 10:00 AM FUV, Provider: Sweetie Pop, Status: Pen, Time: 10:00 AM MG-Infectious Disease-[facility] Sixes Work Phone: Start: 06-12-2021 VIRFUCARLINE, Provider : Rodriguez Quiroz, Status: Pen, Time: 9:40 AM VIRFUVHOME, Provider: Rodriguez Quiroz, Status: Pen, Time: 9:40 AM BT-Ujmwybubfy-Uwescbu e 2100 DO Work Phone: Start: 05-15-2021 VIRJEFF, Provider : Sweetie Pop, Status: Pen, Time: 10:15 AM VIRFUVHOME, Provider: Sweetie Pop, Status: Pen, Time: 10:15 AM BK-Cluxfbmkbg-Fyjljkk e 2100 DO Work Phone: Start: 1956 Anxiety Screening Anxiety Screening [facility] Start: 1956 Depression Screening Depression Scre ening [facility] Start: 1956 Diabetes mellitus screening Diabetes Screening [facility] Start: 1938 Lipid panel Lipid Panel [facility] Start: 1938 Medicare Annual Wellness Visit Medicare Annual Wellness Visit (AWV) [facility] Start: 1938 Thyroid stimulating hormone measurement TSH Level [facility] End: 02-13-2025 Bacteria identified in Urine by Culture Urine Culture Microbiology Routine Lower urinary tract symptoms (LUTS) 1 Occurrences starting 02/14/2024 until 02/13/2025 [employer] Work Phone: Comment on above: 1 Occurrences starti ng 02/14/2024 until 02/13/2025 End: 05-24-2024 CBC panel - Blood by Automated count CBC without diff Lab Routine Chronic obstructive pulmonary disease, unspecified COPD type ([facility]) 1 Occurrences starting 05/24/2023 until 05/24/2024 [employer] Work Phone: Comment on above: 1 Occurrences starti ng 05/24/2023 until 05/24/2024 CBC panel - Blood by Automated count CBC without diff Lab Routine Chronic obstructive pulmonary disease, unspecified COPD type ([facility]) 05/24/2023 9:52 PM [facility] CBC W Auto Differential panel - Blood CBC + DIFF Lab Routine Monoclonal B-cell lymphocytosis 02/02/2023 3:25 PM EDT [facility] Work Phone: CBC W Auto Differential panel - Blood COMPLETE BLOOD COUNT AND DIFFERENTIAL Lab Routine CLL (chronic lymphocytic leukemia) ([facility]) 02/01/2024 12:37 PM EDT [facility] End: 08-11-2024 Comprehensive metabolic 2000 panel - Serum or Plasma Comprehensive metabolic panel Lab Routine Bronchiectasis without complication (CMS/HCC) 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) q 3 month for 4 Occurrences starting 02/11/2023 until 08/11/2024 [facility] Work Phone: Comment on above: q 3 month for 4 Occu rrences starting 02/11/2023 until 08/11/2024 End: 02-12-2024 IgG [Mass/volume] in Serum or Plasma IgG Lab Routine Bronchiectasis without complication (CMS/HCC) 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 Planned Goals not documented [facility] Work Phone: Immunizations Immunization Date Immunization Notes Care Provider Christiano simon 12-27-2023 influenza, high dose seasonal, preservative-free Blaise Marie DO Work Phone: [facility] 01-21-2023 respiratory syncytia l virus (RSV) vaccine, adjuvanted (AREXVY) Tristin Campbell MD Work Phone: [facility] 01-21-2023 tetanus toxoid, redu leatha diphtheria toxoid, and acellular pertussis vaccine, adsorbed Tristin Campbell MD Work Phone: [facility] 12-30-2022 influenza (HD-IIV4) vaccine, age 65+ yr, high dose, quadrivalent, PF (FLUZONE HIGH-DOSE) Tristin Campbell MD Work Phone: [facility] 12-30-2022 Pfizer COVID-19 vacc ine, Fall 2022, 12 years and older, (30mcg/0.3mL) Sweetie Pop MD Work Phone: [facility] Work Phone: 12-30-2022 influenza virus vacc ine, unspecified formulation Blaise Marie DO Work Phone: [facility] 10-13-2022 zoster vaccine recombinant Tristin Campbell MD Work Phone: [facility] 08-10-2022 zoster vaccine recombinant Tristin Campbell MD Work Phone: [facility] 01-06-2022 Fluzone High-Dose Quadrivalent 0.7 ML Intramuscular Suspension Prefilled Syringe Blaise Marie Work Phone: [facility] 01-06-2022 Pfizer COVID-19 Vac Bivalent 30 MCG/0.3ML Intramuscular Suspension Blaise Greeneiva Work Phone: [facility] [facility] Work Phone: 08-12-2021 Comirnaty 30 MCG/0.3 ML Intramuscular Suspension Blaise Isaacrachael Work Phone: [facility] Work Phone: 01-28-2021 Fluad Quadrivalent 0 .5 ML Intramuscular Prefilled Syringe Blaise Ebony Marie Work Phone: [facility] 01-28-2021 Pfizer-BioNTech COVI D-19 Vacc 30 MCG/0.3ML Intramuscular Suspension Blaise Ebony Marie Work Phone: [facility] Work Phone: 05-28-2020 Pfizer-BioNTech COVI D-19 Vacc 30 MCG/0.3ML Intramuscular Suspension Blaise Beck Ned Work Phone: [facility] Work Phone: 05-05-2020 COVID-19, mRNA, LNP- S, PF, 100mcg/0.5mL Dose Blaise Marie DO Work Phone: [facility] 05-05-2020 Pfizer-BioNTech COVI D-19 Vacc 30 MCG/0.3ML Intramuscular Suspension Blaise Marie Work Phone: [facility] 01-11-2020 Fluad Quadrivalent 0 .5 ML Intramuscular Prefilled Syringe Blaise Marie Work Phone: [facility] 02-27-2019 pneumococcal polysaccharide vaccine, 23 valent Blaise Marie Work Phone: [facility] 12-28-2018 AS03 adjuvant Tristin Campbell MD Work Phone: [facility] 12-28-2018 Seasonal trivalent influenza vaccine, adjuvanted, preservative free Blaise L Yuhas Work Phone: [facility] 01-20-2018 influenza, high dose seasonal, preservative-free Blaise L Yuhas Work Phone: [facility] 01-18-2018 influenza, injectabl e, quadrivalent, contains preservative Tristin Campbell MD Work Phone: [facility] 04-29-2017 pneumococcal conjuga te vaccine, 13 valent; Translations: [Prevnar 13 Intramuscular Suspension] Rodriguez [facility] Comment on above: Series: 04-11-2017 pneumococcal conjuga te vaccine, 13 valent Blaise Beck Yuhas Work Phone: [facility] 01-23-2017 influenza, injectabl e, quadrivalent, contains preservative Blaise Beck Yuhas Work Phone: [facility] 02-23-2016 influenza, high dose seasonal, preservative-free Blaise L Yuhas Work Phone: [facility] 01-29-2015 influenza, high dose seasonal, preservative-free Blaise L Yuhas Work Phone: [facility] 02-12-2014 influenza, seasonal, injectable Blaise L Yuhas Work Phone: [facility] 02-06-2013 influenza virus vacc ine, whole virus Blaise Beck Yuhas Work Phone: [facility] 01-12-2012 influenza, seasonal, injectable Blaise L Yuhas Work Phone: [facility] 06-10-2011 pneumococcal polysaccharide vaccine, 23 valent Blaise Beck Yuhas Work Phone: [facility] Payers Date Payer Category Payer Commercial Indemnity [employer] [id number] 2018 Unknown 2003 Medicare [id number] 1959 Medicare [id number] 1959 Unknown [id number] 1938 Unknown [id number] 2.16.840.1.389635.3.579.2.5 93 1938 Unknown [id number] 2.16.840.1.158677.3.579.2.5 93 1938 Unknown [id number] 2.16.840.1.570423.3.579.2.3 56 1938 Unknown [id number] 2.16.840.1.340933.3.579.2.3 56 1938 Unknown [id number] 2.16.840.1.345314.3.579.2.3 56 1938 Unknown [id number] 2.16.840.1.714657.3.579.2.3 56 1938 Unknown [id number] 2.16.840.1.492873.3.579.2.1 286 1938 Unknown [id number] 2.16.840.1.984997.3.579.2.1 286 1938 Unknown [id number] 2.16.840.1.400989.3.579.2.1 286 1938 Unknown [id number] 2.16.840.1.397155.3.579.2.1 286 1938 Unknown [id number] 2.16.840.1.172066.3.579.2.1 286 1938 Unknown [id number] 2.16.840.1.627550.3.579.2.1 286 1938 Unknown [id number] 2.16.840.1.434209.3.579.2.1 286 1938 Unknown [id number] 2.16.840.1.078245.3.579.2.1 286 1938 Unknown [id number] 2.16.840.1.181666.3.579.2.1 286 1938 Unknown [id number] 2.16.840.1.008820.3.579.2.1 286 1938 Unknown [id number] 2.16.840.1.999323.3.579.2.1 286 1938 Unknown [id number] 2.16.840.1.449344.3.579.2.1 [facility] 1940 Unknown [id number] 2.16.840.1.601384.3.579.2.1 1938 Unknown [id number] 2.16.840.1.781812.3.579.2.1 [facility] 1940 Unknown [id number] 2.16.840.1.124606.3.579.2.1 1938 Unknown [id number] 2.16.840.1.109753.3.579.2.1 [facility] 1940 Unknown [id number] 2.16.840.1.787726.3.579.2.1 1938 Unknown [id number] 2.16.840.1.461374.3.579.2.1 286 1938 Unknown [id number] 2.16.840.1.778865.3.579.2.1 1938 Unknown [id number] 2.16.840.1.605027.3.579.2.1 [facility] 1940 Unknown [id number] 2.16.840.1.030902.3.579.2.1 286 1938 Unknown [id number] 2.16.840.1.809924.3.579.2.1 286 1938 Unknown [id number] 2.16.840.1.096358.3.579.2.1 286 1938 Unknown [id number] 2.16.840.1.377674.3.579.2.1 286 1938 Unknown [id number] 2.16.840.1.881267.3.579.2.1 244 1938 Unknown [id number] 2.16.840.1.111017.3.579.2.1 [facility] 1940 Unknown [id number] 2.16.840.1.336314.3.579.2.1 244 1938 Unknown [id number] 2.16.840.1.330673.3.579.2.1 [facility] 1940 Unknown [id number] 2.16.840.1.623853.3.579.2.1 [facility] 1940 Unknown [id number] 2.16.840.1.983317.3.579.2.1 [facility] Social History Date Type Detail Facility Start: 02-02-2023 End: 03-17-2023 Former smoker Former smoker [facility] Start: 08-14-2021 End: 02-02-2023 Tobacco smoking status NHIS Ex-smoker [facility] History of tobacco use Current smoker [facility] History of tobacco use Cigarette Smoker [facility] History of tobacco use Passive smoker [facility] Start: 08-14-2021 End: 02-02-2023 Tobacco use and exposure Smokeless tobacco non-user [facility] Start: 02-02-2023 Alcohol intake Ex-drinker (finding) [facility] Start: 02-02-2023 End: 03-17-2023 Tobacco use panel [facility] National Score (1-10 0), lower number is lower risk 87 [facility] Start: 1940 Sex Assigned At Not on file [facility] Start: 02-11-2023 Tobacco smoking stat us NHIS Never smoked tobacco [facility] Start: 04-19-2023 End: 03-05-2024 Exposure to SARS-CoV-2 (event) Not sure [facility] Start: 1940 Sex Assigned At Male F [facility] Start: 12-15-2023 End: 12-29-2023 Alcoholic beverage intake Current drinker of alcohol (finding) [facility] Has the [place], or [employer] threatened to shut off services in your home in past 12Mo No [facility] Do you belong to any clubs or organizations such as yazidism groups, unions, fraternal or athletic groups, or school groups? Yes [facility] Are you now , , , , never or living with a partner? [facility] How often to you hav e a drink containing alcohol? Monthly or less [facility] How often do you hav e 6 or more drinks on 1 occasion? Never [facility] Do you feel stress - tense, restless, nervous, or anxious, or unable to sleep at night because your mind is troubled all the time - these days [OSQ] Only a little [facility] Start: 03-09-2022 Education 17 [facility] Start: 11-14-2014 Sex Male (finding) [facility] Start: 04-16-2018 Gender identity Identifies as male gender (finding) [facility] Start: 04-16-2018 Sexual orientation Heterosexual (fin rain) [facility] NEGATED: Highlighted row - - [facility]ag[facility]ic[facility] Work Phone: Goals Date Patient Goal Desired Activity /State Personal health goal Comment on above: Formatting of this n ote might be different from the original. Evaluation of progress towards goal: In progress: return home with . Functional Status Date Assessment Result Facility NEGATED: Highlighted row Functional performance Functional status health issues are not documented Disease NL-Wqefrvngts[facility]Ctu[facility] Work Phone: Mental Status Date Assessment Result Facility NEGATED: Highlighted row Cognitive function [Interpretation] Cognitive status health issues are not documented Disease QT[facility]Zls[facility]xccsy-Erm[facility] Work Phone: Clinical Notes 12-10-2018 to 05-11-2024 Rodriguez Quiroz MD - 05/11/2024 8:00 AM Kike Marie DO - 05/03/2024 1:00 PM ESTTelephone Encounter - Ros Obrien RN - 05/03/2024 11:31 AM ESTPatient InstructionsPatient Instructions Note Date & Type Note Facility 05-11-2024 History of Present illness Narrative Infectious Diseases Clinic Follow-up: Reason for Visit: Scheduled follow-up History of Current Issue Patient was last evaluated on 11/11/2023 TODAY I spoke to the patient by phone for evaluation Patient continues to follow-up with pulmonary medicine and allergy immunology for bronchiectasis, and CVID. Patient reports stable cough, continues to use oxygen 2 L at rest and 3 L with activity. Patient also continues to use percussion vest, Trelegy and hypertonic saline to mobilize secretions. Patient has had no hemoptysis In the past patient's sputum has grown both resistant and fairly susceptible Pseudomonas aeruginosa. In November 2023 sputum grew Serratia marcescens and the isolate were susceptible to ciprofloxacin, levofloxacin, TMP-SMX and tobramycin. On 04/26/2024 [facility] grew normal throat bryson At this time maintaining patient off antibiotics and treating periodically for flares that might be characterized by fevers, increased cough, change in sputum consistency for example. Upon review, patient denies fever, chills, rigors, chest pain, hemoptysis, night sweats, loss of appetite, weight loss, or headache. PAST MEDICAL HISTORY: Past Medical History: Diagnosis [...] reaction(s): Rash, itching Fish Containing Products Unknown Sulfa (Sulfonamide Antibiotics) Itching and Rash [...] by mouth once daily., Disp: , Rfl: tggotudzwrs-jmeotozay-bunbzzka (Trelegy Ellipta) 200-62.5-25 mcg blister with device, Inhale 1 puff once daily., Disp: , Rfl: levothyroxine (Synthroid, Levoxyl) 75 mcg tablet, Take 1 tablet (75 mcg) by mouth once daily., Disp: , Rfl: rivaroxaban (Xarelto) 20 mg tablet, Take 1 tablet (20 mg) by mouth., Disp: , Rfl: sodium chloride 3 % nebulizer solution, Take by nebulization if needed for cough., Disp: , Rfl: PHYSICAL EXAMINATION: Visit Vitals Smoking Status Never EXAM: Spoke to patient by phone for assessment ASSESSMENT / RECOMMENDATIONS: 1. Pseudomonas and Streptococcus pneumoniae airway colonization 04/26/2024 sputum grew normal throat bryson November 2023 sputum grew Serratia marcescens that was susceptible to ciprofloxacin, levofloxacin, TMP-SMX and tobramycin 2. Recurrent pseudomonas bronchitis/pneumonia 3. Bronchiectasis 4. Common variable immune deficiency/hypogammaglobulinemia 5. Kidney injury, improved after reducing aerosolized tobramycin to once daily (and after some reductions in IVIG dosing) 6. Chronic stable leukocytosis. Baseline appears to be in the 20,000 range. Has had higher numbers in the 45,000 range that were probably correlating with flares/pneumonia. 7. Haemophilus pneumonia in March 2023 8. May 2023 sputum grew mucoid Pseudomonas (susceptible to ceftazidime, cefepime, and intermediate to Cipro/levo; resistant to tobramycin) 9. July 2023 sputum grew susceptible Serratia (TMP-SMX, levo, ceftazidime, and tobramycin) Aerosolized tobramycin was discontinued early in 2022 when culture showed highly resistant mucoid Pseudomonas although it is likely the patient has a smaller viable population of susceptible Pseudomonas. Regardless during the interval patient has been doing well with increase pulmonary toileting with hypertonic saline and flutter valve use. Patient now following more regularly with pulmonary medicine in [facility] (Dr. Jacobson). Recent notes from Dr. Nava of reviewed. Patient reports probable bronchoscopy at the end of May 2024 for airway clearance and management. For now patient continues to use hypertonic saline, Trelegy, percussion vest and is mobilizing secretions fairly well. No overt clinical change in respiratory status. Today I reviewed strategy to treat periodically. Fortunately recent isolate Serratia and prior Pseudomonas aeruginosa have been susceptible to oral agents like levofloxacin which patient has been tolerated well. Will continue to treat for exacerbations. Not on chronic antibiotics which has helped avert emergence of more resistant bacteria. I have received regular notes from pulmonary office which is very helpful and greatly appreciated Again we discussed patient's status and my role as an infectious disease specialist. I did mention that patient has previously tolerated use of tobramycin and oral levofloxacin which could be used in the future. Also if patient has severe pneumonia and requires hospitalization empiric treatment with agents such as Zosyn or ceftazidime would be appropriate based on most recent (May 2022) sputum cultures. PLAN: 1. Continue to follow regularly with pulmonary (Dr. Jacobson) possible bronchoscopy planned for May 2024. 2. Follow-up with PCP, pulmonary and allergy-immunology 3. Patient can contact pulmonary or infectious diseases if he has exacerbation of bronchitis and/or pneumonia. During exacerbation would request sputum culture and treat empirically with levofloxacin x 10 days. 4. ID office staff will contact patient for 6-month phone follow-up. Patient to call with questions and nee I spent 30 minutes in the professional and overall care of this patient. Rodriguez Quiroz MD documented in this encounter [facility] Work Phone: 05-03-2024 History of Present illness Narrative IM PROGRESS NOTE Patient - Rashad Mcnair Age - 83 y.o. - 1940 [facility] # - [id number] ASSESSMENT & PLAN 1. Hypotension due to hypovolemia (Primary) -still with orthostatic changes on his blood pressure -encouraged him to make sure he is getting 2 L of fluid daily -encouraged him to stand slowly and deliberately -weight before walking -if he would start having more frequent symptomatic episodes, will probably need to start alpha agonist. 2. Chronic myeloproliferative disease ([facility]) -keep follow-up with Oncology as scheduled -I reviewed the lab results done at [facility] yesterday with the patient. Results were discussed. 3. Pulmonary hypertension ([facility]) -continue oxygen continuously with portability 4. 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 Chronic obstructive pulmonary disease, unspecified COPD type ([facility]) -now currently on Trelegy once daily -keep follow-up with pulmonology 6. Bronchiectasis ([facility]) -keep follow-up with pulmonology 7. Paroxysmal atrial fibrillation ([facility]) -currently on Xarelto for thromboembolism prophylaxis -not currently on medication for rate control due to hypotension 8. Chronic renal impairment, stage 3a ([facility]) -most recent GFR ranges 64-65 -continue renal protective strategies and monitor Subjective CARDIOVASCULAR FOLLOW-UP This is a follow up of a pre-existing problem. Blood pressures are being checked outside the office. Frequency: sporadic Readings have been low. BP readings outside the office range from 70-110 mmHg systolic and 60 - 69 mmHg diastolic. The ASCVD Risk score (Eddie DK, et al., 2019) failed to calculate for the following reasons: The 2019 ASCVD risk score is only valid for ages 40 to 79 Patient reports following dosing instructions Physical activity: The patient does not participate in regular exercise at present. Dietary efforts show fairly healthy diet with limited sugars and fats. CV symptoms review was positive for dizziness and lightheaded sensation when sitting or standing too quickly. Did have an episode where he nearly fell because of this. However did not have full LOC. A review of systems was negative except for the following: Psychiatric: Mild depression Hematological: Has CLL, recently was seen by Oncology. They want to do so recheck CT scan to check for adenopathy and splenomegaly Respiratory: Using his smart vest routinely. Using Trelegy instead of Anoro now. Is seeing pulmonology routinely. Using his oxygen continuously.. Exam BP 98/60 (BP Site: Left Arm, BP Postition: Sitting) Pulse 88 Temp 36.7 C (98.1 F) (Tympanic) Ht 177.8 cm (5' 10 ) Wt 65.2 kg (143 lb 12.8 oz) SpO2 94% Comment: 2L/min BMI 20.63 kg/m Physical Exam Vitals reviewed. Exam conducted with a sugar coating hand present (). Constitutional: General: He is not in acute [...] lower sternal border) heard. No gallop. Comments: See orthostatic blood pressure readings Pulmonary: Effort: Pulmonary effort is normal. Breath sounds: No wheezing or rales. Comments: Generally decreased movement is noted bilaterally all reynoso Abdominal: Palpations: Abdomen is soft. Musculoskeletal: Right lower leg: No edema (Trace). Left lower leg: No edema (Trace). Skin: General: Skin is warm and dry. Coloration: Skin is not jaundiced. Findings: No bruising. Neurological: Mental Status: He is alert and oriented to person, place, and time. Motor: No weakness. Coordination: Coordination normal. Psychiatric: Mood and Affect: Mood normal. Behavior: Behavior normal. Meds Current Outpatient Medications: TRELEGY ELLIPTA 200-62.5-25 mcg blister with device, Inhale 1 puff in the morning., Disp: , Rfl: acetaminophen (TYLENOL) 500 mg tablet, Take 1 [...] Rfl: 1 finasteride (PROSCAR) 5 mg tablet, Take 1 tablet (5 mg total) by mouth in the morning for 360 days., Disp: 90 tablet, Rfl: 3 IMMUN GLOB G,IGG,/PRO/IGA 0-50 (HIZENTRA SUBQ), Inject under the skin every 7 days. , Disp: , Rfl: levothyroxine (SYNTHROID, LEVOTHROID) 75 MCG tablet, take 1 tablet by mouth every day, Disp: 90 tablet, Rfl: 1 oxygen, Inhale 2 L/min as needed., Disp: , Rfl: sodium chloride 3 % nebulizer solution, , Disp: , Rfl: XARELTO 20 mg tablet tablet, TAKE 1 TABLET (20 MG TOTAL) BY MOUTH IN THE MORNING, Disp: 30 tablet, Rfl: 11 Lab Results Hospital Outpatient Visit on 04/26/2024 Component Date Value Ref Range Status Gram Stain Result 04/26/2024 >25 WHITE BLOOD CELLS/LPF Final Gram Stain Result 04/26/2024 0 to 1 SQUAMOUS EPITHELIAL CELLS/LPF Final Gram Stain Result 04/26/2024 0 CILIATED EPITHELIAL CELLS/LPF Final Gram Stain Result 04/26/2024 FEW GRAM POSITIVE COCCI Final Gram Stain Result 04/26/2024 RARE GRAM NEGATIVE RODS Final Gram Stain Result 04/26/2024 RARE GRAM POSITIVE RODS Final Culture 04/26/2024 NORMAL ORAL BRYSON Final Other Testing X-ray chest 2 views Result Date: 04/28/2024 Chest 2 views History: Acute bronchitis with bronchiectasis (CMS-HCC) Comparison: 12/15/2023 Findings: Chest 2 views. Changes with interstitial thickening in the right greater than the left lung are stable. Atherosclerotic thoracic aorta. Stable cardiomediastinal silhouette. No new focal opacity, effusion or pneumothorax. Impression: Stable chronic and/or fibrotic changes without definitive new or acute process. Finalized by Jose Morrison MD on 04/28/2024 5:17 PM Blaise Marie DO., [facility] Phys[facility] Office: [phone] documented in this encounter [facility] 05-03-2024 Telephone encounter Note Pt notified and agreeable to obtain and begin OTC meds, as recommended. Pt denies questions, needs or concerns at this time. Appt verified for f/u Ros Obrien RN [facility] 05-03-2024 Miscellaneous Notes Pt notified and agreeable to obtain and begin OTC meds, as recommended. Pt denies questions, needs or concerns at this time. Appt verified for f/u Ros Obrien RN Attempted to notify pt at home number, again deletes attempt. Will await call back from initial contact CRISTIANE left. Ros Obrien RN left on Sandro SAUER when dialed provided cell phone number. Detailed message to begin OTC meds, as recommended. Encouraged to call back with receipt of VM. Ros Obrien RN Please tell him to take OTC iron and vit C supplements, 1 tab daily for iron def anemia. Thank you. documented in this encounter [facility] 05-03-2024 Telephone encounter Note Attempted to notify pt at home number, again VM deletes attempt. Will await call back from initial contact VM left. Ros Obrien RN [facility] 05-03-2024 Telephone encounter Note VM left on Sandro SAUER when dialed provided cell phone number. Detailed message to begin OTC meds, as recommended. Encouraged to call back with receipt of VM. Ros Obrien RN [facility] 05-03-2024 Telephone encounter Note Please tell him to take OTC iron and vit C supplements, 1 tab daily for iron def anemia. Thank you. [facility] 05-02-2024 Instructions Danis Self MD - 05/02/2024 1:[address] PM EST Ordered [address] scans F/u in 3 months documented in this encounter [facility] 05-02-2024 History of Present illness Narrative PATIENT NAME: Rashad Mcnair CLINIC NO.: [id number] ATTENDING PHYSICIAN: Danis Self MD DATE OF SERVICE: 05/02/[address] Blaise Marie, thank you for referring Mr Rashad Mcnair for an opinion regarding Possible CLL. Some of the elements of this note have been copied from my previous progress note dated 02/01/24 . All the information has been reviewed carefully. CHIEF COMPLAINT: I have blood abnormalities HPI: Rashad Mcnair is a 82 year old year old [...] the patient mostly has neutrophilia and lymphocytosis. Visit 02/01/24: - Doing well - On 2 lit O2. On it for 1 year. - Denies any B symptoms. - Does IVIG injections every week at home. Being monitored by academic registrar at . 05/02/24: - Doing well - Remains on 2 lit O2. - No smoking - Occasional alcohol. Current Outpatient Medications Medication Sig fluticasone furoate (ARNUITY ELLIPTA) 200 mcg/actuation inhaler Inhale 1 Puff as instructed every other day. finasteride (PROSCAR) 5 mg tablet Take 5 mg by mouth once daily. ANORO ELLIPTA 62.5-25 mcg/actuation inhaler Inhale 1 Puff as instructed every other day. immun glob G,IgG,/pro/IgA 0-50 (HIZENTRA SUBCUTANEOUS) Inject subcutaneously. acetaminophen (TYLENOL) 500 mg tablet Take 500 mg by mouth every 6 hours as needed. atorvastatin (LIPITOR) 20 mg tablet Take 20 mg by mouth. Cholecalciferol, Vitamin D3, 50 mcg (2,000 unit) cap Take 2,000 Units by mouth. famotidine (PEPCID) 40 mg tablet Take 1 tablet by mouth once daily. levothyroxine (SYNTHROID) 75 mcg tablet Take 1 tablet by mouth once daily. rivaroxaban (XARELTO) 20 mg tablet Take 20 mg by mouth. sodium chloride (NEBUSAL) 3 % nebulizer solution Use 3 mL via nebulizer as needed. No current facility-administered medications for this visit. ALLERGIES Allergen Reactions Apixaban Itching Other reaction(s): Rash, itching Other reaction(s): Rash, itching Edoxaban Unknown Other reaction(s): Rash, itching Other reaction(s): Rash, itching Fish Containing Pro* Unknown Levofloxacin Unknown Penicillins Unknown Rivaroxaban Unknown Sulfa (Sulfonamide * Itching PAST MEDICAL HISTORY Diagnosis Date Bronchiectasis (HCC) Chronic renal impairment Mixed hyperlipidemia Secondary hypothyroidism No past surgical history on file. No family history on file. Social History Tobacco Use Smoking status: Former [...] tingling of hands/feet. No weakness. PHYSICAL EXAMINATION: There were no vitals taken for this visit. Wt 68.8 kg (151 lb 9.6 oz) [...] grossly intact. Rectal: Deferred : Deferred LABS: Glucose (mg/dL) Date Value 02/01/2024 117 Potassium (mmol/L) Date Value 02/01/2024 3.9 Sodium (mmol/L) Date Value 02/01/2024 134 Chloride (mmol/L) Date Value 02/01/2024 98 CO2 (mmol/L) Date Value 02/01/2024 27 Creatinine (mg/dL) Date Value 02/01/2024 1.29 BUN (mg/dL) Date Value 02/01/2024 23 08/01/2018 17 Anion Gap (mmol/L) Date Value 02/01/2024 9 Calcium, Total (mg/dL) Date Value 02/01/2024 9.1 Protein, Total (g/dL) Date Value 02/01/2024 6.2 Albumin (g/dL) Date Value 02/01/2024 3.8 11/14/2017 3.7 Bilirubin, Total (mg/dL) Date Value 02/01/2024 0.5 Alkaline Phosphatase (U/L) Date Value 02/01/2024 106 AST (U/L) Date Value 02/01/2024 14 ALT (U/L) Date Value 02/01/2024 8 WBC Date Value Ref Range Status 02/01/2024 30.45 (H) 3.70 - 11.00 k/uL Final RBC Date Value Ref Range Status 02/01/2024 3.62 (L) 4.20 - 6.00 m/uL Final Hemoglobin Date Value Ref Range Status 02/01/2024 10.9 (L) 13.0 - 17.0 g/dL Final Hematocrit Date Value Ref Range Status 02/01/2024 32.9 (L) 39.0 - 51.0 % Final MCV Date Value Ref Range Status 02/01/2024 90.9 80.0 - 100.0 fL Final MCH Date Value Ref Range Status 02/01/2024 30.1 26.0 - 34.0 pg Final MCHC Date Value Ref Range Status 02/01/2024 33.1 30.5 - 36.0 g/dL Final RDW-CV Date Value Ref Range Status 02/01/2024 14.3 11.5 - 15.0 % Final Platelet Count Date Value Ref Range Status 02/01/2024 264 150 - 400 k/uL Final MPV Date Value Ref Range Status 02/01/2024 10.8 9.0 - 12.7 fL Final Abs Neut (Segs + Bands) Date Value Ref Range Status 02/01/2024 24.09 (H) 1.45 - 7.50 k/uL Final Lymphocytes % Date Value Ref Range Status 02/01/2024 12.2 % Final Abs Lymph (Normal + Reactive) Date Value Ref Range Status 02/01/2024 3.71 1.00 - 4.00 k/uL Final Monocytes % Date Value Ref Range Status 02/01/2024 7.0 % Final Abs [place] Date Value Ref Range Status 02/01/2024 2.13 (H) <0.87 k/uL Final Eosin% Date Value Ref Range Status 02/01/2024 1.7 % Final Abs Eosin Date Value Ref Range Status 02/01/2024 0.52 (H) <0.46 k/uL Final Basophils % Date Value Ref Range Status 02/01/2024 0.0 % Final Abs Baso Date Value Ref Range Status 02/01/2024 0.00 <0.11 k/uL Final PATH: IMAGING: ASSESSMENT AND PLAN: Rashad Mcnair is a 82 year old year old male past medical history significant for BPH, 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 Peripheral blood flow cytometry in January 2023 showed findings consistent with the CLL. CBC today showed WBC 56 with ANC 37. Stable hgb and platelets. We will continue to monitor the CLL for now. BCR/ABL PCR negative in 01/2024. Check JAK2 mutation and FISH for CLL. Ordered CT scans to r/o lymphadenopathy and hepatosplenomegaly. He injects subcutaneous immunoglobulins every week at home. Follow-up with academic registrar at [facility]. Patient will continue to follow-up with pulmonary in regards to his bronchiectasis. Continue follow-up with cardiology in regards to his atrial fibrillation. Continue follow-up with Dr. Marie. F/u in 3 months. Total time spent [address] Blaise Marie, thank you for allowing me to participate in Mr Rashad Mcnair care, if there are any questions or concerns please do not hesitate to contact me at the number below. Danis Self M.D. Hematology/Medical Oncology [facility] [phone] CC: Blaise Marie, documented in this encounter [facility] 05-02-2024 Note HNO ID: [id number] Author: DANIS SELF MD Service: ? Author Type: Physician Type: Progress Notes Filed: 05/03/2024 10:54 Note Text: PATIENT NAME: Rashad Mcnair CLINIC NO.: [id number] ATTENDING PHYSICIAN: Danis Self MD DATE OF SERVICE: 05/02/[address] Blaise Marie, thank you for referring Mr Rashad Mcnair for an opinion regarding Possible CLL. Some of the elements of this note have been copied from my previous progress note dated 02/01/24 . All the information has been reviewed carefully. CHIEF COMPLAINT: I have blood abnormalities HPI: Rashad Mcnair is a 82 year old year old [...] the patient mostly has neutrophilia and lymphocytosis. Visit 02/01/24: - Doing well - On 2 lit O2. On it for 1 year. - Denies any B symptoms. - Does IVIG injections every week at home. Being monitored by academic registrar at . 05/02/24: - Doing well - Remains on 2 lit O2. - No smoking - Occasional alcohol. Current Outpatient Medications Medication Sig fluticasone furoate (ARNUITY ELLIPTA) 200 mcg/actuation inhaler Inhale 1 Puff as instructed every other day. finasteride (PROSCAR) 5 mg tablet Take 5 mg by mouth once daily. ANORO ELLIPTA 62.5-25 mcg/actuation inhaler Inhale 1 Puff as instructed every other day. immun glob G,IgG,/pro/IgA 0-50 (HIZENTRA SUBCUTANEOUS) Inject subcutaneously. acetaminophen (TYLENOL) 500 mg tablet Take 500 mg by mouth every 6 hours as needed. atorvastatin (LIPITOR) 20 mg tablet Take 20 mg by mouth. Cholecalciferol, Vitamin D3, 50 mcg (2,000 unit) cap Take 2,000 Units by mouth. famotidine (PEPCID) 40 mg tablet Take 1 tablet by mouth once daily. levothyroxine (SYNTHROID) 75 mcg tablet Take 1 tablet by mouth once daily. rivaroxaban (XARELTO) 20 mg tablet Take 20 mg by mouth. sodium chloride (NEBUSAL) 3 % nebulizer solution Use 3 mL via nebulizer as needed. No current facility-administered medications for this visit. ALLERGIES Allergen Reactions Apixaban Itching Other reaction(s): Rash, itching Other reaction(s): Rash, itching Edoxaban Unknown Other reaction(s): Rash, itching Other reaction(s): Rash, itching Fish Containing Pro* Unknown Levofloxacin Unknown Penicillins Unknown Rivaroxaban Unknown Sulfa (Sulfonamide * Itching PAST MEDICAL HISTORY Diagnosis Date Bronchiectasis (HCC) Chronic renal impairment Mixed hyperlipidemia Secondary hypothyroidism No past surgical history on file. No family history on file. Social History Tobacco Use Smoking status: Former [...] tingling of hands/feet. No weakness. PHYSICAL EXAMINATION: There were no vitals taken for this visit. Wt 68.8 kg (151 lb 9.6 oz) [...] and reactive to light. Extraocular movements are int (more content not included)... [facility] 03-11-2024 Evaluation + Plan note Associated Problem(s): CVID (common variable immunodeficiency) Last IgG level was adequate, but there is some room to increase his dose if needed. He recently had an episode of pneumonia, but he currently feels good. Repeat IgG level in 4 months with CMP (if needed) prior to next visit Continue Hizentra weekly. [facility] Work Phone: 03-11-2024 Miscellaneous Notes Associated Problem(s): CVID (common variable immunodeficiency) Last IgG level was adequate, but there is some room to increase his dose if needed. He recently had an episode of pneumonia, but he currently feels good. Repeat IgG level in 4 months with CMP (if needed) prior to next visit Continue Hizentra weekly. documented in this encounter [facility] Work Phone: 03-05-2024 History of Present illness Narrative Subjective Rashad Mcnair is a 83 y.o. male who presents for CVID. Chief Complaint Patient presents with CVID Patient presents for 4 month F/U of CVID. Since last visit, 10-31-23, patient reports in Nov 2023, he was given levofloxacin for cough and increased sputum production per Dr. Quiroz, ID. Changing Anoro to Arnuity, but will first use up all he has at home. He is doing well. He was last seen about 3 months ago. No procedures. Last bronchoscopy was in November. Had Urinary infection about 3 weeks ago and he required antibiotics. He had an episode of coughing that resulted in syncope. He did not strike his head. He fell on top of his spouse. Physical Exam Constitutional: Appearance: Normal appearance. HENT: Head: Normocephalic and atraumatic. Right Ear: External ear normal. There is no impacted cerumen. Left Ear: External ear normal. There is no impacted cerumen. Nose: No congestion or rhinorrhea. Eyes: Extraocular Movements: Extraocular movements intact. Conjunctiva/sclera: Conjunctivae normal. Pupils: Pupils are equal, round, and reactive to light. Cardiovascular: Rate and Rhythm: Normal rate and regular rhythm. Heart sounds: No murmur heard. No friction rub. No gallop. Pulmonary: Effort: No respiratory distress. Breath sounds: Wheezing and rhonchi present. No rales. Skin: General: Skin is warm and dry. Neurological: Mental Status: He is alert. Psychiatric: Mood and Affect: Mood normal. Behavior: Behavior normal. Assessment/Plan CVID (common variable immunodeficiency) Last IgG level was adequate, but there is some room to increase his dose if needed. He recently had an episode of pneumonia, but he currently feels good. Repeat IgG level in 4 months with CMP (if needed) prior to next visit Continue Hizentra weekly. documented in this encounter [facility] Work Phone: 03-05-2024 Instructions Sweetie Pop MD - 03/05/2024 3:15 PM EST Continue Hizentra 7 g weekly infusions. Follow up in 4 months or sooner if problems or symptoms worsen prior. Labs prior to next appointment documented in this encounter [facility] Work Phone: 02-14-2024 History of Present illness Narrative Patient presents with complaints of urinary frequency for the past several days. Denies any visible blood, dysuria or pyuria. -he presented today and left a urine specimen for testing Lab: UA cloudy with 1+ blood, large leukocyte esterase and negative nitrites. Protein 3+. Impression: Lower urinary tract symptoms -no obvious UTI based on POCT urinalysis -will send for culture -no treatment started at this time documented in this encounter [facility] 02-13-2024 Miscellaneous Notes Pt called wanting to know if her could come in for a nurse visit he thinks he's got a UTI? Message noted. Yes I got him in for a nurse visit at 1330 [facility] 02-13-2024 Telephone encounter Note Pt called wanting to know if her could come in for a nurse visit he thinks he's got a UTI? [facility] 02-13-2024 Telephone encounter Note Message noted. [facility]13[facility]24 Telephone encounter Note I got him in for a nurse visit at 1330 [facility] 02-01-2024 History of Present illness Narrative IM PROGRESS NOTE Patient - Rashad Mcnair Age - 83 [facility] 1940 [id number] ASSESSMENT & PLAN 1. Hypotension due to hypovolemia (Primary) -orthostatic blood pressures today were unremarkable. -symptoms have resolved over the last several weeks with more attention to regular fluid intake. -he remains off all blood pressure medications (in addition to his rate-controlling agent metoprolol) -no changes today 2. Pulmonary hypertension ([facility] -I reviewed the results of his recent echocardiogram with the patient and . -has pulmonary hypertension which is expected given his disease process -it is splr-[id number] the current time, with little symptoms -continue continuous oxygen 3. Bronchiectasis ([facility]) -now has a smart vest which he is using regularly -seems to be mobilizing secretions better -no changes today 4. Chronic obstructive pulmonary disease, unspecified COPD type ([facility]) -stable Subjective 83-year-old male presents for recheck on problems with low blood pressure. Had been admitted to the hospital because of orthostatic dizziness in December of this year. His blood pressure medications were discontinued. It was noted that he had suboptimal fluid ingestion on follow-up, so he was encouraged to take 2000 cc fluid daily. -since last visit, he describes only 1 episode of feeling lightheaded or dizzy when standing. This lasted briefly, only seconds. -he initially was checking his blood pressure routinely, and readings were generally good , he thinks between 110-115 mmHg systolic. He stopped checking several weeks ago because he was not having symptoms. -he says he has been diligent about getting the correct amount of fluid every day. He is not limiting salt. -he underwent an echocardiogram to evaluate LV function. This proved to be normal with a LVEF of 60-65%. There is some qthi-ho-kejkemmo pulmonary hypertension noted. -he has not felt limited because of any dizziness or lightheadedness since last visit. A review of systems was negative except for the following: General: fatigue and weight loss ENT: hearing change Respiratory: Is wearing his oxygen continuously. Did get a smart vest, which he has been using twice daily. He does feel it is mobilizing sputum better. Occasionally feels like it gets caught in his upper airways, and he must take an additional nebulizer treatment to clear the secretions. Cardiovascular: edema and is present intermittently. Usually after standing or sitting for too long.. Exam BP 110/62 (BP Site: Right Arm, BP Postition: Sitting, BP CUFF SIZE: M (9-13 inches)) Pulse 74 Temp 36.7 C (98 F) (Oral) Ht 177.8 cm (5' 10 ) Wt 65.6 kg (144 lb 9.6 oz) SpO2 99% BMI 20.75 kg/m Physical Exam Vitals reviewed. Exam conducted with a sugar coating hand present (). Constitutional: General: He is not in acute [...] lower sternal border) heard. No gallop. Comments: See orthostatic blood pressure readings Pulmonary: Effort: Pulmonary effort is normal. Breath sounds: No wheezing or rales. Comments: Generally decreased movement is noted bilaterally all reynoso Abdominal: Palpations: Abdomen is soft. Musculoskeletal: Right lower leg: No edema (Trace). Left lower leg: No edema (Trace). Skin: General: Skin is warm and dry. [...] , Rfl: famotidine (PEPCID) 40 mg tablet, take 1 tablet by mouth every day, Disp: 90 tablet, Rfl: 1 finasteride (PROSCAR) 5 mg tablet, Take 1 tablet (5 mg total) by mouth in the morning for 360 days., Disp: 90 tablet, Rfl: 3 fluticasone furoate (ARNUITY ELLIPTA) 200 mcg/actuation blister with device, Inhale 1 puff in the morning., Disp: 60 each, Rfl: 0 IMMUN GLOB G,IGG,/PRO/IGA 0-50 (HIZENTRA SUBQ), Inject under the skin every 7 days. , Disp: , Rfl: levothyroxine (SYNTHROID, LEVOTHROID) 75 MCG tablet, take 1 tablet by mouth every day, Disp: 90 tablet, Rfl: 1 oxygen, Inhale 2 L/min as needed., Disp: , Rfl: sodium chloride 3 % nebulizer solution, , Disp: , Rfl: umeclidinium-vilanteroL (ANORO ELLIPTA) 62.5-25 mcg/actuation blister with device, INHALE 1 PUFF IN THE MORNING, Disp: 90 each, Rfl: 1 XARELTO 20 mg tablet tablet, TAKE 1 TABLET (20 MG TOTAL) BY MOUTH IN THE MORNING, Disp: 30 tablet, Rfl: 11 Lab Results Hospital Outpatient Visit on 01/26/2024 Component Date Value Ref Range Status LVOT stroke volume 01/26/2024 75.51 ml Final LV Systolic Volume 01/26/2024 26.90 mL Final EF 01/26/2024 64 % Final FS 01/26/2024 39 28 - 44 % Final LV Diastolic Volume 01/26/2024 73.90 mL Final LVIDd 01/26/2024 3.10 cm Final LVIDs 01/26/2024 1.90 cm Final IVS 01/26/2024 1.30 0.6 - 1.1 cm Final PW 01/26/2024 1.00 0.6 - 1.1 cm Final LVOT diameter 01/26/2024 2.10 cm Final TDI 01/26/2024 10.10 cm/s Final MV TDI E' (medial) 01/26/2024 6.64 cm/s Final LA Volume Index 01/26/2024 20.8 mL/m2 Final E/A ratio 01/26/2024 0.80 Final E wave deceleration time 01/26/2024 303.00 msec Final MV Peak E Valente 01/26/2024 63.40 cm/s Final MV Peak A Valente 01/26/2024 79.30 cm/s Final LA size 01/26/2024 3.30 cm Final Aortic root 01/26/2024 4.10 cm Final LA volume 01/26/2024 40.80 cm3 Final RV diastolic dimension (basal) 01/26/2024 30.0 mm Final TAPSE 01/26/2024 1.65 cm Final AV peak valente 01/26/2024 134.00 cm/s Final LVOT peak valente 01/26/2024 1.16 m/s Final AV VTI 01/26/2024 28.30 cm Final LVOT peak VTI 01/26/2024 21.80 cm Final AV mean gradient 01/26/2024 4.00 mmHg Final AV peak gradient 01/26/2024 7.18 mmHg Final AV valve area 01/26/2024 2.67 Final Valve area - Index 01/26/2024 1.4 Final MV pressure 1/2 time 01/26/2024 89.00 ms Final MV valve area p 1/2 method 01/26/2024 2.47 cm2 Final TR Peak Valente 01/26/2024 3.1 m/s Final TR peak gradient 01/26/2024 38.00 mmHg Final LV ESV A2C 01/26/2024 53.50 mL Final LV ESV A4C 01/26/2024 29.50 mL Final LV RWT 2D 01/26/2024 64.52 Final Echo EF Estimated 01/26/2024 64 % Final AV Velocity Ratio 01/26/2024 0.77 Final Left Ventricle Mass 01/26/2024 106.305241692447607 g Final Interventricular Septum Diastolic * 01/26/2024 13 cm Final TASV 01/26/2024 9.6 cm/s Final RA 2D Volume 01/26/2024 13.8 mL/m2 Final RA area 01/26/2024 14.0 cm2 Final RV Peak Systolic Pressure 01/26/2024 41 mmHg Final RA pressure (free text) 01/26/2024 3 mmHg Final Other Testing X-ray chest 1 view Result Date: 12/15/2023 History: Harsh coughing, and trouble breathing. Vomiting. Hypotension Exam/Technique: Portable upright AP chest Comparison: 07/04/2023 and contrast-enhanced chest CT from 04/27/2023 Findings: Increasing patchy infiltrate at the right lung base, suggestive of right lower lobe pneumonia. Scattered extensive increased markings elsewhere bilaterally appear to be at least primarily correspond to the extensive changes of bronchiectasis previously seen with CT. No pleural abnormalities displayed. Cardiac and mediastinal contours display no gross abnormalities . IMPRESSION: Increasing infiltrate right lung base, consistent with pneumonia superimposed on extensive chronic changes Finalized by Tony Rubi MD on 12/15/2023 2:57 PM Blaise Marie DO., [facility] Physicians Office: [phone] documented in this encounter [facility] 02-01-2024 History of Present illness Narrative PATIENT NAME: Rashad Mcnair CLINIC NO.: [id number] ATTENDING PHYSICIAN: Danis Self MD DATE OF SERVICE: February 01, 2024. Dear Dr. Blaise Marie, thank you for referring Mr Rashad Mcnair for an opinion regarding Possible CLL. Some of the elements of this note have been copied from previous progress note dated 02/02/23 . All the information has been reviewed carefully. CHIEF COMPLAINT: I have blood abnormalities HPI: Rashad Mcnair is a 82 year old year old [...] the patient mostly has neutrophilia and lymphocytosis. Visit 02/01/24: - Doing well - On 2 lit O2. On it for 1 year. - Denies any B symptoms. - Does IVIG injections every week at home. Being monitored by academic registrar at . Current Outpatient Medications Medication Sig fluticasone furoate (ARNUITY ELLIPTA) 200 mcg/actuation inhaler Inhale 1 Puff as instructed every other day. finasteride (PROSCAR) 5 mg tablet Take 5 mg by mouth once daily. ANORO ELLIPTA 62.5-25 mcg/actuation inhaler Inhale 1 Puff as instructed every other day. immun glob G,IgG,/pro/IgA 0-50 (HIZENTRA SUBCUTANEOUS) Inject subcutaneously. acetaminophen (TYLENOL) 500 mg tablet Take 500 mg by mouth every 6 hours as needed. atorvastatin (LIPITOR) 20 mg tablet Take 20 mg by mouth. Cholecalciferol, Vitamin D3, 50 mcg (2,000 unit) cap Take 2,000 Units by mouth. famotidine (PEPCID) 40 mg tablet Take 1 tablet by mouth once daily. levothyroxine (SYNTHROID) 75 mcg tablet Take 1 tablet by mouth once daily. rivaroxaban (XARELTO) 20 mg tablet Take 20 mg by mouth. sodium chloride (NEBUSAL) 3 % nebulizer solution Use 3 mL via nebulizer as needed. fluticasone-vilanterol (BREO ELLIPTA) 200-25 mcg/dose inhaler INHALE 1 PUFF INTO THE LUNGS EVERY DAY (Patient not taking: Reported on 02/01/2024) No current facility-administered medications for this visit. ALLERGIES Allergen Reactions Apixaban Itching Other reaction(s): Rash, itching Other reaction(s): Rash, itching Edoxaban Unknown Other reaction(s): Rash, itching Other reaction(s): Rash, itching Fish Containing Pro* Unknown Levofloxacin Unknown Penicillins Unknown Rivaroxaban Unknown Sulfa (Sulfonamide * Itching PAST MEDICAL HISTORY Diagnosis Date Bronchiectasis (HCC) Chronic renal impairment Mixed hyperlipidemia Secondary hypothyroidism No past surgical history on file. No family history on file. Social History Tobacco Use Smoking status: Former [...] of hands/feet. No weakness. PHYSICAL EXAMINATION: BP 97/61 Pulse 78 Temp 36.3 C (97.3 F) (Temporal) Resp 16 Ht 180.3 cm (5' 10.98 ) Wt 65.8 kg (145 lb 1 oz) SpO2 96% BMI 20.24 kg/m Wt 68.8 kg (151 lb 9.6 [...] grossly intact. Rectal: Deferred : Deferred LABS: Glucose (mg/dL) Date Value 02/01/2024 117 Potassium (mmol/L) Date Value 02/01/2024 3.9 Sodium (mmol/L) Date Value 02/01/2024 134 Chloride (mmol/L) Date Value 02/01/2024 98 CO2 (mmol/L) Date Value 02/01/2024 27 Creatinine (mg/dL) Date Value 02/01/2024 1.29 BUN (mg/dL) Date Value 02/01/2024 23 08/01/2018 17 Anion Gap (mmol/L) Date Value 02/01/2024 9 Calcium, Total (mg/dL) Date Value 02/01/2024 9.1 Protein, Total (g/dL) Date Value 02/01/2024 6.2 Albumin (g/dL) Date Value 02/01/2024 3.8 11/14/2017 3.7 Bilirubin, Total (mg/dL) Date Value 02/01/2024 0.5 Alkaline Phosphatase (U/L) Date Value 02/01/2024 106 AST (U/L) Date Value 02/01/2024 14 ALT (U/L) Date Value 02/01/2024 8 WBC Date Value Ref Range Status 02/01/2024 30.45 (H) 3.70 - 11.00 k/uL Preliminary RBC Date Value Ref Range Status 02/01/2024 3.62 (L) 4.20 - 6.00 m/uL Preliminary Hemoglobin Date Value Ref Range Status 02/01/2024 10.9 (L) 13.0 - 17.0 g/dL Preliminary Hematocrit Date Value Ref Range Status 02/01/2024 32.9 (L) 39.0 - 51.0 % Preliminary MCV Date Value Ref Range Status 02/01/2024 90.9 80.0 - 100.0 fL Preliminary MCH Date Value Ref Range Status 02/01/2024 30.1 26.0 - 34.0 pg Preliminary MCHC Date Value Ref Range Status 02/01/2024 33.1 30.5 - 36.0 g/dL Preliminary RDW-CV Date Value Ref Range Status 02/01/2024 14.3 11.5 - 15.0 % Preliminary Platelet Count Date Value Ref Range Status 02/01/2024 264 150 - 400 k/uL Preliminary MPV Date Value Ref Range Status 02/01/2024 10.8 9.0 - 12.7 fL Preliminary Abs Neut Date Value Ref Range Status 02/02/2023 14.40 (H) 1.45 - 7.50 k/uL Final Lymphocytes % Date Value Ref Range Status 02/02/2023 27.1 % Final Abs Lymph Date Value Ref Range Status 02/02/2023 6.62 (H) 1.00 - 4.00 k/uL Final Monocytes % Date Value Ref Range Status 02/02/2023 10.2 % Final Abs [place] Date Value Ref Range Status 02/02/2023 2.49 (H) <0.87 k/uL Final Abs Eosin Date Value Ref Range Status 02/02/2023 0.63 (H) <0.46 k/uL Final Basophils % Date Value Ref Range Status 02/02/2023 0.4 % Final Abs Baso Date Value Ref Range Status 02/02/2023 0.09 <0.11 k/uL Final PATH: IMAGING: ASSESSMENT AND PLAN: Rashad Mcnair is a 82 year old year old male past medical history significant for BPH, 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 Peripheral blood flow cytometry in January 2023 showed findings consistent with the CLL. CBC today showed stable blood counts. We will continue to monitor the CLL for now. Check BCR/ABL PCR. He injects subcutaneous immunoglobulins every week at home. Follow-up with academic registrar at [facility]. Patient will continue to follow-up with pulmonary in regards to his bronchiectasis. Continue follow-up with cardiology in regards to his atrial fibrillation. Continue follow-up with Dr. Marie. F/u in 3 months. Total time spent [address] Blaise Marie, thank you for allowing me to participate in Mr Rashad Mcnair care, if there are any questions or concerns please do not hesitate to contact me at the number below. Danis Self M.D. Hematology/Medical On[facility] [phone] CC: Blaise Marie, documented in this encounter [facility] 02-01-2024 Note HNO ID: [id number] Author: DANIS SELF MD Service: ? Author Type: Physician Type: Progress Notes Filed: 02/01/2024 13:30 Note Text: PATIENT NAME: Rashad Mcnair CLINIC NO.: [id number] ATTENDING PHYSICIAN: Danis Self MD DATE OF SERVICE: February 01, 2024. Dear Dr. Blaise Marie, thank you for referring Mr Rashad Mcnair for an opinion regarding Possible CLL. Some of the elements of this note have been copied from previous progress note dated 02/02/23 . All the information has been reviewed carefully. CHIEF COMPLAINT: I have blood abnormalities HPI: Rashad Mcnair is a 82 year old year old [...] the patient mostly has neutrophilia and lymphocytosis. Visit 02/01/24: - Doing well - On 2 lit O2. On it for 1 year. - Denies any B symptoms. - Does IVIG injections every week at home. Being monitored by academic registrar at . Current Outpatient Medications Medication Sig fluticasone furoate (ARNUITY ELLIPTA) 200 mcg/actuation inhaler Inhale 1 Puff as instructed every other day. finasteride (PROSCAR) 5 mg tablet Take 5 mg by mouth once daily. ANORO ELLIPTA 62.5-25 mcg/actuation inhaler Inhale 1 Puff as instructed every other day. immun glob G,IgG,/pro/IgA 0-50 (HIZENTRA SUBCUTANEOUS) Inject subcutaneously. acetaminophen (TYLENOL) 500 mg tablet Take 500 mg by mouth every 6 hours as needed. atorvastatin (LIPITOR) 20 mg tablet Take 20 mg by mouth. Cholecalciferol, Vitamin D3, 50 mcg (2,000 unit) cap Take 2,000 Units by mouth. famotidine (PEPCID) 40 mg tablet Take 1 tablet by mouth once daily. levothyroxine (SYNTHROID) 75 mcg tablet Take 1 tablet by mouth once daily. rivaroxaban (XARELTO) 20 mg tablet Take 20 mg by mouth. sodium chloride (NEBUSAL) 3 % nebulizer solution Use 3 mL via nebulizer as needed. fluticasone-vilanterol (BREO ELLIPTA) 200-25 mcg/dose inhaler INHALE 1 PUFF INTO THE LUNGS EVERY DAY (Patient not taking: Reported on 02/01/2024) No current facility-administered medications for this visit. ALLERGIES Allergen Reactions Apixaban Itching Other reaction(s): Rash, itching Other reaction(s): Rash, itching Edoxaban Unknown Other reaction(s): Rash, itching Other reaction(s): Rash, itching Fish Containing Pro* Unknown Levofloxacin Unknown Penicillins Unknown Rivaroxaban Unknown Sulfa (Sulfonamide * Itching PAST MEDICAL HISTORY Diagnosis Date Bronchiectasis (HCC) Chronic renal impairment Mixed hyperlipidemia Secondary hypothyroidism No past surgical history on file. No family history on file. Social History Tobacco Use Smoking status: Former [...] of hands/feet. No weakness. PHYSICAL EXAMINATION: BP 97/61 Pulse 78 Temp 36.3 ?C (97.3 ?F) (Temporal) Resp 16 Ht 180.3 cm (5' 10.98 ) Wt 65.8 kg (145 lb 1 oz) SpO2 96% BMI 20.24 kg/m? Wt 68.8 kg (151 lb 9.6 oz) BMI 21.14 kg/m2 Last 3 Encounter Wt Readings: Date: Wt: 02/02/2023 68.8 kg (151 lb 9.6 oz) General appearance:ECOG PERFORMANCE STATUS: 1- Restricted in physically strenuous activity. Carries out light duty. P (more content not included)... [facility] 02-01-2024 Instructions Danis Self MD - 02/01/2024 1:19 PM EDT Labs today and in 3 months F/u in 3 months documented in this encounter [facility] 12-29-2023 History of Present illness Narrative Subjective Patient ID: Rashad Mcnair is a 83 y.o. male. The patient is here today for discharge follow up from hospital. Transition of Care Med Rec completed? Yes Discharged medications: Medications have been reviewed and reconciled with the most recent facility discharge document. HPI The following portions of the patient's history were reviewed and updated as appropriate: current medications, past medical history, past social history, past surgical history, problem list, and medication reconciliation was completed including current medication and post discharge medication. He was admitted to the hospital because of orthostatic dizziness, along with concerns about recurrent pneumonia and worsened bronchiectasis. He did received IV fluids, and blood pressure improved. He was treated with IV antibiotics targeting Serratia, which had been noted on a previous bronchoscopy BAL. he did have adjustment to his medications. He did start using a smart vest while in the hospital, which did improve his sputum clearance. He was discharged home on Levaquin with a positive growth of pseudomonas from sputum culture. Since being at home, his lungs have not been a particular problem. He has his normal sputum and cough, but no worse than normal. The biggest issue has been low blood pressure readings, which range from 102-126 mmHg systolic. He does feel worse with the blood pressures are running low, with increased fatigue and weakness. He has not passed out, but does feel lightheaded when he stands too quickly. He is following a 2000 cc fluid control, and generally is around this total amount a daily basis. He is no longer taking tamsulosin. He has not actually passed out or blacked out. Review of Systems Constitutional: Positive for activity change and fatigue. Negative for appetite change, diaphoresis, fever and unexpected weight change. HENT: Positive for congestion, hearing loss and rhinorrhea. Negative for voice change. Eyes: Negative for visual disturbance. Respiratory: Positive for cough, shortness of breath and wheezing. Cardiovascular: Negative. Gastrointestinal: Negative. Endocrine: Negative. Genitourinary: Positive for frequency. Musculoskeletal: Negative. Skin: Negative. Neurological: Positive for weakness and light-headedness. Negative for dizziness and syncope. Psychiatric/Behavioral: Positive for decreased concentration and dysphoric mood. Objective Physical Exam Vitals reviewed. Exam conducted with a sugar coating hand present (). Constitutional: General: He is not in acute [...] lower sternal border) heard. No gallop. Comments: See orthostatic blood pressure readings Pulmonary: Effort: Pulmonary effort is normal. Breath [...] and Affect: Mood normal. Behavior: Behavior normal. Assessment/Plan Frank was seen today for follow-up.His lungs are stable and not really causing any issue at this time. Does have evidence of continued pseudomonas colonization once again in addition to recent Serratia pneumonia. This information was forwarded to his ID specialist and his academic registrar and electric motor fitter. Unfortunately, his main symptoms now are related to low blood pressure. He is off of all antihypertensives off of medications for prostate which could cause hypotension, and is not an antiarrhythmic which could cause hypotension. He is taking around 2000 cc of fluid daily. We need to start evaluating for other causes, including decreased LV function, before proceeding with any type of medical treatment through raised blood pressure (midodrine ). Patient may need to start wearing compression stockings as well. Diagnoses and all orders for this visit: Orthostatic dizziness - Echo complete W/O contrast; Future Pulmonary hypertension (CMS-HCC) - Echo complete W/O contrast; Future Bronchiectasis (CMS-HCC) - a smart vest has been ordered, and he has been contacted by the DME supplier - continue nebulizers 4 times daily -continue PEP device Chronic obstructive pulmonary disease, unspecified COPD type ([facility]) documented in this encounter [facility] 12-28-2023 Miscellaneous Notes FYI- Patient called stating that he believes he is experiencing some low BP 102/56. He will speak to you at his apt Message noted. documented in this encounter [facility] 12-28-2023 Telephone encounter Note FYI- Patient called stating that he believes he is experiencing some low BP 102/56. He will speak to you at his apt [facility] 12-28-2023 Telephone encounter Note Message noted. [facility] 12-28-2023 Miscellaneous Notes Patients wif called and he has been having labored breathing on and off all day, he comes in for his TCM tomorrow. Is there something that you vcan recoomend for the breathing? He said the it is better than what it was when he was in the hospital. Message noted. He should make sure he is using his oxygen Make sure he is using the nebulizer four times a day Has he been contacted by the [place] people yet? He is using the o2, his nebulizer 3 times a day, instructed him to try 4 times a day, smart vest did contact him. He did also want me to let you know that his bp was running low, last he checked it was 102/56. He plans on being here 12/28 at 12:30 he said to talk to him then Message noted. documented in this encounter [facility] 12-28-2023 Telephone encounter Note Patients wif called and he has been having labored breathing on and off all day, he comes in for his TCM tomorrow. Is there something that you vcan recoomend for the breathing? He said the it is better than what it was when he was in the hospital. [facility] 12-28-2023 Telephone encounter Note Message noted. He should make sure he is using his oxygen Make sure he is using the nebulizer four times a day Has he been contacted by the [employer] people yet? [facility] 12-28-2023 Telephone encounter Note He is using the o2, his nebulizer 3 times a day, instructed him to try 4 times a day, smart vest did contact him. He did also want me to let you know that his bp was running low, last he checked it was 102/56. He plans on being here 12/28 at 12:30 he said to talk to him then [facility] 12-28-2023 Telephone encounter Note Message noted. [facility] 12-19-2023 Miscellaneous Notes Not needed documented in this encounter [facility] 12-19-2023 Telephone encounter Note Not needed [facility] 12-19-2023 Miscellaneous Notes Needs TCM. Timer started 12/17/2023 Can we use 12:30 or 4:15 same day next week? Message noted. Yes LM on VM documented in this encounter [facility] 12-19-2023 Telephone encounter Note Needs TCM. Timer started 12/17/2023 [facility] 12-19-2023 Telephone encounter Note Can we use 12:30 or 4:15 same day next week? [facility] 12-19-2023 Telephone encounter Note Message noted. Yes [facility] 09-09-2024 Telephone encounter Note LM on VM [facility] 12-19-2023 Miscellaneous Notes Transition of Care (*required) *Additional Questions/Concerns Requiring PCP Follow-Up: 1. Blood cultures pending, no growth 3 days. 2. Office please contact patient to schedule TCV if patient needs to be seen sooner than previously scheduled Established Patient visit on 01.03.24. 3. Patient states PCP planned to order new Smart Vest on 12.19.23. 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 *Medication Review Completed: No New medications: fluticasone furoate (ARNUITY ELLIPTA) - pharmacy had to order levoFLOXacin (LEVAQUIN) - taking predniSONE (DELTASONE) - taking Medication Reconciliation Questions/Concerns: None *Follow Up Appointments with Providers: Primary: Blaise Marie Jr, DO - previously scheduled Established Patient visit - more than 14 days from discharge - patient says PCP told him to just keep this appointment Specialty: Specialty: Specialty: Review of Pending Lab/Diagnostic Tests and Plan for Completion: Blood cultures pending, no growth 3 days. Assessment and Support of Treatment Regimen Adherence and Medication Management: Independent with medications and treatment regime. Lives with who is able to provide transportation and assistance if needed. Denies need for any DME. Uses home oxygen at 2L/NC, was told to increase to 3L with ambulation. Says he wears his oxygen as needed. More when the humidity is high. New smart vest to be ordered on discharge. Patient says PCP told him would be ordered today. Confirms 2000 ml fluid restriction. Denies fever, chills, nausea, vomiting. Still coughing, mostly non productive. Says he does produce small amounts of sputum at times. Recently had a bronchoscopy and is producing much less sputum since then. Hoping to get started using his new smart vest before he starts building up mucus in his lungs again. Denies shortness of breath, wheezing, chest pain. Says he is doing very well . Denies any needs. Education Provided by [facility] to Support Self-Management, Independent Living and ADLs: - new medications. - discharge instructions - s/s infection - call the office for questions, concerns, new, worsening or reoccurring s/s - call 911 for urgent issues such as chest pain, sudden dyspnea Verbalizes understanding of above. Communication with Home Health Agencies and Other Services Utilized/Needed by the Patient: NA Tcm scheduled 12/28 documented in this encounter [facility] 12-19-2023 Telephone encounter Note Transition of Care (*required) *Additional Questions/Concerns Requiring PCP Follow-Up: 1. Blood cultures pending, no growth 3 days. 2. Office please contact patient to schedule TCV if patient needs to be seen sooner than previously scheduled Established Patient visit on 01.03.24. 3. Patient states PCP planned to order new Smart Vest on 12.19.23. 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 *Medication Review Completed: No New medications: fluticasone furoate (ARNUITY ELLIPTA) - pharmacy had to order levoFLOXacin (LEVAQUIN) - taking predniSONE (DELTASONE) - taking Medication Reconciliation Questions/Concerns: None *Follow Up Appointments with Providers: Primary: Blaise Marie Jr, DO - previously scheduled Established Patient visit - more than 14 days from discharge - patient says PCP told him to just keep this appointment Specialty: Specialty: Specialty: Review of Pending Lab/Diagnostic Tests and Plan for Completion: Blood cultures pending, no growth 3 days. Assessment and Support of Treatment Regimen Adherence and Medication Management: Independent with medications and treatment regime. Lives with who is able to provide transportation and assistance if needed. Denies need for any DME. Uses home oxygen at 2L/NC, was told to increase to 3L with ambulation. Says he wears his oxygen as needed. More when the humidity is high. New smart vest to be ordered on discharge. Patient says PCP told him would be ordered today. Confirms 2000 ml fluid restriction. Denies fever, chills, nausea, vomiting. Still coughing, mostly non productive. Says he does produce small amounts of sputum at times. Recently had a bronchoscopy and is producing much less sputum since then. Hoping to get started using his new smart vest before he starts building up mucus in his lungs again. Denies shortness of breath, wheezing, chest pain. Says he is doing very well . Denies any needs. Education Provided by [facility] to Support Self-Management, Independent Living and ADLs: - new medications. - discharge instructions - s/s infection - call the office for questions, concerns, new, worsening or reoccurring s/s - call 911 for urgent issues such as chest pain, sudden dyspnea Verbalizes understanding of above. Communication with Home Health Agencies and Other Services Utilized/Needed by the Patient: NA [facility] 12-19-2023 Telephone encounter Note Tcm scheduled 12/28 [facility] 10-25-2023 History of Present illness Narrative Rashad Garcia Moise Date of visit: 10/25/2023 Date of : 1940 Age: 83 y.o. 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 ([facility]) Hyperlipidemia Gastric reflux Obstructive sleep apnea syndrome Pneumonia due to Pseudomonas ([facility]) Secondary hypothyroidism Spinal stenosis Arthritis Chronic lymphocytic leukemia of B-cell type not having achieved remission ([facility]) Bronchiectasis with acute exacerbation ([facility]) Acute hyponatremia Hypoxemia Laryngotracheobronchitis due to Haemophilus influenzae Reaction, drug, adverse Nasal polyp Allergies Allergen Reactions Apixaban Other reaction(s): Rash, itching Edoxaban Other reaction(s): Rash, itching Sulfa (Sulfonamide Antibiotics) Current Outpatient Medications Medication Sig Dispense Refill acetaminophen (TYLENOL) 500 mg tablet Take 1 tablet (500 mg total) by mouth every 6 (six) hours as needed for pain. atorvastatin (LIPITOR) 20 mg tablet TAKE 1 TABLET (20 MG TOTAL) BY MOUTH IN THE MORNING 90 tablet 1 cholecalciferol, vitamin D3, 2,000 units capsule Take 1 capsule (2,000 Units total) by mouth in the morning. famotidine (PEPCID) 40 mg tablet take 1 tablet by mouth every day 90 tablet 1 finasteride (PROSCAR) 5 mg tablet Take 1 tablet (5 mg total) by mouth in the morning for 360 days. 90 tablet 3 IMMUN GLOB G,IGG,/PRO/IGA 0-50 (HIZENTRA SUBQ) Inject under the skin every 7 days. levothyroxine (SYNTHROID, LEVOTHROID) 75 MCG tablet TAKE 1 TABLET BY MOUTH EVERY DAY 90 tablet 1 oxygen Inhale 2 L/min as needed. sodium chloride 3 % nebulizer solution umeclidinium-vilanteroL (ANORO ELLIPTA) 62.5-25 mcg/actuation blister with device Inhale 1 puff in the morning. 90 each 1 XARELTO 20 mg tablet tablet TAKE 1 TABLET (20 MG TOTAL) BY MOUTH IN THE MORNING 30 tablet 11 No current facility-administered medications for this visit. Chief Complaint Patient presents with Follow-up EST PT F/U 1 YR L/S RBP SCHED W/ PT HAS HAD LABS, EKG, [facility] AT [place] History of Present Illness I last saw this 83-year-old in 2012. He was last in the office August/[address] Elisabet Pepper He denies chest pain. He has chronic shortness of breath. 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 He is unaccompanied today CV TESTING HISTORY: ECHO: Echo complete W/O contrast Result Date: 05/26/2022 Left Ventricle: Systolic function is normal with an ejection fraction of 55-60%. Chamber size is small mild basal hypertrophy and no segmental wall motion abnormalities. Right ventricle normal size and systolic function Mitral regurgitation, mild Normal atria Normal diastolic function STRESS: No results found. HOLTER: No results found. CARDIAC CATH: No results found. CAROTID: No results found. CXR: No results found. Lipid Profile: Lab Results Component Value Date Cholesterol 98 (L) 05/24/2023 Cholesterol:HDL Ratio 2.2 05/24/2023 HDL 36 10/09/2014 HDL Cholesterol 45 05/24/2023 HDL interpretation 10/09/2014 RISK FAVORABLE AVERAGE INCREASED MEN >55 MG/DL 35-55 MG/DL < 35 MG/DL FEMALE >65 MG/DL 45-65 MG/DL < 45 MG/DL Triglycerides 63 05/24/2023 Triglycerides 95 10/09/2014 LDL 122 10/09/2014 LDL (calc) 40 05/24/2023 LDL interp 10/09/2014 RECOMMENDED: <130 MG/DL MODERATE RISK: 130-159 MG/DL HIGH RISK: >160 MG/DL Past Medical History: Diagnosis Date Arthritis Atrial fibrillation (CMS-HCC) BPH (benign prostatic hyperplasia) Cataract Cervical arthritis Chronic sinus infection Dyspnea Esophageal reflux Fatigue Heart murmur Skin cancer basal 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 (CMS-HCC) Vestibular dysfunction Past Surgical History: Procedure Laterality Date Afib ablation, typical aflutter ablation and POLINA - Rhythmia, CRYO, ICE N/A 10/17/2018 Performed by Delroy Horton MD at [facility] () CATARACT EXTRACTION, BILATERAL DISC REMOVAL SINUS SURGERY SKIN CANCER EXCISION x5 TURBINATE RESECTION Family History Problem Relation Age of Onset Cancer Mother Cancer Father Social History Socioeconomic History Marital status: Spouse name: Not on file Number of children: Not on file Years of education: Not on file Highest education level: Bachelor's degree (e.g., BA, AB, BS) Occupational History Not on file Tobacco Use Smoking status: Former Smokeless tobacco: Never Vaping Use Vaping status: Never Used Substance and Sexual Activity Alcohol use: Yes Alcohol/week: 2.0 standard drinks of alcohol Types: 2 Cans of beer per week Drug use: No Sexual activity: Defer Other Topics Concern Caffeine Use Yes Social History Narrative Not on file Social Determinants of Health Financial Resource Strain: Low Risk (03/17/2023) Overall Financial Resource Strain (CARDIA) Difficulty of Paying Living Expenses: Not hard at all Food Insecurity: No Food Insecurity (10/25/2023) Hunger Screening Food Insecurity - Worry: Never True Food Insecurity - Inability: Never True Transportation Needs: No Transportation Needs (03/17/2023) PRAPARE - Transportation Lack of Transportation (Medical): No Lack of Transportation (Non-Medical): No Physical Activity: Sufficiently Active (07/19/2023) Exercise Vital Sign Days of Exercise per Week: 7 days Minutes of Exercise per Session: 30 min Stress: No Stress Concern Present (03/17/2023) [place] of Occupational Health - Occupational Stress Questionnaire Feeling of Stress : Only a little Social Connections: Moderately Integrated (03/17/2023) Social Connection and Isolation Panel [NHANES] Frequency of Communication with Friends and Family: Twice a week Frequency of Social Gatherings with Friends and Family: Once a week Attends [employer] Services: Never Active Member of Clubs or Organizations: Yes Attends Club or Organization Meetings: More than 4 times per year Marital Status: Interpersonal Safety: Not At Risk (03/17/2023) Humiliation, Afraid, Rape, and Kick questionnaire Fear of Current or Ex-Partner: No Emotionally Abused: No Physically Abused: No Sexually Abused: No Housing Instability: Low Risk (03/17/2023) Housing Instability Housing Instability: No Review of Systems Review of Systems Constitutional: Negative. HENT: Positive for hearing loss and nosebleeds. Eyes: Negative. Cardiovascular: Negative. Vascular: Negative. Respiratory: Positive for cough. Endocrine: Negative. Hematologic/Lymphatic: Bruises/bleeds easily. Skin: Negative. Musculoskeletal: Negative. Gastrointestinal: Negative. Genitourinary: Negative. Neurological: Positive for light-headedness and loss of balance. Psychiatric/Behavioral: Negative. Allergic/Immunologic: Positive for environmental allergies. CARDIOVASCULAR: Please review HPI. Physical Examination General appearance: Alert, oriented and cooperative. In no acute distress. Chronically ill-appearing, pleasant. Oxygen per nasal cannula Skin: Warm and dry to touch. Head: Normocephalic, without obvious abnormality, atraumatic. Respiratory: Bilateral diffuse rhonchi Cardiovascular: RRR Musculoskeletal: No peripheral edema. VITAL SIGNS: BP (!) 80/42 (BP Site: Left Arm, BP Postition: Sitting) Pulse 66 Ht 177.8 cm (5' 10 ) Wt 66.2 kg (146 lb) BMI 20.95 kg/m No orders of the defined types were placed in this encounter. There are no discontinued medications. IMPRESSIONS/PLAN 1. Paroxysmal atrial fibrillation (CMS-HCC) 2. Mixed hyperlipidemia 1. Paroxysmal atrial fibrillation, symptomatic --status post cryo ablation 10/2018 -Xarelto 2. Bronchiectasis/COPD 3. History of chronic Pseudomonas infection with long-term tobramycin history 4. Chronic kidney disease stage 2 -creatinine 1.38 08/2023 5. Lipid studies 05/2023 6. Common variable immune deficiency 7. Chronic lymphocytic leukemia --per Dr. Ramona Interiano 08/2023, monitoring 8. SIADH treated with fluid restriction 9. Chronic mild hypotension likely due to hypovolemia --liberalized fluids per Dr. Ramona Interiano at 08/2023 visit --discussed the importance of caution with positional changes 10. Normal left ventricular systolic function with mild mitral regurgitation per echocardiogram 05/2022 TODAYS ORDERS No orders of the defined types were placed in this encounter. FOLLOW UP Return for 9-12 months. PCP: Blaise Marie Jr, DO Referring Physician: Blaise Marie DO [address] [place] [address] documented in this encounter [facility] 10-24-2023 Miscellaneous Notes Called patient to remind them to bring their most current copy of their medication list with them to their appt. Patient verbalizes understanding. documented in this encounter [facility] 10-24-2023 Telephone encounter Note Called patient to remind them to bring their most current copy of their medication list with them to their appt. Patient verbalizes understanding. [facility] 10-10-2023 Miscellaneous Notes ----- Message from Dr. Blaise Marie DO sent at 05/24/2023 5:02 PM EST ----- CV recheck Sent mychart msg Scheduled documented in this encounter [facility] 10-10-2023 Telephone encounter Note ----- Message from Dr. Blaise Marie DO sent at 05/24/2023 5:02 PM EST ----- CV recheck [facility] 10-10-2023 Telephone encounter Note Sent mychart msg [facility] 10-10-2023 Telephone encounter Note Scheduled [facility] 09-07-2023 History of Present illness Narrative IM PROGRESS NOTE Patient - Rashad Mcnair Age - 83 y.o. - 1940 ASSESSMENT & PLAN 1. Chronic obstructive pulmonary disease, unspecified COPD type (CMS-HCC) - GOLD Stage B - Stable from previous - Will get 6 min walk to qualify for portable O2 2. Bronchiectasis ([facility]) - Episodes requiring bronchoscopy are increasing - We discussed obtaining a percussion vest 3. Chronic lymphocytic leukemia of B-cell type not having achieved remission (CMS-HCC) - low grade - Monitoring at this time - CBC auto differential; Future 4. 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 Hypotension due to hypovolemia - May be related to fluid restrictions for SIADH - I encouraged at least 40 -50 oz of liquid daily Subjective COPD ASSESSMENT TEST Describe you symptoms of coughing: I cough most of the time (4) Describe your phlegm production: I have phlegm most of the time (4) Describe your chest tightness: My chest feels tight some of the time (3) Any breathlessness on stairs or hills: I am moderately breathless (3) Any limitations to daily activities: I occasionally have limited energy (2) Confidence leaving your home: I rarely have concerns (1) Any problems sleeping from breathing: I occasionally have problems sleeping (2) TOTAL CAT SCORE: 19 Exacerbations of lung disease: 0-1 exacerbations and no hospitalizations COPD Stage: CAT SCORE >= 10 and 0-1 Exacerbations/Hospitalizations GROUP B Any problems with taking or using inhalers or nebulizer? No, and actually using more frequently than in the past Any problems using oxygen? No. Is using nightly, but would like to get a portable concentrator A review of systems was negative except for the following: General: fatigue ENT: hearing change Respiratory: cough and shortness of breath Genito-Urinary: urinary frequency/urgency. Exam BP (!) 88/56 (BP Site: Left Arm, BP Postition: Sitting) Pulse 75 Temp 36.3 C (97.3 F) (Oral) Resp 18 Ht 177.8 cm (5' 10 ) Wt 67 kg (147 lb 12.8 oz) SpO2 93% BMI 21.21 kg/m Physical Exam Vitals reviewed. Exam conducted with a sugar coating hand present (). Constitutional: General: He is not in acute [...] Rfl: 1 finasteride (PROSCAR) 5 mg tablet, Take 1 tablet (5 mg total) by mouth in the morning for 360 days., Disp: 90 tablet, Rfl: 3 IMMUN GLOB G,IGG,/PRO/IGA 0-50 (HIZENTRA SUBQ), Inject under the skin every 7 days. , Disp: , Rfl: levothyroxine (SYNTHROID, LEVOTHROID) 75 MCG tablet, TAKE 1 TABLET BY MOUTH EVERY DAY, Disp: 90 tablet, Rfl: 1 oxygen, Inhale 2 L/min as needed., Disp: , Rfl: sodium chloride 3 % nebulizer solution, , Disp: , Rfl: umeclidinium-vilanteroL (ANORO ELLIPTA) 62.5-25 mcg/actuation blister with device, Inhale 1 puff in the morning., Disp: 90 each, Rfl: 1 XARELTO 20 mg tablet tablet, TAKE 1 TABLET (20 MG TOTAL) BY MOUTH IN THE MORNING, Disp: 30 tablet, Rfl: 11 Lab Results No visits with results within 1 Month(s) from this visit. Latest known visit with results is: Hospital Outpatient Visit on 06/09/2023 Component Date Value Ref Range Status IgG 06/09/2023 826 [id number] - 1,741 mg/dL Final Other Testing X-ray chest 2 views Result Date: 07/05/2023 CHEST 2 VIEWS HISTORY: Bronchiectasis COMPARISON: CT chest 04/27/2023 IMPRESSION: * Extensive bronchiectasis in each lung with associated bronchial wall thickening, right worse than left. * No pleural effusions or pneumothorax. Finalized by Rabia Dias MD on 07/05/2023 7:54 AM Blaise Marie DO., [facility] Physicians Office: [phone] documented in this encounter [facility] 08-24-2023 Miscellaneous Notes Please sign and route if you agree. Thank you TOM 08/17/22 ABN CMP 06/07/23 ABN CBC 05/24/23 Pt needs annual appt scheduled please, thank you. Letter sent. documented in this encounter [facility] 08-24-2023 Telephone encounter Note Please sign and route if you agree. Thank you TOM 08/17/22 ABN CMP 06/07/23 ABN CBC 05/24/23 Pt needs annual appt scheduled please, thank you. Letter sent. [facility] 08-09-2023 History of Present illness Narrative Images from the original note were not included. [address] [place] [address] [facility] [place] [id number] Patient: Rashad Mcnair Date of : 1940 Encounter Date: 08/09/2023 History of Present Illness: The patient is a 82 y.o. male, an established patient, and is here for followup. The patient has a longstanding history of lower urinary tract symptoms. He has been on finasteride since October 2010. He had been on tamsulosin as well but stopped due to hypotension. Has continued to void quite well using finasteride. No hematuria Summary of old records: Urinalysis today: No results for input(s): EXTPOCURCO , EXTPOCURCH , EXTPOCAPP , EXTPOCURBS , EXTPOCURBIL , EXTPOCUKET , EXTPOCUSPG , EXTPOCUHGB , EXTPOCUPRO , EXTPOCUURO , EXTPOCULEU , EXTPOCUNIT , EXTPOCUWBC , EXTPOCUBLD , EXTPOCURBC , EXTPOCUCRY , EXTPOCUBAC , EXTPOCUTREP , EXTPOCUPH in the last 72 hours. Last BUN and creatinine: Lab Results Component Value Date BUN 20 06/07/2023 Lab Results Component Value Date CREATININE 1.18 06/07/2023 Last PSA: Lab Results Component Value Date PSA 0.81 06/13/2018 PSA 0.54 06/07/2017 PSA 0.2 05/28/2015 Lab Results Component Value Date PROSTATICSP 0.48 05/24/2016 Additional Lab/Culture results: None Imaging Reviewed during this Office Visit: None (Results were independently reviewed by physician and radiology report verified) Past Medical, Family, and Social History Update: The following portions of the patient's history were reviewed and updated as appropriate: allergies, current medications, past family history, past medical history, past social history, past surgical history and problem list. 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 atorvastatin (LIPITOR) 20 mg tablet TAKE 1 TABLET (20 MG TOTAL) BY MOUTH IN THE MORNING 90 tablet 1 cholecalciferol, vitamin D3, 2,000 units capsule Take 1 capsule (2,000 Units total) by mouth in the morning. famotidine (PEPCID) 40 mg tablet TAKE 1 TABLET BY MOUTH EVERY DAY 90 tablet 1 finasteride (PROSCAR) 5 mg tablet Take 1 tablet (5 mg total) by mouth in the morning for 360 days. 90 tablet 3 IMMUN GLOB G,IGG,/PRO/IGA 0-50 (HIZENTRA SUBQ) Inject under the skin every 7 days. levothyroxine (SYNTHROID, LEVOTHROID) 75 MCG tablet TAKE 1 TABLET BY MOUTH EVERY DAY 90 tablet 1 oxygen Inhale 2 L/min as needed. rivaroxaban (XARELTO) 20 mg tablet tablet Take 1 tablet (20 mg total) by mouth in the morning. 90 tablet 3 sodium chloride 3 % nebulizer solution umeclidinium-vilanteroL (ANORO ELLIPTA) 62.5-25 mcg/actuation blister with device Inhale 1 puff in the morning. 90 each 1 No current facility-administered medications for this visit. (All medications reviewed and updated by provider since last office visit or hospitalization) Allergies: Apixaban, Edoxaban, and Sulfa (sulfonamide antibiotics) Tobacco History: Social History Tobacco Use Smoking Status Former Smokeless Tobacco Never (If patient a smoker, smoking cessation counseling offered) Social History: Social History Substance and Sexual Activity Alcohol Use Yes Alcohol/week: 2.0 standard drinks of alcohol Types: 2 Cans of beer per week Review of Systems: General: Negative for chills and fever. Cardiovascular: Negative for chest pain and shortness of breath. Gastrointestinal: Negative for constipation, diarrhea, nausea, and vomitting. Physical Exam: BP (!) 85/56 Pulse 87 Ht 177.8 cm (5' 10 ) Wt 66.7 kg (147 lb) BMI 21.09 kg/m Assessment and Plan: Frank was seen today for follow-up. Diagnoses and all orders for this visit: Benign non-nodular prostatic hyperplasia with lower urinary tract symptoms Problem List Genitourinary Benign non-nodular prostatic hyperplasia with lower urinary tract symptoms - Primary Overview Uroflow/PVR 10/19. finasteride added 10/19 tamsulosin stopped 2016 unsuccessfully and restarted Lower urinary tract symptoms stable using finasteride and tamsulosin. 08/15/18: Stopped tamsulosin (hypotension). 02/05/20: Doing well with auass of 6/qol 2. Plan to continue finasteride 02/10/21: Stable with auass 8/2. Continue finasteride 08/09/23 Lower urinary tract symptoms currently very well controlled using finasteride. He is going to be on the medication. He was going to request future refills with Dr. Marie and return to see me if he has any further progression of symptoms Follow-up: Shani Burt MD This note was created with the assistance of a speech recognition program. While intending to generate a timely document that accurately reflects the content of the visit, no guarantee can be provided that every grammatical or spelling mistake has been or will be identified or corrected. Thank you for your understanding. documented in this encounter [facility] 07-19-2023 History of Present illness Narrative Subjective SUBJECTIVE: Patient ID: Rashad Mcnair is a 82 y.o. male who presents for a Medicare Annual Wellness exam. HPI The following portions of the patient's history were reviewed and updated as appropriate: allergies, current medications, past family history, past medical history, past social history, past surgical history and problem list. AWV FLOWSHEET : Lifestyle Assessment Do you smoke or use smokeless tobacco?: No If you smoke or use smokeless tobacco, are you ready to quit?: NA Are you exposed to secondhand smoke?: No On average, how many drinks of alcohol do you consume in a week?: 1 or less Do you exercise for 30 or more minutes on average at least 3 days a week?: Always Do you have any tooth, denture, or oral problems?: No Do you snore or has anyone told you that you snore?: No Do you try to eat a balanced diet?: Yes Do you experience leakage of urine, also known as urinary incontinence?: Never Do you have difficulty performing any of these activities? (check all that apply): None Do you have difficulty performing any of these activities? (check all that apply): (!) Housekeeping Fall Risk Fall Risk Assessment Completed?: Yes Have you fallen in the past year?: No Are you worried about falling?: No Do you feel unsteady when standing or walking?: (!) Yes Risk Stratification: Moderate Risk Depression Screening Little interest or pleasure in doing things: Not at all Feeling down, depressed, or hopeless: Not at all Trouble falling or staying asleep, or sleeping too much: Not at all Feeling tired or having little energy: Not at all Poor appetite or overeating: Not at all Feeling bad about yourself - or that you are a failure or have let yourself or your family down: Not at all Trouble concentrating on things, such as reading the newspaper or watching television: Not at all Moving or speaking so slowly that other people could have noticed. Or the opposite - being so fidgety or restless that you have been moving around a lot more than usual: Not at all Thoughts that you would be better off , or of hurting yourself in some way: Not at all PEG Scale Safety Assessment Do you have throw rugs on the floor?: No Do you feel safe at your home?: Yes Do you feel unsteady when walking?: (!) Yes Are you having difficulty with driving?: No Do you have trouble seeing?: No What assistive device do you use? (check all that apply): None Hearing Assessment Do you strain or struggle to hear/understand conversations?: No Do you have trouble hearing the television or radio when others do not?: No Does your family ever voice concerns about your hearing?: No Do you wear hearing aid/s?: (!) Yes Personal Health During the past 4 weeks, how would you rate your overall health?: (!) Fair Do you understand how to take all of your medications?: Yes How confident are you that you can control and manage most of your health problems?: Very confident In the past 12 months, how many times have you been hospitalized?: (!) 2 or more End of Life Planning Do you have a living will?: Yes Do you have a durable power of ip attorney?: Yes Cognitive Screening Do you have trouble remembering or recalling facts or events?: (!) Yes Do family members or caregivers report that you have difficulty remembering things?: (!) Yes 6-ClT: Normal 0 REVIEW OF SYSTEMS: Review of Systems Objective PHYSICAL EXAMINATION: Vitals: 07/19/23 1304 BP: 98/58 Weight: 66.8 kg (147 lb 4.8 oz) Height: 177.8 cm (5' 10 ) Physical Exam Assessment/Plan ASSESSMENT/PLAN Frank was seen today for medicare annual wellness. Diagnoses and all orders for this visit: Encounter for subsequent annual wellness visit (AWV) in Medicare patient Return in about 1 year (around 07/18/2024). [facility] Evaluation + Plan note Associated Problem(s): CVID (common variable immunodeficiency) (CMS/HCC) His level is back up to his baseline. His last creatinine was within normal limits. Continue Hizentra 7 g weekly infusions. Obtain IgG level blood work before next appointment in October 2023. [facility] Work Phone: 06-19-2023 Miscellaneous Notes Associated Problem(s): CVID (common variable immunodeficiency) (CMS/HCC) His level is back up to his baseline. His last creatinine was within normal limits. Continue Hizentra 7 g weekly infusions. Obtain IgG level blood work before next appointment in October 2023. documented in this encounter [facility] Work Phone: 06-14-2023 History of Present illness Narrative Subjective Rashad Mcnair is a 82 y.o. male who presents [...] patient. Patient will be participating in a [employer] concert. Physical Exam Constitutional: Appearance: Normal appearance. [...] direction and in the presence of Sweetie Pop MD. All medical record entries made by the Scribe were at my direction and personally dictated by me. I have reviewed the chart and agree that the record accurately reflects my personal performance of the history, physical exam, discussion and plan. documented in this encounter [facility] Work Phone: 06-14-2023 Instructions Arabella Singh - 06/14/2023 12:15 PM EST Continue Hizentra 7 g weekly infusions. Obtain IgG level blood work before next appointment in October 2023. Continue 3% sodium chloride nebulizer as needed. Follow up Tuesday at [place], 10-25-2023 at 2:00 pm or sooner if symptoms worsen prior. documented in this encounter [facility] Work Phone: 05-24-2023 History of Present illness Narrative IM PROGRESS NOTE Patient - Rashad Mcnair Age - 82 y.o. - 1940 ASSESSMENT & PLAN 1. Chronic obstructive pulmonary disease, unspecified COPD type (CMS-HCC) -currently stable taking Breo once daily. However [...] predominant abnormalities of b-cell numbers and function (CMS-HCC) -receiving Hizentra routinely -overall stable. Keep follow-up with immunology 4. Chronic lymphocytic leukemia of B-cell type not having achieved remission (CMS-HCC) -early stage -no active treatment contemplated at this time. -keep follow-up with Oncology as previously scheduled. Repeat CBC 5. Bronchiectasis -chronic problem which is stable, but with exacerbations several times a year -keep regular follow-up with pulmonology regarding bronchoscopy 6. Paroxysmal atrial fibrillation (CMS-HCC) -rate is currently controlled -continue Xarelto 20 mg daily 7. Chronic renal impairment, stage 3a ([facility]) -renal protective strategies reviewed with the patient [...] urinary frequency/urgency Immunologic: Recently was seen by exhibition designer and Infectious Disease. They had no changes [...] Testing No results found. Blaise Marie DO., [facility] Physicians Office: [phone] documented in this encounter [facility] 04-29-2023 History of Present illness Narrative Infectious Diseases Clinic Follow-up: Reason for Visit: FOLLOW UP Telephone assessment History of Current Issue Patient was last evaluated 03/19/2022 but several calls and chart updates (05/18/22, 05/19/22 and 06/10/22) Patient has been following regularly with pulmonary medicine in [facility]. Patient currently using a flutter valve and [...] pneumococci. Patient and his report hospitalization at [facility] in March 2023. Patient cannot recall [...] when up and about. 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 Patient has had no fever, chills, [...] following more regularly with pulmonary medicine in [facility] (Dr. Jacobson) I have received regular notes [...] see if they would order that at [facility]. Alternatively I can print the requisition [...] If not I can send order to [facility] lab. I think it would be helpful [...] information but can call ID office at [phone] I spent 40 minutes in the professional and overall care of this patient. Rodriguez Quiroz MD documented in this encounter [facility] Work Phone: 04-05-2023 History of Present illness Narrative IM PROGRESS NOTE Patient - Rashad Mcnair Age - 82 [facility]. [facility] 1940 [id number] ASSESSMENT & PLAN 1. Acute exacerbation of bronchiectasis (CMS-HCC) -flare-up has resolved back to baseline since admission to hospital -may resume Breo once daily, nebulized saline, and oxygen use as much as possible -encourage patient to notify me CARMEN for any flare-ups. We may be able to blunt any exacerbations by prompt initiation of nebulized albuterol-ipratropium, prednisone burst, and ongoing use of oxygen 2. Chronic lymphocytic leukemia of B-cell type not having achieved remission (CMS-HCC) -mild and not a candidate for treatment at this point -continue to monitor 3. CVID -continue weekly immune globulin injections Subjective 82-year-old male presents for recheck after hospitalization for exacerbation of his bronchiectasis and COPD. Discharged from the hospital on March 20, 2023. He has been seen by his electric motor fitter since that visit. -initially was on nebulizer, steroids, and Augmentin for H influenza infection -was also qualified for portable oxygen -since discharge, he feels much better. He has been able to participate in family gatherings over the holidays, and is having much less sputum production, no more fevers. -he does get relief, and feels improved using the oxygen with portability. -he currently is not using the nebulizer except for saline, and is back to using Breo once daily. A review of systems was negative except for the following: General: fatigue ENT: hearing change and nasal congestion Respiratory: shortness of breath and sputum production, generally improved. Exam BP 110/52 (BP Site: Left Arm, BP Postition: Sitting) Pulse 73 Temp 36.5 C (97.7 F) (Temporal) Ht 180.3 cm (5' 11 ) Wt 66.4 kg (146 lb 6.4 oz) SpO2 95% BMI 20.42 kg/m Physical Exam Vitals reviewed. Exam conducted with a sugar coating hand present (). Constitutional: General: He is not in acute distress. Appearance: He is normal weight. He is not toxic-appearing. Comments: Chronically ill-appearing HENT: Head: Normocephalic. Right Ear: External ear normal. Left Ear: External ear normal. Ears: Comments: Decreased hearing bilaterally. Wearing hearing aids. Nose: No congestion or rhinorrhea. Mouth/Throat: Mouth: Mucous membranes are moist. Comments: Postnasal drainage noted posterior pharynx. Clear Eyes: General: No scleral icterus. Neck: Vascular: No carotid bruit. Comments: Range of motion: Decreased in all planes Cardiovascular: Rate and Rhythm: Normal rate. Rhythm [...] the morning.), Disp: 90 tablet, Rfl: 4 fluticasone furoate-vilanteroL (BREO ELLIPTA) 200-25 mcg/dose blister with device, Inhale 1 puff in the morning., Disp: 180 each, Rfl: 1 IMMUN GLOB G,IGG,/PRO/IGA 0-50 (HIZENTRA SUBQ), Inject under the skin every 7 days. , Disp: , Rfl: levothyroxine (SYNTHROID, LEVOTHROID) 75 MCG tablet, TAKE 1 TABLET BY MOUTH EVERY DAY, Disp: 90 tablet, Rfl: 1 rivaroxaban (XARELTO) 20 mg tablet tablet, Take 1 tablet (20 mg total) by mouth in the morning., Disp: 90 tablet, Rfl: 3 sodium chloride 0.9 % nebulizer solution, Inhale 3 mL by nebulization in the morning and 3 mL at noon and 3 mL in the evening and 3 mL before bedtime., Disp: 90 mL, Rfl: 12 sodium chloride 3 % nebulizer solution, , Disp: , Rfl: Lab Results Admission on 03/17/2023, Discharged on 03/20/2023 Component Date Value Ref Range Status Sodium 03/17/2023 122 (L) 134 - 146 mmol/L Final Potassium, Bld 03/17/2023 4.3 3.5 - 5.0 mmol/L Final Chloride 03/17/2023 93 (L) 98 - 109 mmol/L Final CO2 03/17/2023 23 22 - 32 mmol/L Final Anion gap 03/17/2023 6 5 - 15 mmol/L Final BUN 03/17/2023 29 (H) 5 - 27 mg/dL Final Creatinine 03/17/2023 1.30 (H) 0.70 - 1.20 mg/dL Final Glucose 03/17/2023 133 (H) 65 - 99 mg/dL Final Calcium 03/17/2023 8.4 (L) 8.5 - 10.5 mg/dL Final eGFR (CKD-EPI)non-race dependent 03/17/2023 54 (L) >59 ml/min/1.73sq.m Final Magnesium 03/17/2023 1.6 (L) 1.8 - 2.6 mg/dL Final Phosphorus 03/17/2023 2.8 2.4 - 4.9 mg/dL Final TSH 03/17/2023 1.04 0.49 - 4.67 uIU/mL Final T4, free 03/17/2023 1.69 (H) 0.61 - 1.60 ng/dL Final White Blood Cells 03/17/2023 45.3 (H) 4.0 - 11.0 X10E9/L Final RBC count 03/17/2023 3.89 (L) 4.10 - 5.70 X10E12/L Final Hemoglobin 03/17/2023 11.5 (L) 13.0 - 17.0 g/dL Final Hematocrit 03/17/2023 34.9 (L) 39 - 49 % Final MCV 03/17/2023 90 80 - 100 fL Final MCH 03/17/2023 29.6 27 - 34 pg Final MCHC 03/17/2023 33.0 32 - 36 g/dL Final RDW 03/17/2023 13.8 11.5 - 15.0 % Final Platelets 03/17/2023 283 150 - 450 X10E9/L Final MPV 03/17/2023 8.8 7 - 12 fL Final Gram Stain Result 03/17/2023 >25 WHITE BLOOD CELLS/LPF Final Gram Stain Result 03/17/2023 0 SQUAMOUS EPITHELIAL CELLS/LPF Final Gram Stain Result 03/17/2023 0 CILIATED EPITHELIAL CELLS/LPF Final Gram Stain Result 03/17/2023 MODERATE GRAM POSITIVE COCCI Final Gram Stain Result 03/17/2023 FEW GRAM NEGATIVE RODS Final Culture 03/17/2023 MANY HAEMOPHILUS INFLUENZAE BETA LACTAMASE POSITIVE Penicillin and Ampicillin are contraindicated. (A) Final Culture 03/17/2023 ALONG WITH MANY NORMAL ORAL BRYSON Final Culture 03/17/2023 REPORT UPDATED Final Sodium Urine Random 03/18/2023 18 mmol/L Final Osmolality, Ur 03/18/2023 443 300 - 1,300 mOsm/kg H2 Final Sodium 03/18/2023 126 (L) 134 - 146 mmol/L Final Potassium, Bld 03/18/2023 3.7 3.5 - 5.0 mmol/L Final Chloride 03/18/2023 92 (L) 98 - 109 mmol/L Final CO2 03/18/2023 23 22 - 32 mmol/L Final Anion gap 03/18/2023 11 5 - 15 mmol/L Final BUN 03/18/2023 33 (H) 5 - 27 mg/dL Final Creatinine 03/18/2023 1.49 (H) 0.70 - 1.20 mg/dL Final Glucose 03/18/2023 116 (H) 65 - 99 mg/dL Final Calcium 03/18/2023 8.4 (L) 8.5 - 10.5 mg/dL Final eGFR (CKD-EPI)non-race dependent 03/18/2023 46 (L) >59 ml/min/1.73sq.m Final Sodium 03/19/2023 133 (L) 134 - 146 mmol/L Final Potassium, Bld 03/19/2023 3.5 3.5 - 5.0 mmol/L Final Chloride 03/19/2023 97 (L) 98 - 109 mmol/L Final CO2 03/19/2023 23 22 - 32 mmol/L Final Anion gap 03/19/2023 13 5 - 15 mmol/L Final BUN 03/19/2023 32 (H) 5 - 27 mg/dL Final Creatinine 03/19/2023 1.24 (H) 0.70 - 1.20 mg/dL Final Glucose 03/19/2023 170 (H) 65 - 99 mg/dL Final Calcium 03/19/2023 8.5 8.5 - 10.5 mg/dL Final eGFR (CKD-EPI)non-race dependent 03/19/2023 57 (L) >59 ml/min/1.73sq.m Final White Blood Cells 03/19/2023 20.7 (H) 4.0 - 11.0 X10E9/L Final RBC count 03/19/2023 3.55 (L) 4.10 - 5.70 X10E12/L Final Hemoglobin 03/19/2023 10.6 (L) 13.0 - 17.0 g/dL Final Hematocrit 03/19/2023 31.5 (L) 39 - 49 % Final MCV 03/19/2023 89 80 - 100 fL Final MCH 03/19/2023 29.7 27 - 34 pg Final MCHC 03/19/2023 33.5 32 - 36 g/dL Final RDW 03/19/2023 13.8 11.5 - 15.0 % Final Platelets 03/19/2023 270 150 - 450 X10E9/L Final MPV 03/19/2023 8.9 7 - 12 fL Final Sodium 03/20/2023 130 (L) 134 - 146 mmol/L Final Potassium, Bld 03/20/2023 3.3 (L) 3.5 - 5.0 mmol/L Final Chloride 03/20/2023 105 98 - 109 mmol/L Final CO2 03/20/2023 23 22 - 32 mmol/L Final Anion gap 03/20/2023 2 (L) 5 - 15 mmol/L Final BUN 03/20/2023 36 (H) 5 - 27 mg/dL Final Creatinine 03/20/2023 1.09 0.70 - 1.20 mg/dL Final Glucose 03/20/2023 181 (H) 65 - 99 mg/dL Final Calcium 03/20/2023 7.8 (L) 8.5 - 10.5 mg/dL Final eGFR (CKD-EPI)non-race dependent 03/20/2023 67 >59 ml/min/1.73sq.m Final Other Testing No results found. Blaise Marie DO., [facility] Physicians Office: [phone] documented in this encounter [facility] 02-15-2023 Evaluation + Plan note Associated Problem(s): Pseudomonas aeruginosa colonization No growth in current culture from bronchoscopy. I would like him to continue to follow with Dr. Quiroz so he can stay in the loop of his case. That way if he develops another infection ID can give their opinion. [facility] Work Phone: 02-15-2023 Miscellaneous Notes Associated Problem(s): [...] a great sign. documented in this encounter [facility] Work Phone: 02-15-2023 Evaluation + Plan note Associated Problem(s): Bronchiectasis ([facility]) His case is incredibly complicated due to his bronchietasis. He recently underwent a bronchoscopy with clearing of the excessive secretions he develops in his airways. Currently no growth from bronchoscopy which is a great sign. He is treated by Dr. Jacobson. 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 Jay in the past caused decreased renal function [facility] Work Phone: 02-15-2023 Evaluation + Plan note [...] from bronchoscopy which is a great sign. [facility] Work Phone: 02-11-2023 History of Present illness Narrative Subjective Rashad Mcnair is a 82 y.o. male who presents for Immunodeficiency and Recurrent Pneumonia. Chief Complaint Patient presents with Immunodeficiency Recurrent Pneumonia Patient is at home accompanied by his . Patient returned to Dr. Jacobson, [employer] Checker, in Apr 2022 for breathing issues. He [...] 02/12/2024 Order Specific Question: Release result to tu.nr Answer: Immediate [1] Comprehensive metabolic panel Standing Status: Standing Number of Occurrences: 4 Standing Expiration Date: 08/11/2024 Order Specific Question: Release result to Propablet Answer: Immediate [1] Assessment/Plan CVID (common variable immunodeficiency) ([facility]/HCC) He will continue his infusions. He is [...] direction and in the presence of Sweetie Pop MD. All medical record entries made by the Scribe were at my direction and personally dictated by me. I have reviewed the chart and agree that the record accurately reflects my personal performance of the history, physical exam, discussion and plan. documented in this encounter [facility] Work Phone: 02-11-2023 Instructions Arabella Singh - 02/11/2023 10:30 AM EDT Continue Hizentra infusions. Obtain IgG level recheck every 3 months. I recommend followup with Dr. Quiroz, ID, and Dr. Jacobson, [employer]. documented in this encounter [facility] Work Phone: 02-02-2023 History of Present illness Narrative PATIENT NAME: Rashad Mcnair CLINIC NO.: [id number] ATTENDING PHYSICIAN: Tristin Campbell MD DATE OF SERVICE: February 02, [address] Blaise Marie, thank you for referring Mr Rashad Mcnair for an opinion regarding Possible CLL. CHIEF COMPLAINT: I have blood abnormalities HPI: Rashad Mcnair is a 82 year old year old [...] Preliminary PATH: IMAGING: ASSESSMENT AND PLAN: Rashad Mcnair is a 82 year old year old [...] allowing me to participate in Mr Rashad Mcnair care, if there are any questions or concerns please do not hesitate to contact me at the number below. Tristin Campbell M.D. Hematology/Medical Oncology [place] [phone] CC: Blaise Marie, documented in this encounter [facility] 08-06-2022 History of Present illness Narrative Patient [...] have followup scheduledHe continues Xarelto 20 per correspondence analyst but questions if this raises a bleeding [...] appointment scheduled with Dr. Quiroz, ID, yet. PA-Efbhomzlcm-Ipytbs [facility] Work Phone: 08-06-2022 History of Present illness [...] have followup scheduledHe continues Xarelto 20 per correspondence analyst but questions if this raises a bleeding [...] appointment scheduled with Dr. Quiroz, ID, yet. EU-Ziujizvtho-Qjcybuxp [employer] DO Work Phone: 05-07-2022 History of Present [...] should start fluticasone.He continues Hizentra infusions from [employer], which are going well with no SE. His states his dose was never increased in Apr 2022. EK-Gnyokpgxvk-Xjufmdxp 2100 DO Work Phone: 05-07-2022 History of [...] should start fluticasone.He continues Hizentra infusions from [employer], which are going well with no SE. His states his dose was never increased in Apr 2022. NI-Fwtuemkmlz-Rieojqie 2100 DO Work Phone: 10-25-2021 History of [...] yet.A had persistent Sx and saw a electric motor fitter at [facility], Dr. Rabia Jacobson, who performed bronchoscopy this [...] when he spoke to him last month. PF-Ufjpebiaex-Tkhbdhqx [employer] DO Work Phone: 10-25-2021 History of Present [...] yet.A had persistent Sx and saw a electric motor fitter at [facility], Dr. Rabia Jacobson, who performed bronchoscopy this [...] when he spoke to him last month. EQ-Jvuqpjgkdy-Hnbjuf Work Phone: 06-11-2021 History of Present illness [...] susceptible to levofloxacin but intermediate susceptibility to kcqpcdkbzu99/23/2020 Klebsiella pneumoniae susceptible to Cipro/levo, tobramycin and TMP-SMXTODAY 06/12/2021: -Infectious Disease-[facility] Bo Work Phone: 06-11-2021 History of Present illness Narrative Some data reviewed and entered into a note opened on 06/11/2021 in preparation for ID clinic on 06/12/2021ati last evaluated June followed for:1. Pseudomonas and Streptococcus pneumoniae airway [...] susceptible to levofloxacin but intermediate susceptibility to tlbeycjpnu20/23/2020 Klebsiella pneumoniae susceptible to Cipro/levo, tobramycin and [...] off 16 days. And refill pending. [facility]: 05-15-2021 History of Present illness [...] was told this was not a concern. Martha 2100 DO Work Phone: 11-09-2020 History of [...] more in the winter.His grandson is at [employer] He is studying medicine.Kidneys are stable. Martha [...] and more in the winter.Kidneys are stable. 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) CLL (chronic lymphocytic leukemia) (HCC) Chronic lymphoid leukemia, without mention of having achieved remission 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) Immunodeficiency with predominant T-cell defect, unspecified [facility] Bronchiectasis without complication (CMS/HCC)- Primary 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) documented in this encounter [facility] Work Phone: Evaluation note* Diagnosis Pneumonia due to Pseudomonas species, unspecified laterality, unspecified part of lung (CMS/HCC)- Primary Bronchiectasis without complication (CMS/HCC) documented in this encounter [facility] Work Phone: Evaluation note* Diagnosis CVID (common variable immunodeficiency) (CMS/HCC)- Primary Common variable immunodeficiency documented in this encounter [facility] Work Phone: Evaluation noteNo assessment information available [facility] Work Phone: Evaluation note* Diagnosis CLL (chronic lymphocytic leukemia) (HCC)- Primary Chronic lymphoid leukemia, without mention of having achieved remission Neutrophilic leukocytosis Other specified disease of white blood cells Chronic myeloproliferative disease (HCC) Neoplasm of uncertain behavior of other lymphatic and hematopoietic tissues Other specified diseases of blood and blood-forming organs [facility] Bronchiectasis without complication (Multi)- Primary 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 immunodeficiency)- Primary Common variable immunodeficiency Leukocytosis, unspecified type Chronic kidney disease, unspecified CKD stage 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 documented in this encounter [facility] Work Phone: Evaluation note* Diagnosis Gastro-esophageal reflux disease without esophagitis [facility] CLL (chronic lymphocytic leukemia) (HCC)- Primary Chronic lymphoid leukemia, without mention of having achieved remission Other specified diseases of blood and blood-forming organs [facility] Hypotension due to hypovolemia- Primary Chronic myeloproliferative disease (CMS-HCC) Pulmonary hypertension ([facility]-HCC) Other chronic pulmonary heart diseases 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 ([facility]-HCC) Chronic obstructive pulmonary disease, unspecified COPD type (CMS-HCC) Bronchiectasis (CMS-HCC) Paroxysmal atrial fibrillation ([facility]-HCC) Atrial fibrillation Chronic renal impairment, stage 3a (CMS-HCC) [facility] Bronchiectasis without complication (Multi)- Primary 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 immunodeficiency)- Primary Common variable immunodeficiency Leukocytosis, unspecified type Chronic kidney disease, unspecified CKD stage 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 Pneumonia due to Pseudomonas species, unspecified laterality, unspecified part of lung (Multi)- Primary Serratia marcescens infection Infection due to other gram-negative organisms in conditions classified elsewhere and of unspecified site Bronchiectasis without complication (Multi) documented in this encounter [facility] Work Phone: Evaluation note* Diagnosis Acute exacerbation of bronchiectasis (CMS-HCC)- Primary Chronic lymphocytic leukemia of B-cell type not having achieved remission ([facility]) [facility] Diagnosis Bronchiectasis ([facility]-HCC) [facility] Diagnosis Benign non-nodular prostatic hyperplasia with lower urinary tract symptoms- Primary [facility] Diagnosis Gastro-esophageal reflux disease without esophagitis [facility] Diagnosis Chronic obstructive pulmonary disease, unspecified COPD type (CMS-HCC)- Primary Bronchiectasis (CMS-HCC) Chronic lymphocytic leukemia of B-cell type not having achieved remission ([facility]-HCC) Hyponatremia Hyposmolality and/or hyponatremia Hypotension due to hypovolemia [facility] Diagnosis Chronic obstructive pulmonary disease, unspecified COPD type (CMS-HCC)- Primary Mixed hyperlipidemia 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) Chronic lymphocytic leukemia of B-cell type not having achieved remission ([facility]-HCC) Bronchiectasis (CMS-HCC) Paroxysmal atrial fibrillation ([facility]-HCC) Atrial fibrillation Chronic renal impairment, stage 3a (CMS-HCC) [facility] Diagnosis Gastro-esophageal reflux disease without esophagitis [facility] Diagnosis Other specified hypothyroidism [facility] Diagnosis Paroxysmal atrial fibrillation ([facility]-HCC)- Primary Atrial fibrillation Mixed hyperlipidemia [facility] Diagnosis Mixed hyperlipidemia [facility] Diagnosis Chronic obstructive pulmonary disease, unspecified COPD type (CMS-HCC) [facility] Diagnosis Encounter for subsequent annual wellness visit (AWV) in Medicare patient- Primary [facility] Diagnosis Mixed hyperlipidemia Other specified hypothyroidism [facility]* Diagnosis Orthostatic dizziness- Primary Pulmonary hypertension ([facility]-HCC) Other chronic pulmonary heart diseases Bronchiectasis ([facility]-HCC) Chronic obstructive pulmonary disease, unspecified COPD type (CMS-HCC) [facility] Diagnosis Hypotension due to hypovolemia- Primary Pulmonary hypertension (CMS-HCC) Other chronic pulmonary heart diseases Bronchiectasis ([facility]-HCC) Chronic obstructive pulmonary disease, unspecified COPD type ([facility]-HCC) [facility] Diagnosis Lower urinary tract symptoms (LUTS)- Primary [facility]* Diagnosis Urinary tract infection due to Enterococcus- Primary [facility] filedocumented in this encounter [facility] on filedocumented in this encounter [facility]Not on filedocumented in this encounter [facility]Not on filedocumented in this encounter [facility]* Attachments The following attachments cannot be sent through Care Everywhere. * Benign prostatic hyperplasia (enlarged prostate) ([place]) documented in [facility]ructionsNot on file documented in this encounterPro[facility] SystemInstructionsNot on file documented in this encounterPro[facility] SystemInstructionsNot on file documented in this encounterPro[facility] SystemInstructionsNot on file documented in this encounterProMedinh Health SystemInstructionsNot on file documented in this encounterProMedinh Health SystemInstructionsNot on file documented in this encounterProMed[facility] SystemInstructionsNot on file documented in this encounterProMedica Health SystemInstructionsNot on file documented in this encounterProA[facility] SystemInstructionsNot on file documented in this encounterProAden[facility] SystemReason for referral (narrative)* Consultation (Routine) - Authorized Specialty Diagnoses / Procedures Referred By Vineet miner Referred To Contact Infectious Diseases Diagnoses Bronchiectasis without complication (CMS/HCC) Procedures Follow Up In Infectious Disease Sweetie Pop MD [address] [facility], [place] [phone] Referral ID Status Reason Start Date Expiration Date V isits Requested Visits Authorized [id number] Authorized 02/11/2023 02/11/2024 1 1 [facility] Work Phone: Reason for visit Narrative* Consultation (Routine) - Authorized Specialty Diagnoses / Procedures Referred By Vineet miner Referred To Contact Infectious Diseases Diagnoses Bronchiectasis without complication (CMS/HCC) Procedures Follow Up In Infectious Disease Sweetie Pop MD [address] [facility], [place] [phone] Referral ID Status Reason Start Date Expiration Date V isits Requested Visits Authorized [id number] Authorized 02/11/2023 02/11/2024 1 1 [facility] Work Phone: Family History Grandmother Name Dates Details Family history of [...] consent was requested and obtained from RASHAD MCNAIR on this date, 01/16/2021 11:00 AM , for a telehealth visit. * Telephone visit due to patient's ongoing immunosuppression and COVID-19 pandemic * A telephone visit (audio only) between the patient (at the originating site) and the provider (at the distant site) was utilized to provide this telehealth service. * Verbal consent was requested and obtained from RASHAD MCNAIR on this date, 06/12/2021 09:40 AM , [...] care physician. Patient has not seen his software test manager recently. Last serum creatinine was 1.43 and stable Followup visit for CVIDFollow up* A telephone visit (audio only) between the patient (at the originating site) and the provider (at the distant site) was utilized to provide this telehealth service. * Verbal consent was requested and obtained from RASHAD MCNAIR on this date, 03/19/2022 11:00 AM , [...] consent was requested and obtained from RASHAD MCNAIR on this date, 08/06/2022 10:15 AM , for a telehealth visit. * Followup visit for CVID * A telephone visit (audio only) between the patient (at the originating site) and the provider (at the distant site) was utilized to provide this telehealth service. * Verbal consent was requested and obtained from RASHAD MCNAIR on this date, 08/06/2022 10:15 AM , for a telehealth visit. * Followup visit for CVID Followup visit for CVID and asthmaFollowup visit for CVID and asthma Summary Purpose Advance Directives Advance Directive Response Recorded Date/ Time Advance Directives No December 12:12pm Date Activated Date Inactivated Comments 12/15/2023 5:43 PM 12/17/2023 4:31 PM Date Activated Date Inactivated Comments 03/17/2023 4:34 PM 03/20/2023 4:36 PM Latest Code Status on File Code Status Date Activated Date Inactivated Comments Full Code 03/17/2023 4:34 PM 03/20/2023 4:36 PM Date Activated Date Inactivated Comments 03/17/2023 4:34 PM 03/20/2023 4:36 PM Date Activated Date Inactivated Comments 12/15/2023 5:43 PM 12/17/2023 4:31 PM Date Activated Date Inactivated Comments 03/17/2023 4:34 PM 03/20/2023 4:36 PM Chief Complaint and Reason for Visit Chief Complaint Cough, congestion, s hortness of breath Reason for Referral Specialty Diagnoses / Procedures Referred By Vineet t Referred To Contact CT IMAGING Diagnoses CLL (chronic lymphocytic leukemia) (HCC) Procedures CT CHEST W IVCON DIAGNOSTIC COMPUTED TOMOGRAPHY THORAX W/CONTRAST Danis Self MD [address] [place] [address] DR [place], [place] [address] [place] [address] Referral ID Status Reason Start Date Expiration Date Visits Requested Visits Authorized [id number] Authorized Auto-Generat ed Referral 06/30/2024 06/01/2025 1 1 Specialty Diagnoses / Procedures Referred By Vineet t Referred To Contact CT IMAGING Diagnoses CLL (chronic lymphocytic leukemia) (HCC) Procedures CT ABD/PEL W IVCON CT ABD & PELVIS W/CONTRAST Danis Self MD [address] [place] [address] [place] [address] [place] [address] Referral ID Status Reason Start Date Expiration Date Visits Requested Visits Authorized [id number] Authorized Auto-Generat ed Referral 06/30/2024 06/01/2025 1 1 Specialty Diagnoses / Procedures Referred By Vineet t Referred To Contact Diagnoses Orthostatic dizziness Pulmonary hypertension (CMS-HCC) Procedures Echo complete W/O contrast Blaise Marie, DO [address] [place] [address] [facility] [address] [place] [address] Phone: [phone] Referral ID Status Reason Start Date Expiration Date V isits Requested Visits Authorized [id number] Pending Review 12/29/2023 12/28/2024 1 1 Additional Source Comments (unrecognized sect ion and content) No Status Records FoundNo Status Records FoundNo Status Records FoundNo Status Records FoundNo Status Records FoundNo Status Records FoundNo Status Records FoundNo Status Records FoundNo Status Records Found INFORMATION SOURCE (unrecogn ized section and content) DATE CREATED AUTHOR 10/01/2021 [facility] DATE CREATED AUTHOR AUTHOR'S ORGANIZ ATION 06/21/2022 [facility] DATE CREATED AUTHOR AUTHOR'S ORGANIZ ATION 11/13/2022 [facility] DATE CREATED AUTHOR AUTHOR'S ORGANIZ ATION 11/17/2022 [facility] DATE CREATED AUTHOR AUTHOR'S ORGANIZ ATION 02/16/2024 [facility] DATE CREATED AUTHOR AUTHOR'S ORGANIZ ATION 04/29/2024 [facility] DATE CREATED AUTHOR AUTHOR'S ORGANIZ ATION 05/04/2024 [facility] DATE CREATED AUTHOR AUTHOR'S ORGANIZ ATION 05/05/2024 [facility] DATE CREATED AUTHOR AUTHOR'S ORGANIZ ATION 05/13/2024 [facility] Source Comments (unrecognize d section and content) In the event this informatio n is protected by the Federal Confidentiality of Alcohol and Drug Abuse Patient Records regulations: The Federal rules restrict any use of the information to criminally investigate or prosecute any alcohol or drug abuse patient.[facility] the event this information is protected by the Federal Confidentiality of Alcohol and Drug Abuse Patient Records regulations: The Federal rules restrict any use of the information to criminally investigate or prosecute any alcohol or drug abuse patient.[facility] the event this information is protected by the Federal Confidentiality of Alcohol and Drug Abuse Patient Records regulations: The Federal rules restrict any use of the information to criminally investigate or prosecute any alcohol or drug abuse patient.[facility] the event this information is protected by the Federal Confidentiality of Alcohol and Drug Abuse Patient Records regulations: The Federal rules restrict any use of the information to criminally investigate or prosecute any alcohol or drug abuse patient.[facility] Reason for Visit (unrecogniz ed section and content) Reason Comments Leukemia New patient consulta tion Reason Comments Immunodeficiency Recurrent Pneumonia Reason Comments Follow-up 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 Reason Comments Follow-up Reason Comments Hyperlipidemia Hypertension Reason Comments Hypertension Hyperlipidemia Reason Comments Follow-up EST PT F/U 1 YR L/S RBP SCHED W/ PT HAS HAD LABS, EKG, BRONCH AT [facility] Reason Comments medicare annual wellness Reason Onset Date Comments Transition Of Care 12/19/2023 Reason Comments Follow-up Reason Comments Blood Pressure Check Care Teams (unrecognized sec tion and content) Metal Roaster Relationship Specialty Start Date End Date Blaise Marie [address] [place] [address] PCP - General Internal Medicine 01/26/23 Metal Roaster Relationship Specialty Start Date End Date Blaise Marie DO [address] [place] [address] PCP - General 04/12/16 Metal Roaster Relationship Specialty Start Date End Date Blaise Marie DO [address] [place] [address] PCP - General 04/12/16 Metal Roaster Relationship Specialty Start Date End Date Blaise Marie DO [address] [place] [address] PCP - General 04/12/16 Team Status: Active Member Role Status Dates Blaise Marie DO Primary Care Provider Active Team Status: Inactive Member Role Status Dates Gabrielle Siegel APRN Attending Provider Active Start: December 15, 2023 End: December 15, 2023 Blaise Marie DO Primary Care Provider Active Sta rt: December 15, 2023 End: December 15, 2023 Metal Roaster Relationship Specialty Start Date End Date Blaise Marie [address] [place] [address] PCP - General Internal Medicine 01/26/23 Metal Roaster Relationship Specialty Start Date End Date Blaise Marie DO PCP - General 04/12/16 Sweetie Pop MD [address] [facility], [place] [address] Referring Physician Allergy and Immunology 03/05/24 Metal Roaster Relationship Specialty Start Date End Date Blaise Marie DO [address] [place] [address] PCP - General Internal Medicine 12/15/23 [facility]/19/24 Metal Roaster Relationship Specialty Start Date End Date Blaise Marie [address] [place] [address] PCP - General Internal Medicine 01/26/23 Metal Roaster Relationship Specialty Start Date End Date Blaise Marie [address] [place] [address] PCP - General Internal Medicine 01/26/23 Metal Roaster Relationship Specialty Start Date End Date Blaise Marie DO [address] [place] [address] PCP - General Internal Medicine 12/15/23 [facility] Nurse [facility] 01/19/24 Metal Roaster Relationship Specialty Start Date End Date Blaise Marie DO PCP - General 04/12/16 Sweetie Pop MD [address] [place] [address], [place] [address] Referring Physician Allergy and Immunology 03/05/24 Metal Roaster Relationship Specialty Start Date End Date Blaise Marie DO [address] [place] [address] PCP - General Internal Medicine 12/20/16 Metal Roaster Relationship Specialty Start Date End Date Blaise Marie DO [address] [place] [address] PCP - General Internal Medicine 12/20/16 Metal Roaster Relationship Specialty Start Date End Date Blaise Marie DO [address] [place] [address] PCP - General Internal Medicine 12/20/16 Metal Roaster Relationship Specialty Start Date End Date Blaise Marie DO [address] [place] [address] PCP - General Internal Medicine 12/20/16 Metal Roaster Relationship Specialty Start Date End Date Blaise Marie DO [address] [facility] [address] PCP - General Internal Medicine 12/20/16 Metal Roaster Relationship Specialty Start Date End Date Blaise Marie DO [address] [facility] [place] [address] PCP - General Internal Medicine 12/20/16 Whitney Schaefer [facility] Nurse - [employer] 09/15/23 Metal Roaster Relationship Specialty Start Date End Date Blaise Marie DO [address] [place] [address] PCP - General Internal Medicine 12/20/16 Whitney Schaefer [facility] Nurse - [employer] 09/15/23 Metal Roaster Relationship Specialty Start Date End Date Blaise Marie DO [address] [place] [address] PCP - General Internal Medicine 12/20/16 Whitney Schaefer [facility] Nurse - [employer] 09/15/23 Metal Roaster Relationship Specialty Start Date End Date Blaise Marie DO [address] [place] [address] PCP - General Internal Medicine 12/20/16 Whitney Schaefer [facility] Nurse - [employer] 09/15/23 Metal Roaster Relationship Specialty Start Date End Date Blaise Marie DO [address] [place] [address] PCP - General Internal Medicine 12/15/23 Lucía Glover [facility]CM Nurse - [employer] 11/22/23 Metal Roaster Relationship Specialty Start Date End Date Blaise Marie DO [address] [place] [address] PCP - General Internal Medicine 12/15/23 Lucía Glover [facility]CM Nurse - [employer] 11/22/23 Metal Roaster Relationship Specialty Start Date End Date Blaise Marie DO [address] [place] [address] PCP - General Internal Medicine 12/15/23 Lucía Glover [facility] Nurse - [employer] 11/22/23 Metal Roaster Relationship Specialty Start Date End Date Blaise Marie DO [address] [place] [address] PCP - General Internal Medicine 12/15/23 Lucía Glover [facility] Nurse - [employer] 11/22/23 Metal Roaster Relationship Specialty Start Date End Date Blaise Marie DO [address] [place] [address] PCP - General Internal Medicine 12/15/23 Lucía Glover [facility]CM Nurse - [employer] 11/22/23 Metal Roaster Relationship Specialty Start Date End Date Blaise Marie DO [address] [place] [address] PCP - General Internal Medicine 12/15/23 [facility] Nurse - [employer] 01/19/24 Metal Roaster Relationship Specialty Start Date End Date Blaise Marie DO [address] [place] [address] PCP - General Internal Medicine 12/15/23 [facility] Nurse - [employer] 01/19/24 Metal Roaster Relationship Specialty Start Date End Date Blaise Marie DO [address] [place] [address] PCP - General Internal Medicine 12/15/23 [facility] 01/19/24 Goals (unrecognized section and content) Goals may be documented in a n alternate sectionNot on filedocumented as of this encounterNot on filedocumented as of this encounterNot on filedocumented as of this encounterNot on filedocumented as of this encounterNot on filedocumented as of this encounterNot on filedocumented as of this encounterNot on filedocumented as of this encounterNot on filedocumented as of this encounterNot on filedocumented as of this encounterNot on filedocumented as of this encounterNot on filedocumented as of this encounterNot on filedocumented as of this encounterNot on filedocumented as of this encounterNot on filedocumented as of this encounterNot on filedocumented as of this encounter FOR RECORDS PERTAINING TO PATIENTS WHO ARE [...] BE BASED ON THE PRIMARY CLINICAL RECORDS. [facility]. provides no warranty or guarantee of the accuracy or completeness of information in this document.
[2024-06-11 12:13] LABS: Hematocrit 34.1 % (42.0-54.0); Hemoglobin 11.1 g/dL (14.0-18.0); Mean Corpuscular HGB Conc 32.6 g/dL (29.9-35.2); Mean Corpuscular Hemoglobin 29.4 pg (25.9-34.0); Mean Corpuscular Volume 90.2 fL (80.0-94.0); Mean Platelet Volume 10.7 fL (9.5-13.5); Platelet Count 250 10^3/uL (150-450); Red Blood Count 3.78 10^6/uL (4.70-6.10); Red Cell Distribution Width 14.6 % (11.0-15.0); White Blood Count 27.2 10^3/uL (4.0-11.0)
[2024-06-11 12:24] LABS: Anion Gap 8.1; BUN Creatinine Ratio 15.6; Calcium 9.2 mg/dL (8.5-10.1); Chloride 98 mmol/L (98-107); Estimated GFR (African America >60 (>=60 mL/min/1.73m^2); Estimated GFR (Non-African Ame 53 (>=60 mL/min/1.73m^2); Glucose 101 mg/dL (74-106); Potassium 4.1 mmol/L (3.5-5.1); Sodium 132 mmol/L (136-145)
[2024-06-11 13:25] LABS: INR 1.36
[2024-06-11 13:27] LABS: Partial Thromboplastin Time 52.9 sec (22.3-36.2)
[2024-06-11 13:38] LABS: Eosinophils Absolute Manual 0.54 10^3/uL (0.00-0.70); Lymphocytes Absolute Manual 4.89 10^3/uL (1.20-3.80); Monocytes Absolute Manual 1.08 10^3/uL (0.30-0.80); Ovalocytes 1+; Segmented Neut Absolute Manual 20.67 10^3/uL (1.4-6.5)
[2024-06-11 13:39] LABS: Anisocytosis 1+
--- NOTE | 2024-06-13 07:38 | ECG_ITS ---
[facility] Test Date: 2024-06-11 Pat Name: BABATUNDE MCNAIR Department: Room: - Gender: Male Wire Drawer: : 1940 Requested By: Chance Solares Order Number: [id number] Reading MD: EFREN DAVID M.D. Measurements Intervals [place] Rate: 70 P: -56 CT: 218 QRS: -9 QRSD: 93 T: -1 QT: 391 QTc: 424 Interpretive Statements SINUS RHYTHM WITH FIRST DEGREE AV BLOCK Nonspecific T wave changes Compared to ECG 07/08/2023 13:07:00 First degree AV block now present Electronically Signed On 06-14-2024 6:21:39 EST by EFREN DAVID M.D.
== END 2024-06-11 11:01 | disposition home or self-care (01) ==
PROVIDERS: PCP Internal Medicine; Visit Provider Internal Medicine
DX: Z01.810 Encounter for preprocedural cardiovascular examination (principal); Z01.812 Encounter for preprocedural laboratory examination; J47.9 Bronchiectasis, uncomplicated
CPT/HCPCS: 36415; 80048; 85007; 85027; 85610; 85730; 93005

== ENCOUNTER 2024-06-14 06:33 | Day surgery (SDC) | payer MEDICARE, OTHER, SELFPAY ==
[2024-06-11 11:35] VITALS: BP 98/55; PULSE 78; TEMP 36.3; O2SAT 89; BMI 19.9
[2024-06-14] VITALS (10 sets, daily range): BP systolic 88–112; BP diastolic 57–92; PULSE 78–98; TEMP 36.3–36.4; O2SAT 92–98; BMI 19.9
--- OUTSIDE RECORDS SUMMARY | 2024-06-14 06:36 | XMS_ITS | CCD ---
Author Organization [facility] Care Team Providers Care Certified Orthoptist Name Role Phone Rodriguez Quiroz Unavailable Unavailable [...] Unavailable Yuhas DOBlaise Primary Care Provider [phone] Sweetie Pop MD Unavailable Yuhas DO, Blaise L Primary Care Provider SWEETIE POP Referring Unavailable YUHAS, BLAISE L [...] (1 source) fish, unspecified Food Allergy [facility] [place] 2100 DO Work Phone: Penicillins (antibiotic) (1 source) Penicillins; Translations: [Penicillins] Drug Allergy -[facility] [place] 2100 DO Work Phone: rivaroxaban (1 source) rivaroxaban; Translations: [Xarelto TABS] Drug Allergy 6 [facility] [place] 2100 DO Work Phone: Sulfonamides (antibiotic) (1 source) Sulfonamides (Antibiotic); Translations: [Sulfa Drugs] Drug Allergy Rash [facility] [place] 2100 DO Work Phone: (20 sources) fish, unspecified allergy [facility]: (20 sources) Penicillins; Translations: [Penicillins] drug allergy 7 [facility] (20 sources) rivaroxaban; Translations: [Xarelto TABS] Drug Allergy 6 Unknown [facility] (20 sources) Sulfonamides (Antibiotic); Translations: [Sulfa Drugs] drug allergy [facility] [place] Work Phone: (6 sources) apixaban; Translations: [APIXABAN] Drug Allergy 6 [facility] Rep[facility] (6 sources) edoxaban; Translations: [EDOXABAN] Drug Allergy 6 [facility] (1 source) Fish derivative Drug allergy (disorder) [facility] (1 source) Penicillin Drug Allergy [facility] (1 source) Sulfonamides (Antibiotic) Drug allergy (disorder) [facility] (20 sources) apixaban Drug Allergy 6 Itching [facility] (20 sources) edoxaban Drug Allergy 6 Unknown [facility] (11 sources) Fish; Translations: [FISH CONTAINING PRODUCTS] Drug Allergy 3 Unknown [facility] (7 sources) levoFLOXacin; Translations: [LEVOFLOXACIN] Drug Allergy 3 Unknown [facility] (7 sources) Penicillins Drug Allergy 7 Unknown [facility] (20 sources) Sulfonamides (Antibiotic); Translations: [SULFA (SULFONAMIDE ANTIBIOTICS)] Drug Allergy 7 Itching, Rash [facility] (2 sources) rivaroxaban; Translations: [RIVAROXABAN] Drug Allergy 6 [facility] Medications Current Medications Medication Drug Class(es) [...] Chronic obstructive pulmonary disease, unspecified COPD type ([facility]) INHALE 1 PUFF IN THE MORNING 90 [...] day. 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; Translations: [MANAGER RENEWABLE ENERGY CURRNT USE 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] Onset: 3 Episodic Other aftercare (1 source) Other retirement (current) drug therapy; Translations: [OTH JAIL CURRENT DRUG THERAPY] Onset: 3 Episodic Other [...] (20 sources) Drug therapy finding; Translations: [Other retirement [...] Test Name Value Interpretation Reference Range [facility] C[facility] Telephone (Sales LayerASA) ----- RASHAD MCNAIR ([id number]) 1940 M Date Time Provider Department 05/03/24 [...] Status:Closed by ROS OBRIEN on 05/03/24 Normal [facility] CBC W Auto Differential pane l (Bld)on 05-02-2024 Basophils (Bld) [#/Vol] 0.00 10*3/uL Normal <0.11 [facility] Comment on above: Order Comment: Speci men Type: BLOOD SPECIMEN Ordering Facility: [facility] Address: [address] [place] [address] Performed By: #### 2 432-8, 2-0 #### [facility] CLIA [id number] [address] [place] [address] 37563 Basophils/100 WBC (Bld) 0.0 % Normal [facility] Comment on above: Order Comment: Speci men Type: BLOOD SPECIMEN Ordering Facility: [facility] Address: [address] [phone] Performed By: #### 2 4322-8, 2532-0 #### [facility] CLIA [id number] [address] [place] [address] 78137 Dacrocytes LM Ql (Bld) Few Normal [facility] Comment on above: Order Comment: Speci men Type: BLOOD SPECIMEN Ordering Facility: [facility] Address: [address] [place] [address] Performed By: #### 2 4322-11, 2531-0 #### [facility] CLIA [id number] [address] [place] [address] 40603 Differential cell count method Nom (Bld) Manual Normal [facility] Comment on above: Order Comment: Speci men Type: BLOOD SPECIMEN Ordering Facility: [facility] Address: [address] [place] [address] Performed By: #### 2 4322-11, 2-0 #### [facility] CLIA [id number] [address] [place] [address] 71328 Eosinophils (Bld) [#/Vol] 0.00 10*3/uL Normal <0.46 [facility] Comment on above: Order Comment: Speci men Type: BLOOD SPECIMEN Ordering Facility: [facility] Address: [facility] [phone] Performed By: #### 2 8, 2532-0 #### [facility] CLIA [id number] [address] [place] [address] 57053 Eosinophils/100 WBC (Bld) 0.0 % Normal [facility] Comment on above: Order Comment: Speci men Type: BLOOD SPECIMEN Ordering Facility: [facility] Address: [address] [place] [address] Performed By: #### 2 4323-8, 2-0 #### [facility] CLIA [id number] [address] [place] [address] 48306 Erythrocyte distribution width (RBC) [Ratio] 14.2 % Normal 11.5-15.0 [facility] Comment on above: Order Comment: Speci men Type: BLOOD SPECIMEN Ordering Facility: [facility] Address: [address] [place] [address] Performed By: #### 2 432-8, 2-0 #### [facility] CLIA [id number] [address] [place] [address] 69738 Hematocrit (Bld) [Volume fraction] 34.8 % Low 39.0-51.0 [facility] Comment on above: Order Comment: Speci men Type: BLOOD SPECIMEN Ordering Facility: [facility] Address: [address] [place] [address] Performed By: #### 2 432-8, 2-0 #### [facility] CLIA [id number] [address] [place] [address] 64716 Hemoglobin (Bld) [Mass/Vol] 11.2 g/dL Low 13.0-17.0 [facility] Comment on above: Order Comment: Speci men Type: BLOOD SPECIMEN Ordering Facility: [facility] Address: [address] [place] [address] Performed By: #### 2 432-8, 2532-0 #### [facility] CLIA [id number] [address] [place] [address] 46559 Lymphocytes (Bld) [#/Vol] 32.90 10*3/uL High 1.00-4.00 [facility] Comment on above: Order Comment: Speci men Type: BLOOD SPECIMEN Ordering Facility: [facility] Address: [address] [place] [address] Performed By: #### 2 4323-8, 2532-0 #### [facility] CLIA [id number] [address] [place] [address] 21667 Lymphocytes/100 WBC (Bld) 58.0 % Normal [facility] Comment on above: Order Comment: Speci men Type: BLOOD SPECIMEN Ordering Facility: [facility] Address: [address] [place] [address] Performed By: #### 2 4328, 2531-0 #### [facility] CLIA [id number] [address] [place] [address] 62144 MCH (RBC) [Entitic mass] 29.2 pg Normal 26.0-34.0 [facility] Comment on above: Order Comment: Speci men Type: BLOOD SPECIMEN Ordering Facility: [facility] Address: [address] [place] [address] Performed By: #### 2 4328, 2531-0 #### [facility] CLIA [id number] [address] [place] [address] 61038 MCHC (RBC) [Mass/Vol] 32.2 g/dL Normal 30.5-36.0 [facility] Comment on above: Order Comment: Speci men Type: BLOOD SPECIMEN Ordering Facility: [facility] Address: [address] [place] [address] Performed By: #### 2 4328, 2531-0 #### [facility] CLIA [id number] [address] [place] [address] 56826 MCV (RBC) [Entitic vol] 90.6 fL Normal 80.0-100.0 [facility] Comment on above: Order Comment: Speci men Type: BLOOD SPECIMEN Ordering Facility: [facility] Address: [address] [place] [address] Performed By: #### 2 4328, 2532-0 #### [facility] CLIA [id number] [address] [place] [address] 16894 Monocytes (Bld) [#/Vol] 0.00 10*3/uL Normal <0.87 [facility] Comment on above: Order Comment: Speci men Type: BLOOD SPECIMEN Ordering Facility: [facility] Address: [address] [place] [address] Performed By: #### 2 4323-8, 2531-0 #### [facility] CLIA [id number] [address] [place] [address] 40574 Monocytes/100 WBC (Bld) 0.0 % Normal [facility] Comment on above: Order Comment: Speci men Type: BLOOD SPECIMEN Ordering Facility: [facility] Address: [address] [place] [address] Performed By: #### 2 4328, 2531-0 #### [facility] CLIA [id number] [address] [place] [address] 97563 Neutrophils (Bld) [#/Vol] 23.82 10*3/uL High 1.45-7.50 [facility] Comment on above: Order Comment: Speci men Type: BLOOD SPECIMEN Ordering Facility: [facility] Address: [address] [place] [address] Performed By: #### 2 4328, 2531-0 #### [facility] CLIA [id number] [address] [place] [address] 12805 Neutrophils/100 WBC (Bld) 42.0 % Normal [facility] Comment on above: Order Comment: Speci men Type: BLOOD SPECIMEN Ordering Facility: [facility] Address: [address] [place] [address] 39692 Performed By: #### 2 4328, 2-0 #### [facility] CLIA [id number] [address] [place] [address] 85274 Nucleated RBC (Bld) [#/Vol] 10*3/uL Normal <0.01 [facility] Comment on above: Order Comment: Speci men Type: BLOOD SPECIMEN Ordering Facility: [facility] Address: [address] [place] [address] Performed By: #### 2 432-8, 2-0 #### [facility] CLIA [id number] [address] [place] [address] Nucleated RBC/100 WBC (Bld) [Ratio] 0.0 /100 WBC Normal [facility] Comment on above: Order Comment: Speci men Type: BLOOD SPECIMEN Ordering Facility: [facility] Address: [address] [place] [address] Performed By: #### 2 4328, 2531-0 #### [facility] CLIA [id number] [address] [place] [address] 57245 Ovalocytes LM Ql (Bld) Few Normal [facility] Comment on above: Order Comment: Speci men Type: BLOOD SPECIMEN Ordering Facility: [facility] Address: [address] [place] [address] Performed By: #### 2 4328, 2531-0 #### [facility] CLIA [id number] [address] [place] [address] 85388 Platelet mean volume (Bld) [Entitic vol] 10.3 fL Normal 9.0-12.7 [facility] Comment on above: Order Comment: Speci men Type: BLOOD SPECIMEN Ordering Facility: [facility] Address: [address] [place] [address] Performed By: #### 2 4328, 2531-0 #### [facility] CLIA [id number] [address] [place] [address] 04742 Platelets (Bld) [#/Vol] 350 10*3/uL Normal 150-400 [facility] Comment on above: Order Comment: Speci men Type: BLOOD SPECIMEN Ordering Facility: [facility] Address: [address] [place] [address] Result Comment: Resu lts checked and verified.No clot detected. Performed By: #### 2 4323-8, 2532-0 #### [facility] CLIA [id number] [address] [place] [address] 42867 Platelets Estimate (Bld) [#/Vol] Adequate Normal [facility] Comment on above: Order Comment: Speci men Type: BLOOD SPECIMEN Ordering Facility: [facility] Address: [address] [place] [address] Performed By: #### 2 4323-8, 2-0 #### [facility] CLIA [id number] [address] [place] [address] 47842 Polychromasia LM Ql (Bld) Slight Normal [facility] Comment on above: Order Comment: Speci men Type: BLOOD SPECIMEN Ordering Facility: [facility] Address: [address] [phone] Performed By: #### 2 432-8, 2-0 #### [facility] CLIA [id number] [address] [place] [address] 29304 RBC (Bld) [#/Vol] 3.84 10*6/uL Low 4.20-6.00 [facility] Comment on above: Order Comment: Speci men Type: BLOOD SPECIMEN Ordering Facility: [facility] Address: [address] [phone] Performed By: #### 2 4328, 2531-0 #### [facility] CLIA [id number] [address] [place] [address] 84970 RBC FRAGMENTS Few Abnormal None Seen [facility] Comment on above: Order Comment: Speci men Type: BLOOD SPECIMEN Ordering Facility: [facility] Address: [address] [place] [address] Performed By: #### 2 4328, 2532-0 #### [facility] CLIA [id number] [address] [place] [address] 55675 RED CELL MORPH Reviewed: see result s of individual morphologies Normal [facility] Comment on above: Order Comment: Speci men Type: BLOOD SPECIMEN Ordering Facility: [facility] Address: [address] [place] [address] Performed By: #### 2 4323-8, 2532-0 #### [facility] CLIA [id number] [address] [place] [address] WBC (Bld) [#/Vol] 56.72 10*3/uL High 3.70-11.00 [facility] Comment on above: Order Comment: Speci men Type: BLOOD SPECIMEN Ordering Facility: [facility] Address: [address] [place] [address] Result Comment: Resu lts checked and verified.No clot detected. Performed By: #### 2 4323-8, 2532-0 #### [facility] CLIA [id number] [address] [place] [address] CNOVSPon 05-02-2024 CNOVSP Visit (SP) Office ([place]) ----- RASHAD MCNAIR ([id number]) 1940 M Date Time Provider Department 05/02/24 1:30 PM DANIS SELF During your visit today, we recorded the following information about you: Temperature Pulse Respiration Blood pressure 97.5 degrees 85/minute 18/minute 121/69 Weight Height 65.5 kg 1.803 m Danis Self MD 05/03/2024 10:54 AM Addendum PATIENT NAME: Rashad Mcnair CLINIC NO.: [id number] ATTENDING PHYSICIAN: Danis Self MD DATE OF [...] every week at home. Being monitored by redye hand at . 05/02/24: - Doing well - [...] 02/02/2023 66 (more content not included)... Normal [facility] CHRISTIANA DIRECTon 05-02-2024 DAGT, POLYSPECIFIC AHG Negative Normal [facility] Comment on above: Order Comment: Kevin duvall Type: BLOOD SPECIMEN Ordering Facility: [facility] Address: [address] [place] [address] Performed By: #### 2 4323-8, 2532-0 #### [facility] CLIA [id number] [address] [place] [address] 18680 Comprehensive metabolic 2000 panelon 05-02-2024 Albumin [Mass/Vol] 3.9 g/dL Normal 3.9-4.9 [facility] Comment on above: Order Comment: Kevin duvall Type: BLOOD SPECIMEN Ordering Facility: [facility] Address: [address] [place] [address] Performed By: #### 2 4323-8, 2531-0 #### [facility] CLIA [id number] [address] [place] [address] ALP [Catalytic activity/Vol] 117 U/L High 38-113 [facility] Comment on above: Order Comment: Speci men Type: BLOOD SPECIMEN Ordering Facility: [facility] Address: [address] [phone] Performed By: #### 2 432-8, 2531-0 #### [facility] CLIA [id number] [address] [place] [address] ALT [Catalytic activity/Vol] 16 U/L Normal 10-54 [facility] Comment on above: Order Comment: Speci men Type: BLOOD SPECIMEN Ordering Facility: [facility] Address: [address] [place] [address] Performed By: #### 2 4328, 2531-0 #### [facility] CLIA [id number] [address] [place] [address] 77234 Anion gap [Moles/Vol] 10 mmol/L Normal 8-15 [facility] Comment on above: Order Comment: Speci men Type: BLOOD SPECIMEN Ordering Facility: [facility] Address: [address] [address] Performed By: #### 2 4328, 2531-0 #### [facility] CLIA [id number] [address] [place] [address] 45468 AST [Catalytic activity/Vol] 17 U/L Normal 14-40 [facility] Comment on above: Order Comment: Speci men Type: BLOOD SPECIMEN Ordering Facility: [facility] Address: [address] [phone] Performed By: #### 2 4323-8, 2531-0 #### [facility] CLIA [id number] [address] [place] [address] Bilirubin [Mass/Vol] 0.5 mg/dL Normal 0.2-1.3 [facility] Comment on above: Order Comment: Speci men Type: BLOOD SPECIMEN Ordering Facility: [facility] Address: [address] [place] [address] Performed By: #### 2 4323-8, 2531-0 #### [facility] CLIA [id number] [address] [place] [address] Calcium [Mass/Vol] 9.4 mg/dL Normal 8.5-10.2 [facility] Comment on above: Order Comment: Speci men Type: BLOOD SPECIMEN Ordering Facility: [facility] Address: [address] [place] [address] Performed By: #### 2 432-8, 2531-0 #### [facility] CLIA [id number] [address] [place] [address] 30769 Chloride [Moles/Vol] 92 mmol/L Low 98-107 [facility] Comment on above: Order Comment: Speci men Type: BLOOD SPECIMEN Ordering Facility: [facility] Address: [address] [place] [address] Performed By: #### 2 4328, 2531-0 #### [facility] CLIA [id number] [address] [place] [address] 44925 CO2 [Moles/Vol] 28 mmol/L Normal 22-30 [facility] Comment on above: Order Comment: Speci men Type: BLOOD SPECIMEN Ordering Facility: [facility] Address: [address] [place] [address] Performed By: #### 2 432-8, 2531-0 #### [facility] CLIA [id number] [address] [place] [address] 81326 Creatinine [Mass/Vol] 1.09 mg/dL Normal 0.73-1.22 [facility] Comment on above: Order Comment: Speci men Type: BLOOD SPECIMEN Ordering Facility: [facility] Address: [address] [place] [address] Performed By: #### 2 432-8, 2532-0 #### [facility] CLIA [id number] [address] [place] [address] 38992 Creatinine and Glomerular filtration rate.predicted panel (S/P/Bld) 67 mL/min/1.73m??? Normal >=60 [facility] Comment on above: Order Comment: Specmalik duvall Type: BLOOD SPECIMEN Ordering Facility: [facility] Address: [address] [place] [address] Result Comment: Doug mated Glomerular Filtration Rate [...] Performed By: #### 2 4323-8, 2531-0 #### [facility] CLIA [id number] [address] [place] [address] 24516 Glucose [Mass/Vol] 115 mg/dL High 74-99 [facility] Comment on above: Order Comment: Kevin duvall Type: BLOOD SPECIMEN Ordering Facility: [facility] Address: [address] [place] [address] Result Comment: The [employer] Diabetes Association (ADA) provides guidance for cutoff [...] Standards of Medical Care in Diabetes 2016, [employer] Diabetes Association. Diabetes Care. 2016.39(Suppl 1). Performed By: #### 2 4323-8, 2531-0 #### [facility] CLIA [id number] [address] [place] [address] 92039 Potassium [Moles/Vol] 3.8 mmol/L Normal 3.7-5.1 [facility] Comment on above: Order Comment: Speci men Type: BLOOD SPECIMEN Ordering Facility: [facility] Address: [address] [place], [place] [address] Performed By: #### 2 4323-8, 2-0 #### [facility] CLIA [id number] [address] [place] [address]2820 Protein [Mass/Vol] 6.3 g/dL Normal 6.3-8.0 [facility] Comment on above: Order Comment: Speci men Type: BLOOD SPECIMEN Ordering Facility: [facility] Address: [address] [place] [address] Performed By: #### 2 4323-8, 2-0 #### [facility] CLIA [id number] [address] [place] [address] 10969 Sodium [Moles/Vol] 130 mmol/L Low 136-144 [facility] Comment on above: Order Comment: Speci men Type: BLOOD SPECIMEN Ordering Facility: [facility] Address: [address] [place] [address] Performed By: #### 2 4323-8, 2531-0 #### [facility] CLIA [id number] [address] [place] [address] 93884 Urea nitrogen [Mass/Vol] 24 mg/dL Normal 9-24 [facility] Comment on above: Order Comment: Speci men Type: BLOOD SPECIMEN Ordering Facility: [facility] Address: [address] [place], [place] [address] Performed By: #### 2 4323-8, 2-0 #### [facility] CLIA [id number] [address] [place] [address] 29201 Ferritin SerPl-mCncon 2024 Ferritin [Mass/Vol] 55.6 ng/mL Normal 30.3-565.7 [facility] Comment on above: Order Comment: Speci men Type: BLOOD SPECIMEN Ordering Facility: [facility] Address: [address] [place] [address] Performed By: #### 2 4323-8, 2532-0 #### [facility] CLIA [id number] [address] [place] [address] 97223 Folate SerPl-mCncon 05-02-19 25 Folate [Mass/Vol] 8.8 ng/mL Normal >4.7 [facility] Comment on above: Order Comment: Speci men Type: BLOOD SPECIMEN Ordering Facility: [facility] Address: [address] [place] [address] Performed By: #### 2 284-8, 2132-9 #### [facility] CLIA [id number] [address] [place] [address] [place] Haptoglob SerPl-mCncon 05-02 Haptoglobin [Mass/Vol] 208 mg/dL Normal 31-238 [facility] Comment on above: Order Comment: Speci men Type: BLOOD SPECIMEN Ordering Facility: [facility] Address: [address] [place] [address] Performed By: #### 2 4323-8, 2531-0 #### [facility] CLIA [id number] [address] [place] [address] 89491 Iron and Iron binding capaci ty panelon 05-02-2024 Iron [Mass/Vol] 21 ug/dL Low 41-186 [facility] Comment on above: Order Comment: Speci men Type: BLOOD SPECIMEN Ordering Facility: [facility] Address: [address] [place], [place] [address] Performed By: #### 2 4323-8, 2532-0 #### [facility] CLIA [id number] [address] [place] [address] 52718 Iron binding capacity [Mass/Vol] 309 ug/dL Normal 232-386 [facility] Comment on above: Order Comment: Speci men Type: BLOOD SPECIMEN Ordering Facility: [facility] Address: [address] [place], [place] [address] Performed By: #### 2 4323-8, 2532-0 #### [facility] CLIA [id number] [address] [place] [address] Iron/TIBC [Molar ratio] 6.8 % Low 15.0-57.0 [facility] Comment on above: Order Comment: Kevin duvall Type: BLOOD SPECIMEN Ordering Facility: [facility] Address: [address] [place] [address] Performed By: #### 2 4323-8, 0 #### [facility] CLIA [id number] [address] [place] [address] 75916 LDH SerPl-cCncon 05-02-2024 LDH [Catalytic activity/Vol] 164 U/L Normal 135-225 [facility] Comment on above: Order Comment: Kevin duvall Type: BLOOD SPECIMEN Ordering Facility: [facility] Address: [address] [place] [address] Result Comment: Hemo lysis present. The origin [...] Performed By: #### 2 43238, 0 #### [facility] CLIA [id number] [address] [place] [address] 95271 Vit B12 SerPl-mCncon 025 Cobalamin (Vitamin B12) [Mass/Vol] 1259 pg/mL High 232-1245 [facility] Comment on above: Order Comment: Kevin [place] Type: BLOOD SPECIMEN Ordering Facility: [facility] Address: [address] [place] [address] Performed By: #### 2 284-8, 2132-9 #### [facility] CLIA [id number] [address] [place] [address] [address] [place] XR CHEST 2 VWSon 04-28-2024 XR CHEST 2 VWS XR CHEST 2 VWS Chest 2 views History: Acute bronchitis with bronchiectasis ([facility]) Comparison: 12/15/2023 Findings: Chest 2 views. Changes with interstitial thickening in the right greater than the left lung are stable. Atherosclerotic thoracic aorta. Stable cardiomediastinal silhouette. No new focal opacity, effusion or pneumothorax. Impression: Stable chronic and/or fibrotic changes without definitive new or acute process. Finalized by Jose Morrison MD on 04/28/2024 5:17 PM Normal [facility] LOWER RESPIRATORY CULTUREon 04-26-2024 Bacteria identified Respiratory culture Nom (Sput) GRAM STAIN >25 WHITE BLOOD CELLS/LPF 0 to 1 SQUAMOUS EPITHELIAL CELLS/LPF 0 CILIATED EPITHELIAL CELLS/LPF FEW GRAM POSITIVE COCCI RARE GRAM NEGATIVE RODS RARE GRAM POSITIVE RODS CULTURE RESULTS NORMAL ORAL BRYSON Normal [facility] Comment on above: Performed By: #### 6 24-7 ####[facility] ([id number])[address] [address] CREATININEon 02-28-2024 Creatinine [Mass/Vol] 1.11 mg/dL Normal 0.60-1.30 [facility] Comment on above: Result Comment: METH OD TRACEABLE TO IDMS STANDARD Performed By: #### C RT ####[facility] ([id number])[address] [address] GFR/1.73 sq M.predicted among non-blacks MDRD (S/P/Bld) [Vol rate/Area] 65 mL/min/{1.73_m2} Normal >59 [facility] Comment on above: Result Comment: Reported eGFR is based on the CKD-EPI 2020 equation that does not use a race coefficient. Performed By: #### C RT ####[facility] ([id number])[address] [address] COMPREHENSIVE METABOLIC PANE Frank 02-27-2024 Albumin [Mass/Vol] 3.7 g/dL Normal 3.2-5.3 [facility] Comment on above: Performed By: #### 2 465-3, CMP ####[facility] ([id number])[address], [address], [place] [address] ALP [Catalytic activity/Vol] 89 U/L Normal 39-130 [facility] Comment on above: Performed By: #### 2 465-3, CMP ####[facility] ([id number])[address], [address], [place] [address] ALT [Catalytic activity/Vol] 10 U/L Normal 0-40 [facility] Comment on above: Performed By: #### 2 465-3, CMP ####[facility] ([id number])[address], [address], [place] [address] Anion gap [Moles/Vol] 6 mmol/L Normal 5-15 [facility] Comment on above: Performed By: #### 2 465-3, CMP ####[facility] ([id number])[address], [address], [place] [address] AST [Catalytic activity/Vol] 18 U/L Normal 0-41 [facility] Comment on above: Performed By: #### 2 465-3, CMP ####[facility] ([id number])[address], [address], [place] [address] Bilirubin [Mass/Vol] 0.5 mg/dL Normal 0.3-1.2 [facility] Comment on above: Performed By: #### 2 465-3, CMP ####[facility] ([id number])[address], [address], [place] [address] Calcium [Mass/Vol] 8.9 mg/dL Normal 8.5-10.5 [facility] Comment on above: Performed By: #### 2 465-3, CMP ####[facility] ([id number])[address], [address], [place] [address] Chloride [Moles/Vol] 99 mmol/L Normal 98-109 [facility] Comment on above: Performed By: #### 2 465-3, CMP ####[facility] ([id number])[address], [address], [place] [address] CO2 [Moles/Vol] 29 mmol/L Normal 22-32 [facility] Comment on above: Performed By: #### 2 465-3, CMP ####[facility] ([id number])[address], [address], [place] [address] Creatinine [Mass/Vol] 1.12 mg/dL Normal 0.60-1.30 [facility] Comment on above: Result Comment: METH OD TRACEABLE TO IDMS STANDARD Performed By: #### 2 465-3, CMP ####[facility] ([id number])[address] [address], [place] [address] GFR/1.73 sq M.predicted among non-blacks MDRD (S/P/Bld) [Vol rate/Area] 64 mL/min/{1.73_m2} Normal >59 [facility] Comment on above: Result Comment: Reported eGFR is based on the CKD-EPI 2020 equation that does not use a race coefficient. Performed By: #### 2 465-3, CMP ####[facility] ([id number])[address] [address], [place] [address] Glucose [Mass/Vol] 106 mg/dL High 65-99 [facility] Comment on above: Performed By: #### 2 465-3, CMP ####[facility] ([id number])[address] [address], [place] [address] Potassium [Moles/Vol] 4.8 mmol/L Normal 3.5-5.0 [facility] Comment on above: Performed By: #### 2 465-3, CMP ####[facility] ([id number])[address] [address], [place] [address] Protein [Mass/Vol] 6.2 g/dL Normal 6.0-8.0 [facility] Comment on above: Performed By: #### 2 465-3, CMP ####[facility] ([id number])[address], [address] [place] [address] Sodium [Moles/Vol] 134 mmol/L Normal 134-146 [facility] Comment on above: Performed By: #### 2 465-3, CMP ####[facility] ([id number])[address], [address] [place] [address] Urea nitrogen [Mass/Vol] 22 mg/dL Normal 5-27 [facility] Comment on above: Performed By: #### 2 465-3, CMP ####[facility] ([id number])[address], [address] [place] [address] IGGon 02-27-2024 IgG [Mass/Vol] 775 mg/dL Normal 635-1741 [facility] Comment on above: Performed By: #### 2 465-3, CMP ####[facility] ([id number])[address] [address] POCT Urinalysis Auto, W/O Mi croscopyon 02-14-2024 Appearance (U) cloudy [facility] External Poct Urine Bilirubin Negative [facility] External Poct Urine Blood 1+ [facility] External Poct Urine Color yellow [facility] External Poct Urine Glucose Negative [facility] External Poct Urine Ketones Negative [facility] External Poct Urine Leukocyte Esterase Large [facility] External Poct Urine Nitrite Negative [facility] External Poct Urine Ph 7 [facility] External Poct Urine Protein 3+ [facility] External Poct Urine Specific [place] 1.015 [facility] External Poct Urine Urobilinogen 0.2 [facility] URINE CULTUREon 02-14-2024 Bacteria identified Cx Nom [...] <=16 F VANCOMYCIN S 1 F Susceptible [facility] Comment on above: Performed By: #### 6 30-4 #### [facility] ([id number]) [address] [place] [address], [address] [place] [address] BCR/ABL1 P190 QUANTITATIVE P CR BLOODon 02-01-2024 BCR/ABL1 P190 INTERPRETATION Normal [facility] Comment on above: Order Comment: Speci men Type: BLOOD SPECIMEN Ordering Facility: [facility] Address: [address] [place] [address] Result Comment: BCR/ ABL1 p190 Quantitative PCR Laboratory Accession Number: [id number] Result: UNDETECTED NCN: N/A Interpretation: p190 BCR/ABL1 [...] this sample, and cDNA prepared by reverse certified midwife. Real time PCR was performed using primers for e1a2 BCR/ABL1 fusion transcripts and ABL1 transcripts (qPCR BCR/ABL minor, [employer], [place], [place]). This test does not detect p210 (e13a2 or e14a2) or other rare BCR/ABL1 transcripts. This assay has a limit of quantification of 0.0036% (LR4.4) and limit of detection of 0.0025% (LR4.6). Disclaimer: This test was developed and its performance characteristics determined by [facility]'s Pathology and Laboratory Medicine Department. It has not been cleared or approved by the FDA. [facility] Pathology and Laboratory Medicine Department is regulated under CLIA as certified to perform high-complexity testing. This test is used for clinical purposes. It should not be regarded as investigational or for research. Testing and interpretation performed at [facility], [address] [place] [address]. CLIA Number: [id number] As reviewed by Cassidy Coburn, PhD, [facility], [facility] Performed By: #### P 190P, P210P #### [facility] CLIA [id number] [address] [place] [address] [place] #### 210ISBP, 190NCBP #### [facility] CLIA [id number] [address] [place] [address] [place] BCR/ABL1 [id number] BLOOD( AND BCR/ABL1:ABL1)on 02-01-2024 BCR/ABL1 P190 NCN(%BCR/ABL1:ABL1 ) N/A Normal [facility] Comment on above: Order Comment: Speci men Type: BLOOD SPECIMEN Ordering Facility: [facility] Address: [address] [place] [address] Performed By: #### P 190P, P210P #### [facility] CLIA [id number] [address] [place] [address] [place] #### 210ISBP, 190NCBP #### [facility] CLIA [id number] [address] [place] [address] [place] BCR/ABL1 P210 %IS PANELon BCR/ABL1 P210 %IS N/A Normal [facility] Comment on above: Order Comment: Speci men Type: BLOOD SPECIMEN Ordering Facility: [facility] Address: [address] [place] [address] Performed By: #### P 190P, P210P #### [facility] CLIA [id number] [address] [place] [address] [place] #### 210ISBP, 190NCBP #### [facility] CLIA [id number] [address] [place] [address] [place] BCR/ABL1 P210 MR N/A Normal [facility] Comment on above: Order Comment: Speci men Type: BLOOD SPECIMEN Ordering Facility: [facility] Address: [address] [place] [address] Performed By: #### P 190P, P210P #### [facility] CLIA [id number] [address] [place] [address] [place] #### 210ISBP, 190NCBP #### [facility] CLIA [id number] [address] [place] [address] [place] BCR/ABL1 P210 QUANTITATIVE P CR BLOODon 02-01-2024 BCR/ABL1 P210 INTERPRETATION Normal [facility] Comment on above: Order Comment: Speci men Type: BLOOD SPECIMEN Ordering Facility: [facility] Address: [address] [place] [address] Result Comment: BCR/ ABL1 p210 Quantitative PCR Laboratory Accession Number: [id number] Result: UNDETECTED MR: N/A %IS: N/A Interpretation: p210 BCR/ABL1 transcripts were not detected. This result does not exclude the possibility of very low level transcripts below the level of detection of this assay (>MR4.7), and a result of not detected does not exclude the possibility of other BCR/ABL1 transcripts not targeted by this assay. Methodology: The AsKu6 QuantideX BCR/ABL IS assay is an FDA-cleared [...] 2015;29:999-1003 As reviewed by Cassidy Coburn, PhD, [facility] Performed By: #### P 190P, P210P #### [facility] CLIA [id number] [address] [place] [address] [place] #### 210ISBP, 190NCBP #### [facility] CLIA [id number] [address] [place] [address] [place] CBC W Auto Differential pane l (Bld)on 02-01-2024 Basophils (Bld) [#/Vol] 0.00 10*3/uL Normal <0.11 [facility] Comment on above: Order Comment: Speci men Type: BLOOD SPECIMEN Ordering Facility: [facility] Address: [address] [place] [address] Performed By: #### 2 284-8, 2131-12 #### [facility] CLIA [id number] [address] [place] [address] [place] Basophils/100 WBC (Bld) 0.0 % Normal [facility] Comment on above: Order Comment: Speci men Type: BLOOD SPECIMEN Ordering Facility: [facility] Address: [address] [place] [address] Performed By: #### 2 284-8, 2131-12 #### [facility] CLIA [id number] [address] [place] [address] [place] Dacrocytes LM Ql (Bld) Few Normal [facility] Comment on above: Order Comment: Speci men Type: BLOOD SPECIMEN Ordering Facility: [facility] Address: [address] [place] [address] Performed By: #### 2 284-8, 2131-12 #### [facility] CLIA [id number] [address] [place] [address] [place] Differential cell count method Nom (Bld) Manual Normal [facility] Comment on above: Order Comment: Speci men Type: BLOOD SPECIMEN Ordering Facility: [facility] Address: [address] [place] [address] Performed By: #### 2 284-8, 2131-12 #### [facility] CLIA [id number] [address] [place] [address] [place] Eosinophils (Bld) [#/Vol] 0.52 10*3/uL High <0.46 [facility] Comment on above: Order Comment: Speci men Type: BLOOD SPECIMEN Ordering Facility: [facility] Address: [address] [place] [address] Performed By: #### 2 284-8, 2131-12 #### [facility] CLIA [id number] [address] [place] [address] [place] Eosinophils/100 WBC (Bld) 1.7 % Normal [facility] Comment on above: Order Comment: Speci men Type: BLOOD SPECIMEN Ordering Facility: [facility] Address: [address] [place] [address] Performed By: #### 2 284-8, 2131-12 #### [facility] CLIA [id number] [address] [place] [address] [place] Erythrocyte distribution width (RBC) [Ratio] 14.3 % Normal 11.5-15.0 [facility] Comment on above: Order Comment: Speci men Type: BLOOD SPECIMEN Ordering Facility: [facility] Address: [address] [place] [address] Performed By: #### 2 284-8, 2131-12 #### [facility] CLIA [id number] [address] [place] [address] [place] Hematocrit (Bld) [Volume fraction] 32.9 % Low 39.0-51.0 [facility] Comment on above: Order Comment: Speci men Type: BLOOD SPECIMEN Ordering Facility: [facility] Address: [address] [place] [address] Performed By: #### 2 284-8, 2131-12 #### [facility] CLIA [id number] [address] [place] [address] [place] Hemoglobin (Bld) [Mass/Vol] 10.9 g/dL Low 13.0-17.0 [facility] Comment on above: Order Comment: Speci men Type: BLOOD SPECIMEN Ordering Facility: [facility] Address: [address] [place] [address] Performed By: #### 2 284-8, 2131-12 #### [facility] CLIA [id number] [address] [place] [address] [place] Lymphocytes (Bld) [#/Vol] 3.71 10*3/uL Normal 1.00-4.00 [facility] Comment on above: Order Comment: Speci men Type: BLOOD SPECIMEN Ordering Facility: [facility] Address: [address] [place] [address] Performed By: #### 2 284-8, 2131-12 #### [facility] CLIA [id number] [address] [place] [address] [place] Lymphocytes/100 WBC (Bld) 12.2 % Normal [facility] Comment on above: Order Comment: Speci men Type: BLOOD SPECIMEN Ordering Facility: [facility] Address: [address] [place] [address] Performed By: #### 2 284-8, 2131-12 #### [facility] CLIA [id number] [address] [place] [address] [place] MCH (RBC) [Entitic mass] 30.1 pg Normal 26.0-34.0 [facility] Comment on above: Order Comment: Speci men Type: BLOOD SPECIMEN Ordering Facility: [facility] Address: [address] [place] [address] Performed By: #### 2 284-8, 2131-12 #### [facility] CLIA [id number] [address] [place] [address] [place] MCHC (RBC) [Mass/Vol] 33.1 g/dL Normal 30.5-36.0 [facility] Comment on above: Order Comment: Speci men Type: BLOOD SPECIMEN Ordering Facility: [facility] Address: [address] [place] [address] Performed By: #### 2 284-8, 2131-12 #### [facility] CLIA [id number] [address] [place] [address] [place] MCV (RBC) [Entitic vol] 90.9 fL Normal 80.0-100.0 [facility] Comment on above: Order Comment: Speci men Type: BLOOD SPECIMEN Ordering Facility: [facility] Address: [address] [place] [address] Performed By: #### 2 284-8, 2131-12 #### [facility] CLIA [id number] [address] [place] [address] [place] Monocytes (Bld) [#/Vol] 2.13 10*3/uL High <0.87 [facility] Comment on above: Order Comment: Speci men Type: BLOOD SPECIMEN Ordering Facility: [facility] Address: [address] [place] [address] Performed By: #### 2 2848, 2131-12 #### [facility] CLIA [id number] [address] [place] [address] [place] Monocytes/100 WBC (Bld) 7.0 % Normal [facility] Comment on above: Order Comment: Speci men Type: BLOOD SPECIMEN Ordering Facility: [facility] Address: [address] [place] [address] Performed By: #### 2 284-8, 2131-12 #### [facility] CLIA [id number] [address] [place] [address] [place] Neutrophils (Bld) [#/Vol] 24.09 10*3/uL High 1.45-7.50 [facility] Comment on above: Order Comment: Speci men Type: BLOOD SPECIMEN Ordering Facility: [facility] Address: [address] [place] [address] Performed By: #### 2 284-8, 2131-12 #### [facility] CLIA [id number] [address] [place] [address] [place] Neutrophils/100 WBC (Bld) 79.1 % Normal [facility] Comment on above: Order Comment: Speci men Type: BLOOD SPECIMEN Ordering Facility: [facility] Address: [address] [place] [address] Performed By: #### 2 284-8, 2131-12 #### [facility] CLIA [id number] [address] [place] [address] [place] Nucleated RBC (Bld) [#/Vol] 10*3/uL Normal <0.01 [facility] Comment on above: Order Comment: Speci men Type: BLOOD SPECIMEN Ordering Facility: [facility] Address: [address] [place] [address] Performed By: #### 2 284-8, 2131-12 #### [facility] CLIA [id number] [address] [place] [address] [place] Nucleated RBC/100 WBC (Bld) [Ratio] 0.0 /100 WBC Normal [facility] Comment on above: Order Comment: Speci men Type: BLOOD SPECIMEN Ordering Facility: [facility] Address: [address] [place] [address] Performed By: #### 2 284-8, 2131-12 #### [facility] CLIA [id number] [address] [place] [address] [place] Ovalocytes LM Ql (Bld) Few Normal [facility] Comment on above: Order Comment: Speci men Type: BLOOD SPECIMEN Ordering Facility: [facility] Address: [address] [place] [address] Performed By: #### 2 284-8, 2131-12 #### [facility] CLIA [id number] [address] [place] [address] [place] Platelet mean volume (Bld) [Entitic vol] 10.8 fL Normal 9.0-12.7 [facility] Comment on above: Order Comment: Speci men Type: BLOOD SPECIMEN Ordering Facility: [facility] Address: [address] [place] [address] Performed By: #### 2 284-8, 2131-12 #### [facility] CLIA [id number] [address] [place] [address] [place] Platelets (Bld) [#/Vol] 264 10*3/uL Normal 150-400 [facility] Comment on above: Order Comment: Speci men Type: BLOOD SPECIMEN Ordering Facility: [facility] Address: [address] [place] [address] Performed By: #### 2 284-8, 2131-12 #### [facility] CLIA [id number] [address] [place] [address] [place] Platelets Estimate (Bld) [#/Vol] Adequate Normal [facility] Comment on above: Order Comment: Speci men Type: BLOOD SPECIMEN Ordering Facility: [facility] Address: [address] [place] [address] Performed By: #### 2 284-8, 2131-12 #### [facility] CLIA [id number] [address] [place] [address] [place] Polychromasia LM Ql (Bld) Slight Normal [facility] Comment on above: Order Comment: Speci men Type: BLOOD SPECIMEN Ordering Facility: [facility] Address: [address] [place], [place] [address] Performed By: #### 2 284-8, 2131-12 #### [facility] CLIA [id number] [address] [place] [address] [place] RBC (Bld) [#/Vol] 3.62 10*6/uL Low 4.20-6.00 [facility] Comment on above: Order Comment: Speci men Type: BLOOD SPECIMEN Ordering Facility[facility] Address: [address] [place] [address] Performed By: #### 2 284-8, 2131-12 #### [facility] CLIA [id number] [address] [place] [address] [place] RBC FRAGMENTS Few Abnormal None Seen [facility] Comment on above: Order Comment: Speci men Type: BLOOD SPECIMEN Ordering Facility[facility] Address: [address] [place] [address] Performed By: #### 2 284-8, 2131-12 #### [facility] CLIA [id number] [address] [place] [address] [place] RED CELL MORPH Reviewed: see result s of individual morphologies Normal [facility] Comment on above: Order Comment: Speci men Type: BLOOD SPECIMEN Ordering Facility[facility] Address: [address] [place] [address] Performed By: #### 2 284-8, 2131-12 #### [facility] CLIA [id number] [address] [place] [address] [place] WBC (Bld) [#/Vol] 30.45 10*3/uL High 3.70-11.00 [facility] Comment on above: Order Comment: Speci men Type: BLOOD SPECIMEN Ordering Facility[facility] Address: [address] [place] [address] Performed By: #### 2 284-8, 2131-12 #### [facility] CLIA [id number] [address] [place] [address] [place] CNOVSPon 02-01-2024 CNOVSP Visit (SP) Office ([facility]) ----- RASHAD MCNAIR ([id number]) 1940 M Date Time Provider Department 10/23/24 [...] Signed PATIENT NAME: Rashad Mcnair CLINIC NO.: [id number] ATTENDING PHYSICIAN: Danis Self MD DATE OF [...] every week at home. Being monitored by [facility] hand at . Current Outpatient Medications Medication Sig [...] No weakne (more content not included)... Normal [facility] metabolic 2000 panelOrdered By: Jes Weiss on 02-01-2024 Albumin [Mass/Vol] 3.8 g/dL Low 3.9 - 4.9 g/dL [facility] ALP [Catalytic activity/Vol] 106 U/L 38 - 113 U/L [facility] ALT [Catalytic activity/Vol] 8 U/L Low 10 - 54 U/L [facility] Anion gap [Moles/Vol] 9 mmol/L 8 - 15 mmol/L [facility] [facility] AST [Catalytic activity/Vol] 14 U/L 14 - 40 U/L [facility] Bilirubin [Mass/Vol] 0.5 mg/dL 0.2 - 1.3 mg/dL [facility] Calcium [Mass/Vol] 9.1 mg/dL 8.5 - 10. 2 mg/dL [facility] Chloride [Moles/Vol] 98 mmol/L 98 - 107 mmol/L [facility] CO2 [Moles/Vol] 27 mmol/L 22 - 30 mmol/L [facility] Creatinine [Mass/Vol] 1.29 mg/dL High 0.73 - 1.22 mg/dL [facility] GFR/1.73 sq M.predicted among non-blacks MDRD (S/P/Bld) [Vol rate/Area] 54 mL/min/{1.73_m2} Low - PINF [facility] Comment on above: Estimated Glomerular [...] 117 mg/dL High 74 - 99 mg/dL [facility] Comment on above: The [place] Diab[employer] s Association (ADA) provides guidance for [...] Standards of Medical Care in Diabetes 2016, [employer]. Diabetes Care. 2016.39(Suppl 1). Interpretation and review of laboratory results Abnormal [facility] Potassium [Moles/Vol] 3.9 mmol/L 3.7 - 5.1 mmol/L [facility] Protein [Mass/Vol] 6.2 g/dL Low 6.3 - 8.0 g/dL [facility] Sodium [Moles/Vol] 134 mmol/L Low 136 - 144 mmol/L [facility] Urea nitrogen [Mass/Vol] 23 mg/dL 9 - 24 mg/dL [facility] Comprehensive metabolic 2000 panelon 02-01-2024 Albumin [Mass/Vol] 3.8 g/dL Low 3.9-4.9 [facility] Comment on above: Order Comment: Speci men Type: BLOOD SPECIMEN Ordering Facility: [facility] Address: [address] [place] [address] Performed By: #### 2 4323-8, 0 #### [facility] CLIA [id number] [address] [place] [address] ALP [Catalytic activity/Vol] 106 U/L Normal 38-113 [facility] Comment on above: Order Comment: Speci men Type: BLOOD SPECIMEN Ordering Facility: [facility] Address: [address] [place] [address] Performed By: #### 2 4323-8, 0 #### [facility] CLIA [id number] [address] [place] [address] ALT [Catalytic activity/Vol] 8 U/L Low 10-54 [facility] Comment on above: Order Comment: Speci men Type: BLOOD SPECIMEN Ordering Facility: [facility] Address: [address] [place] [address] Performed By: #### 2 432-8, 2531-0 #### [facility] CLIA [id number] [address] [place] [address] Anion gap [Moles/Vol] 9 mmol/L Normal 8-15 [facility] Comment on above: Order Comment: Speci men Type: BLOOD SPECIMEN Ordering Facility: [facility] Address: [address] [place] [address] Performed By: #### 2 4328, 2-0 #### [facility] CLIA [id number] [address] [place] [address] AST [Catalytic activity/Vol] 14 U/L Normal 14-40 [facility] Comment on above: Order Comment: Speci men Type: BLOOD SPECIMEN Ordering Facility: [facility] Address: [address] [place] [address] Performed By: #### 2 4328, 2531-0 #### [facility] CLIA [id number] [address] [place] [address] Bilirubin [Mass/Vol] 0.5 mg/dL Normal 0.2-1.3 [facility] Comment on above: Order Comment: Speci men Type: BLOOD SPECIMEN Ordering Facility: [facility] Address: [address] [place] [address] Performed By: #### 2 4328, 2531-0 #### [facility] CLIA [id number] [address] [place] [address] Calcium [Mass/Vol] 9.1 mg/dL Normal 8.5-10.2 [facility] Comment on above: Order Comment: Speci men Type: BLOOD SPECIMEN Ordering Facility: [facility] Address: [address] [place] [address] Performed By: #### 2 4323-8, 2-0 #### [facility] CLIA [id number] [address] [place] [address] Chloride [Moles/Vol] 98 mmol/L Normal 98-107 [facility] Comment on above: Order Comment: Speci men Type: BLOOD SPECIMEN Ordering Facility: [facility] Address: [address] [place] [address] Performed By: #### 2 4323-8, 0 #### [facility] CLIA [id number] [address] [place] [address] CO2 [Moles/Vol] 27 mmol/L Normal 22-30 [facility] Comment on above: Order Comment: Speci men Type: BLOOD SPECIMEN Ordering Facility: [facility] Address: [address] [place] [address] Performed By: #### 2 4323-8, 0 #### [facility] CLIA [id number] [address] [place] [address] Creatinine [Mass/Vol] 1.29 mg/dL High 0.73-1.22 [facility] Comment on above: Order Comment: Speci men Type: BLOOD SPECIMEN Ordering Facility: [facility] Address: [address] [place] [address] Performed By: #### 2 4323-8, #### [facility] CLIA [id number] [address] [place] [address] Creatinine and Glomerular filtration rate.predicted panel (S/P/Bld) 54 mL/min/1.73m??? Low >=60 [facility] Comment on above: Order Comment: Speci men Type: BLOOD SPECIMEN Ordering Facility: [facility] Address: [address] [place] [address] Result Comment: Doug mated Glomerular Filtration Rate [...] GFR. Performed By: #### 2 4323, #### [facility] CLIA [id number] [address] [place] [address] Glucose [Mass/Vol] 117 mg/dL High 74-99 [facility] Comment on above: Order Comment: Speci men Type: BLOOD SPECIMEN Ordering Facility: [facility] Address: [address] [place] [address] Result Comment: The [place] Diabetes Association (ADA) provides guidance for cutoff [...] Standards of Medical Care in Diabetes 2016, [place] Diabetes Association. Diabetes Care. 2016.39(Suppl 1). Performed By: #### 2 4328, #### [facility] CLIA [id number] [address] [place] [address] Potassium [Moles/Vol] 3.9 mmol/L Normal 3.7-5.1 [facility] Comment on above: Order Comment: Speci men Type: BLOOD SPECIMEN Ordering Facility: [facility] Address: [address] [place] [address] Performed By: #### 2 43206-16, 0 #### [facility] CLIA [id number] [address] [place] [address] Protein [Mass/Vol] 6.2 g/dL Low 6.3-8.0 [facility] Comment on above: Order Comment: Kevin men Type: BLOOD SPECIMEN Ordering Facility: [facility] Address: [address] [place] [address] Performed By: #### 2 43206-16, 0 #### [facility] CLIA [id number] [address] [place] [address] Sodium [Moles/Vol] 134 mmol/L Low 136-144 [facility] Comment on above: Order Comment: Speci men Type: BLOOD SPECIMEN Ordering Facility: [facility] Address: [address] [place] [address] Performed By: #### 2 4323-8, 2532-0 #### [facility] CLIA [id number] [address] [place] [address] Urea nitrogen [Mass/Vol] 23 mg/dL Normal 9-24 [facility] Comment on above: Order Comment: Speci men Type: BLOOD SPECIMEN Ordering Facility: [facility] Address: [address] [place] [address] Performed By: #### 2 4323-8, 2532-0 #### [facility] CLIA [id number] [address] [place], [place] [address] IgG SerPl-mCncon 02-01-2024 IgG [Mass/Vol] 822 mg/dL Normal 700-1600 [facility] Comment on above: Order Comment: Speci men Type: BLOOD SPECIMEN Ordering Facility: [facility] Address: [address] [place] [address] Performed By: #### 2 284-8, 2132-9 #### [facility] CLIA [id number] [address] [place] [address] [place] LACTATE DEHYDROGENASEon 01-10 LDH [Catalytic activity/Vol] 128 U/L Low 135 - 225 U/L [facility] LDH SerPl-cCncon 02-01-2024 LDH [Catalytic activity/Vol] 128 U/L Low 135-225 [facility] Comment on above: Order Comment: Speci men Type: BLOOD SPECIMEN Ordering Facility: [facility] Address: [address] [place] [address] Performed By: #### 2 4323-8, 2532-0 #### [facility] CLIA [id number] [address] [place] [address] LDH [Catalytic activity/Vol] on 02-01-2024 Interpretation and review of laboratory results Abnormal [facility] BASIC METABOLIC PANLon 12-16 Anion gap [Moles/Vol] 6 mmol/L Normal 5-15 [facility] Comment on above: Performed By: #### 2 465-3 #### [facility] ([id number]) [address], [address] [place] [address] Calcium [Mass/Vol] 8.5 mg/dL Normal 8.5-10.5 [facility] Comment on above: Performed By: #### 2 465-3 #### [facility] ([id number]) [address], [address] [place] [address] Chloride [Moles/Vol] 100 mmol/L Normal 98-109 [facility] Comment on above: Performed By: #### 2 465-3 #### [facility] ([id number]) [address], [address] [place] [address] CO2 [Moles/Vol] 22 mmol/L Normal 22-32 [facility] Comment on above: Performed By: #### 2 465-3 #### [facility] ([id number]) [address], [address] [place] [address] Creatinine [Mass/Vol] 1.03 mg/dL Normal 0.70-1.20 [facility] Comment on above: Result Comment: METH OD TRACEABLE TO IDMS STANDARD Performed By: #### 2 465-3 #### [facility] ([id number]) [address], [address] [place] [address] GFR/1.73 sq M.predicted among non-blacks MDRD (S/P/Bld) [Vol rate/Area] 71 mL/min/{1.73_m2} Normal >59 [facility] Comment on above: Result Comment: Reported eGFR is based on the CKD-EPI 2020 equation that does not use a race coefficient. Performed By: #### 2 465-3 #### [facility] ([id number]) [address], [address] [place] [address] Glucose [Mass/Vol] 158 mg/dL High 65-99 [facility] Comment on above: Performed By: #### 2 465-3 #### [facility] ([id number]) [address], [address] [place] [address] Potassium [Moles/Vol] 3.8 mmol/L Normal 3.5-5.0 [facility] Comment on above: Performed By: #### 2 465-3 #### [facility] ([id number]) [address], [address] [place] [address] Sodium [Moles/Vol] 128 mmol/L Low 134-146 [facility] Comment on above: Performed By: #### 2 465-3 #### [facility] ([id number]) [address], [address] [place] [address] Urea nitrogen [Mass/Vol] 33 mg/dL High 5-27 [facility] Comment on above: Performed By: #### 2 465-3 #### [facility] ([id number]) [address], [address] [place] [address] Glucose Glucometer (BldC) [M ass/Vol]on 12-17-2023 Glucose [Mass/Vol] 170 mg/dL High 65-99 [facility] Glucose [Mass/Vol] 122 mg/dL High 65-99 [facility] BASIC METABOLIC PANLon 12-15 Anion gap [Moles/Vol] 9 mmol/L Normal 5-15 [facility] Comment on above: Performed By: #### 2 465-3 #### [facility] ([id number]) [address], [address] [place] [address] Calcium [Mass/Vol] 8.5 mg/dL Normal 8.5-10.5 [facility] Comment on above: Performed By: #### 2 465-3 #### [facility] ([id number]) [address] [place] [address] Chloride [Moles/Vol] 101 mmol/L Normal 98-109 [facility] Comment on above: Performed By: #### 2 465-3 #### [facility] ([id number]) [address] [place] [address] CO2 [Moles/Vol] 21 mmol/L Low 22-32 [facility] Comment on above: Performed By: #### 2 465-3 #### [facility] ([id number]) [address], [address] [place] [address] Creatinine [Mass/Vol] 1.01 mg/dL Normal 0.70-1.20 [facility] Comment on above: Result Comment: METH OD TRACEABLE TO IDMS STANDARD Performed By: #### 2 465-3 #### [facility] ([id number]) [address], [address] [place] [address] GFR/1.73 sq M.predicted among non-blacks MDRD (S/P/Bld) [Vol rate/Area] 73 mL/min/{1.73_m2} Normal >59 [facility] Comment on above: Result Comment: Reported eGFR is based on the CKD-EPI 2020 equation that does not use a race coefficient. Performed By: #### 2 465-3 #### [facility] ([id number]) [address] [place] [address] Glucose [Mass/Vol] 149 mg/dL High 65-99 [facility] Comment on above: Performed By: #### 2 465-3 #### [facility] ([id number]) [address], [address] [place] [address] Potassium [Moles/Vol] 4.1 mmol/L Normal 3.5-5.0 [facility] Comment on above: Performed By: #### 2 465-3 #### [facility] ([id number]) [address], [address] [place] [address] Sodium [Moles/Vol] 131 mmol/L Low 134-146 [facility] Comment on above: Performed By: #### 2 465-3 #### [facility] ([id number]) [address], [address] [place] [address] Urea nitrogen [Mass/Vol] 28 mg/dL High 5-27 [facility] Comment on above: Performed By: #### 2 465-3 #### [facility] ([id number]) [address], [address] [place] [address] CBC AND AUTO DIFFon 12-16-19 24 ABSOLUTE BASOPHIL 0.0 X10E9/L Normal 0.0-0.2 [facility] Comment on above: Performed By: #### 2 465-3 #### [facility] ([id number]) [address], [address] [place] [address] ABSOLUTE NEUTROPHIL 18.8 X10E9/L High 1.5-6.6 [facility] Comment on above: Performed By: #### 2 465-3 #### [facility] ([id number]) [address], [address] [place] [address] Basophils/100 WBC (Bld) 0.1 % Normal [facility] Comment on above: Performed By: #### 2 465-3 #### [facility] ([id number]) [address], [address] [place] [address] Eosinophils (Bld) [#/Vol] 0.0 10*3/uL Normal 0.0-0.4 [facility] Comment on above: Performed By: #### 2 465-3 #### [facility] ([id number]) [address], [address] [place] [address] Eosinophils/100 WBC (Bld) 0.0 % Normal [facility] Comment on above: Performed By: #### 2 465-3 #### [facility] ([id number]) [address], [address] [place] [address] Erythrocyte distribution width (RBC) [Ratio] 14.7 % Normal 11.5-15.0 [facility] Comment on above: Performed By: #### 2 465-3 #### [facility] ([id number]) [address] [facility] [address] [place] [address] Hematocrit (Bld) [Volume fraction] 31.6 % Low 39-49 [facility] Comment on above: Performed By: #### 2 465-3 #### [facility] ([id number]) [address] [address] [place] [address] Hemoglobin (Bld) [Mass/Vol] 10.2 g/dL Low 13.0-17.0 [facility] Comment on above: Performed By: #### 2 465-3 #### [facility] ([id number]) [address], [address] [place] [address] Lymphocytes (Bld) [#/Vol] 4.3 10*3/uL High 1.0-3.5 [facility] Comment on above: Performed By: #### 2 465-3 #### [facility] ([id number]) [address], [address] [place] [address] Lymphocytes/100 WBC (Bld) 18.3 % Normal [facility] Comment on above: Performed By: #### 2 465-3 #### [facility] ([id number]) [address], [address] [place] [address] MCH (RBC) [Entitic mass] 29.3 pg Normal 27-34 [facility] Comment on above: Performed By: #### 2 465-3 #### [facility] ([id number]) [address], [address] [place] [address] MCHC (RBC) [Mass/Vol] 32.2 g/dL Normal 32-36 [facility] Comment on above: Performed By: #### 2 465-3 #### [facility] ([id number]) [address], [address] [place] [address] MCV (RBC) [Entitic vol] 91 fL Normal 80-100 [facility] Comment on above: Performed By: #### 2 465-3 #### [facility] ([id number]) [address], [address] [place] [address] Monocytes (Bld) [#/Vol] 0.3 10*3/uL Normal 0-0.9 [facility] Comment on above: Performed By: #### 2 465-3 #### [facility] ([id number]) [address], [address] [place] [address] Monocytes/100 WBC (Bld) 1.3 % Normal [facility] Comment on above: Performed By: #### 2 465-3 #### [facility] ([id number]) [address], [address] [place] [address] Neutrophils/100 WBC (Bld) 80.3 % Normal [facility] Comment on above: Performed By: #### 2 465-3 #### [facility] ([id number]) [address], [address] [place] [address] Platelet mean volume (Bld) [Entitic vol] 11.2 fL Normal 7-12 [facility] Comment on above: Performed By: #### 2 465-3 #### [facility] ([id number]) [address], [address] [place] [address] Platelets (Bld) [#/Vol] 116 10*3/uL Low 150-450 [facility] Comment on above: Performed By: #### 2 465-3 #### [facility] ([id number]) [address], [address] [place] [address] RBC COUNT 3.47 X10E12/L Low 4.10-5.70 [facility] Comment on above: Performed By: #### 2 465-3 #### [facility] ([id number]) [address], [address] [place] [address] WBC (Bld) [#/Vol] 23.4 10*3/uL High 4.0-11.0 [facility] Comment on above: Performed By: #### 2 465-3 #### [facility] ([id number]) [address], [address] [place] [address] Glucose Glucometer (BldC) [M ass/Vol]on 12-16-2023 Glucose [Mass/Vol] 189 mg/dL High 65-99 [facility] Glucose [Mass/Vol] 158 mg/dL High 65-99 [facility] Glucose [Mass/Vol] 317 mg/dL High 65-99 [facility] Glucose [Mass/Vol] 141 mg/dL High 65-99 [facility] BLOOD CULTUREon 12-15-2023 Bacteria identified Aer cx Nom (Bld) CULTURE RESULTS NO GROWTH 5 DAYS Normal [facility] Bacteria identified Aer cx Nom (Bld) CULTURE RESULTS NO GROWTH 5 DAYS Normal [facility] CBC AND AUTO DIFFon 12-15-19 Erythrocyte distribution width (RBC) [Ratio] 14.5 % Normal 11.5-15.0 [facility] Comment on above: Performed By: #### C MP, CBCA, PINR, 70035-5, 41543-4, 00192-4, THYR #### [facility] ([id number]) [address] [place] [address], [place] [address] Hematocrit (Bld) [Volume fraction] 37.8 % Low 39-49 [facility] Comment on above: Performed By: #### C MP, CBCA, PINR, 86319-4, 06390-3, 62955-8, THYR #### [facility] ([id number]) [address] [place] [address] Hemoglobin (Bld) [Mass/Vol] 12.2 g/dL Low 13.0-17.0 [facility] Comment on above: Performed By: #### C MP, CBCA, PINR, 00425-8, 76148-9, 10507-0, THYR #### [facility] ([id number]) [address] [place] [address] Lymphocytes (Bld) [#/Vol] 3.4 10*3/uL Normal 1.0-3.5 [facility] Comment on above: Performed By: #### C MP, CBCA, PINR, 95139-2, 58980-4, 44444-0, THYR #### [facility] ([id number]) [address] [place] [address] Lymphocytes/100 WBC (Bld) 8.0 % Normal [facility] Comment on above: Performed By: #### C MP, CBCA, PINR, 62948-5, 89933-0, 00817-9, THYR #### [facility] ([id number]) [address] [place] [address] MCH (RBC) [Entitic mass] 29.3 pg Normal 27-34 [facility] Comment on above: Performed By: #### C MP, CBCA, PINR, 01060-0, 50099-3, 22394-0, THYR #### [facility] ([id number]) [address] [place] [address] MCHC (RBC) [Mass/Vol] 32.2 g/dL Normal 32-36 [facility] Comment on above: Performed By: #### C MP, CBCA, PINR, 36951-4, 03217-1, 52503-3, THYR #### [facility] ([id number]) [address] [place] [address] MCV (RBC) [Entitic vol] 91 fL Normal 80-100 [facility] Comment on above: Performed By: #### C MP, CBCA, PINR, 63630-9, 40891-7, 78413-4, THYR #### [facility] ([id number]) [address] [place] [address] Monocytes (Bld) [#/Vol] 3.9 10*3/uL High 0-0.9 [facility] Comment on above: Performed By: #### C MP, CBCA, PINR, 06964-8, 38056-2, 39221-9, THYR #### [facility] ([id number]) [address] [place] [address] Monocytes/100 WBC (Bld) 9.0 % Normal [facility] Comment on above: Performed By: #### C MP, CBCA, PINR, 52239-9, 90091-4, 15322-2, THYR #### [facility] ([id number]) [address] [place] [address] MYELOCYTE 1.0 % Normal [facility] Comment on above: Performed By: #### C MP, CBCA, PINR, 08907-9, 67526-3, 37355-3, THYR #### [facility] ([id number]) [address] [place] [address] Neutrophils (Bld) [#/Vol] 35.2 10*3/uL High 1.5-6.6 [facility] Comment on above: Performed By: #### C MP, CBCA, PINR, 29543-9, 83248-5, 22272-2, THYR #### [facility] ([id number]) [address] [place] [address] Platelet mean volume (Bld) [Entitic vol] 10.8 fL Normal 7-12 [facility] Comment on above: Performed By: #### C MP, CBCA, PINR, 35827-9, 90688-2, 11075-9, THYR #### [facility] ([id number]) [address] [place] [address] Platelets (Bld) [#/Vol] 154 10*3/uL Normal 150-450 [facility] Comment on above: Performed By: #### C MP, CBCA, PINR, 20165-7, 18501-7, 81971-5, THYR #### [facility] ([id number]) [address] [place] [address] RBC COUNT 4.16 X10E12/L Normal 4.10-5.70 [facility] Comment on above: Performed By: #### C MP, CBCA, PINR, 33492-9, 99330-7, 96460-5, THYR #### [facility] ([id number]) [address] [place] [address] RBC morphology finding Nom (Bld) NORMAL Normal [facility] Comment on above: Performed By: #### C MP, CBCA, PINR, 31442-6, 51051-6, 83874-7, THYR #### [facility] ([id number]) [address] [place] [address] 12674 SEG NEUTROPHIL 82.0 % Normal [facility] Comment on above: Performed By: #### C MP, CBCA, PINR, 33355-9, 54547-2, 49502-4, THYR #### [facility] ([id number]) [address] [place] [address] 63525 WBC (Bld) [#/Vol] 42.9 10*3/uL High 4.0-11.0 [facility] Comment on above: Performed By: #### C MP, CBCA, PINR, 36475-4, 22213-3, 81018-8, THYR #### [facility] ([id number]) [address] [place] [address] 30451 COMPREHENSIVE METABOLIC PANE Frank 12-15-2023 Albumin [Mass/Vol] 4.2 g/dL Normal 3.2-5.3 [facility] Comment on above: Performed By: #### C MP, CBCA, PINR, 36014-0, 92533-0, 42097-2, THYR #### [facility] ([id number]) [address] [place] [address] 15493 ALP [Catalytic activity/Vol] 124 U/L Normal 39-130 [facility] Comment on above: Performed By: #### C MP, CBCA, PINR, 15046-1, 53058-4, 48091-3, THYR #### [facility] ([id number]) [address] [place] [address] ALT [Catalytic activity/Vol] 25 U/L Normal 0-40 [facility] Comment on above: Performed By: #### C MP, CBCA, PINR, 72280-4, 85517-6, 82719-0, THYR #### [facility] ([id number]) [address] [place] [address] [place] [address] Anion gap [Moles/Vol] 9 mmol/L Normal 5-15 [facility] Comment on above: Performed By: #### C MP, CBCA, PINR, 28521-3, 71275-6, 12911-9, THYR #### [facility] ([id number]) [address] [place] [address] AST [Catalytic activity/Vol] 32 U/L Normal 0-41 [facility] Comment on above: Performed By: #### C MP, CBCA, PINR, 96735-4, 91905-6, 51410-5, THYR #### [facility] ([id number]) [address] [place] [address] [place] [address] Bilirubin [Mass/Vol] 2.3 mg/dL High 0.3-1.2 [facility] Comment on above: Performed By: #### C MP, CBCA, PINR, 49287-6, 27892-6, 52908-3, THYR #### [facility] ([id number]) [address] [place] [address] Calcium [Mass/Vol] 9.4 mg/dL Normal 8.5-10.5 [facility] Comment on above: Performed By: #### C MP, CBCA, PINR, 92708-5, 42860-0, 01823-6, THYR #### [facility] ([id number]) [address] [place] [address], [place] [address] Chloride [Moles/Vol] 100 mmol/L Normal 98-109 [facility] Comment on above: Performed By: #### C MP, CBCA, PINR, 51854-0, 53076-2, 75146-2, THYR #### [facility] ([id number]) [address] [place] [address], [place] [address] CO2 [Moles/Vol] 24 mmol/L Normal 22-32 [facility] Comment on above: Performed By: #### C MP, CBCA, PINR, 19781-8, 46217-4, 94494-0, THYR #### [facility] ([id number]) [address] [place] [address], [place] [address] Creatinine [Mass/Vol] 1.40 mg/dL High 0.70-1.20 [facility] Comment on above: Result Comment: METH OD TRACEABLE TO IDMS STANDARD Performed By: #### C MP, CBCA, PINR, 02236-5, 84990-4, 02130-9, THYR #### [facility] ([id number]) [address] [place] [address] GFR/1.73 sq M.predicted among non-blacks MDRD (S/P/Bld) [Vol rate/Area] 49 mL/min/{1.73_m2} Low >59 [facility] Comment on above: Result Comment: Reported eGFR is based on the CKD-EPI 2020 equation that does not use a race coefficient. Performed By: #### C MP, CBCA, PINR, 52988-6, 90471-7, 21141-3, THYR #### [facility] ([id number]) [address] [place] [address] Glucose [Mass/Vol] 112 mg/dL High 65-99 [facility] Comment on above: Performed By: #### C MP, CBCA, PINR, 47934-6, 17404-8, 97212-6, THYR #### [facility] ([id number]) [address] [place] [address] Potassium [Moles/Vol] 3.9 mmol/L Normal 3.5-5.0 [facility] Comment on above: Performed By: #### C MP, CBCA, PINR, 44333-3, 55763-9, 64525-4, THYR #### [facility] ([id number]) [address] [place] [address] Protein [Mass/Vol] 6.9 g/dL Normal 6.0-8.0 [facility] Comment on above: Performed By: #### C MP, CBCA, PINR, 64489-6, 78657-6, 00208-3, THYR #### [facility] ([id number]) [address] [place] [address], [place] [address] Sodium [Moles/Vol] 133 mmol/L Low 134-146 [facility] Comment on above: Performed By: #### C MP, CBCA, PINR, 73221-8, 39128-9, 32709-3, THYR #### [facility] ([id number]) [address] [place] [address] Urea nitrogen [Mass/Vol] 26 mg/dL Normal 5-27 [facility] Comment on above: Performed By: #### C MP, CBCA, PINR, 93626-2, 78827-8, 39397-3, THYR #### [facility] ([id number]) [address] [place] [address] CT CHEST WO CONTon CT CHEST WO [...] Upton MD on 12/15/2023 7:26 PM Normal [facility] Glucose Glucometer (BldC) [M ass/Vol]on 12-15-2023 Glucose [Mass/Vol] 118 mg/dL High 65-99 [facility] LOWER RESPIRATORY CULTUREon 12-15-2023 Bacteria identified Respiratory [...] <=1 F PIPERACIL/TAZOBACTAM S <=4 F Susceptible [facility] Comment on above: Performed By: #### 2 465-3 #### [facility] ([id number]) [address], [address] [place] [address] Lactate (P ramón) [Moles/Vol]o n 12-15-2023 LACTATE W/REFLEX 1.4 mmol/L Normal 0.4-2.0 [facility] Comment on above: Result Comment: Result did not trigger repeat Lactate, re-order if needed. Performed By: #### C MP #### [facility] ([id number]) [address] [facility], [address] [place] [address] MAGNESIUMon 12-15-2023 Magnesium [Mass/Vol] 1.9 mg/dL Normal 1.8-2.6 [facility] Comment on above: Performed By: #### C MP, CBCA, PINR, 69086-8, 85792-2, 09127-5, THYR #### [facility] ([id number]) [address] [place] [address] PROTIME AND INRon 12-15-2023 INR Coag (PPP) [Relative time] 1.1 {INR} Normal 0.8-1.1 [facility] Comment on above: Performed By: #### C MP, CBCA, PINR, 99778-2, 01597-3, 74356-4, THYR #### [facility] ([id number]) [address] [place] [address] PT Coag (PPP) [Time] 12.9 s Normal 9.8-13.2 [facility] Comment on above: Result Comment: NEW REFERENCE RANGE Performed By: #### C MP, CBCA, PINR, 20680-1, 15149-7, 02512-8, THYR #### [facility] ([id number]) [address] [place] [address] Procalcitonin IA [Mass/Vol]o n 12-15-2023 PROCALCITONIN 0.59 ng/mL High <0.05 [facility] Comment on above: Result Comment: NOTE <0.50 ng/mL - Low risk of severe sepsis and/or septic shock. <2.00 ng/mL - Recommend retesting within 6-24 hours. >2.00 ng/mL - High risk of sepsis and/or septic shock. Performed By: #### C MP #### [facility] ([id number]) [address] [facility], [address] [place] [address] SARS/FLU A+B/RSV by NAAT/Mol ecularon 12-15-2023 SARS/FLU [...] operators who are performing tests using either [employer] or [employer] systems and is limited to laboratories that [...] repeat. Fact Sheet for Healthcare Providers: https://www.fda.gov/media /818104/download Fact Sheet for Patients: https://www.fda.gov/media /170887/download Normal [facility] Comment on above: Performed By: #### C MP #### [facility] ([id number]) [address] [place] [address], [address] [place] [address] THYROID PROFILEon 12-15-2023 Free T4 [Mass/Vol] 1.03 ng/dL Normal 0.61-1.60 [facility] Comment on above: Performed By: #### C MP #### [facility] ([id number]) [address], [address] [place] [address] TSH 1.05 uIU/mL Normal 0.49-4.67 [facility] Comment on above: Performed By: #### C MP #### [facility] ([id number]) [address], [address] [place] [address] URN MACROSCOPIC NURon 2023 BILIRUBIN AUDRA Negative Normal NEG [facility] Comment on above: Performed By: #### C MP #### [facility] ([id number]) [address], [address] [place] [address] BLOOD/HGB AUDRA Small Abnormal NEG [facility] Comment on above: Performed By: #### C MP #### [facility] ([id number]) [address], [address] [place] [address] GLUCOSE AUDRA Negative Normal NEG [facility] Comment on above: Performed By: #### C MP #### [facility] ([id number]) [address], [address] [place] [address] KETONES AUDRA Negative Normal NEG [facility] Comment on above: Performed By: #### C MP #### [facility] ([id number]) [address], [address] [place] [address] LEUKOCYTE ESTERASE AUDRA Negative Normal NEG [facility] Comment on above: Performed By: #### C MP #### [facility] ([id number]) [address], [address] [place] [address] NITRITE AUDRA Negative Normal NEG [facility] Comment on above: Performed By: #### C MP #### [facility] ([id number]) [address], [address] [place] [address] PH AUDRA 7.0 Normal 5.0-8.5 [facility] Comment on above: Performed By: #### C MP #### [facility] ([id number]) [address], [address] [place] [address] PROTEIN AUDRA Negative Normal NEG [facility] Comment on above: Performed By: #### C MP #### [facility] ([id number]) [address], [address] [place] [address] SPECIFIC GRAVITY AUDRA 1.020 Normal 1.003-1.035 [facility] Comment on above: Performed By: #### C MP #### [facility] ([id number]) [address], [address] [place] [address] UROBILINOGEN AUDRA 0.2 eu/dL Normal <1.1 [facility] Comment on above: Performed By: #### C MP #### [facility] ([id number]) [address], [address] [place] [address] XR CHEST 1 VWon 12-15-2023 XR CHEST [...] Rubi MD on 12/15/2023 2:57 PM Normal [facility] aPTT Coag (PPP) [Time]on aPTT Coag (Bld) [Time] 37 s Normal 26-37 [facility] Comment on above: Result Comment: NEW REFERENCE RANGE Performed By: #### C MP, CBCA, PINR, 66269-7, 15751-5, 81717-8, THYR #### [facility] ([id number]) [address] [facility], [place] [address] IGGon 10-25-2023 IgG [Mass/Vol] 795 mg/dL Normal 635-1741 [facility] Comment on above: Performed By: #### 2 465-3 #### [facility] ([id number]) [address], [address] [place] [address] BASIC METABOLIC PANLon 09-06 Anion gap [Moles/Vol] 7 mmol/L Normal 5-15 [facility] Comment on above: Performed By: #### C BCA, BMP #### [facility] ([id number]) [address], [address] [place] [address] Calcium [Mass/Vol] 9.0 mg/dL Normal 8.5-10.5 [facility] Comment on above: Performed By: #### C BCA, BMP #### [facility] ([id number]) [address], [address] [place] [address] Chloride [Moles/Vol] 95 mmol/L Low 98-109 [facility] Comment on above: Performed By: #### C BCA, BMP #### [facility] ([id number]) [address], [address] [place] [address] CO2 [Moles/Vol] 26 mmol/L Normal 22-32 [facility] Comment on above: Performed By: #### C BCA, BMP #### [facility] ([id number]) [address], [address] [place] [address] Creatinine [Mass/Vol] 1.38 mg/dL High 0.60-1.30 [facility] Comment on above: Result Comment: METH OD TRACEABLE TO IDMS STANDARD Performed By: #### C BCA, BMP #### [facility] ([id number]) [address] [address] [place] [address] GFR/1.73 sq M.predicted among non-blacks MDRD (S/P/Bld) [Vol rate/Area] 50 mL/min/{1.73_m2} Low >59 [facility] Comment on above: Result Comment: Reported eGFR is based on the CKD-EPI 2020 equation that does not use a race coefficient. Performed By: #### C BCA, BMP #### [facility] ([id number]) [address], [address] [place] [address] Glucose [Mass/Vol] 83 mg/dL Normal 65-99 [facility] Comment on above: Performed By: #### C BCA, BMP #### [facility] ([id number]) [address] [address] Potassium [Moles/Vol] 4.3 mmol/L Normal 3.5-5.0 [facility] Comment on above: Performed By: #### C BCA, BMP #### [facility] ([id number]) [address] [address] [place] [address] Sodium [Moles/Vol] 128 mmol/L Low 134-146 [facility] Comment on above: Performed By: #### C BCA, BMP #### [facility] ([id number]) [address] [address] [place] [address] Urea nitrogen [Mass/Vol] 24 mg/dL Normal 5-27 [facility] Comment on above: Performed By: #### C BCA, BMP #### [facility] ([id number]) [address] [address] [place] [address] Basic Metabolic Panelon 05-2 Anion gap [Moles/Vol] 7 mmol/L 5 - 15 mmol/L [facility] Calcium [Mass/Vol] 9.0 mg/dL 8.5 - 10. 5 mg/dL [facility] Chloride [Moles/Vol] 95 mmol/L Low 98 - 109 mmol/L [facility] CO2 [Moles/Vol] 26 mmol/L 22 - 32 mmol/L [facility] Creatinine [Mass/Vol] 1.38 mg/dL High 0.60 - 1.30 mg/dL [facility] Comment on above: METHOD TRACEABLE TO [facility] STANDARD eGFR (CKD-EPI)non-race dependent 50 Low - PINF [facility] Comment on above: Reported eGFR is based on the CKD-EPI 2020 equation that does not use a race coefficient. Glucose [Mass/Vol] 83 mg/dL 65 - 99 mg/dL [facility] Interpretation and review of laboratory results Abnormal [facility] Potassium [Moles/Vol] 4.3 mmol/L 3.5 - 5.0 mmol/L [facility] Sodium [Moles/Vol] 128 mmol/L Low 134 - 146 mmol/L [facility] Urea nitrogen [Mass/Vol] 24 mg/dL 5 - 27 mg/dL [facility] CBC AND AUTO DIFFon 09-07-19 24 ACANTHOCYTE 1+ Abnormal NONE [facility] Comment on above: Performed By: #### C CATRACHITO, BMP #### [facility] ([id number]) [address], [address] [place] [address] LATIA 1+ Abnormal NONE [facility] Comment on above: Performed By: #### C CATRACHITO, BMP #### [facility] ([id number]) [address], [address] [place] [address] Eosinophils (Bld) [#/Vol] 0.5 10*3/uL High 0.0-0.4 [facility] Comment on above: Performed By: #### Jeronimo WINSTON, BMP #### [facility] ([id number]) [address], [address] [place] [address] Eosinophils/100 WBC (Bld) 2.0 % Normal [facility] Comment on above: Performed By: #### C BCA, BMP #### [facility] ([id number]) [address], [address] [place] [address] Erythrocyte distribution width (RBC) [Ratio] 14.3 % Normal 11.5-15.0 [facility] Comment on above: Performed By: #### C BCA, BMP #### [facility] ([id number]) [address], [address] [place] [address] Hematocrit (Bld) [Volume fraction] 33.4 % Low 39-49 [facility] Comment on above: Performed By: #### C CATRACHITO, BMP #### [facility] ([id number]) [address], [address] [place] [address] Hemoglobin (Bld) [Mass/Vol] 11.2 g/dL Low 13.0-17.0 [facility] Comment on above: Performed By: #### C CATRACHITO, BMP #### [facility] ([id number]) [address], [address] [place] [address] Lymphocytes (Bld) [#/Vol] 5.0 10*3/uL High 1.0-3.5 [facility] Comment on above: Performed By: #### C CATRACHITO, BMP #### [facility] ([id number]) [address], [address] [place] [address] Lymphocytes/100 WBC (Bld) 22.0 % Normal [facility] Comment on above: Performed By: #### C BCA, BMP #### [facility] ([id number]) [address], [address] [place] [address] MCH (RBC) [Entitic mass] 30.4 pg Normal 27-34 [facility] Comment on above: Performed By: #### C BCA, BMP #### [facility] ([id number]) [address], [address] [place] [address] MCHC (RBC) [Mass/Vol] 33.6 g/dL Normal 32-36 [facility] Comment on above: Performed By: #### C CATRACHITO, BMP #### [facility] ([id number]) [address], [address] [place] [address] MCV (RBC) [Entitic vol] 90 fL Normal 80-100 [facility] Comment on above: Performed By: #### C CATRACHITO, BMP #### [facility] ([id number]) [address], [address] [place] [address] Monocytes (Bld) [#/Vol] 1.8 10*3/uL High 0-0.9 [facility] Comment on above: Performed By: #### Jeronimo WINSTON, BMP #### [facility] ([id number]) [address], [address] [place] [address] Monocytes/100 WBC (Bld) 8.0 % Normal [facility] Comment on above: Performed By: #### C CATRACHITO, BMP #### [facility] ([id number]) [address], [address] [place] [address] MYELOCYTE 1.0 % Normal [facility] Comment on above: Performed By: #### Jeronimo WINSTON, BMP #### [facility] ([id number]) [address], [address] [place] [address] Neutrophils (Bld) [#/Vol] 15.0 10*3/uL High 1.5-6.6 [facility] Comment on above: Performed By: #### C CATRACHITO, BMP #### [facility] ([id number]) [address], [address] [place] [address] OVALOCYTE 1+ Abnormal NONE [facility] Comment on above: Performed By: #### C CATRACHITO, BMP #### [facility] ([id number]) [address], [address] [place] [address] Platelet mean volume (Bld) [Entitic vol] 9.4 fL Normal 7-12 [facility] Comment on above: Performed By: #### Jeronimo WINSTON, BMP #### [facility] ([id number]) [address], [address] [address] Platelets (Bld) [#/Vol] 234 10*3/uL Normal 150-450 [facility] Comment on above: Performed By: #### Jeronimo WINSTON, BMP #### [facility] ([id number]) [address], [facility] [address] [place] [address] RBC COUNT 3.70 X10E12/L Low 4.10-5.70 [facility] Comment on above: Performed By: #### Jeronimo WINSTON, BMP #### [facility] ([id number]) [address], [address] [address] SEG NEUTROPHIL 67.0 % Normal [facility] Comment on above: Performed By: #### Jeronimo WINSTON, BMP #### [facility] ([id number]) [address], [address] [address] WBC (Bld) [#/Vol] 22.5 10*3/uL High 4.0-11.0 [facility] Comment on above: Performed By: #### Jeronimo WINSTON, BMP #### [facility] ([id number]) [address], [address] [address] CBC auto differentialon 05-2 Acanthocytes LM Ql (Bld) 1+ Abnormal NONE^NONE [facility] Latia cells LM Ql (Bld) 1+ Abnormal NONE^NONE [facility] Eosinophils (Bld) [#/Vol] 0.5 10*3/uL High [facility] Eosinophils/100 WBC (Bld) 2.0 % [facility] Erythrocyte distribution width (RBC) [Ratio] 14.3 % 11.5 - 15.0 % [facility] Hematocrit (Bld) [Volume fraction] 33.4 % Low 39 - 49 % [facility] Hemoglobin (Bld) [Mass/Vol] 11.2 g/dL Low 13.0 - 17.0 g/dL [facility] Interpretation and review of laboratory results Abnormal [facility] Lymphocytes (Bld) [#/Vol] 5.0 10*3/uL High [facility] Lymphocytes/100 WBC (Bld) 22.0 % [facility] MCH (RBC) [Entitic mass] 30.4 pg 27 - 34 pg [facility] MCHC (RBC) [Mass/Vol] 33.6 g/dL 32 - 36 g/dL [facility] MCV (RBC) [Entitic vol] 90 fL 80 - 100 fL [facility] Monocytes (Bld) [#/Vol] 1.8 10*3/uL High [facility] Monocytes/100 WBC (Bld) 8.0 % [facility] Myelocytes/100 WBC (Bld) 1.0 % [facility] Neutrophils (Bld) [#/Vol] 15.0 10*3/uL High [facility] Ovalocytes LM Ql (Bld) 1+ Abnormal NONE^NONE [facility] Platelet mean volume (Bld) [Entitic vol] 9.4 fL 7 - 12 fL [facility] Platelets (Bld) [#/Vol] 234 10*3/uL [facility] RBC (Bld) [#/Vol] 3.70 10*6/uL Low [facility] Segmented neutrophils/100 WBC (Bld) 67.0 % [facility] WBC corrected for nucl RBC Auto (Bld) [#/Vol] 22.5 [facility] System XR CHEST 2 VWSon 07-05-2023 XR CHEST 2 VWS XR CHEST 2 VWS CHEST 2 VIEWS HISTORY: Bronchiectasis COMPARISON: CT chest 04/27/2023 IMPRESSION: * Extensive bronchiectasis in each lung with associated bronchial wall thickening, right worse than left. * No pleural effusions or pneumothorax. Finalized by Rabia Dias MD on 07/05/2023 7:54 AM Normal [facility] IGGon 06-09-2023 IgG [Mass/Vol] 826 mg/dL Normal 635-1741 [facility] Comment on above: Performed By: #### 2 465-3 #### [facility] ([id number]) [address], [address] [place] [address] COMPREHENSIVE METABOLIC PANE Frank 06-07-2023 Albumin [Mass/Vol] 3.7 g/dL Normal 3.2-5.3 [facility] Comment on above: Performed By: #### C MP #### [facility] ([id number]) [address], [address] [place] [address] ALP [Catalytic activity/Vol] 115 U/L Normal 39-130 [facility] Comment on above: Performed By: #### C MP #### [facility] ([id number]) [address], [address] [place] [address] ALT [Catalytic activity/Vol] 10 U/L Normal 0-40 [facility] Comment on above: Performed By: #### C MP #### [facility] ([id number]) [address], [address] [place] [address] Anion gap [Moles/Vol] 8 mmol/L Normal 5-15 [facility] Comment on above: Performed By: #### C MP #### [facility] ([id number]) [address], [address] [place] [address] AST [Catalytic activity/Vol] 16 U/L Normal 0-41 [facility] Comment on above: Performed By: #### C MP #### [facility] ([id number]) [address], [address] [place] [address] Bilirubin [Mass/Vol] 0.7 mg/dL Normal 0.3-1.2 [facility] Comment on above: Performed By: #### C MP #### [facility] ([id number]) [address], [address] [place] [address] Calcium [Mass/Vol] 9.1 mg/dL Normal 8.5-10.5 [facility] Comment on above: Performed By: #### C MP #### [facility] ([id number]) [address], [address] [place] [address] Chloride [Moles/Vol] 96 mmol/L Low 98-109 [facility] Comment on above: Performed By: #### C MP #### [facility] ([id number]) [address], [address] [place] [address] CO2 [Moles/Vol] 28 mmol/L Normal 22-32 [facility] Comment on above: Performed By: #### C MP #### [facility] ([id number]) [address] [place] [address] Creatinine [Mass/Vol] 1.18 mg/dL Normal 0.60-1.30 [facility] Comment on above: Result Comment: METH OD TRACEABLE TO IDMS STANDARD Performed By: #### C MP #### [facility] ([id number]) [address] [address] [place] [address] GFR/1.73 sq M.predicted among non-blacks MDRD (S/P/Bld) [Vol rate/Area] 61 mL/min/{1.73_m2} Normal >59 [facility] Comment on above: Result Comment: Reported eGFR is based on the CKD-EPI 2020 equation that does not use a race coefficient. Performed By: #### C MP #### [facility] ([id number]) [address] [address] [place] [address] Glucose [Mass/Vol] 88 mg/dL Normal 65-99 [facility] Comment on above: Performed By: #### C MP #### [facility] ([id number]) [address] [address] [place] [address] Potassium [Moles/Vol] 3.8 mmol/L Normal 3.5-5.0 [facility] Comment on above: Performed By: #### C MP #### [facility] ([id number]) [address], [address] [place] [address] Protein [Mass/Vol] 6.0 g/dL Normal 6.0-8.0 [facility] Comment on above: Performed By: #### C MP #### [facility] ([id number]) [address], [address] [place] [address] Sodium [Moles/Vol] 132 mmol/L Low 134-146 [facility] Comment on above: Performed By: #### C MP #### [facility] ([id number]) [address], [address] [place] [address] Urea nitrogen [Mass/Vol] 20 mg/dL Normal 5-27 [facility] Comment on above: Performed By: #### C MP #### [facility] ([id number]) [address], [address] [place] [address] COMPLETE BLOOD COUNTon 05-24 Erythrocyte distribution width (RBC) [Ratio] 14.9 % Normal 11.5-15.0 [facility] Comment on above: Performed By: #### C BC #### [facility] ([id number]) [address] [address] [place] [address] Hematocrit (Bld) [Volume fraction] 38.7 % Low 39-49 [facility] Comment on above: Performed By: #### C BC #### [facility] ([id number]) [address] [address] [place] [address] Hemoglobin (Bld) [Mass/Vol] 12.5 g/dL Low 13.0-17.0 [facility] Comment on above: Performed By: #### C BC #### [facility] ([id number]) [address], [address] [place] [address] MCH (RBC) [Entitic mass] 29.6 pg Normal 27-34 [facility] Comment on above: Performed By: #### C BC #### [facility] ([id number]) [address], [address] [place] [address] MCHC (RBC) [Mass/Vol] 32.2 g/dL Normal 32-36 [facility] Comment on above: Performed By: #### C BC #### [facility] ([id number]) [address], [address] [place] [address] MCV (RBC) [Entitic vol] 92 fL Normal 80-100 [facility] Comment on above: Performed By: #### C BC #### [facility] ([id number]) [address], [address] [place] [address] Platelet mean volume (Bld) [Entitic vol] 9.5 fL Normal 7-12 [facility] Comment on above: Performed By: #### C BC #### [facility] ([id number]) [address], [address] [place] [address] Platelets (Bld) [#/Vol] 244 10*3/uL Normal 150-450 [facility] Comment on above: Performed By: #### C BC #### [facility] ([id number]) [address], [address] [place] [address] RBC COUNT 4.21 X10E12/L Normal 4.10-5.70 [facility] Comment on above: Performed By: #### C BC #### [facility] ([id number]) [address], [address] [place] [address] WBC (Bld) [#/Vol] 23.5 10*3/uL High 4.0-11.0 [facility] Comment on above: Performed By: #### C BC #### [facility] ([id number]) [address], [address] [place] [address] COMPREHENSIVE METABOLIC PANE Frank 05-24-2023 Albumin [Mass/Vol] 3.8 g/dL Normal 3.2-5.3 [facility] Comment on above: Performed By: #### C ROMINA, 85394-7 #### [facility] ([id number]) [address], [address] [place] [address] ALP [Catalytic activity/Vol] 112 U/L Normal 39-130 [facility] Comment on above: Performed By: #### Jeronimo VANEGAS, 69289-6 #### [facility] ([id number]) [address], [address] [place] [address] ALT [Catalytic activity/Vol] 10 U/L Normal 0-40 [facility] Comment on above: Performed By: #### Jeronimo VANEGAS, 69509-2 #### [facility] ([id number]) [address], [address] [place] [address] Anion gap [Moles/Vol] 6 mmol/L Normal 5-15 [facility] Comment on above: Performed By: #### Jeronimo VANEGAS, 40895-0 #### [facility] ([id number]) [address], [address] [place] [address] AST [Catalytic activity/Vol] 17 U/L Normal 0-41 [facility] Comment on above: Performed By: #### Jeronimo VANEGAS, 97809-5 #### [facility] ([id number]) [address], [address] [place] [address] Bilirubin [Mass/Vol] 0.8 mg/dL Normal 0.3-1.2 [facility] Comment on above: Performed By: #### Jeronimo VANEGAS, 44005-5 #### [facility] ([id number]) [address], [address] [place] [address] Calcium [Mass/Vol] 9.6 mg/dL Normal 8.5-10.5 [facility] Comment on above: Performed By: #### Jeronimo VANEGAS, 31646-6 #### [facility] ([id number]) [address], [address] [place] [address] Chloride [Moles/Vol] 97 mmol/L Low 98-109 [facility] Comment on above: Performed By: #### Jeronimo VANEGAS, 78042-3 #### [facility] ([id number]) [address], [address] [place] [address] CO2 [Moles/Vol] 30 mmol/L Normal 22-32 [facility] Comment on above: Performed By: #### Jeronimo VANEGAS, 95273-1 #### [facility] ([id number]) [address] [place] [address] Creatinine [Mass/Vol] 1.22 mg/dL Normal 0.60-1.30 [facility] Comment on above: Result Comment: METH OD TRACEABLE TO IDMS STANDARD Performed By: #### Jeronimo VANEGAS, 76988-7 #### [facility] ([id number]) [address], [facility] [address] [place] [address] GFR/1.73 sq M.predicted among non-blacks MDRD (S/P/Bld) [Vol rate/Area] 58 mL/min/{1.73_m2} Low >59 [facility] Comment on above: Result Comment: Reported eGFR is based on the CKD-EPI 1 equation that does not use a race coefficient. Performed By: #### Jeronimo VANEGAS, 85569-7 #### [facility] ([id number]) [address], [address] [place] [address] Glucose [Mass/Vol] 94 mg/dL Normal 65-99 [facility] Comment on above: Performed By: #### Jeronimo VANEGAS, 48274-1 #### [facility] ([id number]) [address], [address] [place] [address] Potassium [Moles/Vol] 4.1 mmol/L Normal 3.5-5.0 [facility] Comment on above: Performed By: #### Jeronimo VANEGAS, 30967-4 #### [facility] ([id number]) [address], [address] [place] [address] Protein [Mass/Vol] 6.7 g/dL Normal 6.0-8.0 [facility] Comment on above: Performed By: #### Jeronimo VANEGAS, 20024-2 #### [facility] ([id number]) [address], [address] [place] [address] Sodium [Moles/Vol] 133 mmol/L Low 134-146 [facility] Comment on above: Performed By: #### Jeronimo VANEGAS, 84633-3 #### [facility] ([id number]) [address], [address] [place] [address] Urea nitrogen [Mass/Vol] 17 mg/dL Normal 5-27 [facility] Comment on above: Performed By: #### Jeronimo VANEGAS, 03475-3 #### [facility] ([id number]) [address], [address] [place] [address] Comprehensive metabolic pane frank 05-24-2023 Albumin [Mass/Vol] 3.8 g/dL 3.2 - 5.3 g/dL [facility] ALP [Catalytic activity/Vol] 112 U/L 39 - 130 U/L [facility] ALT No additional P-5'-P [Catalytic activity/Vol] 10 U/L 0 - 40 U/L [facility] Anion gap [Moles/Vol] 6 mmol/L 5 - 15 mmol/L [facility] AST [Catalytic activity/Vol] 17 U/L 0 - 41 U/L [facility] Bilirubin [Mass/Vol] 0.8 mg/dL 0.3 - 1.2 mg/dL [facility] Calcium [Mass/Vol] 9.6 mg/dL 8.5 - 10. 5 mg/dL [facility] Chloride [Moles/Vol] 97 mmol/L Low 98 - 109 mmol/L [facility] CO2 [Moles/Vol] 30 mmol/L 22 - 32 mmol/L [facility] Creatinine [Mass/Vol] 1.22 mg/dL 0.60 - 1.30 mg/dL [facility] Comment on above: METHOD TRACEABLE TO [facility] STANDARD eGFR (CKD-EPI)non-race dependent 58 Low - PINF [facility] Comment on above: Reported eGFR is based on the CKD-EPI 2020 equation that does not use a race coefficient. Glucose [Mass/Vol] 94 mg/dL 65 - 99 mg/dL [facility] Potassium [Moles/Vol] 4.1 mmol/L 3.5 - 5.0 mmol/L [facility] Protein [Mass/Vol] 6.7 g/dL 6.0 - 8.0 g/dL [facility] Sodium [Moles/Vol] 133 mmol/L Low 134 - 146 mmol/L [facility] Urea nitrogen [Mass/Vol] 17 mg/dL 5 - 27 mg/dL [facility] Lipid 1996 panelon 4 Cholesterol [Mass/Vol] 98 mg/dL Low 150 - 200 mg/dL [facility] Cholesterol in HDL [Mass/Vol] 45 mg/dL 39 - PINF mg/dL [facility] Comment on above: HDL <40 mg/dL - High Risk HDL > or = 40mg/dL- Desirable HDL >60 mg/dL - Negative Risk Cholesterol in LDL [Mass/Vol] 40 mg/dL NINF - 130 mg/dL [facility] Comment on above: LDL <100 mg/dL - Desirable LDL >160 mg/dL - High Risk Cholesterol in VLDL [Mass/Vol] 13 mg/dL 0 - 30 mg/dL [facility] Cholesterol.total/ Cholesterol in HDL [Mass ratio] 2.2 {ratio} 1.0 - 5.0 [facility] Triglyceride [Mass/Vol] 63 mg/dL 27 - 150 mg/dL [facility] Cholesterol [Mass/Vol] 98 mg/dL Low 150-200 [facility] Comment on above: Performed By: #### Jeronimo VANEGAS, 75512-2 #### [facility] ([id number]) [address], [address] [place] [address] Cholesterol in HDL [Mass/Vol] 45 mg/dL Normal >39 [facility] Comment on above: Result Comment: HDL <40 mg/dL - High Risk HDL > or = 40mg/dL- Desirable HDL >60 mg/dL - Negative Risk Performed By: #### Jeronimo VANEGAS, 09867-7 #### [facility] ([id number]) [address], [address] [place] [address] Cholesterol in LDL [Mass/Vol] 40 mg/dL Normal <130 [facility] Comment on above: Result Comment: LDL <100 mg/dL - Desirable LDL >160 mg/dL - High Risk Performed By: #### Jeronimo VANEGAS, 47647-6 #### [facility] ([id number]) [address], [address] [place] [address] Cholesterol in VLDL [Mass/Vol] 13 mg/dL Normal 0-30 [facility] Comment on above: Performed By: #### Jeronimo VANEGAS, 00832-6 #### [facility] ([id number]) [address], [address] [place] [address] CHOLESTEROL:HDL 2.2 Normal 1.0-5.0 [facility] Comment on above: Performed By: #### C ROMINA, 55139-3 #### [facility] ([id number]) [address] [facility], [address] [place] [address] Triglyceride [Mass/Vol] 63 mg/dL Normal 27-150 [facility] Comment on above: Performed By: #### C ROMINA, 96641-4 #### [facility] ([id number]) [address] [facility], [address] [place] [address] No Panel Informationon 05-24 Interpretation and review of laboratory results Abnormal [facility] IGGon 05-05-2023 IgG [Mass/Vol] 748 mg/dL Normal 635-1741 [facility] Comment on above: Performed By: #### 2 465-3 #### [facility] ([id number]) [address] [facility], [address] [place] [address] Comprehensive metabolic 2000 panelon 02-02-2023 Albumin [Mass/Vol] 3.9 g/dL 3.9 - 4.9 g/dL [facility] ALP [Catalytic activity/Vol] 107 U/L 38 - 113 U/L [facility] ALT [Catalytic activity/Vol] 8 U/L Low 10 - 54 U/L [facility] Anion gap [Moles/Vol] 5 mmol/L Low 9 - 18 mmol/L [facility] AST [Catalytic activity/Vol] 14 U/L 14 - 40 U/L [facility] Bilirubin [Mass/Vol] 0.5 mg/dL 0.2 - 1.3 mg/dL [facility] Calcium [Mass/Vol] 9.0 mg/dL 8.5 - 10. 2 mg/dL [facility] Chloride [Moles/Vol] 97 mmol/L 97 - 105 mmol/L [facility] CO2 [Moles/Vol] 28 mmol/L 22 - 30 mmol/L [facility] Creatinine [Mass/Vol] 1.26 mg/dL High 0.73 - 1.22 mg/dL [facility] Estimated Glomerular Filtration Rate 56 mL/min/1.73m Low >=60 mL/min/1.73m [facility] Glucose [Mass/Vol] 99 mg/dL 74 - 99 mg/dL [facility] Potassium [Moles/Vol] 4.1 mmol/L 3.7 - 5.1 mmol/L [facility] Protein [Mass/Vol] 6.4 g/dL 6.3 - 8.0 g/dL [facility] Sodium [Moles/Vol] 130 mmol/L Low 136 - 144 mmol/L [facility] Urea nitrogen [Mass/Vol] 20 mg/dL 9 - 24 mg/dL [facility] LD LACTATE DEHYDROon 023 LDH [Catalytic activity/Vol] 124 U/L Low 135 - 225 U/L [facility] Office Visiton 11-12-2022 Follow-up visit Diagnoses/Problems 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) Asthma, unspecified asthma severity, unspecified whether complicated, unspecified whether persistent (493.90) (J45.909) Chronic sinusitis (473.9) (J32.9) Bronchiectasis (494.0) (J47.9) CKD (chronic kidney disease) (585.9) (N18.9) Orders Asthma, unspecified asthma severity, unspecified whether complicated, unspecified whether persistent Asthma Control Flowsheet; Status:Complete; Done: [id number] Bronchiectasis, CVID (common variable immunodeficiency) Immunoglobulin G Level, Serum; Status:Active; Requested for:[id number]; Chronic sinusitis Start: Nasacort Allergy 24HR 55 MCG/ACT Nasal Aerosol; INSTILL 2 SPRAY Daily CKD (chronic kidney disease) Comprehensive Metabolic Panel; Status:Active; Requested for:[id number]; Patient Discussion/Summary Continue Hizentra infusions. Have IgG [...] sure to look down while using it. 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 Normal [facility] Office Visiton 08-06-2022 Follow-up visit Diagnoses/Problems Asthma, [...] needed. 3. Bronchiectasis - Chronic, controlled. Dr. Qiuroz stopped tobramycin due to resistance to pseudomonas. [...] start fluticasone. He continues Hizentra infusions from [employer], which are going well with no SE. [...] 13-2023 Acid Fast Culture Negative Normal [facility] Comment on above: Result Comment: No a marshall fast bacilli isolated after 6 weeks. Performed By: #### A FB #### [facility] [address] [place], [place] [address] Dr. Nadeen Broderick Acid Fast Smear Negative Normal [facility] Comment on above: Performed By: #### A FB #### [facility] [address] [place], [place] [address] Dr. Nadeen Broderick [employer] Specimen Processing Concentration Normal [facility] Comment on above: Performed By: #### A FB #### [facility] [address] [place], [place] [address] Dr. Nadeen Broderick Chart Updateon 06-10-2022 Chart [...] scan of the chest ordered by his bowl topper Dr. Jacobson (in [facility]) I requested repeat CBC for 06/21/2022 but will defer if other overlapping blood tests or testing requested by PCP 1 1 Amended By: Rodriguez Quiroz; Jun 10 2022 11:29 AM ESTSignatures Electronically signed by : Rodriguez Quiroz MD; Jun 10 2022 11:31AM EST (Author) Normal [facility] FUNGAL CULTUREon 06-02-2022 Fungus (Mycology) Culture Final report Normal [facility] Comment on above: Performed By: #### C XFUN #### [facility] [address] [place] [address] [address] Nadeen Broderick Fungus Stain Final report Normal [facility] Comment on above: Performed By: #### C XFUN #### [facility] [address] [place] [address] [address] Nadeen Broderick Result 1 Comment Normal [facility] Comment on above: Result Comment: LAILA/ Calcofluor preparation: no fungus observed. Performed By: #### C XFUN #### [facility] [address] [place] [address] Dr. Nadeen Broderick Result Comment: No y east or mold isolated after 4 weeks. RESPIRATORY CF CULTURE,BACTE RIAL.on 05-21-2022 RESPIRATORY CF CULTURE,BACTERIAL. PATIENT: RASHAD MCNAIR LOCATION: [address] BILL#: [id number] : 36 AGE: SEX: M ORDERED BY: [...] DEPENDENT NS=NONSUSCEPTIBLE X=REPORTED IN ERROR ___ Normal [facility] Comment on above: Performed By: #### R ESCF #### [facility] [address] [place] [address] Chart Updateon 05-19-2022 Chart Update Chart Update [...] on 05/21/2022. Requisition sent to laboratory at [facility]. Patient will collect sputum today prior to starting levofloxacin 2. Levofloxacin 500 mg daily x10 days. Prescription sent electronically 3. Repeat CBC plus differential and basic metabolic panel on 05/31/2022. Order placed in computer. [facility] LAB phone [phone]) LAB FAX for [facility] ([phone]) LAB number [phone] 4. Phone follow-up in 1 week or earlier if necessary 5. 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 We will discuss results afterwards. We [...] Will send note to Dr. Jacobson at [facility] in [place], [place] FAX [phone] Signatures Electronically signed by : Rodriguez Quiroz MD; May 18 2022 12:35PM EST (Author) Normal [facility] Chart Updateon 05-10-2022 Chart Update Chart Update [...] 05/03/2022 as part of evaluation with new bowl topper. Patient reports new evaluation regarding possible new lesion/? Mass/? Infiltrate in the right lower lobe. Patient underwent bronchoscopy. No procedural or culture details known. Patient had no additional news and has follow-up with pulmonology in [facility] on 05/11/2022. NEW bowl topper, Dr. Rabia Jacobson Post-bronchoscopy leukocytosis I asked the patient to relay WBC count to Dr. Jacobson Would recommend repeat CBC plus differential in 1 week on 05/17/2022. Pulmonary could order at local hospital for patient convenience (patient goes to [facility] in [facility]) Patient will call and let me know if we need to order and send fax to [facility] if pulmonary unable to do so I faxed a copy of white blood cell count report to pulmonary at [phone] (Dr. Jacobson) Signatures Electronically signed by : Rodriguez Quiroz MD; May 10 2022 2:37PM EST (Author) Normal [facility] CBC AND DIFFERENTIALon 05-07 % AUTOMATED IMMATURE GRAN 1.8 % High 0.0 - 0.9 [facility] Comment on above: Result Comment: Acacia ture Granulocyte Count (IG) includes promyelocytes, myelocytes and metamyelocytes but does not include bands. Percent differential counts (%) should be interpreted in the context of the absolute cell counts (cells/L). Performed By: #### C BCDF #### [address] [id number] DIFFERENTIAL SEE MANUAL DIFF Normal [facility] Comment on above: Performed By: #### C BCDF #### [address] [id number] Erythrocyte distribution width (RBC) [Ratio] 14.6 % High 11.5 - 14.5 [facility] Comment on above: Performed By: #### C BCDF #### [address] [id number] Hematocrit (Bld) [Volume fraction] 34.7 % Low 41.0 - 52.0 [facility] Comment on above: Performed By: #### C BCDF #### [address] [id number] Hemoglobin (Bld) [Mass/Vol] 11.0 g/dL Low 13.5 - 17.5 [facility] Comment on above: Performed By: #### C BCDF #### [address] [id number] MCHC (RBC) [Mass/Vol] 31.7 g/dL Low 32.0 - 36.0 [facility] Comment on above: Performed By: #### C BCDF #### [address] [id number] MCV (RBC) [Entitic vol] 92 fL Normal 80 - 100 [facility] Comment on above: Performed By: #### C BCDF #### [address] [id number] Platelets (Bld) [#/Vol] 376 10*3/uL Normal 150 - 450 [facility] Comment on above: Performed By: #### C BCDF #### [address] [id number] RBC 3.77 x10E12/L Low 4.50 - 5.90 [facility] Comment on above: Performed By: #### C BCDF #### [address] [id number] WBC (Bld) [#/Vol] 34.0 10*3/uL High 4.4 - 11.3 [facility] Comment on above: Performed By: #### C BCDF #### [address] [id number] COMPREHENSIVE PANELon 2022 Albumin [Mass/Vol] 3.6 g/dL Normal 3.4 - 5.0 [facility] Comment on above: Performed By: #### C MP #### [address] [id number] ALP [Catalytic activity/Vol] 94 U/L Normal 33 - 136 [facility] Comment on above: Performed By: #### C MP #### [address] [id number] ALT [Catalytic activity/Vol] 12 U/L Normal 10 - 52 [facility] Comment on above: Result Comment: Cathy ents treated with Sulfasalazine may generate falsely decreased results for ALT. Performed By: #### C MP #### [address] [id number] Anion gap [Moles/Vol] 12 mmol/L Normal 10 - 20 [facility] Comment on above: Performed By: #### C MP #### [address] [id number] AST [Catalytic activity/Vol] 14 U/L Normal 9 - 39 [facility] Comment on above: Performed By: #### C MP #### [address] [id number] Bilirubin [Mass/Vol] 0.6 mg/dL Normal 0.0 - 1.2 [facility] Comment on above: Performed By: #### C MP #### [address] [id number] Calcium [Mass/Vol] 8.8 mg/dL Normal 8.6 - 10.3 [facility] Comment on above: Performed By: #### C MP #### [address] [id number] Chloride [Moles/Vol] 95 mmol/L Low 98 - 107 [facility] Comment on above: Performed By: #### C MP #### [address] [id number] Creatinine [Mass/Vol] 1.33 mg/dL High 0.50 - 1.30 [facility] Comment on above: Performed By: #### C MP #### [address] [id number] GFR/1.73 sq M.predicted among non-blacks MDRD (S/P/Bld) [Vol rate/Area] 53 mL/min/{1.73_m2} Abnormal >90 [facility] Comment on above: Result Comment: CALC ULATIONS OF ESTIMATED GFR ARE PERFORMED USING THE 2020 CKD-EPI STUDY REFIT EQUATION WITHOUT THE RACE VARIABLE FOR THE IDMS-TRACEABLE CREATININE METHODS. https://jasn.asnjournals.org/content/early//ASN.560283283 8 Performed By: #### C MP #### [address] [id number] Glucose [Mass/Vol] 72 mg/dL Low 74 - 99 [facility] Comment on above: Performed By: #### C MP #### [address] [id number] HCO3 (Bld) [Moles/Vol] 28 mmol/L Normal 21 - 32 [facility] Comment on above: Performed By: #### C MP #### [address] [id number] Potassium [Moles/Vol] 3.9 mmol/L Normal 3.5 - 5.3 [facility] Comment on above: Performed By: #### C MP #### [address] [id number] Protein [Mass/Vol] 6.1 g/dL Low 6.4 - 8.2 [facility] Comment on above: Performed By: #### C MP #### [address] [id number] Sodium [Moles/Vol] 131 mmol/L Low 136 - 145 [facility] [facility] Comment on above: Performed By: #### C MP #### [address] [id number] Urea nitrogen [Mass/Vol] 22 mg/dL Normal 6 - 23 [facility] Comment on above: Performed By: #### C MP #### [address] [id number] Complete Blood Count + Diffe rentialon 05-07-2022 [...] [Mass/Vol] 778 mg/dL Normal 700 - 1600 [facility] Comment on above: Result Comment: MONO CLONAL PROTEINS MAY CAUSE FALSELY LOW RESULTS IN THIS ASSAY. SERUM PROTEIN ELECTROPHORESIS SHOULD BE DONE THE FIRST TEST TO EVALUATE MONOCLONAL GAMMOPATHY. Performed By: #### I GG #### [facility] [address] [place] [address] Immunoglobulin G Level, Seru mon 05-07-2022 IgG [...] BASOPHIL 0.0 % Normal 0.0 - 2.0 [facility] Comment on above: Performed By: #### M DIFF #### [address] [id number] % EOSINOPHIL 0.0 % Normal 0.0 - 6.0 [facility] Comment on above: Performed By: #### M DIFF #### [address] [id number] % LYMPHOCYTE 16.0 % Normal 13.0 - 44.0 [facility] Comment on above: Performed By: #### M DIFF #### [address] [id number] % MONOCYTE 9.0 % Normal 2.0 - 10.0 [facility] Comment on above: Performed By: #### M DIFF #### [address] [id number] % SEG NEUTROPHIL 75.0 % Normal 40.0 - 80.0 [facility] Comment on above: Result Comment: Perc ent differential counts (%) should be interpreted in the context of the absolute cell counts (cells/L). Performed By: #### M DIFF #### [address] [id number] ANC 25.50 x10E9/L High 1.60 - 5.50 [facility] Comment on above: Performed By: #### M DIFF #### [address] [id number] BASOPHIL 0.00 x10E9/L Normal 0.00 - 0.10 [facility] Comment on above: Performed By: #### M DIFF #### [address] [id number] EOSINOPHIL 0.00 x10E9/L Normal 0.00 - 0.40 [facility] Comment on above: Performed By: #### M DIFF #### [facility] [address] [place], [place] [id number] LYMPHOCYTE 5.44 x10E9/L High 0.80 - 3.00 [facility] Comment on above: Performed By: #### M DIFF #### [facility] [address] [place], [place] [id number] MONOCYTE 3.06 x10E9/L High 0.05 - 0.80 [facility] Comment on above: Performed By: #### M DIFF #### [facility] [address] [place], [place] [id number] SEG NEUTROPHIL 25.50 x10E9/L High 1.60 - 5.00 [facility] Comment on above: Performed By: #### M DIFF #### [address] [id number] No Panel Informationon 05-07 25.50 {x10E9/L} above [...] RACE VARIABLE FOR THE IDMS-TRACEABLE CREATININE METHODS.https://jasn.asnjournals.org/content/early//ASN.2 650674259 Office Visiton 05-07-2022 Follow-up visit Diagnoses/Problems Bronchiectasis [...] to think mucus but will check with Circulation Representative first. I will review CT chest once I obtain results from his PCP. Follow up in 3 months or sooner if symptoms worsen prior. By signing my name below, I, Arabella Jun Snigh, attest that this documentation has been prepared [...] thin his mucus but will check with Circulation Representative first. [facility]. I will review CT chest once I [...] A had persistent Sx and saw a bowl topper at [facility], Dr. Rabia Jacobson, who performed bronchoscopy [...] RED CELL MORPHOLOGYon 2022 ACANTHOCYTES Few Normal [facility] Comment on above: Performed By: #### M ORP2 #### [address] [id number] LATIA CELLS Few Normal [facility] Comment on above: Performed By: #### M ORP2 #### [address] [id number] OVALOCYTES Few Normal [facility] Comment on above: Performed By: #### M ORP2 #### [address] [id number] RBC morphology finding Nom (Bld) See Below Normal [facility] Comment on above: Performed By: #### M ORP2 #### [address] [id number] TOBRAMYCINon 05-07-2022 TOBRAMYCIN 0.6 ug/mL Normal [facility] Comment on above: Result Comment: . Th erapeutic Ranges: Peak: 4.0-10.0 ug/mL . Trough: 0.0- 2.0 ug/mL Performed By: #### T OBRU #### [facility] [address] [place] [address] Tobramycin Level, Randomon 0 05-07-2022 Tobramycin [Mass/Vol] 0.6 ug/mL [facility]-Infectious Disease-Spec Immun Unit Work Phone: Comment on above: . Therapeutic Ranges : Peak: 4.0-10.0 ug/mL. Trough: 0.0- 2.0 ug/mL CULTURE OTHERon 05-03-2022 CULTURE OTHER Culture Observations : Susceptibility testing performed by [facility]. See report scanned in One [employer]. Isolate 1 Pseudomonas aeruginosa Light growth of Normal [facility] Comment on above: Performed By: #### O THCX #### [facility] [address] [place] [address] Dr. Nadeen Broderick CYTOLOGYon 05-03-2022 SENT TO REF LAB 05/03/2022 Normal [facility] Comment on above: Performed By: #### C YTO #### [facility] [address] [place] [address] Dr. Nadeen Broderick GRAM STAINon 05-03-2022 COMMENTS NO ORGANISMS OBSERVED Normal [facility] Comment on above: Performed By: #### G STAIN #### [facility] [address] [place] [address] Dr. Nadeen Broderick DIPHTHEROIDS Normal [facility] Comment on above: Performed By: #### G STAIN #### [facility] [address] [address] [address] Nadeen Broderick EPITHELIALS RARE Normal [facility] Comment on above: Performed By: #### G STAIN #### [facility] [address] [address] [address] Nadeen Broderick FUNGAL ELEMENTS Normal [facility] Comment on above: Performed By: #### G STAIN #### [facility] [address] [address] [address] Nadeen Broderick GRAM NEG BACILLI [facility] Comment on above: Performed By: #### G STAIN #### [facility] [address] [address] [address] Nadeen Broderick GRAM NEG DIPPLOCOCCI [facility] Comment on above: Performed By: #### G STAIN #### [facility] [address] [address] [address] Nadeen Broderick GRAM POS BACILLI [facility] Comment on above: Performed By: #### G STAIN #### [facility] [address] [address] [address] Nadeen Broderick GRAM POSITIVE COCCI Normal [facility] Comment on above: Performed By: #### G STAIN #### [facility] [address] [address] [address] Nadeen Broderick GRAM STAIN SOURCE R. LOWER LOBE LAVAGE Normal [facility] Comment on above: Performed By: #### G STAIN #### [facility] [address] [address] [address] Nadeen Broderick GS_DIPTH Normal [facility] Comment on above: Performed By: #### G STAIN #### [facility] [address] [address] [address] Nadeen Broderick WBC MODERATE Normal [facility] Comment on above: Performed By: #### G STAIN #### [facility] [address] [address] [address] Nadeen Broderick CBC W MANUAL DIFFon 04-30-19 23 ATYPICAL LYMPH # 1.30 103/ul Normal [facility] Comment on above: Performed By: #### C CAMILLE #### [facility] [address] [address] [address] Nadeen Broderick ATYPICAL LYMPH % 5 % Normal [facility] Comment on above: Performed By: #### C CAMILLE #### [facility] [address] [place] [address] Dr. Nadeen Broderick BAND # 0.0 103/ul Normal 0.0-0.[address] [facility] Comment on above: Performed By: #### C CAMILLE #### [facility] [address] [place] [address] Dr. Nadeen Broderick BAND % 0 % Normal 0-[address] [facility] Comment on above: Performed By: #### C CAMILLE #### [facility] [address] [place] [address] Dr. Nadeen Broderick BASOM # 0.00 103/ul Normal 0.00-0.[address] [facility] Comment on above: Performed By: #### C CAMILLE #### [facility] [address] [place] [address] Dr. Nadeen Broderick BASOM % 0.0 % Critically low 0.2-2.0 [facility] Comment on above: Performed By: #### C CAMILLE #### [facility] [address] [place] [address] Dr. Nadeen Broderick BLAST # Normal [facility] Comment on above: Performed By: #### C CAMILLE #### [facility] [address] [place] [address] Dr. Nadeen Broderick BLAST % Normal [facility] Comment on above: Performed By: #### C CAMILLE #### [facility] [address] [place] [address] Dr. Nadeen Broderick CORRECTED WBC Normal 4.0-11.0 [facility] Comment on above: Performed By: #### C CAMILLE #### [facility] [address] [place] [address] Dr. Nadeen Broderick EOS # 0.26 103/ul Normal 0.00-0.[address] [facility] Comment on above: Performed By: #### C CAMILLE #### [facility] [address] [address] [address] Nadeen Broderick EOS% 1.0 % Normal 0.9-7.[address] [facility] Comment on above: Performed By: #### C CAMILLE #### [facility] [address] [address] [address] Nadeen Broderick HCT 28.5 % Critically low 42.0-54.0 [facility] Comment on above: Performed By: #### C CAMILLE #### [facility] [address] [address] [address] Nadeen Broderick HGB 10.3 g/dl Critically low 14.0-18.0 [facility] Comment on above: Performed By: #### C CAMILLE #### [facility] [address] [address] [address] Nadeen Broderick LYMPHM # 4.96 103/ul Critically high 1.20-3.80 [facility] Comment on above: Performed By: #### C CAMILLE #### [facility] [address] [address] [address] Nadeen Broderick LYMPHM% 19.0 % Critically low 20.5-60.0 [facility] Comment on above: Performed By: #### C CAMILLE #### [facility] [address] [address] [address] Nadeen Broderick MCH 29.4 pg Normal 25.9-34.0 [facility] Comment on above: Performed By: #### C CAMILLE #### [facility] [address] [address] [address] Nadeen Broderick MCHC 36.1 g/dl Critically high 29.9-35.2 [facility] Comment on above: Performed By: #### C CAMILLE #### [facility] [address] [address] [address] Nadeen Broderick MCV 81.4 fL Normal 80.0-94.[address] [facility] Comment on above: Performed By: #### C CAMILLE #### [facility] [address] [place] [address] Dr. Nadeen Broderick METAMYELOCYTE # Normal [facility] Comment on above: Performed By: #### C CAMILLE #### [facility] [address] [place] [address] Dr. Nadeen Broderick METAMYELOCYTE % Normal [facility] Comment on above: Performed By: #### C CAMILLE #### [facility] [address] [place] [address] Dr. Nadeen Broderick MONOM# 2.61 103/ul Critically high 0.30-0.80 [facility] Comment on above: Performed By: #### C CAMILLE #### [facility] [address] [place] [address] Dr. Nadeen Broderick MONOM% 10.0 % Normal 1.7-12.[address] [facility] Comment on above: Performed By: #### C CAMILLE #### [facility] [address] [place] [address] Dr. Nadeen Broderick MPV 9.1 fL Critically low 9.5-13.5 [facility] Comment on above: Performed By: #### C CAMILLE #### [facility] [address] [place] [address] Dr. Nadeen Broderick MYELOCYTE # Normal [facility] Comment on above: Performed By: #### C CAMILLE #### [facility] [address] [place] [address] Dr. Nadeen Broderick MYELOCYTE % Normal [facility] Comment on above: Performed By: #### C CAMILLE #### [facility] [address] [place] [address] Dr. Nadeen Broderick NRBC Normal [facility] Comment on above: Performed By: #### C CAMILLE #### [facility] [address] [place] [address] Dr. Nadeen Broderick PLT 320 103/ul Normal 150-[address] [facility] Comment on above: Performed By: #### C CAMILLE #### [facility] [address] [place] [address] Dr. Nadeen Broderick RBC 3.50 106/ul Critically low 4.70-6.10 [facility] Comment on above: Performed By: #### C BCMAN #### [facility] [address] [address] [address] Nadeen Broderick RDW 13.3 % Normal 11.0-15.[address] [facility] Comment on above: Performed By: #### C BCMAN #### [facility] [address] [place], [place] [address] Dr. Nadeen Broderick SEG # 16.96 103/ul Critically high 1.40-6.50 [facility] Comment on above: Performed By: #### C BCMAN #### [facility] [address] [id number] Nadeen Broderick SEG % 65.0 % Normal 43.0-75.[address] [facility] Comment on above: Performed By: #### C BCMAN #### [facility] [address] [address] [address] Nadeen Broderick WBC 26.1 103/ul Critically high 4.0-11.0 [facility] Comment on above: Performed By: #### C BCMAN #### [facility] [address] [place], [place] [address] Dr. Nadeen Broderick Covid-19 PCR ([facility])on 04-12 SARS-CoV-2 (COVID-19) RNA PERLITA+probe Ql (Unsp spec) Not detected Normal NOT DETECTED [facility] Comment on above: Result Comment: This test is not yet approved or cleared by the [place] FDA. When there are no FDA-approved or cleared tests available, and other criteria are met, FDA can make tests available under an emergency access mechanism called an Emergency Use Authorization (EUA). The EUA for this test is supported by the [place] of Health and Human Service's (HHS's) declaration [...] SARS-CoV-2. Performed By: #### C VDTB #### [facility] [address] [place] [address] Dr. Nadeen Broderick PROF CHEM 8 (BAS METB)on Anion gap [Moles/Vol] 12.4 mmol/L Normal [facility] Comment on above: Performed By: #### B MP #### [facility] [address] [place] [address] Dr. Nadeen Broderick Calcium [Mass/Vol] 9.0 mg/dL Normal 8.5-10.1 [facility] Comment on above: Performed By: #### B MP #### [facility] [address] [place] [address] Dr. Nadeen Broderick Chloride [Moles/Vol] 97 mmol/L Critically low 98-[address] [facility] Comment on above: Performed By: #### B MP #### [facility] [address] [place] [address] Dr. Nadeen Broderick CO2 [Moles/Vol] 27.1 mmol/L Normal 21.0-32.0 [facility] Comment on above: Performed By: #### B MP #### [facility] [address] [place] [address] Dr. Nadeen Broderick Creatinine [Mass/Vol] 1.54 mg/dL Critically high 0.70-1.[address] [facility] Comment on above: Performed By: #### B MP #### [facility] [address] [place] [address] Dr. Nadeen Broderick EGFR-AF AFGHAN 53 mL/min/1.73m2 Critically low >=[address] [facility] Comment on above: Performed By: #### B MP #### [facility] [address] [place] [address] Dr. Nadeen Broderick EGFR-NON AF AFGHAN 43 mL/min/1.73m2 Critically low >=60 [facility] Comment on above: Performed By: #### B MP #### [facility] [address] [address] [address] Nadeen Broderick Glucose [Mass/Vol] 106 mg/dL Normal 74-106 [facility] Comment on above: Performed By: #### B MP #### [facility] [address] [address] [address] Nadeen Broderick Potassium [Moles/Vol] 3.5 mmol/L Normal 3.5-5.[address] [facility] Comment on above: Performed By: #### B MP #### [facility] [address] [address] [address] Nadeen Broderick Sodium [Moles/Vol] 133 mmol/L Critically low 136-145 [facility] Comment on above: Performed By: #### B MP #### [facility] [address] [place] [address] Dr. Nadeen Broderick Urea nitrogen [Mass/Vol] 26.0 mg/dL Critically high 7.0-18.[address] [facility] Comment on above: Performed By: #### B MP #### [facility] [address] [address] [address] Nadeen Broderick Urea nitrogen/Creatinin e [Mass ratio] 16.9 mg/mg Normal [facility] Comment on above: Performed By: #### B MP #### [facility] [address] [place] [address] Dr. Nadeen Broderick PROTIMEon 04-30-2022 INR Coag (PPP) [Relative time] 1.29 {INR} Normal [facility] Comment on above: Performed By: #### P TT, PT #### [facility] [address] [place] [address] Dr. Nadeen Broderick INR GUIDELINES SEE BELOW Normal [facility] Comment on above: Result Comment: DAVID RED INR: 2.0 - 3.0 CONDITIONS NOT LISTED BELOW 2.5 - 3.5 FOR PROSTHETIC HEART VALVE REPLACEMENT 2.5 - 3.5 RECURRENT THROMBOSIS Performed By: #### P TT, PT #### [facility] [address] [place] [address] Dr. Nadeen Broderick PT Coag (PPP) [Time] 13.5 s Critically high 9.0-11.6 [facility] Comment on above: Performed By: #### P TT, PT #### [facility] [address] [place], [place] [address] Dr. Nadeen Broderick PTTon 04-30-2022 aPTT Coag (Bld) [Time] 53.6 s Critically high 22.3-36.2 [facility] Comment on above: Performed By: #### P TT, PT #### [facility] [address] [place], [place] [address] Dr. Nadeen Broderick ID - Follow Upon [...] THEN 14 DAYS OFF - REFILLS CALL: [phone]; Therapy: [id number] to (Last Rx:09Jul2021) Requested for: [...] Atorvastatin Calcium 20 MG Oral Tablet; Therapy: (Recorded:[id number]) to Recorded Dispense: 0 Days ; #: Sufficient; Refill: 0; ZACH = N; Record; Last Upda (more content not included)... Normal [facility] COMPREHENSIVE METABOLIC PANE Frank 10-01-2021 Albumin [Mass/Vol] 4.0 g/dL Normal 3.6-5.1 [facility] Comment on above: Performed By: #### 5 1039, 1170, 04215 #### [facility] [address], [address] [place] [address] It Lead: Ozzie Clalejas MD Albumin/Globulin [Mass ratio] 1.8 {ratio} Normal 1.0-2.5 [facility] Comment on above: Performed By: #### 5 8984, 7600, 30740 #### [facility] of [address], [address] [place] [address] It Lead: Ozzie Callejas MD ALP [Catalytic activity/Vol] 94 U/L Normal 35-144 [facility] Comment on above: Performed By: #### 5 89, 7600, 86979 #### [facility] of [address], [address] [place] [address] It Lead: Ozzie Callejas MD ALT [Catalytic activity/Vol] 10 U/L Normal 9-46 [facility] Comment on above: Performed By: #### 5 8984, 0, 36409 #### [facility] of [address], [address] [place] [address] It Lead: Ozzie Callejas MD AST [Catalytic activity/Vol] 16 U/L Normal 10-35 [facility] Comment on above: Performed By: #### 5 8984, 0, 98735 #### [facility] of [place] [address] It Lead: Ozzie Callejas MD Bilirubin [Mass/Vol] 0.5 mg/dL Normal 0.2-1.2 [facility] Comment on above: Performed By: #### 5 8984, 0, 08857 #### [facility] of [place] [address] It Lead: Ozzie Callejas MD Calcium [Mass/Vol] 9.1 mg/dL Normal 8.6-10.3 [facility] Comment on above: Performed By: #### 5 8984, 7600, 80666 #### [facility] of [place] [address] It Lead: Ozzie Callejas MD Chloride [Moles/Vol] 101 mmol/L Normal 98-110 [facility] Comment on above: Performed By: #### 5 8984, 7600, 72504 #### [facility] [place] [address] It Lead: Ozzie Callejas MD CO2 [Moles/Vol] 26 mmol/L Normal 20-32 [facility] Comment on above: Performed By: #### 5 8984, 7600, 47549 #### [facility] [place] [address] It Lead: Ozzie Callejas MD Creatinine [Mass/Vol] 1.55 mg/dL High 0.70-1.11 [facility] Comment on above: Result Comment: For patients >49 years of age, the reference limit for Creatinine is approximately 13% higher for people identified as -British. Performed By: #### 5 8984, 7600, 25007 #### [facility] [address], [address] [place] [address] It Lead: Ozzie Callejas MD eGFR NON-AFR. AFGHAN 41 mL/min/1.73m2 Low > OR = 60 [facility] Comment on above: Performed By: #### 5 8984, 7600, 93641 #### [facility] [place] [address] It Lead: Ozzie Callejas MD GFR/1.73 sq M.predicted among blacks MDRD (S/P/Bld) [Vol rate/Area] 47 mL/min/{1.73_m2} Low > OR = 60 [facility] Comment on above: Performed By: #### 5 8984, 7600, 11980 #### [facility] [place] [address] It Lead: Ozzie Callejas MD Globulin (S) [Mass/Vol] 2.2 g/dL Normal 1.9-3.7 [facility] Comment on above: Performed By: #### 5 8984, 7600, 44041 #### [facility] [place] [address] It Lead: Ozzie Callejas MD Glucose [Mass/Vol] 92 mg/dL Normal 65-99 [facility] Comment on above: Result Comment: Fasting reference interval Performed By: #### 5 8984, 7600, 24935 #### [facility] of [address], [address] [place] [address] It Lead: Ozzie Callejas MD Potassium [Moles/Vol] 4.3 mmol/L Normal 3.5-5.3 [facility] Comment on above: Performed By: #### 5 8984, 7600, 68496 #### [facility] [address], [address] [place] [address] It Lead: Ozzie Callejas MD Protein [Mass/Vol] 6.2 g/dL Normal 6.1-8.1 [facility] Comment on above: Performed By: #### 5 8984, 0, 81390 #### [facility] [address], [address] [place] [address] It Lead: Ozzie Callejas MD Sodium [Moles/Vol] 137 mmol/L Normal 135-146 [facility] Comment on above: Performed By: #### 5 8984, 7600, 54592 #### [facility] [place] [address] It Lead: Ozzie Callejas MD Urea nitrogen [Mass/Vol] 19 mg/dL Normal 7-25 [facility] Comment on above: Performed By: #### 5 8984, 7600, 62385 #### [facility] of [place] [address] It Lead: Ozzie Callejas MD Urea nitrogen/Creatinin e [Mass ratio] 12 mg/mg Normal 6-22 [facility] Comment on above: Performed By: #### 5 8984, 7600, 31619 #### [facility] of [place] [address] It Lead: Ozzie Callejas MD LIPID PANEL, [facility] 09-10 Cholesterol [Mass/Vol] 114 mg/dL Normal <200 [facility] Comment on above: Order Comment: FASTI NG:YES FASTING: YES Performed By: #### 5 8984, 7600, 28797 #### [facility] [address], [address] [place] [address] It Lead: Ozzie Callejas MD Cholesterol in HDL [Mass/Vol] 47 mg/dL Normal > OR = 40 [facility] Comment on above: Order Comment: FASTI NG:YES FASTING: YES Performed By: #### 5 8984, 7600, 72083 #### [facility] [address], [address] [place] [address] It Lead: Ozzie Callejas MD Cholesterol in LDL [Mass/Vol] [...] Jay Jay SS et al. MARIBEL. 2013;310(19): 9446-3981 (http://[email or web address]/faq/OSJ495) Performed By: #### 5 8941, 7600, 23495 #### [facility] [address], [address] [place] [address] It Lead: Ozzie Callejas MD Cholesterol.total/ Cholesterol in HDL [Mass ratio] 2.4 {ratio} Normal <5.0 [facility] Comment on above: Order Comment: FASTI NG:YES FASTING: YES Performed By: #### 5 [id number], [id number], [id number] #### [facility] [address], [address] [place] [address] It Lead: Ozize Callejas MD NON HDL CHOLESTEROL 67 mg/dL (calc) Normal <130 [facility] Comment on above: Order Comment: FASTI NG:YES FASTING: YES Result Comment: For patients with diabetes plus 1 major ASCVD risk factor, treating to a non-HDL-C goal of <100 mg/dL (LDL-C of <70 mg/dL) is considered a therapeutic option. Performed By: #### 5 [id number], 7600, [id number] #### [facility] [address], [address] [place] [address] It Lead: Ozzie Callejas MD Triglyceride [Mass/Vol] 60 mg/dL Normal <150 [facility] Comment on above: Order Comment: FASTI NG:YES FASTING: YES Performed By: #### 5 [id number], [id number], [id number] #### [facility] [address], [address] [place] [address] It Lead: Ozzie Callejas MD TSH+FREE T4on 10-01-2021 Free T4 [Mass/Vol] 1.6 ng/dL Normal 0.8-1.8 [facility] Comment on above: Performed By: #### 5 [id number], 7600, [id number] #### [facility] [address], [address] [place] [address] It Lead: Ozzie Callejas MD TSH Qn 0.68 m[IU]/L Normal 0.40-4.50 [facility] Comment on above: Performed By: #### 5 [id number], 7600, [id number] #### [facility] [place] [address] It Lead: Ozzie Callejas MD Tobacco Screening.on 022 Fall risk assessment a) No falls within the last year [facility] [employer] Work Phone: Tobacco use status [facility] b) No [facility] [employer] Work Phone: BASIC METABOLIC PANELon 03-12 Calcium [Mass/Vol] 8.8 mg/dL Normal 8.6-10.3 [facility] Comment on above: Order Comment: FASTI NG:UNKNOWN FASTING: UNKNOWN Performed By: #### 1 [id number] #### [facility] of [address], [address] [place], [place] [address] It Lead: Ozzie Callejas MD Chloride [Moles/Vol] 99 mmol/L Normal 98-110 [facility] Comment on above: Order Comment: FASTI NG:UNKNOWN FASTING: UNKNOWN Performed By: #### 1 [id number] #### [facility] [address], [address] [place] [address] It Lead: Ozzie Callejas MD CO2 [Moles/Vol] 28 mmol/L Normal 20-32 [facility] Comment on above: Order Comment: FASTI NG:UNKNOWN FASTING: UNKNOWN Performed By: #### 1 [id number] #### [facility] [address], [address] [place] [address] It Lead: Ozzie Callejas MD Creatinine [Mass/Vol] 1.34 mg/dL High 0.70-1.11 [facility] Comment on above: Order Comment: FASTI NG:UNKNOWN FASTING: UNKNOWN Result Comment: For patients >49 years of age, the reference limit for Creatinine is approximately 13% higher for people identified as -British. Performed By: #### 1 [id number] #### [facility] [address], [address] [place] [address] It Lead: Ozzie Callejas MD eGFR NON-AFR. AFGHAN 49 mL/min/1.73m2 Low > OR = 60 [facility] Comment on above: Order Comment: FASTI NG:UNKNOWN FASTING: UNKNOWN Performed By: #### 1 [id number] #### [facility] [address], [address] [place] [address] It Lead: Ozzie Callejas MD GFR/1.73 sq M.predicted among blacks MDRD (S/P/Bld) [Vol rate/Area] 57 mL/min/{1.73_m2} Low > OR = 60 [facility] Comment on above: Order Comment: FASTI NG:UNKNOWN FASTING: UNKNOWN Performed By: #### 1 [id number] #### [facility] [address], [address] [place] [address] It Lead: Ozzie Callejas MD Glucose [Mass/Vol] 84 mg/dL Normal 65-99 [facility] Comment on above: Order Comment: FASTI NG:UNKNOWN FASTING: UNKNOWN Result Comment: Fasting reference interval Performed By: #### 1 [id number] #### [facility] [place] [address] It Lead: Ozzie Callejas MD Potassium [Moles/Vol] 4.3 mmol/L Normal 3.5-5.3 [facility] Comment on above: Order Comment: FASTI NG:UNKNOWN FASTING: UNKNOWN Performed By: #### 1 [id number] #### [facility] [place] [address] It Lead: Ozzie Callejas MD Sodium [Moles/Vol] 135 mmol/L Normal 135-146 [facility] Comment on above: Order Comment: FASTI NG:UNKNOWN FASTING: UNKNOWN Performed By: #### 1 [id number] #### [facility] [place] [address] It Lead: Ozzie Callejas MD Urea nitrogen [Mass/Vol] 20 mg/dL Normal 7-25 [facility] Comment on above: Order Comment: FASTI NG:UNKNOWN FASTING: UNKNOWN Performed By: #### 1 [id number] #### [facility] [place] [address] It Lead: Ozzie Callejas MD Urea nitrogen/Creatinin e [Mass ratio] 15 mg/mg Normal 6-22 [facility] Comment on above: Order Comment: FASTI NG:UNKNOWN FASTING: UNKNOWN Performed By: #### 1 [id number] #### [facility] [place] [address] It Lead: Ozzie Callejas MD Vital Signs Date Time Vital Sign Value Performing Clinician Jeffrey boyer 05-03-2024 13:09-0500 Body height 177.8 cm Blaise Marie DO Work Phone: [facility] 05-03-2024 13:09-0500 Body mass index (BMI) [Ratio] 20.63 kg/m2 Blaise Marie DO Work Phone: [facility] 05-03-2024 13:09-0500 Body temperature 98.1 [degF] Blaise Marie DO Work Phone: [employer] 05-03-2024 13:09-0500 Body weight 65.23 kg Blaise Marie DO Work Phone: [employer] 05-03-2024 13:09-0500 Diastolic blood pressure 60 mm[Hg] Bl[facility]ise [facility] DO [facility] 05-03-2024 13:09-0500 Heart rate 88 /min Blaise Marie DO [facility] 05-03-2024 13:09-0500 SaO2% (BldA) [Mass fraction] 94 % Blaise Marie DO [facility]: [facility] Comment on above: 2L/min 05-03-2024 13:09-0500 Systolic blood pressure 98 mm[Hg] Blaise Marie DO [facility] 05-02-2024 13:24-0500 Body height 180.3 cm Danis Self MD Work Phone: [facility] 05-02-2024 13:24-0500 Body mass index (BMI) [Ratio] 20.15 kg/m2 Danis Self MD Work Phone: [facility] 05-02-2024 13:24-0500 Body temperature 97.5 [degF] Danis Self MD Work Phone: [facility] 05-02-2024 13:24-0500 Body weight 65.5 kg Danis Self MD Work Phone: [facility] 05-02-2024 13:24-0500 Diastolic blood pressure 69 mm[Hg] Danis Self MD Work Phone: [facility] 05-02-2024 13:24-0500 Heart rate 85 /min Danis Self MD Work Phone: [facility] 05-02-2024 13:24-0500 Respiratory rate 18 /min Danis Self MD Work Phone: [facility] 05-02-2024 13:24-0500 SaO2% (BldA) [Mass fraction] 94 % Danis Self MD Work Phone: [facility] Comment on above: O2 @ 3L 05-02-2024 13:24-0500 Systolic blood pressure 121 mm[Hg] Danis Self MD Work Phone: [facility] 02-14-2024 15:05-0500 Body height 177.8 cm Blaise Ned BARNES Work Phone: [facility] [employer] 02-14-2024 15:05-0500 Body mass index (BMI) [Ratio] 20.75 kg/m2 Blaise Isaacs DO Work Phone: [facility] [employer] 02-14-2024 15:05-0500 Body temperature 97.5 [degF] Blaise Isaacs DO [facility] 02-14-2024 15:05-0500 Body weight 65.59 kg Blaise Isaacs DO [facility] 02-14-2024 15:05-0500 Diastolic blood pressure 52 mm[Hg] Blaise Ponchos DO Work [facility]: [facility] 02-14-2024 15:05-0500 Heart rate 83 /min Blaise Ramonahas DO [facility] 02-14-2024 15:05-0500 Respiratory rate 20 /min Blaise Ponchos DO Work Phone: [facility] 02-14-2024 15:05-0500 SaO2% (BldA) [Mass fraction] 93 % Blaise Marie DO [facility] 02-14-2024 15:05-0500 Systolic blood pressure 102 mm[Hg] Blaise Marie DO Work Phone: [facility] 02-01-2024 16:16-0400 Body height 177.8 cm Blaise Marie DO Work Phone: [facility] 02-01-2024 16:16-0400 Body mass index (BMI) [Ratio] 20.75 kg/m2 Blaise Marie DO Work Phone: [facility] 02-01-2024 16:16-0400 Body temperature 98.01 [degF] Blaise Marie DO Work Phone: [facility] 02-01-2024 16:16-0400 Body weight 65.59 kg Blaise Marie DO Work Phone: [facility] 02-01-2024 16:16-0400 Diastolic blood pressure 62 mm[Hg] Blaise Marie DO Work Phone: [facility] 02-01-2024 16:16-0400 Heart rate 74 /min Blaise Marie DO Work Phone: [facility] 02-01-2024 16:16-0400 SaO2% (BldA) [Mass fraction] 99 % Blaise Marie DO Work Phone: [facility] 02-01-2024 16:16-0400 Systolic blood pressure 110 mm[Hg] Blaise Marie DO Work Phone: [facility] 02-01-2024 12:53-0400 Body height 180.3 cm Danis Self MD Work Phone: [facility] 02-01-2024 12:53-0400 Body mass index (BMI) [Ratio] 20.24 kg/m2 Danis Self MD Work Phone: [facility] 02-01-2024 12:53-0400 Body temperature 97.3 [degF] Danis Self MD Work Phone: [facility] 02-01-2024 12:53-0400 Body weight 65.8 kg Danis Self MD Work Phone: [facility] 02-01-2024 12:53-0400 Diastolic blood pressure 61 mm[Hg] Danis Self MD Work Phone: [facility] 02-01-2024 12:53-0400 Heart rate 78 /min Danis Self MD Work Phone: [facility] 02-01-2024 12:53-0400 Respiratory rate 16 /min Danis Self MD Work Phone: [facility] 02-01-2024 12:53-0400 SaO2% (BldA) [Mass fraction] 96 % Danis Self MD Work Phone: [facility] Comment on above: O2 @ 2L 02-01-2024 12:53-0400 Systolic blood pressure 97 mm[Hg] Danis Self MD Work Phone: [facility] 12-29-2023 12:42-0400 Body height 177.8 cm Blaise Marie DO Work Phone: [facility] 12-29-2023 12:42-0400 Body mass index (BMI) [Ratio] 21.29 kg/m2 Blaise Marie DO Work Phone: [facility] 12-29-2023 12:42-0400 Body temperature 98.01 [degF] Blaise Marie DO Work Phone: [facility] 12-29-2023 12:42-0400 Body weight 67.31 kg Blaise Marie DO Work Phone: [facility] 12-29-2023 12:42-0400 Diastolic blood pressure 50 mm[Hg] Blaise Marie DO Work Phone: [facility] 12-29-2023 12:42-0400 Heart rate 73 /min Blaise Marie DO Work Phone: [facility] 12-29-2023 12:42-0400 SaO2% (BldA) [Mass fraction] 96 % Blaise Marie DO Work Phone: [facility] 12-29-2023 12:42-0400 Systolic blood pressure 110 mm[Hg] Blaise Marie DO Work Phone: [facility] 10-25-2023 10:10-0400 Body height 177.8 cm Alexander Lozano MD Work Phone: [facility] 10-25-2023 10:10-0400 Body mass index (BMI) [Ratio] 20.95 kg/m2 Alexander Lozano MD Work Phone: [facility] 10-25-2023 10:10-0400 Body weight 66.22 kg Alexander Lozano MD Work Phone: [facility] 10-25-2023 10:10-0400 Diastolic blood pressure 42 mm[Hg] Alexander Lozano MD Work Phone: [facility] 10-25-2023 10:10-0400 Heart rate 66 /min Alexander Lozano MD Work Phone: [facility] 10-25-2023 10:10-0400 Systolic blood pressure 80 mm[Hg] Alexander Lozano MD Work Phone: [facility] 09-07-2023 14:45-0400 Diastolic blood pressure 56 mm[Hg] Blaise Marie DO Work Phone: [facility] 09-07-2023 14:45-0400 Systolic blood pressure 88 mm[Hg] Blaise Marie DO Work Phone: [facility] 09-07-2023 13:15-0400 Body height 177.8 cm Blaise Marie DO Work Phone: [facility] 09-07-2023 13:15-0400 Body mass index (BMI) [Ratio] 21.21 kg/m2 Blaise Marie DO Work Phone: [facility] 09-07-2023 13:15-0400 Body temperature 97.3 [degF] Blaise Marie DO Work Phone: [facility] 09-07-2023 13:15-0400 Body weight 67.04 kg Blaise Marie DO Work Phone: [facility] 09-07-2023 13:15-0400 Heart rate 75 /min Blaise Marie DO Work Phone: [facility] 09-07-2023 13:15-0400 Respiratory rate 18 /min Blaise Marie DO Work Phone: [facility] 09-07-2023 13:15-0400 SaO2% (BldA) [Mass fraction] 93 % Blaise Marie DO Work Phone: [facility] 08-09-2023 11:27-0400 Body height 177.8 cm Shani Burt MD Work Phone: [facility] 08-09-2023 11:27-0400 Body mass index (BMI) [Ratio] 21.09 kg/m2 Shani Burt MD Work Phone: [facility] 08-09-2023 11:27-0400 Body weight 66.68 kg Shani Burt MD Work Phone: [facility] 08-09-2023 11:27-0400 Diastolic blood pressure 56 mm[Hg] Shani Burt MD Work Phone: [facility] 08-09-2023 11:27-0400 Heart rate 87 /min Shani Burt MD Work Phone: [facility] 08-09-2023 11:27-0400 Systolic blood pressure 85 mm[Hg] Shani Burt MD Work Phone: [facility] 07-19-2023 13:04-0400 Body height 177.8 cm Blaise Greenehas DO Work Phone: [facility] 07-19-2023 13:04-0400 Body mass index (BMI) [Ratio] 21.14 kg/m2 Blaise Yuhas DO Work Phone: [facility] 07-19-2023 13:04-0400 Body weight 66.81 kg Blaise Yuhas DO Work Phone: [facility] 07-19-2023 13:04-0400 Diastolic blood pressure 58 mm[Hg] Blaise Yuhas DO Work Phone: [facility] 07-19-2023 13:04-0400 Systolic blood pressure 98 mm[Hg] Blaise Yuhas DO Work Phone: [facility] 05-24-2023 12:05-0500 Diastolic blood pressure 68 mm[Hg] Blaise Yuhas DO Work Phone: [facility] 05-24-2023 12:05-0500 Systolic blood pressure 98 mm[Hg] Blaise Greenehas DO Work Phone: [facility] 05-24-2023 11:30-0500 Body height 180.3 cm Blaise Greenehas DO Work Phone: [facility] 05-24-2023 11:30-0500 Body mass index (BMI) [Ratio] 20.35 kg/m2 Blaise Yuhas DO Work Phone: [facility] 05-24-2023 11:30-0500 Body temperature 97.7 [degF] Blaise Yuhas DO Work Phone: [facility] 05-24-2023 11:30-0500 Body weight 66.18 kg Blaise Greenehas DO Work Phone: [facility] 05-24-2023 11:30-0500 Heart rate 87 /min Blaise Greenehas DO Work Phone: [facility] 05-24-2023 11:30-0500 SaO2% (BldA) [Mass fraction] 93 % Blaise Marie DO Work Phone: [facility] Comment on above: pt is on o2 at home , hands are cold 04-05-2023 10:46-0500 Body height 180.3 cm Blaise Marie DO Work Phone: [facility] 04-05-2023 10:46-0500 Body mass index (BMI) [Ratio] 20.42 kg/m2 Blaise Marie DO Work Phone: [facility] 04-05-2023 10:46-0500 Body temperature 97.7 [degF] Blaise Marie DO Work Phone: [facility] 04-05-2023 10:46-0500 Body weight 66.41 kg Blaise Marie DO Work Phone: [facility] 04-05-2023 10:46-0500 Diastolic blood pressure 52 mm[Hg] Blaise Marie DO Work Phone: [facility] [employer] 04-05-2023 10:46-0500 Heart rate 73 /min Blaise Marie DO Work Phone: [facility] 04-05-2023 10:46-0500 SaO2% (BldA) [Mass fraction] 95 % Blaise Marie DO Work Phone: [facility] 04-05-2023 10:46-0500 Systolic blood pressure 110 mm[Hg] Blaise Marie DO Work Phone: [facility] 02-02-2023 15:26-0400 Body height 180.3 cm Tristin Campbell MD Work Phone: [facility] 02-02-2023 15:26-0400 Body temperature 97.3 [degF] Tristin Campbell MD Work Phone: [facility] 02-02-2023 15:26-0400 Body weight 68.77 kg Tristin Campbell MD Work Phone: [facility] 02-02-2023 15:26-0400 Diastolic blood pressure 67 mm[Hg] Tristin Campbell MD Work Phone: [facility] 02-02-2023 15:26-0400 Heart rate 73 /min Tristin Campbell MD Work Phone: [facility] 02-02-2023 15:26-0400 Respiratory rate 18 /min Tristin Campbell MD Work Phone: [facility] 02-02-2023 15:26-0400 SaO2% (BldA) [Mass fraction] 97 % Tristin Campbell MD Work Phone: [facility] 02-02-2023 15:26-0400 Systolic blood pressure 119 mm[Hg] Tristin Campbell MD Work Phone: [facility] 11-12-2022 11:19-0400 Body mass index (BMI) [Ratio] 20.73 kg/m2 Blaise Mraie Work Phone: [facility] [facility] Work Phone: 11-12-2022 11:19-0400 Body surface area Derived from formula 1.86 m2 Blaise Marie Work Phone: TV-Xdawvcelri-[address] [facility] Work Phone: 11-12-2022 11:19-0400 Body weight 67.4 kg Blaise Marie Work Phone: IF-Yvijsqdkkh-[address] [place] [facility] Work Phone: 11-12-2022 10:42-0400 Diastolic blood pressure 64 mm[Hg] Blaise Marie Work Phone: NB-Idaykhlhvw-[address] [place] [facility] Work Phone: 11-12-2022 10:42-0400 Heart rate 89 /min Blaise Marie Work Phone: WW-Jsqiamhtji-[address] [place] [facility] Work Phone: 11-12-2022 10:42-0400 Systolic blood pressure 98 mm[Hg] Blaise Marie Work Phone: DS-Niidzkfyoc[facility] [place] [facility] Work Phone: 05-07-2022 10:39-0500 Body mass index (BMI) [Ratio] 20.92 kg/m2 Blaise Marie Work Phone: CX-Fxzsvdmxpb-[place] [place] [address] DO Work Phone: 05-07-2022 10:39-0500 Body surface area Derived from formula 1.87 m2 Blaise Greeneiva Work Phone: DT-Zqvrizzcjc-[address] [place] [address] DO Work Phone: 05-07-2022 10:39-0500 Body weight 68.04 kg Blaise Marie Work Phone: QW-Keddhaypmx-[place] [place] [address] DO Work Phone: 05-07-2022 10:39-0500 Diastolic blood pressure 61 mm[Hg] Blaise Marie Work Phone: KJ-Ecwqfxjgeq-Whk [place] [address] DO Work Phone: 05-07-2022 10:39-0500 Heart rate 90 /min Blaise Isaacrachael Work Phone: TD-Nstczzzzao-[address] [place] [address] DO Work Phone: 05-07-2022 10:39-0500 SaO2% (BldA) [Mass fraction] 98 % Blaise Beck Ned Work Phone: LH-Sggdckcgra-Egk [address] [address] DO Work Phone: 05-07-2022 10:39-0500 Systolic blood pressure 112 mm[Hg] Blaise Marie Work Phone: DM-Ympffwcwbw-Qkk [address] [address] DO Work Phone: 09-25-2021 10:13-0400 Body mass index (BMI) [Ratio] 22.32 kg/m2 Blaise Marie Work Phone: JF-Gykkqplgnj-Ahx [address] [address] DO Work Phone: 09-25-2021 10:13-0400 Body surface area Derived from formula 1.92 m2 Blaise Greeneiva Work Phone: BU-Nybjxfobai-Rcv [address] [address] DO Work Phone: 09-25-2021 10:13-0400 Body weight 72.57 kg Blaise Beck Ned Work Phone: WY-Wgtdjyhfke-Yrg [place] [address] DO Work Phone: 09-25-2021 10:13-0400 Diastolic blood pressure 75 mm[Hg] Blaise Beck Ned Work Phone: HT-Iybkewggrg-Yzx [address] [address] DO Work Phone: 09-25-2021 10:13-0400 Heart rate 85 /min Blaise Greeneiva Work Phone: VU-Vhjcfaluua-Udn [place] [address] DO Work Phone: 09-25-2021 10:13-0400 SaO2% (BldA) [Mass fraction] 96 % Blaise Greeneiva Work Phone: PO-Yrwjelkqfk-Dbg [place] [address] DO Work Phone: 09-25-2021 10:13-0400 Systolic blood pressure 106 mm[Hg] Blaise Beck Ned Work Phone: OL-Qwbbypnlxb-Ed[address] [place] [address] DO Work Phone: 06-12-2021 09:38-0500 0 1 Blaise Beck Ned Work Phone: [facility] Bo Work Phone: Comment on above: [employer] 11-14-2020 10:23-0400 Body height 180.34 cm Blaise Marie Work Phone: WU-Fvcjwhjbtp-Xmd [place] [address] DO Work Phone: 11-14-2020 10:23-0400 Body mass index (BMI) [Ratio] 22.87 kg/m2 Blaise Marie Work Phone: SV-Atjkhnxkkv-Ojh [place] [address] DO Work Phone: 11-14-2020 10:23-0400 Body surface area Derived from formula 1.94 m2 Blaise Marie Work Phone: GU-Xbfukpihwd-Sgn [place] [address] DO Work Phone: 11-14-2020 10:23-0400 Body weight 74.39 kg Blaise Marie Work Phone: ZY-Dwghotpqlw-Lzi [place] [address] DO Work Phone: 11-14-2020 10:23-0400 Diastolic blood pressure 74 mm[Hg] Blaise Marie Work Phone: TX-Asfmcrtxat-Qty [place] [address] DO Work Phone: 11-14-2020 10:23-0400 Systolic blood pressure 116 mm[Hg] Blaise Marie Work Phone: RB-Eqvijdpjwx-Nkg [place] [address] DO Work Phone: 12-22-2018 13:54-0400 BMI (Body Mass Index) 21.2 kg/m2 Rodriguez Quiroz UU-Nncqgkk-Myvmvy [address] 2470 Work Phone: 12-22-2018 13:54-0400 Body weight 68.95 kg Rodriguez Quiroz RB-Caoomvq-Ijuqw a [address]70 Work Phone: 12-22-2018 13:54-0400 BP Diastolic 72 mm[Hg] Rodriguez Quiroz IW-Xidpxzc-Iqhtd a [address] 2470 Work Phone: 12-22-2018 13:54-0400 BP Systolic 111 mm[Hg] Rodriguez Quiroz QF-Ubhndlk-Panop a [address] 2470 Work Phone: 12-22-2018 13:54-0400 BSA (Body Surface Area) 1.88 m2 Rodriguez rayo 2470 Work Phone: 12-22-2018 13:54-0400 Height 180.34 cm Rodriguez rayo 0800 Work Phone: 12-22-2018 13:54-0400 Pulse (Heart Rate) 73 /min Rodriguez rayo 2474 Work Phone: Encounters Encounter Date Encounter Type Care Provider Facility Start: 05-11-2024 End: 05-11-2024 Phys/qhp telephone evaluation 21-30 min Rodriguez Quiroz MD Work Phone: [facility] Comment on above: Pneumonia due to Pse udomonas species, unspecified laterality, unspecified part of lung (Multi) (Primary Dx); Serratia marcescens infection; Bronchiectasis without complication (Multi) Start: 05-11-2024 End: 05-11-2024 ambulatory [facility] Start: 05-03-2024 End: 05-03-2024 Telephone encounter Danis Self MD Work Phone: Hematology/Oncology Comment on above: Results; OTC Iron/Vi t C recommendation Start: 05-03-2024 End: 05-03-2024 Office outpatient visit 25 minutes Blaise Marie DO Work Phone: [facility] Comment on above: Hypotension due to h ypovolemia (Primary Dx); Chronic myeloproliferative disease ([facility]-HCC); Pulmonary hypertension ([facility]-HCC); 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); Chronic obstructive pulmonary disease, unspecified COPD type ([facility]-HCC); Bronchiectasis (CMS-HCC); Paroxysmal atrial fibrillation ([facility]-HCC); Chronic renal impairment, stage 3a ([facility]-HCC) Start: 05-03-2024 End: 05-03-2024 ambulatory [facility] Start: 05-02-2024 End: 05-02-2024 Office outpatient visit 15 minutes Danis Self MD Work Phone: Hematology/Oncology Comment on above: CLL (chronic lymphoc ytic leukemia) (HCC) (Primary Dx); Other specified diseases of blood and blood-forming organs Start: 05-02-2024 End: 05-02-2024 ambulatory BLAISE MARIE Facility:[facility] Start: 04-27-2024 End: 04-27-2024 ambulatory [facility] Start: 04-26-2024 End: 04-26-2024 ambulatory [facility] Start: 04-22-2024 End: 04-22-2024 Refill Blaise Marie DO Work Phone: [facility] Comment on above: Gastro-esophageal re flux disease without esophagitis Start: 03-05-2024 End: 03-05-2024 Office outpatient visit 25 minutes Sweetie Pop MD Work Phone: [facility] [place][note 2] Comment on above: CVID (common variabl e immunodeficiency) (Primary Dx) Start: 03-05-2024 End: 03-05-2024 ambulatory [facility] Start: 02-28-2024 End: 02-28-2024 ambulatory [facility] Start: 02-27-2024 End: 02-27-2024 ambulatory [facility] Start: 02-16-2024 End: 02-16-2024 Orders Only Blaise Marie DO Work Phone: [facility] Comment on above: Urinary tract infect ion due to Enterococcus (Primary Dx) Start: 02-14-2024 End: 02-14-2024 [facility] Start: 02-14-2024 End: 02-14-2024 Office outpatient visit 10 minutes Blaise Marie DO Work Phone: [facility] Comment on above: Lower urinary tract symptoms (LUTS) (Primary Dx) Start: 02-14-2024 End: 02-14-2024 ambulatory [facility] Start: 02-13-2024 End: 02-14-2024 Telephone encounter Silvana Reyna [facility] Start: 02-01-2024 End: 02-01-2024 ambulatory [facility] Start: 02-01-2024 End: 02-01-2024 Office outpatient visit 15 minutes Blaise Marie DO Work Phone: [facility] Comment [...] Start: 02-01-2024 End: 02-01-2024 ambulatory DANIS SELF Facility:[facility] Start: 01-26-2024 End: 01-26-2024 ambulatory [facility] Start: 12-29-2023 End: 12-29-2023 ambulatory [facility] Start: 12-29-2023 End: 12-29-2023 Transitional care manage srvc 14 day discharge Blaise Marie DO Work Phone: [facility] Comment on above: Orthostatic dizzines s (Primary Dx); Pulmonary hypertension (CMS-HCC); Bronchiectasis ([facility]-HCC); Chronic obstructive pulmonary disease, unspecified COPD type ([facility]-HCC) Start: 12-28-2023 End: 12-29-2023 Telephone encounter Blaise Marie DO Work Phone: [facility] Start: 12-25-2023 End: 12-25-2023 Refill Blaise Marie DO Work Phone: [facility] Comment on above: Mixed hyperlipidemia ; Other specified hypothyroidism Start: 12-19-2023 End: 12-19-2023 Telephone encounter Idalia Dominguez RN [facility] Comment on above: Transition Of Care Start: 12-15-2023 End: 12-18-2023 Emergency department patient visit JES BARRAGAN [facility] Start: 12-15-2023 End: 12-17-2023 Evaluation and management of inpatient [facility] Ebony MARIE [facility] Start: 12-15-2023 End: 12-15-[address] [facility] Work Phone: Start: 12-15-2023 End: 12-15-2023 Patient encounter procedure [facility] Work Phone: Start: 11-21-2023 End: 11-21-2023 Refill Blaise [facility] DO [facility] Comment on above: Chronic obstructive pulmonary disease, unspecified COPD type (CMS-HCC) Start: 11-11-2023 End: 11-11-2023 ambulatory [facility] Start: 10-31-2023 End: 10-31-2023 ambulatory [facility] Start: 10-25-2023 End: 10-25-2023 Office outpatient visit 15 minutes Alexander Lozano MD Work Phone: [facility] Comment on above: Paroxysmal atrial fi brillation (CMS-HCC) (Primary Dx); Mixed hyperlipidemia Start: 10-25-2023 End: 10-25-2023 ambulatory [facility] Start: 10-24-2023 End: 10-24-2023 Telephone encounter Rosa Gramajo [facility] Start: 10-13-2023 End: 10-13-2023 Refill Blaise Marie DO Work Phone: [facility] Comment on above: Gastro-esophageal re flux disease without esophagitis Start: 10-10-2023 End: 10-12-2023 Telephone encounter Blaise Marie DO Work Phone: [facility] Start: 09-07-2023 End: 09-07-2023 ambulatory [facility] Start: 09-07-2023 End: 09-07-2023 ambulatory [facility] Start: 09-07-2023 End: 09-07-2023 Office outpatient visit 25 minutes Blaise Marie DO Work Phone: [facility] Comment on above: Chronic obstructive pulmonary disease, unspecified COPD type (CMS-HCC) (Primary Dx); Bronchiectasis ([facility]-HCC); Chronic lymphocytic leukemia of B-cell type not having achieved remission ([facility]-HCC); Hyponatremia; Hypotension due to hypovolemia Start: 08-24-2023 End: 08-26-2023 Refill Trenton Pepper MD Work Phone: [facility] Comment on above: Med Refill Start: 08-09-2023 End: 08-09-2023 Office outpatient visit 15 minutes Shani Burt MD Work Phone: [facility] Comment on above: Benign non-nodular p rostatic hyperplasia with lower urinary tract symptoms (Primary Dx) Start: 08-09-2023 End: 08-09-2023 ambulatory SHANI BURT [facility] Start: 07-19-2023 End: 07-19-2023 ambulatory [facility] Start: 07-19-2023 End: 07-19-2023 Patient encounter procedure Blaise Marie DO Work Phone: [facility] Comment on above: Encounter for subseq uent annual wellness visit (AWV) in Medicare patient (Primary Dx) Start: 07-04-2023 End: 07-04-2023 ambulatory [facility] Start: 07-01-2023 Refill Blaise Chadwick Work Phone: [facility] Comment on above: Mixed hyperlipidemia Start: 06-16-2023 Refill Blaise Chadwick Work Phone: [facility] Comment on above: Other specified hypo thyroidism Start: 06-14-2023 End: 06-14-2023 ambulatory [facility] Start: 06-14-2023 End: 06-14-2023 Office outpatient visit 15 minutes Sweetie Pop MD Work Phone: [facility] [place][note 2] Comment on above: CVID (common variabl e immunodeficiency) (CMS/HCC) (Primary Dx) Start: 06-09-2023 End: 06-09-2023 ambulatory [facility] Start: 06-07-2023 End: 06-07-2023 ambulatory [facility] Start: 05-24-2023 End: 05-24-2023 ambulatory [facility] Start: 05-24-2023 End: 05-24-2023 Office outpatient visit 25 minutes Blaise Marie DO Work Phone: [facility] Comment on above: Chronic obstructive pulmonary disease, unspecified COPD type (CMS-HCC) (Primary Dx); Mixed hyperlipidemia; 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); Chronic lymphocytic leukemia of B-cell type not having achieved remission ([facility]-HCC); Bronchiectasis; Paroxysmal atrial fibrillation (CMS-HCC); Chronic renal impairment, stage 3a (CMS-HCC) Start: 05-24-2023 End: 05-24-2023 ambulatory [facility] Start: 05-13-2023 End: 05-13-2023 ambulatory [facility] Start: 05-05-2023 End: 05-05-2023 ambulatory [facility] Start: 04-29-2023 Refill Blaise Chadwick Work Phone: [facility] Comment on above: Gastro-esophageal re flux disease without esophagitis Start: 04-29-2023 End: 04-29-2023 Phys/qhp telephone evaluation 21-30 min Rodriguez Quiroz MD Work Phone: [facility] [place] Comment on above: Pneumonia due to Pse udomonas species, unspecified laterality, unspecified part of lung (CMS/HCC) (Primary Dx); Bronchiectasis without complication (CMS/HCC) Start: 04-17-2023 Refill Blaise Chadwick Work Phone: [facility] Comment on above: Bronchiectasis Start: 04-05-2023 End: 04-05-2023 Office outpatient visit 25 minutes Blaise Marie DO Work Phone: [facility] Comment on above: Acute exacerbation o f bronchiectasis (CMS-HCC) (Primary Dx); Chronic lymphocytic leukemia of B-cell type not having achieved remission (CMS-HCC) Start: 02-11-2023 End: 02-11-2023 Office outpatient visit 40 minutes Sweetie Pop MD Work Phone: [facility] [place][note 2] Comment on above: Bronchiectasis witho ut complication [...] sit 25 minutes Blaise Marie Work Phone: GQ-Bvecyfwpci-Zxavz juan 2100 DO Work Phone: Start: 11-12-2022 Patient encounter procedure Clary kay Ebony Isaacrachael Work Phone: US-Rmmomdrbcd-Ztvuz elisabet Fermin A Work Phone: Start: 11-12-[address] Ramonaiva Facility:[id number] Start: 08-06-2022 Office outpatient vi sit 25 minutes Blaise Marie Work Phone: WZ-Pycoxcvarv-Nhwqe juan 2100 DO Work Phone: Start: 08-06-2022 Patient encounter procedure Clary Beck Ponchorachael Work Phone: UH-Tleldkfges-Rtvjb juan 2100 DO Work Phone: Start: 08-06-2022 [...] sit 40 minutes Blaise Marie Work Phone: WO-Ihwrhbglde-Fwcdi a Work Phone: Start: 05-07-2022 Patient encounter procedure Clary Marie Work Phone: RE-Rztktrrjkt-Qxdpb ake 5225 DO Work Phone: Start: 05-07-[address] Blaise Marie Facility:[id number] Start: 05-05-2022 Encounter for prepro cedural laboratory examination [facility] . [facility] Start: 05-03-2022 End: 05-03-2022 ambulatory RABIABENJAMIN JACOBSON . Facility:H1 Start: 04-30-2022 End: 05-01-2022 ambulatory R[facility]IA [facility] . Facility:H1 Start: 04-30-2022 End: 05-01-2022 Encounter for preprocedural laboratory examination R[facility]IA [facility] . Facility:H1 Start: 03-19-[address] Blaise Marie Facility:[id number] Start: 03-19-2022 Phys/qhp telephone evaluation 21-30 min Blaise Marie Work Phone: [facility] Work Phone: Start: 10-09-2021 Phys/qhp telephone evaluation 21-30 min Blaise Marie Work Phone: [facility] [place] Work Phone: Start: 09-25-2021 Office outpatient vi sit 25 minutes Blaise Marie Work Phone: VR-Ykpynfkxpc-Qzlsw ake 2100 DO Work Phone: Start: 07-09-2021 AUDIT Blaise Marie Work Phone: [facility] Bo Work Phone: Start: 06-12-2021 Phys/qhp telephone evaluation 21-30 min Blaise Marie Work Phone: [facility] [place] Work Phone: Start: 05-15-2021 Office outpatient vi sit 15 minutes Blaise Marie Work Phone: GZ-Akksegcpcq-Nxlop juan 2100 DO Work Phone: Start: 01-16-2021 Phys/qhp telephone evaluation 21-30 min Blaise Marie Work Phone: [facility] Work Phone: Start: 12-17-2020 Rx Change Blaise Marie Work Phone: [facility] Work Phone: Start: 11-14-2020 Office outpatient vi sit 25 minutes Blaise Marie Work Phone: SE-Louehdketg-Mhsgz juan 2100 DO Work Phone: Start: 12-22-2018 Patient encounter procedure Rodriguez anderson OV-Knikvqg-Jqmcwnuv 2470 Work Phone: Start: 06-16-2018 Patient encounter procedure Rodriguez anderson ZX-Ibfycqcued-Ztmsg a Work Phone: Start: 12-23-2017 Patient encounter procedure Rodriguez anderson WN-Sfwvhwkppy-Edree a Work Phone: Start: 08-16-2017 Patient encounter procedure Rodriguez anderson AZ-Vazzbxomuf-Rmchp a Work Phone: Start: 06-17-2017 Patient encounter procedure Rodriguez anderson IT-Gtnlrbnmgx-Bydcc a Work Phone: Start: 06-07-2017 Patient encounter procedure Rodriguez anderson RB-Awdehfesfn-Akjsd a Work Phone: Start: 04-29-2017 Patient encounter procedure Rodriguez anderson XK-Ftthyeaxbf-Sjpgh a Work Phone: Start: 02-15-2017 Patient encounter procedure Rodriguez anderson AF-Qpxosydgao-Ntsyz a Work Phone: Procedures Date Procedure Procedure [...] Td Vaccines (2 - Td or Tdap) [facility] Start: 01-21-2033 DTaP/Tdap/Td Vaccine s (2 - Td or Tdap) DTaP/Tdap/Td Vaccines (2 - Td or Tdap) [facility] Start: 01-21-2033 Urine microalbumin profile DTaP,Tdap,Td Vaccine (2 - Td or Tdap) [facility] Start: 05-02-2027 Diabetes Screening Diabetes Screenin g [facility] Start: 01-31-2027 Diabetes Screening Diabetes Screenin g [facility] Start: 02-02-2026 Diabetes Screening Diabetes Screenin g [facility] Start: 05-03-2025 Depression Screening Depression Scre ening [facility] Start: 05-03-2025 Fall Risk Screening Fall Risk Screen ing [facility] Start: 05-03-2025 Tobacco Screening Tobacco Screening [facility] Start: 01-31-2025 Adult BMI Screening Adult BMI Screen ing [facility] Start: 01-31-2025 Depression Screening Depression Scre ening [facility] Start: 01-31-2025 Fall Risk Screening Fall Risk Screen ing [facility] Start: 12-28-2024 Adult BMI Screening Adult BMI Screen ing [facility] Start: 12-28-2024 Depression Screening Depression Scre ening [facility] Start: 12-28-2024 Fall Risk Screening Fall Risk Screen ing [facility] Start: 12-28-2024 Tobacco Screening Tobacco Screening [facility] Start: 12-16-2024 Adult BMI Screening Adult BMI Screen ing [facility] Start: 12-14-2024 Tobacco Screening Tobacco Screening [facility] Start: 10-24-2024 Adult BMI Screening Adult BMI Screen ing [facility] Start: 10-24-2024 Tobacco Screening Tobacco Screening [facility] Start: 09-06-2024 Adult BMI Screening Adult BMI Screen ing [facility] Start: 09-06-2024 Depression Screening Depression Scre ening [facility] Start: 09-06-2024 Tobacco Screening Tobacco Screening [facility] Start: 08-08-2024 Adult BMI Screening Adult BMI Screen ing [facility] Start: 08-08-2024 Tobacco Screening Tobacco Screening [facility] Start: 08-02-2024 End: 08-02-2024 Patient encounter procedure 08/02/2024 1:00 PM EDT [facility] [address] [place] [address] Blaise Marie, [address] [place] [address] [facility] Start: 08-01-2024 End: 08-01-2024 Follow-up encounter 08/01/2024 1:00 PM EDT Visit (SP) Office Hematology/Oncology [address] [place] [address] Danis Self MD [address] [place] [address] Follow up Hematology/Oncology Comment on above: Follow up Start: 07-31-2024 End: 10-30-2024 CBC W Auto Differential panel - Blood COMPLETE BLOOD COUNT AND DIFFERENTIAL Lab Routine CLL (chronic lymphocytic leukemia) (HCC) Expected: 07/31/2024 (Approximate), Expires: 10/30/2024 [facility] Comment on above: Expected: 07/31/2024 (Approximate), Expires: 10/30/2024 Start: 07-31-2024 End: 10-30-2024 Comprehensive metabolic 2000 panel - Serum or Plasma COMPREHENSIVE METABOLIC PANEL Lab Routine CLL (chronic lymphocytic leukemia) (HCC) Expected: 07/31/2024 (Approximate), Expires: 10/30/2024 [facility] Comment on above: Expected: 07/31/2024 (Approximate), Expires: 10/30/2024 Start: 07-31-2024 End: 10-30-2024 FISH FOR CLL FISH FOR CLL Lab Routine CLL (chronic lymphocytic leukemia) (HCC) Expected: 07/31/2024 (Approximate), Expires: 10/30/2024 [facility] Comment on above: Expected: 07/31/2024 (Approximate), Expires: 10/30/2024 Start: 07-31-2024 End: 10-30-2024 FLOW CYTOMETRY FOR LEUKEMIA/LYMPHOMA (FCLL) FLOW CYTOMETRY FOR LEUKEMIA/LYMPHOMA (FCLL) Lab Routine CLL (chronic lymphocytic leukemia) (HCC) Expected: 07/31/2024 (Approximate), Expires: 10/30/2024 [facility] Comment on above: Expected: 07/31/2024 (Approximate), Expires: 10/30/2024 Start: 07-31-2024 End: 10-30-2024 JAK2 gene targeted mutation analysis in Blood or Tissue by Molecular genetics method [id number] MUTATION BLOOD Lab Routine CLL (chronic lymphocytic leukemia) (HCC) Other specified diseases of blood and blood-forming organs Expected: 07/31/2024, Expires: 10/30/2024 [facility] Comment on above: Expected: 07/31/2024 , Expires: 10/30/2024 Start: 07-31-2024 End: 10-30-2024 Lactate dehydrogenase [Enzymatic activity/volume] in Serum or Plasma LACTATE DEHYDROGENASE Lab Routine CLL (chronic lymphocytic leukemia) (HCC) Expected: 07/31/2024 (Approximate), Expires: 10/30/2024 [facility] Comment on above: Expected: 07/31/2024 (Approximate), Expires: 10/30/2024 Start: 07-19-2024 End: 07-19-2024 Patient encounter procedure 07/19/2024 12:20 PM EDT Office Visit [facility] Internal Medicine - Family Medicine [address] [place] [address] [facility] Internal Medicine - Family Medicine Start: 07-18-2024 Adult BMI Screening Adult BMI Screen ing [facility] Start: 07-18-2024 Depression Screening Depression Scre ening [facility] Start: 07-18-2024 Fall Risk Screening Fall Risk Screen ing [facility] Start: 07-18-2024 Medicare Annual Wellness Visit Medicare Annual Wellness Visit [facility] Start: 07-12-2024 End: 07-12-2024 Patient encounter procedure 07/12/2024 1:15 PM EDT Appointment Radiology Pet CT [address] [place] [address] [place] [address] CT CAP W IV CON Radiology Pet CT Comment on above: CT CAP W IV CON Start: 07-02-2024 End: 07-02-2024 Patient encounter procedure 07/02/2024 3:00 PM EDT Office Visit [facility] [place][note 2] [address] [place] [address] Sweetie Pop MD [address] [facility] [place][note 2], [address] [place] [address] [facility] [place][note 2] Start: 06-30-2024 End: 06-01-2025 CT Abdomen and Pelvis W contrast IV CT ABD/PEL W IVCON Radiology Routine CLL (chronic lymphocytic leukemia) (HCC) Expected: 06/30/2024, Expires: 06/01/2025 [facility] Work Phone: Comment on above: Expected: 06/30/2024 , Expires: 06/01/2025 Start: 06-30-2024 End: 06-01-2025 CT Chest W contrast IV CT CHEST W IVCON Radiology Routine CLL (chronic lymphocytic leukemia) (HCC) Expected: 06/30/2024, Expires: 06/01/2025 [facility] Comment on above: Expected: 06/30/2024 , Expires: 06/01/2025 Start: 05-24-2024 Adult BMI Screening Adult BMI Screen ing [facility] Start: 05-24-2024 Depression Screening Depression Scre ening [facility] Start: 05-24-2024 Fall Risk Screening Fall Risk Screen ing [facility] Start: 05-24-2024 Tobacco Screening Tobacco Screening [facility] Start: 05-18-2024 End: 05-18-2024 Telemedicine consultation with patient 05/18/2024 8:00 AM EST Telemedicine [facility] [address] [address] [facility] [address] [place] [id number] [place] [address] [place] [address] [facility] Start: 05-03-2024 End: 08-02-2024 CBC W Auto Differential panel - Blood COMPLETE BLOOD COUNT AND DIFFERENTIAL Lab Routine CLL (chronic lymphocytic leukemia) (HCC) Expected: 05/03/2024 (Approximate), Expires: 08/02/2024 [facility] Comment on above: Expected: 05/03/2024 (Approximate), Expires: 08/02/2024 Start: 05-03-2024 End: 08-02-2024 Cobalamin (Vitamin B12) [Mass/volume] in Serum or Plasma VITAMIN B12 Lab Routine CLL (chronic lymphocytic leukemia) ([facility]) Expected: 05/03/2024 (Approximate), Expires: 08/02/2024 [facility] Comment on above: Expected: 05/03/2024 (Approximate), Expires: 08/02/2024 Start: 05-03-2024 End: 08-02-2024 Comprehensive metabolic 2000 panel - Serum or Plasma COMPREHENSIVE METABOLIC PANEL Lab Routine CLL (chronic lymphocytic leukemia) ([facility]) Expected: 05/03/2024 (Approximate), Expires: 08/02/2024 [facility] Comment on above: Expected: 05/03/2024 (Approximate), Expires: 08/02/2024 Start: 05-03-2024 End: 08-02-2024 Direct antiglobulin test.poly specific reagent [Presence] on Red Blood Cells [facility] DIRECT Blood Bank Routine CLL (chronic lymphocytic leukemia) ([facility]) Expected: 05/03/2024 (Approximate), Expires: 08/02/2024 [facility] Comment on above: Expected: 05/03/2024 (Approximate), Expires: 08/02/2024 Start: 05-03-2024 End: 08-02-2024 Ferritin [Mass/volume] in Serum or Plasma FERRITIN Lab Routine CLL (chronic lymphocytic leukemia) ([facility]) Expected: 05/03/2024 (Approximate), Expires: 08/02/2024 [facility] Comment on above: Expected: 05/03/2024 (Approximate), Expires: 08/02/2024 Start: 05-03-2024 End: 08-02-2024 Folate [Mass/volume] in Serum or Plasma FOLATE, SERUM Lab Routine CLL (chronic lymphocytic leukemia) ([facility]) Expected: 05/03/2024 (Approximate), Expires: 08/02/2024 [facility] Comment on above: Expected: 05/03/2024 (Approximate), Expires: 08/02/2024 Start: 05-03-2024 End: 08-02-2024 Haptoglobin [Mass/volume] in Serum or Plasma HAPTOGLOBIN Lab Routine CLL (chronic lymphocytic leukemia) ([facility]) Expected: 05/03/2024 (Approximate), Expires: 08/02/2024 [facility] Comment on above: Expected: 05/03/2024 (Approximate), Expires: 08/02/2024 Start: 05-03-2024 End: 08-02-2024 Iron and Iron binding capacity panel - Serum or Plasma IRON AND TIBC Lab Routine CLL (chronic lymphocytic leukemia) (HCC) Expected: 05/03/2024 (Approximate), Expires: 08/02/2024 [facility] Comment on above: Expected: 05/03/2024 (Approximate), Expires: 08/02/2024 Start: 05-03-2024 End: 08-02-2024 Lactate dehydrogenase [Enzymatic activity/volume] in Serum or Plasma LACTATE DEHYDROGENASE Lab Routine CLL (chronic lymphocytic leukemia) (HCC) Expected: 05/03/2024 (Approximate), Expires: 08/02/2024 [facility] Comment on above: Expected: 05/03/2024 (Approximate), Expires: 08/02/2024 Start: 05-03-2024 End: 05-03-2024 Patient encounter procedure 05/03/2024 1:00 PM EST [facility] [address] [place] [address] Blaise Marie DO [address] [place] [address] [facility] - [facility] Start: 05-02-2024 End: 05-02-2024 Follow-up encounter 05/02/2024 1:30 PM EST Visit (SP) Office Hematology/Oncology [address] [place] [address] Danis Self MD [address] [place] [address] 3 MONTH FOLLOW UP Hematology/Oncology Comment on above: 3 MONTH FOLLOW UP Start: 05-02-2024 End: 05-02-2024 Patient encounter procedure 05/02/2024 1:15 PM EST Office Visit [facility] [address] [place] [address] 3 MONTH FOLLOW UP [facility] Comment on above: 3 MONTH FOLLOW UP Start: 04-11-2024 Advance Directive Discussion Advance Directive Discussion [facility] Start: 04-05-2024 Adult BMI Screening Adult BMI Screen ing [facility] Start: 04-05-2024 Depression Screening Depression Scre ening [facility] Start: 04-05-2024 Fall Risk Screening Fall Risk Screen ing [facility] Start: 04-05-2024 Tobacco Screening Tobacco Screening [facility] Start: 02-21-2024 Covid-19 Vaccine () Covid-19 Vaccine () [facility] Start: 02-21-2024 COVID-19 Vaccine () COVID-19 Vaccine () [facility] Start: 02-21-2024 COVID-19 Vaccine () COVID-19 Vaccine () [facility] Start: 02-03-2024 End: 05-04-2024 CBC W Auto Differential panel - Blood CBC + DIFF Lab Routine Monoclonal B-cell lymphocytosis Expected: 02/03/2024 (Approximate), Expires: 05/04/2024 [facility] Work Phone: Comment on above: Expected: 02/03/2024 (Approximate), Expires: 05/04/2024 Start: 02-03-2024 End: 05-04-2024 Comprehensive metabolic 2000 panel - Serum or Plasma COMP METABOLIC PANEL Lab Routine Monoclonal B-cell lymphocytosis Expected: 02/03/2024 (Approximate), Expires: 05/04/2024 [facility] Work Phone: Comment on above: Expected: 02/03/2024 (Approximate), Expires: 05/04/2024 Start: 02-03-2024 End: 05-04-2024 Lactate dehydrogenase [Enzymatic activity/volume] in Serum or Plasma LD LACTATE DEHYDRO Lab Routine Monoclonal B-cell lymphocytosis Expected: 02/03/2024 (Approximate), Expires: 05/04/2024 [facility] Work Phone: Comment on above: Expected: 02/03/2024 (Approximate), Expires: 05/04/2024 Start: 02-01-2024 End: 05-02-2024 BCR/ABL1 P190 QUANTITATIVE PCR BLOOD [facility] Comment on above: Expected: 02/01/2024 , Expires: 05/02/2024 Start: 02-01-2024 End: 05-02-2024 BCR/ABL1 P210 QUANTITATIVE PCR BLOOD [facility] Comment on above: Expected: 02/01/2024 , Expires: 05/02/2024 Start: 02-01-2024 End: 05-02-2024 IgG [Mass/volume] in Serum or Plasma [facility] Work Phone: Comment on above: Expected: 02/01/2024 , Expires: 05/02/2024 Start: 01-26-2024 End: 01-26-2024 Patient encounter procedure 01/26/2024 8:30 AM EDT Appointment [facility] [address] [place] [address] Blaise Marie, DO [address] [place] [address] [facility] Start: 01-12-2024 End: 01-12-2024 Patient encounter procedure 01/12/2024 2:00 PM EDT Office Visit [facility] Internal Medicine - Family Medicine [address] [place] [address] Blaise Marie, DO [address] [place] [address] [facility] Internal Medicine - Family Medicine Start: 01-03-2024 End: 01-03-2024 Patient encounter procedure 01/03/2024 1:00 PM EDT Office Visit [facility] Internal Medicine - Family Medicine [address] [place] [phone] Blaise Marie, DO [address] [place] [address] [facility] Internal Medicine - Family Medicine Start: 12-29-2023 End: 12-28-2024 Echo complete W/O contrast Echo complete W/O contrast Echocardiography Routine Orthostatic dizziness Pulmonary hypertension ([facility]) Expected: 12/29/2023, Expires: 12/28/2024 [facility] Work Phone: Comment on above: Expected: 12/29/2023 , Expires: 12/28/2024 Start: 12-29-2023 End: 12-29-2023 Patient encounter procedure 12/29/2023 12:30 PM EDT Office Visit [facility] Internal Medicine - Family Medicine [address] [place] [address] Blaise Marie, DO [address] [place] [address] [facility] - [facility] Start: 12-11-2023 COVID-19 Vaccine ( season) COVID-19 Vaccine ( season) [facility] Start: 12-11-2023 Influenza vaccination Influenza Vacc ine [facility] Start: 10-25-2023 End: 10-25-2023 Patient encounter procedure [facility][note 2] Start: 09-07-2023 End: 09-07-2023 Patient encounter procedure 09/07/2023 1:00 PM EDT Office Visit [facility] Medicine - Family Medicine [address] [place] [address] Blaise Marie, DO [address] [place] [address] [facility] Start: 08-09-2023 End: 08-09-2023 Patient encounter procedure 08/09/2023 11:30 AM EDT Office Visit [facility] [address] [place] [address] [place] [address] [place] [phone] Shani Burt MD [address] [place], [place] [phone] [facility] Start: 07-19-2023 End: 07-19-2023 Patient encounter procedure 07/19/2023 1:00 PM EDT Office Visit [facility] Internal Medicine - Family Medicine [address] [place] [phone] [facility] Start: 07-09-2023 Medicare Annual Wellness Visit Medicare Annual Wellness Visit [facility] Start: 04-29-2023 End: 04-29-2023 Telemedicine consultation with patient 04/29/2023 9:20 AM EST Telemedicine [facility] [address] [address] [place] [phone] [place] [address] [place] [address] [facility] Start: 04-27-2023 End: 04-27-2023 Patient encounter procedure 04/27/2023 11:00 AM EST Appointment [facility] [address] [place] [phone] [facility] Start: 04-11-2023 Advance Directive Discussion Advance Directive Discussion [facility] Start: 03-02-2023 End: 06-01-2023 PROTEIN ELECTROPHORESIS SERUM W/INTERP PROTEIN ELECTROPHORESIS SERUM W/INTERP Lab Routine Monoclonal B-cell lymphocytosis Expected: 03/02/2023 (Approximate), Expires: 06/01/2023 [facility] Work Phone: Comment on above: Expected: 03/02/2023 (Approximate), Expires: 06/01/2023 Start: 02-24-2023 COVID-19 Vaccine (4 - Pfizer risk series) COVID-19 Vaccine (4 - Pfizer risk series) [facility] Start: 02-24-2023 COVID-19 Vaccine () COVID-19 Vaccine () [facility] Start: 02-24-2023 Covid-19 Vaccine () Covid-19 Vaccine () [facility] Start: 02-24-2023 COVID-19 Vaccine () COVID-19 Vaccine () [facility] Start: 02-11-2023 VIRFUVSALVADOR, Provider : Sweetie Pop, Status: Pen, Time: 10:30 AM VIRFUVHOMGonzalo, Provider: Sweetie Pop, Status: Elvis, Time: 10:30 AM RX-Ndcknheshh-[place] A Work Phone: Start: 02-02-2023 End: 05-04-2023 MONOCLONAL PROTEIN, SERUM (BLOOD) [facility] Work Phone: Comment on above: Expected: 02/02/2023 , Expires: 05/04/2023 Start: 11-19-2022 FUV, Provider: Sweetie Pop, Status: Pen, Time: 10:30 AM FUV, Provider: Sweetie Pop, Status: Pen, Time: 10:30 AM XB-Djzjntbzjg-Safhxca e 2100 DO Work Phone: Start: 08-06-2022 VIRFUVSALVADOR, Provider : Sweetie Pop, Status: Pen, Time: 10:15 AM VIRFUVHOME, Provider: Sweetie Pop, Status: Pen, Time: 10:15 AM DQ-Lnrcgunocl-Eyjauld e 2100 DO Work Phone: Start: 04-11-2022 Advance Directive Discussion Advance Directive Discussion [facility] Start: 04-11-2022 Depression Assessment Depression Ass essment [facility] Start: 03-26-2022 FUV, Provider: Sweetie Pop, Status: Pen, Time: 10:00 AM FUV, Provider: Sweetie Pop, Status: Pen, Time: 10:00 AM GQ-Npgjtekons-Fhwgxme e 2100 DO Work Phone: Start: 10-09-2021 VIRJEFF, Provider : Rodriguez Quiroz, Status: Pen, Time: 8:20 AM VIRFUVHOME, Provider: Rodriguez Quiroz, Status: Pen, Time: 8:20 AM [facility] Bo Work Phone: Start: 09-25-2021 FUV, Provider: Sweetie Pop, Status: Pen, Time: 10:00 AM FUV, Provider: Sweetie Pop, Status: Pen, Time: 10:00 AM [facility] [place] Work Phone: Start: 06-12-2021 VIRFUCARLINE, Provider : Rodriguez Quiroz, Status: Pen, Time: 9:40 AM VIRFUVHOME, Provider: Rodriguez Quiroz, Status: Pen, Time: 9:40 AM CO-Vmniuzeuir-Pmdifoc e 2100 DO Work Phone: Start: 05-15-2021 VIRJEFF, Provider : Sweetie Pop, Status: Pen, Time: 10:15 AM VIRFUVHOME, Provider: Sweetie Pop, Status: Pen, Time: 10:15 AM QH-Vjthgszdby-Ndqvjuc e 2100 DO Work Phone: Start: 1958 Anxiety Screening Anxiety Screening [facility] Start: 1958 Depression Screening Depression Scre ening [facility] Start: 1958 Diabetes mellitus screening Diabetes Screening [facility] Start: 1940 Lipid panel Lipid Panel [facility] Start: 1940 Medicare Annual Wellness Visit Medicare Annual Wellness Visit (AWV) [facility] Start: 1940 Thyroid stimulating hormone measurement TSH Level [facility] End: 02-13-2025 Bacteria identified in Urine by Culture Urine Culture Microbiology Routine Lower urinary tract symptoms (LUTS) 1 Occurrences starting 02/14/2024 until 02/13/2025 [employer] Work Phone: Comment on above: 1 Occurrences starti ng 02/14/2024 until 02/13/2025 End: 05-24-2024 CBC panel - Blood by Automated count CBC without diff Lab Routine Chronic obstructive pulmonary disease, unspecified COPD type ([facility]) 1 Occurrences starting 05/24/2023 until 05/24/2024 [employer] Work Phone: Comment on above: 1 Occurrences starti ng 05/24/2023 until 05/24/2024 CBC panel - Blood by Automated count CBC without diff Lab Routine Chronic obstructive pulmonary disease, unspecified COPD type ([facility]) 05/24/2023 9:[facility] CBC W Auto Differential panel - Blood CBC + DIFF Lab Routine Monoclonal B-cell lymphocytosis 02/02/2023 3:25 PM EDT [facility] Work Phone: CBC W Auto Differential panel - Blood COMPLETE BLOOD COUNT AND DIFFERENTIAL Lab Routine CLL (chronic lymphocytic leukemia) ([facility]) 02/01/2024 12:37 PM EDT [facility] End: 08-11-2024 Comprehensive metabolic 2000 panel - Serum or Plasma Comprehensive metabolic panel Lab Routine Bronchiectasis without complication (CMS/HCC) 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) q 3 month for 4 Occurrences starting 02/11/2023 until 08/11/2024 [facility] Work Phone: Comment on above: q 3 month for 4 Occu rrences starting 02/11/2023 until 08/11/2024 End: 02-12-2024 IgG [Mass/volume] in Serum or Plasma IgG Lab Routine Bronchiectasis without complication (CMS/HCC) 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 Planned Goals not documented YC-Hqskxmkgee-Uuerpf Work Phone: Immunizations Immunization Date Immunization Notes Care Provider Christiano simon 12-27-2023 influenza, high dose seasonal, preservative-free Blaise Marie DO Work Phone: [facility] 01-21-2023 respiratory syncytia l virus (RSV) vaccine, adjuvanted (AREXVY) Tristin Campbell MD Work Phone: [facility] 01-21-2023 tetanus toxoid, redu leatha diphtheria toxoid, and acellular pertussis vaccine, adsorbed Tristin Campbell MD Work Phone: [facility] 12-30-2022 influenza (HD-IIV4) vaccine, age 65+ yr, high dose, quadrivalent, PF (FLUZONE HIGH-DOSE) Tristin Campbell MD Work Phone: [facility] 12-30-2022 Pfizer COVID-19 vacc ine, Fall 2022, 12 years and older, (30mcg/0.3mL) Sweetie Pop MD Work Phone: [facility] Work Phone: 12-30-2022 influenza virus vacc ine, unspecified formulation Blaise Marie DO Work Phone: [facility] 10-13-2022 zoster vaccine recombinant Tristin Campbell MD Work Phone: [facility] 08-10-2022 zoster vaccine recombinant Tristin Campbell MD Work Phone: [facility] 01-06-2022 Fluzone High-Dose Quadrivalent 0.7 ML Intramuscular Suspension Prefilled Syringe Blaise Marie Work Phone: [facility] 01-06-2022 Pfizer COVID-19 Vac Bivalent 30 MCG/0.3ML Intramuscular Suspension Blaise Greeneiva Work Phone: [facility] Work Phone: 08-12-2021 Comirnaty 30 MCG/0.3 ML Intramuscular Suspension Blaise Isaacrachael Work Phone: [facility] [place] Work Phone: 01-28-2021 Fluad Quadrivalent 0 .5 ML Intramuscular Prefilled Syringe Blaise Ebony Marie Work Phone: [facility] 01-28-2021 Pfizer-BioNTech COVI D-19 Vacc 30 MCG/0.3ML Intramuscular Suspension Blaise Ebony Marie Work Phone: [facility] [employer] Work Phone: 05-28-2020 Pfizer-BioNTech COVI D-19 Vacc 30 MCG/0.3ML Intramuscular Suspension Blaise Beck Ned Work Phone: [facility] Work Phone: 05-05-2020 COVID-19, mRNA, LNP- S, PF, 100mcg/0.5mL Dose Blaise Marie DO Work Phone: [facility] 05-05-2020 Pfizer-BioNTech COVI D-19 Vacc 30 MCG/0.3ML Intramuscular Suspension Blaise Marie Work Phone: [facility] 01-11-2020 Fluad Quadrivalent 0 .5 ML Intramuscular Prefilled Syringe Blaise Marie Work Phone: [facility] 02-27-2019 pneumococcal polysaccharide vaccine, 23 valent Blaise Marie Work Phone: [facility] 12-28-2018 AS03 adjuvant Tristin Campbell MD Work Phone: [facility] 12-28-2018 Seasonal trivalent influenza vaccine, adjuvanted, preservative free Blaise L Yuhas Work Phone: [facility] 01-20-2018 influenza, high dose seasonal, preservative-free Blaise L Yuhas Work Phone: [facility] 01-18-2018 influenza, injectabl e, quadrivalent, contains preservative Tristin Campbell MD Work Phone: [facility] 04-29-2017 pneumococcal conjuga te vaccine, 13 valent; Translations: [Prevnar 13 Intramuscular Suspension] Rodriguez [facility] Comment on above: Series: 04-11-2017 pneumococcal conjuga te vaccine, 13 valent Blaise Beck Yuhas Work Phone: [facility] 01-23-2017 influenza, injectabl e, quadrivalent, contains preservative Blaise Beck Yuhas Work Phone: [facility] 02-23-2016 influenza, high dose seasonal, preservative-free Blaise L Yuhas Work Phone: [facility] 01-29-2015 influenza, high dose seasonal, preservative-free Blaise L Yuhas Work Phone: [facility] 02-12-2014 influenza, seasonal, injectable Blaise L Yuhas Work Phone: [facility] 02-06-2013 influenza virus vacc ine, whole virus Blaise Beck Yuhas Work Phone: [facility] 01-12-2012 influenza, seasonal, injectable Blaise L Yuhas Work Phone: [facility] 06-10-2011 pneumococcal polysaccharide vaccine, 23 valent Blaise Beck Yuhas Work Phone: [facility] Payers Date Payer Category Payer Commercial Indemnity [facility] [id number] 2018 Unknown 2003 Medicare [id number] 1959 Medicare [id number] 1959 Unknown [id number] 1938 Unknown [id number] 2.16.840.1.277866.3.579.2.5 93 1938 Unknown [id number] 2.16.840.1.433679.3.579.2.5 93 1938 Unknown [id number] 2.16.840.1.240773.3.579.2.3 56 1938 Unknown [id number] 2.16.840.1.475668.3.579.2.3 56 1938 Unknown [id number] 2.16.840.1.288814.3.579.2.3 56 1938 Unknown [id number] 2.16.840.1.708675.3.579.2.3 56 1938 Unknown [id number] 2.16.840.1.781463.3.579.2.1 286 1938 Unknown [id number] 2.16.840.1.859133.3.579.2.1 286 1938 Unknown [id number] 2.16.840.1.820675.3.579.2.1 286 1938 Unknown [id number] 2.16.840.1.820068.3.579.2.1 286 1938 Unknown [id number] 2.16.840.1.977604.3.579.2.1 286 1938 Unknown [id number] 2.16.840.1.501923.3.579.2.1 286 1938 Unknown [id number] 2.16.840.1.956285.3.579.2.1 286 1938 Unknown [id number] 2.16.840.1.724805.3.579.2.1 286 1938 Unknown [id number] 2.16.840.1.607295.3.579.2.1 286 1938 Unknown [id number] 2.16.840.1.502877.3.579.2.1 286 1938 Unknown [id number] 2.16.840.1.393294.3.579.2.1 286 1938 Unknown [id number] 2.16.840.1.646513.3.579.2.1 [facility] 1938 Unknown [id number] 2.16.840.1.569034.3.579.2.1 1938 Unknown [id number] 2.16.840.1.565953.3.579.2.1 [facility] 1938 Unknown [id number] 2.16.840.1.957245.3.579.2.1 1938 Unknown [id number] 2.16.840.1.296488.3.579.2.1 [facility] 1938 Unknown [id number] 2.16.840.1.950652.3.579.2.1 1938 Unknown [id number] 2.16.840.1.792092.3.579.2.1 286 1938 Unknown [id number] 2.16.840.1.024247.3.579.2.1 1938 Unknown [id number] 2.16.840.1.214131.3.579.2.1 [facility] 1938 Unknown [id number] 2.16.840.1.747592.3.579.2.1 286 1938 Unknown [id number] 2.16.840.1.925080.3.579.2.1 286 1938 Unknown [id number] 2.16.840.1.879207.3.579.2.1 286 1938 Unknown [id number] 2.16.840.1.786988.3.579.2.1 286 1938 Unknown [id number] 2.16.840.1.896978.3.579.2.1 244 1938 Unknown [id number] 2.16.840.1.294055.3.579.2.1 [facility] 1940 Unknown [id number] 2.16.840.1.153468.3.579.2.1 244 1938 Unknown [id number] 2.16.840.1.103305.3.579.2.1 [facility] 1938 Unknown [id number] 2.16.840.1.688987.3.579.2.1 [facility] 1938 Unknown [id number] 2.16.840.1.187929.3.579.2.1 [facility] Social History Date Type Detail Facility Start: 02-02-2023 End: 03-17-2023 Former smoker Former smoker [facility] Start: 08-14-2021 End: 02-02-2023 Tobacco smoking status NHIS Ex-smoker [facility] History of tobacco use Current smoker [facility] History of tobacco use Cigarette Smoker [facility] History of tobacco use Passive smoker [facility] Start: 08-14-2021 End: 02-02-2023 Tobacco use and exposure Smokeless tobacco non-user [facility] Start: 02-02-2023 Alcohol intake Ex-drinker (finding) [facility] Start: 02-02-2023 End: 03-17-2023 Tobacco use panel [facility] National Score (1-10 0), lower number is lower risk 87 [facility] Start: 1940 Sex Assigned At Not on file [facility] Start: 02-11-2023 Tobacco smoking stat us NHIS Never smoked tobacco [facility] Start: 04-19-2023 End: 03-05-2024 Exposure to SARS-CoV-2 (event) Not sure [facility] Start: 1940 Sex Assigned At Male [facility] Start: 12-15-2023 End: 12-29-2023 Alcoholic beverage intake Current drinker of alcohol (finding) [facility] Has the [employer], or [employer] threatened to shut off services in your home in past 12Mo No [facility] Do you belong to any clubs or organizations such as gnosticist groups, unions, fraternal or athletic groups, or school groups? Yes [facility] Are you now , , , , never or living with a partner? [facility] How often to you hav e a drink containing alcohol? Monthly or less [facility] How often do you hav e 6 or more drinks on 1 occasion? Never [facility] Do you feel stress - tense, restless, nervous, or anxious, or unable to sleep at night because your mind is troubled all the time - these days [OSQ] Only a little [facility] Start: 03-09-2022 Education 17 [facility] Start: 11-14-2014 Sex Male (finding) [facility] Start: 04-16-2018 Gender identity Identifies as male gender (finding) [facility] Start: 04-16-2018 Sexual orientation Heterosexual (fin rain) [facility] NEGATED: Highlighted row - - WM-Lvvypchhou-Dfqnj a Work Phone: Goals Date Patient Goal Desired Activity /State Personal health goal Comment on above: Formatting of this n ote might be different from the original. Evaluation of progress towards goal: In progress: return home with . Functional Status Date Assessment Result Facility NEGATED: Highlighted row Functional performance Functional status health issues are not documented Disease XM-Fgyswxzmom-Gvvev a Work Phone: Mental Status Date Assessment Result Facility NEGATED: Highlighted row Cognitive function [Interpretation] Cognitive status health issues are not documented Disease FB-Qwpuugbive-Nmbbp a Work Phone: Clinical Notes 12-10-2018 to [...] TMP-SMX and tobramycin. [facility] 04/26/2024 [facility]) grew normal throat bryson At [...] by mouth once daily., Disp: , Rfl: pytthatkxax-ffpuoykzm-pkaivjur (Trelegy Ellipta) 200-62.5-25 mcg blister with device, [...] more regularly with pulmonary medicine in [facility] (Dr. Jacobson). Recent notes from Dr. [...] Rodriguez Quiroz MD documented in this encounter [facility] Work Phone: 05-03-2024 History of Present illness Narrative IM PROGRESS NOTE Patient - Rashad Mcnair Age - 83 y.o. - 1940 Merged With [facility] # - [id number] ASSESSMENT & PLAN 1. Hypotension due to hypovolemia (Primary) -still with orthostatic changes on his blood pressure -encouraged him to make sure he is getting 2 L of fluid daily -encouraged him to stand slowly and deliberately -weight before walking -if he would start having more frequent symptomatic episodes, will probably need to start alpha agonist. 2. Chronic myeloproliferative disease ([facility]) -keep follow-up with Oncology as scheduled -I reviewed the lab results done at [facility] yesterday with the patient. Results were discussed. 3. Pulmonary hypertension ([facility]) -continue oxygen continuously with portability 4. 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 Chronic obstructive pulmonary disease, unspecified COPD type ([facility]) -now currently on Trelegy once daily -keep follow-up with pulmonology 6. Bronchiectasis ([facility]) -keep follow-up with pulmonology 7. Paroxysmal atrial fibrillation ([facility]) -currently on Xarelto for thromboembolism prophylaxis -not currently on medication for rate control due to hypotension 8. Chronic renal impairment, stage 3a ([facility]) -most recent GFR ranges 64-65 -continue renal [...] Exam Vitals reviewed. Exam conducted with a education research analyst present (). Constitutional: General: He is not [...] on 04/28/2024 5:17 PM Blaise Marie DO., [facility] Office: [phone] documented in this encounter [facility] 05-03-2024 Telephone encounter Note Pt notified and agreeable to obtain and begin OTC meds, as recommended. Pt denies questions, needs or concerns at this time. Appt verified for f/u Ros Obrien RN [facility] 05-03-2024 Miscellaneous Notes Pt notified [...] anemia. Thank you. documented in this encounter [facility] 05-03-2024 Telephone encounter Note Attempted to notify pt at home number, again VM deletes attempt. Will await call back from initial contact VM left. Ros Obrien RN [facility] 05-03-2024 Telephone encounter Note VM left on Sandro SAUER when dialed provided cell phone number. Detailed message to begin OTC meds, as recommended. Encouraged to call back with receipt of VM. Ros Obrien RN [facility] 05-03-2024 Telephone encounter Note Please tell him to take OTC iron and vit C supplements, 1 tab daily for iron def anemia. Thank you. [facility] 05-02-2024 Instructions Danis Self MD - 05/02/2024 1:39 PM EST Ordered CT scans F/u in 3 months documented in this encounter [facility] 05-02-2024 History of Present illness Narrative PATIENT NAME: Rashad Mcnair CLINIC NO.: [id number] ATTENDING PHYSICIAN: Danis Self MD DATE OF [...] every week at home. Being monitored by redye hand at . 05/02/24: - Doing well - [...] Range Status 02/01/2024 7.0 % Final Abs [place] Date Value Ref Range Status 02/01/2024 2.13 [...] immunoglobulins every week at home. Follow-up with redye hand at [facility]. Patient will continue to follow-up with pulmonary [...] Danis Self M.D. Hematology/Medical Oncology CC [place] [phone] CC: Blaise Marie, documented in this encounter [facility] 05-02-2024 Note HNO ID: [id number] Author: DANIS SELF MD Service: ? Author Type: Physician Type: Progress Notes Filed: 05/03/2024 10:54 Note Text: PATIENT NAME: Rashad Mcnair CLINIC NO.: [id number] ATTENDING PHYSICIAN: Danis Self MD DATE OF [...] every week at home. Being monitored by redye hand at . 05/02/24: - Doing well - [...] movements are int (more content not included)... [facility] 03-11-2024 Evaluation + Plan note Associated Problem(s): CVID (common variable immunodeficiency) Last IgG level was adequate, but there is some room to increase his dose if needed. He recently had an episode of pneumonia, but he currently feels good. Repeat IgG level in 4 months with CMP (if needed) prior to next visit Continue Hizentra weekly. [facility] Work Phone: 03-11-2024 Miscellaneous Notes Associated Problem(s): CVID (common variable immunodeficiency) Last IgG level was adequate, but there is some room to increase his dose if needed. He recently had an episode of pneumonia, but he currently feels good. Repeat IgG level in 4 months with CMP (if needed) prior to next visit Continue Hizentra weekly. documented in this encounter [facility] Work Phone: 03-05-2024 History of [...] Continue Hizentra weekly. documented in this encounter [facility] Work Phone: 03-05-2024 Instructions Sweetie Pop MD - 03/05/2024 3:15 PM EST Continue Hizentra 7 g weekly infusions. Follow up in 4 months or sooner if problems or symptoms worsen prior. Labs prior to next appointment documented in this encounter [facility] Work Phone: 02-14-2024 History of [...] at this time documented in this encounter [facility] 02-13-2024 Miscellaneous Notes Pt called wanting to know if her could come in for a nurse visit he thinks he's got a UTI? Message noted. Yes I got him in for a nurse visit at 1330 documented [facility] this [facility] 02-13-2024 Telephone encounter Note Pt called wanting to know if her could come in for a nurse visit he thinks he's got a UTI? [facility] 02-13-2024 Telephone encounter Note Message noted. Yes [facility] 02-13-2024 Telephone encounter Note I got him in for a nurse visit at 1330 [facility] 02-01-2024 History of Present illness Narrative IM PROGRESS NOTE Patient - Rashad Mcnair Age - 83 y.[facility]. [facility] 1940 [id number] ASSESSMENT & PLAN 1. Hypotension due to hypovolemia (Primary) -orthostatic blood pressures today were unremarkable. -symptoms have resolved over the last several weeks with more attention to regular fluid intake. -he remains off all blood pressure medications (in addition to his rate-controlling agent metoprolol) -no changes today 2. Pulmonary hypertension ([facility]) -I reviewed the results of his recent echocardiogram with the patient and . -has pulmonary hypertension which is expected given his disease process -it is yztj-fs-hpkkwjkj the current time, with little symptoms -continue continuous oxygen 3. Bronchiectasis ([facility]) -now has a smart vest which he is using regularly -seems to be mobilizing secretions better -no changes today 4. Chronic obstructive pulmonary disease, unspecified COPD type ([facility]) -stable Subjective 83-year-old male presents for recheck [...] a LVEF of 60-65%. There is some jevh-lf-alyflfeb pulmonary hypertension noted. -he has not felt [...] Exam Vitals reviewed. Exam conducted with a education research analyst present (). Constitutional: General: He is not [...] 01/26/2024 0.77 Final Left Ventricle Mass 01/26/2024 106.874172494197491 g Final Interventricular Septum Diastolic * 01/26/2024 [...] on 12/15/2023 2:57 PM Blaise Marie DO., [facility] Office: [phone] documented in this encounter [facility] 02-01-2024 History of Present illness Narrative PATIENT NAME: Rashad Mcnair CLINIC NO.: [id number] ATTENDING PHYSICIAN: Danis Self MD DATE OF [...] every week at home. Being monitored by redye hand at . Current Outpatient Medications Medication Sig [...] Range Status 02/02/2023 10.2 % Final Abs [place] Date Value Ref Range Status 02/02/2023 2.49 [...] immunoglobulins every week at home. Follow-up with redye hand at [facility]. Patient will continue to follow-up with pulmonary [...] number below. Danis Self M.D. [phone] CC: Blaise Marie, documented in this encounter [facility] 02-01-2024 Note HNO ID: [id number] Author: DANIS SELF MD Service: ? Author Type: Physician Type: Progress Notes Filed: 02/01/2024 13:30 Note Text: PATIENT NAME: Rashad Mcnair CLINIC NO.: [id number] ATTENDING PHYSICIAN: Danis Self MD DATE OF [...] every week at home. Being monitored by redye hand at . Current Outpatient Medications Medication Sig [...] light duty. P (more content not included)... [facility] 02-01-2024 Instructions Danis Self MD - 02/01/2024 1:19 PM EDT Labs today and in 3 months F/u in 3 months documented in this encounter [facility] 12-29-2023 History of Present illness [...] Exam Vitals reviewed. Exam conducted with a education research analyst present (). Constitutional: General: He is not [...] forwarded to his ID specialist and his redye hand and bowl topper. Unfortunately, his main symptoms now are related [...] Chronic obstructive pulmonary disease, unspecified COPD type ([facility]) documented in this encounter [facility] 12-28-2023 Miscellaneous Notes FYI- Patient called stating that he believes he is experiencing some low BP 102/56. He will speak to you at his apt Message noted. documented in this encounter [facility] 12-28-2023 Telephone encounter Note FYI- Patient called stating that he believes he is experiencing some low BP 102/56. He will speak to you at his apt [facility] 12-28-2023 Telephone encounter Note Message noted. [facility] 12-28-2023 Miscellaneous Notes Patients wif called [...] day Has he been contacted by the [employer] people yet? He is using the o2, [...] then Message noted. documented in this encounter [facility] 12-28-2023 Telephone encounter Note Patients wif called and he has been having labored breathing on and off all day, he comes in for his TCM tomorrow. Is there something that you vcan recoomend for the breathing? He said the it is better than what it was when he was in the hospital. [facility] 12-28-2023 Telephone encounter Note Message noted. He should make sure he is using his oxygen Make sure he is using the nebulizer four times a day Has he been contacted by the [employer] people yet? [facility] 12-28-2023 Telephone encounter Note He is [...] he said to talk to him then [facility] 12-28-2023 Telephone encounter Note Message noted. [facility] 12-19-2023 Miscellaneous Notes Not needed documented in this encounter [facility] 12-19-2023 Telephone encounter Note Not needed [facility] 12-19-2023 Miscellaneous Notes Needs TCM. Timer started 12/17/2023 Can we use 12:30 or 4:15 same day next week? Message noted. Yes LM on VM documented in this encounter [facility] 12-19-2023 Telephone encounter Note Needs TCM. Timer started 12/17/2023 [facility] 12-19-2023 Telephone encounter Note Can we use 12:30 or 4:15 same day next week? [facility] 12-19-2023 Telephone encounter Note Message noted. Yes [facility] 09-09-2024 Telephone encounter Note LM on VM [facility] 12-19-2023 Miscellaneous Notes Transition of Care [...] Discharge Specialty: Pulmonology *Name of Discharging Facility: [facility] Date of Facility Discharge: 12.15.23 - 12.17.23 Date of Interactive Contact and Name of Superintendent Electric Power: 12.19.23 10:30am Spoke with patient. *Medication Review [...] Tcm scheduled 12/28 documented in this encounter [facility] 12-19-2023 Telephone encounter Note Transition of [...] Discharge Specialty: Pulmonology *Name of Discharging Facility: [facility] Date of Facility Discharge: 12.15.23 - 12.17.23 Date of Interactive Contact and Name of Superintendent Electric Power: 9.9.24 10:30am Spoke with patient. *Medication Review [...] Other Services Utilized/Needed by the Patient: NA [facility] 12-19-2023 Telephone encounter Note Tcm scheduled 12/28 [facility] 10-25-2023 History of Present illness Narrative Rashad Garcia Moise Date of visit: 10/25/2023 Date of : 1940 Age: 83 y.o. 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 ([facility]) Hyperlipidemia Gastric reflux Obstructive sleep apnea syndrome Pneumonia due to Pseudomonas ([facility]) Secondary hypothyroidism Spinal stenosis Arthritis Chronic lymphocytic leukemia of B-cell type not having achieved remission ([facility]) Bronchiectasis with acute exacerbation ([facility]) Acute hyponatremia Hypoxemia Laryngotracheobronchitis due to Haemophilus [...] PT HAS HAD LABS, EKG, [facility] History of Present Illness I last saw this 83-year-old in 2012. He was last in the office August/[address] Elisabet Pepper He denies chest pain. He has chronic shortness of breath. 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 He is unaccompanied today CV TESTING HISTORY: [...] 10/17/2018 Performed by Delroy Horton MD at [facility] () CATARACT EXTRACTION, BILATERAL DISC REMOVAL SINUS [...] min Stress: No Stress Concern Present (03/17/2023) [employer] - Occupational Stress Questionnaire Feeling of Stress : Only a little Social Connections: Moderately Integrated (03/17/2023) Social Connection and Isolation Panel [NHANES] Frequency of Communication with Friends and Family: Twice a week Frequency of Social Gatherings with Friends and Family: Once a week Attends L[employer]-Day Services: Never Active Member of Clubs or [...] Referring Physician: Blaise Marie DO [address] [place] [address] documented in this encounter [facility] 10-24-2023 Miscellaneous Notes Called patient to remind them to bring their most current copy of their medication list with them to their appt. Patient verbalizes understanding. documented in this encounter [facility] 10-24-2023 Telephone encounter Note Called patient to remind them to bring their most current copy of their medication list with them to their appt. Patient verbalizes understanding. [facility] 10-10-2023 Miscellaneous Notes ----- Message from Dr. Blaise Marie DO sent at 05/24/2023 5:02 PM EST ----- CV recheck Sent mychart msg Scheduled documented in this encounter [facility] 10-10-2023 Telephone encounter Note ----- Message from Dr. Blaise Marie DO sent at 05/24/2023 5:02 PM EST ----- CV recheck [facility] 10-10-2023 Telephone encounter Note Sent mychart msg [facility] 10-10-2023 Telephone encounter Note Scheduled [facility] 09-07-2023 History of Present illness Narrative IM PROGRESS NOTE Patient - Rashad Mcnair Age - 83 y.o. - 1940 ASSESSMENT & PLAN 1. Chronic obstructive pulmonary disease, unspecified COPD type (CMS-HCC) - GOLD Stage B - Stable from previous - Will get 6 min walk to qualify for portable O2 2. Bronchiectasis ([facility]) - Episodes requiring bronchoscopy are increasing - [...] Exam Vitals reviewed. Exam conducted with a education research analyst present (). Constitutional: General: He is not [...] Rabia Dias MD on 07/05/2023 7:54 AM Blasie Marie DO., [facility] Office: [phone] documented in this encounter [facility] 08-24-2023 Miscellaneous Notes Please sign and route if you agree. Thank you TOM 08/17/22 ABN CMP 06/07/23 ABN CBC 05/24/23 Pt needs annual appt scheduled please, thank you. Letter sent. documented in this encounter [facility] 08-24-2023 Telephone encounter Note Please sign and route if you agree. Thank you TOM 08/17/22 ABN CMP 06/07/23 ABN CBC 05/24/23 Pt needs annual appt scheduled please, thank you. Letter sent. [facility] 08-09-2023 History of Present illness Narrative Images from the original note were not included. [address] [place] [address] [facility] [place] [id number] Patient: Rashad Mcnair Date of : 1940 [...] 10/17/2018 Performed by Delroy Horton MD at [facility] ([facility]) CATARACT EXTRACTION, BILATERAL DISC REMOVAL SINUS [...] for your understanding. documented in this encounter [facility] 07-19-2023 History of Present illness Narrative [...] Do you have a durable power of attorney lawyer?: Yes Cognitive Screening Do you have trouble [...] year (around 07/18/2024). [facility] Evaluation + Plan note Associated Problem(s): CVID (common variable immunodeficiency) (CMS/HCC) His level is back up to his baseline. His last creatinine was within normal limits. Continue Hizentra 7 g weekly infusions. Obtain IgG level blood work before next appointment in October 2023. [facility] Work Phone: 06-19-2023 Miscellaneous Notes Associated Problem(s): CVID (common variable immunodeficiency) (CMS/HCC) His level is back up to his baseline. His last creatinine was within normal limits. Continue Hizentra 7 g weekly infusions. Obtain IgG level blood work before next appointment in October 2023. documented in this encounter [facility] Work Phone: 06-14-2023 History of [...] patient. Patient will be participating in a [employer] concert. Physical Exam Constitutional: Appearance: Normal appearance. [...] discussion and plan. documented in this encounter [facility] Work Phone: 06-14-2023 Instructions Arabella Singh - 06/14/2023 12:15 PM EST Continue Hizentra 7 g weekly infusions. Obtain IgG level blood work before next appointment in October 2023. Continue 3% sodium chloride nebulizer as needed. Follow up Tuesday at [place], 10-25-2023 at 2:00 pm or sooner if symptoms worsen prior. documented in this encounter [facility] Work Phone: 05-24-2023 History of [...] daily 7. Chronic renal impairment, stage 3a ([facility]) -renal protective strategies reviewed with the patient [...] urinary frequency/urgency Immunologic: Recently was seen by convertible top installer and Infectious Disease. They had no changes [...] Testing No results found. Blaise Marie DO., [facility] Office: [phone] documented in this encounter [facility] 04-29-2023 History of Present illness Narrative Infectious Diseases Clinic Follow-up: Reason for Visit: FOLLOW UP Telephone assessment History of Current Issue Patient was last evaluated 03/19/2022 but several calls and chart updates (05/18/22, 05/19/22 and 06/10/22) Patient has been following regularly with pulmonary medicine in [facility]. Patient currently using a flutter valve [...] pneumococci. Patient and his report hospitalization at [facility] in March 2023. Patient cannot recall antibiotic [...] when up and about. 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 Patient has had no fever, chills, [...] more regularly with pulmonary medicine in [facility] (Dr. Jacobson) I have received regular [...] see if they would order that at [facility]. Alternatively I can print the requisition and [...] If not I can send order to [facility] lab. I think it would be helpful [...] information but can call ID office at [phone] I spent 40 minutes in the professional and overall care of this patient. Rodriguez Quiroz MD documented in this encounter [facility] Work Phone: 04-05-2023 History of Present illness Narrative IM PROGRESS NOTE Patient - Rashad Mcnair Age - 82 y.[facility]. [facility] 1940 [id number] ASSESSMENT & PLAN 1. Acute exacerbation of [...] 2023. He has been seen by his bowl topper since that visit. -initially was on nebulizer, [...] Exam Vitals reviewed. Exam conducted with a education research analyst present (). Constitutional: General: He is not [...] Testing No results found. Blaise Marie DO., [facility]: [phone] documented in this encounter [facility] 02-15-2023 Evaluation + Plan note Associated Problem(s): Pseudomonas aeruginosa colonization No growth in current culture from bronchoscopy. I would like him to continue to follow with Dr. Quiroz so he can stay in the loop of his case. That way if he develops another infection ID can give their opinion. [facility] Work Phone: 02-15-2023 Miscellaneous Notes [...] a great sign. documented in this encounter [facility] Work Phone: 02-15-2023 Evaluation + Plan note Associated Problem(s): Bronchiectasis ([facility]) His case is incredibly complicated due to his bronchietasis. He recently underwent a bronchoscopy with clearing of the excessive secretions he develops in his airways. Currently no growth from bronchoscopy which is a great sign. He is treated by Dr. Jacobson. 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 Jay in the past caused decreased renal function [facility] Work Phone: 02-15-2023 Evaluation + [...] from bronchoscopy which is a great sign. [facility] Work Phone: 02-11-2023 History of Present illness Narrative Subjective Rashad Mcnair is a 82 y.o. male who presents for Immunodeficiency and Recurrent Pneumonia. Chief Complaint Patient presents with Immunodeficiency Recurrent Pneumonia Patient is at home accompanied by his . Patient returned to Dr. Jacobson, Circulation Representative, in Apr 2022 for breathing issues. 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 He [...] discussion and plan. documented in this encounter [facility] Work Phone: 02-11-2023 Instructions Arabella Singh - 02/11/2023 10:30 AM EDT Continue Hizentra infusions. Obtain IgG level recheck every 3 months. I recommend followup with Dr. Quiroz, ID, and Dr. Jacobson, Circulation Representative. documented in this encounter [facility] Work Phone: 02-02-2023 History of Present illness Narrative PATIENT NAME: Rashad Mcnair CLINIC NO.: [id number] ATTENDING PHYSICIAN: Tristin Campbell MD DATE OF [...] number below. Tristin Campbell M.D. Hematology/Medical Oncology [place] [phone] CC: Blaise Marie, documented in this encounter [facility] 08-06-2022 History of Present illness [...] have followup scheduledHe continues Xarelto 20 per slurry control operator helper but questions if this raises a bleeding [...] appointment scheduled with Dr. Quiroz, ID, yet. IG-[facility]cft[facility] [place] [facility] Work Phone: 08-06-2022 History of [...] have followup scheduledHe continues Xarelto 20 per slurry control operator helper but questions if this raises a bleeding [...] appointment scheduled with Dr. Quiroz, ID, yet. RC-Yjuigytwqc-Nznypocw [place] DO Work Phone: 05-07-2022 History of Present [...] should start fluticasone.He continues Hizentra infusions from [employer], which are going well with no SE. His states his dose was never increased in Apr 2022. XR-Zluputymde-Awjdbtrv 2100 DO Work Phone: 05-07-2022 History of [...] should start fluticasone.He continues Hizentra infusions from [employer], which are going well with no SE. His states his dose was never increased in Apr 2022. OS-Gvbqatripl-Gwznqwqs 2100 DO Work Phone: 10-25-2021 History of [...] yet.A had persistent Sx and saw a bowl topper at [facility], Dr. Rabia Jacobson, who performed bronchoscopy [...] when he spoke to him last month. HU-Volrvpebof-Mjqqbfap [place] DO Work Phone: 10-25-2021 History of Present [...] yet.A had persistent Sx and saw a bowl topper at [facility], Dr. Rabia Jacobson, who performed bronchoscopy [...] when he spoke to him last month. MF-Lxyqqzdbuv-Lxwipr Work Phone: 06-11-2021 History of Present illness [...] susceptible to levofloxacin but intermediate susceptibility to ypuzyqorxd23/23/2020 Klebsiella pneumoniae susceptible to Cipro/levo, tobramycin and TMP-SMXTODAY 06/12/2021: -Infectious Disease-[facility] Work Phone: 06-11-2021 History of Present [...] susceptible to levofloxacin but intermediate susceptibility to iwmupwjtdq03/23/2020 Klebsiella pneumoniae susceptible to Cipro/levo, tobramycin and [...] off 16 days. And refill pending. [facility] Work Phone: 05-15-2021 History of [...] more in the winter.His grandson is at [facility]. He is studying medicine.Kidneys are stable. 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) Immunodeficiency with predominant T-cell defect, unspecified [facility] Bronchiectasis without complication (CMS/HCC)- Primary 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) documented in this encounter [facility] Work Phone: Evaluation note* Diagnosis Pneumonia due to Pseudomonas species, unspecified laterality, unspecified part of lung (CMS/HCC)- Primary Bronchiectasis without complication (CMS/HCC) documented in this encounter [facility] Work Phone: Evaluation note* Diagnosis CVID (common variable immunodeficiency) (CMS/HCC)- Primary Common variable immunodeficiency documented in this encounter [facility] Work Phone: Evaluation noteNo assessment information available [facility] Work Phone: Evaluation note* Diagnosis CLL (chronic lymphocytic leukemia) (HCC)- Primary Chronic lymphoid leukemia, without mention of having achieved remission Neutrophilic leukocytosis Other specified disease of white blood cells Chronic myeloproliferative disease (HCC) Neoplasm of uncertain behavior of other lymphatic and hematopoietic tissues Other specified diseases of blood and blood-forming organs [facility] Diagnosis Bronchiectasis without complication [...] Common variable immunodeficiency documented in this encounter [facility] Work Phone: Evaluation note* Diagnosis Gastro-esophageal reflux disease without esophagitis [facility] Diagnosis CLL (chronic lymphocytic leukemia) (HCC)- Primary Chronic lymphoid leukemia, without mention of having achieved remission Other specified diseases of blood and blood-forming organs [facility] Diagnosis Hypotension due to hypovolemia- Primary Chronic myeloproliferative disease (CMS-HCC) Pulmonary hypertension ([facility]-HCC) Other chronic pulmonary heart diseases 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 ([facility]-HCC) Chronic obstructive pulmonary disease, unspecified COPD type (CMS-HCC) Bronchiectasis (CMS-HCC) Paroxysmal atrial fibrillation ([facility]-HCC) Atrial fibrillation Chronic renal impairment, stage 3a (CMS-HCC) [facility] Diagnosis Bronchiectasis without complication [...] without complication (Multi) documented in this encounter [facility] Work Phone: Evaluation note* Diagnosis Acute exacerbation of bronchiectasis (CMS-HCC)- Primary Chronic lymphocytic leukemia of B-cell type not having achieved remission ([facility]) [facility] Diagnosis Bronchiectasis ([facility]-HCC) [facility] Diagnosis Benign non-nodular prostatic hyperplasia with lower urinary tract symptoms- Primary [facility] Diagnosis Gastro-esophageal reflux disease without esophagitis [facility] Diagnosis Chronic obstructive pulmonary disease, unspecified COPD type (CMS-HCC)- Primary Bronchiectasis (CMS-HCC) Chronic lymphocytic leukemia of B-cell type not having achieved remission ([facility]-HCC) Hyponatremia Hyposmolality and/or hyponatremia Hypotension due to hypovolemia [facility] Diagnosis Chronic obstructive pulmonary disease, unspecified COPD type (CMS-HCC)- Primary Mixed hyperlipidemia 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) Chronic lymphocytic leukemia of B-cell type not having achieved remission ([facility]-HCC) Bronchiectasis (CMS-HCC) Paroxysmal atrial fibrillation ([facility]-HCC) Atrial fibrillation Chronic renal impairment, stage 3a (CMS-HCC) [facility] Diagnosis Gastro-esophageal reflux disease without esophagitis [facility] Diagnosis Other specified hypothyroidism [facility] Diagnosis Paroxysmal atrial fibrillation ([facility]-HCC)- Primary Atrial fibrillation Mixed hyperlipidemia [facility] Diagnosis Mixed hyperlipidemia [facility] Diagnosis Chronic obstructive pulmonary disease, unspecified COPD type (CMS-HCC) [facility] Diagnosis Encounter for subsequent annual wellness visit (AWV) in Medicare patient- Primary [facility] Diagnosis Mixed hyperlipidemia Other specified hypothyroidism [facility] Diagnosis Orthostatic dizziness- Primary Pulmonary hypertension ([facility]-HCC) Other chronic pulmonary heart diseases Bronchiectasis ([facility]-HCC) Chronic obstructive pulmonary disease, unspecified COPD type (CMS-HCC) [facility] Diagnosis Hypotension due to hypovolemia- Primary Pulmonary hypertension (CMS-HCC) Other chronic pulmonary heart diseases Bronchiectasis ([facility]-HCC) Chronic obstructive pulmonary disease, unspecified COPD type ([facility]-HCC) [facility] Diagnosis Lower urinary tract symptoms (LUTS)- Primary [facility] Diagnosis Urinary tract infection due [...] Everywhere. * Benign prostatic hyperplasia (enlarged prostate) (Thai) [facility]ructionsNot on file documented in this encounterPro[facility] SystemInstructionsNot on file documented in this encounterProMedica Health SystemInstructionsNot on file documented in this encounterPro[facility] SystemInstructionsNot on file documented in this encounterProMedims Health SystemInstructionsNot on file documented in this encounterProMedims Health SystemInstructionsNot on file documented in this encounterProMedica Health SystemInstructionsNot on file documented in this encounterProMedica Health SystemInstructionsNot on file documented in this encounterProAd[facility] SystemInstructionsNot on file documented in this encounterProAdams [facility] Hospital SystemReason for referral (narrative)* Consultation (Routine) - Authorized Specialty Diagnoses / Procedures Referred By Vineet miner Referred To Contact Infectious Diseases Diagnoses Bronchiectasis without complication (CMS/HCC) Procedures Follow Up In Infectious Disease Sweetie Pop MD [address] [facility] [place][note 2], [place] [phone] Referral ID Status Reason Start Date Expiration Date V isits Requested Visits Authorized [id number] Authorized 02/11/2023 02/11/2024 1 1 [facility] Work Phone: Reason for visit Narrative* Consultation (Routine) - Authorized Specialty Diagnoses / Procedures Referred By Vineet miner Referred To Contact Infectious Diseases Diagnoses Bronchiectasis without complication (CMS/HCC) Procedures Follow Up In Infectious Disease Sweetie Pop MD [address] [facility] [place]note 2], [place] [phone] Referral ID Status Reason Start Date Expiration Date V isits Requested Visits Authorized [id number] Authorized 02/11/2023 02/11/2024 1 1 [facility] Work Phone: Family History Grandmother [...] care physician. 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 Last serum creatinine was 1.43 and [...] COMPUTED TOMOGRAPHY THORAX W/CONTRAST Danis Self MD [address] [place] [address] [place] [address] [place] [address] Referral ID Status Reason Start Date Expiration Date Visits Requested Visits Authorized [id number] Authorized Auto-Generat ed Referral 06/30/2024 06/01/2025 1 1 Specialty Diagnoses / Procedures Referred By Vineet t Referred To Contact CT IMAGING Diagnoses CLL (chronic lymphocytic leukemia) (HCC) Procedures CT ABD/PEL W IVCON CT ABD & PELVIS W/CONTRAST Danis Self MD [address] [place] [address] [place] [address] [place] [address] Referral ID Status Reason Start Date Expiration Date Visits Requested Visits Authorized [id number] Authorized Auto-Generat ed Referral 06/30/2024 06/01/2025 1 1 Specialty Diagnoses / Procedures Referred By Vineet t Referred To Contact Diagnoses Orthostatic dizziness Pulmonary hypertension (CMS-HCC) Procedures Echo complete W/O contrast Blaise Marie, DO [address] [place] [address] [facility] [address] [place] [address] Phone: [phone] Referral ID Status Reason Start Date Expiration Date V isits Requested Visits Authorized [id number] Pending Review 12/29/2023 12/28/2024 1 1 Additional [...] CREATED AUTHOR AUTHOR'S ORGANIZ ATION 06/21/2022 [facility] DATE CREATED AUTHOR AUTHOR'S ORGANIZ ATION 11/13/2022 [facility] DATE CREATED AUTHOR AUTHOR'S ORGANIZ ATION 11/17/2022 [facility] DATE CREATED AUTHOR AUTHOR'S ORGANIZ ATION 02/16/2024 [facility] DATE CREATED AUTHOR AUTHOR'S ORGANIZ ATION 04/29/2024 [facility] DATE CREATED AUTHOR AUTHOR'S ORGANIZ ATION 05/04/2024 [facility] DATE CREATED AUTHOR AUTHOR'S ORGANIZ ATION 05/05/2024 [facility] DATE CREATED AUTHOR AUTHOR'S ORGANIZ ATION 05/13/2024 [facility] Comments (unrecognize d section and content) In the event this informatio n is protected by the Federal Confidentiality of Alcohol and Drug Abuse Patient Records regulations: The Federal rules restrict any use of the information to criminally investigate or prosecute any alcohol or drug abuse patient.[facility] Center[facility] the event this information is protected by the Federal Confidentiality of Alcohol and Drug Abuse Patient Records regulations: The Federal rules restrict any use of the information to criminally investigate or prosecute any alcohol or drug abuse patient.[facility] CenterIn the event this information is protected by the Federal Confidentiality of Alcohol and Drug Abuse Patient Records regulations: The Federal rules restrict any use of the information to criminally investigate or prosecute any alcohol or drug abuse patient.[facility] CenterIn the event this information is protected by the Federal Confidentiality of Alcohol and Drug Abuse Patient Records regulations: The Federal rules restrict any use of the information to criminally investigate or prosecute any alcohol or drug abuse patient.[facility] Reason for Visit (unrecogniz ed [...] PT HAS HAD LABS, EKG, [facility] AT [facility] Reason Comments medicare annual wellness Reason Onset Date Comments Transition Of Care 12/19/2023 Reason Comments Follow-up Reason Comments Blood Pressure Check Care Teams (unrecognized sec tion and content) Certified Orthoptist Relationship Specialty Start Date End Date Blaise Marie [address] [place] [address] PCP - General Internal Medicine 01/26/23 Certified Orthoptist Relationship Specialty Start Date End Date Blaise Marie DO [address] [place] [address] PCP - General 04/12/16 Certified Orthoptist Relationship Specialty Start Date End Date Blaise Marie DO [address] [place] [address] PCP - General 04/12/16 Certified Orthoptist Relationship Specialty Start Date End Date Blaise Marie DO [address] [place] [address] PCP - General 04/12/16 Team Status: Active Member Role Status Dates Blaise Marie DO Primary Care Provider Active Team Status: Inactive Member Role Status Dates Gabrielle Siegel APRN Attending Provider Active Start: December 15, 2023 End: December 15, 2023 Blaise Marie DO Primary Care Provider Active Sta rt: December 15, 2023 End: December 15, 2023 Certified Orthoptist Relationship Specialty Start Date End Date Blaise Marie [address] [place] [address] PCP - General Internal Medicine 01/26/23 Certified Orthoptist Relationship Specialty Start Date End Date Blaise Marie DO PCP - General 04/12/16 Sweetie Pop MD [address] [facility], [place] [address] Referring Physician Allergy and Immunology 03/05/24 Certified Orthoptist Relationship Specialty Start Date End Date Blaise Marie DO [address] [place] [address] PCP - General Internal Medicine 12/15/23 [facility] 01/19/24 Certified Orthoptist Relationship Specialty Start Date End Date Blaise Marie [address] [place] [address] PCP - General Internal Medicine 01/26/23 Certified Orthoptist Relationship Specialty Start Date End Date Blaise Marie [address] [place] [address] PCP - General Internal Medicine 01/26/23 Certified Orthoptist Relationship Specialty Start Date End Date Blaise Marie DO [address] [place] [address] PCP - General Internal Medicine 12/15/23 [facility] Nurse [facility] 01/19/24 Certified Orthoptist Relationship Specialty Start Date End Date Blaise Marie DO PCP - General 04/12/16 Sweetie Pop MD [address] [place] [address], [place] [address] Referring Physician Allergy and Immunology 03/05/24 Certified Orthoptist Relationship Specialty Start Date End Date Blaise Marie DO [address] [place] [address] PCP - General Internal Medicine 12/20/16 Certified Orthoptist Relationship Specialty Start Date End Date Blaise Marie DO [address] [place] [address] PCP - General Internal Medicine 12/20/16 Certified Orthoptist Relationship Specialty Start Date End Date Blaise Marie DO [address] [place] [address] PCP - General Internal Medicine 12/20/16 Certified Orthoptist Relationship Specialty Start Date End Date Blaise Marie DO [address] [place] [address] PCP - General Internal Medicine 12/20/16 Certified Orthoptist Relationship Specialty Start Date End Date Blaise Marie DO [address] [facility] [place] [address] PCP - General Internal Medicine 12/20/16 Certified Orthoptist Relationship Specialty Start Date End Date Blaise Marie DO [address] [facility] [place] [address] PCP - General Internal Medicine 12/20/16 Whitney Schaefer [facility] Nurse - [employer] 09/15/23 Certified Orthoptist Relationship Specialty Start Date End Date Blaise Marie DO [address] [place] [address] PCP - General Internal Medicine 12/20/16 Whitney Schaefer [facility] Nurse - [employer] 09/15/23 Certified Orthoptist Relationship Specialty Start Date End Date Blaise Marie DO [address] [place] [address] PCP - General Internal Medicine 12/20/16 Whitney Schaefer [facility] Nurse - [employer] 09/15/23 Certified Orthoptist Relationship Specialty Start Date End Date Blaise Marie DO [address] [place] [address] PCP - General Internal Medicine 12/20/16 Whitney Schaefer [facility] Nurse - [employer] 09/15/23 Certified Orthoptist Relationship Specialty Start Date End Date Blaise Marie DO [address] [place] [address] PCP - General Internal Medicine 12/15/23 Lucía Glover [facility]CM Nurse - [employer] 11/22/23 Certified Orthoptist Relationship Specialty Start Date End Date Blaise Marie DO [address] [place] [address] PCP - General Internal Medicine 12/15/23 Lucía Glover [facility]CM Nurse - [employer] 11/22/23 Certified Orthoptist Relationship Specialty Start Date End Date Blaise Marie DO [address] [place] [address] PCP - General Internal Medicine 12/15/23 Lucía Glover [facility] Nurse - [employer] 11/22/23 Certified Orthoptist Relationship Specialty Start Date End Date Blaise Marie DO [address] [place] [address] PCP - General Internal Medicine 12/15/23 Lucía Glover [facility] Nurse - [employer] 11/22/23 Certified Orthoptist Relationship Specialty Start Date End Date Blaies Marie DO [address] [place] [address] PCP - General Internal Medicine 12/15/23 Lucía Glover [facility] Nurse - [employer] 11/22/23 Certified Orthoptist Relationship Specialty Start Date End Date Blaise Marie DO [address] [place] [address] PCP - General Internal Medicine 12/15/23 [facility] Nurse - [employer] 01/19/24 Certified Orthoptist Relationship Specialty Start Date End Date Blaise Marie DO [address] [place] [address] PCP - General Internal Medicine 12/15/23 [facility] Nurse - [employer] 01/19/24 Certified Orthoptist Relationship Specialty Start Date End Date Blaise Marie DO [address] [place] [address] PCP - General Internal Medicine 12/15/23 [facility] 01/19/24 Goals (unrecognized section and content) Goals [...] BE BASED ON THE PRIMARY CLINICAL RECORDS. [facility] [employer] [facility]. provides no warranty or guarantee of the accuracy or completeness of information in this document.
--- NOTE | 2024-06-14 07:16 | PC.NURSE ---
Bilateral knees purplish upon admission; better after lying on cart; moist cough noted; states productive at times
[2024-06-14] MEDS: LACTATED RINGER'S SOLUTION 1,000 ML 50 ML IV (07:29)
[2024-06-14] MEDS: LIDOCAINE HCL 1% 100 MG/10 ML MDV 5 ML INJ (07:49)
--- NOTE | 2024-06-14 08:14 | P.ON_ITS ---
Date of procedure: 06/14/24 Procedure: Procedure Diagnostic and therapeutic flexible bronchoscopy Indication Recurrent mucus plugging secondary to bronchiectasis Findings 1. Diffuse mucus plugging throughout the bronchial tree. 2. Chronic inflammation of the endobronchial mucosa. 3. No endobronchial lesions. Anesthesia 1. General anesthesia - please see their records 2. Lidocaine 1% - 5mL Specimens Bronchalveolar lavage of the left lower lobe Estimated blood loss None Complications None Description Informed consent was obtained after risks, benefits, and alternatives were discussed with the patient.? Time out was initiated to confirm the correct patient, site, and procedure with all present voicing in the affirmative. Patient was brought to the operating room suite where noninvasive monitoring was utilized.? Sedation & anesthesia were administered by the anesthesia department- please refer to their records for further information.? Tape was placed over the patient's eyes to prevent spillage of secretions.? A laryngeal mask airway was placed by anesthesia.? However, the patient's peak pressures were elevated and the decision was made to convert to endotracheal intubation by anesthesia. An endotracheal tube was placed by anesthesia. Due to the endotracheal tube, the larynx, vocal cords, and proximal trachea were unable to be examined. The distal trachea was visualized without any gross tracheal lesions. 5mL of 1% lidocaine were instilled topically to the main khanh.? The main khanh was sharp without splaying or evidence of underlying mass. There were secretions noted in the right main bronchus. They extended into the right upper, middle, and lower lobes. Mucus plugs were thick and tenacious, but did not clog the bronchoscope. Once the larger plugs were cleared, I was better able to visualize the bronchial tree. The bronchoscope was then advanced through the right main bronchus to the right upper lobe, where the apical, posterior, and anterior segments were visualized.? The bronchoscope was advanced through the bronchus intermedius to the right middle lobe or the medial and lateral segments visualized.? The bronchoscope was then advanced to the right lower lobe superior, medial, anterior, lateral, and posterior basilar segments.? Remnant mucus plugs were lavaged and removed as they were encountered. No endobronchial lesions were noted. The bronchoscope was retracted to the main khanh and advanced through the left main bronchus to the left upper lobe where the upper division apicoposterior and anterior, as well as lingular superior and inferior segments were visualized.? The bronchoscope was then advanced into the left lower lobe where the superior, anteromedial, lateral, and posterior basilar segments visualized.? Mucus plugs were cleared as they were encountered. No endobronchial lesions were noted. Next, a bronchoalveolar lavage was obtained from the left lower lobe. Once adequate fluid sample was obtained, the trap was removed. I maneuvered throughout the bronchial tree to remove any remnant plugs. The bronchoscope was withdrawn.? Patient tolerated procedure well. was updated on the patient's condition. Disposition: same day
--- NOTE | 2024-06-14 08:34 | PC.NURSE ---
Patient continuously coughing since arrival after bronchoscopy. Not bringing up any secretions at this time. Offered sips of water and cool cloth, patient declines. Patient in an upright position with O2 in place.
--- NOTE | 2024-06-14 09:23 | PC.NURSE ---
Patients cough improving. At rest much less cough. Continues to not expectorate anything.
== END 2024-06-14 09:30 | disposition home or self-care (01) ==
PROVIDERS: PCP Internal Medicine; Visit Provider Internal Medicine
PROC: (CPT 31624; principal; 2024-06-14 07:30)
DX: J47.9 Bronchiectasis, uncomplicated (principal); Z79.01 Long term (current) use of anticoagulants; J44.9 Chronic obstructive pulmonary disease, unspecified; J45.991 Cough variant asthma; J96.11 Chronic respiratory failure with hypoxia; D83.9 Common variable immunodeficiency, unspecified; Z87.891 Personal history of nicotine dependence; Z99.81 Dependence on supplemental oxygen; K21.9 Gastro-esophageal reflux disease without esophagitis
CPT/HCPCS: 31624; 36415; 87015; 87070; 87102; 87116; 87205; 87206; 99999; J0330; J2704; J3010